=== PATIENT | male | born 1945 | race Caucasian/White ===

== ENCOUNTER 2017-07-09 18:58 | Inpatient (IN) ==
--- NOTE | 2017-07-09 19:22 | Emergency Department Note ---
Disposition Clinical Impression: Sepsis Qualifiers: Sepsis type: sepsis due to unspecified organism Qualified Code(s): A41.9 - Sepsis, unspecified organism UTI (urinary tract infection) Qualifiers: Urinary tract infection type: catheter-associated UTI Indwelling urinary catheter type: indwelling urethral catheter Encounter type: initial encounter Qualified Code(s): T83.511A - Infection and inflammatory reaction due to indwelling urethral catheter, initial encounter Disposition: Admitted As Inpatient Condition: Critical Time of Disposition: 07:43 General Adult HPI - General Chief complaint: ED Weakness Stated complaint: weakness Time Seen by Provider: 07/09/17 19:18 Source: patient Limitations: no limitations Nursing Notes Reviewed: Yes Vital Signs Reviewed: Yes - History of Present Illness HPI Narrative: Elevation brought in by EMS for generalized weakness. He stated that he will is unable to ambulate and had to hold himself up on a bathroom sink. This all started today. Patient has no complaints at this time other than generalized weakness. Pain Scale: 0 - Related Data Home Medications Medication Instructions Recorded Confirmed Labetalol HCl 300 mg PO TID 10/25/16 07/09/17 Lisinopril [Zestril] 40 mg PO DAILY 10/25/16 07/09/17 Pantoprazole Sodium [Protonix] 40 mg PO DAILY 10/25/16 07/09/17 Potassium Chloride [K-Tab ER] 20 meq PO DAILY 10/25/16 07/09/17 Rivaroxaban [Xarelto] 20 mg PO DAILY 10/25/16 07/09/17 SitaGLIPtin [Januvia] 100 mg PO DAILY 10/25/16 07/09/17 Tramadol HCl [Ultram] 50 mg PO TID PRN 10/25/16 07/09/17 Furosemide [Lasix] 40 mg PO DAILY 01/12/17 07/09/17 Carbidopa/Levodopa 1 tab PO HS 07/09/17 07/09/17 [Carbidopa-Levodopa 25-100 Tab] Cholecalciferol (Vitamin D3) 5,000 unit PO DAILY 07/09/17 07/09/17 [Vitamin D3] Metformin HCl [Metformin HCl ER] 1,000 mg PO BID 07/09/17 07/09/17 Allergies Allergy/AdvReac Type Severity Reaction Status Date / Time No Known Allergies Allergy Verified 09/05/15 12:17 Limitations: ROS unobtainable due to patients medical condition (He is alert and oriented to person place and time however his confused ) Past Medical History - Past Medical History Medical history: Reports: COPD, diabetes, GERD, hypertension, venous stasis Surgical history: Reports: appendectomy, herniorrhaphy, knee replacement, orthopedic, other Psychiatric history: Reports: no psych history - Social History Smoking Status: Never smoker Smokeless Tobacco Status: No Alcohol use: Reports: none Drug use: Reports: none Physical Exam - General Limitations: no limitations General appearance: alert, in no apparent distress, lethargic - Head Head exam: atraumatic, normocephalic, normal inspection - Eye Eye exam: Present: normal appearance, PERRL, EOMI. Absent: scleral icterus - ENT ENT exam: normal exam, normal oropharynx, mucous membranes moist - Neck Neck exam: Present: normal inspection, full ROM, trachea midline. Absent: tenderness, meningismus, lymphadenopathy - Chest Chest inspection: Present: normal inspection, symmetric chest wall rise. Absent : tenderness - Respiratory Respiratory exam: Present: normal lung sounds bilaterally. Absent: respiratory distress, accessory muscle use - Cardiovascular Cardiovascular exam: Present: regular rate, normal rhythm, normal heart sounds - Abdominal Exam Abdominal exam: Present: soft, Non-Tender, normal bowel sounds. Absent: tenderness, distention, guarding, rebound, rigidity, organomegaly - Extremities Exam Extremities exam: Present: normal inspection, full ROM, normal capillary refill. Absent: tenderness, pedal edema - Back Exam Back exam: Present: normal inspection, full ROM. Absent: tenderness, CVA tenderness (R), CVA tenderness (L) - Neurological Exam Neurological exam: Present: alert, oriented X3, other (Somewhat confused.) - Psychiatric Psychiatric exam: Present: normal affect, normal mood - Skin Skin exam: Present: warm, dry, intact, normal color. Absent: rash, cyanosis, diaphoresis, erythema Course Course Narrative: Patient brought in by EMS for possible fall. They state that he did not actually fall however he lost his balance and had to lean over the bathroom sink until someone could assist him in moving again. He does have a Adame catheter that he thinks he tripped over. He denies any loss of consciousness. The Adame is placed due to a malpositioned urethra. The patient appears lethargic at this time. He is alert and oriented to person place and time however quickly goes to sleep and talks about random things. He will not answer most of my questions. He appears to be somewhat confused. Patient's lung sounds are clear heart sounds are normal. He has a foul smell of urine about him. His abdomen is soft and nontender. His pressure is normal heart rate is tachycardic. I am concerned for sepsis with this patient. We have done a sepsis workup. Antibiotics and give him a fluid challenge. However he does have a history of CHF so we will not do a full 30 mg/kg bolus as he is a large individual. - Reevaluation(s) Reevaluation #1: Male patient has a UTI. I looked at the last culture. He has had several different strands of different bacterial strands in his urine. The last culture was resistant to several antibiotics. I have chosen Rocephin and levofloxacin as he was sensitive to this. Patient has received 2 L of fluids. He did appear to be dehydrated on arrival here. He does have a history of CHF so he stopped at 2 L. He was not hypotensive while here. However he was somewhat confused. I am not sure how far this is from his baseline. His family also appears to be somewhat confused. We will admit patient to the hospital. Time: 21:25 - Consultations Consultation #1: Dr Jackson accepted Pt in stable condition. Time: 21:45 Vital Signs Temperature 97.7 F 07/09/17 19:00 Pulse Rate 122 07/09/17 19:00 Respiratory Rate 20 07/09/17 19:00 Blood Pressure 120/67 07/09/17 19:00 O2 Sat by Pulse Oximetry 87 07/09/17 19:00 Temperature 99.0 F 07/10/17 07:24 Pulse Rate 86 07/10/17 07:24 Respiratory Rate 19 07/10/17 07:24 Blood Pressure 105/69 07/10/17 07:24 O2 Sat by Pulse Oximetry 97 07/10/17 07:24 Oxygen Delivery Oxygen Delivery Room Air Medical Decision Making - Medical Records Medical records reviewed: Yes I reviewed the patient's medical records. - Lab Data Lab results reviewed: Yes I reviewed the patient's lab results. Result diagrams: 07/10/17 05:35 07/10/17 05:35 Lab Results 07/09/17 07/09/17 07/09/17 Range/Units 19:14 19:14 19:14 WBC 20.4 H (4.3-11.1) K/mcL RBC 4.73 (4.19-5.50) M/mcL Hgb 12.5 L (12.9-16.9) g/dL Hct 40.7 (37.5-50.1) % MCV 86.0 (83.0-100.0) fL MCH 26.4 L (28.0-33.3) pg MCHC 30.7 L (31.6-35.5) g/dL RDW 14.5 (11.5-14.5) % Plt Count 270 (140-400) K/mcL MPV 10.8 (9.4-12.4) fL Immature Gran % 0.4 (0-4) % Seg Neutrophils % 91.6 % Lymphocytes % 2.2 % Monocytes % 5.4 % Eosinophils % 0.1 % Basophils % 0.3 % Neutrophils # 18.7 H (1.6-8.9) K/mcL Lymphocytes # 0.5 L (0.6-4.6) K/mcL Monocytes # 1.1 (0.0-1.3) K/mcL Eosinophils # 0.0 (0.0-0.6) K/mcL Basophils # 0.1 (0.0-0.2) K/mcL PT 14.2 H (9.4-12.1) Seconds INR 1.3 APTT 30.0 (26.0-36.0) Seconds Sodium 133 L (136-145) mEq/L Potassium 4.1 (3.5-4.5) mEq/L Chloride 96 L (98-109) mEq/L Carbon Dioxide 28 (19-29) mEq/L BUN 30 H (8-26) mg/dL Creatinine 1.38 H (0.72-1.25) mg/dL Est GFR ( Amer) > 60 (> 60) Est GFR (Non-Af Amer) 51 L (> 60) BUN/Creatinine Ratio 22 (6-26) Glucose 265 H (70-99) mg/dL Calculated Osmolality 291 (280-300) Lactic Acid (0.5-2.2) mmol/L Calcium 9.4 (8.6-10.8) mg/dL Phosphorus 1.8 L (2.3-4.7) mg/dL Magnesium 1.4 L (1.6-2.6) mg/dL Total Bilirubin 0.8 (0.2-1.2) mg/dL Direct Bilirubin 0.4 (0.0-0.5) mg/dL Indirect Bilirubin 0.4 (0.0-1.2) mg/dL AST 15 (5-34) Units/L ALT 11 (0-55) Units/L Alkaline Phosphatase 96 (38-126) Units/L Troponin I (0-0.03) ng/mL Serum Total Protein 7.0 (6.0-8.3) g/dL Albumin 3.4 L (3.5-5.0) g/dL Globulin 3.6 H (2.4-3.5) g/dL Albumin/Globulin Ratio 0.9 L (1.1-2.2) Urine Color (Yellow) Urine Clarity (Clear) Urine pH (5.0-8.0) pH Units Ur Specific Ruffin (1.010-1.025) Urine Protein (Neg-Trace) mg/dL Urine Glucose (UA) (Normal) mg/dL Urine Ketones (Negative) mg/dL Urine Blood (Negative) Urine Nitrite (Negative) Urine Bilirubin (Negative) Urine Urobilinogen (Normal) mg/dL Ur Leukocyte Esterase (Negative) Urine Microscopic RBC (0-3) per hpf Urine Microscopic WBC (0-3) per hpf Ur Squamous Epith Cells (None-Few) per lpf Urine Bacteria (None-Few) per hpf Hyaline Casts (None-Few) per lpf Ur Culture Indicated? (NO) 07/09/17 07/09/17 07/09/17 Range/Units 19:14 19:53 20:53 WBC (4.3-11.1) K/mcL RBC (4.19-5.50) M/mcL Hgb (12.9-16.9) g/dL Hct (37.5-50.1) % MCV (83.0-100.0) fL MCH (28.0-33.3) pg MCHC (31.6-35.5) g/dL RDW (11.5-14.5) % Plt Count (140-400) K/mcL MPV (9.4-12.4) fL Immature Gran % (0-4) % Seg Neutrophils % % Lymphocytes % % Monocytes % % Eosinophils % % Basophils % % Neutrophils # (1.6-8.9) K/mcL Lymphocytes # (0.6-4.6) K/mcL Monocytes # (0.0-1.3) K/mcL Eosinophils # (0.0-0.6) K/mcL Basophils # (0.0-0.2) K/mcL PT (9.4-12.1) Seconds INR APTT (26.0-36.0) Seconds Sodium (136-145) mEq/L Potassium (3.5-4.5) mEq/L Chloride (98-109) mEq/L Carbon Dioxide (19-29) mEq/L BUN (8-26) mg/dL Creatinine (0.72-1.25) mg/dL Est GFR ( Amer) (> 60) Est GFR (Non-Af Amer) (> 60) BUN/Creatinine Ratio (6-26) Glucose (70-99) mg/dL Calculated Osmolality (280-300) Lactic Acid 1.5 (0.5-2.2) mmol/L Calcium (8.6-10.8) mg/dL Phosphorus (2.3-4.7) mg/dL Magnesium (1.6-2.6) mg/dL Total Bilirubin (0.2-1.2) mg/dL Direct Bilirubin (0.0-0.5) mg/dL Indirect Bilirubin (0.0-1.2) mg/dL AST (5-34) Units/L ALT (0-55) Units/L Alkaline Phosphatase (38-126) Units/L Troponin I 0.01 (0-0.03) ng/mL Serum Total Protein (6.0-8.3) g/dL Albumin (3.5-5.0) g/dL Globulin (2.4-3.5) g/dL Albumin/Globulin Ratio (1.1-2.2) Urine Color Dark Yellow (Yellow) Urine Clarity Cloudy A (Clear) Urine pH 6.0 (5.0-8.0) pH Units Ur Specific Ruffin 1.023 (1.010-1.025) Urine Protein 30 H (Neg-Trace) mg/dL Urine Glucose (UA) Normal (Normal) mg/dL Urine Ketones Trace H (Negative) mg/dL Urine Blood Large H (Negative) Urine Nitrite Positive A (Negative) Urine Bilirubin Negative (Negative) Urine Urobilinogen Normal (Normal) mg/dL Ur Leukocyte Esterase Moderate H (Negative) Urine Microscopic RBC 15-30 H (0-3) per hpf Urine Microscopic WBC 15-30 H (0-3) per hpf Ur Squamous Epith Cells Many H (None-Few) per lpf Urine Bacteria None Seen (None-Few) per hpf Hyaline Casts Few (None-Few) per lpf Ur Culture Indicated? YES A (NO) 07/09/17 Range/Units 21:20 WBC (4.3-11.1) K/mcL RBC (4.19-5.50) M/mcL Hgb (12.9-16.9) g/dL Hct (37.5-50.1) % MCV (83.0-100.0) fL MCH (28.0-33.3) pg MCHC (31.6-35.5) g/dL RDW (11.5-14.5) % Plt Count (140-400) K/mcL MPV (9.4-12.4) fL Immature Gran % (0-4) % Seg Neutrophils % % Lymphocytes % % Monocytes % % Eosinophils % % Basophils % % Neutrophils # (1.6-8.9) K/mcL Lymphocytes # (0.6-4.6) K/mcL Monocytes # (0.0-1.3) K/mcL Eosinophils # (0.0-0.6) K/mcL Basophils # (0.0-0.2) K/mcL PT (9.4-12.1) Seconds INR APTT (26.0-36.0) Seconds Sodium (136-145) mEq/L Potassium (3.5-4.5) mEq/L Chloride (98-109) mEq/L Carbon Dioxide (19-29) mEq/L BUN (8-26) mg/dL Creatinine (0.72-1.25) mg/dL Est GFR ( Amer) (> 60) Est GFR (Non-Af Amer) (> 60) BUN/Creatinine Ratio (6-26) Glucose (70-99) mg/dL Calculated Osmolality (280-300) Lactic Acid 1.3 (0.5-2.2) mmol/L Calcium (8.6-10.8) mg/dL Phosphorus (2.3-4.7) mg/dL Magnesium (1.6-2.6) mg/dL Total Bilirubin (0.2-1.2) mg/dL Direct Bilirubin (0.0-0.5) mg/dL Indirect Bilirubin (0.0-1.2) mg/dL AST (5-34) Units/L ALT (0-55) Units/L Alkaline Phosphatase (38-126) Units/L Troponin I (0-0.03) ng/mL Serum Total Protein (6.0-8.3) g/dL Albumin (3.5-5.0) g/dL Globulin (2.4-3.5) g/dL Albumin/Globulin Ratio (1.1-2.2) Urine Color (Yellow) Urine Clarity (Clear) Urine pH (5.0-8.0) pH Units Ur Specific Ruffin (1.010-1.025) Urine Protein (Neg-Trace) mg/dL Urine Glucose (UA) (Normal) mg/dL Urine Ketones (Negative) mg/dL Urine Blood (Negative) Urine Nitrite (Negative) Urine Bilirubin (Negative) Urine Urobilinogen (Normal) mg/dL Ur Leukocyte Esterase (Negative) Urine Microscopic RBC (0-3) per hpf Urine Microscopic WBC (0-3) per hpf Ur Squamous Epith Cells (None-Few) per lpf Urine Bacteria (None-Few) per hpf Hyaline Casts (None-Few) per lpf Ur Culture Indicated? (NO) - Radiology Data Radiology results reviewed: Yes I reviewed the patient's radiology results. Chest X-Ray 07/09/17 19:20 IMPRESSION: Mild asymmetric prominence of the left perihilar markings, likely accentuated by decreased inspiratory effort. No overt failure. D/ / Jeovanny Lewis MD / Jeovanny Lewis MD Interpreting Provider: Jeovanny Lewis MD - EKG Data EKG #1 EKG attestation: Yes I reviewed and interpreted this EKG. EKG results narrative: Sinus tachycardia at a rate of 1:15. Pulse 171. QS duration is 102. QT is 3:15. QTC is 383. No signs of acute ischemia. No significant change from previous EKG dated 10/24/2016. Attestation Statement - Attestation Attestation: I, Anthony Arreguin MD, personally evaluated this patient and discussed their management with the resident physician. I reviewed the resident's note and agree with the documented findings, medical decision making, and plan of care. 71-year-old male presents to the emergency department with complaint of increased generalized weakness and confusion. Patient states that he just had a spell of weakness and was unable to ambulate. He was standing and leaning on a cabinet. He normally ambulates using a walker. Family reports that he has been weaker than usual the past few days and also more confused than usual. They have not noticed any fever. Patient has home oxygen that he uses as needed. Family reports he has been using it more the last few days. No significant cough or obvious shortness of breath. No chest pain. No vomiting or diarrhea. Patient has a chronic indwelling Adame catheter and states that last night he dropped the bag on the floor and it pulled on the catheter causing some blood in the urine. On examination the patient is a morbidly obese elderly male in no acute distress. He is alert and answers questions but seems pleasantly confused. She appears slightly pale. No cyanosis or diaphoresis. Chest is nontender to palpation. Breath sounds are equal bilaterally. Heart regular with a mild tachycardia. Abdomen soft and nontender with normal bowel sounds. Labs reviewed. WBC 20. 91% segs. UTI. No acute infiltrate on chest x-ray. The hospitalist, Dr. Jackson, was consulted and accepted admission of the patient.
[2017-07-09 19:40] LABS: Basophils # 0.1 K/mcL (0.0-0.2); Basophils % 0.3 %; Eosinophils % 0.1 %; Hematocrit 40.7 % (37.5-50.1); Hemoglobin 12.5 g/dL (12.9-16.9); INR 1.3; Immature Granulocytes % 0.4 % (0-4); Lymphocytes # 0.5 K/mcL (0.6-4.6); Lymphocytes % 2.2 %; Mean Corpuscular HGB Conc 30.7 g/dL (31.6-35.5); Mean Corpuscular Hemoglobin 26.4 pg (28.0-33.3); Mean Platelet Volume 10.8 fL (9.4-12.4); Monocytes # 1.1 K/mcL (0.0-1.3); Monocytes % 5.4 %; Neutrophils # 18.7 K/mcL (1.6-8.9); Platelet Count 270 K/mcL (140-400); Prothrombin Time 14.2 Seconds (9.4-12.1); Red Blood Count 4.73 M/mcL (4.19-5.50); Red Cell Distribution Width 14.5 % (11.5-14.5); Segmented Neutrophils % 91.6 %
[2017-07-09 19:43] LABS: Alanine Aminotransferase 11 Units/L (0-55); Albumin 3.4 g/dL (3.5-5.0); Albumin/Globulin Ratio 0.9 (1.1-2.2); Alkaline Phosphatase 96 Units/L (38-126); Aspartate Amino Transferase 15 Units/L (5-34); BUN/Creatinine Ratio 22 (6-26); Bilirubin,Direct 0.4 mg/dL (0.0-0.5); Bilirubin,Indirect 0.4 mg/dL (0.0-1.2); Bilirubin,Total 0.8 mg/dL (0.2-1.2); Blood Urea Nitrogen 30 mg/dL (8-26); Calcium 9.4 mg/dL (8.6-10.8); Carbon Dioxide 28 mEq/L (19-29); Chloride 96 mEq/L (98-109); Globulin 3.6 g/dL (2.4-3.5); Glucose 265 mg/dL (70-99); Magnesium 1.4 mg/dL (1.6-2.6); Osmolality,Calculated 291 (280-300); Phosphorous 1.8 mg/dL (2.3-4.7); Potassium 4.1 mEq/L (3.5-4.5); Sodium 133 mEq/L (136-145); eGFR For African Americans > 60 (> 60); eGFR For Non-African Americans 51 (> 60)
[2017-07-09] MEDS: 0.9 % Sodium Chloride 1,000 ML IVC SCH ×2 (19:55→20:56)
[2017-07-09 20:57] LABS: Bilirubin,Urine Negative (Negative); Blood,Urine Large (Negative); Clarity,Urine Cloudy (Clear); Color,Urine Dark Yellow (Yellow); Glucose,Urine (UA) Normal (Normal); Ketones,Urine Trace mg/dL (Negative); Leukocyte Esterase,Urine Moderate (Negative); Nitrite,Urine Positive (Negative); Protein,Urine 30 mg/dL (Neg-Trace); Specific Gravity,Urine 1.023 (1.010-1.025); Urobilinogen,Urine Normal (Normal)
[2017-07-09 21:02] LABS: Bacteria,Urine None Seen per hpf (None-Few); Squamous Epithelial Cell,Urine Many per lpf (None-Few); WBC,Urine 15-30 per hpf (0-3)
[2017-07-09 21:18] LABS: Hyaline Casts,Urine Few per lpf (None-Few); RBC,Urine 15-30 per hpf (0-3)
[2017-07-09] MEDS ORDERED: Levofloxacin 750 MG/150 ML 750 MG/150 ML BAG IVPB ONE (21:22)
[2017-07-09] MEDS ORDERED: Ondansetron 4 MG/2 ML VIAL IVP PRN (23:24)
[2017-07-09] MEDS ORDERED: traMADol 50 MG TABLET PO PRN (23:27)
[2017-07-09] MEDS ORDERED: *HR* Dextrose 50 % in Water (Syg) 50 ML SYRINGE IVP PRN (23:30)
[2017-07-09] MEDS ORDERED: Dextrose Gel 15 GM PO PRN ×2 (23:30)
[2017-07-09] MEDS ORDERED: D5% in Water 1,000 ML IVC PRN (23:30)
--- NOTE | 2017-07-09 23:36 | Internal Med History&Physical ---
<Ori Degroot - Last Filed: 07/10/17 01:05> Date of Encounter: 07/09/17 Time of Encounter: 22:50 Assessment and Plan (1) Sepsis Current visit: Yes Status: Acute - 2 SIRS criteria (WBC 20.4 and HR 122 in ED). Lactic acid 1.5. - Likely secondary to UTI given positive UA. - CXR found no acute abnormality. - Blood cultures and urine culture pending. - Patient had received 2L of IV NS in ED. - Start IV cefepime. - Admit to hospital for close monitoring and IV antibiotic. Time spent on admission: 40 minutes. Qualifiers: Sepsis type: sepsis due to unspecified organism Qualified Code(s): A41.9 - Sepsis, unspecified organism (2) UTI (urinary tract infection) Current visit: Yes Status: Acute - On chronic indwelling urinary catheter. - UA has positive nitrite and leukocyte esterase suggestive of UTI. Urine culture pending. - Prior urine culture from 02/21/17 grew fluoroquinolone-resistent Proteus mirabilis and ceftriaxone-resistent Enterobacter cloacae. Both are sensitive to amikacin, cefepime and Bactrim. - Start IV cefepime. Further de-escalation based on clinical picture and culture result. Qualifiers: Urinary tract infection type: catheter-associated UTI Indwelling urinary catheter type: indwelling urethral catheter Encounter type: initial encounter Qualified Code(s): T83.511A - Infection and inflammatory reaction due to indwelling urethral catheter, initial encounter; N39.0 - Urinary tract infection , site not specified (3) SUNI (acute kidney injury) Current visit: Yes Status: Acute - SCr 1.38 on admission, which is worse compared to 0.98 on 06/30/17. - Likely pre-renal secondary diuretic use and/or current sepsis. - Hold diuretic for now. - Cautious about hydration with IV fluid given patient's dCHF history. - Avoid nephrotoxin. - Continue to monitor renal function and electrolytes. (4) Hypomagnesemia Current visit: Yes Status: Acute - Mg 1.4 on admission. - Will give 1 gram of MgSO4 IV. - Continue to monitor. (5) Diastolic CHF Current visit: Yes Status: Chronic - LVEF 65% with moderate diastolic dysfunction per echo from 10/25/16. - Hold diuretic for now given current SUNI. - Cautious about IV fluid administration. - Strict I/O and daily weight. Qualifiers: Congestive heart failure chronicity: chronic Qualified Code(s): I50.32 - Chronic diastolic (congestive) heart failure (6) Diabetes mellitus Current visit: Yes Status: Chronic - Controlled DM with Hgb A1C 7.0 on 06/30/17 - Insulin sliding scale with routine AccuCheck. - Diabetic diet. Qualifiers: Diabetes mellitus type: type 2 Diabetes mellitus complication status: with unspecified complications Diabetes mellitus chcf insulin use: without emt intermediate use Qualified Code(s): E11.8 - Type 2 diabetes mellitus with unspecified complications (7) A-fib Current visit: Yes Status: Chronic - Continue beta anastacio for rate control and Xarelto for anticoagulation. Qualifiers: Atrial fibrillation type: chronic Qualified Code(s): I48.2 - Chronic atrial fibrillation (8) DVT prophylaxis Current visit: No Status: Acute - On Xarelto. Internal Medicine - H&P: HPI Chief complaint: Generalized weakness Admitted From: Emergency Dept Plans for Post Hospital Care: Home History of present illness: Mr. Jimenez is a 71 year old male with DM, HTN, GERD, chronic A-fib on Xarelto, dCHF (LVEF 65% with moderate diastolic dysfunction per echo from 10/25/16) and on chronic indwelling urinary catheter due to morbid obesity & incontinence ( last change by Dr. Goldberg on 07/03/17). Patient presented with a complaint of generalized weakness. Per ED note, patient's family reports that patient has been weaker than usual the past few days and also more confused than usual. On my encounter, there is no family member at bedside but patient is able to tell me his name, place, year and month. Patient reports having a fall in bathroom due to the generalized weakness today and unable to get up. Patient denies hitting his head or loss of consciousness. Patient also reports he dropped the urine bag on the floor last night and resulted in the catheter being partially pulled out and some blood in the urine noted afterward. Patient reports having chronic right hip pain and he may get right hip replacement in near future. Patient denies fever, chills, nausea, vomiting, diarrhea, abdominal pain, chest pain, shortness of breath, cough, vision change, hearing change, numbness/ tingling. Patient is full code. Patient was noted to have WBC 20.4 and HR 122 in ED. UA has positive nitrite and moderate leukocyte esterase suggestive of UTI and IV Levaquin and Rocephin were given along with 2L of IV NS bolus. Past Med Surg Social Fam HX - Past Medical History Medical history: arthritis, COPD, diabetes, GERD, hypertension, venous stasis Psychiatric history: no psych history - Past Surgical History Surgical History: appendectomy, herniorrhaphy, knee replacement (Left (2011) and right (2012)), orthopedic, other - Social History Smoking Status: Never smoker Smokeless Tobacco Status: No Alcohol use: none Drug use: none - Family History Mother Hx Family Cardiac Disorders: Yes (HTN) Father Hx Family Cardiac Disorders: Yes (HTN, CHF) Internal Medicine - H&P: Meds Labetalol HCl 300 mg PO TID 10/25/16 [History] Lisinopril [Zestril] 40 mg PO DAILY 10/25/16 [History] Pantoprazole Sodium [Protonix] 40 mg PO DAILY 10/25/16 [History] Potassium Chloride [K-Tab ER] 20 meq PO DAILY 10/25/16 [History] Rivaroxaban [Xarelto] 20 mg PO DAILY 10/25/16 [History] SitaGLIPtin [Januvia] 100 mg PO DAILY 10/25/16 [History] Tramadol HCl [Ultram] 50 mg PO TID PRN 10/25/16 [History] Furosemide [Lasix] 40 mg PO DAILY 01/12/17 [History] Carbidopa/Levodopa [Carbidopa-Levodopa 25-100 Tab] 1 tab PO HS 07/09/17 [History ] Cholecalciferol (Vitamin D3) [Vitamin D3] 5,000 unit PO DAILY 07/09/17 [History] Metformin HCl [Metformin HCl ER] 1,000 mg PO BID 07/09/17 [History] 3 Allergy/AdvReac Type Severity Reaction Status Date / Time No Known Allergies Allergy Verified 09/05/15 12:17 All Systems PM: A 10-system review of systems was performed and is negative for pertinent findings except as documented above in the HPI. - Constitutional Constitutional: weakness, no anorexia, no chills, no fever(s) - EENT Eyes: no change in vision Ears: no decreased hearing Nose, mouth and throat: no dysphagia, no odynophagia - Cardiovascular Cardiovascular ROS IM: no chest pain, no lightheadedness, no syncope - Respiratory Respiratory: no cough, no dyspnea, no hemoptysis - Gastrointestinal Gastrointestinal: no abdominal pain, no diarrhea, no nausea, no vomiting - Genitourinary Genitourinary ROS male: hematuria - Musculoskeletal Musculoskeletal ROS IM: arthralgias (Chronic right hip pain), no myalgias - Integumentary Integumentary IM: no pruritus, no rash - Neurological Neurological ROS: no numbness, no tingling - Hematologic/Lymphatic Hematologic/Lymphatic: no easy bleeding, no easy bruising - Constitutional Vitals: Temp Pulse Resp BP Pulse Ox 0 F L 102 20 144/87 96 07/09/17 22:39 07/09/17 21:05 07/09/17 22:39 07/09/17 22:39 07/09/17 21:05 General appearance: Present: cooperative, A&O X 3, no acute distress - Head Head exam: Present: atraumatic, normocephalic - Eye Eye exam: Present: EOMI, PERRL, conjuntiva pink, sclera anicteric - ENT ENT exam: Present: mucous membranes dry - Neck Neck exam general surgery: Present: supple, trachea midline. Absent: lymphadenopathy - Respiratory Respiratory exam: Present: CTAB. Absent: accessory muscle use, rales, rhonchi, wheezes - Cardiovascular Cardiovascular exam: Present: +S1, +S2, tachycardia. Absent: diastolic murmur, gallop, rubs, systolic murmur - GI/Abdominal GI/Abdominal exam: Present: normal bowel sounds, soft, no peritoneal signs. Absent: distended, tenderness - Additional comments: Some dry blood noted on penis and adjacent urinary catheter, likely secondary to reported prior pulling out accident. - Extremities Exam Extremities exam: Present: pedal edema (Moderate to severe BLE pitting edema.), warm, radial pulses palpable and symmetrical. Absent: calf tenderness, cyanotic - Neurological Exam Neurological exam: Present: CN II-XII intact, oriented X3, no focal deficits. Absent: pronater drift, facial droop, speech deficit - Skin Skin exam: Present: dry, warm Internal Med - H&P Results - Labs CBC & Chem 7: 07/09/17 19:14 07/09/17 19:14 <Christofer Jackson A - Last Filed: 07/10/17 04:26> Date of Encounter: 07/09/17 Assessment and Plan (1) Hypertension Current visit: Yes Status: Chronic will continue antihypertensive labetalol with BP monitoring Qualifiers: Hypertension type: essential hypertension Qualified Code(s): I10 - Essential (primary) hypertension (2) GERD (gastroesophageal reflux disease) Current visit: Yes Status: Chronic will continue home PPI Qualifiers: Esophagitis presence: without esophagitis Qualified Code(s): K21.9 - Gastro -esophageal reflux disease without esophagitis (3) COPD (chronic obstructive pulmonary disease) Current visit: Yes Status: Chronic will do PRN nebs Qualifiers: COPD type: chronic bronchitis Chronic bronchitis type: simple Qualified Code(s): J41.0 - Simple chronic bronchitis Internal Medicine - H&P: HPI History of present illness: Mr. Jimenez is a 71 year old male All Systems PM: A 10-system review of systems was performed and is negative for pertinent findings except as documented above in the HPI. - Constitutional Vitals: Temp Pulse Resp BP Pulse Ox 97.9 F 100 18 125/75 95 07/09/17 23:35 07/09/17 23:35 07/09/17 23:35 07/09/17 23:35 07/09/17 23:35 Adult male, obese looking,lying in bed, crusting around the corners of the eyes Abd: obese, scrotal swelling with erythema, tomlinson draining clear urine Extremities: significant bilateral lower extremity edema with stasis dermatitis and desquamating skin, Internal Med - H&P Results - Labs CBC & Chem 7: 07/09/17 19:14 07/09/17 19:14 - Diagnostic Studies Chest x-ray Status: image reviewed by me - Attending Attestation I personally interviewed and examined this patient and my medical decision- making was reviewed with the Resident Physician. I agree with the documented findings, disposition and treatment plan as described. Christofer Jackson MD, MPH Hospitalist
[2017-07-10] MEDS ORDERED: Magnesium Sulfate 1 GM in D5% in Water 100 ML IVPB ONE (01:43)
[2017-07-10] MEDS: Cefepime HCl 2,000 MG in D5% in Water (Mini-Bag+) 100 ML IVPB SCH ×2 (05:04→17:25)
[2017-07-10] MEDS: Acetaminophen 325 MG TABLET PO PRN (05:04)
[2017-07-10 06:13] LABS: Basophils # 0.1 K/mcL (0.0-0.2); Basophils % 0.3 %; Eosinophils % 0.1 %; Hematocrit 35.6 % (37.5-50.1); Immature Granulocytes % 0.6 % (0-4); Immature Platelets 2.8 % (1.1-6.1); Lymphocytes # 0.5 K/mcL (0.6-4.6); Lymphocytes % 3.1 %; Mean Corpuscular HGB Conc 30.9 g/dL (31.6-35.5); Mean Corpuscular Hemoglobin 26.7 pg (28.0-33.3); Mean Corpuscular Volume 86.4 fL (83.0-100.0); Mean Platelet Volume 11.1 fL (9.4-12.4); Monocytes % 6.5 %; Neutrophils # 14.2 K/mcL (1.6-8.9); Platelet Count 214 K/mcL (140-400); Red Blood Count 4.12 M/mcL (4.19-5.50); Red Cell Distribution Width 14.8 % (11.5-14.5); Segmented Neutrophils % 89.4 %
[2017-07-10 06:28] LABS: BUN/Creatinine Ratio 26 (6-26); Blood Urea Nitrogen 22 mg/dL (8-26); Calcium 8.5 mg/dL (8.6-10.8); Carbon Dioxide 30 mEq/L (19-29); Chloride 99 mEq/L (98-109); Glucose 181 mg/dL (70-99); Osmolality,Calculated 286 (280-300); Potassium 3.4 mEq/L (3.5-4.5); Sodium 134 mEq/L (136-145); eGFR For African Americans > 60 (> 60); eGFR For Non-African Americans > 60 (> 60)
[2017-07-10 06:53] LABS: Thyroid Stimulating Hormone 0.627 mcIU/mL (0.350-4.840)
[2017-07-10 07:02] LABS: Magnesium 1.7 mg/dL (1.6-2.6)
[2017-07-10] MEDS: *HR* Rivaroxaban 10 MG TABLET PO SCH (07:54)
[2017-07-10] MEDS: Insulin LISPRO 300 UNITS/3 ML VIAL SQ SCH ×4 (07:55→21:39)
--- NOTE | 2017-07-10 11:02 | Internal Med Progress Note ---
<Nuno Marie - Last Filed: 07/10/17 16:16> Date of Encounter: 07/10/17 Time of Encounter: 10:59 - Assessment and plan (1) Sepsis Current Visit: Yes Status: Acute Assessment and plan: upon admission, WBC 20.4, HR 122 lactic acid 1.5 source of infection likely secondary to UTI, chronic tomlinson catheter patient does have positive urine cultures in the past that grew proteus mirabilis, enterobacter cloacae, providecia stuarti, enterococcus faecalis. Plan: blood and urine cultures pending continue cefepime appreciate urology recs. Qualifiers: Sepsis type: sepsis due to unspecified organism Qualified Code(s): A41.9 - Sepsis, unspecified organism (2) UTI (urinary tract infection) Current Visit: Yes Status: Acute Assessment and plan: plan as above. Qualifiers: Urinary tract infection type: catheter-associated UTI Indwelling urinary catheter type: indwelling urethral catheter Encounter type: initial encounter Qualified Code(s): T83.511A - Infection and inflammatory reaction due to indwelling urethral catheter, initial encounter; N39.0 - Urinary tract infection , site not specified (3) SUNI (acute kidney injury) Current Visit: Yes Status: Resolved Assessment and plan: currently resolved. continue to monitor. likely pre-renal etiology due to sepsis. (4) Hypomagnesemia Current Visit: Yes Status: Resolved Assessment and plan: resolved (5) Diastolic CHF Current Visit: Yes Status: Chronic Assessment and plan: last echo 10/25/16 showed LVEF 65% moderate diastolic dysfunction of left ventricle, normal RV size and function, no significant valvular dysfunction, no pulmonary hypertension. Plan: resumed home dose of lasix, as SUNI has resolved. strict I/O, daily weight Qualifiers: Congestive heart failure chronicity: chronic Qualified Code(s): I50.32 - Chronic diastolic (congestive) heart failure (6) A-fib Current Visit: Yes Status: Chronic Assessment and plan: continue beta anastacio and xarelto. Qualifiers: Atrial fibrillation type: chronic Qualified Code(s): I48.2 - Chronic atrial fibrillation (7) Right hip pain Current Visit: Yes Status: Chronic Assessment and plan: chronic problem. Xray of right hip pending. (8) DVT prophylaxis Current Visit: No Status: Acute Assessment and plan: xarelto - Constitutional Vitals: Temp Pulse Resp BP Pulse Ox 99.0 F 86 19 105/69 97 07/10/17 07:24 07/10/17 07:24 07/10/17 07:24 07/10/17 07:24 07/10/17 07:24 General appearance: Present: cooperative, A&O X 3, no acute distress Internal Medicine: Result - Labs CBC & Chem 7: 07/10/17 05:35 07/10/17 05:35 Labs: Short CBC 07/10/17 Range/Units 05:35 WBC 15.9 H (4.3-11.1) K/mcL Hgb 11.0 L D (12.9-16.9) g/dL Hct 35.6 L (37.5-50.1) % Plt Count 214 (140-400) K/mcL Neutrophils # 14.2 H (1.6-8.9) K/mcL BMP 07/10/17 05:35 Sodium 134 L Potassium 3.4 L Chloride 99 Carbon Dioxide 30 H BUN 22 Creatinine 0.86 Glucose 181 H Calcium 8.5 L - ABG Interpretation ABG results: PT/INR, D-dimer PT 14.2 Seconds (9.4-12.1) H 07/09/17 19:14 Consult Discharge Plan - Plan Referrals: Bulmaro Negro MD [Primary Care Provider] - Augustine Ya MD [Partnered Physician] - 07/17/17 10:00 am <Luis Quintero P - Last Filed: 07/10/17 20:09> Date of Encounter: 07/10/17 - Constitutional Vitals: Temp Pulse Resp BP Pulse Ox 98.7 F 83 17 120/73 91 07/10/17 18:51 07/10/17 18:51 07/10/17 18:51 07/10/17 18:51 07/10/17 18:51 Internal Medicine: Result - Labs CBC & Chem 7: 07/10/17 05:35 07/10/17 05:35 Labs: Short CBC 07/10/17 Range/Units 05:35 WBC 15.9 H (4.3-11.1) K/mcL Hgb 11.0 L D (12.9-16.9) g/dL Hct 35.6 L (37.5-50.1) % Plt Count 214 (140-400) K/mcL Neutrophils # 14.2 H (1.6-8.9) K/mcL BMP 07/10/17 05:35 Sodium 134 L Potassium 3.4 L Chloride 99 Carbon Dioxide 30 H BUN 22 Creatinine 0.86 Glucose 181 H Calcium 8.5 L - ABG Interpretation ABG results: PT/INR, D-dimer PT 14.2 Seconds (9.4-12.1) H 07/09/17 19:14 - Impressions Impressions Hip X-Ray 07/10/17 10:14 IMPRESSION: Severe right and moderate to severe left 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 Mild sclerosis within the right femoral head, with subchondral cystic change in the acetabulum and femoral head. No femoral head deformity or acute osseous fracture is identified. No dislocation. D/ / Jeovanny Arellano MD / Jeovanny Arellano MD Interpreting Provider: Jeovanny Arellano MD - Attending Attestation I examined this patient and my medical decision-making was reviewed with the Resident Physician. I agree with the documented findings, disposition and treatment plan as described except to the extent set forth below. Patient's blood cultures/urine culture shows gram-negative bacteremia. Patient is on IV cefepime. Plan: Will continue present medications. Await for cultures and sensitivity. Urology input appreciated.
[2017-07-10] MEDS: Furosemide 40 MG TABLET PO SCH (12:26)
--- NOTE | 2017-07-10 17:13 | Electrocardiograph Report ---
[address] [address] Test Date: 2017-07-09 Pat Name: Anders Jimenez Department: 102 Room: 2A16 Gender: M Obstetrics Gyn: : 1945 Requested By: Kyra Hartman Order Number: [id number] Reading MD: Jumana Christian Measurements Intervals [place] Rate: 115 P: 36 W[place]: 171 QRS: -24 QRSD: 102 T: 18 QT: 315 QTc: 383 Interpretive Statements SINUS TACHYCARDIA BORDERLINE LEFT AXIS DEVIATION POOR R WAVE PROGRESSION ABNORMAL RHYTHM ECG Electronically Signed On 07-10-2017 17:10:57 EDT by Jumana Christian
--- NOTE | 2017-07-10 17:47 | Urology - Consult Note ---
Date of Encounter: 07/10/17 Time of Encounter: 17:44 - Assessment and Plan (1) UTI (urinary tract infection) Current Visit: Yes Status: Acute Assessment and plan: 71-year-old gentleman with a history of urinary tract infection and an indwelling catheter. Continue on the IV cefepime. We will wait to see the results of the blood cultures. Continue the indwelling catheter for now. This catheter doesn't need to be changed at this time. It was just changed approximately 7 days ago. Urology will continue to follow along. Thank you very much for allowing me to participate in the care of Mr. Jimenez. Qualifiers: Urinary tract infection type: catheter-associated UTI Indwelling urinary catheter type: indwelling urethral catheter Encounter type: initial encounter Qualified Code(s): T83.511A - Infection and inflammatory reaction due to indwelling urethral catheter, initial encounter; N39.0 - Urinary tract infection , site not specified Urology CN:HPI Consult date: 07/10/17 Reason for consult Urology: Other (indwelling catheter) Requesting physician: Luis Quintero History of present illness: 71-year-old man with an indwelling catheter was admitted for a urinary tract infection. He says that he fell asleep on his catheter and it impinged upon the outflow. He woke up and had difficulty going to the restroom and fell. His catheter was pulled upon and he had some blood in the urine. He was then brought by the squad to the hospital for further evaluation. Blood cultures have been positive for gram-negative rods. He has an indwelling catheter in the urine has been clear. He denies any fevers or chills at this time. His catheter was last changed on July 03, 2017. Past Med Surg Social Fam HX - Past Medical History Medical history: COPD, diabetes, GERD, hypertension, venous stasis Psychiatric history: no psych history - Past Surgical History Surgical History: appendectomy, herniorrhaphy, knee replacement, orthopedic, other - Social History Smoking Status: Never smoker Smokeless Tobacco Status: No Alcohol use: none Drug use: none - Family History Mother Hx Family Cardiac Disorders: Yes (HTN) Father Hx Family Cardiac Disorders: Yes (HTN, CHF) Medications and Allergies Labetalol HCl 300 mg PO TID 10/25/16 [History] Lisinopril [Zestril] 40 mg PO DAILY 10/25/16 [History] Pantoprazole Sodium [Protonix] 40 mg PO DAILY 10/25/16 [History] Potassium Chloride [K-Tab ER] 20 meq PO DAILY 10/25/16 [History] Rivaroxaban [Xarelto] 20 mg PO DAILY 10/25/16 [History] SitaGLIPtin [Januvia] 100 mg PO DAILY 10/25/16 [History] Tramadol HCl [Ultram] 50 mg PO TID PRN 10/25/16 [History] Furosemide [Lasix] 40 mg PO DAILY 01/12/17 [History] Carbidopa/Levodopa [Carbidopa-Levodopa 25-100 Tab] 1 tab PO HS 07/09/17 [History ] Cholecalciferol (Vitamin D3) [Vitamin D3] 5,000 unit PO DAILY 07/09/17 [History] Metformin HCl [Metformin HCl ER] 1,000 mg PO BID 07/09/17 [History] 3 Allergy/AdvReac Type Severity Reaction Status Date / Time No Known Allergies Allergy Verified 09/05/15 12:17 Review of Systems - Constitutional no chills, no fever(s) - EENT Nose, mouth and throat: no dizziness - Cardiovascular no chest pain - Respiratory no dyspnea - Gastrointestinal no nausea, no vomiting - Genitourinary no flank pain, no hematuria - Musculoskeletal no back pain - Integumentary no erythema, no rash - Neurological no weakness - Psychiatric no suicidal ideation - Hematologic/Lymphatic no easy bleeding - Allergic/Immunologic no wheezing Exam Initial Vital Signs Temp Pulse Resp BP Pulse Ox 97.7 F 122 20 120/67 87 07/09/17 19:00 07/09/17 19:00 07/09/17 19:00 07/09/17 19:00 07/09/17 19:00 - General physical appearance Present: well developed, well nourished, no distress - Eyes Absent: icteric - ENT Present: normal nares - Neck Present: trachea midline - Respiratory Present: normal respiratory effort - Cardiovascular Cardiovascular exam IM: RRR - Abdomen Abdomen: Present: soft - Genitourinary other (Catheter in place. Urine is clear. Penis is retracted into suprapubic fat pad.) Urology Results - Labs 07/10/17 05:35 07/10/17 05:35 Abnormal lab results WBC 15.9 K/mcL (4.3-11.1) H 07/10/17 05:35 RBC 4.12 M/mcL (4.19-5.50) L 07/10/17 05:35 Hgb 11.0 g/dL (12.9-16.9) L D 07/10/17 05:35 Hct 35.6 % (37.5-50.1) L 07/10/17 05:35 MCH 26.7 pg (28.0-33.3) L 07/10/17 05:35 MCHC 30.9 g/dL (31.6-35.5) L 07/10/17 05:35 RDW 14.8 % (11.5-14.5) H 07/10/17 05:35 Neutrophils # 14.2 K/mcL (1.6-8.9) H 07/10/17 05:35 Lymphocytes # 0.5 K/mcL (0.6-4.6) L 07/10/17 05:35 PT 14.2 Seconds (9.4-12.1) H 07/09/17 19:14 Sodium 134 mEq/L (136-145) L 07/10/17 05:35 Potassium 3.4 mEq/L (3.5-4.5) L 07/10/17 05:35 Carbon Dioxide 30 mEq/L (19-29) H 07/10/17 05:35 Glucose 181 mg/dL (70-99) H 07/10/17 05:35 POC Glucose 156 (58-89) H 07/10/17 07:35 Calcium 8.5 mg/dL (8.6-10.8) L 07/10/17 05:35 Phosphorus 1.8 mg/dL (2.3-4.7) L 07/09/17 19:14 Albumin 3.4 g/dL (3.5-5.0) L 07/09/17 19:14 Globulin 3.6 g/dL (2.4-3.5) H 07/09/17 19:14 Albumin/Globulin Ratio 0.9 (1.1-2.2) L 07/09/17 19:14 Urine Clarity Cloudy (Clear) A 07/09/17 20:53 Urine Protein 30 mg/dL (Neg-Trace) H 07/09/17 20:53 Urine Ketones Trace mg/dL (Negative) H 07/09/17 20:53 Urine Blood Large (Negative) H 07/09/17 20:53 Urine Nitrite Positive (Negative) A 07/09/17 20:53 Ur Leukocyte Esterase Moderate (Negative) H 07/09/17 20:53 Urine Microscopic RBC 15-30 per hpf (0-3) H 07/09/17 20:53 Urine Microscopic WBC 15-30 per hpf (0-3) H 07/09/17 20:53 Ur Squamous Epith Cells Many per lpf (None-Few) H 07/09/17 20:53 Ur Culture Indicated? YES (NO) A 07/09/17 20:53 Diabetes panel 07/10/17 Range/Units 05:35 Sodium 134 L (136-145) mEq/L Potassium 3.4 L (3.5-4.5) mEq/L Chloride 99 (98-109) mEq/L Carbon Dioxide 30 H (19-29) mEq/L BUN 22 (8-26) mg/dL Creatinine 0.86 (0.72-1.25) mg/dL Glucose 181 H (70-99) mg/dL Calcium 8.5 L (8.6-10.8) mg/dL Thyroid panel 07/10/17 Range/Units 05:35 TSH 0.627 (0.350-4.840) mcIU/mL Calcium panel 07/10/17 Range/Units 05:35 Calcium 8.5 L (8.6-10.8) mg/dL Pituitary panel 07/10/17 Range/Units 05:35 Sodium 134 L (136-145) mEq/L Potassium 3.4 L (3.5-4.5) mEq/L Chloride 99 (98-109) mEq/L Carbon Dioxide 30 H (19-29) mEq/L BUN 22 (8-26) mg/dL Creatinine 0.86 (0.72-1.25) mg/dL Glucose 181 H (70-99) mg/dL Calcium 8.5 L (8.6-10.8) mg/dL TSH 0.627 (0.350-4.840) mcIU/mL Adrenal panel 07/10/17 Range/Units 05:35 Sodium 134 L (136-145) mEq/L Potassium 3.4 L (3.5-4.5) mEq/L Chloride 99 (98-109) mEq/L Carbon Dioxide 30 H (19-29) mEq/L BUN 22 (8-26) mg/dL Creatinine 0.86 (0.72-1.25) mg/dL Glucose 181 H (70-99) mg/dL Calcium 8.5 L (8.6-10.8) mg/dL All other labs normal. Consult Discharge Plan - Plan Referrals: Bulmaro Negro MD [Primary Care Provider] - Augustine Ya MD [Partnered Physician] - 07/17/17 10:00 am
--- NOTE | 2017-07-10 21:22 | Venous Imaging Report ---
LE Venous Duplex Patient Name:Anders Jimenez Order Number:[id number] Procedure Date:07/10/2017 Date:7Age:71 yrs Gender:Male Location:[facility] Room #: 2A16 Nurse Charge Rn:Franc Richardson RN, RDCS Referring MD:Nuno Marie DO internet e commerce specialist:Bulmaro Negro MD Reading MD:John Almodovar MD Primary Indications:Swelling of limb Secondary Indications: Risk Factors Yes/No Hypertension Yes Diabetes Yes Smoker Previous No Anticoagulants Yes Previous Vascular Surgery Yes Hx of DVT No Recent Surgery No Impressions: Normal right lower extremity deep and superficial venous exam. Normal left lower extremity deep venous exam. The left greater saphenous vein has been previously ablated. Recommendations: Test completed on 07/10/2017 at 11:50:00 am. Findings Venous Duplex Results: Right: Venous imaging of the lower extremity reveals full patency and normal vessel compressibility of the right distal iliac, right common femoral, right superficial femoral, right popliteal, right posterior tibial, right peroneal, right great saphenous and right lesser saphenous. Doppler signals in the evaluated veins were normal. Left: Venous imaging of the lower extremity reveals full patency and normal vessel compressibility of the left distal iliac, left common femoral, left superficial femoral, left popliteal, left posterior tibial, left peroneal and left lesser saphenous. Doppler signals in the evaluated veins were normal. The left great saphenous demonstrates an incompressible vein. Flow was absent and it did not augment. It has been ablated. Prior Study: No change compared to prior study dated: 01/14/2017. Lower Extremity Venous Duplex Side Vein Compress Spontaneous Flow Augment Diameter (cm) Depth (cm) Right Distal Iliac Normal Yes Phasic Yes Right Common Femoral Normal Yes Phasic Yes Right Superficial Femoral Normal Yes Phasic Yes Right Popliteal Normal Yes Phasic Yes Right Posterior Tibial Normal Yes Phasic Yes Right Peroneal Normal Yes Phasic Yes Right Great Saphenous Normal Yes Phasic Yes Right Lesser Saphenous Normal Yes Phasic Yes Left Distal Iliac Normal Yes Phasic Yes Left Common Femoral Normal Yes Phasic Yes Left Superficial Femoral Normal Yes Phasic Yes Left Popliteal Normal Yes Phasic Yes Left Posterior Tibial Normal Yes Phasic Yes Left Peroneal Normal Yes Phasic Yes Left Great Saphenous None no Absent no Left Lesser Saphenous Normal Yes Phasic Yes Updated by John Almodovar MD on 07/10/2017 9:15:27 PM electronically signed on 07/10/2017 9:15:42 PM with status of Final
[2017-07-10] MEDS: Carbidopa/Levodopa 25/100 TABLET PO SCH (21:43)
[2017-07-10 23:58] LABS: Acinetobacter baumannii by PCR Not Detected (Not Detect); Enterococcus by PCR Not Detected (Not Detect); Escherichia coli by PCR Not Detected (Not Detect); Klebsiella oxytoca by PCR Not Detected (Not Detect); Klebsiella pneumoniae by PCR Not Detected (Not Detect); Staphylococcus aureus by PCR Not Detected (Not Detect); Streptococcus agalactiae(B)PCR Not Detected (Not Detect); Streptococcus by PCR Not Detected (Not Detect); Streptococcus pneumoniae PCR Not Detected (Not Detect); Streptococcus pyogenes (A) PCR Not Detected (Not Detect); blaKPC Carbapenem-Resist Gene Not Detected (Not Detect); mecA Methicillin-Resist Gene Not Detected (Not Detect); vanA/B Vancomycin-Resist Genes Not Detected (Not Detect)
[2017-07-10 23:59] LABS: Candida albicans by PCR Not Detected (Not Detect); Candida glabrata by PCR Not Detected (Not Detect); Candida krusei by PCR Not Detected (Not Detect); Candida parapsilosis by PCR Not Detected (Not Detect); Candida tropicalis by PCR Not Detected (Not Detect); Pseudomonas aeruginosa by PCR Not Detected (Not Detect); Serratia marcescens by PCR Not Detected (Not Detect)
[2017-07-11] MEDS: traMADol 50 MG TABLET PO PRN ×4 (03:49→21:03)
[2017-07-11 04:14] LABS: Basophils % 0.4 %; Eosinophils # 0.1 K/mcL (0.0-0.6); Eosinophils % 1.5 %; Hematocrit 36.2 % (37.5-50.1); Hemoglobin 10.9 g/dL (12.9-16.9); Immature Granulocytes % 0.4 % (0-4); Lymphocytes # 0.9 K/mcL (0.6-4.6); Lymphocytes % 11.9 %; Mean Corpuscular HGB Conc 30.1 g/dL (31.6-35.5); Mean Corpuscular Hemoglobin 26.7 pg (28.0-33.3); Mean Corpuscular Volume 88.5 fL (83.0-100.0); Mean Platelet Volume 10.7 fL (9.4-12.4); Monocytes # 0.7 K/mcL (0.0-1.3); Platelet Count 173 K/mcL (140-400); Red Blood Count 4.09 M/mcL (4.19-5.50); Red Cell Distribution Width 14.9 % (11.5-14.5); Segmented Neutrophils % 75.8 %
[2017-07-11 04:21] LABS: Neutrophils # 5.5 K/mcL (1.6-8.9)
[2017-07-11 04:26] LABS: BUN/Creatinine Ratio 21 (6-26); Blood Urea Nitrogen 17 mg/dL (8-26); Calcium 8.7 mg/dL (8.6-10.8); Carbon Dioxide 31 mEq/L (19-29); Chloride 102 mEq/L (98-109); Glucose 142 mg/dL (70-99); Osmolality,Calculated 288 (280-300); Potassium 3.9 mEq/L (3.5-4.5); Sodium 137 mEq/L (136-145); eGFR For African Americans > 60 (> 60); eGFR For Non-African Americans > 60 (> 60)
[2017-07-11 04:54] LABS: Platelet Estimate Normal (Normal)
[2017-07-11] MEDS: Cefepime HCl 2,000 MG in D5% in Water (Mini-Bag+) 100 ML IVPB SCH ×2 (06:18→17:12)
[2017-07-11] MEDS: Insulin LISPRO 300 UNITS/3 ML VIAL SQ SCH ×4 (08:54→21:44)
[2017-07-11] MEDS: Lisinopril 20 MG TABLET PO SCH (08:54)
[2017-07-11] MEDS: *HR* Rivaroxaban 10 MG TABLET PO SCH (08:55)
[2017-07-11] MEDS: Furosemide 40 MG TABLET PO SCH (08:55)
--- NOTE | 2017-07-11 09:02 | Urology Progress Note ---
Date of Encounter: 07/11/17 Time of Encounter: 09:01 - Assessment and Plan (1) UTI (urinary tract infection) Current Visit: Yes Status: Acute Assessment and plan: Proteus urinary tract infection. 1. Continue current indwelling catheter. 2. I will check a KUB today. 3. Appreciate internal medicine support. Qualifiers: Urinary tract infection type: catheter-associated UTI Indwelling urinary catheter type: indwelling urethral catheter Encounter type: initial encounter Qualified Code(s): T83.511A - Infection and inflammatory reaction due to indwelling urethral catheter, initial encounter; N39.0 - Urinary tract infection , site not specified Progress Note Narrative: 71-year-old gentleman with an indwelling catheter and a urinary tract infection. He is growing out Proteus. He says he is feeling well. Objective Initial Vital Signs Temp Pulse Resp BP Pulse Ox 97.7 F 122 20 120/67 87 07/09/17 19:00 07/09/17 19:00 07/09/17 19:00 07/09/17 19:00 07/09/17 19:00 - General physical appearance Present: well developed, well nourished, no distress - Respiratory Present: normal respiratory effort - Abdomen Present: soft - Genitourinary Urine Appearance: Present: Clear - Labs 07/11/17 03:23 07/11/17 03:23 Diabetes panel 07/11/17 Range/Units 03:23 Sodium 137 (136-145) mEq/L Potassium 3.9 (3.5-4.5) mEq/L Chloride 102 (98-109) mEq/L Carbon Dioxide 31 H (19-29) mEq/L BUN 17 (8-26) mg/dL Creatinine 0.80 (0.72-1.25) mg/dL Glucose 142 H (70-99) mg/dL Calcium 8.7 (8.6-10.8) mg/dL Calcium panel 07/11/17 Range/Units 03:23 Calcium 8.7 (8.6-10.8) mg/dL Pituitary panel 07/11/17 Range/Units 03:23 Sodium 137 (136-145) mEq/L Potassium 3.9 (3.5-4.5) mEq/L Chloride 102 (98-109) mEq/L Carbon Dioxide 31 H (19-29) mEq/L BUN 17 (8-26) mg/dL Creatinine 0.80 (0.72-1.25) mg/dL Glucose 142 H (70-99) mg/dL Calcium 8.7 (8.6-10.8) mg/dL Adrenal panel 07/11/17 Range/Units 03:23 Sodium 137 (136-145) mEq/L Potassium 3.9 (3.5-4.5) mEq/L Chloride 102 (98-109) mEq/L Carbon Dioxide 31 H (19-29) mEq/L BUN 17 (8-26) mg/dL Creatinine 0.80 (0.72-1.25) mg/dL Glucose 142 H (70-99) mg/dL Calcium 8.7 (8.6-10.8) mg/dL Consult Discharge Plan - Plan Referrals: Bulmaro Negro MD [Primary Care Provider] - Augustine Ya MD [Partnered Physician] - 07/17/17 10:00 am
[2017-07-11 09:12] LABS: Acinetobacter baumannii by PCR Not Detected (Not Detect); Enterococcus by PCR Not Detected (Not Detect); Escherichia coli by PCR Not Detected (Not Detect); Klebsiella oxytoca by PCR Not Detected (Not Detect); Klebsiella pneumoniae by PCR Not Detected (Not Detect); Staphylococcus aureus by PCR Not Detected (Not Detect); Streptococcus agalactiae(B)PCR Not Detected (Not Detect); Streptococcus by PCR Not Detected (Not Detect); Streptococcus pneumoniae PCR Not Detected (Not Detect); Streptococcus pyogenes (A) PCR Not Detected (Not Detect); blaKPC Carbapenem-Resist Gene Not Detected (Not Detect)
[2017-07-11 09:13] LABS: Candida albicans by PCR Not Detected (Not Detect); Candida glabrata by PCR Not Detected (Not Detect); Candida krusei by PCR Not Detected (Not Detect); Candida parapsilosis by PCR Not Detected (Not Detect); Candida tropicalis by PCR Not Detected (Not Detect); Pseudomonas aeruginosa by PCR Not Detected (Not Detect); Serratia marcescens by PCR Not Detected (Not Detect)
--- NOTE | 2017-07-11 10:46 | Internal Med Progress Note ---
<Nuno Marie - Last Filed: 07/11/17 10:37> Date of Encounter: 07/11/17 Time of Encounter: 10:37 - Assessment and plan (1) Sepsis Current Visit: Yes Status: Acute Assessment and plan: upon admission, WBC 20.4, HR 122 lactic acid 1.5 source of infection likely secondary to UTI, chronic tomlinson catheter patient does have positive urine cultures in the past that grew proteus mirabilis, enterobacter cloacae, providecia stuarti, enterococcus faecalis. current blood culture and urine culture growing proteus species, sensitive to cefepime in the past. KUB showed no acute findings. Plan: repeat blood and urine cultures. continue cefepime appreciate urology recs. Qualifiers: Sepsis type: sepsis due to unspecified organism Qualified Code(s): A41.9 - Sepsis, unspecified organism (2) UTI (urinary tract infection) Current Visit: Yes Status: Acute Assessment and plan: plan as above. Qualifiers: Urinary tract infection type: catheter-associated UTI Indwelling urinary catheter type: indwelling urethral catheter Encounter type: initial encounter Qualified Code(s): T83.511A - Infection and inflammatory reaction due to indwelling urethral catheter, initial encounter; N39.0 - Urinary tract infection , site not specified (3) SUNI (acute kidney injury) Current Visit: Yes Status: Resolved Assessment and plan: currently resolved. continue to monitor. likely pre-renal etiology due to sepsis. (4) Hypomagnesemia Current Visit: Yes Status: Resolved Assessment and plan: resolved (5) Diastolic CHF Current Visit: Yes Status: Chronic Assessment and plan: last echo 10/25/16 showed LVEF 65% moderate diastolic dysfunction of left ventricle, normal RV size and function, no significant valvular dysfunction, no pulmonary hypertension. Plan: resumed home dose of lasix, as SUNI has resolved. strict I/O, daily weight Qualifiers: Congestive heart failure chronicity: chronic Qualified Code(s): I50.32 - Chronic diastolic (congestive) heart failure (6) A-fib Current Visit: Yes Status: Chronic Assessment and plan: continue beta anastacio and xarelto. Qualifiers: Atrial fibrillation type: chronic Qualified Code(s): I48.2 - Chronic atrial fibrillation (7) Right hip pain Current Visit: Yes Status: Chronic Assessment and plan: chronic problem. Xray of right hip shows chronic degenerative changes. Plan: will consult ortho on Thursday. (8) DVT prophylaxis Current Visit: No Status: Acute Assessment and plan: xarelto - Subjective Interval history: 71 year old male evaluated at bedside. patient was evaluated by PT/OT earlier today. He was sitting up in the chair upon my examination. patient denies nausea , vomiting, diarrhea, fever, chills, chest pain, and shortness of breath. he denies any further complaints today. - Constitutional Vitals: Temp Pulse Resp BP Pulse Ox 98.1 F 78 18 131/87 98 07/11/17 10:14 07/11/17 10:14 07/11/17 10:14 07/11/17 10:14 07/11/17 10:14 General appearance: Present: cooperative, A&O X 3, no acute distress, answers questions appropriately - Head Head exam: Present: atraumatic, normocephalic Additional comments: morbidly obese - Neck Neck exam general surgery: Present: supple, trachea midline - Respiratory Respiratory exam: Present: CTAB - Cardiovascular Cardiovascular exam: Present: RRR, +S1, +S2 - GI/Abdominal GI/Abdominal exam: Present: distended, firm, normal bowel sounds. Absent: tenderness - Additional comments: chronic indwelling fole catheter with some blood dripping. patient also has enlarged testicles, and he says the swelling in his testicles go up and down. - Extremities Exam Additional comments: bilateral lower extremity non pitting edema. bilteral lower extremity venous stasis and stasis dermatitis up to right below the knee area. toes appear swollen as well. - Neurological Exam Neurological exam: Present: alert, oriented X3, no focal deficits - Psychiatric Psychiatric exam: Present: normal affect, normal mood Internal Medicine: Result - Labs CBC & Chem 7: 07/11/17 03:23 07/11/17 03:23 Labs: Short CBC 07/11/17 Range/Units 03:23 WBC 7.2 D (4.3-11.1) K/mcL Hgb 10.9 L (12.9-16.9) g/dL Hct 36.2 L (37.5-50.1) % Plt Count 173 (140-400) K/mcL Neutrophils # 5.5 (1.6-8.9) K/mcL BMP 07/11/17 03:23 Sodium 137 Potassium 3.9 Chloride 102 Carbon Dioxide 31 H BUN 17 Creatinine 0.80 Glucose 142 H Calcium 8.7 - ABG Interpretation ABG results: PT/INR, D-dimer PT 14.2 Seconds (9.4-12.1) H 07/09/17 19:14 Consult Discharge Plan - Plan Referrals: Bulmaro Negro MD [Primary Care Provider] - Augustine Ya MD [Partnered Physician] - 07/17/17 10:00 am <Luis Quintero - Last Filed: 07/11/17 15:24> Date of Encounter: 07/11/17 - Constitutional Vitals: Temp Pulse Resp BP Pulse Ox 98.1 F 78 18 131/87 98 07/11/17 10:14 07/11/17 10:14 07/11/17 10:14 07/11/17 10:14 07/11/17 10:14 Internal Medicine: Result - Labs CBC & Chem 7: 07/11/17 03:23 07/11/17 03:23 Labs: Short CBC 07/11/17 Range/Units 03:23 WBC 7.2 D (4.3-11.1) K/mcL Hgb 10.9 L (12.9-16.9) g/dL Hct 36.2 L (37.5-50.1) % Plt Count 173 (140-400) K/mcL Neutrophils # 5.5 (1.6-8.9) K/mcL BMP 07/11/17 03:23 Sodium 137 Potassium 3.9 Chloride 102 Carbon Dioxide 31 H BUN 17 Creatinine 0.80 Glucose 142 H Calcium 8.7 - ABG Interpretation ABG results: PT/INR, D-dimer PT 14.2 Seconds (9.4-12.1) H 07/09/17 19:14 - Impressions Impressions KUB X-Ray 07/11/17 09:02 IMPRESSION: No acute findings. D/ / Arabella Spear MD / Arabella Spear MD Interpreting Provider: Arabella Spear MD - Attending Attestation I examined this patient and my medical decision-making was reviewed with the Resident Physician. I agree with the documented findings, disposition and treatment plan as described except to the extent set forth below.
[2017-07-11] MEDS: Carbidopa/Levodopa 25/100 TABLET PO SCH (21:03)
[2017-07-12] MEDS: traMADol 50 MG TABLET PO PRN ×2 (03:37→18:36)
[2017-07-12 04:22] LABS: Basophils % 0.5 %; Eosinophils # 0.2 K/mcL (0.0-0.6); Eosinophils % 4.3 %; Hematocrit 34.8 % (37.5-50.1); Hemoglobin 10.4 g/dL (12.9-16.9); Immature Granulocytes % 0.4 % (0-4); Lymphocytes % 15.1 %; Mean Corpuscular HGB Conc 29.9 g/dL (31.6-35.5); Mean Corpuscular Hemoglobin 26.3 pg (28.0-33.3); Mean Corpuscular Volume 88.1 fL (83.0-100.0); Mean Platelet Volume 10.6 fL (9.4-12.4); Monocytes # 0.8 K/mcL (0.0-1.3); Monocytes % 14.2 %; Neutrophils # 3.7 K/mcL (1.6-8.9); Platelet Count 171 K/mcL (140-400); Red Blood Count 3.95 M/mcL (4.19-5.50); Red Cell Distribution Width 14.8 % (11.5-14.5); Segmented Neutrophils % 65.5 %
[2017-07-12 04:26] LABS: Lymphocytes # 0.9 K/mcL (0.6-4.6)
[2017-07-12 04:32] LABS: BUN/Creatinine Ratio 21 (6-26); Blood Urea Nitrogen 17 mg/dL (8-26); Calcium 8.4 mg/dL (8.6-10.8); Carbon Dioxide 30 mEq/L (19-29); Chloride 101 mEq/L (98-109); Glucose 125 mg/dL (70-99); Osmolality,Calculated 287 (280-300); Sodium 137 mEq/L (136-145); eGFR For African Americans > 60 (> 60); eGFR For Non-African Americans > 60 (> 60)
[2017-07-12 04:57] LABS: Large Platelets Present (Not Present); Platelet Estimate Normal (Normal)
[2017-07-12] MEDS: Cefepime HCl 2,000 MG in D5% in Water (Mini-Bag+) 100 ML IVPB SCH ×2 (06:16→16:26)
[2017-07-12] MEDS: *HR* Rivaroxaban 10 MG TABLET PO SCH (08:48)
[2017-07-12] MEDS: Furosemide 40 MG TABLET PO SCH (08:48)
[2017-07-12] MEDS: Insulin LISPRO 300 UNITS/3 ML VIAL SQ SCH ×4 (08:48→21:21)
[2017-07-12] MEDS: Lisinopril 20 MG TABLET PO SCH (08:48)
--- NOTE | 2017-07-12 14:53 | Internal Med Progress Note ---
Date of Encounter: 07/12/17 Time of Encounter: 14:49 - Assessment and plan (1) Sepsis Current Visit: Yes Status: Acute Assessment and plan: upon admission, WBC 20.4, HR 122 lactic acid 1.5 source of infection likely secondary to UTI, chronic tomlinson catheter patient does have positive urine cultures in the past that grew proteus mirabilis, enterobacter cloacae, providecia stuarti, enterococcus faecalis. current blood culture and urine culture growing proteus species, sensitive to cefepime in the past. KUB showed no acute findings. Plan: repeat blood and urine cultures. continue cefepime appreciate urology recs. 07/12/2017. Proteus mirabilis bacteremia likely source urinary tract. Blood culture positive for Proteus mirabilis 2 Urine culture positive for Proteus mirabilis. Resistant to quinolones and tigecycline. Patient is presently on IV cefepime (daiy 4) Plan: Repeat blood cultures sent and are waiting for results. Meantime we will continue with IV cefepime. Recommendations from urology appreciated Likely placement that ECF/SNF. Awaiting orthopedic review regarding her right hip pain Qualifiers: Sepsis type: sepsis due to unspecified organism Qualified Code(s): A41.9 - Sepsis, unspecified organism (2) SUNI (acute kidney injury) Current Visit: Yes Status: Resolved Assessment and plan: currently resolved. continue to monitor. likely pre-renal etiology due to sepsis. (3) UTI (urinary tract infection) Current Visit: Yes Status: Acute Assessment and plan: See above Qualifiers: Urinary tract infection type: catheter-associated UTI Indwelling urinary catheter type: indwelling urethral catheter Encounter type: subsequent encounter Qualified Code(s): T83.511D - Infection and inflammatory reaction due to indwelling urethral catheter, subsequent encounter; N39.0 - Urinary tract infection, site not specified (4) Right hip pain Current Visit: Yes Status: Chronic Assessment and plan: chronic problem. Xray of right hip shows chronic degenerative changes. Plan: will consult ortho on Thursday. - Subjective Interval history: Seen and examined. Chart reviewed. Patient is comfortably lying in bed and playing games on iPad. Patient denies chest pain, shortness of breath, abdominal pain, nausea, vomiting , diarrhea and dizziness. - Constitutional Vitals: Temp Pulse Resp BP Pulse Ox 98.3 F 92 16 99/58 94 07/12/17 10:56 07/12/17 10:56 07/12/17 10:56 07/12/17 10:56 07/12/17 10:56 General appearance: Present: cooperative, A&O X 3, no acute distress, answers questions appropriately Internal Medicine: Result - Labs CBC & Chem 7: 07/12/17 04:02 07/12/17 04:02 Labs: Short CBC 07/12/17 Range/Units 04:02 WBC 5.6 (4.3-11.1) K/mcL Hgb 10.4 L (12.9-16.9) g/dL Hct 34.8 L (37.5-50.1) % Plt Count 171 (140-400) K/mcL Neutrophils # 3.7 (1.6-8.9) K/mcL BMP 07/12/17 04:02 Sodium 137 Potassium 4.0 Chloride 101 Carbon Dioxide 30 H BUN 17 Creatinine 0.80 Glucose 125 H Calcium 8.4 L - ABG Interpretation ABG results: PT/INR, D-dimer PT 14.2 Seconds (9.4-12.1) H 07/09/17 19:14 Consult Discharge Plan - Plan Referrals: Bulmaro Negro MD [Primary Care Provider] - Augustine Ya MD [Partnered Physician] - 07/17/17 10:00 am
[2017-07-12] MEDS: Carbidopa/Levodopa 25/100 TABLET PO SCH (20:32)
[2017-07-13] MEDS: traMADol 50 MG TABLET PO PRN ×3 (03:19→22:31)
[2017-07-13 04:16] LABS: Alanine Aminotransferase 9 Units/L (0-55); Albumin 2.7 g/dL (3.5-5.0); Albumin/Globulin Ratio 0.7 (1.1-2.2); Alkaline Phosphatase 104 Units/L (38-126); Aspartate Amino Transferase 24 Units/L (5-34); BUN/Creatinine Ratio 19 (6-26); Bilirubin,Total 0.3 mg/dL (0.2-1.2); Blood Urea Nitrogen 15 mg/dL (8-26); Calcium 9.1 mg/dL (8.6-10.8); Carbon Dioxide 36 mEq/L (19-29); Chloride 97 mEq/L (98-109); Globulin 3.8 g/dL (2.4-3.5); Glucose 139 mg/dL (70-99); Osmolality,Calculated 293 (280-300); Potassium 4.1 mEq/L (3.5-4.5); Sodium 140 mEq/L (136-145); Total Protein 6.5 g/dL (6.0-8.3); eGFR For African Americans > 60 (> 60); eGFR For Non-African Americans > 60 (> 60)
[2017-07-13 04:32] LABS: Basophils # 0.1 K/mcL (0.0-0.2); Basophils % 0.9 %; Eosinophils # 0.2 K/mcL (0.0-0.6); Eosinophils % 4.2 %; Immature Granulocytes % 0.2 % (0-4); Lymphocytes # 1.2 K/mcL (0.6-4.6); Lymphocytes % 21.1 %; Mean Corpuscular HGB Conc 30.6 g/dL (31.6-35.5); Mean Corpuscular Hemoglobin 26.8 pg (28.0-33.3); Mean Corpuscular Volume 87.6 fL (83.0-100.0); Mean Platelet Volume 11.2 fL (9.4-12.4); Monocytes % 18.4 %; Platelet Count 213 K/mcL (140-400); Red Blood Count 4.11 M/mcL (4.19-5.50); Red Cell Distribution Width 14.6 % (11.5-14.5); Segmented Neutrophils % 55.2 %
[2017-07-13 04:39] LABS: Monocytes # 1.1 K/mcL (0.0-1.3); Neutrophils # 3.2 K/mcL (1.6-8.9)
[2017-07-13 05:26] LABS: Platelet Estimate Normal (Normal)
[2017-07-13] MEDS: Cefepime HCl 2,000 MG in D5% in Water (Mini-Bag+) 100 ML IVPB SCH ×2 (05:39→17:35)
[2017-07-13] MEDS: Furosemide 40 MG TABLET PO SCH (08:28)
[2017-07-13] MEDS: Lisinopril 20 MG TABLET PO SCH (08:28)
[2017-07-13] MEDS: *HR* Rivaroxaban 10 MG TABLET PO SCH (08:29)
[2017-07-13] MEDS: Insulin LISPRO 300 UNITS/3 ML VIAL SQ SCH ×4 (08:30→21:48)
--- NOTE | 2017-07-13 09:52 | Discharge Summary ---
<Nuno Marie - Last Filed: 07/13/17 14:39> Date of Encounter: 07/13/17 Time of Encounter: 09:44 - Discharge Diagnosis (1) Sepsis Priority: Primary Status: Acute Qualifiers: Sepsis type: sepsis due to unspecified organism Qualified Code(s): A41.9 - Sepsis, unspecified organism (2) UTI (urinary tract infection) Priority: Secondary Status: Acute Qualifiers: Urinary tract infection type: catheter-associated UTI Indwelling urinary catheter type: indwelling urethral catheter Encounter type: initial encounter Qualified Code(s): T83.511A - Infection and inflammatory reaction due to indwelling urethral catheter, initial encounter; N39.0 - Urinary tract infection , site not specified (3) SUNI (acute kidney injury) Priority: Secondary Status: Resolved (4) Hypomagnesemia Priority: Secondary Status: Resolved (5) Diastolic CHF Priority: Secondary Status: Chronic Qualifiers: Congestive heart failure chronicity: chronic Qualified Code(s): I50.32 - Chronic diastolic (congestive) heart failure (6) A-fib Priority: Secondary Status: Chronic Qualifiers: Atrial fibrillation type: chronic Qualified Code(s): I48.2 - Chronic atrial fibrillation (7) Right hip pain Priority: Secondary Status: Chronic (8) DVT prophylaxis Priority: Secondary Status: Acute - Discharge Medications Prescriptions: Cefepime HCl [Maxipime] 2,000 mg IVPB Q12HR #28 vial Home Medications: Labetalol HCl 300 mg PO TID 10/25/16 [History] Lisinopril [Zestril] 40 mg PO DAILY 10/25/16 [History] Pantoprazole Sodium [Protonix] 40 mg PO DAILY 10/25/16 [History] Potassium Chloride [K-Tab ER] 20 meq PO DAILY 10/25/16 [History] Rivaroxaban [Xarelto] 20 mg PO DAILY 10/25/16 [History] SitaGLIPtin [Januvia] 100 mg PO DAILY 10/25/16 [History] Tramadol HCl [Ultram] 50 mg PO TID PRN 10/25/16 [History] Furosemide [Lasix] 40 mg PO DAILY 01/12/17 [History] Carbidopa/Levodopa [Carbidopa-Levodopa 25-100 Tab] 1 tab PO HS 07/09/17 [History ] Cholecalciferol (Vitamin D3) [Vitamin D3] 5,000 unit PO DAILY 07/09/17 [History] Metformin HCl [Metformin HCl ER] 1,000 mg PO BID 07/09/17 [History] Cefepime HCl [Maxipime] 2,000 mg IVPB Q12HR #28 vial 07/13/17 [Rx] Polyethylene Glycol 3350 [MiraLAX] 17 gm PO DAILY 07/13/17 [Rx] Allergies/Adverse Reactions: 3 Allergy/AdvReac Type Severity Reaction Status Date / Time No Known Allergies Allergy Verified 09/05/15 12:17 Date of admission: 07/10/17 20:10 Primary care physician: Bulmaro Negro MD Consults: 07/11/17 13:22 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 - Patient Status Disposition: Transfer SNF Condition: Fair Functional capacity at discharge: bed bound Overall status at discharge: patient is not back to baseline - Discharge Instructions Instructions: Urinary Tract Infection in Men (DC), Chronic Obstructive Pulmonary Disease (DC) Follow Up With: Bulmaro Negro MD [Primary Care Provider] - Augustine Ya MD [Partnered Physician] - 07/17/17 10:00 am Heidi Sanchez CNP [Advanced Practice Nurse] - 08/03/17 8:30 am () Ian Ash MD [Partnered Physician] - (Web request 07/13/17) Additional Instructions: continue antibiotics as prescribed at extended care facility. activities as per PT/OT follow up with primary care doctor within one week of discharge follow up with orthopedic surgery, infectious disease, and urology. please return to emergency department if you develop fever, chills, chest pain, shortness of breath. - Diet and Activity Activity: as per physical therapy Diet: diabetic diet, low fat, low cholesterol Interval History: Plan: continue antibiotics as prescribed at extended care facility. activities as per PT/OT follow up with primary care doctor within one week of discharge follow up with orthopedic surgery, infectious disease, and urology. please return to emergency department if you develop fever, chills, chest pain, shortness of breath. Hospital course: Mr. Jimenez is a 71 year old male with PMHx of DM, HTN, GERD< chronic Afib (on xarelto), dCHF, chronic indwelling urinary catheter (last changed by Dr. Goldberg on 07/03/17). Patient arrived to [facility] on 07/09/17 and was admitted for sepsis secondary to UTI and bacteremia. urine and blood cultures were obtained, and patient was started on Cefepime based on past urine cultures. Both urine and blood cultures grew proteus mirabillis, and his second set of blood cultures were negative. urology was consulted, and they recommended continuation of tomlinson catheter and antibiotic treatment. Patient initially had an SUNI likely secondary to Sepsis, which eventually resolved. He was evaluated by PT/OT and was recommended for SNF upon discharge. Patient complained of right hip pain during his stay and xray of right hip showed degenerative changes. He was set up for appointment with orthopedic surgery. Patient was continued on cefepime and monitored during his hospitalization. His second set of blood cultures were negative, and patient was discharged to [facility]. He was stable during the course of his hospital stay and remained stable upon discharge. Plan: continue antibiotics as prescribed at extended care facility. activities as per PT/OT follow up with primary care doctor within one week of discharge follow up with orthopedic surgery, infectious disease, and urology. please return to emergency department if you develop fever, chills, chest pain, shortness of breath. - Time Spent with Patient Total time spent providing and/or coordinating discharge services: - Constitutional Vitals: Temp Pulse Resp BP Pulse Ox 97.6 F 79 20 138/78 93 07/13/17 08:22 07/13/17 08:22 07/13/17 08:22 07/13/17 08:22 07/13/17 08:22 General appearance: Present: cooperative, A&O X 3, no acute distress, answers questions appropriately - Head Head exam: Present: atraumatic, normocephalic - Neck Neck exam general surgery: Present: supple, trachea midline - Respiratory Respiratory exam: Present: CTAB - Cardiovascular Cardiovascular exam: Present: irregular rhythm - GI/Abdominal GI/Abdominal exam: Present: normal bowel sounds, soft. Absent: distended, tenderness - Extremities Exam Additional comments: bilateral lower extremity non pitting edema, severe venous stasis and dry skin, skin darkening present. - Neurological Exam Neurological exam: Present: alert, oriented X3, no focal deficits - Psychiatric Psychiatric exam: Present: normal affect, normal mood <Ingrid,Lusi P - Last Filed: 07/13/17 16:35> Date of Encounter: 07/13/17 - Discharge Diagnosis (1) Sepsis Status: Acute Qualifiers: Sepsis type: sepsis due to unspecified organism Qualified Code(s): A41.9 - Sepsis, unspecified organism (2) SUNI (acute kidney injury) Status: Resolved (3) UTI (urinary tract infection) Status: Acute Qualifiers: Urinary tract infection type: catheter-associated UTI Indwelling urinary catheter type: indwelling urethral catheter Encounter type: subsequent encounter Qualified Code(s): T83.511D - Infection and inflammatory reaction due to indwelling urethral catheter, subsequent encounter; N39.0 - Urinary tract infection, site not specified (4) Right hip pain Status: Chronic Date of admission: 07/10/17 20:10 Primary care physician: Bulmaro Negro MD Consults: 07/11/17 13:22 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 Hospital course: Mr. Jimenez is a 71 year old male - Time Spent with Patient Total time spent providing and/or coordinating discharge services: - Constitutional Vitals: Temp Pulse Resp BP Pulse Ox 97.6 F 79 20 138/78 93 07/13/17 08:22 07/13/17 08:22 07/13/17 08:22 07/13/17 08:22 07/13/17 08:22 - Attending Attestation I examined this patient and my medical decision-making was reviewed with the Resident Physician. I agree with the documented findings, disposition and treatment plan as described except to the extent set forth below. Follow-up with infectious diseases. Follow-up with urology. Follow-up with PCP in 1-2 weeks.
--- NOTE | 2017-07-13 10:07 | Physician Discharge Referral ---
<Nuno Marie - Last Filed: 07/13/17 10:05> [facility] Referral Info Transfer To: ECF Provider in Charge after Transfer: PCP Institutional Level of Care: Skilled - Diagnosis (1) Sepsis Priority: Primary Status: Acute (2) UTI (urinary tract infection) Priority: Secondary Status: Acute (3) SUNI (acute kidney injury) Priority: Secondary Status: Resolved (4) Hypomagnesemia Priority: Secondary Status: Resolved (5) Diastolic CHF Priority: Secondary Status: Chronic (6) A-fib Priority: Secondary Status: Chronic (7) Right hip pain Priority: Secondary Status: Chronic (8) DVT prophylaxis Priority: Secondary Status: Acute - Transfer Medications Prescriptions: Cefepime HCl [Maxipime] 2,000 mg IVPB Q12HR #28 vial Home Medications: Labetalol HCl 300 mg PO TID 10/25/16 [History] Lisinopril [Zestril] 40 mg PO DAILY 10/25/16 [History] Pantoprazole Sodium [Protonix] 40 mg PO DAILY 10/25/16 [History] Potassium Chloride [K-Tab ER] 20 meq PO DAILY 10/25/16 [History] Rivaroxaban [Xarelto] 20 mg PO DAILY 10/25/16 [History] SitaGLIPtin [Januvia] 100 mg PO DAILY 10/25/16 [History] Tramadol HCl [Ultram] 50 mg PO TID PRN 10/25/16 [History] Furosemide [Lasix] 40 mg PO DAILY 01/12/17 [History] Carbidopa/Levodopa [Carbidopa-Levodopa 25-100 Tab] 1 tab PO HS 07/09/17 [History ] Cholecalciferol (Vitamin D3) [Vitamin D3] 5,000 unit PO DAILY 07/09/17 [History] Metformin HCl [Metformin HCl ER] 1,000 mg PO BID 07/09/17 [History] Cefepime HCl [Maxipime] 2,000 mg IVPB Q12HR #28 vial 07/13/17 [Rx] Polyethylene Glycol 3350 [MiraLAX] 17 gm PO DAILY 07/13/17 [Rx] Allergies/Adverse Reactions: 3 Allergy/AdvReac Type Severity Reaction Status Date / Time No Known Allergies Allergy Verified 09/05/15 12:17 - Respiratory Orders Oxygen / L per min (as needed.) Smoking Cessation: Smoking cessation has been advised. For more information, call the [place] Tobacco Quit Line at 6-860-CZBBNOW. - Ancillary Orders May use pressure relief devices daily prn - Advance Directives Code Status: Full Code - Mobility Orders Chair - Rehabiliation Orders Rehab Potential: Fair Rehab Orders: ROM Exercises, Evaluation for Physical Therapy, Evaluation for Occupational Therapy - Treatments Skin tear care topically daily PRN per policy - Diet Orders Cardiac (diabetic, low fat diet.) CERTIFICATION: I certify that the transfer of the above named patient to an Extended Care Facility is necessary for the continuing treatment of the diagnosis listed. The above information is true and accurate reflection of patient's current condition. Confidential - Redisclosure prohibited without a patient's written consent. <Luis Quintero P - Last Filed: 07/13/17 16:36> - Diagnosis (1) Sepsis Status: Acute (2) SUNI (acute kidney injury) Status: Resolved (3) UTI (urinary tract infection) Status: Acute (4) Right hip pain Status: Chronic - Respiratory Orders Smoking Cessation: Smoking cessation has been advised. For more information, call the [place] Tobacco Quit Line at 3-561-YHALNOW. CERTIFICATION: I certify that the transfer of the above named patient to an Extended Care Facility is necessary for the continuing treatment of the diagnosis listed. The above information is true and accurate reflection of patient's current condition. Confidential - Redisclosure prohibited without a patient's written consent.
[2017-07-13] MEDS: Acetaminophen 325 MG TABLET PO PRN (21:05)
[2017-07-13] MEDS: Carbidopa/Levodopa 25/100 TABLET PO SCH (21:05)
[2017-07-14 05:12] LABS: Basophils # 0.1 K/mcL (0.0-0.2); Basophils % 0.8 %; Eosinophils # 0.3 K/mcL (0.0-0.6); Eosinophils % 4.8 %; Hemoglobin 11.4 g/dL (12.9-16.9); Immature Granulocytes % 0.6 % (0-4); Lymphocytes # 1.5 K/mcL (0.6-4.6); Lymphocytes % 21.2 %; Mean Corpuscular HGB Conc 30.8 g/dL (31.6-35.5); Mean Corpuscular Hemoglobin 26.7 pg (28.0-33.3); Mean Corpuscular Volume 86.7 fL (83.0-100.0); Mean Platelet Volume 10.6 fL (9.4-12.4); Monocytes # 1.2 K/mcL (0.0-1.3); Monocytes % 16.6 %; Platelet Count 232 K/mcL (140-400); Red Blood Count 4.27 M/mcL (4.19-5.50); Red Cell Distribution Width 14.5 % (11.5-14.5)
[2017-07-14] MEDS: Cefepime HCl 2,000 MG in D5% in Water (Mini-Bag+) 100 ML IVPB SCH (05:26)
[2017-07-14 05:31] LABS: Alanine Aminotransferase 19 Units/L (0-55); Albumin 2.7 g/dL (3.5-5.0); Albumin/Globulin Ratio 0.7 (1.1-2.2); Alkaline Phosphatase 118 Units/L (38-126); Aspartate Amino Transferase 27 Units/L (5-34); BUN/Creatinine Ratio 19 (6-26); Bilirubin,Total 0.3 mg/dL (0.2-1.2); Blood Urea Nitrogen 15 mg/dL (8-26); Calcium 9.4 mg/dL (8.6-10.8); Carbon Dioxide 36 mEq/L (19-29); Chloride 96 mEq/L (98-109); Globulin 3.8 g/dL (2.4-3.5); Glucose 149 mg/dL (70-99); Osmolality,Calculated 292 (280-300); Potassium 4.1 mEq/L (3.5-4.5); Sodium 139 mEq/L (136-145); Total Protein 6.5 g/dL (6.0-8.3); eGFR For African Americans > 60 (> 60); eGFR For Non-African Americans > 60 (> 60)
[2017-07-14 07:20] VITALS: BP 152/82
[2017-07-14] MEDS: Furosemide 40 MG TABLET PO SCH (09:10)
[2017-07-14] MEDS: *HR* Rivaroxaban 10 MG TABLET PO SCH (09:10)
[2017-07-14] MEDS: Lisinopril 20 MG TABLET PO SCH (09:10)
[2017-07-14] MEDS: traMADol 50 MG TABLET PO PRN (09:11)
[2017-07-14] MEDS: Insulin LISPRO 300 UNITS/3 ML VIAL SQ SCH ×2 (09:11→11:28)
== END 2017-07-14 12:44 | DRG 698 ==
LOC: 2ANU 18:58 → EMEROO 18:58 → 2ANU 22:18
PROVIDERS: ADMIT Internal Medicine; ATTEND Internal Medicine

== ENCOUNTER 2017-07-29 11:07 | Inpatient (IN) ==
[2017-07-29 11:49] LABS: Bilirubin,Urine Negative (Negative); Blood,Urine Moderate (Negative); Clarity,Urine Turbid (Clear); Color,Urine Yellow (Yellow); Glucose,Urine (UA) Normal (Normal); Ketones,Urine Negative (Negative); Leukocyte Esterase,Urine Moderate (Negative); Nitrite,Urine Negative (Negative); PH,Urine 6.5 pH Units (5.0-8.0); Protein,Urine 30 mg/dL (Neg-Trace); Specific Gravity,Urine 1.013 (1.010-1.025); Urobilinogen,Urine Normal (Normal)
[2017-07-29 11:53] LABS: Squamous Epithelial Cell,Urine Many per lpf (None-Few); WBC,Urine 50-100 per hpf (0-3)
[2017-07-29 12:02] LABS: Granular Casts,Urine Few per lpf (None Seen); Hyaline Casts,Urine Few per lpf (None-Few)
[2017-07-29 12:03] LABS: Amorphous Sediment,Urine Moderate (Few); Bacteria,Urine Moderate per hpf (None-Few); RBC,Urine 0-3 per hpf (0-3)
[2017-07-29 12:04] LABS: Mucus,Urine Moderate (Few)
[2017-07-29 12:25] LABS: Calcium 9.1 mg/dL (8.6-10.8); Potassium 4.6 mEq/L (3.5-4.5)
[2017-07-29] MEDS ORDERED: 0.9 % Sodium Chloride 1,000 ML IVC ONE (12:54)
[2017-07-29] MEDS ORDERED: *HR* HYDROcodone/Acet 5/325 mg TABLET PO ONE (14:43)
--- NOTE | 2017-07-29 15:14 | Emergency Department Note ---
Disposition Clinical Impression: Acute kidney injury UTI (urinary tract infection) Qualifiers: Urinary tract infection type: catheter-associated UTI Indwelling urinary catheter type: indwelling urethral catheter Encounter type: subsequent encounter Qualified Code(s): T83.511D - Infection and inflammatory reaction due to indwelling urethral catheter, subsequent encounter Disposition: Admitted As Inpatient Condition: Fair Time of Disposition: 15:00 Recheck wound or abnormal lab - General Chief Complaint: ED Recheck/Abnormal Lab/Rx Stated Complaint: Sent from longterm Source: patient, EMS Limitations: no limitations Nursing Notes Reviewed: Yes Vital Signs Reviewed: Yes - History of Present Illness HPI Narrative: Patient 71-year-old male coming from longterm secondary to rehabilitation treatment for sepsis and further antibiotic care. Patient was on his last day of antibiotic regimen when his labs were checked and was found to have elevations of his BUN and creatinine. Patient sent to ED for reevaluation. - Related Data Home Medications Medication Instructions Recorded Confirmed Labetalol HCl 300 mg PO 0700,1200,209910/25/16 07/29/17 Pantoprazole Sodium [Protonix] 40 mg PO QAM 10/25/16 07/29/17 Potassium Chloride [K-Tab ER] 20 meq PO QAM 10/25/16 07/29/17 Rivaroxaban [Xarelto] 20 mg PO QAM 10/25/16 07/29/17 SitaGLIPtin [Januvia] 100 mg PO QAM 10/25/16 07/29/17 Tramadol HCl [Ultram] 50 mg PO 0800,1200,199910/25/16 07/29/17 Furosemide [Lasix] 40 mg PO QAM 01/12/17 07/29/17 Carbidopa/Levodopa 1 tab PO HS 07/09/17 07/29/17 [Carbidopa-Levodopa 25-100 Tab] Cholecalciferol (Vitamin D3) 5,000 unit PO QAM 07/09/17 07/29/17 [Vitamin D3] Metformin HCl [Metformin HCl ER] 1,000 mg PO 0700,209907/09/17 07/29/17 Ammonium Lactate [Taina-Hydrolac] 1 appl TP 0900,199907/29/17 07/29/17 HYDROcodone/Acet 5/325 mg [[employer] 1 tab PO Q6H PRN 07/29/17 07/29/17 5-325 mg] Lactulose 20 gm PO 0900,1700 07/29/17 07/29/17 Nystatin POWDER [Nystop] 1 appl TP 0900,2000 07/29/17 07/29/17 Polyethylene Glycol 3350 [MiraLAX] 17 gm PO QAM 07/29/17 07/29/17 Previous Rx's Medication Instructions Recorded Cefepime HCl [Maxipime] 2,000 mg IVPB Q12HR #28 vial 07/13/17 Allergies Allergy/AdvReac Type Severity Reaction Status Date / Time No Known Allergies Allergy Verified 09/05/15 12:17 Review of Systems: Patient denies any fever, chills, nausea, vomiting, diarrhea, chest pain, shortness breath, abdominal pain, back pain. All systems ED: reviewed and negative except as stated. Review of Systems: As Per HPI Past Medical History - Past Medical History Attestation: Yes The following information was validated with the patient. Source: patient Medical history: Reports: CHF, diabetes, GERD, hypertension, venous stasis Surgical history: Reports: appendectomy, herniorrhaphy, knee replacement, orthopedic, other Psychiatric history: Reports: no psych history - Social History Smoking Status: Never smoker Smokeless Tobacco Status: No Alcohol use: Reports: none Drug use: Reports: none Physical Exam Patient is a 71-year-old male who is alert and oriented 3 in no acute distress. Patient has a Adame catheter in place. Patient speaks he has very thick oral secretions in his mouth and nurse's mouth appears very dry. - General Limitations: no limitations General appearance: alert, in no apparent distress - Head Head exam: atraumatic, normocephalic, normal inspection - Eye Eye exam: Present: normal appearance, PERRL, EOMI - ENT ENT exam: normal exam, normal oropharynx, mucous membranes dry - Neck Neck exam: Present: normal inspection, full ROM, trachea midline - Chest Chest inspection: Present: normal inspection, symmetric chest wall rise - Respiratory Respiratory exam: Present: normal lung sounds bilaterally - Cardiovascular Cardiovascular exam: Present: regular rate, normal rhythm, normal heart sounds - Abdominal Exam Abdominal exam: Present: soft, Non-Tender. Absent: tenderness, distention, guarding, rebound, rigidity - Male exam: Present: other (Adame in place) - Extremities Exam Extremities exam: Present: normal inspection, full ROM. Absent: tenderness, pedal edema Course - Reevaluation(s) Reevaluation #1: Recheck in patient's BMP and urine Time: 11:55 - Consultations Consultation #1: Patient was accepted for admission by Dr. Zhou the hospitalist Time: 15:00 Vital Signs Temperature 97.5 F L 07/29/17 11:13 Pulse Rate 99 07/29/17 11:13 Respiratory Rate 18 07/29/17 11:13 Blood Pressure 111/79 07/29/17 11:13 O2 Sat by Pulse Oximetry 90 07/29/17 11:13 Temperature 97.6 F 07/29/17 18:16 Pulse Rate 113 07/29/17 18:16 Respiratory Rate 16 07/29/17 18:16 Blood Pressure 131/86 07/29/17 18:16 O2 Sat by Pulse Oximetry 92 07/29/17 18:16 Oxygen Delivery Oxygen Delivery Room Air Recheck wound or abnormal lab - MDM Narrative Medical decision making narrative: Patient sent to the ED for concerns or increasing BUN and creatinine worrisome for acute kidney injury. Patient's lab that showed increasing his BUN and creatinine. Previous labs on discharge from previous admission showed normalized BUN and creatinine. Patient does have acute kidney injury. Patient also has UTI. Patient started on 1 g ceftriaxone, 1 L IV normal saline, and patient will be admitted to the hospital. Patient understands and accepts decision for admission. Patient is accepted for admission - Medical Records Medical records reviewed: Yes I reviewed the patient's medical records. Review patient's records from last admission which shows patient was started on cefepime for urosepsis and continued on cefepime at longterm Sensitivities for previous urine culture show sensitivity for ceftriaxone - Lab Data Lab results reviewed: Yes I reviewed the patient's lab results. Lab results narrative: Short CBC 07/29/17 Range/Units 12:02 WBC 6.5 (4.3-11.1) K/mcL Hgb 11.9 L (12.9-16.9) g/dL Hct 38.0 (37.5-50.1) % Plt Count 301 (140-400) K/mcL Neutrophils # 3.8 (1.6-8.9) K/mcL BMP 07/29/17 Range/Units 12:02 Sodium 136 (136-145) mEq/L Potassium 4.6 H (3.5-4.5) mEq/L Chloride 101 (98-109) mEq/L Carbon Dioxide 27 (19-29) mEq/L BUN 68 H (8-26) mg/dL Creatinine 2.55 H (0.72-1.25) mg/dL Glucose 173 H (70-99) mg/dL Calcium 9.1 (8.6-10.8) mg/dL Urine 07/29/17 Range/Units 11:33 Urine Color Yellow (Yellow) Urine Clarity Turbid A (Clear) Urine pH 6.5 (5.0-8.0) pH Units Ur Specific Bryan 1.013 (1.010-1.025) Urine Protein 30 H (Neg-Trace) mg/dL Urine Glucose (UA) Normal (Normal) mg/dL Result diagrams: 07/29/17 12:02 07/29/17 12:02 Lab Results 07/29/17 07/29/17 07/29/17 Range/Units 11:33 12:02 12:02 WBC 6.5 (4.3-11.1) K/mcL RBC 4.34 (4.19-5.50) M/mcL Hgb 11.9 L (12.9-16.9) g/dL Hct 38.0 (37.5-50.1) % MCV 87.6 (83.0-100.0) fL MCH 27.4 L (28.0-33.3) pg MCHC 31.3 L (31.6-35.5) g/dL RDW 14.8 H (11.5-14.5) % Plt Count 301 (140-400) K/mcL MPV 11.4 (9.4-12.4) fL Immature Gran % 0.2 (0-4) % Seg Neutrophils % 57.8 % Lymphocytes % 20.4 % Monocytes % 14.1 % Eosinophils % 6.0 % Basophils % 1.5 % Neutrophils # 3.8 (1.6-8.9) K/mcL Lymphocytes # 1.3 (0.6-4.6) K/mcL Monocytes # 0.9 (0.0-1.3) K/mcL Eosinophils # 0.4 (0.0-0.6) K/mcL Basophils # 0.1 (0.0-0.2) K/mcL Sodium 136 (136-145) mEq/L Potassium 4.6 H (3.5-4.5) mEq/L Chloride 101 (98-109) mEq/L Carbon Dioxide 27 (19-29) mEq/L BUN 68 H (8-26) mg/dL Creatinine 2.55 H (0.72-1.25) mg/dL Est GFR ( Amer) 30 L (> 60) Est GFR (Non-Af Amer) 25 L (> 60) BUN/Creatinine Ratio 27 H (6-26) Glucose 173 H (70-99) mg/dL Calculated Osmolality 306 H (280-300) Calcium 9.1 (8.6-10.8) mg/dL Ur Specimen Adequacy Urine Color Yellow (Yellow) Urine Clarity Turbid A (Clear) Urine pH 6.5 (5.0-8.0) pH Units Ur Specific Bryan 1.013 (1.010-1.025) Urine Protein 30 H (Neg-Trace) mg/dL Urine Glucose (UA) Normal (Normal) mg/dL Urine Ketones Negative (Negative) mg/dL Urine Blood Moderate H (Negative) Urine Nitrite Negative (Negative) Urine Bilirubin Negative (Negative) Urine Urobilinogen Normal (Normal) mg/dL Ur Leukocyte Esterase Moderate H (Negative) Urine Microscopic RBC 0-3 (0-3) per hpf Urine Microscopic WBC 50-100 H (0-3) per hpf Ur Squamous Epith Cells Many H (None-Few) per lpf Amorphous Sediment Moderate H (Few) Urine Bacteria Moderate H (None-Few) per hpf Hyaline Casts Few (None-Few) per lpf Granular Casts Few H (None Seen) per lpf Urine Mucus Moderate H (Few) Urine Yeast Test Not Performed Ur Culture Indicated? YES A (NO) - Radiology Data Radiology results reviewed: Yes I reviewed the patient's radiology results. Attestation Statement - Attestation Attestation: I examined this patient and my medical decision-making was reviewed with the Resident Physician. I agree with the documented findings, disposition and treatment plan as described.
[2017-07-29 15:17] LABS: Basophils # 0.1 K/mcL (0.0-0.2); Basophils % 1.5 %; Eosinophils # 0.4 K/mcL (0.0-0.6); Hemoglobin 11.9 g/dL (12.9-16.9); Immature Granulocytes % 0.2 % (0-4); Lymphocytes # 1.3 K/mcL (0.6-4.6); Lymphocytes % 20.4 %; Mean Corpuscular HGB Conc 31.3 g/dL (31.6-35.5); Mean Corpuscular Hemoglobin 27.4 pg (28.0-33.3); Mean Corpuscular Volume 87.6 fL (83.0-100.0); Mean Platelet Volume 11.4 fL (9.4-12.4); Monocytes # 0.9 K/mcL (0.0-1.3); Monocytes % 14.1 %; Neutrophils # 3.8 K/mcL (1.6-8.9); Platelet Count 301 K/mcL (140-400); Red Blood Count 4.34 M/mcL (4.19-5.50); Red Cell Distribution Width 14.8 % (11.5-14.5); Segmented Neutrophils % 57.8 %
[2017-07-29] MEDS ORDERED: Naloxone 0.4 MG/ML INJ IVP PRN (18:10)
[2017-07-29] MEDS ORDERED: Acetaminophen 325 MG TABLET PO PRN (18:10)
[2017-07-29] MEDS ORDERED: Ondansetron 4 MG/2 ML VIAL IVP PRN (18:10)
--- NOTE | 2017-07-29 19:11 | Internal Med History&Physical ---
Date of Encounter: 07/29/17 Time of Encounter: 18:00 Assessment and Plan (1) UTI (urinary tract infection) Current visit: Yes Status: Acute Patient currently denies urinary complaints. Urinalysis is suggestive of UTI although urine sample may have been from chronic Adame bag. We will try to send a new more sterile sample. Follow up urine culture and continue IV Rocephin. Recent urine culture grew Proteus mirabilis, sensitive to cephalosporins. Patient will need Adame catheter changed by urology before discharge. Qualifiers: Urinary tract infection type: site unspecified Hematuria presence: without hematuria Qualified Code(s): N39.0 - Urinary tract infection, site not specified (2) SUNI (acute kidney injury) Current visit: Yes Status: Acute Uncertain etiology. Continue IV hydration for prerenal etiology. No fever or rash. Hold diuretics and khanh inhibitors for now. Continue to monitor serum creatinine closely. (3) Osteoarthritis Current visit: Yes Status: Chronic Patient has had issues with right hip pain since previous admission at which time he picks her showed significant degenerative changes. He has been given outpatient orthopedics follow-up and has been recommended weight loss prior to total hip replacement. Qualifiers: Osteoarthritis location: hip Osteoarthritis type: primary Laterality: right Qualified Code(s): M16.11 - Unilateral primary osteoarthritis, right hip (4) Hypertension Current visit: Yes Status: Chronic Blood pressure noted to be well controlled. Hold KHANH inhibitor. Qualifiers: Hypertension type: essential hypertension Qualified Code(s): I10 - Essential (primary) hypertension (5) Diabetes mellitus Current visit: Yes Status: Chronic Continue Accu-Chek blood glucose monitoring with sliding scale insulin as needed. Diabetic diet. Qualifiers: Diabetes mellitus type: type 2 Diabetes mellitus complication status: with unspecified complications Diabetes mellitus prison insulin use: without long term care phlebotomist use Qualified Code(s): E11.8 - Type 2 diabetes mellitus with unspecified complications (6) A-fib Current visit: Yes Status: Chronic Currently rate controlled. Continue beta anastacio and long-term anticoagulation with Xarelto. Telemetry monitoring. Qualifiers: Atrial fibrillation type: chronic Qualified Code(s): I48.2 - Chronic atrial fibrillation (7) GERD (gastroesophageal reflux disease) Current visit: Yes Status: Chronic Qualifiers: Esophagitis presence: esophagitis presence not specified Qualified Code(s) : K21.9 - Gastro-esophageal reflux disease without esophagitis (8) COPD (chronic obstructive pulmonary disease) Current visit: Yes Status: Chronic Patient denies history of COPD although it has been documented in previous notes. Continue when necessary bronchodilators. Not requiring supplemental oxygen at this time. Qualifiers: COPD type: unspecified COPD Qualified Code(s): J44.9 - Chronic obstructive pulmonary disease, unspecified Internal Medicine - H&P: HPI Chief complaint: Abnormal labs Admitted From: Emergency Dept Plans for Post Hospital Care: Transfer [facility] History of present illness: Mr. Jimenez is a 71 year old male who was sent from the [facility] for evaluation of abnormal labs. Patient was recently discharged from our hospital about 2 weeks ago, after being treated for sepsis and UTI and was discharged on IV cefepime. Patient has been getting regular BMP checks and his renal function is noted to be abnormal on today's labs for which he was referred to the emergency room. He denies nausea, vomiting, abdominal pain. No chest pain or shortness of breath or any other complaints. 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 He follows with urology as outpatient where he has his Adame catheter changed monthly. Past Med Surg Social Fam HX - Past Medical History Medical history: atrial fibrillation, CHF, diabetes, GERD, hypertension, venous stasis Psychiatric history: no psych history - Past Surgical History Surgical History: appendectomy, herniorrhaphy, knee replacement (Bilateral), orthopedic, other - Social History Smoking Status: Never smoker Smokeless Tobacco Status: No Alcohol use: none Drug use: none Occupational status: retired Current living situation: [facility] Activity Level: Uses cane/walker Recent Out of Country Travel Within the Last 8 Weeks: No Exposure or Possible Exposure to Illness During Travel: No - Family History Mother Living Status: Age at : 96 Hx Family Cardiac Disorders: Yes (HTN) Father Living Status: Age at : 88 Hx Family Cardiac Disorders: Yes (CHF) Hx Family Respiratory Disorders: No Hx Family Cancer: No Hx Family Endocrine Disorder: No Internal Medicine - H&P: Meds Labetalol HCl 300 mg PO 0700,1200,2100 10/25/16 [History] Pantoprazole Sodium [Protonix] 40 mg PO QAM 10/25/16 [History] Potassium Chloride [K-Tab ER] 20 meq PO QAM 10/25/16 [History] Rivaroxaban [Xarelto] 20 mg PO QAM 10/25/16 [History] SitaGLIPtin [Januvia] 100 mg PO QAM 10/25/16 [History] Tramadol HCl [Ultram] 50 mg PO 0800,1200,199910/25/16 [History] Furosemide [Lasix] 40 mg PO QAM 01/12/17 [History] Carbidopa/Levodopa [Carbidopa-Levodopa 25-100 Tab] 1 tab PO HS 07/09/17 [History ] Cholecalciferol (Vitamin D3) [Vitamin D3] 5,000 unit PO QAM 07/09/17 [History] Metformin HCl [Metformin HCl ER] 1,000 mg PO 0700,2100 07/09/17 [History] Cefepime HCl [Maxipime] 2,000 mg IVPB Q12HR #28 vial 07/13/17 [Rx] Ammonium Lactate [Taina-Hydrolac] 1 appl TP 09,199907/29/17 [History] HYDROcodone/Acet 5/325 mg [Errol 5-325 mg] 1 tab PO Q6H PRN 07/29/17 [History] Lactulose 20 gm PO 0900,1700 07/29/17 [History] Nystatin POWDER [Nystop] 1 appl TP 0900,199907/29/17 [History] Polyethylene Glycol 3350 [MiraLAX] 17 gm PO QAM 07/29/17 [History] 3 Allergy/AdvReac Type Severity Reaction Status Date / Time No Known Allergies Allergy Verified 09/05/15 12:17 All Systems PM: A 10-system review of systems was performed and is negative for pertinent findings except as documented above in the HPI. - Constitutional Constitutional: no chills, no fever(s), no night sweats - EENT Eyes: no change in vision, no discharge, no pain, no photophobia Ears: no ear discharge, no ear pain, no tinnitus Nose, mouth and throat: no dysphagia, no nasal discharge, no neck pain, no sore throat - Cardiovascular Cardiovascular ROS IM: no chest pain, no diaphoresis, no dyspnea, no lightheadedness, no palpitations, no syncope - Respiratory Respiratory: no cough, no dyspnea, no wheezing, no excessive phlegm production - Gastrointestinal Gastrointestinal: no abdominal pain, no diarrhea, no hematemesis, no hematochezia, no melena, no nausea, no vomiting - Musculoskeletal Musculoskeletal ROS IM: limited range of motion (Right hip pain), no numbness, no tingling - Integumentary Integumentary IM: no rash, no unusual bruising - Neurological Neurological ROS: no confusion, no convulsions, no focal weakness, no numbness, no tingling, no tremor(s) - Hematologic/Lymphatic Hematologic/Lymphatic: no easy bruising - Constitutional Vitals: Temp Pulse Resp BP Pulse Ox 97.6 F 113 16 131/86 92 07/29/17 18:16 07/29/17 18:16 07/29/17 18:16 07/29/17 18:16 07/29/17 18:16 General appearance: Present: A&O X 3, obese, answers questions appropriately - Respiratory Respiratory exam: Present: CTAB. Absent: accessory muscle use, rales, rhonchi, wheezes - Cardiovascular Cardiovascular exam: Present: irregular rhythm, +S1, +S2. Absent: diastolic murmur, gallop, rubs, systolic murmur - GI/Abdominal GI/Abdominal exam: Present: normal bowel sounds, soft (Obese and nontender), no peritoneal signs. Absent: distended, tenderness - Extremities Exam Extremities exam: Present: full ROM, pedal edema (Trace bilateral pedal edema along with stasis dermatitis on the anterior legs-improving), warm, radial pulses palpable and symmetrical. Absent: calf tenderness, cyanotic - Neurological Exam Neurological exam: Present: CN II-XII intact, oriented X3, no focal deficits. Absent: pronater drift, facial droop, speech deficit Internal Med - H&P Results - Labs CBC & Chem 7: 07/30/17 05:57 07/30/17 05:57
[2017-07-29] MEDS: 0.9 % Sodium Chloride 1,000 ML IVC SCH (19:21)
[2017-07-29] MEDS: *HR* OxyCODONE Immed Rel 5 MG TABLET PO PRN (21:09)
[2017-07-29] MEDS: Carbidopa/Levodopa 25/100 TABLET PO SCH (21:10)
[2017-07-30 06:16] LABS: Basophils # 0.1 K/mcL (0.0-0.2); Basophils % 1.6 %; Eosinophils # 0.3 K/mcL (0.0-0.6); Hematocrit 38.8 % (37.5-50.1); Hemoglobin 12.4 g/dL (12.9-16.9); Immature Granulocytes % 0.3 % (0-4); Lymphocytes # 1.5 K/mcL (0.6-4.6); Lymphocytes % 23.5 %; Mean Corpuscular Hemoglobin 27.5 pg (28.0-33.3); Mean Platelet Volume 10.8 fL (9.4-12.4); Monocytes # 0.9 K/mcL (0.0-1.3); Monocytes % 13.8 %; Neutrophils # 3.5 K/mcL (1.6-8.9); Platelet Count 304 K/mcL (140-400); Red Blood Count 4.51 M/mcL (4.19-5.50); Red Cell Distribution Width 14.8 % (11.5-14.5); Segmented Neutrophils % 55.8 %
[2017-07-30 06:28] LABS: Calcium 9.3 mg/dL (8.6-10.8); Magnesium 1.8 mg/dL (1.6-2.6); Potassium 4.6 mEq/L (3.5-4.5)
[2017-07-30] MEDS: Cholecalciferol (D-3) 1,000 UNIT TABLET PO SCH (09:58)
[2017-07-30] MEDS: Lactulose Oral Soln 20 GM/30 ML UDC PO SCH ×2 (09:58→16:35)
[2017-07-30] MEDS: *HR* OxyCODONE Immed Rel 5 MG TABLET PO PRN ×3 (09:58→21:54)
[2017-07-30] MEDS: *HR* Rivaroxaban 15 MG TABLET PO SCH (16:31)
[2017-07-30] MEDS: 0.9 % Sodium Chloride 1,000 ML IVC SCH (16:34)
--- NOTE | 2017-07-30 16:55 | Event Note ---
Date of Encounter: 07/30/17 Time of Encounter: 16:54 71-year-old man with an indwelling catheter. His due for catheter change. His catheter was removed. Under sterile conditions I placed an 18 [place] coude catheter. He tolerated the procedure well. Clear urine returned.
--- NOTE | 2017-07-30 18:01 | Internal Med Progress Note ---
Date of Encounter: 07/30/17 Time of Encounter: 08:15 - Assessment and plan (1) SUNI (acute kidney injury) Current Visit: Yes Status: Acute Assessment and plan: Renal function slightly improved today with creatinine of 2.4. We will continue to monitor renal function closely. Continue to hold diuretics and leobardo inhibitors. Will get renal ultrasound. Moderate risk for complications (2) A-fib Current Visit: Yes Status: Chronic Assessment and plan: Rate controlled and regular rhythm. Anticoagulation with Xarelto. Qualifiers: Atrial fibrillation type: chronic Qualified Code(s): I48.2 - Chronic atrial fibrillation (3) COPD (chronic obstructive pulmonary disease) Current Visit: Yes Status: Chronic Assessment and plan: Not in acute exacerbation Qualifiers: COPD type: unspecified COPD Qualified Code(s): J44.9 - Chronic obstructive pulmonary disease, unspecified (4) Diabetes mellitus Current Visit: Yes Status: Chronic Assessment and plan: Fairly controlled. Continue current insulin regimen Qualifiers: Diabetes mellitus type: type 2 Diabetes mellitus complication status: with unspecified complications Diabetes mellitus intermediate project manager insulin use: without retirement use Qualified Code(s): E11.8 - Type 2 diabetes mellitus with unspecified complications (5) GERD (gastroesophageal reflux disease) Current Visit: Yes Status: Chronic Assessment and plan: Continue Prilosec Qualifiers: Esophagitis presence: esophagitis presence not specified Qualified Code(s) : K21.9 - Gastro-esophageal reflux disease without esophagitis (6) Hypertension Current Visit: Yes Status: Chronic Assessment and plan: Blood pressure is well controlled Qualifiers: Hypertension type: essential hypertension Qualified Code(s): I10 - Essential (primary) hypertension (7) UTI (urinary tract infection) Current Visit: Yes Status: Ruled-out Assessment and plan: We will stop antibiotics as urine culture shows no growth. Patient has completed treatment for prior UTIs with cefepime. Qualifiers: Urinary tract infection type: acute cystitis Hematuria presence: without hematuria Qualified Code(s): N30.00 - Acute cystitis without hematuria - Subjective Interval history: Patient feels better today. No new complaints at this time. No dysuria. No shortness of breath or chest pain. No abdominal pain - Constitutional Vitals: Temp Pulse Resp BP Pulse Ox 98.0 F 85 17 135/82 94 07/30/17 15:24 07/30/17 15:24 07/30/17 15:24 07/30/17 15:24 07/30/17 15:24 General appearance: Present: A&O X 3, obese, answers questions appropriately - Neck Neck exam general surgery: Present: supple, trachea midline. Absent: lymphadenopathy - Respiratory Respiratory exam: Present: CTAB. Absent: accessory muscle use, rales, rhonchi, wheezes - GI/Abdominal GI/Abdominal exam: Present: normal bowel sounds, soft, no peritoneal signs. Absent: distended, tenderness - Additional comments: Indwelling Adame catheter - Neurological Exam Neurological exam: Present: alert, oriented X3, no focal deficits. Absent: facial droop, speech deficit Internal Medicine: Result - Labs CBC & Chem 7: 07/30/17 05:57 07/30/17 05:57 Labs: Short CBC 07/30/17 Range/Units 05:57 WBC 6.2 (4.3-11.1) K/mcL Hgb 12.4 L (12.9-16.9) g/dL Hct 38.8 (37.5-50.1) % Plt Count 304 (140-400) K/mcL Neutrophils # 3.5 (1.6-8.9) K/mcL BMP 07/30/17 05:57 Sodium 138 Potassium 4.6 H Chloride 103 Carbon Dioxide 24 BUN 62 H Creatinine 2.40 H Glucose 128 H Calcium 9.3 Consult Discharge Plan - Plan Referrals: Bulmaro Negro MD [Primary Care Provider] - 08/07/17 2:00 pm
[2017-07-30] MEDS: Carbidopa/Levodopa 25/100 TABLET PO SCH (21:04)
[2017-07-31 05:37] LABS: Calcium 9.1 mg/dL (8.6-10.8); Potassium 4.4 mEq/L (3.5-4.5)
[2017-07-31] MEDS: Lactulose Oral Soln 20 GM/30 ML UDC PO SCH ×2 (08:54→16:24)
[2017-07-31] MEDS: Cholecalciferol (D-3) 1,000 UNIT TABLET PO SCH (08:54)
[2017-07-31] MEDS: 0.9 % Sodium Chloride 1,000 ML IVC SCH ×2 (12:06→12:13)
--- NOTE | 2017-07-31 15:27 | Internal Med Progress Note ---
Date of Encounter: 07/31/17 Time of Encounter: 08:20 - Assessment and plan (1) SUNI (acute kidney injury) Current Visit: Yes Status: Acute Assessment and plan: From possible ATN versus interstitial nephritis. Improving renal function. BUN 59 and creatinine 2.3 today. Patient having good urine output. Continue gentle IV hydration. All antibiotics have been stopped. Continue to hold Lasix. (2) A-fib Current Visit: Yes Status: Chronic Assessment and plan: Rate controlled. On anticoagulation with Xarelto Qualifiers: Atrial fibrillation type: chronic Qualified Code(s): I48.2 - Chronic atrial fibrillation (3) COPD (chronic obstructive pulmonary disease) Current Visit: Yes Status: Chronic Assessment and plan: Continue to treat symptomatically with bronchodilators as needed. Patient not in acute exacerbation Qualifiers: COPD type: unspecified COPD Qualified Code(s): J44.9 - Chronic obstructive pulmonary disease, unspecified (4) Diabetes mellitus Current Visit: Yes Status: Chronic Assessment and plan: We will add sliding scale insulin coverage Qualifiers: Diabetes mellitus type: type 2 Diabetes mellitus complication status: with unspecified complications Diabetes mellitus supervisor intermediates insulin use: without supervisor intermediates use Qualified Code(s): E11.8 - Type 2 diabetes mellitus with unspecified complications (5) GERD (gastroesophageal reflux disease) Current Visit: Yes Status: Chronic Assessment and plan: Continue omeprazole Qualifiers: Esophagitis presence: esophagitis presence not specified Qualified Code(s) : K21.9 - Gastro-esophageal reflux disease without esophagitis (6) Hypertension Current Visit: Yes Status: Chronic Assessment and plan: Blood pressure elevated this morning but has been otherwise well controlled. Continue labetalol. Qualifiers: Hypertension type: essential hypertension Qualified Code(s): I10 - Essential (primary) hypertension - Subjective Interval history: Patient continues to improve. Continues to have good urine output. No other complaints at this time. No chest pain or shortness of breath. No Leg swelling. Adame catheter was changed yesterday by urologist. - Constitutional Vitals: Temp Pulse Resp BP Pulse Ox 98.6 F 76 16 120/84 92 07/31/17 11:51 07/31/17 11:51 07/31/17 11:51 07/31/17 11:51 07/31/17 11:51 General appearance: Present: A&O X 3, obese, answers questions appropriately - Eye Eye exam: Present: EOMI, PERRL, conjuntiva pink, sclera anicteric - Respiratory Respiratory exam: Present: CTAB. Absent: accessory muscle use, rales, rhonchi, wheezes - Cardiovascular Cardiovascular exam: Present: RRR, +S1, +S2. Absent: diastolic murmur, gallop, rubs, systolic murmur - GI/Abdominal GI/Abdominal exam: Present: normal bowel sounds, soft, no peritoneal signs. Absent: distended, tenderness - Extremities Exam Extremities exam: Present: warm, radial pulses palpable and symmetrical. Absent : calf tenderness, cyanotic, pedal edema - Neurological Exam Neurological exam: Present: alert, oriented X3, no focal deficits. Absent: facial droop, speech deficit - Skin Skin exam: Present: dry, intact Internal Medicine: Result - Labs CBC & Chem 7: 07/30/17 05:57 07/31/17 05:17 Labs: BMP 07/31/17 05:17 Sodium 138 Potassium 4.4 Chloride 104 Carbon Dioxide 26 BUN 59 H Creatinine 2.31 H Glucose 129 H Calcium 9.1 - Impressions Impressions Retroperitoneum Ultrasound 07/30/17 18:04 IMPRESSION: Unremarkable ultrasound of the kidneys and urinary bladder. D/ / Cristiana Whitley Cha, MD / Cristiana Whitley Cha, MD Interpreting Provider: Cristiana Whitley Cha, MD Consult Discharge Plan - Plan Referrals: Bulmaro Negro MD [Primary Care Provider] - 08/07/17 2:00 pm
[2017-07-31] MEDS ORDERED: Dextrose Gel 15 GM PO PRN ×2 (15:34)
[2017-07-31] MEDS ORDERED: *HR* Dextrose 50 % in Water (Syg) 50 ML SYRINGE IVP PRN (15:34)
[2017-07-31] MEDS ORDERED: D5% in Water 1,000 ML IVC PRN (15:34)
[2017-07-31] MEDS: *HR* Rivaroxaban 15 MG TABLET PO SCH (16:25)
[2017-07-31] MEDS: Insulin LISPRO 300 UNITS/3 ML VIAL SQ SCH ×2 (16:25→20:40)
[2017-07-31] MEDS: *HR* OxyCODONE Immed Rel 5 MG TABLET PO PRN ×2 (16:25→22:30)
[2017-07-31] MEDS: Carbidopa/Levodopa 25/100 TABLET PO SCH (20:40)
[2017-08-01] MEDS: 0.9 % Sodium Chloride 1,000 ML IVC SCH ×2 (02:00→11:55)
[2017-08-01] MEDS: *HR* OxyCODONE Immed Rel 5 MG TABLET PO PRN (04:22)
[2017-08-01] MEDS: Cholecalciferol (D-3) 1,000 UNIT TABLET PO SCH (08:36)
[2017-08-01] MEDS: Lactulose Oral Soln 20 GM/30 ML UDC PO SCH ×2 (08:36→17:35)
[2017-08-01] MEDS: Insulin LISPRO 300 UNITS/3 ML VIAL SQ SCH ×4 (08:37→20:43)
[2017-08-01 08:41] LABS: Potassium 4.2 mEq/L (3.5-4.5)
--- NOTE | 2017-08-01 15:33 | Internal Med Progress Note ---
Date of Encounter: 08/01/17 Time of Encounter: 08:15 - Assessment and plan (1) SUNI (acute kidney injury) Current Visit: Yes Status: Acute Assessment and plan: Resolving. Creatinine is 1.96. Continue to hold diuretics. Will stop IV fluids. Encourage oral fluid intake. Continue to monitor renal function. Plan to discharge patient to skilled rehabilitation when bed available and authorization obtained. Moderate risk for complications. (2) A-fib Current Visit: Yes Status: Chronic Assessment and plan: Rate controlled. On anticoagulation with Xarelto Qualifiers: Atrial fibrillation type: chronic Qualified Code(s): I48.2 - Chronic atrial fibrillation (3) COPD (chronic obstructive pulmonary disease) Current Visit: Yes Status: Chronic Assessment and plan: Not in acute exacerbation at this time. Qualifiers: COPD type: unspecified COPD Qualified Code(s): J44.9 - Chronic obstructive pulmonary disease, unspecified (4) Diabetes mellitus Current Visit: Yes Status: Chronic Assessment and plan: Blood sugars remain elevated. We will add low-dose of long-acting insulin. Qualifiers: Diabetes mellitus type: type 2 Diabetes mellitus complication status: with unspecified complications Diabetes mellitus extermination supervisor insulin use: without jail use Qualified Code(s): E11.8 - Type 2 diabetes mellitus with unspecified complications (5) GERD (gastroesophageal reflux disease) Current Visit: Yes Status: Chronic Assessment and plan: Continue PPI Qualifiers: Esophagitis presence: esophagitis presence not specified Qualified Code(s) : K21.9 - Gastro-esophageal reflux disease without esophagitis (6) Hypertension Current Visit: Yes Status: Chronic Assessment and plan: Blood pressure is fairly controlled with intermittent elevation especially in the morning. Will add amlodipine to control blood pressure better Qualifiers: Hypertension type: essential hypertension Qualified Code(s): I10 - Essential (primary) hypertension - Subjective Interval history: Patient is doing well. No new complaints at this time. Tolerating diet well. Continues to have good urine output - Constitutional Vitals: Temp Pulse Resp BP Pulse Ox 97.7 F 57 14 129/83 96 08/01/17 15:01 08/01/17 15:01 08/01/17 15:01 08/01/17 15:01 08/01/17 15:01 General appearance: Present: A&O X 3, obese, answers questions appropriately - Neck Neck exam general surgery: Present: supple, trachea midline. Absent: lymphadenopathy - Respiratory Respiratory exam: Present: CTAB. Absent: accessory muscle use, rales, rhonchi, wheezes - Cardiovascular Cardiovascular exam: Present: RRR, +S1, +S2. Absent: diastolic murmur, gallop, rubs, systolic murmur - GI/Abdominal GI/Abdominal exam: Present: normal bowel sounds, soft, no peritoneal signs. Absent: distended, tenderness - Extremities Exam Extremities exam: Present: warm, radial pulses palpable and symmetrical. Absent : calf tenderness, cyanotic, pedal edema Internal Medicine: Result - Labs CBC & Chem 7: 07/30/17 05:57 08/01/17 07:45 Labs: BMP 08/01/17 07:45 Sodium 138 Potassium 4.2 Chloride 103 Carbon Dioxide 28 BUN 49 H D Creatinine 1.96 H Glucose 115 H Calcium 9.0 Consult Discharge Plan - Plan Referrals: Bulmaro Negro MD [Primary Care Provider] - 08/07/17 2:00 pm
[2017-08-01] MEDS: *HR* Rivaroxaban 15 MG TABLET PO SCH (17:36)
[2017-08-01] MEDS: Carbidopa/Levodopa 25/100 TABLET PO SCH (20:46)
[2017-08-01] MEDS: Insulin DETEMIR 100 UNIT/ML X5UNITS SQ SCH (20:46)
[2017-08-01] MEDS: amLODIPine 5 MG TABLET PO SCH (20:46)
[2017-08-02] MEDS: *HR* Morphine 2 MG/ML SYRINGE IVP PRN (01:27)
[2017-08-02 07:54] LABS: Calcium 8.9 mg/dL (8.6-10.8); Potassium 4.1 mEq/L (3.5-4.5)
[2017-08-02] MEDS: Insulin LISPRO 300 UNITS/3 ML VIAL SQ SCH ×4 (09:10→20:43)
[2017-08-02] MEDS: Lactulose Oral Soln 20 GM/30 ML UDC PO SCH ×2 (10:30→17:38)
[2017-08-02] MEDS: Cholecalciferol (D-3) 1,000 UNIT TABLET PO SCH (10:30)
[2017-08-02] MEDS: *HR* OxyCODONE Immed Rel 5 MG TABLET PO PRN (10:37)
--- NOTE | 2017-08-02 14:57 | Internal Med Progress Note ---
Date of Encounter: 08/02/17 Time of Encounter: 08:15 - Assessment and plan (1) SUNI (acute kidney injury) Current Visit: Yes Status: Acute Assessment and plan: Continues to improve. Ready for discharge from medical standpoint. Awaiting placement to skilled rehabilitation. (2) A-fib Current Visit: Yes Status: Chronic Assessment and plan: Rate controlled. On anticoagulation with Eliquis Qualifiers: Atrial fibrillation type: chronic Qualified Code(s): I48.2 - Chronic atrial fibrillation (3) COPD (chronic obstructive pulmonary disease) Current Visit: Yes Status: Chronic Assessment and plan: Not an acute exacerbation Qualifiers: COPD type: unspecified COPD Qualified Code(s): J44.9 - Chronic obstructive pulmonary disease, unspecified (4) Diabetes mellitus Current Visit: Yes Status: Chronic Assessment and plan: Continue to monitor blood sugars. On sliding scale insulin and 5 units of Levemir. Will continue current management as blood sugars have improved. Qualifiers: Diabetes mellitus type: type 2 Diabetes mellitus complication status: with unspecified complications Diabetes mellitus shelter insulin use: without rat exterminator use Qualified Code(s): E11.8 - Type 2 diabetes mellitus with unspecified complications (5) GERD (gastroesophageal reflux disease) Current Visit: Yes Status: Chronic Assessment and plan: On PPI Qualifiers: Esophagitis presence: esophagitis presence not specified Qualified Code(s) : K21.9 - Gastro-esophageal reflux disease without esophagitis (6) Hypertension Current Visit: Yes Status: Chronic Assessment and plan: Better controlled today. Qualifiers: Hypertension type: essential hypertension Qualified Code(s): I10 - Essential (primary) hypertension - Subjective Interval history: Patient continues to do well. No new complaints at this time. Awaiting placement to skilled rehabilitation - Constitutional Vitals: Temp Pulse Resp BP Pulse Ox 98.6 F 62 20 133/82 93 08/02/17 11:45 08/02/17 11:45 08/02/17 11:45 08/02/17 11:45 08/02/17 11:45 General appearance: Present: cooperative, A&O X 3, obese, answers questions appropriately - Respiratory Respiratory exam: Present: CTAB. Absent: accessory muscle use, rales, rhonchi, wheezes - Cardiovascular Cardiovascular exam: Present: RRR, +S1, +S2. Absent: diastolic murmur, gallop, rubs, systolic murmur - GI/Abdominal GI/Abdominal exam: Present: normal bowel sounds, soft, no peritoneal signs. Absent: distended, tenderness - Extremities Exam Extremities exam: Present: warm, radial pulses palpable and symmetrical. Absent : calf tenderness, cyanotic, pedal edema - Neurological Exam Neurological exam: Present: alert, oriented X3, no focal deficits. Absent: facial droop, speech deficit Internal Medicine: Result - Labs CBC & Chem 7: 07/30/17 05:57 08/02/17 06:23 Labs: BMP 08/02/17 06:23 Sodium 138 Potassium 4.1 Chloride 104 Carbon Dioxide 29 BUN 42 H Creatinine 1.77 H Glucose 112 H Calcium 8.9 Consult Discharge Plan - Plan Referrals: Bulmaro Negro MD [Primary Care Provider] - 08/07/17 2:00 pm
[2017-08-02] MEDS: *HR* Rivaroxaban 15 MG TABLET PO SCH (17:38)
[2017-08-02] MEDS: Insulin DETEMIR 100 UNIT/ML X5UNITS SQ SCH (20:41)
[2017-08-02] MEDS: amLODIPine 5 MG TABLET PO SCH (20:41)
[2017-08-02] MEDS: Carbidopa/Levodopa 25/100 TABLET PO SCH (20:41)
[2017-08-03] MEDS: *HR* Morphine 2 MG/ML SYRINGE IVP PRN (02:23)
[2017-08-03] MEDS: Insulin LISPRO 300 UNITS/3 ML VIAL SQ SCH ×4 (08:04→21:27)
[2017-08-03] MEDS: Lactulose Oral Soln 20 GM/30 ML UDC PO SCH ×2 (08:15→17:47)
[2017-08-03] MEDS: Cholecalciferol (D-3) 1,000 UNIT TABLET PO SCH (08:15)
[2017-08-03] MEDS: *HR* OxyCODONE Immed Rel 5 MG TABLET PO PRN ×2 (08:22→23:35)
--- NOTE | 2017-08-03 09:25 | Discharge Summary ---
Date of Encounter: 08/03/17 Time of Encounter: 08:15 - Discharge Diagnosis (1) SUNI (acute kidney injury) Priority: Primary Status: Acute (2) A-fib Priority: Secondary Status: Chronic Qualifiers: Atrial fibrillation type: chronic Qualified Code(s): I48.2 - Chronic atrial fibrillation (3) COPD (chronic obstructive pulmonary disease) Priority: Secondary Status: Chronic Qualifiers: COPD type: unspecified COPD Qualified Code(s): J44.9 - Chronic obstructive pulmonary disease, unspecified (4) Diabetes mellitus Priority: Secondary Status: Chronic Qualifiers: Diabetes mellitus type: type 2 Diabetes mellitus complication status: with unspecified complications Diabetes mellitus prison insulin use: without prison use Qualified Code(s): E11.8 - Type 2 diabetes mellitus with unspecified complications (5) GERD (gastroesophageal reflux disease) Priority: Secondary Status: Chronic Qualifiers: Esophagitis presence: esophagitis presence not specified Qualified Code(s) : K21.9 - Gastro-esophageal reflux disease without esophagitis (6) Hypertension Priority: Secondary Status: Chronic Qualifiers: Hypertension type: essential hypertension Qualified Code(s): I10 - Essential (primary) hypertension - Discharge Medications Prescriptions: Furosemide [Lasix] 40 mg PO DAILY #30 tablet HYDROcodone/Acet 5/325 mg [[place] 5-325 mg] 1 tab PO Q6H PRN #14 tab PRN Reason: Pain Potassium Chloride 20 meq PO DAILY #30 tab.er.prt Home Medications: Labetalol HCl 300 mg PO 0700,1200,2100 10/25/16 [History] Pantoprazole Sodium [Protonix] 40 mg PO QA 10/25/16 [History] Rivaroxaban [Xarelto] 20 mg PO QA 10/25/16 [History] SitaGLIPtin [Januvia] 100 mg PO QA 10/25/16 [History] Carbidopa/Levodopa [Carbidopa-Levodopa 25-100 Tab] 1 tab PO HS 07/09/17 [History ] Cholecalciferol (Vitamin D3) [Vitamin D3] 5,000 unit PO QAM 07/09/17 [History] Metformin HCl [Metformin HCl ER] 1,000 mg PO 0700,2100 07/09/17 [History] Ammonium Lactate [[place]a-Hydrolac] 1 appl TP 0900,199907/29/17 [History] Lactulose 20 gm PO 0900,1700 09/06/17 [History] Nystatin POWDER [Nystop] 1 appl TP 899,199907/29/17 [History] Polyethylene Glycol 3350 [MiraLAX] 17 gm PO QAM 07/29/17 [History] Furosemide [Lasix] 40 mg PO DAILY #30 tablet 08/03/17 [Rx] HYDROcodone/Acet 5/325 mg [[place] 5-325 mg] 1 tab PO Q6H PRN #14 tab 08/03/17 [Rx ] Potassium Chloride 20 meq PO DAILY #30 tab.er.prt 08/03/17 [Rx] amLODIPine [Norvasc] 5 mg PO HS tab 08/03/17 [Rx] Allergies/Adverse Reactions: 3 Allergy/AdvReac Type Severity Reaction Status Date / Time No Known Allergies Allergy Verified 09/05/15 12:17 Date of admission: 07/29/17 18:10 Primary care physician: Bulmaro Negro MD Consults: 07/30/17 09:32 Consult to Occupational Therapy [CONS] Routine Comment: Evaluate, develop and implement POC Reason for Consult: eval to return to [facility]CF Consult to Physical Therapy [CONS] Routine Comment: Evaluate, develop and implement POC Reason for Consult: eval to return to ECF Consult to Regulatory Internship [CONS] Routine Reason for SW Consult: returning to [facility] 07/30/17 12:55 Consult to Urology [CONS] Routine Consulting Provider: Bhargav Brian Reason for Consult: Chronic indwelling tomlinson catheter Time Notified: 12:55 Call Completed: Yes Discharging clinician: Brittany Oden Anticipated date of discharge: 08/04/17 - Patient Status Disposition: Transfer SNF Condition: Fair Functional capacity at discharge: uses cane/walker Overall status at discharge: patient is progressing back to baseline - Discharge Instructions Instructions: Furosemide (By mouth), Hydrocodone/Acetaminophen (By mouth), Potassium Chloride (By mouth), Urinary Tract Infection in Men (DC) Follow Up With: Bulmaro Negro MD [Primary Care Provider] - 08/07/17 2:00 pm Heidi Sanchez CNP [Advanced Practice Nurse] - 08/17/17 8:30 am Additional Instructions: Please hold Lasix and potassium tablets till you have your basic panel rechecked and you may resume taking these medications once your kidney function has returned to normal - Diet and Activity Activity: increase activity as tolerated Diet: diabetic diet, low fat, low cholesterol, low salt diet Hospital course: Mr. Jimenez is a 71 year old male patient with a history of atrial fibrillation, congestive heart failure, diabetes, hypertension and chronic venous stasis who had recently been discharged from the hospital with intravenous antibiotics for urinary tract infection with Proteus mirabilis. [facility] showed that she had elevated BUN and creatinine. So he was admitted here with acute kidney injury. His renal function was monitored closely and he was treated with IV fluids. His repeat urine culture here was negative. He had completed antibiotic course prior to presentation. Possible causes for his acute kidney injury include ATN and possible interstitial nephritis with cephalosporin use. His renal function improved slowly and his creatinine continues to trend towards his normal baseline. He is clinically stable for discharge and is awaiting prior authorization [facility]. He will continue to hold his Lasix still he gets his blood work checked in 2 days. If his renal function is back to baseline, he may resume taking his Lasix along with potassium. - Time Spent with Patient Total time spent providing and/or coordinating discharge services: Greater than 30 minutes (40 min) - Constitutional Vitals: Temp Pulse Resp BP Pulse Ox 98.2 F 66 16 153/89 91 08/03/17 06:55 08/03/17 06:55 08/03/17 06:55 08/03/17 06:55 08/03/17 06:55 General appearance: Present: cooperative, A&O X 3, obese, answers questions appropriately - Respiratory Respiratory exam: Present: CTAB. Absent: accessory muscle use, rales, rhonchi, wheezes - Cardiovascular Cardiovascular exam: Present: RRR, +S1, +S2. Absent: diastolic murmur, gallop, rubs, systolic murmur - GI/Abdominal GI/Abdominal exam: Present: normal bowel sounds, soft, no peritoneal signs. Absent: distended, tenderness - Extremities Exam Extremities exam: Present: pedal edema (Chronic), warm, radial pulses palpable and symmetrical. Absent: calf tenderness, cyanotic Additional comments: Bilateral lower extremity stasis dermatitis
--- NOTE | 2017-08-03 09:37 | Physician Discharge Referral ---
ExtendedCare Referral Info Provider in Charge after Transfer: PCP Institutional Level of Care: Skilled - Diagnosis (1) SUNI (acute kidney injury) Priority: Primary Status: Acute (2) A-fib Priority: Secondary Status: Chronic (3) COPD (chronic obstructive pulmonary disease) Priority: Secondary Status: Chronic (4) Diabetes mellitus Priority: Secondary Status: Chronic (5) GERD (gastroesophageal reflux disease) Priority: Secondary Status: Chronic (6) Hypertension Priority: Secondary Status: Chronic Prognosis: Fair Aware of Diagnosis: Patient, Family Aware of Prognosis: Patient, Family - Transfer Medications Prescriptions: Furosemide [Lasix] 40 mg PO DAILY #30 tablet HYDROcodone/Acet 5/325 mg [[place] 5-325 mg] 1 tab PO Q6H PRN #14 tab PRN Reason: Pain Potassium Chloride 20 meq PO DAILY #30 tab.er.prt Home Medications: Labetalol HCl 300 mg PO 0700,1200,2100 10/25/16 [History] Pantoprazole Sodium [Protonix] 40 mg PO QAM 10/25/16 [History] Rivaroxaban [Xarelto] 20 mg PO QAM 10/25/16 [History] SitaGLIPtin [Januvia] 100 mg PO QAM 10/25/16 [History] Carbidopa/Levodopa [Carbidopa-Levodopa 25-100 Tab] 1 tab PO HS 07/09/17 [History ] Cholecalciferol (Vitamin D3) [Vitamin D3] 5,000 unit PO QAM 07/09/17 [History] Metformin HCl [Metformin HCl ER] 1,000 mg PO 0700,2100 07/09/17 [History] Ammonium Lactate [Taina-Hydrolac] 1 appl TP 09,199907/29/17 [History] Lactulose 20 gm PO 0900,1700 07/29/17 [History] Nystatin POWDER [Nystop] 1 appl TP 09,199907/29/17 [History] Polyethylene Glycol 3350 [MiraLAX] 17 gm PO QAM 07/29/17 [History] Furosemide [Lasix] 40 mg PO DAILY #30 tablet 08/03/17 [Rx] HYDROcodone/Acet 5/325 mg [[place] 5-325 mg] 1 tab PO Q6H PRN #14 tab 08/03/17 [Rx ] Potassium Chloride 20 meq PO DAILY #30 tab.er.prt 08/03/17 [Rx] amLODIPine [Norvasc] 5 mg PO HS tab 08/03/17 [Rx] Allergies/Adverse Reactions: 3 Allergy/AdvReac Type Severity Reaction Status Date / Time No Known Allergies Allergy Verified 09/05/15 12:17 - Respiratory Orders Smoking Cessation: Smoking cessation has been advised. For more information, call the [place] [employer] Line at 7-808-JKMM-NOW. - Lab Orders Lab Orders: Other (include drug levels w/frequency) (Basic Panel on 08/05/17) - Ancillary Orders May consult with Dentist, Dispensing Lead, Electronics Computer Mechanic PRN - Advance Directives Code Status: Full Code - Mobility Orders Ambulate (with walker per PT evaluation) - Rehabiliation Orders Rehab Potential: Fair Rehab Orders: Evaluation for Physical Therapy - Treatments List/Other: Please hold Lasix and potassium tablets till basic panel checked on 08/05/17. He may resume taking these medications if his renal function is normal at that point. - Diet Orders Cardiac CERTIFICATION: I certify that the transfer of the above named patient to an Extended Care Facility is necessary for the continuing treatment of the diagnosis listed. The above information is true and accurate reflection of patient's current condition. Confidential - Redisclosure prohibited without a patient's written consent.
[2017-08-03] MEDS: *HR* Rivaroxaban 15 MG TABLET PO SCH (17:47)
[2017-08-03] MEDS: Insulin DETEMIR 100 UNIT/ML X5UNITS SQ SCH (21:33)
[2017-08-03] MEDS: amLODIPine 5 MG TABLET PO SCH (21:33)
[2017-08-03] MEDS: Carbidopa/Levodopa 25/100 TABLET PO SCH (21:33)
[2017-08-04] MEDS: Cholecalciferol (D-3) 1,000 UNIT TABLET PO SCH (08:40)
[2017-08-04] MEDS: Lactulose Oral Soln 20 GM/30 ML UDC PO SCH ×2 (08:40→16:54)
[2017-08-04] MEDS: Insulin LISPRO 300 UNITS/3 ML VIAL SQ SCH ×4 (08:40→22:26)
[2017-08-04] MEDS: *HR* OxyCODONE Immed Rel 5 MG TABLET PO PRN ×2 (08:40→20:34)
[2017-08-04] MEDS: *HR* Rivaroxaban 15 MG TABLET PO SCH (16:54)
--- NOTE | 2017-08-04 19:00 | Internal Med Progress Note ---
Date of Encounter: 08/04/17 Time of Encounter: 18:59 - Assessment and plan (1) SUNI (acute kidney injury) Current Visit: Yes Status: Acute (2) UTI (urinary tract infection) Current Visit: Yes Status: Acute Qualifiers: Urinary tract infection type: site unspecified Hematuria presence: without hematuria Qualified Code(s): N39.0 - Urinary tract infection, site not specified (3) Diabetes mellitus Current Visit: Yes Status: Chronic Qualifiers: Diabetes mellitus type: type 2 Diabetes mellitus complication status: with unspecified complications Diabetes mellitus intermediate insulin use: without intermediate use Qualified Code(s): E11.8 - Type 2 diabetes mellitus with unspecified complications (4) A-fib Current Visit: Yes Status: Chronic Qualifiers: Atrial fibrillation type: chronic Qualified Code(s): I48.2 - Chronic atrial fibrillation (5) COPD (chronic obstructive pulmonary disease) Current Visit: Yes Status: Chronic Qualifiers: COPD type: unspecified COPD Qualified Code(s): J44.9 - Chronic obstructive pulmonary disease, unspecified - Subjective Interval history: Mr. Jimenez is a 71 year old male patient with a history of atrial fibrillation, congestive heart failure, diabetes, hypertension and chronic venous stasis who had recently been discharged from the hospital with intravenous antibiotics for urinary tract infection with Proteus mirabilis. Blood work done at the [facility] showed that she had elevated BUN and creatinine. So he was admitted here with acute kidney injury. His renal function was monitored closely and he was treated with IV fluids. His repeat urine culture here was negative. He had completed antibiotic course prior to presentation. Possible causes for his acute kidney injury include ATN and possible interstitial nephritis with cephalosporin use. His renal function improved slowly and his creatinine continues to trend towards his normal baseline. He is clinically stable for discharge and is awaiting prior authorization for placement back to [facility]. He will continue to hold his Lasix still he gets his blood work checked in 2 days. If his renal function is back to baseline, he may resume taking his Lasix along with potassium. Morning CBC CMP ordered - Constitutional Vitals: Temp Pulse Resp BP Pulse Ox 98.1 F 69 17 131/74 94 08/04/17 15:30 08/04/17 15:30 08/04/17 15:30 08/04/17 15:30 08/04/17 15:30 General appearance: Present: cooperative, A&O X 3, obese, answers questions appropriately - Head Head exam: Present: atraumatic, normocephalic - Eye Eye exam: Present: PERRL, conjuntiva pink, sclera anicteric Pupils: Present: PERRL - Neck Neck exam general surgery: Present: supple, trachea midline. Absent: lymphadenopathy - Respiratory Respiratory exam: Present: CTAB. Absent: accessory muscle use, rales, rhonchi, wheezes - Cardiovascular Cardiovascular exam: Present: RRR, +S1, +S2. Absent: diastolic murmur, gallop, rubs, systolic murmur - GI/Abdominal GI/Abdominal exam: Present: normal bowel sounds, soft, no peritoneal signs. Absent: distended, tenderness - Extremities Exam Extremities exam: Present: warm, radial pulses palpable and symmetrical. Absent : calf tenderness, cyanotic, pedal edema - Neurological Exam Neurological exam: Present: CN II-XII intact, oriented X3, no focal deficits. Absent: pronater drift, facial droop, speech deficit - Skin Skin exam: Present: dry, intact Internal Medicine: Result - Labs CBC & Chem 7: 07/30/17 05:57 08/02/17 06:23 Consult Discharge Plan - Plan Instructions: Furosemide (By mouth), Hydrocodone/Acetaminophen (By mouth), Potassium Chloride (By mouth), Urinary Tract Infection in Men (DC) Additional Instructions: Please hold Lasix and potassium tablets till you have your basic panel rechecked and you may resume taking these medications once your kidney function has returned to normal Referrals: Bulmaro Negro MD [Primary Care Provider] - 08/07/17 2:00 pm Heidi Sanchez CNP [Advanced Practice Nurse] - 08/17/17 8:30 am Prescriptions: Furosemide [Lasix] 40 mg PO DAILY #30 tablet HYDROcodone/Acet 5/325 mg [[place] 5-325 mg] 1 tab PO Q6H PRN #14 tab PRN Reason: Pain Potassium Chloride 20 meq PO DAILY #30 tab.er.prt
[2017-08-04] MEDS: Insulin DETEMIR 100 UNIT/ML X5UNITS SQ SCH (20:33)
[2017-08-04] MEDS: Carbidopa/Levodopa 25/100 TABLET PO SCH (20:34)
[2017-08-04] MEDS: amLODIPine 5 MG TABLET PO SCH (20:34)
[2017-08-05] MEDS: *HR* Morphine 2 MG/ML SYRINGE IVP PRN (00:05)
[2017-08-05 04:17] LABS: Basophils # 0.1 K/mcL (0.0-0.2); Basophils % 1.4 %; Eosinophils # 0.5 K/mcL (0.0-0.6); Hematocrit 38.9 % (37.5-50.1); Hemoglobin 12.1 g/dL (12.9-16.9); Immature Granulocytes % 0.2 % (0-4); Lymphocytes # 1.7 K/mcL (0.6-4.6); Lymphocytes % 30.4 %; Mean Corpuscular HGB Conc 31.1 g/dL (31.6-35.5); Mean Corpuscular Hemoglobin 27.5 pg (28.0-33.3); Mean Corpuscular Volume 88.4 fL (83.0-100.0); Mean Platelet Volume 10.7 fL (9.4-12.4); Monocytes # 0.8 K/mcL (0.0-1.3); Monocytes % 14.7 %; Neutrophils # 2.6 K/mcL (1.6-8.9); Platelet Count 242 K/mcL (140-400); Segmented Neutrophils % 45.3 %
[2017-08-05 04:29] LABS: Albumin 2.9 g/dL (3.5-5.0); Albumin/Globulin Ratio 0.7 (1.1-2.2); Alkaline Phosphatase 97 Units/L (38-126); Aspartate Amino Transferase 11 Units/L (5-34); BUN/Creatinine Ratio 23 (6-26); Bilirubin,Total 0.3 mg/dL (0.2-1.2); Blood Urea Nitrogen 32 mg/dL (8-26); Carbon Dioxide 32 mEq/L (19-29); Chloride 102 mEq/L (98-109); Globulin 4.1 g/dL (2.4-3.5); Glucose 140 mg/dL (70-99); Osmolality,Calculated 297 (280-300); Potassium 4.2 mEq/L (3.5-4.5); Sodium 139 mEq/L (136-145); eGFR For African Americans > 60 (> 60); eGFR For Non-African Americans 50 (> 60)
[2017-08-05 04:31] LABS: Alanine Aminotransferase < 6 Units/L (0-55)
[2017-08-05] MEDS: *HR* OxyCODONE Immed Rel 5 MG TABLET PO PRN ×2 (04:45→11:47)
[2017-08-05] MEDS: Lactulose Oral Soln 20 GM/30 ML UDC PO SCH ×2 (08:11→17:20)
[2017-08-05] MEDS: Cholecalciferol (D-3) 1,000 UNIT TABLET PO SCH (08:11)
[2017-08-05] MEDS: Insulin LISPRO 300 UNITS/3 ML VIAL SQ SCH ×4 (08:12→22:50)
--- NOTE | 2017-08-05 10:29 | Internal Med Progress Note ---
Date of Encounter: 08/05/17 Time of Encounter: 10:28 - Assessment and plan (1) SUNI (acute kidney injury) Current Visit: Yes Status: Acute (2) UTI (urinary tract infection) Current Visit: Yes Status: Acute Qualifiers: Urinary tract infection type: site unspecified Hematuria presence: without hematuria Qualified Code(s): N39.0 - Urinary tract infection, site not specified (3) Diabetes mellitus Current Visit: Yes Status: Chronic Qualifiers: Diabetes mellitus type: type 2 Diabetes mellitus complication status: with unspecified complications Diabetes mellitus half-way insulin use: without half-way use Qualified Code(s): E11.8 - Type 2 diabetes mellitus with unspecified complications (4) A-fib Current Visit: Yes Status: Chronic Qualifiers: Atrial fibrillation type: chronic Qualified Code(s): I48.2 - Chronic atrial fibrillation (5) COPD (chronic obstructive pulmonary disease) Current Visit: Yes Status: Chronic Qualifiers: COPD type: unspecified COPD Qualified Code(s): J44.9 - Chronic obstructive pulmonary disease, unspecified - Subjective Interval history: Mr. Jimenez is a 71 year old male patient with a history of atrial fibrillation, congestive heart failure, diabetes, hypertension and chronic venous stasis who had recently been discharged from the hospital with intravenous antibiotics for urinary tract infection with Proteus mirabilis. Blood work done at the [facility] showed that she had elevated BUN and creatinine. So he was admitted here with acute kidney injury. His renal function was monitored closely and he was treated with IV fluids. His repeat urine culture here was negative. He had completed antibiotic course prior to presentation. Possible causes for his acute kidney injury include ATN and possible interstitial nephritis with cephalosporin use. His renal function improved slowly and his creatinine continues to trend towards his normal baseline. He is clinically stable for discharge and is awaiting prior authorization for placement back to [facility]. He will continue to hold his Lasix still he gets his blood work checked in 2 days. If his renal function is back to baseline, he may resume taking his Lasix along with potassium. Morning CBC CMP ordered. Creatinine continues to improve and with IV hydration and continue the current treatment. - Constitutional Vitals: Temp Pulse Resp BP Pulse Ox 98.2 F 90 16 145/85 95 08/05/17 08:07 08/05/17 08:07 08/05/17 08:07 08/05/17 08:07 08/05/17 08:07 General appearance: Present: cooperative, A&O X 3, obese, answers questions appropriately - Head Head exam: Present: atraumatic, normocephalic - Eye Eye exam: Present: PERRL, conjuntiva pink, sclera anicteric Pupils: Present: PERRL - Neck Neck exam general surgery: Present: supple, trachea midline. Absent: lymphadenopathy - Respiratory Respiratory exam: Present: CTAB. Absent: accessory muscle use, rales, rhonchi, wheezes - Cardiovascular Cardiovascular exam: Present: RRR, +S1, +S2. Absent: diastolic murmur, gallop, rubs, systolic murmur - GI/Abdominal GI/Abdominal exam: Present: normal bowel sounds, soft, no peritoneal signs. Absent: distended, tenderness - Extremities Exam Extremities exam: Present: warm, radial pulses palpable and symmetrical. Absent : calf tenderness, cyanotic, pedal edema - Neurological Exam Neurological exam: Present: CN II-XII intact, oriented X3, no focal deficits. Absent: pronater drift, facial droop, speech deficit - Skin Skin exam: Present: dry, intact Internal Medicine: Result - Labs CBC & Chem 7: 08/05/17 03:55 08/05/17 03:55 Labs: Short CBC 08/05/17 Range/Units 03:55 WBC 5.7 (4.3-11.1) K/mcL Hgb 12.1 L (12.9-16.9) g/dL Hct 38.9 (37.5-50.1) % Plt Count 242 (140-400) K/mcL Neutrophils # 2.6 (1.6-8.9) K/mcL BMP 08/05/17 03:55 Sodium 139 Potassium 4.2 Chloride 102 Carbon Dioxide 32 H BUN 32 H D Creatinine 1.41 H Glucose 140 H Calcium 9.0 Liver Function 08/05/17 Range/Units 03:55 Total Bilirubin 0.3 (0.2-1.2) mg/dL AST 11 (5-34) Units/L ALT < 6 (0-55) Units/L Alkaline Phosphatase 97 (38-126) Units/L Albumin 2.9 L (3.5-5.0) g/dL Consult Discharge Plan - Plan Instructions: Furosemide (By mouth), Hydrocodone/Acetaminophen (By mouth), Potassium Chloride (By mouth), Urinary Tract Infection in Men (DC) Additional Instructions: Please hold Lasix and potassium tablets till you have your basic panel rechecked and you may resume taking these medications once your kidney function has returned to normal Referrals: Heidi Sanchez, WEATHER ANALYST [Advanced Practice Nurse] - 08/17/17 8:30 am Prescriptions: Furosemide [Lasix] 40 mg PO DAILY #30 tablet HYDROcodone/Acet 5/325 mg [[place] 5-325 mg] 1 tab PO Q6H PRN #14 tab PRN Reason: Pain Potassium Chloride 20 meq PO DAILY #30 tab.er.prt
[2017-08-05] MEDS: *HR* Rivaroxaban 15 MG TABLET PO SCH (17:20)
[2017-08-05] MEDS: Insulin DETEMIR 100 UNIT/ML X5UNITS SQ SCH (22:49)
[2017-08-05] MEDS: amLODIPine 5 MG TABLET PO SCH (22:49)
[2017-08-05] MEDS: Carbidopa/Levodopa 25/100 TABLET PO SCH (22:50)
[2017-08-06] MEDS: *HR* Morphine 2 MG/ML SYRINGE IVP PRN (02:35)
[2017-08-06 05:24] LABS: Basophils # 0.1 K/mcL (0.0-0.2); Basophils % 1.2 %; Eosinophils # 0.5 K/mcL (0.0-0.6); Eosinophils % 8.1 %; Hematocrit 38.1 % (37.5-50.1); Hemoglobin 11.6 g/dL (12.9-16.9); Immature Granulocytes % 0.5 % (0-4); Immature Platelets 2.9 % (1.1-6.1); Lymphocytes # 1.5 K/mcL (0.6-4.6); Lymphocytes % 26.6 %; Mean Corpuscular HGB Conc 30.4 g/dL (31.6-35.5); Mean Corpuscular Hemoglobin 26.7 pg (28.0-33.3); Mean Corpuscular Volume 87.6 fL (83.0-100.0); Mean Platelet Volume 10.7 fL (9.4-12.4); Monocytes # 0.7 K/mcL (0.0-1.3); Neutrophils # 2.9 K/mcL (1.6-8.9); Platelet Count 246 K/mcL (140-400); Red Blood Count 4.35 M/mcL (4.19-5.50); Red Cell Distribution Width 14.8 % (11.5-14.5); Segmented Neutrophils % 51.6 %
[2017-08-06 06:23] LABS: Alanine Aminotransferase < 6 Units/L (0-55); Albumin 2.8 g/dL (3.5-5.0); Albumin/Globulin Ratio 0.7 (1.1-2.2); Alkaline Phosphatase 94 Units/L (38-126); Aspartate Amino Transferase 9 Units/L (5-34); BUN/Creatinine Ratio 21 (6-26); Bilirubin,Total 0.3 mg/dL (0.2-1.2); Blood Urea Nitrogen 29 mg/dL (8-26); Calcium 8.9 mg/dL (8.6-10.8); Carbon Dioxide 31 mEq/L (19-29); Chloride 101 mEq/L (98-109); Globulin 3.9 g/dL (2.4-3.5); Glucose 133 mg/dL (70-99); Osmolality,Calculated 300 (280-300); Potassium 4.3 mEq/L (3.5-4.5); Sodium 141 mEq/L (136-145); Total Protein 6.7 g/dL (6.0-8.3); eGFR For African Americans > 60 (> 60); eGFR For Non-African Americans 52 (> 60)
[2017-08-06] MEDS: Insulin LISPRO 300 UNITS/3 ML VIAL SQ SCH ×4 (07:53→20:35)
[2017-08-06] MEDS: Lactulose Oral Soln 20 GM/30 ML UDC PO SCH ×2 (09:13→18:13)
[2017-08-06] MEDS: *HR* OxyCODONE Immed Rel 5 MG TABLET PO PRN ×2 (09:13→19:53)
[2017-08-06] MEDS: Cholecalciferol (D-3) 1,000 UNIT TABLET PO SCH (09:14)
--- NOTE | 2017-08-06 10:47 | Internal Med Progress Note ---
Date of Encounter: 08/07/17 Time of Encounter: 10:45 - Assessment and plan (1) SUNI (acute kidney injury) Current Visit: Yes Status: Acute (2) UTI (urinary tract infection) Current Visit: Yes Status: Acute Qualifiers: Urinary tract infection type: site unspecified Hematuria presence: without hematuria Qualified Code(s): N39.0 - Urinary tract infection, site not specified (3) Hypertension Current Visit: Yes Status: Chronic Qualifiers: Hypertension type: essential hypertension Qualified Code(s): I10 - Essential (primary) hypertension (4) A-fib Current Visit: Yes Status: Chronic Qualifiers: Atrial fibrillation type: chronic Qualified Code(s): I48.2 - Chronic atrial fibrillation (5) Diabetes mellitus Current Visit: Yes Status: Chronic Qualifiers: Diabetes mellitus type: type 2 Diabetes mellitus complication status: with unspecified complications Diabetes mellitus starter mechanic insulin use: without [facility] use Qualified Code(s): E11.8 - Type 2 diabetes mellitus with unspecified complications (6) COPD (chronic obstructive pulmonary disease) Current Visit: Yes Status: Chronic Qualifiers: COPD type: unspecified COPD Qualified Code(s): J44.9 - Chronic obstructive pulmonary disease, unspecified - Subjective Interval history: Mr. Jimenez is a 71 year old male patient with a history of atrial fibrillation, congestive heart failure, diabetes, hypertension and chronic venous stasis who had recently been discharged from the hospital with intravenous antibiotics for urinary tract infection with Proteus mirabilis. [facility] work done at the [facility] home showed that she had elevated BUN and creatinine. So he was admitted here with acute kidney injury. His renal function was monitored closely and he was treated with IV fluids. His repeat urine culture here was negative. He had completed antibiotic course prior to presentation. Possible causes for his acute kidney injury include ATN and possible interstitial nephritis with cephalosporin use. His renal function improved slowly and his creatinine continues to trend towards his normal baseline. His creatinine is improving slowly previously it was normal therefore I will increase IV fluid. If his renal function is back to baseline, he may resume taking his Lasix along with potassium. His blood pressure is 180+ therefore I will double his Norvasc. Morning CBC CMP ordered. Creatinine continues to improve and with IV hydration and continue the current treatment. - Constitutional Vitals: Temp Pulse Resp BP Pulse Ox 98.3 F 67 14 182/98 95 08/06/17 06:45 08/06/17 06:45 08/06/17 06:45 08/06/17 06:45 08/06/17 06:45 General appearance: Present: cooperative, A&O X 3, obese, answers questions appropriately - Head Head exam: Present: atraumatic, normocephalic - Eye Eye exam: Present: PERRL, conjuntiva pink, sclera anicteric Pupils: Present: PERRL - Neck Neck exam general surgery: Present: supple, trachea midline. Absent: lymphadenopathy - Respiratory Respiratory exam: Present: CTAB. Absent: accessory muscle use, rales, rhonchi, wheezes - Cardiovascular Cardiovascular exam: Present: RRR, +S1, +S2. Absent: diastolic murmur, gallop, rubs, systolic murmur - GI/Abdominal GI/Abdominal exam: Present: normal bowel sounds, soft, no peritoneal signs. Absent: distended, tenderness - Extremities Exam Extremities exam: Present: warm, radial pulses palpable and symmetrical. Absent : calf tenderness, cyanotic, pedal edema - Neurological Exam Neurological exam: Present: CN II-XII intact, oriented X3, no focal deficits. Absent: pronater drift, facial droop, speech deficit - Skin Skin exam: Present: dry, intact Internal Medicine: Result - Labs CBC & Chem 7: 08/07/17 04:21 08/07/17 04:21 Labs: Short CBC 08/06/17 Range/Units 04:42 WBC 5.7 (4.3-11.1) K/mcL Hgb 11.6 L (12.9-16.9) g/dL Hct 38.1 (37.5-50.1) % Plt Count 246 (140-400) K/mcL Neutrophils # 2.9 (1.6-8.9) K/mcL BMP 08/06/17 04:42 Sodium 141 Potassium 4.3 Chloride 101 Carbon Dioxide 31 H BUN 29 H Creatinine 1.36 H Glucose 133 H Calcium 8.9 Liver Function 08/06/17 Range/Units 04:42 Total Bilirubin 0.3 (0.2-1.2) mg/dL AST 9 (5-34) Units/L ALT < 6 (0-55) Units/L Alkaline Phosphatase 94 (38-126) Units/L Albumin 2.8 L (3.5-5.0) g/dL Consult Discharge Plan - Plan Instructions: Furosemide (By mouth), Urinary Tract Infection in Men (DC), Diabetes Mellitus Type 2 in Adults (DC), Chronic Hypertension (DC) Additional Instructions: Please hold Lasix and potassium tablets till you have your basic panel rechecked and you may resume taking these medications once your kidney function has returned to normal Referrals: Heidi Sanchez CNP [Advanced Practice Nurse] - 08/17/17 8:30 am Prescriptions: Furosemide [Lasix] 10 mg PO DAILY #30 tablet Lisinopril [Zestril] 5 mg PO DAILY #30 tablet
[2017-08-06] MEDS: 0.9 % Sodium Chloride 1,000 ML IVC SCH (11:58)
[2017-08-06] MEDS: *HR* Rivaroxaban 15 MG TABLET PO SCH (18:13)
[2017-08-06] MEDS: Carbidopa/Levodopa 25/100 TABLET PO SCH (19:53)
[2017-08-06] MEDS: Insulin DETEMIR 100 UNIT/ML X5UNITS SQ SCH (20:34)
[2017-08-07] MEDS: 0.9 % Sodium Chloride 1,000 ML IVC SCH ×2 (00:11→08:29)
[2017-08-07] MEDS: *HR* OxyCODONE Immed Rel 5 MG TABLET PO PRN ×2 (04:51→13:00)
[2017-08-07 05:17] LABS: Basophils # 0.1 K/mcL (0.0-0.2); Basophils % 1.3 %; Eosinophils # 0.4 K/mcL (0.0-0.6); Eosinophils % 7.1 %; Hematocrit 37.5 % (37.5-50.1); Hemoglobin 11.2 g/dL (12.9-16.9); Immature Granulocytes % 0.4 % (0-4); Lymphocytes # 1.7 K/mcL (0.6-4.6); Lymphocytes % 30.2 %; Mean Corpuscular HGB Conc 29.9 g/dL (31.6-35.5); Mean Corpuscular Hemoglobin 26.8 pg (28.0-33.3); Mean Corpuscular Volume 89.7 fL (83.0-100.0); Mean Platelet Volume 10.8 fL (9.4-12.4); Monocytes # 0.7 K/mcL (0.0-1.3); Monocytes % 12.5 %; Neutrophils # 2.7 K/mcL (1.6-8.9); Platelet Count 242 K/mcL (140-400); Red Blood Count 4.18 M/mcL (4.19-5.50); Red Cell Distribution Width 14.9 % (11.5-14.5); Segmented Neutrophils % 48.5 %
[2017-08-07 05:31] LABS: Albumin 2.7 g/dL (3.5-5.0); Albumin/Globulin Ratio 0.7 (1.1-2.2); Alkaline Phosphatase 98 Units/L (38-126); Aspartate Amino Transferase 9 Units/L (5-34); BUN/Creatinine Ratio 26 (6-26); Bilirubin,Total 0.3 mg/dL (0.2-1.2); Blood Urea Nitrogen 29 mg/dL (8-26); Calcium 8.8 mg/dL (8.6-10.8); Carbon Dioxide 33 mEq/L (19-29); Chloride 103 mEq/L (98-109); Globulin 3.9 g/dL (2.4-3.5); Glucose 147 mg/dL (70-99); Osmolality,Calculated 301 (280-300); Potassium 4.2 mEq/L (3.5-4.5); Sodium 141 mEq/L (136-145); Total Protein 6.6 g/dL (6.0-8.3); eGFR For African Americans > 60 (> 60); eGFR For Non-African Americans > 60 (> 60)
[2017-08-07 05:33] LABS: Alanine Aminotransferase < 6 Units/L (0-55)
[2017-08-07] MEDS: Insulin LISPRO 300 UNITS/3 ML VIAL SQ SCH ×2 (08:20→13:00)
[2017-08-07] MEDS: Cholecalciferol (D-3) 1,000 UNIT TABLET PO SCH (08:30)
[2017-08-07] MEDS: Lactulose Oral Soln 20 GM/30 ML UDC PO SCH (08:30)
[2017-08-07] MEDS ORDERED: amLODIPine 5 MG TABLET PO SCH (09:00)
[2017-08-07 11:22] VITALS: BP 144/87
--- NOTE | 2017-08-07 13:55 | Discharge Summary ---
Date of Encounter: 08/07/17 Time of Encounter: 13:50 - Discharge Diagnosis (1) SUNI (acute kidney injury) Priority: Primary Status: Acute (2) UTI (urinary tract infection) Priority: Secondary Status: Acute Qualifiers: Urinary tract infection type: site unspecified Hematuria presence: without hematuria Qualified Code(s): N39.0 - Urinary tract infection, site not specified (3) Hypertension Priority: Secondary Status: Chronic Qualifiers: Hypertension type: essential hypertension Qualified Code(s): I10 - Essential (primary) hypertension (4) A-fib Priority: Secondary Status: Chronic Qualifiers: Atrial fibrillation type: chronic Qualified Code(s): I48.2 - Chronic atrial fibrillation (5) Diabetes mellitus Priority: Secondary Status: Chronic Qualifiers: Diabetes mellitus type: type 2 Diabetes mellitus complication status: with unspecified complications Diabetes mellitus alf insulin use: without long term care administrator use Qualified Code(s): E11.8 - Type 2 diabetes mellitus with unspecified complications (6) COPD (chronic obstructive pulmonary disease) Priority: Secondary Status: Chronic Qualifiers: COPD type: unspecified COPD Qualified Code(s): J44.9 - Chronic obstructive pulmonary disease, unspecified - Discharge Medications Prescriptions: Furosemide [Lasix] 10 mg PO DAILY #30 tablet Lisinopril [Zestril] 5 mg PO DAILY #30 tablet Home Medications: Labetalol HCl 300 mg PO 0700,1200,2100 10/25/16 [History] Pantoprazole Sodium [Protonix] 40 mg PO QA 10/25/16 [History] Rivaroxaban [Xarelto] 20 mg PO QA 10/25/16 [History] SitaGLIPtin [Januvia] 100 mg PO QA 10/25/16 [History] Carbidopa/Levodopa [Carbidopa-Levodopa 25-100 Tab] 1 tab PO HS 07/09/17 [History ] Cholecalciferol (Vitamin D3) [Vitamin D3] 5,000 unit PO QAM 07/09/17 [History] Metformin HCl [Metformin HCl ER] 1,000 mg PO 0700,2100 07/09/17 [History] Ammonium Lactate [[place]-Hydrolac] 1 appl TP 0900,199907/29/17 [History] Lactulose 20 gm PO 0900,1700 07/29/17 [History] Nystatin POWDER [Nystop] 1 appl TP 0900,199907/29/17 [History] Polyethylene Glycol 3350 [MiraLAX] 17 gm PO QAM 07/29/17 [History] Acetaminophen [Tylenol] 650 mg PO Q6HR PRN tab 08/07/17 [Rx] Furosemide [Lasix] 10 mg PO DAILY #30 tablet 08/07/17 [Rx] Lisinopril [Zestril] 5 mg PO DAILY #30 tablet 08/07/17 [Rx] amLODIPine [Norvasc] 10 mg PO DAILY tab 08/07/17 [Rx] Allergies/Adverse Reactions: 3 Allergy/AdvReac Type Severity Reaction Status Date / Time No Known Allergies Allergy Verified 09/05/15 12:17 Date of admission: 07/29/17 18:10 Primary care physician: Bulmaro Negro MD Consults: 07/30/17 09:32 Consult to Occupational Therapy [CONS] Routine Comment: Evaluate, develop and implement POC Reason for Consult: eval to return to [facility] Consult to Physical Therapy [CONS] Routine Comment: Evaluate, develop and implement POC Reason for Consult: eval to return to [facility] Consult to Decision Unit Rn [CONS] Routine Reason for SW Consult: returning to [facility] 07/30/17 12:55 Consult to Urology [CONS] Routine Consulting Provider: Urology Snehal Reason for Consult: Chronic indwelling tomlinson catheter Time Notified: 12:55 Call Completed: Yes Discharging clinician: Cindy Tao Anticipated date of discharge: 08/07/17 - Patient Status Disposition: Transfer SNF Condition: Fair - Discharge Instructions Instructions: Furosemide (By mouth), Urinary Tract Infection in Men (DC), Diabetes Mellitus Type 2 in Adults (DC), Chronic Hypertension (DC) Follow Up With: Heidi Sanchez CNP [Advanced Practice Nurse] - 08/17/17 8:30 am Additional Instructions: Please hold Lasix and potassium tablets till you have your basic panel rechecked and you may resume taking these medications once your kidney function has returned to normal - Diet and Activity Activity: as per physical therapy Diet: advance to your usual diet, diabetic diet, low fat, low cholesterol, low salt diet Hospital course: Mr. Jimenez is a 71 year old male patient with a history of atrial fibrillation, congestive heart failure, diabetes, hypertension and chronic venous stasis who had recently been discharged from the hospital with intravenous antibiotics for urinary tract infection with Proteus mirabilis. [facility] showed that he had elevated BUN and creatinine. So he was admitted here with acute kidney injury. His renal function was monitored closely and he was treated with IV fluids. His repeat urine culture here was negative. He had completed antibiotic course prior to presentation. Possible causes for his acute kidney injury include ATN and possible interstitial nephritis with cephalosporin use. His renal function improved slowly and now his creatinine is normal. he may resume taking his Lasix along with potassium as well as his diabetic medication.. We have increased his Norvasc to 10 mg daily. I have also added lisinopril 5 mg daily. shelter doctors should continue to monitor his renal function and blood pressure. - Time Spent with Patient Total time spent providing and/or coordinating discharge services: Greater than 30 minutes - Constitutional Vitals: Temp Pulse Resp BP Pulse Ox 97.7 F 55 16 144/87 93 08/07/17 07:45 08/07/17 07:45 08/07/17 07:45 08/07/17 11:21 08/07/17 08:20 General appearance: Present: cooperative, A&O X 3, obese, answers questions appropriately - Head Head exam: Present: atraumatic, normocephalic - Eye Eye exam: Present: PERRL, conjuntiva pink, sclera anicteric Pupils: Present: PERRL - Neck Neck exam general surgery: Present: supple, trachea midline. Absent: lymphadenopathy - Respiratory Respiratory exam: Present: CTAB. Absent: accessory muscle use, rales, rhonchi, wheezes - Cardiovascular Cardiovascular exam: Present: RRR, +S1, +S2. Absent: diastolic murmur, gallop, rubs, systolic murmur - GI/Abdominal GI/Abdominal exam: Present: normal bowel sounds, soft, no peritoneal signs. Absent: distended, tenderness - Extremities Exam Extremities exam: Present: warm, radial pulses palpable and symmetrical. Absent : calf tenderness, cyanotic, pedal edema - Neurological Exam Neurological exam: Present: CN II-XII intact, oriented X3, no focal deficits. Absent: pronater drift, facial droop, speech deficit - Skin Skin exam: Present: dry, intact
--- NOTE | 2017-08-07 14:05 | Physician Discharge Referral ---
ExtendedCare Referral Info Transfer To: snf Provider in Charge: [facility] Provider in Charge after Transfer: PCP - Diagnosis (1) SUNI (acute kidney injury) Status: Acute (2) UTI (urinary tract infection) Status: Acute (3) Hypertension Status: Chronic (4) A-fib Status: Chronic (5) Diabetes mellitus Status: Chronic (6) COPD (chronic obstructive pulmonary disease) Status: Chronic - Transfer Medications Prescriptions: Furosemide [Lasix] 10 mg PO DAILY #30 tablet Lisinopril [Zestril] 5 mg PO DAILY #30 tablet Home Medications: Labetalol HCl 300 mg PO 0700,1200,2100 10/25/16 [History] Pantoprazole Sodium [Protonix] 40 mg PO QAM 10/25/16 [History] Rivaroxaban [Xarelto] 20 mg PO QAM 10/25/16 [History] SitaGLIPtin [Januvia] 100 mg PO QAM 10/25/16 [History] Carbidopa/Levodopa [Carbidopa-Levodopa 25-100 Tab] 1 tab PO HS 07/09/17 [History ] Cholecalciferol (Vitamin D3) [Vitamin D3] 5,000 unit PO QAM 07/09/17 [History] Metformin HCl [Metformin HCl ER] 1,000 mg PO 0700,2100 07/09/17 [History] Ammonium Lactate [[place]ain[place]-Hydrolac] 1 appl TP 0900,199907/29/17 [History] Lactulose 20 gm PO 0900,1700 07/29/17 [History] Nystatin POWDER [Nystop] 1 appl TP 0900,199907/29/17 [History] Polyethylene Glycol 3350 [MiraLAX] 17 gm PO QAM 07/29/17 [History] Acetaminophen [Tylenol] 650 mg PO Q6HR PRN tab 08/07/17 [Rx] Furosemide [Lasix] 10 mg PO DAILY #30 tablet 08/07/17 [Rx] Lisinopril [Zestril] 5 mg PO DAILY #30 tablet 08/07/17 [Rx] amLODIPine [Norvasc] 10 mg PO DAILY tab 08/07/17 [Rx] Allergies/Adverse Reactions: 3 Allergy/AdvReac Type Severity Reaction Status Date / Time No Known Allergies Allergy Verified 09/05/15 12:17 - Respiratory Orders Smoking Cessation: Smoking cessation has been advised. For more information, call the [place] Tobacco Quit Line at 7-121-HDZQ-NOW. - Lab Orders Lab Orders: Other (include drug levels w/frequency) (Please check BMP twice weekly and forward and follow the results to the admitting physician at [facility] as well as the family doctor and associate application developer to [facility]) - Mobility Orders Ambulate - Rehabiliation Orders Rehab Potential: Fair Rehab Orders: ROM Exercises, Evaluation for Physical Therapy, Evaluation for Occupational Therapy - Treatments Skin tear care topically daily PRN per policy, May check for fecal impaction rectally daily PRN, Fleet enema rectally every other day PRN cleansing purposes - Diet Orders No Concentrated Sweets, Cardiac CERTIFICATION: I certify that the transfer of the above named patient to an Extended Care Facility is necessary for the continuing treatment of the diagnosis listed. The above information is true and accurate reflection of patient's current condition. Confidential - Redisclosure prohibited without a patient's written consent.
== END 2017-08-07 17:50 | DRG 683 ==
LOC: EMEROO 11:07 → 3BNU 11:07 → SUATTDRO 18:10
PROVIDERS: ADMIT Internal Medicine; ATTEND Internal Medicine

== ENCOUNTER 2018-01-15 08:53 | Inpatient (IN) ==
[2018-01-15] MEDS ORDERED: 0.9 % Sodium Chloride 1,000 ML IVC ONE ×3 (08:56→11:33)
--- NOTE | 2018-01-15 08:59 | Emergency Department Note ---
Disposition Clinical Impression: Sepsis, UTI (urinary tract infection), Esophagitis Disposition: Admitted As Inpatient Condition: Serious General Adult HPI - General Chief complaint: ED Fever Stated complaint: feverUTI/tx w/ATB-2 doses/last night/pain all over Time Seen by Provider: 01/15/18 08:57 Source: patient Mode of arrival: ambulatory Limitations: no limitations Nursing Notes Reviewed: Yes Vital Signs Reviewed: Yes - Related Data Home Medications Medication Instructions Recorded Confirmed Labetalol HCl 300 mg PO 0700,1200,2100 10/25/16 01/15/18 Pantoprazole Sodium [Protonix] 40 mg PO QAM 10/25/16 01/15/18 Rivaroxaban [Xarelto] 20 mg PO QAM 10/25/16 01/15/18 Carbidopa/Levodopa 1 tab PO HS 07/09/17 01/15/18 [Carbidopa-Levodopa 25-100 Tab] Cholecalciferol (Vitamin D3) 5,000 unit PO QAM 07/09/17 01/15/18 [Vitamin D3] Furosemide [Lasix] 40 mg PO DAILY 01/15/18 01/15/18 Lisinopril [Zestril] 20 mg PO DAILY 01/15/18 01/15/18 Oxybutynin Chloride [Ditropan Xl] 15 mg PO DAILY 01/15/18 01/15/18 Potassium Chloride 20 mg PO DAILY 01/15/18 01/15/18 Allergies Allergy/AdvReac Type Severity Reaction Status Date / Time No Known Allergies Allergy Verified 01/15/18 08:57 Past Medical History - Past Medical History Medical history: Reports: atrial fibrillation, CHF, diabetes, GERD, hypertension , venous stasis Surgical history: Reports: appendectomy, herniorrhaphy, knee replacement ( Bilateral), orthopedic, other Psychiatric history: Reports: no psych history - Social History Smoking Status: Never smoker Smokeless Tobacco Status: No Alcohol use: Reports: none Drug use: Reports: none Course Vital Signs Temperature 99.2 F 01/15/18 08:55 Pulse Rate 100 01/15/18 08:55 Respiratory Rate 20 01/15/18 08:55 Blood Pressure 118/77 01/15/18 08:55 O2 Sat by Pulse Oximetry 96 01/15/18 08:55 Temperature 100.0 F H 01/15/18 17:08 Pulse Rate 99 01/15/18 17:08 Respiratory Rate 26 01/15/18 17:08 Blood Pressure 170/101 01/15/18 17:08 O2 Sat by Pulse Oximetry 95 01/15/18 17:08 Oxygen Delivery Oxygen Delivery Room Air Medical Decision Making - Medical Records Medical records reviewed: Yes I reviewed the patient's medical records. - Lab Data Lab results reviewed: Yes I reviewed the patient's lab results. Result diagrams: 01/15/18 09:11 01/15/18 09:11 Lab Results 01/15/18 01/15/18 01/15/18 Range/Units 09:11 09:11 09:11 WBC 11.3 H (4.3-11.1) K/mcL RBC 3.79 L (4.19-5.50) M/mcL Hgb 10.8 L (12.9-16.9) g/dL Hct 34.4 L (37.5-50.1) % MCV 90.8 (83.0-100.0) fL MCH 28.5 (28.0-33.3) pg MCHC 31.4 L (31.6-35.5) g/dL RDW 13.9 (11.5-14.5) % Plt Count 269 (140-400) K/mcL MPV 10.2 (9.4-12.4) fL Immature Gran % 0.3 (0-4) % Seg Neutrophils % 84.6 % Lymphocytes % 5.2 % Monocytes % 7.8 % Eosinophils % 1.7 % Basophils % 0.4 % Neutrophils # 9.6 H (1.6-8.9) K/mcL Lymphocytes # 0.6 (0.6-4.6) K/mcL Monocytes # 0.9 (0.0-1.3) K/mcL Eosinophils # 0.2 (0.0-0.6) K/mcL Basophils # 0.0 (0.0-0.2) K/mcL PT 17.8 H (9.4-12.1) Seconds INR 1.6 APTT 35.7 (26.0-36.0) Seconds Sodium 134 L (136-145) mEq/L Potassium 3.8 (3.5-5.1) mEq/L Chloride 96 L (98-107) mEq/L Carbon Dioxide 32 H (23-29) mEq/L BUN 16 (8-23) mg/dL Creatinine 0.98 (0.70-1.30) mg/dL Est GFR ( Amer) > 60 (> 60) Est GFR (Non-Af Amer) > 60 (> 60) BUN/Creatinine Ratio 16 (6-26) Glucose 190 H (70-105) mg/dL Calculated Osmolality 284 (280-300) Lactic Acid (0.5-2.2) mmol/L Calcium 8.7 (8.6-10.3) mg/dL Phosphorus 2.4 L (2.7-4.5) mg/dL Magnesium 1.8 (1.6-2.6) mg/dL Total Bilirubin 0.5 (0.3-1.0) mg/dL Direct Bilirubin 0.2 (0.0-0.2) mg/dL Indirect Bilirubin 0.3 (0.0-1.2) mg/dL AST 10 L (13-39) Units/L ALT 9 (7-52) Units/L Alkaline Phosphatase 88 (34-104) Units/L Troponin I (< 0.04) ng/mL Serum Total Protein 6.7 (6.4-8.9) g/dL Albumin 3.3 L (3.5-5.7) g/dL Globulin 3.4 (2.4-3.5) g/dL Albumin/Globulin Ratio 1.0 L (1.1-2.2) Urine Color (Yellow) Urine Clarity (Clear) Urine pH (5.0-8.0) pH Units Ur Specific [place] (1.010-1.025) Urine Protein (Neg-Trace) mg/dL Urine Glucose (UA) (Normal) mg/dL Urine Ketones (Negative) mg/dL Urine Blood (Negative) Urine Nitrite (Negative) Urine Bilirubin (Negative) Urine Urobilinogen (Normal) mg/dL Ur Leukocyte Esterase (Negative) Urine Microscopic RBC (0-3) per hpf Urine Microscopic WBC (0-3) per hpf Ur Squamous Epith Cells (None-Few) per lpf Urine Bacteria (None-Few) per hpf Hyaline Casts (None-Few) per lpf Urine Yeast (None Seen) per hpf Ur Culture Indicated? (NO) 01/15/18 01/15/18 01/15/18 Range/Units 09:11 09:11 10:30 WBC (4.3-11.1) K/mcL RBC (4.19-5.50) M/mcL Hgb (12.9-16.9) g/dL Hct (37.5-50.1) % MCV (83.0-100.0) fL MCH (28.0-33.3) pg MCHC (31.6-35.5) g/dL RDW (11.5-14.5) % Plt Count (140-400) K/mcL MPV (9.4-12.4) fL Immature Gran % (0-4) % Seg Neutrophils % % Lymphocytes % % Monocytes % % Eosinophils % % Basophils % % Neutrophils # (1.6-8.9) K/mcL Lymphocytes # (0.6-4.6) K/mcL Monocytes # (0.0-1.3) K/mcL Eosinophils # (0.0-0.6) K/mcL Basophils # (0.0-0.2) K/mcL PT (9.4-12.1) Seconds INR APTT (26.0-36.0) Seconds Sodium (136-145) mEq/L Potassium (3.5-5.1) mEq/L Chloride (98-107) mEq/L Carbon Dioxide (23-29) mEq/L BUN (8-23) mg/dL Creatinine (0.70-1.30) mg/dL Est GFR ( Amer) (> 60) Est GFR (Non-Af Amer) (> 60) BUN/Creatinine Ratio (6-26) Glucose (70-105) mg/dL Calculated Osmolality (280-300) Lactic Acid 0.7 (0.5-2.2) mmol/L Calcium (8.6-10.3) mg/dL Phosphorus (2.7-4.5) mg/dL Magnesium (1.6-2.6) mg/dL Total Bilirubin (0.3-1.0) mg/dL Direct Bilirubin (0.0-0.2) mg/dL Indirect Bilirubin (0.0-1.2) mg/dL AST (13-39) Units/L ALT (7-52) Units/L Alkaline Phosphatase (34-104) Units/L Troponin I < 0.03 (< 0.04) ng/mL Serum Total Protein (6.4-8.9) g/dL Albumin (3.5-5.7) g/dL Globulin (2.4-3.5) g/dL Albumin/Globulin Ratio (1.1-2.2) Urine Color Yellow (Yellow) Urine Clarity Cloudy A (Clear) Urine pH 7.0 (5.0-8.0) pH Units Ur Specific [place] 1.012 (1.010-1.025) Urine Protein 100 H (Neg-Trace) mg/dL Urine Glucose (UA) Normal (Normal) mg/dL Urine Ketones Negative (Negative) mg/dL Urine Blood Large H (Negative) Urine Nitrite Negative (Negative) Urine Bilirubin Negative (Negative) Urine Urobilinogen 2.0 H (Normal) mg/dL Ur Leukocyte Esterase Large H (Negative) Urine Microscopic RBC 50-100 H (0-3) per hpf Urine Microscopic WBC TNTC H (0-3) per hpf Ur Squamous Epith Cells Moderate H (None-Few) per lpf Urine Bacteria Moderate H (None-Few) per hpf Hyaline Casts None Seen (None-Few) per lpf Urine Yeast Moderate H (None Seen) per hpf Ur Culture Indicated? YES A (NO) - Radiology Data Radiology results reviewed: Yes I reviewed the patient's radiology results. - EKG Data EKG #1 EKG attestation: Yes I reviewed and interpreted this EKG. EKG shows normal: sinus rhythm Rate: tachycardia (125 bpm QRS [address] segment elevations or depressions.) Critical Care Time Critical Care Time: Yes Total Critical Care Time: 30 Attestation: The high probability of a clinically significant, sudden or life threatening deterioration of the [] system(s) required my full and direct attention, intervention and personal management. The aggregate critical care time was [] minutes. This time is in addition to time spent performing reported procedures but includes the following: [] Data Review and interpretation [] Patient assessment and monitoring of vital signs [] Documentation [] Medication orders and management Attestation Statement - Attestation Attestation: I examined this patient and my medical decision-making was reviewed with the Resident Physician. I agree with the documented findings, disposition and treatment plan as described except to the extent set forth below. [id number] time provided Patient arrives by EMS complaining of diffuse pain. He states he was recently diagnosed with the UTI. He was febrile prehospital. He is alert and oriented and in no acute distress at the time of my exam. He does have symmetric swelling of his bilateral lower extremities with increased hyperemia which appears chronic 11:33: Patient meets SIRS criteria due to tachycardia and prehospital fever. He has a UTI meeting sepsis criteria. He does not meet criteria for septic shock.
[2018-01-15 09:33] LABS: Basophils % 0.4 %; Eosinophils # 0.2 K/mcL (0.0-0.6); Eosinophils % 1.7 %; Hematocrit 34.4 % (37.5-50.1); Hemoglobin 10.8 g/dL (12.9-16.9); Immature Granulocytes % 0.3 % (0-4); Lymphocytes # 0.6 K/mcL (0.6-4.6); Lymphocytes % 5.2 %; Mean Corpuscular HGB Conc 31.4 g/dL (31.6-35.5); Mean Corpuscular Hemoglobin 28.5 pg (28.0-33.3); Mean Corpuscular Volume 90.8 fL (83.0-100.0); Mean Platelet Volume 10.2 fL (9.4-12.4); Monocytes # 0.9 K/mcL (0.0-1.3); Monocytes % 7.8 %; Neutrophils # 9.6 K/mcL (1.6-8.9); Platelet Count 269 K/mcL (140-400); Red Blood Count 3.79 M/mcL (4.19-5.50); Red Cell Distribution Width 13.9 % (11.5-14.5); Segmented Neutrophils % 84.6 %
[2018-01-15 09:38] LABS: INR 1.6; Prothrombin Time 17.8 Seconds (9.4-12.1)
[2018-01-15 09:41] LABS: Activated Partial Thrombo Time 35.7 Seconds (26.0-36.0)
[2018-01-15 09:49] LABS: Alanine Aminotransferase 9 Units/L (7-52); Albumin 3.3 g/dL (3.5-5.7); Alkaline Phosphatase 88 Units/L (34-104); Aspartate Amino Transferase 10 Units/L (13-39); BUN/Creatinine Ratio 16 (6-26); Bilirubin,Direct 0.2 mg/dL (0.0-0.2); Bilirubin,Indirect 0.3 mg/dL (0.0-1.2); Bilirubin,Total 0.5 mg/dL (0.3-1.0); Blood Urea Nitrogen 16 mg/dL (8-23); Calcium 8.7 mg/dL (8.6-10.3); Carbon Dioxide 32 mEq/L (23-29); Chloride 96 mEq/L (98-107); Globulin 3.4 g/dL (2.4-3.5); Glucose 190 mg/dL (70-105); Magnesium 1.8 mg/dL (1.6-2.6); Osmolality,Calculated 284 (280-300); Phosphorous 2.4 mg/dL (2.7-4.5); Potassium 3.8 mEq/L (3.5-5.1); Sodium 134 mEq/L (136-145); Total Protein 6.7 g/dL (6.4-8.9); eGFR For African Americans > 60 (> 60); eGFR For Non-African Americans > 60 (> 60)
[2018-01-15] MEDS ORDERED: *HR* OxyCODONE/APAP 7.5/325 TABLET PO STA (10:17)
[2018-01-15] MEDS ORDERED: *HR* FentaNYL (PF) 100 MCG/2 ML VIAL IVP ONE (10:17)
[2018-01-15] MEDS ORDERED: Ondansetron 4 MG/2 ML VIAL IVP ONE (10:17)
--- NOTE | 2018-01-15 10:40 | Emergency Department Note ---
Disposition Clinical Impression: Esophagitis Sepsis Qualifiers: Sepsis type: sepsis due to unspecified organism Qualified Code(s): A41.9 - Sepsis, unspecified organism UTI (urinary tract infection) Qualifiers: Urinary tract infection type: site unspecified Hematuria presence: without hematuria Qualified Code(s): N39.0 - Urinary tract infection, site not specified Disposition: Admitted As Inpatient Condition: Serious Time of Disposition: 12:26 General Adult HPI - General Chief complaint: ED Fever Stated complaint: feverUTI/tx w/ATB-2 doses/last night/pain all over Time Seen by Provider: 01/15/18 08:57 Source: patient Mode of arrival: ambulatory Limitations: no limitations Nursing Notes Reviewed: Yes Vital Signs Reviewed: Yes - History of Present Illness HPI Narrative: 72-year-old male history of CHF, A. fib, peripheral edema, CAD, presents complaining of lower abdominal pain, dysuria, he is recently diagnosed and started on antibiotics yesterday. Patient is a history of multiple urinary tract infections and chronic Tomlinson catheter. The patient reports he is most be evaluated for surgery for right hip replacement this was happening the next couple of days. Patient's had worsening dysuria. Trouble urinating. Temperature of 102 at home but recently took Tylenol. Onset (ago): minute(s) Radiation: back, abdomen Pain Scale: 9 Quality: aching Consistency: constant Improves with: nothing Worsens with: nothing - Related Data Home Medications Medication Instructions Recorded Confirmed Labetalol HCl 300 mg PO 0700,1200,2100 10/25/16 01/15/18 Pantoprazole Sodium [Protonix] 40 mg PO QAM 10/25/16 01/15/18 Rivaroxaban [Xarelto] 20 mg PO QAM 10/25/16 01/15/18 Carbidopa/Levodopa 1 tab PO HS 07/09/17 01/15/18 [Carbidopa-Levodopa 25-100 Tab] Cholecalciferol (Vitamin D3) 5,000 unit PO QAM 07/09/17 01/15/18 [Vitamin D3] Furosemide [Lasix] 40 mg PO DAILY 01/15/18 01/15/18 Lisinopril [Zestril] 20 mg PO DAILY 01/15/18 01/15/18 Oxybutynin Chloride [Ditropan Xl] 15 mg PO DAILY 01/15/18 01/15/18 Potassium Chloride 20 mg PO DAILY 01/15/18 01/15/18 Allergies Allergy/AdvReac Type Severity Reaction Status Date / Time No Known Allergies Allergy Verified 01/15/18 08:57 All systems ED: reviewed and negative except as stated. Review of Systems: As Per HPI Constitutional: Reports: fever (102 at home), chills ENT ED: Denies: ear pain Cardiovascular: Denies: chest pain Respiratory: Denies: cough, dyspnea Gastrointestinal: Reports: as per HPI, abdominal pain, nausea Genitourinary: Denies: as per HPI Musculoskeletal: Reports: as per HPI, back pain, arthralgia Neurological: Denies: headache Past Medical History - Past Medical History Attestation: Yes The following information was validated with the patient. Source: patient Medical history: Reports: atrial fibrillation, CHF, diabetes, GERD, hypertension , venous stasis Surgical history: Reports: appendectomy, herniorrhaphy, knee replacement ( Bilateral), orthopedic, other Psychiatric history: Reports: no psych history - Social History Smoking Status: Never smoker Smokeless Tobacco Status: No Alcohol use: Reports: none Drug use: Reports: none Physical Exam Constitutional: Tachycardic, obese elderly male in mild distress. HEENT: NCAT, sclera anicteric Neck: normal inspection, neck is supple, trachea midline Resp: normal chest inspection, limited secondary to habitus, diminished at the bases, no resp distress CV: RRR, no m/g/r +3 pitting edema bilateral lower extremities GI: normal inspection, Soft, NTND, no hepatosplenomegaly, BS x 4 quadrants, negative Lind's Sign, no tenderness at McBurney' point, Negative Rovsing's ; tomlinson with cloudy urine Back: normal inspection, negative CVA bilaterally, no tenderness to palpation Neuro: A&O3, no gross motor or sensory deficits bilaterally MSK: normal inspection, bilateral UE and LE with normal ROM Skin: Venous stasis dermatitis bilaterally skin blanching purple skin - General Limitations: no limitations General appearance: alert Course Course Narrative: 72-year-old male with concern for UTI, full septic workup ordered, patient also has evidence of volume overload but he is currently in uric is fully cloudy fluid, plan is for Tomlinson replacement urinalysis CBC BMP, lactate blood cultures. Chest x-ray CT of the pelvis and abdomen given mild abdominal pain but no distention or guarding on exam. - Reevaluation(s) Reevaluation #1: Patient is not evidence of UTI meets SIRS criteria with tachycardia and tachypnea, given this we will start on cefepime the hospitalist for condition, admitted to Dr. Aly the patient was fluid resuscitated in the emergency department, his CT scan showed evidence of esophagitis, lymphadenopathy, possible cystitis, we will treat for sepsis, no evidence of severe sepsis or septic shock, normal lactate. Patient in the hospital service. Time: 11:39 Vital Signs Temperature 99.2 F 01/15/18 08:55 Pulse Rate 100 01/15/18 08:55 Respiratory Rate 20 01/15/18 08:55 Blood Pressure 118/77 01/15/18 08:55 O2 Sat by Pulse Oximetry 96 01/15/18 08:55 Temperature 99.2 F 01/15/18 08:55 Pulse Rate 102 01/15/18 11:37 Respiratory Rate 24 01/15/18 11:37 Blood Pressure 148/86 01/15/18 11:37 O2 Sat by Pulse Oximetry 92 01/15/18 11:40 Oxygen Delivery Oxygen Delivery Room Air Medical Decision Making - Medical Records Medical records reviewed: Yes I reviewed the patient's medical records. - Lab Data Lab results reviewed: Yes I reviewed the patient's lab results. Result diagrams: 01/15/18 09:11 01/15/18 09:11 Lab Results 01/15/18 01/15/18 01/15/18 Range/Units 09:11 09:11 09:11 WBC 11.3 H (4.3-11.1) K/mcL RBC 3.79 L (4.19-5.50) M/mcL Hgb 10.8 L (12.9-16.9) g/dL Hct 34.4 L (37.5-50.1) % MCV 90.8 (83.0-100.0) fL MCH 28.5 (28.0-33.3) pg MCHC 31.4 L (31.6-35.5) g/dL RDW 13.9 (11.5-14.5) % Plt Count 269 (140-400) K/mcL MPV 10.2 (9.4-12.4) fL Immature Gran % 0.3 (0-4) % Seg Neutrophils % 84.6 % Lymphocytes % 5.2 % Monocytes % 7.8 % Eosinophils % 1.7 % Basophils % 0.4 % Neutrophils # 9.6 H (1.6-8.9) K/mcL Lymphocytes # 0.6 (0.6-4.6) K/mcL Monocytes # 0.9 (0.0-1.3) K/mcL Eosinophils # 0.2 (0.0-0.6) K/mcL Basophils # 0.0 (0.0-0.2) K/mcL PT 17.8 H (9.4-12.1) Seconds INR 1.6 APTT 35.7 (26.0-36.0) Seconds Sodium 134 L (136-145) mEq/L Potassium 3.8 (3.5-5.1) mEq/L Chloride 96 L (98-107) mEq/L Carbon Dioxide 32 H (23-29) mEq/L BUN 16 (8-23) mg/dL Creatinine 0.98 (0.70-1.30) mg/dL Est GFR ( Amer) > 60 (> 60) Est GFR (Non-Af Amer) > 60 (> 60) BUN/Creatinine Ratio 16 (6-26) Glucose 190 H (70-105) mg/dL Calculated Osmolality 284 (280-300) Lactic Acid (0.5-2.2) mmol/L Calcium 8.7 (8.6-10.3) mg/dL Phosphorus 2.4 L (2.7-4.5) mg/dL Magnesium 1.8 (1.6-2.6) mg/dL Total Bilirubin 0.5 (0.3-1.0) mg/dL Direct Bilirubin 0.2 (0.0-0.2) mg/dL Indirect Bilirubin 0.3 (0.0-1.2) mg/dL AST 10 L (13-39) Units/L ALT 9 (7-52) Units/L Alkaline Phosphatase 88 (34-104) Units/L Troponin I (< 0.04) ng/mL Serum Total Protein 6.7 (6.4-8.9) g/dL Albumin 3.3 L (3.5-5.7) g/dL Globulin 3.4 (2.4-3.5) g/dL Albumin/Globulin Ratio 1.0 L (1.1-2.2) Urine Color (Yellow) Urine Clarity (Clear) Urine pH (5.0-8.0) pH Units Ur Specific [place] (1.010-1.025) Urine Protein (Neg-Trace) mg/dL Urine Glucose (UA) (Normal) mg/dL Urine Ketones (Negative) mg/dL Urine Blood (Negative) Urine Nitrite (Negative) Urine Bilirubin (Negative) Urine Urobilinogen (Normal) mg/dL Ur Leukocyte Esterase (Negative) Urine Microscopic RBC (0-3) per hpf Urine Microscopic WBC (0-3) per hpf Ur Squamous Epith Cells (None-Few) per lpf Urine Bacteria (None-Few) per hpf Hyaline Casts (None-Few) per lpf Urine Yeast (None Seen) per hpf Ur Culture Indicated? (NO) 01/15/18 01/15/18 01/15/18 Range/Units 09:11 09:11 10:30 WBC (4.3-11.1) K/mcL RBC (4.19-5.50) M/mcL Hgb (12.9-16.9) g/dL Hct (37.5-50.1) % MCV (83.0-100.0) fL MCH (28.0-33.3) pg MCHC (31.6-35.5) g/dL RDW (11.5-14.5) % Plt Count (140-400) K/mcL MPV (9.4-12.4) fL Immature Gran % (0-4) % Seg Neutrophils % % Lymphocytes % % Monocytes % % Eosinophils % % Basophils % % Neutrophils # (1.6-8.9) K/mcL Lymphocytes # (0.6-4.6) K/mcL Monocytes # (0.0-1.3) K/mcL Eosinophils # (0.0-0.6) K/mcL Basophils # (0.0-0.2) K/mcL PT (9.4-12.1) Seconds INR APTT (26.0-36.0) Seconds Sodium (136-145) mEq/L Potassium (3.5-5.1) mEq/L Chloride (98-107) mEq/L Carbon Dioxide (23-29) mEq/L BUN (8-23) mg/dL Creatinine (0.70-1.30) mg/dL Est GFR ( Amer) (> 60) Est GFR (Non-Af Amer) (> 60) BUN/Creatinine Ratio (6-26) Glucose (70-105) mg/dL Calculated Osmolality (280-300) Lactic Acid 0.7 (0.5-2.2) mmol/L Calcium (8.6-10.3) mg/dL Phosphorus (2.7-4.5) mg/dL Magnesium (1.6-2.6) mg/dL Total Bilirubin (0.3-1.0) mg/dL Direct Bilirubin (0.0-0.2) mg/dL Indirect Bilirubin (0.0-1.2) mg/dL AST (13-39) Units/L ALT (7-52) Units/L Alkaline Phosphatase (34-104) Units/L Troponin I < 0.03 (< 0.04) ng/mL Serum Total Protein (6.4-8.9) g/dL Albumin (3.5-5.7) g/dL Globulin (2.4-3.5) g/dL Albumin/Globulin Ratio (1.1-2.2) Urine Color Yellow (Yellow) Urine Clarity Cloudy A (Clear) Urine pH 7.0 (5.0-8.0) pH Units Ur Specific [place] 1.012 (1.010-1.025) Urine Protein 100 H (Neg-Trace) mg/dL Urine Glucose (UA) Normal (Normal) mg/dL Urine Ketones Negative (Negative) mg/dL Urine Blood Large H (Negative) Urine Nitrite Negative (Negative) Urine Bilirubin Negative (Negative) Urine Urobilinogen 2.0 H (Normal) mg/dL Ur Leukocyte Esterase Large H (Negative) Urine Microscopic RBC 50-100 H (0-3) per hpf Urine Microscopic WBC TNTC H (0-3) per hpf Ur Squamous Epith Cells Moderate H (None-Few) per lpf Urine Bacteria Moderate H (None-Few) per hpf Hyaline Casts None Seen (None-Few) per lpf Urine Yeast Moderate H (None Seen) per hpf Ur Culture Indicated? YES A (NO) - Radiology Data Radiology results reviewed: Yes I reviewed the patient's radiology results. Abdomen/Pelvis CT 01/15/18 10:33 IMPRESSION: 1. Findings suggestive of cystitis, most likely centered in a diverticulum arising from the left urinary bladder wall. Underlying malignancy is not entirely excluded. Consider urology evaluation. 2. Suspected wall thickening near the gastroesophageal junction. While this appearance could be seen with esophagitis (especially given the presence of a small sliding hiatal hernia), there are new abnormal bilateral paraesophageal and retrocrural lymph nodes suspicious for metastatic disease. Recommend gastroenterology evaluation with consideration for endoscopy. 3. New subacute to chronic appearing moderate to severe anterior compression deformity of T12. Given bony demineralization, this is consistent with osteoporosis. Of note, there are 6 lumbar type vertebrae. 4. Incidental findings above. D/ / Yon Parsons MD / Yon Parsons MD Interpreting Provider: Yon Parsons MD - EKG Data EKG #1 EKG attestation: Yes I reviewed and interpreted this EKG. EKG shows normal: sinus rhythm Rate: tachycardia Rhythm: NSR Interpretation: no acute changes - Core Measures AMI Core Measures Followed: No
[2018-01-15 10:46] LABS: Bilirubin,Urine Negative (Negative); Blood,Urine Large (Negative); Clarity,Urine Cloudy (Clear); Color,Urine Yellow (Yellow); Glucose,Urine (UA) Normal (Normal); Ketones,Urine Negative (Negative); Leukocyte Esterase,Urine Large (Negative); Nitrite,Urine Negative (Negative); Protein,Urine 100 mg/dL (Neg-Trace); Specific Gravity,Urine 1.012 (1.010-1.025)
[2018-01-15 10:48] LABS: Bacteria,Urine Moderate per hpf (None-Few); Hyaline Casts,Urine None Seen per lpf (None-Few); Squamous Epithelial Cell,Urine Moderate per lpf (None-Few); WBC,Urine TNTC per hpf (0-3)
[2018-01-15 10:56] LABS: RBC,Urine 50-100 per hpf (0-3); Yeast,Urine Moderate per hpf (None Seen)
[2018-01-15] MEDS ORDERED: Naloxone 0.4 MG/ML INJ IVP PRN (11:31)
[2018-01-15] MEDS ORDERED: Acetaminophen 325 MG TABLET PO PRN (11:37)
[2018-01-15] MEDS ORDERED: *HR* Promethazine 25 MG/ML VIAL IVP PRN (11:37)
[2018-01-15] MEDS ORDERED: Mag Hydrox/Al Hydrox/Simeth 30 ML UDC PO PRN (11:37)
[2018-01-15] MEDS ORDERED: Ondansetron 4 MG/2 ML VIAL IVP PRN (11:37)
[2018-01-15] MEDS ORDERED: 0.9 % Sodium Chloride 1,000 ML IVC SCH (11:45)
[2018-01-15] MEDS ORDERED: cefTRIAXone 2,000 MG in Water for inj. (sterile) 20 ML 20 ML IVPB ONE (12:00)
--- NOTE | 2018-01-15 12:58 | Electrocardiograph Report ---
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
[2018-01-15] MEDS ORDERED: Furosemide 40 MG/4 ML VIAL IVP ONE (14:03)
[2018-01-15] MEDS ORDERED: Ipratropium/Albuterol Neb 3 ML IH ONE (14:05)
[2018-01-15] MEDS: MethylPREDNISolone 40 MG/ML VIAL IVP SCH ×2 (14:28→18:58)
--- NOTE | 2018-01-15 15:29 | Internal Med History&Physical ---
Date of Encounter: 01/15/18 Time of Encounter: 11:50 Assessment and Plan (1) Acute respiratory failure with hypoxia Current visit: Yes Status: Acute Admit the pt into Tele He does have acute hypoxic resp failure Will get stat CXR now Reviewed CT of Abd / Pelvis does have cystitis, bladder wall thickening and ground glass opacities in lower lobes Started him on empirical ax Cefepime + vancomycin Will check Sputum cx, Strep PNA, Legionella PNA, Resp viral panel f/u on blood cx (2) Sepsis Current visit: Yes Status: Acute Does meet Sepsis criteria with Fever, Tachycardia, source of inf as UTI Qualifiers: Sepsis type: sepsis due to unspecified organism Qualified Code(s): A41.9 - Sepsis, unspecified organism (3) COPD with acute exacerbation Current visit: Yes Status: Acute Started him on IV steroids + Duonebs + O2 (4) UTI (urinary tract infection) Current visit: Yes Status: Acute she did have proteus in the past cont Cefepime for now will f/u on urine cx Qualifiers: Urinary tract infection type: site unspecified Hematuria presence: without hematuria Qualified Code(s): N39.0 - Urinary tract infection, site not specified (5) Acute diastolic (congestive) heart failure Current visit: No Status: Acute He does have acute CHF exacerbation too with significantly edematous both legs and crackles in lungs due to sepsis will give Lasix PRN check 2 D Echo in AM reviewed Echo from 2016 showed preserved LVEF, Moderate diastolic dysfunction resumed other home meds (6) Bilateral lower extremity edema Current visit: No Status: Acute (7) Cellulitis of both lower extremities Current visit: No Status: Acute does have cellulites in both legs more significant in Left leg cont empirical abx (8) Diabetes type 2, uncontrolled Current visit: No Status: Chronic on ISS Qualifiers: Diabetes mellitus complication status: with circulatory complication Diabetes mellitus complication detail: with other circulatory complications 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 Jimenez is a 72 year old male with known PMH of Paroxysmal atrial fibrillation , Diastolic CHF, diabetes, GERD, hypertension, chronic venous stasis and chronic indwelling tomlinson cathter for urinary retention , also had recurrent UTI who presented to ER with fever, T max 102 at home and lower abdominal discomfort. He also c/o worsening swelling and erythema in both legs. He denied any CP . He is alert, awake and O x 3. Past Med Surg Social Fam HX - Past Medical History Medical history: atrial fibrillation, COPD, diabetes, GERD, hyperlipidemia, hypertension, venous stasis Psychiatric history: no psych history - Past Surgical History Surgical History: appendectomy, herniorrhaphy, knee replacement - Social History Smoking Status: Never smoker Smokeless Tobacco Status: No Alcohol use: none Drug use: none - Family History Mother Living Status: Hx Family Cardiac Disorders: Yes (HTN) Father Living Status: Hx Family Cardiac Disorders: Yes (CHF) Hx Family Respiratory Disorders: No Hx Family Cancer: No Hx Family Endocrine Disorder: No Internal Medicine - H&P: Meds Labetalol HCl 300 mg PO 0700,1200,2100 10/25/16 [History] Pantoprazole Sodium [Protonix] 40 mg PO QAM 10/25/16 [History] Rivaroxaban [Xarelto] 20 mg PO QAM 10/25/16 [History] Carbidopa/Levodopa [Carbidopa-Levodopa 25-100 Tab] 1 tab PO HS 07/09/17 [History ] Cholecalciferol (Vitamin D3) [Vitamin D3] 5,000 unit PO QAM 07/09/17 [History] Furosemide [Lasix] 40 mg PO DAILY 01/15/18 [History] Lisinopril [Zestril] 20 mg PO DAILY 01/15/18 [History] Oxybutynin Chloride [Ditropan Xl] 15 mg PO DAILY 01/15/18 [History] Potassium Chloride 20 mg PO DAILY 01/15/18 [History] 3 Allergy/AdvReac Type Severity Reaction Status Date / Time No Known Allergies Allergy Verified 01/15/18 08:57 All Systems PM: A 10-system review of systems was performed and is negative for pertinent findings except as documented above in the HPI. Review of systems: All the systems are reviewed everything is benign except the systems and symptoms I mentioned in the history of present illness - Constitutional Vitals: Temp Pulse Resp BP Pulse Ox 100.6 F H 99 18 132/85 92 01/15/18 12:33 01/15/18 12:33 01/15/18 12:33 01/15/18 12:33 01/15/18 12:33 General appearance: Present: mild distress, A&O X 3, answers questions appropriately - Head Head exam: Present: atraumatic, normal inspection - Neck Neck exam general surgery: Present: supple - Respiratory Respiratory exam: Present: decreased breath sounds, rales (mild), wheezes ( moderate wheezing). Absent: respiratory distress, rhonchi - Cardiovascular Cardiovascular exam: Present: +S1, +S2, tachycardia - GI/Abdominal GI/Abdominal exam: Present: normal bowel sounds, soft. Absent: rebound, rigid, tenderness - Extremities Exam Extremities exam: Present: pedal edema (2++). Absent: calf tenderness, tenderness - Back Exam Back exam: Absent: CVA tenderness (L), CVA tenderness (R) - Neurological Exam Neurological exam: Present: alert, oriented X3 - Psychiatric Psychiatric exam: Present: anxious Internal Med - H&P Results - Labs CBC & Chem 7: 01/15/18 09:11 01/15/18 09:11
[2018-01-15] MEDS ORDERED: Dextrose Gel 15 GM/37.5 ML TUBE PO PRN ×2 (15:49)
[2018-01-15] MEDS ORDERED: *HR* Dextrose 50 % in Water (Syg) 50 ML SYRINGE IVP PRN (15:49)
[2018-01-15] MEDS ORDERED: D5% in Water 1,000 ML IVC PRN (15:49)
[2018-01-15] MEDS ORDERED: Cefepime HCl 1,000 MG in D5% in Water (Mini-Bag+) 100 ML IVPB SCH (16:00)
[2018-01-15 16:03] LABS: ABG Base Excess 4 mEq/L (-2 to 3); ABG HCO3 30 mEq/L (21-27); ABG Oxygen Saturation 96 % (95-98); ABG PCO2 46 mmHg (35-45); ABG PH 7.41 pH Units (7.32-7.45); ABG PO2 79 mmHg (85-104); ABG TCO2 31 mEq/L (20-26); Blood Gas FiO2 3.5 (1-15=lpm or21-100=%)
[2018-01-15] MEDS ORDERED: Haloperidol Lactate 5 MG/ML VIAL IVP PRN (16:05)
[2018-01-15] MEDS: Ipratropium/Albuterol Neb 3 ML IH SCH ×3 (17:02→23:54)
[2018-01-15] MEDS: Cefepime HCl 1,000 MG in Water for inj. (sterile) 20 ML 10 ML IVP SCH (18:11)
[2018-01-15] MEDS: Insulin LISPRO 300 UNITS/3 ML VIAL SQ SCH ×2 (18:11→20:47)
[2018-01-15] MEDS: Carbidopa/Levodopa 25/100 TABLET PO SCH (20:47)
[2018-01-15] MEDS: *HR* HYDROcodone/Acet 5/325 mg TABLET PO PRN (20:47)
[2018-01-16] MEDS: Cefepime HCl 1,000 MG in Water for inj. (sterile) 20 ML 10 ML IVP SCH ×3 (01:18→18:04)
[2018-01-16] MEDS: MethylPREDNISolone 40 MG/ML VIAL IVP SCH ×3 (01:19→18:05)
[2018-01-16 02:21] LABS: Basophils % 0.2 %; Hematocrit 33.6 % (37.5-50.1); Hemoglobin 10.3 g/dL (12.9-16.9); Immature Granulocytes % 0.4 % (0-4); Lymphocytes # 0.9 K/mcL (0.6-4.6); Lymphocytes % 9.8 %; Mean Corpuscular HGB Conc 30.7 g/dL (31.6-35.5); Mean Corpuscular Hemoglobin 28.5 pg (28.0-33.3); Mean Corpuscular Volume 93.1 fL (83.0-100.0); Mean Platelet Volume 10.5 fL (9.4-12.4); Monocytes # 0.2 K/mcL (0.0-1.3); Monocytes % 1.9 %; Neutrophils # 8.4 K/mcL (1.6-8.9); Platelet Count 267 K/mcL (140-400); Red Blood Count 3.61 M/mcL (4.19-5.50); Red Cell Distribution Width 13.8 % (11.5-14.5); Segmented Neutrophils % 87.7 %
[2018-01-16 02:36] LABS: BUN/Creatinine Ratio 15 (6-26); Blood Urea Nitrogen 17 mg/dL (8-23); Calcium 8.1 mg/dL (8.6-10.3); Carbon Dioxide 30 mEq/L (23-29); Chloride 99 mEq/L (98-107); Glucose 216 mg/dL (70-105); Osmolality,Calculated 288 (280-300); Potassium 3.8 mEq/L (3.5-5.1); Sodium 135 mEq/L (136-145); eGFR For African Americans > 60 (> 60); eGFR For Non-African Americans > 60 (> 60)
[2018-01-16] MEDS: Ipratropium/Albuterol Neb 3 ML IH SCH ×5 (03:36→20:05)
[2018-01-16 06:18] LABS: Acinetobacter baumannii by PCR Not Detected (Not Detect); Candida albicans by PCR Not Detected (Not Detect); Candida glabrata by PCR Not Detected (Not Detect); Candida krusei by PCR Not Detected (Not Detect); Candida parapsilosis by PCR Not Detected (Not Detect); Candida tropicalis by PCR Not Detected (Not Detect); Enterococcus by PCR Not Detected (Not Detect); Escherichia coli by PCR Not Detected (Not Detect); Klebsiella oxytoca by PCR Not Detected (Not Detect); Klebsiella pneumoniae by PCR Not Detected (Not Detect); Pseudomonas aeruginosa by PCR Not Detected (Not Detect); Serratia marcescens by PCR Not Detected (Not Detect); Staphylococcus aureus by PCR ***DETECTED*** (Not Detect); Streptococcus agalactiae(B)PCR Not Detected (Not Detect); Streptococcus by PCR Not Detected (Not Detect); Streptococcus pneumoniae PCR Not Detected (Not Detect); Streptococcus pyogenes (A) PCR Not Detected (Not Detect); mecA Methicillin-Resist Gene ***DETECTED*** (Not Detect)
[2018-01-16] MEDS: Insulin LISPRO 300 UNITS/3 ML VIAL SQ SCH ×4 (08:22→23:56)
[2018-01-16] MEDS: Lisinopril 20 MG TABLET PO SCH (09:21)
[2018-01-16] MEDS: *HR* Rivaroxaban 10 MG TABLET PO SCH (09:21)
[2018-01-16] MEDS: Cholecalciferol (D-3) 1,000 UNIT TABLET PO SCH (09:22)
--- NOTE | 2018-01-16 09:47 | Internal Med Progress Note ---
Date of Encounter: 01/16/18 Time of Encounter: 09:45 - Assessment and plan (1) Acute respiratory failure with hypoxia Current Visit: Yes Status: Acute Assessment and plan: Pt with oxygen saturation of 87% on room air last evening. Currently on oxygen supplementation. Will wean as able. (2) Sepsis Current Visit: Yes Status: Resolved Assessment and plan: No further fever. WBC has improved. Blood cx positive for MRSA. Currently on IV abx. Repeat blood cx. Echo cardiogram. Qualifiers: Sepsis type: methicillin resistant Staphylococcus aureus Qualified Code(s) : A41.02 - Sepsis due to Methicillin resistant Staphylococcus aureus (3) MRSA bacteremia Current Visit: Yes Status: Acute Assessment and plan: Blood cx from ED with MRSA. Repeat blood cx done this AM. Continue IV abx Echocardiogram this AM. (4) UTI (urinary tract infection) Current Visit: Yes Status: Acute Assessment and plan: Pt with chronic tomlinson. Urine culture pending. UTI present on admission. On IV abx at this time. Qualifiers: Urinary tract infection type: catheter-associated UTI Indwelling urinary catheter type: indwelling urethral catheter Encounter type: initial encounter Qualified Code(s): T83.511A - Infection and inflammatory reaction due to indwelling urethral catheter, initial encounter; N39.0 - Urinary tract infection , site not specified; N39.0 - Urinary tract infection, site not specified (5) Cellulitis of both lower extremities Current Visit: No Status: Acute Assessment and plan: Appear to be improved from yesterday Has significant venous stasis bilaterally Continue IV abx. (6) COPD with acute exacerbation Current Visit: Yes Status: Acute Assessment and plan: Seems to be improving. Continue IV abx. Decrease steroids today. (7) Acute diastolic (congestive) heart failure Current Visit: No Status: Acute Assessment and plan: Appears to be slowly improving. Restart PO Lasix. Echocardiogram to be done today. (8) Diabetes mellitus Current Visit: No Status: Chronic Assessment and plan: Currently on accuchecks and coverage. 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 Remains on Xarelto Qualifiers: Atrial fibrillation type: chronic Qualified Code(s): I48.2 - Chronic atrial fibrillation (10) Hypertension Current Visit: No Status: Chronic Assessment and plan: Controlled at this time. Continue current medications. Qualifiers: Hypertension type: essential hypertension Qualified Code(s): I10 - Essential (primary) hypertension (11) Right hip pain Current Visit: No Status: Chronic Assessment and plan: Due to osteoarthritis. Monitoring closely in light of bacteremia. (12) Stasis dermatitis of both legs Current Visit: Yes Status: Chronic Assessment and plan: Supportive care. (13) Morbid obesity with BMI of 45.0-49.9, adult Current Visit: Yes Status: Chronic Assessment and plan: Chronic issue - Subjective Interval history: Mr Jimenez is currently admitted for CAUTI - present on admission and MRSA bacteremia. He remains moderate to high risk due to potential for worsening clinical status. Mr Jimenez is feeling OK at this time. He received pain meds last night and slept better. No fever now. Blood cx positive for MRSA. Urine cx pending. Appetite OK. Tolerating IV abx. No GI issues. Wants to try to pursue hip surgery - I explained he has MRSA in his blood and that would not be possible at this time. - Constitutional Vitals: Temp Pulse Resp BP Pulse Ox 98.1 F 51 16 122/71 99 01/16/18 07:03 01/16/18 07:03 01/16/18 07:08 01/16/18 07:03 01/16/18 07:08 General appearance: Present: A&O X 3, answers questions appropriately - Head Head exam: Present: atraumatic, normocephalic - Eye Eye exam: Present: conjuntiva pink - ENT ENT exam: Present: mucous membranes dry - Respiratory Respiratory exam: Present: decreased breath sounds, CTAB. Absent: rales, rhonchi, wheezes - Cardiovascular Cardiovascular exam: Present: distant heart sounds, RRR. Absent: tachycardia - GI/Abdominal GI/Abdominal exam: Present: normal bowel sounds, soft. Absent: tenderness - Extremities Exam Extremities exam: Present: warm Additional comments: Significant edema bilateral and stasis dermatitis changes. Cool to touch. - Neurological Exam Neurological exam: Present: alert, oriented X3 - Skin Skin exam: Present: warm Internal Medicine: Result - Labs CBC & Chem 7: 01/16/18 01:36 01/16/18 01:36 Labs: Short CBC 01/16/18 Range/Units 01:36 WBC 9.6 (4.3-11.1) K/mcL Hgb 10.3 L (12.9-16.9) g/dL Hct 33.6 L (37.5-50.1) % Plt Count 267 (140-400) K/mcL Neutrophils # 8.4 (1.6-8.9) K/mcL BMP 01/16/18 01:36 Sodium 135 L Potassium 3.8 Chloride 99 Carbon Dioxide 30 H BUN 17 Creatinine 1.11 Glucose 216 H Calcium 8.1 L - ABG Interpretation ABG results: ABG ABG pH 7.41 pH Units (7.32-7.45) 01/15/18 15:59 ABG pCO2 46 mmHg (35-45) H 01/15/18 15:59 ABG pO2 79 mmHg (85-104) L 01/15/18 15:59 ABG O2 Saturation 96 % (95-98) 01/15/18 15:59 PT/INR, D-dimer PT 17.8 Seconds (9.4-12.1) H 01/15/18 09:11 - Impressions Impressions Chest X-Ray 01/15/18 15:30 IMPRESSION: No acute process. Stable cardiomegaly Probable hiatal hernia again noted D/ / Yon Galeana MD / Yon Galeana MD Interpreting Provider: Yon Galeana MD Consult Discharge Plan - Plan Referrals: Bulmaro Negro MD [Primary Care Provider] -
[2018-01-16] MEDS: Carbidopa/Levodopa 25/100 TABLET PO SCH (23:55)
[2018-01-17] MEDS: Ipratropium/Albuterol Neb 3 ML IH SCH ×7 (00:03→23:33)
[2018-01-17] MEDS: Cefepime HCl 1,000 MG in Water for inj. (sterile) 20 ML 10 ML IVP SCH ×2 (03:03→10:48)
[2018-01-17] MEDS: MethylPREDNISolone 40 MG/ML VIAL IVP SCH ×2 (06:53→17:42)
[2018-01-17 07:48] LABS: BUN/Creatinine Ratio 22 (6-26); Blood Urea Nitrogen 22 mg/dL (8-23); Calcium 8.6 mg/dL (8.6-10.3); Carbon Dioxide 30 mEq/L (23-29); Chloride 101 mEq/L (98-107); Glucose 228 mg/dL (70-105); Osmolality,Calculated 293 (280-300); Potassium 4.2 mEq/L (3.5-5.1); Sodium 136 mEq/L (136-145); eGFR For African Americans > 60 (> 60); eGFR For Non-African Americans > 60 (> 60)
[2018-01-17 07:58] LABS: Hematocrit 32.9 % (37.5-50.1); Hemoglobin 10.3 g/dL (12.9-16.9); Mean Corpuscular HGB Conc 31.3 g/dL (31.6-35.5); Mean Corpuscular Hemoglobin 28.6 pg (28.0-33.3); Mean Corpuscular Volume 91.4 fL (83.0-100.0); Mean Platelet Volume 10.6 fL (9.4-12.4); Platelet Count 311 K/mcL (140-400); Red Cell Distribution Width 13.7 % (11.5-14.5)
[2018-01-17] MEDS: Insulin LISPRO 300 UNITS/3 ML VIAL SQ SCH ×4 (08:13→21:32)
[2018-01-17] MEDS: Lisinopril 20 MG TABLET PO SCH (08:14)
[2018-01-17] MEDS: *HR* Rivaroxaban 10 MG TABLET PO SCH (08:14)
[2018-01-17] MEDS: Cholecalciferol (D-3) 1,000 UNIT TABLET PO SCH (08:14)
[2018-01-17] MEDS ORDERED: Furosemide 20 MG TABLET PO SCH (09:00)
--- NOTE | 2018-01-17 10:30 | Internal Med Progress Note ---
Date of Encounter: 01/17/18 Time of Encounter: 10:20 - Assessment and plan (1) Acute respiratory failure with hypoxia Current Visit: Yes Status: Acute Assessment and plan: Pt with oxygen saturation of 87% on room air on admit. Currently on 6L high flow. Not more dyspneic. Continue to wean oxygen as able. (2) Sepsis Current Visit: Yes Status: Resolved Assessment and plan: No further fever. WBC elevated again but on steroids. Blood cx positive for MRSA. Urine cx positive as well. Repeat blood cx neg thus far. Currently on IV abx. Echocardiogram no overt vegetation. Will ask ID to see tomorrow for abx plan and length. Qualifiers: Sepsis type: methicillin resistant Staphylococcus aureus Qualified Code(s) : A41.02 - Sepsis due to Methicillin resistant Staphylococcus aureus (3) MRSA bacteremia Current Visit: Yes Status: Acute Assessment and plan: Blood cx from ED with MRSA. Repeat blood cx neg thus far Continue IV abx Echocardiogram with no vegetation seen. (4) UTI (urinary tract infection) Current Visit: Yes Status: Acute Assessment and plan: Pt with chronic tomlinson. Urine culture with MRSA UTI present on admission. On IV abx at this time. Will need tomlinson catheter changed. Qualifiers: Urinary tract infection type: catheter-associated UTI Indwelling urinary catheter type: indwelling urethral catheter Encounter type: subsequent encounter Qualified Code(s): T83.511D - Infection and inflammatory reaction due to indwelling urethral catheter, subsequent encounter; N39.0 - Urinary tract infection, site not specified; N39.0 - Urinary tract infection, site not specified (5) Cellulitis of both lower extremities Current Visit: No Status: Acute Assessment and plan: Appear to be slowly improving. Has significant venous stasis bilaterally Continue IV abx. (6) COPD with acute exacerbation Current Visit: Yes Status: Acute Assessment and plan: Seems to be improving. Continue IV abx. Decrease steroids today. (7) Acute diastolic (congestive) heart failure Current Visit: No Status: Acute Assessment and plan: Appears to be slowly improving. Restart PO Lasix. Echocardiogram EG 60-65% (8) Diabetes mellitus Current Visit: No Status: Chronic Assessment and plan: Currently on accuchecks and coverage. 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 Remains on Xarelto Qualifiers: Atrial fibrillation type: chronic Qualified Code(s): I48.2 - Chronic atrial fibrillation (10) Hypertension Current Visit: No Status: Chronic Assessment and plan: Controlled at this time. Continue current medications. Qualifiers: Hypertension type: essential hypertension Qualified Code(s): I10 - Essential (primary) hypertension (11) Right hip pain Current Visit: No Status: Chronic Assessment and plan: Due to osteoarthritis. Monitoring closely in light of bacteremia. (12) Stasis dermatitis of both legs Current Visit: Yes Status: Chronic Assessment and plan: Supportive care. (13) Morbid obesity with BMI of 45.0-49.9, adult Current Visit: Yes Status: Chronic Assessment and plan: Chronic issue - Subjective Interval history: Mr Jimenez is currently admitted for CAUTI - present on admission and MRSA bacteremia. He remains moderate to high risk due to potential for worsening clinical status. Mr Jimenez seems to be feeling a little better this AM. He wants to get up to go to the bathroom and not use bedpan. No fever or chills. Urine with MRSA. Repeat blood cx neg thus far. No CP or SOB. - Constitutional Vitals: Temp Pulse Resp BP Pulse Ox 98.3 F 64 20 136/81 98 01/17/18 07:28 01/17/18 07:28 01/17/18 07:36 01/17/18 07:28 01/17/18 07:36 General appearance: Present: A&O X 3, answers questions appropriately - Head Head exam: Present: normocephalic - Eye Eye exam: Present: conjuntiva pink - ENT ENT exam: Present: mucous membranes dry - Respiratory Respiratory exam: Present: CTAB. Absent: rales, rhonchi, wheezes - Cardiovascular Cardiovascular exam: Present: distant heart sounds, RRR. Absent: tachycardia - Extremities Exam Extremities exam: Present: warm Additional comments: Stasis dermatitis present. - Neurological Exam Neurological exam: Present: alert, oriented X3 - Skin Skin exam: Present: dry, warm Internal Medicine: Result - Labs CBC & Chem 7: 01/17/18 07:11 01/17/18 07:11 Labs: Short CBC 01/17/18 Range/Units 07:11 WBC 16.2 H D (4.3-11.1) K/mcL Hgb 10.3 L (12.9-16.9) g/dL Hct 32.9 L (37.5-50.1) % Plt Count 311 (140-400) K/mcL [facility] 01/17/18 07:11 Sodium 136 Potassium 4.2 Chloride 101 Carbon Dioxide 30 H BUN 22 Creatinine 1.01 Glucose 228 H Calcium 8.6 - ABG Interpretation ABG results: ABG ABG pH 7.41 pH Units (7.32-7.45) 01/15/18 15:59 ABG pCO2 46 mmHg (35-45) H 01/15/18 15:59 ABG pO2 79 mmHg (85-104) L 01/15/18 15:59 ABG O2 Saturation 96 % (95-98) 01/15/18 15:59 PT/INR, D-dimer PT 17.8 Seconds (9.4-12.1) H 01/15/18 09:11 - Impressions Impressions Echocardiogram 01/16/18 16:42 Impressions: LVEF 60-65%. Mild left ventricular diastolic dysfunction. Normal right ventricular structure and function. No significant valvular dysfunction. No pulmonary hypertension. Left Ventricular Wall Motion: Rest Echo Findings All wall segments showed normal motion. Findings: Study Quality * Technically adequate exam. ECG Findings * Normal sinus rhythm. Left Ventricle * LVEF 60-65%. * Normal LV chamber size, wall thickness and function. * Mild left ventricular diastolic dysfunction. Right Ventricle * Normal right ventricular structure and function. Left Atrium * Normal left atrial size. Right Atrium * Normal right atrial size. Aortic Valve * No aortic regurgitation. * Aortic valve not well visualized. * No aortic stenosis. Mitral Valve * No mitral regurgitation. * Normal mitral valve structure. * No mitral stenosis. Tricuspid Valve * Tricuspid valve not well visualized. * No tricuspid regurgitation. * Estimated RA pressure is 8 mmHg. * Estimated RVSP is 19 mmHg. * No pulmonary hypertension. Pulmonic Valve * Pulmonic valve is not well visualized. * No pulmonic stenosis. * No pulmonic regurgitation. Pulmonary Artery * Pulmonary artery not well visualized. Aorta * Normally sized aortic root. * The ascending aorta is suboptimally visualized. Pericardium * There is no pericardial effusion present. Interatrial Septum * No evidence of PFO by color Doppler. IVC * The IVC is not dilated. * < 50% respiratory change. Consult Discharge Plan - Plan Referrals: Bulmaro Negro MD [Primary Care Provider] -
[2018-01-17] MEDS: *HR* HYDROcodone/Acet 5/325 mg TABLET PO PRN (15:36)
[2018-01-17] MEDS: Carbidopa/Levodopa 25/100 TABLET PO SCH (21:29)
[2018-01-17] MEDS: Furosemide 20 MG TABLET PO SCH (21:31)
[2018-01-18] MEDS: Ipratropium/Albuterol Neb 3 ML IH SCH ×6 (04:10→23:48)
--- NOTE | 2018-01-18 06:31 | Urology Procedure Note ---
Date of Encounter: 01/18/18 Time of Encounter: 06:29 Procedures:Urology - Catheter Insertion (Urinary) Prophylactic antibiotics given: No Bladder Scan/Ultrasound used before catheterization: No Estimated amount of urin (mLs): 100 Preparation: Povidone-Iodine Type of catheter inserted: 2 way Catheter Portuguese Size: 18 Topical anesthesia used: No Results: successfully catheterized-immediate flow Urine Appearance: Clear Patient tolerated procedure: well Complications: none Additional comments: Patient well-known to the urology service. Morbid obesity and indwelling catheter secondary to incontinence. Recommendations in the past to remove the catheter to prevent persistent UTI. Patient has been resistant to this plan and desires management with indwelling catheter. Admitted with UTI. Traumatically displaced catheter yesterday. He has been incontinent overnight. He desires placement of catheter again. This is a difficult catheter placement secondary to severe hidden penis and morbid obesity. Nico.Eldon able to place at bedside. Follow up with urology as scheduled. No change in current plan
[2018-01-18] MEDS: *HR* Rivaroxaban 10 MG TABLET PO SCH (08:10)
[2018-01-18] MEDS: Cholecalciferol (D-3) 1,000 UNIT TABLET PO SCH (08:10)
[2018-01-18] MEDS: predniSONE 10 MG TABLET PO SCH (08:10)
[2018-01-18] MEDS: Furosemide 20 MG TABLET PO SCH (08:11)
[2018-01-18] MEDS: Lisinopril 20 MG TABLET PO SCH (08:11)
[2018-01-18] MEDS: Insulin LISPRO 300 UNITS/3 ML VIAL SQ SCH ×3 (08:12→16:45)
--- NOTE | 2018-01-18 10:38 | Infectious Disease Consult ---
Date of Encounter: 01/18/18 Time of Encounter: 10:00 Assessment and Plan (1) Sepsis Status: Resolved Assessment and plan: Present upon admission Now resolved with 1 SIRS criteria present MRSA bacteremia and MRSA UTI Enterococcus UTI Qualifiers: Sepsis type: sepsis due to unspecified organism Qualified Code(s): A41.9 - Sepsis, unspecified organism (2) Bacteremia Status: Acute Assessment and plan: MRSA Bacteremia Complicated due to presence of bilateral prosthetic joints Source currently unclear Suspect skin source that passed through the urine, though can't rule out UTI as source No stigmata of IE appreciated Blood cultures on 01/15: 2/2 positive for MRSA Blood cultures on 01/16: 2/ negative preliminarily TTE performed on 01/16: EF 60-65% with mild diastolic dysfunction, no vegetation seen One major and one minor criteria present Recommend obtaining MERLINE for further visualization We will have PICC line placed tomorrow Continue vancomycin (3) UTI (urinary tract infection) Status: Ruled-out Assessment and plan: Catheter associated UTI Urine culture positive for MRSA and enterococcus Patient has received 3 days of cefepime Patient has received one day ceftriaxone Currently on day one of vancomycin Qualifiers: Urinary tract infection type: catheter-associated UTI Indwelling urinary catheter type: indwelling urethral catheter Encounter type: initial encounter Qualified Code(s): T83.511A - Infection and inflammatory reaction due to indwelling urethral catheter, initial encounter; N39.0 - Urinary tract infection , site not specified; N39.0 - Urinary tract infection, site not specified (4) Knee joint replacement status Status: Acute Assessment and plan: Presence of bilateral knee replacements complicates MRSA bacteremia No erythema, warmth, or tenderness present in bilateral knees Qualifiers: Laterality: bilateral Qualified Code(s): Z96.653 - Presence of artificial knee joint, bilateral (5) Venous stasis Status: Acute Assessment and plan: Patient has venous stasis with chronic skin changes present on bilateral lower extremities Some evidence of scabs on lower extremities could be a nidus of MRSA entrance (6) Chronic indwelling Adame catheter Status: Acute Assessment and plan: Patient has history of UTIs Presented with MRSA and enterococcus UTI Plan as above (7) Metastatic disease Status: Acute Assessment and plan: Findings on CT examination suspicious for metastatic disease stemming from the esophagus Consider GI consult for further evaluation Infectious Disease HPI - Data of Consult Patient: new to practice Consult date: 01/18/18 Requesting Physician: Ananda Caba DO Primary Care Provider: Bulmaro Negro MD - Consult Narrative Reason for consult: MRSA bacteremia/UTI History of present illness: Mr. Jimenez is a 72yo Male w/ PMHx of type II DM, A-Fib, Diastolic CHF, bilateral knee replacement and GERD presented to the [facility] [place] w/ lower abdominal pain and hematuria on 01/15. ID was consulted on 01/18 for MRSA UTI/bacteremia. According to the ED note, he stated that he had trouble urinating, blood in his Adame catheter and worsening dyspnea. He reports having a Adame catheter for the past 6 or 7 months due to an inverted penis, although after discussion with his primary team it is likely due to issues with incontinence. He states that he has had UTIs in the past with the last one being 5 months ago, however the UTIs usually resolve faster than this one has. In the ED, the patient met the SIRS criteria, sepsis but not septic shock criteria. CT scan performed in the ED was suggestive of cystitis and ground glass opacities were seen in the lower lobes of his lungs. Additionally, the CT scan showed thickening near the gastroesophageal junction along w/ new abnormal b/l paraesophageal and retrocrural lymph nodes suspicious for metastatic disease. CXR done on 01/15 did not reveal any effusion or pneumothorax but did show stable cardiomegaly. Blood cultures via peripheral venipuncture x2 on 01/15 revealed MRSA bacteremia and urine culture x2 revealed MRSA and Enterococcus faecalis. Repeat blood culture via peripheral venipuncture on 01/16 did not grow any bacteria. Patient was started on IV Vancomycin and Maxipime on 01/15. An echocardiogram was performed on 01/16 that did not show any vegetation. During my encounter w/ the patient on 01/18 he was eating breakfast and said he is feeling good. He does not use oxygen or BiPAP at home, but was on BiPAP during this admission. He was not on BiPAP when I was in the room w/ him. He denies any fevers, night sweats, or chills. Denies headaches, blurry vision or tinnitus or hearing loss. He denies chest pain, palpitations or syncope. Denies SOB, cough or hemoptysis. He denies n/v, diarrhea, constipation, hematochezia or melena. His last bowel movement was yesterday afternoon, normal in color. He denies burning sensation when he pees, dysuria, hematuria. The catheter in the patients room revealed yellow urine, w/ no abnormal discoloration. Patient lives w/ his at home, denies sick contacts, pets and has not had any travels recently. CC: Ananda Caba, DO Past Med Surg Social Fam HX - Past Medical History Medical history: atrial fibrillation, CHF, diabetes, GERD, hypertension, venous stasis Psychiatric history: no psych history - Past Surgical History Surgical History: appendectomy, herniorrhaphy, knee replacement (Bilateral), orthopedic, other - Social History Smoking Status: Never smoker Smokeless Tobacco Status: No Alcohol use: none Drug use: none - Family History Mother Living Status: Hx Family Cardiac Disorders: Yes (HTN) Father Living Status: Hx Family Cardiac Disorders: Yes (CHF) Hx Family Respiratory Disorders: No Hx Family Cancer: No Hx Family Endocrine Disorder: No Infectious Disease-CN:Meds Labetalol HCl 300 mg PO 0700,1200,2100 10/25/16 [History] Pantoprazole Sodium [Protonix] 40 mg PO QAM 10/25/16 [History] Rivaroxaban [Xarelto] 20 mg PO QAM 10/25/16 [History] Carbidopa/Levodopa [Carbidopa-Levodopa 25-100 Tab] 1 tab PO HS 07/09/17 [History ] Cholecalciferol (Vitamin D3) [Vitamin D3] 5,000 unit PO QAM 07/09/17 [History] Furosemide [Lasix] 40 mg PO DAILY 01/15/18 [History] Lisinopril [Zestril] 20 mg PO DAILY 01/15/18 [History] Oxybutynin Chloride [Ditropan Xl] 15 mg PO DAILY 01/15/18 [History] Potassium Chloride 20 mg PO DAILY 01/15/18 [History] 3 Allergy/AdvReac Type Severity Reaction Status Date / Time No Known Allergies Allergy Verified 01/15/18 08:57 Review of systems: Gen: Denies fever, denies chills, denies weakness, denies fatigue CV: Denies chest pain, denies palpitations Resp: Denies dyspnea, denies coughing, denies wheeze GI: Denies nausea, denies vomiting, denies abdominal pain, denies constipation, denies diarrhea, denies hematochezia, denies melena MSK: Reports tenderness in right hip from prior softball injury, unchanged from previous, denies muscle weakness Neuro: Denies headache, denies focal weakness, denies numbness, denies tingling Skin: Denies bruising, denies rash : Denies flank pain, reports hematuria Exam - Constitutional Vitals: Temp Pulse Resp BP Pulse Ox 98.0 F 75 19 138/83 99 01/18/18 06:13 01/18/18 06:13 01/18/18 07:36 01/18/18 06:13 01/18/18 07:36 - Additional findings Additional findings: General: Cooperative, pleasant, no acute distress, alert and oriented 3, answers questions appropriately HEENT: Normocephalic, atraumatic, neck supple, trachea midline, Conjunctiva pink , sclera anicteric, oral mucosa moist, no orophargeal erythema or exudates, no conjunctival hemorrhages noted, anterior cervical LAD appreciated Respiratory: No accessory muscle usage, clear to auscultation bilaterally, no wheezes/rhonchi/rales appreciated Cardiovascular: Regular rate and rhythm, S1 and S2 present, no murmurs/rubs/ gallops/clicks appreciated GI/abdominal: Nondistended, nontender, soft, normal bowel sounds, no peritoneal signs Extremities: No calf tenderness, chronic darkening of skin from venous stasis in bilateral lower extremities, 2+ pedal edema appreciated bilaterally, increased diameter of left lower extremity (chronic), warm, lower extremity pulses palpable and symmetrical, no stigmata of endocarditis, no tenderness elicited in any joints aside from right hip (previous soft ball accident, unchanged tenderness), no swelling, erythema, or warmth noted in any joints or in spine Neurological: Alert and oriented 3, no facial droop, no focal deficits Infectious Disease CN: Results - Labs CBC & Chem 7: 01/19/18 04:26 01/19/18 04:26 Cultures: Cultures 01/16/18 06:53 Blood Culture - Preliminary Peripheral Venipuncture No growth. 01/16/18 06:53 Blood Culture - Preliminary Peripheral Venipuncture No growth. Consult Discharge Plan - Plan Referrals: Bulmaro Negro MD [Primary Care Provider] - - Attending Attestation I examined this patient and my medical decision-making was reviewed with the Resident Physician. I agree with the documented findings, disposition and treatment plan as described except to the extent set forth below. ~ This is an addendum to original report dictated by Dr. Maxime Lafleur.~ Please refer to his note for full detail. ~ Patient is a 72-year-old gentleman who was admitted to [place] on January 15 with fever and abdominal discomfort.~ We are consulted for MRSA bacteremia 2 out of 2 sets on January 15 and a urine culture that is positive for MRSA and Enterococcus faecalis on January 15.~ Repeat cultures on September 15 have been no growth to date sets.~ Since admission patient was febrile with a MAXIMUM TEMPERATURE of 101.4 Fahrenheit, patient was initially tachycardic, and had a presenting WBC of 11.3 thousand with 85% neutrophils no bands.~ Patient had an abdominal and pelvic CT with IV contrast which suggests cystitis and suspected wall thickening near the gastroesophageal junction with lymph nodes that are suspicious for metastatic disease and continue subacute moderate to severe anterior compression deformity of T12 likely secondary to osteoporosis.~ ~A chest x-ray was done and it was nonrevealing for any acute process.~ Patient was initially started on vancomycin and Rocephin and then switched to vancomycin and cefepime.~ Currently patient is on vancomycin.~ Patient also had a transthoracic echocardiogram done which revealed no vegetation.~ We are asked to evaluate the patient for further recommendations. ~ Currently, patient is laying in bed.~ Appears comfortable.~ No acute distress. ROS is remarkable for hip pain that is chronic for 4 months.~ PE remarkable for negative endocarditis stigmata, or heart murmur.~ Bilateral lower extremity venous stasis but left lower extremity with superiposed cellulitis . Pt also had a bruise on his right knee that he doesnt know how he got.~ He thinks he might have fell on it before At this point patient has a complicated mrsa bacteremia Repeat cltures negative Recommend MERLINE prior to d/c Will need a picc line (may place tomorrow) Duration of tx 4-6 weeks
--- NOTE | 2018-01-18 12:24 | Internal Med Progress Note ---
<Aubrey Elam - Last Filed: 01/18/18 12:50> Date of Encounter: 01/18/18 Time of Encounter: 10:00 - Assessment and plan (1) Sepsis Current Visit: Yes Status: Acute Assessment and plan: Patient meets sepsis on admission with tachycardia, fever, and UTI. Sepsis most likely secondary to MRSA bacteremia. Patient afebrile and in no acute distress. Blood cultures positive for MRSA x 2 on 01/15/18. Urine culture positive for MRSA and Enterococcus. WBC elevated again but curretnyl on steroids.. Repeat blood cx neg thus far. Echocardiogram no overt vegetation. 1. Continue IV Vancomycin Day 4. 2. Continue to monitor the patient closely. Qualifiers: Sepsis type: sepsis due to unspecified organism Qualified Code(s): A41.9 - Sepsis, unspecified organism (2) MRSA bacteremia Current Visit: Yes Status: Acute Assessment and plan: Patient afebrile and in no acute distress. Blood cultures positive for MRSA x 2 on 01/15/18. Urine culture positive for MRSA and Enterococcus. WBC elevated again but currently on steroids. Repeat blood cx neg thus far. Echocardiogram no overt vegetation. 1. Continue IV Vancomycin Day 4. 2. Continue to monitor the patient closely. 3. Awaiting ID recommendations. Possible MERLINE will be needed. (3) COPD with acute exacerbation Current Visit: Yes Status: Acute Assessment and plan: Seems to be improving. Continue IV abx and steroids. (4) Acute respiratory failure with hypoxia Current Visit: Yes Status: Acute Assessment and plan: Acute respiratory failure with hypoxia most likely secondary to acute exacerbation of COPD. Pt with oxygen saturation of 87% on room air on admit. Current oxygen saturation of 94% on room air during exam. Continue to monitor. (5) Cellulitis of both lower extremities Current Visit: Yes Status: Acute Assessment and plan: Appear to be slowly improving. Has significant venous stasis bilaterally. Continue IV abx. (6) Hypertension Current Visit: No Status: Chronic Assessment and plan: Controlled at this time. Continue current medications. Qualifiers: Hypertension type: essential hypertension Qualified Code(s): I10 - Essential (primary) hypertension (7) Diabetes mellitus Current Visit: No Status: Chronic Assessment and plan: Currently on accuchecks and coverage. Qualifiers: Diabetes mellitus type: type 2 Diabetes mellitus complication status: with hyperglycemia Diabetes mellitus senior living insulin use: without extermination inspector use Qualified Code(s): E11.65 - Type 2 diabetes mellitus with hyperglycemia (8) A-fib Current Visit: No Status: Chronic Assessment and plan: Rate controlled.Remains on Xarelto Qualifiers: Atrial fibrillation type: chronic Qualified Code(s): I48.2 - Chronic atrial fibrillation (9) UTI (urinary tract infection) Current Visit: Yes Status: Acute Assessment and plan: Pt with chronic tomlinson and UTI on admission. Tomlinson catheter changed this morning. Urine culture with MRSA. On IV abx at this time. Qualifiers: Urinary tract infection type: catheter-associated UTI Indwelling urinary catheter type: indwelling urethral catheter Encounter type: subsequent encounter Qualified Code(s): T83.511D - Infection and inflammatory reaction due to indwelling urethral catheter, subsequent encounter; N39.0 - Urinary tract infection, site not specified; N39.0 - Urinary tract infection, site not specified (10) Right hip pain Current Visit: Yes Status: Chronic Assessment and plan: Due to osteoarthritis. Monitoring closely in light of bacteremia. (11) Acute diastolic (congestive) heart failure Current Visit: No Status: Acute Assessment and plan: Appears to be slowly improving. Restart PO Lasix. Echocardiogram EF of 60-65% - Time Spent With Patient 25 - 35 minutes - Subjective Interval history: The patient was seen and evaluated at bedside this morning. Patient was afebrile and appears in no acute distress. Patient states that he feels better today since they have placed a new tomlinson catheter this morning. He stated that he had the catheter removed last night due to blood in his urine and 8/10 pain. The patient admits he still has right hip pain and would like surgery on it. Patient denies any fever, headaches, vision changes, chest pain, shortness of breath, difficulty breathing, abdominal pain, diarrhea, nausea and vomiting, dysuria, numbness and tingling, and any weaknesses. Patient has no other concerns at this time. - Constitutional Vitals: Temp Pulse Resp BP Pulse Ox 98.1 F 81 18 107/65 86 01/18/18 10:37 01/18/18 10:37 01/18/18 11:03 01/18/18 10:37 01/18/18 11:03 General appearance: Present: A&O X 3, obese, answers questions appropriately - Head Head exam: Present: atraumatic, normocephalic - Eye Eye exam: Present: PERRL, conjuntiva pink, sclera anicteric - ENT ENT exam: Present: mucous membranes dry - Neck Neck exam general surgery: Present: supple, trachea midline. Absent: lymphadenopathy - Respiratory Respiratory exam: Present: CTAB. Absent: accessory muscle use, rales, rhonchi, wheezes - Cardiovascular Cardiovascular exam: Present: RRR, +S1, +S2. Absent: diastolic murmur, gallop, rubs, systolic murmur - GI/Abdominal GI/Abdominal exam: Present: normal bowel sounds, soft, no peritoneal signs. Absent: distended, tenderness Additional comments: Protruding abdomen. nontender to palpation. No suprapubic tenderness. - exam: Absent: scrotal swelling, urethral discharge Additional comments: Tomlinson catheter in placed. - Extremities Exam Extremities exam: Present: warm, radial pulses palpable and symmetrical. Absent : calf tenderness, cyanotic, pedal edema Additional comments: Cellulitis present on bilateral lower extremities with chronic venous stasis. Distal pulses +2/4 bilaterally. Trace pitting present on bilateral LE. - Neurological Exam Neurological exam: Present: CN II-XII intact, oriented X3, no focal deficits. Absent: pronater drift, facial droop, speech deficit - Skin Skin exam: Present: dry, intact, rash (cellulitis present on bilateral lower extremities). Absent: pallor Internal Medicine: Result - Labs CBC & Chem 7: 01/17/18 07:11 01/17/18 07:11 - ABG Interpretation ABG results: ABG ABG pH 7.41 pH Units (7.32-7.45) 01/15/18 15:59 ABG pCO2 46 mmHg (35-45) H 01/15/18 15:59 ABG pO2 79 mmHg (85-104) L 01/15/18 15:59 ABG O2 Saturation 96 % (95-98) 01/15/18 15:59 PT/INR, D-dimer PT 17.8 Seconds (9.4-12.1) H 01/15/18 09:11 Consult Discharge Plan - Plan Referrals: Bulmaro Negro MD [Primary Care Provider] - <Ananda Caba - Last Filed: 01/18/18 18:46> Date of Encounter: 01/18/18 - Assessment and plan (1) Acute respiratory failure with hypoxia Current Visit: Yes Status: Resolved (2) Sepsis Current Visit: Yes Status: Resolved Qualifiers: Sepsis type: methicillin resistant Staphylococcus aureus Qualified Code(s) : A41.02 - Sepsis due to Methicillin resistant Staphylococcus aureus (3) MRSA bacteremia Current Visit: Yes Status: Resolved (4) UTI (urinary tract infection) Current Visit: Yes Status: Acute Qualifiers: Urinary tract infection type: catheter-associated UTI Indwelling urinary catheter type: indwelling urethral catheter Encounter type: subsequent encounter Qualified Code(s): T83.511D - Infection and inflammatory reaction due to indwelling urethral catheter, subsequent encounter; N39.0 - Urinary tract infection, site not specified; N39.0 - Urinary tract infection, site not specified (5) Cellulitis of both lower extremities Current Visit: Yes Status: Acute (6) COPD with acute exacerbation Current Visit: Yes Status: Resolved (7) Acute diastolic (congestive) heart failure Current Visit: No Status: Resolved (8) Diabetes mellitus Current Visit: No Status: Chronic Qualifiers: Diabetes mellitus type: type 2 Diabetes mellitus complication status: with hyperglycemia Diabetes mellitus senior living insulin use: without extermination inspector use Qualified Code(s): E11.65 - Type 2 diabetes mellitus with hyperglycemia (9) A-fib Current Visit: No Status: Chronic Qualifiers: Atrial fibrillation type: chronic Qualified Code(s): I48.2 - Chronic atrial fibrillation (10) Hypertension Current Visit: No Status: Chronic Qualifiers: Hypertension type: essential hypertension Qualified Code(s): I10 - Essential (primary) hypertension (11) Right hip pain Current Visit: Yes Status: Chronic (12) Stasis dermatitis of both legs Current Visit: Yes Status: Chronic (13) Morbid obesity with BMI of 45.0-49.9, adult Current Visit: Yes Status: Chronic (14) Decubitus ulcer Current Visit: Yes Status: Chronic Assessment and plan: Stage 2 gluteal fold ulcer. Qualifiers: Pressure ulcer location: other site Pressure ulcer stage: stage 2 Qualified Code(s): L89.892 - Pressure ulcer of other site, stage 2 - Constitutional Vitals: Temp Pulse Resp BP Pulse Ox 98.8 F 81 18 121/76 92 01/18/18 14:15 01/18/18 14:15 01/18/18 16:03 01/18/18 14:15 01/18/18 16:03 Internal Medicine: Result - Labs CBC & Chem 7: 01/17/18 07:11 01/17/18 07:11 - ABG Interpretation ABG results: ABG ABG pH 7.41 pH Units (7.32-7.45) 01/15/18 15:59 ABG pCO2 46 mmHg (35-45) H 01/15/18 15:59 ABG pO2 79 mmHg (85-104) L 01/15/18 15:59 ABG O2 Saturation 96 % (95-98) 01/15/18 15:59 PT/INR, D-dimer PT 17.8 Seconds (9.4-12.1) H 01/15/18 09:11 - Attending Attestation I examined this patient and my medical decision-making was reviewed with the Resident Physician on 01/18/18. I agree with the documented findings, disposition and treatment plan as described except to the extent set forth below. Mr Jimenez is currently admitted for MRSA UTI and bacteremia. He remains moderate to high risk due to potential for worsening clinical status. Mr Jimenez feels OK. No new issues overnight. Tolerating abx. No fever or chills. Exam alert Comfortable Mucus membranes dry Heart reg No wheeze abd soft Edema present I/P 1. MRSA UTI/bacteremia 2. Abnl CT of GE junction Further diagnoses and plan as above.
[2018-01-18] MEDS: Furosemide 40 MG TABLET PO SCH (18:56)
[2018-01-19] MEDS: Insulin LISPRO 300 UNITS/3 ML VIAL SQ SCH ×5 (00:58→22:51)
[2018-01-19] MEDS: Carbidopa/Levodopa 25/100 TABLET PO SCH ×2 (00:58→22:51)
[2018-01-19] MEDS: Ipratropium/Albuterol Neb 3 ML IH SCH ×6 (04:30→23:42)
[2018-01-19 05:23] LABS: Basophils % 0.1 %; Eosinophils # 0.1 K/mcL (0.0-0.6); Eosinophils % 1.3 %; Hematocrit 34.2 % (37.5-50.1); Hemoglobin 10.4 g/dL (12.9-16.9); Immature Granulocytes % 0.8 % (0-4); Lymphocytes # 1.4 K/mcL (0.6-4.6); Lymphocytes % 15.1 %; Mean Corpuscular HGB Conc 30.4 g/dL (31.6-35.5); Mean Corpuscular Hemoglobin 28.3 pg (28.0-33.3); Mean Corpuscular Volume 93.2 fL (83.0-100.0); Mean Platelet Volume 10.5 fL (9.4-12.4); Monocytes # 1.2 K/mcL (0.0-1.3); Neutrophils # 6.6 K/mcL (1.6-8.9); Platelet Count 321 K/mcL (140-400); Red Blood Count 3.67 M/mcL (4.19-5.50); Red Cell Distribution Width 13.8 % (11.5-14.5); Segmented Neutrophils % 69.7 %
[2018-01-19 05:55] LABS: BUN/Creatinine Ratio 24 (6-26); Blood Urea Nitrogen 23 mg/dL (8-23); Calcium 8.6 mg/dL (8.6-10.3); Carbon Dioxide 35 mEq/L (23-29); Chloride 100 mEq/L (98-107); Glucose 147 mg/dL (70-105); Osmolality,Calculated 296 (280-300); Sodium 140 mEq/L (136-145); eGFR For African Americans > 60 (> 60); eGFR For Non-African Americans > 60 (> 60)
[2018-01-19] MEDS: Furosemide 40 MG TABLET PO SCH ×2 (08:14→16:02)
[2018-01-19] MEDS: Cholecalciferol (D-3) 1,000 UNIT TABLET PO SCH (08:14)
[2018-01-19] MEDS: predniSONE 10 MG TABLET PO SCH (08:14)
[2018-01-19] MEDS: Lisinopril 20 MG TABLET PO SCH (08:14)
[2018-01-19] MEDS: *HR* Rivaroxaban 10 MG TABLET PO SCH (08:20)
--- NOTE | 2018-01-19 08:37 | Infectious Disease Progress No ---
Date of Encounter: 01/19/18 Time of Encounter: 08:00 - Assessment and Plan (1) Sepsis Current Visit: Yes Status: Resolved Present upon admission Now resolved with 0 SIRS criteria present MRSA bacteremia and MRSA UTI Enterococcus UTI Patient has been receiving steroids, possibly contributory to WBC Qualifiers: Sepsis type: sepsis due to unspecified organism Qualified Code(s): A41.9 - Sepsis, unspecified organism (2) Bacteremia Current Visit: Yes Status: Acute MRSA Bacteremia Complicated due to presence of bilateral prosthetic joints Source currently unclear Suspect skin source that passed through the urine caused MRSA in urine, though can't rule out UTI as source Left lower extremity warmth suggestive of cellulitis or recent cellulitis No stigmata of IE appreciated Blood cultures on 01/15: 2/ positive for MRSA Blood cultures on 01/16: 2/ negative preliminarily TTE performed on 01/16: EF 60-65% with mild diastolic dysfunction, no vegetation seen One major and one minor criteria present Recommend obtaining MERLINE for further visualization We will need PICC prior to discharge Continue vancomycin (3) UTI (urinary tract infection) Current Visit: No Status: Ruled-out Catheter associated UTI Urine culture positive for MRSA and enterococcus Patient has received 3 days of cefepime Patient has received one day ceftriaxone Currently on vancomycin day 2 Qualifiers: Urinary tract infection type: catheter-associated UTI Indwelling urinary catheter type: indwelling urethral catheter Encounter type: initial encounter Qualified Code(s): T83.511A - Infection and inflammatory reaction due to indwelling urethral catheter, initial encounter; N39.0 - Urinary tract infection , site not specified; N39.0 - Urinary tract infection, site not specified (4) Knee joint replacement status Current Visit: Yes Status: Acute Presence of bilateral knee replacements complicates MRSA bacteremia No erythema, warmth, or tenderness present in bilateral knees Qualifiers: Laterality: bilateral Qualified Code(s): Z96.653 - Presence of artificial knee joint, bilateral (5) Venous stasis Current Visit: Yes Status: Acute Patient has venous stasis with chronic skin changes present on bilateral lower extremities Some evidence of scabs on lower extremities could be a nidus of MRSA entrance (6) Chronic indwelling Adame catheter Current Visit: Yes Status: Acute Patient has history of UTIs Presented with MRSA and enterococcus UTI Plan as above (7) Metastatic disease Current Visit: Yes Status: Acute Findings on CT examination suspicious for metastatic disease stemming from the esophagus Consider GI consult for further evaluation - Subjective Interval history: He reports that he is doing fine without problems this morning. He denies having fever, chills, nausea, abdominal pain, chest pain, or lightheadedness. He reports having some mild weakness. He reports that his left lower extremity is slightly more swelled than usual right now, but thinks it is because he is down to taking just one lasix a day prior to admission. He has been afebrile, stable vitals, and improvement in his WBC Infect Dis PN-Objective Data - Labs CBC & Chem 7: 01/19/18 04:26 01/19/18 04:26 Labs: Laboratory Results - last 24 hr 01/18/18 01/18/18 01/18/18 11:57 16:14 20:39 WBC RBC Hgb Hct MCV MCH MCHC RDW Plt Count MPV Immature Gran % Seg Neutrophils % Lymphocytes % Monocytes % Eosinophils % Basophils % Neutrophils # Lymphocytes # Monocytes # Eosinophils # Basophils # Sodium Potassium Chloride Carbon Dioxide BUN Creatinine Est GFR ( Amer) Est GFR (Non-Af Amer) BUN/Creatinine Ratio Glucose POC Glucose 290 H 288 H Calculated Osmolality Calcium Vancomycin Trough 23.4 H* 01/18/18 01/19/18 01/19/18 21:11 04:26 04:26 WBC 9.5 RBC 3.67 L Hgb 10.4 L Hct 34.2 L MCV 93.2 MCH 28.3 MCHC 30.4 L RDW 13.8 Plt Count 321 MPV 10.5 Immature Gran % 0.8 Seg Neutrophils % 69.7 Lymphocytes % 15.1 Monocytes % 13.0 Eosinophils % 1.3 Basophils % 0.1 Neutrophils # 6.6 Lymphocytes # 1.4 Monocytes # 1.2 Eosinophils # 0.1 Basophils # 0.0 Sodium 140 Potassium 4.0 Chloride 100 Carbon Dioxide 35 H BUN 23 Creatinine 0.97 Est GFR ( Amer) > 60 Est GFR (Non-Af Amer) > 60 BUN/Creatinine Ratio 24 Glucose 147 H POC Glucose 225 H Calculated Osmolality 296 Calcium 8.6 Vancomycin Trough Cultures: Cultures 01/16/18 06:53 Blood Culture - Preliminary Peripheral Venipuncture No growth. 01/16/18 06:53 Blood Culture - Preliminary Peripheral Venipuncture No growth. Exam - Constitutional Vitals: Temp Pulse Resp BP Pulse Ox 98.5 F 85 20 131/85 96 01/19/18 08:21 01/19/18 08:21 01/19/18 08:21 01/19/18 08:21 01/19/18 08:21 - Additional findings Additional findings: General: Cooperative, pleasant, no acute distress, alert and oriented 3, answers questions appropriately HEENT: Normocephalic, atraumatic, neck supple, trachea midline, Conjunctiva pink , sclera anicteric, oral mucosa moist, no orophargeal erythema or exudates, no conjunctival hemorrhages noted, anterior cervical LAD appreciated Respiratory: No accessory muscle usage, clear to auscultation bilaterally, no wheezes/rhonchi/rales appreciated Cardiovascular: Regular rate and rhythm, S1 and S2 present, no murmurs/rubs/ gallops/clicks appreciated GI/abdominal: Nondistended, nontender, soft, normal bowel sounds, no peritoneal signs Extremities: No calf tenderness, chronic darkening of skin from venous stasis in bilateral lower extremities, 2+ pedal edema appreciated bilaterally, increased diameter of left lower extremity (chronic), left lower extremity warmth present, lower extremity pulses palpable and symmetrical, no stigmata of endocarditis, no tenderness elicited in any joints aside from right hip ( previous soft ball accident, unchanged tenderness), no swelling, erythema, or warmth noted in any joints or in spine Neurological: Alert and oriented 3, no facial droop, no focal deficits Consult Discharge Plan - Plan Referrals: Bulmaro Negro MD [Primary Care Provider] - - Attending Attestation I examined this patient and my medical decision-making was reviewed with the Resident Physician. I agree with the documented findings, disposition and treatment plan as described except to the extent set forth below.
--- NOTE | 2018-01-19 11:43 | Internal Med Progress Note ---
<Aubrey Elam - Last Filed: 01/19/18 11:38> Date of Encounter: 01/19/18 Time of Encounter: 11:00 - Assessment and plan (1) Sepsis Current Visit: Yes Status: Resolved Assessment and plan: Patient meets sepsis on admission with tachycardia, fever, and UTI. Sepsis most likely secondary to MRSA bacteremia. Patient afebrile and in no acute distress. Blood cultures positive for MRSA x 2 on 01/15/18. Urine culture positive for MRSA and Enterococcus. WBC 9.5 today. Repeat blood cx neg thus far. Echocardiogram no overt vegetation. 1. Continue IV Vancomycin Day 5. 2. Continue to monitor the patient closely. Qualifiers: Sepsis type: sepsis due to unspecified organism Qualified Code(s): A41.9 - Sepsis, unspecified organism (2) MRSA bacteremia Current Visit: Yes Status: Resolved Assessment and plan: Patient afebrile and in no acute distress. Blood cultures positive for MRSA x 2 on 01/15/18. Urine culture positive for MRSA and Enterococcus. WBC decreased to 9.5 today. currently on steroids. Repeat blood cx neg thus far. Echocardiogram no overt vegetation. 1. Continue IV Vancomycin Day 5. 2. Continue to monitor the patient closely. 3. Awaiting ID recommendations. Possible MERLINE will be needed. (3) COPD with acute exacerbation Current Visit: Yes Status: Resolved Assessment and plan: Seems to be improving. Continue IV abx and steroids. Supplement with oxygen as needed. (4) Acute respiratory failure with hypoxia Current Visit: Yes Status: Resolved Assessment and plan: Acute respiratory failure with hypoxia most likely secondary to acute exacerbation of COPD. Pt with oxygen saturation of 87% on room air on admit. Current oxygen saturation of 94% on room air during exam. Continue to monitor. (5) Cellulitis of both lower extremities Current Visit: Yes Status: Acute Assessment and plan: Appear to be slowly improving. Has significant venous stasis bilaterally. Continue IV abx. (6) Hypertension Current Visit: No Status: Chronic Assessment and plan: Controlled at this time. Continue current medications. Qualifiers: Hypertension type: essential hypertension Qualified Code(s): I10 - Essential (primary) hypertension (7) Diabetes mellitus Current Visit: No Status: Chronic Assessment and plan: Currently on accuchecks and coverage. Qualifiers: Diabetes mellitus type: type 2 Diabetes mellitus complication status: with hyperglycemia Diabetes mellitus jail insulin use: without termite control representative use Qualified Code(s): E11.65 - Type 2 diabetes mellitus with hyperglycemia (8) A-fib Current Visit: No Status: Chronic Assessment and plan: Rate controlled.Remains on Xarelto. Qualifiers: Atrial fibrillation type: chronic Qualified Code(s): I48.2 - Chronic atrial fibrillation (9) UTI (urinary tract infection) Current Visit: Yes Status: Acute Assessment and plan: Pt with chronic tomlinson and UTI on admission. Tomlinson catheter changed yesterday morning by Dr. Goldberg. Urine culture with MRSA. On IV abx at this time. Qualifiers: Urinary tract infection type: catheter-associated UTI Indwelling urinary catheter type: indwelling urethral catheter Encounter type: subsequent encounter Qualified Code(s): T83.511D - Infection and inflammatory reaction due to indwelling urethral catheter, subsequent encounter; N39.0 - Urinary tract infection, site not specified; N39.0 - Urinary tract infection, site not specified (10) Right hip pain Current Visit: Yes Status: Chronic Assessment and plan: Due to osteoarthritis. Monitoring closely in light of bacteremia. (11) Acute diastolic (congestive) heart failure Current Visit: No Status: Resolved Assessment and plan: Appears to be slowly improving. Continue PO Lasix. Echocardiogram EF of 60-65%. - Time Spent With Patient 25 - 35 minutes - Subjective Interval history: The patient was seen and evaluated at bedside this morning. Patient was afebrile and appears in no acute distress. Patient states that he feels better today and the new tomlinson catheter is not giving him an trouble. The patient stated that he notice when he takes Lasix twice a day, the swelling in his lower extremities improve more than when he takes Lasix once a day. He stated that he would like to be continued on Lasix twice a day. Patient denies any fever, headaches, vision changes, chest pain, shortness of breath, difficulty breathing, abdominal pain, diarrhea, nausea and vomiting, dysuria, numbness and tingling, and any weaknesses. Patient has no other concerns at this time. - Constitutional Vitals: Temp Pulse Resp BP Pulse Ox 98.7 F 70 16 125/80 94 01/19/18 11:04 01/19/18 11:04 01/19/18 11:34 01/19/18 11:04 01/19/18 11:34 General appearance: Present: A&O X 3, obese, answers questions appropriately - Head Head exam: Present: atraumatic, normocephalic - Eye Eye exam: Present: PERRL, conjuntiva pink, sclera anicteric Pupils: Present: PERRL - ENT ENT exam: Present: mucous membranes dry - Neck Neck exam general surgery: Present: supple, trachea midline. Absent: lymphadenopathy - Respiratory Respiratory exam: Present: CTAB. Absent: accessory muscle use, rales, rhonchi, wheezes - Cardiovascular Cardiovascular exam: Present: RRR, +S1, +S2. Absent: diastolic murmur, gallop, rubs, systolic murmur - GI/Abdominal GI/Abdominal exam: Present: normal bowel sounds, soft, no peritoneal signs. Absent: distended, tenderness Additional comments: Patient is morbidly obese. - exam: Absent: scrotal swelling, urethral discharge Additional comments: Tomlinson catheter is in place. Urine in bag has no blood. - Extremities Exam Extremities exam: Present: pedal edema, warm, radial pulses palpable and symmetrical. Absent: calf tenderness, joint swelling, tenderness Additional comments: Cellulitis present on bilateral lower extremities with chronic venous stasis. Distal pulses +2/4 bilaterally. Trace pitting present on bilateral LE. Bilateral lower extremities are mildly swollen. - Neurological Exam Neurological exam: Present: CN II-XII intact, oriented X3, no focal deficits. Absent: pronater drift, facial droop, speech deficit - Skin Skin exam: Present: dry, intact Internal Medicine: Result - Labs CBC & Chem 7: 01/19/18 04:26 01/19/18 04:26 Labs: Short CBC 01/19/18 Range/Units 04:26 WBC 9.5 (4.3-11.1) K/mcL Hgb 10.4 L (12.9-16.9) g/dL Hct 34.2 L (37.5-50.1) % Plt Count 321 (140-400) K/mcL Neutrophils # 6.6 (1.6-8.9) K/mcL BMP 01/19/18 04:26 Sodium 140 Potassium 4.0 Chloride 100 Carbon Dioxide 35 H BUN 23 Creatinine 0.97 Glucose 147 H Calcium 8.6 - ABG Interpretation ABG results: ABG ABG pH 7.41 pH Units (7.32-7.45) 01/15/18 15:59 ABG pCO2 46 mmHg (35-45) H 01/15/18 15:59 ABG pO2 79 mmHg (85-104) L 01/15/18 15:59 ABG O2 Saturation 96 % (95-98) 01/15/18 15:59 PT/INR, D-dimer PT 17.8 Seconds (9.4-12.1) H 01/15/18 09:11 Consult Discharge Plan - Plan Referrals: Bulmaro Negro MD [Primary Care Provider] - <Everette Adams H - Last Filed: 01/19/18 16:17> Date of Encounter: 01/19/18 - Constitutional Vitals: Temp Pulse Resp BP Pulse Ox 98.7 F 70 16 125/80 94 01/19/18 11:04 01/19/18 11:04 01/19/18 16:14 01/19/18 11:04 01/19/18 16:14 Internal Medicine: Result - Labs CBC & Chem 7: 01/19/18 04:26 01/19/18 04:26 Labs: Short CBC 01/19/18 Range/Units 04:26 WBC 9.5 (4.3-11.1) K/mcL Hgb 10.4 L (12.9-16.9) g/dL Hct 34.2 L (37.5-50.1) % Plt Count 321 (140-400) K/mcL Neutrophils # 6.6 (1.6-8.9) K/mcL BMP 01/19/18 04:26 Sodium 140 Potassium 4.0 Chloride 100 Carbon Dioxide 35 H BUN 23 Creatinine 0.97 Glucose 147 H Calcium 8.6 - ABG Interpretation ABG results: ABG ABG pH 7.41 pH Units (7.32-7.45) 01/15/18 15:59 ABG pCO2 46 mmHg (35-45) H 01/15/18 15:59 ABG pO2 79 mmHg (85-104) L 01/15/18 15:59 ABG O2 Saturation 96 % (95-98) 01/15/18 15:59 PT/INR, D-dimer PT 17.8 Seconds (9.4-12.1) H 01/15/18 09:11 - Attending Attestation Sepsis secondary to MRSA bacteremia Continue vancomycin I examined this patient and my medical decision-making was reviewed with the Resident Physician. I agree with the documented findings, disposition and treatment plan as described except to the extent set forth below.
--- NOTE | 2018-01-19 12:29 | Gastroenterology Consult Note ---
<Shirley Huang M - Last Filed: 01/19/18 12:26> Date of Encounter: 01/19/18 Time of Encounter: 10:00 - Assessment and plan (1) Abnormal CT of the abdomen Status: Acute Assessment and plan: 72 year old male who presents with UTI and sepsis. CT abdomen shows thickening at the GE junction with adenopathy which is concerning for metastatic disease. Was discussed with pt that will need to hold xarelto for at least 24 hours based on creatinine clearance of 134. He states he is not having any symptoms and does not want any scopes especially if it means he has to stay in the hospital longer. Will discuss with Dr Rodriguez. - Time Spent With Patient Total time spent is greater than 50% in coordination of care (as documented) at patient's floor/unit and/or counseling patient: GI History of Present Illness - Data of Consult Patient: new to practice Consult date: 01/19/18 Requesting Physician: Ananda Caba DO - Consult Narrative Reason for consult: abnormal CT History of present illness: Mr. Jimenez is a 72 year old male with known PMH of Paroxysmal atrial fibrillation , Diastolic CHF, diabetes, GERD, hypertension, chronic venous stasis and chronic indwelling tomlinson cathter for urinary retention. He presented to the ER with fever 102 at home and was admitted with UTI and sepsis. Blood cultures were positive for MRSA. He complained of some lower abdominal discomfort and CT abdomen was done which showed suspected wall thickening near the gastroesophageal junction. While this appearance could be seen with esophagitis (especially given the presence of a small sliding hiatal hernia), there are new abnormal bilateral paraesophageal and retrocrural lymph nodes suspicious for metastatic disease. He also c/o worsening swelling and erythema in both legs. He denied any CP. He is alert, awake and O x 3. He denies GERD, nausea vomiting, abdominal pain, diarrhea or constipation. He denies bloody or tarry stools. He is on xarelto for a-fib which he had this am. He also had a cardiac diet this morning. Colonoscopy: denies EGD: EGD that showed bleeding ulcers? NSAIDS/ASA: denies Anticoagulants: xarelto Past Med Surg Social Fam HX - Past Medical History Medical history: atrial fibrillation, CHF, diabetes, GERD, hypertension, venous stasis Psychiatric history: no psych history - Past Surgical History Surgical History: appendectomy, herniorrhaphy, knee replacement (Bilateral), orthopedic, other - Social History Smoking Status: Never smoker Smokeless Tobacco Status: No Alcohol use: none Drug use: none - Family History Mother Living Status: Hx Family Cardiac Disorders: Yes (HTN) Father Living Status: Hx Family Cardiac Disorders: Yes (CHF) Hx Family Respiratory Disorders: No Hx Family Cancer: No Hx Family Endocrine Disorder: No Review of Systems: GI: as per [facility] GENERAL: fever 102 at home, has some chills EYES: denies yellow discoloration ENT: denies pain with swallowing or difficulty swallowing CARDIO: denies chest pain, palpitations RESP: Shortness of breath with exertion : denies change in color of urine NEURO: chronic weakness HEME: Denies any bruising MS: chronic back and joint pain. DERM: chronic cellulitis BLE PSYCH: Denies history of anxiety or depression - Constitutional Vitals: Temp Pulse Resp BP Pulse Ox 98.7 F 70 16 125/80 94 01/19/18 11:04 01/19/18 11:04 01/19/18 11:34 01/19/18 11:04 01/19/18 11:34 Exam: CONSTITUTIONAL:~alert, no acute distress.~HEAD:~normocephalic.~EYES:~no jaundice.~NECK:~no obvious swelling.~HEART:~irregular rate and rhythm, no murmurs.~LUNGS:~bilateral fair air entry.~ABDOMEN:~non distended, soft, non tender, no masses palpable, no organomegaly.~RECTAL EXAM:~Deferred.~EXTREMITIES: ~no clubbing, or cyanosis or trace BLE edema.~SKIN:~pallor noted, no stigmata of chronic liver disease.~NEUROLOGIC:~no obvious focal defect.~~~~ Results - Labs CBC & Chem 7: 01/19/18 04:26 01/19/18 04:26 Labs: Last Result Calcium 8.6 mg/dL (8.6-10.3) 01/19/18 04:26 Troponin I < 0.03 ng/mL (< 0.04) 01/15/18 09:11 Entire Visit Hgb 10.4 g/dL (12.9-16.9) L 01/19/18 04:26 Hct 34.2 % (37.5-50.1) L 01/19/18 04:26 PT 17.8 Seconds (9.4-12.1) H 01/15/18 09:11 Total Bilirubin 0.5 mg/dL (0.3-1.0) 01/15/18 09:11 AST 10 Units/L (13-39) L 01/15/18 09:11 ALT 9 Units/L (7-52) 01/15/18 09:11 E. coli (PCR) Not Detected (Not Detect) 01/15/18 09:11 - ABG ABG results: ABG ABG pH 7.41 pH Units (7.32-7.45) 01/15/18 15:59 ABG pCO2 46 mmHg (35-45) H 01/15/18 15:59 ABG pO2 79 mmHg (85-104) L 01/15/18 15:59 ABG O2 Saturation 96 % (95-98) 01/15/18 15:59 PT/INR, D-dimer PT 17.8 Seconds (9.4-12.1) H 01/15/18 09:11 Consult Discharge Plan - Plan Instructions: Cellulitis (DC), Tomlinson Catheter Placement and Care (DC) Referrals: [facility] [Provider Group] Bulmaro Negro MD [Primary Care Provider] - 01/25/18 1:30 pm Jovani Goldberg MD [Partnered Physician] - Prescriptions: HYDROcodone/Acet 5/325 mg [Hinkley 5-325 mg] 1 tab PO Q6HR PRN 7 Days #28 tablet PRN Reason: Moderate Pain Omeprazole [PriLOSEC] 40 mg PO BID #60 cap predniSONE [PredniSONE] 10 mg PO DAILY #18 tablet Vancomycin [Vancocin] 750 mg IV Q12H #32 vial <Hugo Rodriguez - Last Filed: 01/31/18 14:25> Date of Encounter: 01/19/18 - Time Spent With Patient Total time spent is greater than 50% in coordination of care (as documented) at patient's floor/unit and/or counseling patient: GI History of Present Illness - Data of Consult Requesting Physician: Jude Yi MD - Consult Narrative History of present illness: Mr. Jimenez is a 72 year old male - Constitutional Vitals: Temp Pulse Resp BP Pulse Ox 98.6 F 81 16 144/82 96 01/28/18 19:18 01/28/18 19:18 01/28/18 19:35 01/28/18 19:18 01/28/18 19:35 Results - Labs CBC & Chem 7: 01/28/18 04:31 01/28/18 04:00 Labs: Last Result Calcium 8.5 mg/dL (8.6-10.3) L 01/28/18 04:00 Troponin I < 0.03 ng/mL (< 0.04) 01/15/18 09:11 Entire Visit Hgb 10.7 g/dL (12.9-16.9) L 01/28/18 04:31 Hct 34.4 % (37.5-50.1) L 01/28/18 04:31 PT 17.8 Seconds (9.4-12.1) H 01/15/18 09:11 Total Bilirubin 0.5 mg/dL (0.3-1.0) 01/15/18 09:11 AST 10 Units/L (13-39) L 01/15/18 09:11 ALT 9 Units/L (7-52) 01/15/18 09:11 E. coli (PCR) Not Detected (Not Detect) 01/15/18 09:11 - ABG ABG results: ABG ABG pH 7.41 pH Units (7.32-7.45) 01/15/18 15:59 ABG pCO2 46 mmHg (35-45) H 01/15/18 15:59 ABG pO2 79 mmHg (85-104) L 01/15/18 15:59 ABG O2 Saturation 96 % (95-98) 01/15/18 15:59 PT/INR, D-dimer PT 17.8 Seconds (9.4-12.1) H 01/15/18 09:11 - Attending Attestation Mr. Jimenez is a 72-year-old 72-year-old male who is cuts dysphagia who complains of dysphagia has some thickening on a on CT scan of the GE junction and some lymph nodes so would recommend upper endoscopy consider ultrasonographic take biopsies as well as dilate his esophagus if indicated at the time of endoscopy. Further recommendations after endoscopy thank you very much for this consultation I have personally performed a face to face evaluation on this patient. I have reviewed and agree with the care plan. History and Exam by me shows:
[2018-01-20] MEDS: *HR* HYDROcodone/Acet 5/325 mg TABLET PO PRN (00:56)
[2018-01-20] MEDS: Ipratropium/Albuterol Neb 3 ML IH SCH ×5 (03:54→20:36)
[2018-01-20 06:01] LABS: Basophils % 0.2 %; Eosinophils # 0.2 K/mcL (0.0-0.6); Hematocrit 34.1 % (37.5-50.1); Hemoglobin 10.2 g/dL (12.9-16.9); Lymphocytes # 1.7 K/mcL (0.6-4.6); Lymphocytes % 14.4 %; Mean Corpuscular HGB Conc 29.9 g/dL (31.6-35.5); Mean Corpuscular Hemoglobin 28.2 pg (28.0-33.3); Mean Corpuscular Volume 94.2 fL (83.0-100.0); Mean Platelet Volume 10.6 fL (9.4-12.4); Monocytes # 1.3 K/mcL (0.0-1.3); Monocytes % 10.6 %; Neutrophils # 8.6 K/mcL (1.6-8.9); Platelet Count 332 K/mcL (140-400); Red Blood Count 3.62 M/mcL (4.19-5.50); Red Cell Distribution Width 13.5 % (11.5-14.5); Segmented Neutrophils % 71.8 %
[2018-01-20 06:14] LABS: BUN/Creatinine Ratio 22 (6-26); Blood Urea Nitrogen 22 mg/dL (8-23); Calcium 8.5 mg/dL (8.6-10.3); Carbon Dioxide 39 mEq/L (23-29); Chloride 95 mEq/L (98-107); Glucose 176 mg/dL (70-105); Osmolality,Calculated 290 (280-300); Potassium 3.9 mEq/L (3.5-5.1); Sodium 136 mEq/L (136-145); eGFR For African Americans > 60 (> 60); eGFR For Non-African Americans > 60 (> 60)
[2018-01-20] MEDS: Furosemide 40 MG TABLET PO SCH ×2 (08:14→17:56)
[2018-01-20] MEDS: predniSONE 10 MG TABLET PO SCH (08:14)
[2018-01-20] MEDS: Cholecalciferol (D-3) 1,000 UNIT TABLET PO SCH (08:15)
[2018-01-20] MEDS: Lisinopril 20 MG TABLET PO SCH (08:15)
[2018-01-20] MEDS: Insulin LISPRO 300 UNITS/3 ML VIAL SQ SCH ×4 (08:15→21:50)
[2018-01-20] MEDS: *HR* Rivaroxaban 10 MG TABLET PO SCH (08:15)
--- NOTE | 2018-01-20 09:13 | Infectious Disease Progress No ---
Date of Encounter: 01/20/18 Time of Encounter: 08:45 - Assessment and Plan (1) Sepsis Current Visit: Yes Status: Resolved Present upon admission Now resolved with 1 SIRS criteria present - Leukocytosis MRSA bacteremia and MRSA UTI Enterococcus UTI Patient has been receiving steroids, possibly contributory to WBC Qualifiers: Sepsis type: sepsis due to unspecified organism Qualified Code(s): A41.9 - Sepsis, unspecified organism (2) Bacteremia Current Visit: Yes Status: Acute MRSA Bacteremia Complicated due to presence of bilateral prosthetic joints Source currently unclear Suspect skin source that passed through the urine caused MRSA in urine, though can't rule out UTI as source Left lower extremity warmth suggestive of cellulitis or recent cellulitis No stigmata of IE appreciated Blood cultures on 01/15: 2/ positive for MRSA Blood cultures on 01/16: 2 negative preliminarily TTE performed on 01/16: EF 60-65% with mild diastolic dysfunction, no vegetation seen One major and one minor criteria present Recommend obtaining MERLINE for further visualization PICC line will be placed today Continue vancomycin for at least 4 weeks for complicated bacteremia Will hold on rifampin given patient is also on Xarelto, the current risk of thrombus is greater than the need for fiampin He will require weekly labs: BCB, BMP, Vanc trough, ESR/CRP Follow up with ID 2 weeks post discharge (3) UTI (urinary tract infection) Current Visit: No Status: Ruled-out Catheter associated UTI Urine culture positive for MRSA and enterococcus Patient has received 3 days of cefepime Patient has received one day ceftriaxone Currently on vancomycin day 3 Qualifiers: Urinary tract infection type: catheter-associated UTI Indwelling urinary catheter type: indwelling urethral catheter Encounter type: initial encounter Qualified Code(s): T83.511A - Infection and inflammatory reaction due to indwelling urethral catheter, initial encounter; N39.0 - Urinary tract infection , site not specified; N39.0 - Urinary tract infection, site not specified (4) Knee joint replacement status Current Visit: Yes Status: Acute Presence of bilateral knee replacements complicates MRSA bacteremia No erythema, warmth, or tenderness present in bilateral knees Will not give rifampin as patient is also on Xarelto Qualifiers: Laterality: bilateral Qualified Code(s): Z96.653 - Presence of artificial knee joint, bilateral (5) Venous stasis Current Visit: Yes Status: Acute Patient has venous stasis with chronic skin changes present on bilateral lower extremities Some evidence of scabs on lower extremities could be a nidus of MRSA entrance (6) Chronic indwelling Adame catheter Current Visit: Yes Status: Acute Patient has history of UTIs Presented with MRSA and enterococcus UTI Plan as above (7) Metastatic disease Current Visit: Yes Status: Acute Findings on CT examination suspicious for metastatic disease stemming from the esophagus Consider GI consult for further evaluation - Subjective Interval history: Patient denies concerns/complaints this morning. He states the pain in his right hip is the same as it has been for months and reports no other joint soreness or tenderness. He feels as if some successful diuresis has been taking place. He denies have fever, chills, lightheadedness, nausea, abdominal pain, chest pain, or shortness of breath. Patient has been afebrile, has had stable vitals, but patient WBC is slightly elevated today (11.9). Infect Dis PN-Objective Data - Labs CBC & Chem 7: 01/20/18 04:18 01/20/18 04:18 Labs: Laboratory Results - last 24 hr 01/19/18 01/19/18 01/19/18 09:01 11:08 15:33 WBC RBC Hgb Hct MCV MCH MCHC RDW Plt Count MPV Immature Gran % Seg Neutrophils % Lymphocytes % Monocytes % Eosinophils % Basophils % Neutrophils # Lymphocytes # Monocytes # Eosinophils # Basophils # Sodium Potassium Chloride Carbon Dioxide BUN Creatinine Est GFR ( Amer) Est GFR (Non-Af Amer) BUN/Creatinine Ratio Glucose POC Glucose 224 H 355 H Calculated Osmolality Calcium Random Vancomycin 16.2 01/20/18 01/20/18 04:18 04:18 WBC 11.9 H RBC 3.62 L Hgb 10.2 L Hct 34.1 L MCV 94.2 MCH 28.2 MCHC 29.9 L RDW 13.5 Plt Count 332 MPV 10.6 Immature Gran % 1.0 Seg Neutrophils % 71.8 Lymphocytes % 14.4 Monocytes % 10.6 Eosinophils % 2.0 Basophils % 0.2 Neutrophils # 8.6 Lymphocytes # 1.7 Monocytes # 1.3 Eosinophils # 0.2 Basophils # 0.0 Sodium 136 Potassium 3.9 Chloride 95 L Carbon Dioxide 39 H BUN 22 Creatinine 0.99 Est GFR ( Amer) > 60 Est GFR (Non-Af Amer) > 60 BUN/Creatinine Ratio 22 Glucose 176 H POC Glucose Calculated Osmolality 290 Calcium 8.5 L Random Vancomycin Cultures: Cultures 01/16/18 06:53 Blood Culture - Preliminary Peripheral Venipuncture No growth. 01/16/18 06:53 Blood Culture - Preliminary Peripheral Venipuncture No growth. Exam - Constitutional Vitals: Temp Pulse Resp BP Pulse Ox 99 F 89 18 131/71 96 01/20/18 08:27 01/20/18 08:27 01/20/18 08:27 01/20/18 08:27 01/20/18 08:27 - Additional findings Additional findings: General: Cooperative, pleasant, no acute distress, alert and oriented 3, answers questions appropriately HEENT: Normocephalic, atraumatic, neck supple, trachea midline, Conjunctiva pink , sclera anicteric, oral mucosa moist, no orophargeal erythema or exudates, no conjunctival hemorrhages noted, anterior cervical LAD appreciated Respiratory: No accessory muscle usage, clear to auscultation bilaterally, no wheezes/rhonchi/rales appreciated Cardiovascular: Regular rate and rhythm, S1 and S2 present, no murmurs/rubs/ gallops/clicks appreciated GI/abdominal: Nondistended, nontender, soft, normal bowel sounds, no peritoneal signs Extremities: No calf tenderness, chronic darkening of skin from venous stasis in bilateral lower extremities, 1+ pedal edema appreciated on patient right, 2-3 + pedal edema on patient left, increased diameter of left lower extremity ( chronic), left lower extremity warmth present, lower extremity pulses palpable and symmetrical, no stigmata of endocarditis, no tenderness elicited in any joints aside from right hip (previous soft ball accident, unchanged tenderness) , no swelling, erythema, or warmth noted in any joints or in spine, asumetric LE warmth notes with R LE warmth and possibly more erythema Neurological: Alert and oriented 3, no facial droop, no focal deficits Consult Discharge Plan - Plan Referrals: Bulmaro Negro MD [Primary Care Provider] - 01/25/18 1:30 pm - Attending Attestation I examined this patient and my medical decision-making was reviewed with the Resident Physician. I agree with the documented findings, disposition and treatment plan as described except to the extent set forth below.
--- NOTE | 2018-01-20 09:54 | Internal Med Progress Note ---
<Aubrey Elam - Last Filed: 01/20/18 09:52> Date of Encounter: 01/20/18 Time of Encounter: 09:30 - Assessment and plan (1) Sepsis Current Visit: Yes Status: Resolved Assessment and plan: Patient meets sepsis on admission with tachycardia, fever, and UTI. Sepsis most likely secondary to MRSA bacteremia. Patient afebrile and in no acute distress. Blood cultures positive for MRSA x 2 on 01/15/18. Urine culture positive for MRSA and Enterococcus. WBC 9.5 today. Repeat blood cx neg thus far. Echocardiogram no overt vegetation. 1. Continue IV Vancomycin Day 6. 2. Continue to monitor the patient closely. Qualifiers: Sepsis type: sepsis due to unspecified organism Qualified Code(s): A41.9 - Sepsis, unspecified organism (2) MRSA bacteremia Current Visit: Yes Status: Resolved Assessment and plan: Patient afebrile and in no acute distress. Blood cultures positive for MRSA x 2 on 01/15/18. Urine culture positive for MRSA and Enterococcus. WBC increase to 11.9 today from 9.5 yesterday. Currently on steroids. Repeat blood cx neg thus far. Echocardiogram no overt vegetation. 1. Continue IV Vancomycin Day 6. 2. Per ID: Bacteremia complicated due to presence of bilateral prosthetic joints with source currently unclear. Lower extremity cellulitis vs. UTI. Recommend obtaining MERLINE for further visualization. PICC line will be placed today. Continue vancomycin for at least 4 weeks for complicated bacteremia. Will hold on rifampin given patient is also on Xarelto, the current risk of thrombus is greater than the need for rifampin. He will require weekly labs: BCB , BMP, Vanc trough, ESR/CRP Follow up with ID 2 weeks post discharge (3) COPD with acute exacerbation Current Visit: Yes Status: Resolved Assessment and plan: Seems to be improving. Continue IV abx and steroids. Supplement with oxygen as needed. (4) Acute respiratory failure with hypoxia Current Visit: Yes Status: Resolved Assessment and plan: Acute respiratory failure with hypoxia most likely secondary to acute exacerbation of COPD. Pt with oxygen saturation of 87% on room air on admit. Current oxygen saturation of 96% on 4L NC. Continue to monitor. (5) Cellulitis of both lower extremities Current Visit: Yes Status: Acute Assessment and plan: Appear to be slowly improving. Has significant venous stasis bilaterally. Continue IV abx. (6) Hypertension Current Visit: No Status: Chronic Assessment and plan: Controlled at this time. Continue current medications. Qualifiers: Hypertension type: essential hypertension Qualified Code(s): I10 - Essential (primary) hypertension (7) Diabetes mellitus Current Visit: No Status: Chronic Assessment and plan: Currently on accuchecks and coverage. Qualifiers: Diabetes mellitus type: type 2 Diabetes mellitus complication status: with hyperglycemia Diabetes mellitus intermediate teacher insulin use: without intermediate teacher use Qualified Code(s): E11.65 - Type 2 diabetes mellitus with hyperglycemia (8) A-fib Current Visit: No Status: Chronic Assessment and plan: Rate controlled.Remains on Xarelto. Qualifiers: Atrial fibrillation type: chronic Qualified Code(s): I48.2 - Chronic atrial fibrillation (9) UTI (urinary tract infection) Current Visit: Yes Status: Acute Assessment and plan: Pt with chronic tomlinson and UTI on admission. Urine culture with MRSA. New tomlinson catheter changed on 01/18/[address] Goldberg. On IV abx at this time. Qualifiers: Urinary tract infection type: catheter-associated UTI Indwelling urinary catheter type: indwelling urethral catheter Encounter type: subsequent encounter Qualified Code(s): T83.511D - Infection and inflammatory reaction due to indwelling urethral catheter, subsequent encounter; N39.0 - Urinary tract infection, site not specified; N39.0 - Urinary tract infection, site not specified (10) Right hip pain Current Visit: Yes Status: Chronic Assessment and plan: Due to osteoarthritis. Monitoring closely in light of bacteremia. (11) Acute diastolic (congestive) heart failure Current Visit: No Status: Resolved Assessment and plan: Appears to be slowly improving.Continue PO Lasix. Echocardiogram EF of 60-65%. - Time Spent With Patient less than 15 minutes - Subjective Interval history: The patient was seen and evaluated at bedside this morning. Patient was afebrile and appears in no acute distress. Patient states that he feels good today and the new tomlinson catheter is not giving him any trouble. Per note, Lius A stated that the patient did not want any scopes completed because he was asymptomatic and did not want to stay in the hospital longer. Today he states that he is willing to "do whatever you think is best. If I need to get scoped then do it". Patient denies any fever, headaches, vision changes, chest pain , shortness of breath, difficulty breathing, abdominal pain, diarrhea, nausea and vomiting, dysuria, numbness and tingling, and any weaknesses. Patient has no other concerns at this time. - Constitutional Vitals: Temp Pulse Resp BP Pulse Ox 99 F 89 18 131/71 96 01/20/18 08:27 01/20/18 08:27 01/20/18 08:27 01/20/18 08:27 01/20/18 08:27 General appearance: Present: A&O X 3, obese, answers questions appropriately - Head Head exam: Present: atraumatic, normocephalic - Eye Eye exam: Present: PERRL, conjuntiva pink, sclera anicteric - ENT ENT exam: Present: mucous membranes dry - Neck Neck exam general surgery: Present: supple, trachea midline. Absent: lymphadenopathy - Respiratory Respiratory exam: Present: CTAB. Absent: accessory muscle use, rales, rhonchi, wheezes - Cardiovascular Cardiovascular exam: Present: RRR, +S1, +S2. Absent: diastolic murmur, gallop, rubs, systolic murmur - GI/Abdominal GI/Abdominal exam: Present: normal bowel sounds, soft, no peritoneal signs. Absent: distended, tenderness Additional comments: Obese abdomen. - exam: Absent: scrotal swelling, urethral discharge Additional comments: Tomlinson catheter is in place. Urine in the bag has no blood. - Extremities Exam Extremities exam: Present: pedal edema, warm, radial pulses palpable and symmetrical. Absent: calf tenderness, cyanotic, tenderness Additional comments: Cellulitis present on bilateral lower extremities with chronic venous stasis. Appears to be improving. Distal pulses +2/4 bilaterally. Trace pitting present on bilateral LE. Bilateral lower extremities are mildly swollen. - Neurological Exam Neurological exam: Present: CN II-XII intact, oriented X3, no focal deficits. Absent: pronater drift, facial droop, speech deficit - Skin Skin exam: Present: dry, intact Internal Medicine: Result - Labs CBC & Chem 7: 01/20/18 04:18 01/20/18 04:18 Labs: Short CBC 01/20/18 Range/Units 04:18 WBC 11.9 H (4.3-11.1) K/mcL Hgb 10.2 L (12.9-16.9) g/dL Hct 34.1 L (37.5-50.1) % Plt Count 332 (140-400) K/mcL Neutrophils # 8.6 (1.6-8.9) K/mcL [facility] 01/20/18 04:18 Sodium 136 Potassium 3.9 Chloride 95 L Carbon Dioxide 39 H BUN 22 Creatinine 0.99 Glucose 176 H Calcium 8.5 L - ABG Interpretation ABG results: ABG ABG pH 7.41 pH Units (7.32-7.45) 01/15/18 15:59 ABG pCO2 46 mmHg (35-45) H 01/15/18 15:59 ABG pO2 79 mmHg (85-104) L 01/15/18 15:59 ABG O2 Saturation 96 % (95-98) 01/15/18 15:59 PT/INR, D-dimer PT 17.8 Seconds (9.4-12.1) H 01/15/18 09:11 Consult Discharge Plan - Plan Referrals: Bulmaro Negro MD [Primary Care Provider] - 01/25/18 1:30 pm <Everette Adams H - Last Filed: 01/20/18 14:10> Date of Encounter: 01/20/18 - Constitutional Vitals: Temp Pulse Resp BP Pulse Ox 98.2 F 83 18 106/67 94 01/20/18 10:22 01/20/18 10:22 01/20/18 13:00 01/20/18 13:00 01/20/18 13:00 Internal Medicine: Result - Labs CBC & Chem 7: 01/20/18 04:18 01/20/18 04:18 Labs: Short CBC 01/20/18 Range/Units 04:18 WBC 11.9 H (4.3-11.1) K/mcL Hgb 10.2 L (12.9-16.9) g/dL Hct 34.1 L (37.5-50.1) % Plt Count 332 (140-400) K/mcL Neutrophils # 8.6 (1.6-8.9) K/mcL [facility] 01/20/18 04:18 Sodium 136 Potassium 3.9 Chloride 95 L Carbon Dioxide 39 H BUN 22 Creatinine 0.99 Glucose 176 H Calcium 8.5 L - ABG Interpretation ABG results: ABG ABG pH 7.41 pH Units (7.32-7.45) 01/15/18 15:59 ABG pCO2 46 mmHg (35-45) H 01/15/18 15:59 ABG pO2 79 mmHg (85-104) L 01/15/18 15:59 ABG O2 Saturation 96 % (95-98) 01/15/18 15:59 PT/INR, D-dimer PT 17.8 Seconds (9.4-12.1) H 01/15/18 09:11 - Attending Attestation Sepsis secondary to MRSA bacteremia Continue vancomycin Now would like to be scoped by GI which he refused initially I examined this patient and my medical decision-making was reviewed with the Resident Physician. I agree with the documented findings, disposition and treatment plan as described except to the extent set forth below.
[2018-01-20] MEDS ORDERED: Lidocaine -MPF 1% 5 ML AMPUL INFILT ONE (14:10)
[2018-01-20] MEDS: Carbidopa/Levodopa 25/100 TABLET PO SCH (21:50)
[2018-01-21] MEDS: Ipratropium/Albuterol Neb 3 ML IH SCH ×6 (00:30→20:37)
[2018-01-21 05:51] LABS: Basophils % 0.3 %; Eosinophils # 0.4 K/mcL (0.0-0.6); Eosinophils % 2.4 %; Hematocrit 34.5 % (37.5-50.1); Hemoglobin 10.4 g/dL (12.9-16.9); Immature Granulocytes % 1.1 % (0-4); Lymphocytes % 12.9 %; Mean Corpuscular HGB Conc 30.1 g/dL (31.6-35.5); Mean Corpuscular Hemoglobin 28.2 pg (28.0-33.3); Mean Corpuscular Volume 93.5 fL (83.0-100.0); Mean Platelet Volume 9.9 fL (9.4-12.4); Monocytes # 1.2 K/mcL (0.0-1.3); Monocytes % 7.8 %; Neutrophils # 11.5 K/mcL (1.6-8.9); Platelet Count 328 K/mcL (140-400); Red Blood Count 3.69 M/mcL (4.19-5.50); Red Cell Distribution Width 13.7 % (11.5-14.5); Segmented Neutrophils % 75.5 %
[2018-01-21 06:14] LABS: BUN/Creatinine Ratio 24 (6-26); Blood Urea Nitrogen 22 mg/dL (8-23); Calcium 8.7 mg/dL (8.6-10.3); Carbon Dioxide 39 mEq/L (23-29); Chloride 94 mEq/L (98-107); Glucose 186 mg/dL (70-105); Osmolality,Calculated 296 (280-300); Potassium 3.6 mEq/L (3.5-5.1); Sodium 139 mEq/L (136-145); eGFR For African Americans > 60 (> 60); eGFR For Non-African Americans > 60 (> 60)
--- NOTE | 2018-01-21 08:21 | Infectious Disease Progress No ---
Date of Encounter: 01/21/18 Time of Encounter: 08:05 - Assessment and Plan (1) Sepsis Current Visit: Yes Status: Resolved Present upon admission Now resolved with 1 SIRS criteria present - Leukocytosis MRSA bacteremia and MRSA UTI/Enterococcus UTI Patient has been receiving steroids, possibly contributory to WBC ID will be unavailable tomorrow, please call Dr. Swanson if there are any questions Qualifiers: Sepsis type: sepsis due to unspecified organism Qualified Code(s): A41.9 - Sepsis, unspecified organism (2) Bacteremia Current Visit: Yes Status: Acute MRSA Bacteremia Complicated due to presence of bilateral prosthetic joints Source currently unclear Suspect skin source that passed through the urine caused MRSA in urine, though can't rule out UTI as source Left lower extremity warmth and erythema suggestive of cellulitis or recent cellulitis No stigmata of IE appreciated Blood cultures on 01/15: 2/ positive for MRSA Blood cultures on 01/16: 2/ negative preliminarily TTE performed on 01/16: EF 60-65% with mild diastolic dysfunction, no vegetation seen One major and one minor criteria present PICC line in place in right arm Recommend MERLINE for further visualization, per guidelines Continue vancomycin for at least 4 weeks for complicated bacteremia Will hold on rifampin given patient is also on Xarelto, the current risk of thrombus is greater than the need for rifampin He will require weekly labs: BCB, BMP, Vanc trough, ESR/CRP Follow up with ID 2 weeks post discharge (3) UTI (urinary tract infection) Current Visit: No Status: Ruled-out Catheter associated UTI Urine culture positive for MRSA and enterococcus Both organisms show susceptibility to vancomycin Patient has received 3 days of cefepime Patient has received one day ceftriaxone Currently on vancomycin day 4 Qualifiers: Urinary tract infection type: catheter-associated UTI Indwelling urinary catheter type: indwelling urethral catheter Encounter type: initial encounter Qualified Code(s): T83.511A - Infection and inflammatory reaction due to indwelling urethral catheter, initial encounter; N39.0 - Urinary tract infection , site not specified; N39.0 - Urinary tract infection, site not specified (4) Knee joint replacement status Current Visit: Yes Status: Acute Presence of bilateral knee replacements complicates MRSA bacteremia No erythema, warmth, or tenderness present in bilateral knees Will not give rifampin as patient is also on Xarelto Qualifiers: Laterality: bilateral Qualified Code(s): Z96.653 - Presence of artificial knee joint, bilateral (5) Venous stasis Current Visit: Yes Status: Acute Patient has venous stasis with chronic skin changes present on bilateral lower extremities Some evidence of scabs on lower extremities could be a nidus of MRSA entrance (6) Chronic indwelling Adame catheter Current Visit: Yes Status: Acute Patient has history of UTIs Presented with MRSA and enterococcus UTI Plan as above (7) Metastatic disease Current Visit: Yes Status: Acute Findings on CT examination suspicious for metastatic disease stemming from the esophagus Consider GI consult for further evaluation - Subjective Interval history: Patient states he is doing well this morning. He denies having fevers, chills, nausea, abdominal pain, diarrhea, constipation, dyspnea or chest pain. She reports having continued soreness in his right hip that is chronic for him. He also reports feeling like his swelling has improved in his lower extremities. Patient has been afebrile, has had stable vitals, but patient WBC has continued to elevated today (15.2). Infect Dis PN-Objective Data - Labs CBC & Chem 7: 01/21/18 05:00 01/21/18 05:00 Labs: Laboratory Results - last 24 hr 01/20/18 01/20/18 01/21/18 11:26 19:57 05:00 WBC 15.2 H RBC 3.69 L Hgb 10.4 L Hct 34.5 L MCV 93.5 MCH 28.2 MCHC 30.1 L RDW 13.7 Plt Count 328 MPV 9.9 Immature Gran % 1.1 Seg Neutrophils % 75.5 Lymphocytes % 12.9 Monocytes % 7.8 Eosinophils % 2.4 Basophils % 0.3 Neutrophils # 11.5 H Lymphocytes # 2.0 Monocytes # 1.2 Eosinophils # 0.4 Basophils # 0.0 Sodium Potassium Chloride Carbon Dioxide BUN Creatinine Est GFR ( Amer) Est GFR (Non-Af Amer) BUN/Creatinine Ratio Glucose POC Glucose 270 H 226 H Calculated Osmolality Calcium 01/21/18 01/21/18 05:00 08:02 WBC RBC Hgb Hct MCV MCH MCHC RDW Plt Count MPV Immature Gran % Seg Neutrophils % Lymphocytes % Monocytes % Eosinophils % Basophils % Neutrophils # Lymphocytes # Monocytes # Eosinophils # Basophils # Sodium 139 Potassium 3.6 Chloride 94 L Carbon Dioxide 39 H BUN 22 Creatinine 0.92 Est GFR ( Amer) > 60 Est GFR (Non-Af Amer) > 60 BUN/Creatinine Ratio 24 Glucose 186 H POC Glucose 158 H Calculated Osmolality 296 Calcium 8.7 Cultures: Cultures 01/16/18 06:53 Blood Culture - Preliminary Peripheral Venipuncture No growth. 01/16/18 06:53 Blood Culture - Preliminary Peripheral Venipuncture No growth. Exam - Constitutional Vitals: Temp Pulse Resp BP Pulse Ox 98.2 F 81 16 133/68 98 01/21/18 07:50 01/21/18 07:50 01/21/18 08:01 01/21/18 07:50 01/21/18 08:01 - Additional findings Additional findings: General: Cooperative, pleasant, no acute distress, alert and oriented 3, answers questions appropriately HEENT: Normocephalic, atraumatic, neck supple, trachea midline, Conjunctiva pink , sclera anicteric, oral mucosa moist, no orophargeal erythema or exudates, no conjunctival hemorrhages noted, anterior cervical LAD appreciated Respiratory: No accessory muscle usage, clear to auscultation bilaterally, no wheezes/rhonchi/rales appreciated Cardiovascular: Regular rate and rhythm, S1 and S2 present, no murmurs/rubs/ gallops/clicks appreciated GI/abdominal: Nondistended, nontender, soft, normal bowel sounds, no peritoneal signs Extremities: No calf tenderness, chronic darkening of skin from venous stasis in bilateral lower extremities, mild pedal edema appreciated on patient right, 1 + pedal edema on patient left, increased diameter of left lower extremity ( chronic), left lower extremity warmth is improved today, lower extremity pulses palpable and symmetrical, no stigmata of endocarditis, no tenderness elicited in any joints aside from right hip (chronic), no swelling, erythema, or warmth noted in any joints or in spine, asumetric LE warmth notes with R LE warmth and possibly more erythema Neurological: Alert and oriented 3, no facial droop, no focal deficits Consult Discharge Plan - Plan Referrals: Bulmaro Negro MD [Primary Care Provider] - 01/25/18 1:30 pm - Attending Attestation I examined this patient and my medical decision-making was reviewed with the Resident Physician. I agree with the documented findings, disposition and treatment plan as described except to the extent set forth below.
--- NOTE | 2018-01-21 08:31 | Internal Med Progress Note ---
<Aubrey Elam - Last Filed: 01/21/18 08:29> Date of Encounter: 01/21/18 Time of Encounter: 08:29 - Assessment and plan (1) Sepsis Current Visit: Yes Status: Resolved Assessment and plan: Patient meets sepsis on admission with tachycardia, fever, and UTI. Sepsis most likely secondary to MRSA bacteremia. Patient afebrile and in no acute distress. Blood cultures positive for MRSA x 2 on 01/15/18. Urine culture positive for MRSA and Enterococcus. WBC 15.2 today. Repeat blood cx neg thus far. Echocardiogram no overt vegetation. 1. Continue IV Vancomycin Day 7. 2. Continue to monitor the patient closely. Qualifiers: Sepsis type: sepsis due to unspecified organism Qualified Code(s): A41.9 - Sepsis, unspecified organism (2) MRSA bacteremia Current Visit: Yes Status: Resolved Assessment and plan: Patient afebrile and in no acute distress. Blood cultures positive for MRSA x 2 on 01/15/18. Urine culture positive for MRSA and Enterococcus. WBC increase to 15.2 today. Currently on steroids. Repeat blood cx neg thus far. Echocardiogram no overt vegetation. PICC line placed in the right arm on . 1. Continue IV Vancomycin Day 7. 2. Per ID: Bacteremia complicated due to presence of bilateral prosthetic joints with source currently unclear. Lower extremity cellulitis vs. UTI. Recommend obtaining MERLINE for further visualization. Continue vancomycin for at least 4 weeks for complicated bacteremia. Will hold on rifampin given patient is also on Xarelto, the current risk of thrombus is greater than the need for rifampin. He will require weekly labs: BCB, BMP, Vanc trough, ESR/CRP Follow up with ID 2 weeks post discharge (3) COPD with acute exacerbation Current Visit: Yes Status: Resolved Assessment and plan: Seems to be improving. Continue IV abx and steroids. Supplement with oxygen as needed. (4) Acute respiratory failure with hypoxia Current Visit: Yes Status: Resolved Assessment and plan: Acute respiratory failure with hypoxia most likely secondary to acute exacerbation of COPD. Pt with oxygen saturation of 87% on room air on admit. Current oxygen saturation of 98% on 4L NC. Continue to monitor. (5) Cellulitis of both lower extremities Current Visit: Yes Status: Acute Assessment and plan: Appear to be slowly improving. Has significant venous stasis bilaterally. Continue IV abx. (6) Hypertension Current Visit: No Status: Chronic Assessment and plan: Controlled at this time. Continue current medications. Qualifiers: Hypertension type: essential hypertension Qualified Code(s): I10 - Essential (primary) hypertension (7) Diabetes mellitus Current Visit: No Status: Chronic Assessment and plan: Currently on accuchecks and coverage. 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 Qualifiers: Atrial fibrillation type: chronic Qualified Code(s): I48.2 - Chronic atrial fibrillation (9) UTI (urinary tract infection) Current Visit: Yes Status: Acute Assessment and plan: Pt with chronic tomlinson and UTI on admission. Urine culture with MRSA. New tomlinson catheter changed on 01/18/[address] Goldberg. On IV abx at this time. Qualifiers: Urinary tract infection type: catheter-associated UTI Indwelling urinary catheter type: indwelling urethral catheter Encounter type: subsequent encounter Qualified Code(s): T83.511D - Infection and inflammatory reaction due to indwelling urethral catheter, subsequent encounter; N39.0 - Urinary tract infection, site not specified; N39.0 - Urinary tract infection, site not specified (10) Abnormal CT of the abdomen Current Visit: Yes Status: Acute Assessment and plan: CT abdomen on 01/15/2018 report reads suspected wall thickening near the gastroesophageal junction. While this appearance could be seen with esophagitis (especially given the presence of a small sliding hiatal hernia), there are new abnormal bilateral paraesophageal and retrocrural lymph nodes suspicious for metastatic disease. Recommend gastroenterology evaluation with consideration for endoscopy. GI is consulted. Will perform EGD to further evaluate. (11) Right hip pain Current Visit: Yes Status: Chronic Assessment and plan: Due to osteoarthritis. Monitoring closely in light of bacteremia. (12) Acute diastolic (congestive) heart failure Current Visit: No Status: Resolved Assessment and plan: Appears to be slowly improving.Continue PO Lasix. Echocardiogram EF of 60-65%. - Time Spent With Patient less than 15 minutes - Subjective Interval history: The patient was seen and evaluated at bedside this morning. Patient was afebrile and appears in no acute distress. Patient states that he feels good today and has no complaints at this time. Patient understands that he is expecting to get scoped today by GI. Patient denies any fever, headaches, vision changes, chest pain, shortness of breath, difficulty breathing, abdominal pain, diarrhea, nausea and vomiting, dysuria, numbness and tingling, and any weaknesses. Patient has no other concerns at this time. - Constitutional Vitals: Temp Pulse Resp BP Pulse Ox 98.2 F 81 16 133/68 98 01/21/18 07:50 01/21/18 07:50 01/21/18 08:01 01/21/18 07:50 01/21/18 08:01 General appearance: Present: A&O X 3, obese, answers questions appropriately - Head Head exam: Present: atraumatic, normocephalic - Eye Eye exam: Present: PERRL, conjuntiva pink, sclera anicteric Pupils: Present: PERRL - ENT ENT exam: Present: mucous membranes dry - Neck Neck exam general surgery: Present: supple, trachea midline. Absent: lymphadenopathy - Respiratory Respiratory exam: Present: CTAB. Absent: accessory muscle use, rales, rhonchi, wheezes - Cardiovascular Cardiovascular exam: Present: RRR, +S1, +S2. Absent: diastolic murmur, gallop, rubs, systolic murmur - GI/Abdominal GI/Abdominal exam: Present: normal bowel sounds, soft, no peritoneal signs. Absent: distended, firm, guarding, tenderness Additional comments: Obese abdomen - exam: Absent: scrotal swelling, testicular tenderness, urethral discharge Additional comments: Tomlinson catheters in place. Urine in the bag is yellow and has no blood. - Extremities Exam Extremities exam: Present: pedal edema, warm, radial pulses palpable and symmetrical. Absent: calf tenderness, cyanotic, tenderness Additional comments: Cellulitis present on bilateral lower extremities with chronic venous stasis. Appears to be improving. Distal pulses +2/4 bilaterally. Trace pitting present on bilateral LE. Bilateral lower extremities are mildly swollen. - Neurological Exam Neurological exam: Present: CN II-XII intact, oriented X3, no focal deficits. Absent: pronater drift, facial droop, speech deficit - Skin Skin exam: Present: dry, intact Internal Medicine: Result - Labs CBC & Chem 7: 01/21/18 05:00 01/21/18 05:00 Labs: Short CBC 01/21/18 Range/Units 05:00 WBC 15.2 H (4.3-11.1) K/mcL Hgb 10.4 L (12.9-16.9) g/dL Hct 34.5 L (37.5-50.1) % Plt Count 328 (140-400) K/mcL Neutrophils # 11.5 H (1.6-8.9) K/mcL BMP 01/21/18 05:00 Sodium 139 Potassium 3.6 Chloride 94 L Carbon Dioxide 39 H BUN 22 Creatinine 0.92 Glucose 186 H Calcium 8.7 - ABG Interpretation ABG results: ABG ABG pH 7.41 pH Units (7.32-7.45) 01/15/18 15:59 ABG pCO2 46 mmHg (35-45) H 01/15/18 15:59 ABG pO2 79 mmHg (85-104) L 01/15/18 15:59 ABG O2 Saturation 96 % (95-98) 01/15/18 15:59 PT/INR, D-dimer PT 17.8 Seconds (9.4-12.1) H 01/15/18 09:11 Consult Discharge Plan - Plan Referrals: Bulmaro Negro MD [Primary Care Provider] - 01/25/18 1:30 pm <Everette Adams H - Last Filed: 01/21/18 15:24> Date of Encounter: 01/21/18 - Constitutional Vitals: Temp Pulse Resp BP Pulse Ox 98.7 F 64 16 143/93 95 01/21/18 14:55 01/21/18 14:55 01/21/18 14:55 01/21/18 14:55 01/21/18 14:55 Internal Medicine: Result - Labs CBC & Chem 7: 01/21/18 05:00 01/21/18 05:00 Labs: Short CBC 01/21/18 Range/Units 05:00 WBC 15.2 H (4.3-11.1) K/mcL Hgb 10.4 L (12.9-16.9) g/dL Hct 34.5 L (37.5-50.1) % Plt Count 328 (140-400) K/mcL Neutrophils # 11.5 H (1.6-8.9) K/mcL BMP 01/21/18 05:00 Sodium 139 Potassium 3.6 Chloride 94 L Carbon Dioxide 39 H BUN 22 Creatinine 0.92 Glucose 186 H Calcium 8.7 - ABG Interpretation ABG results: ABG ABG pH 7.41 pH Units (7.32-7.45) 01/15/18 15:59 ABG pCO2 46 mmHg (35-45) H 01/15/18 15:59 ABG pO2 79 mmHg (85-104) L 01/15/18 15:59 ABG O2 Saturation 96 % (95-98) 01/15/18 15:59 PT/INR, D-dimer PT 17.8 Seconds (9.4-12.1) H 01/15/18 09:11 - Attending Attestation Sepsis secondary to MRSA bacteremia with MRSA and enterococcus UTI Continue vancomycin EGD today I examined this patient and my medical decision-making was reviewed with the Resident Physician. I agree with the documented findings, disposition and treatment plan as described except to the extent set forth below.
[2018-01-21] MEDS: Insulin LISPRO 300 UNITS/3 ML VIAL SQ SCH ×4 (09:00→21:46)
[2018-01-21] MEDS: Lisinopril 20 MG TABLET PO SCH (09:01)
[2018-01-21] MEDS: Furosemide 40 MG TABLET PO SCH ×2 (09:02→17:02)
[2018-01-21] MEDS: *HR* Rivaroxaban 10 MG TABLET PO SCH (09:02)
[2018-01-21] MEDS: Cholecalciferol (D-3) 1,000 UNIT TABLET PO SCH (09:03)
[2018-01-21] MEDS: predniSONE 10 MG TABLET PO SCH (09:16)
--- NOTE | 2018-01-21 14:32 | Anesthesia Evaluation PreOp ---
Date of Encounter: 01/21/18 Time of Encounter: 14:29 - Past History Planned Operation: EGD Cardiac History: CHF, HTN, Hyperlipidemia, Arrhythmia (Afib) Pulmonary History: COPD RUG SET[employer]ELVET History: Denies Any Significant HX Other Medical History: Diabetes Type II, GERD, Other (Sepsis - MRSA bacteremia, Chronic Venous stasis, Morbid Obesity BMI-45.5) Anesthesia History: No Prior Anesthetic Complications, Past Anesthesia (Appy, hernia, Knee replacement) Alcohol Use: none Drug use: none Medications and Allergies Labetalol HCl 300 mg PO 0700,1200,2100 10/25/16 [History] Pantoprazole Sodium [Protonix] 40 mg PO QAM 10/25/16 [History] Rivaroxaban [Xarelto] 20 mg PO QAM 10/25/16 [History] Carbidopa/Levodopa [Carbidopa-Levodopa 25-100 Tab] 1 tab PO HS 07/09/17 [History ] Cholecalciferol (Vitamin D3) [Vitamin D3] 5,000 unit PO QAM 07/09/17 [History] Furosemide [Lasix] 40 mg PO DAILY 01/15/18 [History] Lisinopril [Zestril] 20 mg PO DAILY 01/15/18 [History] Oxybutynin Chloride [Ditropan Xl] 15 mg PO DAILY 01/15/18 [History] Potassium Chloride 20 mg PO DAILY 01/15/18 [History] 3 Allergy/AdvReac Type Severity Reaction Status Date / Time No Known Allergies Allergy Verified 01/15/18 08:57 - Meds/Allergy Pre-op Review Medications Reviewed: Yes Allergies Reviewed: Yes Beta Blockers on Current Med List: Yes If Beta Blockers taken, Date/Time (Last Dose taken): 12:23 01/21/2018 Anesthesia Results - Labs 01/21/18 05:00 01/21/18 05:00 Echocardiogram Name: Anders Jimenez Date of Study: 01/16/2018 LVEF 60-65%. Mild left ventricular diastolic dysfunction. Normal right ventricular structure and function. No significant valvular dysfunction. No pulmonary hypertension. - Imaging EKG: report reviewed (ST) Anesthesia Exam Vital Signs/O2 Sat, Most Current Temp Pulse Resp BP Pulse Ox 98.7 F 83 14 130/88 97 01/21/18 11:55 01/21/18 11:55 01/21/18 11:55 01/21/18 11:55 01/21/18 11:55 NPO (# of Hours): > 8 hrs Pain Scale: 0 Pain Scale Used: Numeric (1 - 10) - HEENT Pupil (Motor): Pupils equal, EOMI Mallampati: III Teeth: Normal Oral Opening: Greater than 3 - RUG SET[employer] [place] LOC: Oriented RUG [employer] [place] Motor: Normal RUE, Normal LUE, Normal RLE, Normal LLE, Normal Face RUG SET[employer] [place] Sensory: Normal: RUE, LUE, RLE, LLE, Face - Cardiac Rhythm: Irregular Murmur: None JVD: No Carotid Bruit: No - Pulmonary Breath Sounds: bilateral Clear Respiratory Effort: Symmetrical Anesthesia Assess/Plan ASA Score: 4 Modified [place] Scale for Level of Consciousness: Cooperative, oriented, and tranquil Anesthetic Plan: MAC Autologous Blood: Yes Monitoring Plan: Standard Monitors Recovery Plan: Other
[2018-01-21] MEDS ORDERED: *HR* Propofol 200 MG/20 ML VIAL IVP ONE (15:56)
--- NOTE | 2018-01-21 16:32 | Anesthesia Evaluation Post Op ---
Date of Encounter: 01/21/18 Time of Encounter: 16:30 - Vital Signs Vital Signs: 3 Vital Signs Time 1630 BP 149/88 Pulse 80 Resp 20 O2 Sat 92 - Lungs Lungs: Clear Ascult./Percussion - Airway Airway: Non-obstructed - Cardiovascular Regular Rate - Mental Status Mental Status: Alert & Oriented, Answers Appropriately - Nausea Vomiting Nausea Vomiting: Not Present - Hydration Hydration: NPO - Discharge PostOp Status: Transfer Patient to floor
[2018-01-21] MEDS: Carbidopa/Levodopa 25/100 TABLET PO SCH (22:09)
[2018-01-22] MEDS: Ipratropium/Albuterol Neb 3 ML IH SCH ×7 (00:02→23:05)
[2018-01-22 05:24] LABS: Basophils # 0.1 K/mcL (0.0-0.2); Basophils % 0.3 %; Eosinophils # 0.3 K/mcL (0.0-0.6); Eosinophils % 1.7 %; Hematocrit 38.9 % (37.5-50.1); Hemoglobin 11.9 g/dL (12.9-16.9); Immature Granulocytes % 0.9 % (0-4); Lymphocytes # 1.9 K/mcL (0.6-4.6); Lymphocytes % 11.6 %; Mean Corpuscular HGB Conc 30.6 g/dL (31.6-35.5); Mean Corpuscular Hemoglobin 28.6 pg (28.0-33.3); Mean Corpuscular Volume 93.5 fL (83.0-100.0); Monocytes # 1.1 K/mcL (0.0-1.3); Monocytes % 6.6 %; Neutrophils # 13.2 K/mcL (1.6-8.9); Platelet Count 382 K/mcL (140-400); Red Blood Count 4.16 M/mcL (4.19-5.50); Red Cell Distribution Width 13.6 % (11.5-14.5); Segmented Neutrophils % 78.9 %
[2018-01-22 05:43] LABS: BUN/Creatinine Ratio 20 (6-26); Blood Urea Nitrogen 20 mg/dL (8-23); Calcium 8.8 mg/dL (8.6-10.3); Carbon Dioxide 38 mEq/L (23-29); Chloride 93 mEq/L (98-107); Glucose 193 mg/dL (70-105); Osmolality,Calculated 296 (280-300); Sodium 139 mEq/L (136-145); eGFR For African Americans > 60 (> 60); eGFR For Non-African Americans > 60 (> 60)
[2018-01-22] MEDS: Furosemide 40 MG TABLET PO SCH ×2 (07:57→15:58)
[2018-01-22] MEDS: Lisinopril 20 MG TABLET PO SCH (07:57)
[2018-01-22] MEDS: *HR* Rivaroxaban 10 MG TABLET PO SCH (07:57)
[2018-01-22] MEDS: Cholecalciferol (D-3) 1,000 UNIT TABLET PO SCH (07:58)
[2018-01-22] MEDS: predniSONE 10 MG TABLET PO SCH (07:58)
[2018-01-22] MEDS: Insulin LISPRO 300 UNITS/3 ML VIAL SQ SCH ×4 (07:59→22:23)
--- NOTE | 2018-01-22 09:17 | Discharge Summary ---
<Aubrey Elam - Last Filed: 01/22/18 09:52> Orders not resulted at time of discharge: Pending orders 01/21/18 16:27 Surgical Pathology [PTH] Routine Date of Encounter: 01/22/18 Time of Encounter: 08:30 - Discharge Diagnosis (1) Sepsis Priority: Primary Status: Resolved Comments: Patient is afebrile and appears in no acute distress. Vitals are within normal limits. Patient appears to be clinically improving. Qualifiers: Sepsis type: sepsis due to unspecified organism Qualified Code(s): A41.9 - Sepsis, unspecified organism (2) MRSA bacteremia Priority: Primary Status: Resolved Comments: Blood cultures positive for MRSA x 2 on 01/15/18. Urine culture positive for MRSA and Enterococcus. WBC increase to 16.7 today. Clinically improving and patient is currently on steroids. Repeat blood cx neg thus far. Echocardiogram no overt vegetation. PICC line placed in the right arm on 01/20/18. 1. Continue IV Vancomycin Day 8. 2. Per ID: Bacteremia complicated due to presence of bilateral prosthetic joints with source currently unclear. Lower extremity cellulitis vs. UTI. Recommend obtaining MERLINE for further visualization. Continue vancomycin for at least 4 weeks for complicated bacteremia. Will hold on rifampin given patient is also on Xarelto, the current risk of thrombus is greater than the need for rifampin. He will require weekly labs: BCB, BMP, Vanc trough, ESR/CRP Follow up with ID 2 weeks post discharge (3) COPD with acute exacerbation Priority: Secondary Status: Resolved (4) Acute respiratory failure with hypoxia Priority: Secondary Status: Resolved Comments: Acute respiratory failure with hypoxia most likely secondary to acute exacerbation of COPD. Pt with oxygen saturation of 87% on room air on admit. Current oxygen saturation of 98% on 4L NC. Was informed by Katja Kearney with case management that PT/OT reported that the patient required oxygen during walk test. Patient oxygen dropped down to 87% on room air and was recovered to 94% with 5L. I request that the walk test be repeated and attempt to have patient recover on 3-4L. Patient will require supplemental oxygen because of his shortness of breath due to his COPD. (5) Cellulitis of both lower extremities Priority: Secondary Status: Acute (6) Hypertension Priority: Secondary Status: Chronic Qualifiers: Hypertension type: essential hypertension Qualified Code(s): I10 - Essential (primary) hypertension (7) Diabetes mellitus Priority: Secondary Status: Chronic Qualifiers: Diabetes mellitus type: type 2 Diabetes mellitus complication status: with hyperglycemia Diabetes mellitus nitroglycerin neutralizer insulin use: without prison use Qualified Code(s): E11.65 - Type 2 diabetes mellitus with hyperglycemia (8) A-fib Priority: Secondary Status: Chronic Qualifiers: Atrial fibrillation type: chronic Qualified Code(s): I48.2 - Chronic atrial fibrillation (9) UTI (urinary tract infection) Priority: Secondary Status: Acute Qualifiers: Urinary tract infection type: catheter-associated UTI Indwelling urinary catheter type: indwelling urethral catheter Encounter type: subsequent encounter Qualified Code(s): T83.511D - Infection and inflammatory reaction due to indwelling urethral catheter, subsequent encounter; N39.0 - Urinary tract infection, site not specified; N39.0 - Urinary tract infection, site not specified (10) Abnormal CT of the abdomen Priority: Secondary Status: Acute (11) Right hip pain Priority: Secondary Status: Chronic (12) Acute diastolic (congestive) heart failure Priority: Secondary Status: Resolved Hospital course: Mr. Jimenez is a 72 year old male admitted on 01/15/2018 for sepsis secondary to MRSA bacteremia. Patient has a past medical history of paroxysmal atrial fibrillation, Diastolic CHF, diabetes, GERD, hypertension, chronic venous stasis and chronic indwelling tomlinson cathter for urinary retention , and recurrent UTI. The patient was seen and evaluated at bedside this morning. Patient is awake, alert, afebrile, and appears in no acute distress. He has no concerns or complaints. He denies any fever, chest pain, shortness of breath, difficulty breathing, abdominal pain, dysuria, hematuria, penile discharge, numbness or tingling, or any weaknesses. He presented to the ED complaining of fever, T max 102 at home, and lower abdominal discomfort. He also complained of worsening swelling and erythema in both legs. UA was positive for a urinary tract infection. Urine culture was positive for MRSA and enterococcus faecalis. Initial blood cultures were positive for MRSA times two. Repeat blood cultures preliminary read are negative. Chest x-ray showed no acute cardiopulmonary processes. Echocardiogram showed LVEF 60-65% no overt vegetations. CT of abdomen and pelvis reports reads findings suggestive of cystitis, most likely centered in a diverticulum arising from the left urinary bladder wall. Underlying malignancy is not entirely excluded. Consider urology evaluation. Suspected wall thickening near the gastroesophageal junction. While this appearance could be seen with esophagitis (especially given the presence of a small sliding hiatal hernia), there are new abnormal bilateral paraesophageal and retrocrural lymph nodes suspicious for metastatic disease. Recommend gastroenterology evaluation with consideration for endoscopy. Infectious disease, urology, and G.I. were consulted. Dr. Goldberg placed a new Tomlinson catheter patient tolerated well. GI performed an EGD and report suggests findings of Brad's esophagus. Patient has been on IV vancomycin for a total of 7 days. Infectious disease recommend that the patient continue IV vancomycin for minimum of 4 weeks to treat complicated bacteremia due to his bilateral prosthetic knees. Infectious disease recommend a MERLINE as an outpatient follow-up with ID within 2 weeks after discharge. Patient refused to be discharge to [facility]. The patient prefer to receive his IV antibiotics from an infusion company with assistance from home healthcare. Also, patient required oxygen during the walk test per PT/OT. Patient stated that he use to require oxygen at home but currently does not have oxygen. Patient will require supplemental oxygen for his shortness of breath due to his COPD. Patient will be discharge home and will continue IV vancomycin for another 3 weeks for a total of 4 weeks of treatment. A script was written for IV vancomycin and placed in his chart. Case management is aware. The patient was recommended to follow up with his primary care physician within one week and to follow up with his urologist and infectious disease within 2 weeks. The patient verbalizes understandings and agrees with the treatment plan. Patient has no other concerns at this time. - Time Spent with Patient Total time spent providing and/or coordinating discharge services: Greater than 30 minutes - Discharge Medications Prescriptions: predniSONE [PredniSONE] 10 mg PO DAILY #18 tablet Home Medications: Labetalol HCl 300 mg PO 0700,1200,2100 10/25/16 [History] Pantoprazole Sodium [Protonix] 40 mg PO QAM 10/25/16 [History] Rivaroxaban [Xarelto] 20 mg PO QAM 10/25/16 [History] Carbidopa/Levodopa [Carbidopa-Levodopa 25-100 Tab] 1 tab PO HS 07/09/17 [History ] Cholecalciferol (Vitamin D3) [Vitamin D3] 5,000 unit PO QAM 07/09/17 [History] Furosemide [Lasix] 40 mg PO DAILY 01/15/18 [History] Lisinopril [Zestril] 20 mg PO DAILY 01/15/18 [History] Oxybutynin Chloride [Ditropan Xl] 15 mg PO DAILY 01/15/18 [History] Potassium Chloride 20 mg PO DAILY 01/15/18 [History] predniSONE [PredniSONE] 10 mg PO DAILY #18 tablet 01/22/18 [Rx] Allergies/Adverse Reactions: 3 Allergy/AdvReac Type Severity Reaction Status Date / Time No Known Allergies Allergy Verified 01/15/18 08:57 Date of admission: 01/15/18 11:45 Primary care physician: Bulmaro Negro MD Consults: 01/15/18 13:06 Consult to Pool Technician [CONS] Routine Reason for SW Consult: weakness 01/16/18 10:03 PT [Consult to Physical Therapy] [CONS] Routine Comment: Evaluate, develop and implement POC Reason for Consult: Pt requests evaluation for mobility issues associated with R hip pain. 01/17/18 15:46 Consult to Urology [CONS] Routine Consulting Provider: [facility] [place] Reason for Consult: Tomlinson catheter Time Notified: 15:45 Call Completed: Yes 01/18/18 07:55 Consult to Infectious Diseases [CONS] Routine Consulting Provider: Infectious [facility] [place] Reason for Consult: MRSA UTI/bacteremia Time Notified: 08:45 Call Completed: Yes 01/18/18 15:03 Consult to Gastroenterology [CONS] Routine Consulting Provider: [facility] [place] Reason for Consult: abnormal CT at EG junction, likely need EGD. Dr. Wright notified. Time Notified: 15:05 Call Completed: Yes 01/19/18 14:45 Consult to PICC team [Consult to Invasive Line Access Team] [CONS] Routine Reason for Consult: Will need PICC for nitroglycerin neutralizer access Line Type: PICC Call Completed: Yes 01/20/18 14:10 Consult to Invasive Line Access Team [CONS] Routine Reason for Consult: Picc Line Insertion Line Type: PICC Discharging clinician: Aubrey Elam Anticipated date of discharge: 01/22/18 - Constitutional Vitals: Temp Pulse Resp BP Pulse Ox 97.8 F 74 15 156/93 95 01/22/18 07:23 01/22/18 07:23 01/22/18 07:23 01/22/18 07:23 01/22/18 07:23 General appearance: Present: A&O X 3, obese, answers questions appropriately - Head Head exam: Present: atraumatic, normocephalic - Eye Eye exam: Present: PERRL, conjuntiva pink, sclera anicteric Pupils: Present: PERRL - ENT ENT exam: Present: mucous membranes dry - Neck Neck exam general surgery: Present: supple, trachea midline. Absent: lymphadenopathy - Respiratory Respiratory exam: Present: CTAB. Absent: accessory muscle use, rales, rhonchi, wheezes - Cardiovascular Cardiovascular exam: Present: RRR, +S1, +S2. Absent: diastolic murmur, gallop, rubs, systolic murmur - GI/Abdominal GI/Abdominal exam: Present: normal bowel sounds, soft, no peritoneal signs. Absent: distended, tenderness - exam: Absent: scrotal swelling, urethral discharge Additional comments: Tomlinson catheter present. Urine bag has yellow urine with no blood. - Extremities Exam Extremities exam: Present: pedal edema, warm, radial pulses palpable and symmetrical. Absent: calf tenderness, cyanotic, tenderness Additional comments: Cellulitis present on bilateral lower extremities with chronic venous stasis. Appears to be improving. Distal pulses +2/4 bilaterally. Trace pitting present on bilateral LE. Bilateral lower extremities are mildly swollen. - Neurological Exam Neurological exam: Present: CN II-XII intact, oriented X3, no focal deficits. Absent: pronater drift, facial droop, speech deficit - Skin Skin exam: Present: dry, intact - Patient Status Disposition: Home Health Service Condition: Good Functional capacity at discharge: uses cane/walker Overall status at discharge: patient is progressing back to baseline - Ambulatory Orders Ambulatory Orders: PET CT skull to thigh DX/initi [PE] Time Frame: 01/27/18, Facility: [facility], Location: Radiology - Discharge Instructions Instructions: Cellulitis (DC), Tomlinson Catheter Placement and Care (DC) Follow Up With: Bulmaro Negro MD [Primary Care Provider] - 01/25/18 1:30 pm [facility] [place] [Provider Group] Jovani Goldberg MD [Partnered Physician] - Additional Instructions: 1. Please follow up with your primary care physician within one week. 2. Please continue all of your home medications as prescribed. 3. Please take your steroids and antibiotics as prescribed. Continue your IV vancomycin every 12 hours for a total of 3 more weeks. Taper your steroids as follows: Take 30mg for three days follow by 20mg for three days follow by 10mg for three days. 4. Please follow up with infectious disease 2 weeks after discharge. Please follow up with your urologist as well within 2 to 3 weeks. 5. Please wear your home oxygen at all times. 6. Please return to the hospital for new or worsening symptoms. - Diet and Activity Activity: as per physical therapy, increase activity as tolerated, wear oxygen at all times Diet: advance to your usual diet <Everette Adams - Last Filed: 01/25/18 08:27> Orders not resulted at time of discharge: Pending orders 01/21/18 16:27 Surgical Pathology [PTH] Routine 01/25/18 17:00 Vancomycin,Trough Timed Date of Encounter: 01/25/18 - Discharge Diagnosis (1) Sepsis Status: Resolved Qualifiers: Sepsis type: methicillin resistant Staphylococcus aureus Qualified Code(s) : A41.02 - Sepsis due to Methicillin resistant Staphylococcus aureus (2) Esophageal mass Status: Acute Hospital course: Mr. Jimenez is a 72 year old male - Time Spent with Patient Total time spent providing and/or coordinating discharge services: Date of admission: 01/15/18 11:45 Primary care physician: Bulmaro Negro MD Consults: 01/15/18 13:06 Consult to Pool Technician [CONS] Routine Reason for SW Consult: weakness 01/16/18 10:03 PT [Consult to Physical Therapy] [CONS] Routine Comment: Evaluate, develop and implement POC Reason for Consult: Pt requests evaluation for mobility issues associated with R hip pain. 01/17/18 15:46 Consult to Urology [CONS] Routine Consulting Provider: [facility] Reason for Consult: Tomlinson catheter Time Notified: 15:45 Call Completed: Yes 01/18/18 07:55 Consult to Infectious Diseases [CONS] Routine Consulting Provider: Infectious [facility] Reason for Consult: MRSA UTI/bacteremia Time Notified: 08:45 Call Completed: Yes 01/18/18 15:03 Consult to Gastroenterology [CONS] Routine Consulting Provider: [facility]astroenter[facility] Reason for Consult: abnormal CT at EG junction, likely need EGD. Dr. Wright notified. 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 Oncology was consulted, needs to follow-up as outpatient Vancomycin day 11 Need to continue IV vancomycin for 4 weeks startin on 01/16/18 send on : Omeprazole 40 mg BID time spent : 40 min I examined this patient and my medical decision-making was reviewed with the Resident Physician. I agree with the documented findings, disposition and treatment plan as described except to the extent set forth below.
--- NOTE | 2018-01-22 11:01 | Internal Med Progress Note ---
<Aubrey Elam - Last Filed: 01/22/18 11:12> Date of Encounter: 01/22/18 Time of Encounter: 08:30 - Assessment and plan (1) Sepsis Current Visit: Yes Status: Resolved Assessment and plan: Patient meets sepsis on admission with tachycardia, fever, and UTI. Sepsis most likely secondary to MRSA bacteremia. Patient afebrile and in no acute distress. Blood cultures positive for MRSA x 2 on 01/15/18. Urine culture positive for MRSA and Enterococcus. WBC 15.2 today. Repeat blood cx neg thus far. Echocardiogram no overt vegetation. 1. Continue IV Vancomycin Day 8. 2. Continue to monitor the patient closely. Qualifiers: Sepsis type: sepsis due to unspecified organism Qualified Code(s): A41.9 - Sepsis, unspecified organism (2) MRSA bacteremia Current Visit: Yes Status: Resolved Assessment and plan: Patient afebrile and in no acute distress. Blood cultures positive for MRSA x 2 on 01/15/18. Urine culture positive for MRSA and Enterococcus. WBC increase to 16.7 today. Currently on steroids. Repeat blood cx neg thus far. Echocardiogram no overt vegetation. PICC line placed in the right arm on . 1. Continue IV Vancomycin Day 8. 2. Per ID: Bacteremia complicated due to presence of bilateral prosthetic joints with source currently unclear. Lower extremity cellulitis vs. UTI. Recommend obtaining MERLINE for further visualization. Continue vancomycin for at least 4 weeks for complicated bacteremia. Will hold on rifampin given patient is also on Xarelto, the current risk of thrombus is greater than the need for rifampin. He will require weekly labs: BCB, BMP, Vanc trough, ESR/CRP Follow up with ID 2 weeks post discharge (3) COPD with acute exacerbation Current Visit: Yes Status: Resolved Assessment and plan: Seems to be improving. Continue IV abx and steroids. Supplement with oxygen as needed. Was informed by Katja Kearney with case management that PT/OT reported that the patient required oxygen during walk test. Patient oxygen dropped down to 87% on room air and was recovered to 94% with 5L. I request that the walk test be repeated and attempt to have patient recover on 3-4L. (4) Acute respiratory failure with hypoxia Current Visit: Yes Status: Resolved Assessment and plan: Acute respiratory failure with hypoxia most likely secondary to acute exacerbation of COPD. Pt with oxygen saturation of 87% on room air on admit. Current oxygen saturation of 98% on 4L NC. Continue to monitor. (5) Cellulitis of both lower extremities Current Visit: Yes Status: Acute Assessment and plan: Appear to be slowly improving. Has significant venous stasis bilaterally. Continue IV abx. (6) Hypertension Current Visit: No Status: Chronic Assessment and plan: Controlled at this time. Continue current medications. Qualifiers: Hypertension type: essential hypertension Qualified Code(s): I10 - Essential (primary) hypertension (7) Diabetes mellitus Current Visit: No Status: Chronic Assessment and plan: Currently on accuchecks and coverage. Qualifiers: Diabetes mellitus type: type 2 Diabetes mellitus complication status: with hyperglycemia Diabetes mellitus longterm insulin use: without longterm use Qualified Code(s): E11.65 - Type 2 diabetes mellitus with hyperglycemia (8) A-fib Current Visit: No Status: Chronic Assessment and plan: Rate controlled.Remains on Xarelto. Qualifiers: Atrial fibrillation type: chronic Qualified Code(s): I48.2 - Chronic atrial fibrillation (9) UTI (urinary tract infection) Current Visit: Yes Status: Acute Assessment and plan: Pt with chronic tomlinson and UTI on admission. Urine culture with MRSA. New tomlinson catheter changed on 01/18/[address] Goldberg. On IV abx at this time. Qualifiers: Urinary tract infection type: catheter-associated UTI Indwelling urinary catheter type: indwelling urethral catheter Encounter type: subsequent encounter Qualified Code(s): T83.511D - Infection and inflammatory reaction due to indwelling urethral catheter, subsequent encounter; N39.0 - Urinary tract infection, site not specified; N39.0 - Urinary tract infection, site not specified (10) Abnormal CT of the abdomen Current Visit: Yes Status: Acute Assessment and plan: CT abdomen on 01/15/2018 report reads suspected wall thickening near the gastroesophageal junction. While this appearance could be seen with esophagitis (especially given the presence of a small sliding hiatal hernia), there are new abnormal bilateral paraesophageal and retrocrural lymph nodes suspicious for metastatic disease. Recommend gastroenterology evaluation with consideration for endoscopy. GI is consulted. EGD performed. Per report, EGD findings included Fong's esophagus. On report, a large, ulcerative mass was found in the lower 3rd of the esophagus. Oncology was consult to. Spoke with the HOT DIMPLING MACHINE OPERATOR who agrees to see the patient later today. Awaiting recommendations from G.Mook and oncology (11) Right hip pain Current Visit: Yes Status: Chronic Assessment and plan: Due to osteoarthritis. Monitoring closely in light of bacteremia. (12) Acute diastolic (congestive) heart failure Current Visit: No Status: Resolved Assessment and plan: Appears to be slowly improving.Continue PO Lasix. Echocardiogram EF of 60-65%. - Subjective Interval history: The patient was seen and evaluated at bedside this morning. Patient was afebrile and appears in no acute distress. Patient states that he feels good today and has no complaints at this time. Patient denies any fever, headaches, vision changes, chest pain, shortness of breath, difficulty breathing, abdominal pain, diarrhea, nausea and vomiting, dysuria, numbness and tingling, and any weaknesses. Patient has no other concerns at this time. 11:00am: and case management worker at [facility]. Ciaio Counter Molder discussed home health, PT/OT, and nursing and treatment plan. stated that a physician contacted her yesterday night informing her that the patient will be seen by an oncologist today due to a mass that they found on a scope. I spoke with Shayna Alva the HOT DIMPLING MACHINE OPERATOR from oncology and she confirms that she was going to see the patient later today. I informed the and the patient that an oncologist will come by later today. Patient and has no other concerns at this time. - Constitutional Vitals: Temp Pulse Resp BP Pulse Ox 97.7 F 88 16 149/96 95 01/22/18 10:36 01/22/18 10:36 01/22/18 10:36 01/22/18 10:36 01/22/18 10:36 General appearance: Present: A&O X 3, obese, answers questions appropriately - Head Head exam: Present: atraumatic, normocephalic - Eye Eye exam: Present: PERRL, conjuntiva pink, sclera anicteric Pupils: Present: PERRL - ENT ENT exam: Present: mucous membranes dry - Neck Neck exam general surgery: Present: supple, trachea midline. Absent: lymphadenopathy - Respiratory Respiratory exam: Present: CTAB. Absent: accessory muscle use, rales, rhonchi, wheezes - Cardiovascular Cardiovascular exam: Present: RRR, +S1, +S2. Absent: diastolic murmur, gallop, rubs, systolic murmur - GI/Abdominal GI/Abdominal exam: Present: normal bowel sounds, soft, no peritoneal signs. Absent: distended, tenderness - exam: Absent: scrotal swelling, testicular tenderness, urethral discharge Additional comments: Tomlinson catheter is in place. Urine is yellow with no blood - Extremities Exam Extremities exam: Present: pedal edema, warm, radial pulses palpable and symmetrical. Absent: calf tenderness, cyanotic Additional comments: Cellulitis present on bilateral lower extremities with chronic venous stasis. Appears to be improving. Distal pulses +2/4 bilaterally. Trace pitting present on bilateral LE. Bilateral lower extremities are mildly swollen. - Neurological Exam Neurological exam: Present: CN II-XII intact, oriented X3, no focal deficits. Absent: pronater drift, facial droop, speech deficit - Skin Skin exam: Present: dry, intact Internal Medicine: Result - Labs CBC & Chem 7: 01/22/18 05:00 01/22/18 05:00 Labs: Short CBC 01/22/18 Range/Units 05:00 WBC 16.7 H (4.3-11.1) K/mcL Hgb 11.9 L D (12.9-16.9) g/dL Hct 38.9 (37.5-50.1) % Plt Count 382 (140-400) K/mcL Neutrophils # 13.2 H (1.6-8.9) K/mcL BMP 01/22/18 05:00 Sodium 139 Potassium 4.0 Chloride 93 L Carbon Dioxide 38 H BUN 20 Creatinine 0.98 Glucose 193 H Calcium 8.8 - ABG Interpretation ABG results: ABG ABG pH 7.41 pH Units (7.32-7.45) 01/15/18 15:59 ABG pCO2 46 mmHg (35-45) H 01/15/18 15:59 ABG pO2 79 mmHg (85-104) L 01/15/18 15:59 ABG O2 Saturation 96 % (95-98) 01/15/18 15:59 PT/INR, D-dimer PT 17.8 Seconds (9.4-12.1) H 01/15/18 09:11 Consult Discharge Plan - Plan Instructions: Cellulitis (DC), Tomlinson Catheter Placement and Care (DC) Additional Instructions: 1. Please follow up with your primary care physician within one week. 2. Please continue all of your home medications as prescribed. 3. Please take your steroids and antibiotics as prescribed. Continue your IV vancomycin every 12 hours for a total of 3 more weeks. Taper your steroids as follows: Take 30mg for three days follow by 20mg for three days follow by 10mg for three days. 4. Please follow up with infectious disease 2 weeks after discharge. Please follow up with your urologist as well within 2 to 3 weeks. 5. Please wear your home oxygen at all times. 6. Please return to the hospital for new or worsening symptoms. Referrals: [facility] [Provider Group] Bulmaro Negro MD [Primary Care Provider] - 01/25/18 1:30 pm Jovani Goldberg MD [Partnered Physician] - Prescriptions: predniSONE [PredniSONE] 10 mg PO DAILY #18 tablet <Everette Adams H - Last Filed: 01/22/18 14:58> Date of Encounter: 01/22/18 - Constitutional Vitals: Temp Pulse Resp BP Pulse Ox 97.7 F 88 16 149/96 95 01/22/18 10:36 01/22/18 10:36 01/22/18 10:36 01/22/18 10:36 01/22/18 10:36 Internal Medicine: Result - Labs CBC & Chem 7: 01/22/18 05:00 01/22/18 05:00 Labs: Short CBC 01/22/18 Range/Units 05:00 WBC 16.7 H (4.3-11.1) K/mcL Hgb 11.9 L D (12.9-16.9) g/dL Hct 38.9 (37.5-50.1) % Plt Count 382 (140-400) K/mcL Neutrophils # 13.2 H (1.6-8.9) K/mcL BMP 01/22/18 05:00 Sodium 139 Potassium 4.0 Chloride 93 L Carbon Dioxide 38 H BUN 20 Creatinine 0.98 Glucose 193 H Calcium 8.8 - ABG Interpretation ABG results: ABG ABG pH 7.41 pH Units (7.32-7.45) 01/15/18 15:59 ABG pCO2 46 mmHg (35-45) H 01/15/18 15:59 ABG pO2 79 mmHg (85-104) L 01/15/18 15:59 ABG O2 Saturation 96 % (95-98) 01/15/18 15:59 PT/INR, D-dimer PT 17.8 Seconds (9.4-12.1) H 01/15/18 09:11 - Attending Attestation Sepsis secondary to MRSA bacteremia and MRSA AND ENTEROCOCCUS UTI CONTINUE VANCOMYCIN IV ESOPHAGEAL MASS, ONCOLOGY CONSULTED Biopsy pending The patient wants to go to an ECF, this requires precertification, most likely will be here over the weekend I examined this patient and my medical decision-making was reviewed with the Resident Physician. I agree with the documented findings, disposition and treatment plan as described except to the extent set forth below.
--- NOTE | 2018-01-22 13:32 | Oncology Inp Consult Note ---
<Shayna Alva L - Last Filed: 01/23/18 12:22> Date of Encounter: 01/22/18 Time of Encounter: 13:31 Assessment and Plan (1) Esophageal mass Status: Acute Assessment and plan: Dr. 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 Pathology report currently pending. Further definitive treatment options to be explored following final pathology report and completion of staging scans, which may include combination of chemo/chemoradiation and surgical intervention , pending further workup. Treatment options were introduced at today's visit. Patient has multiple comorbidities and is planned for SNF placement for IV ATB therapy and short term rehab. Highly encouraged participation with therapy team to regain strength, he has not been out of bed since his admission. He is scheduled for PET scan this coming Thursday and a follow up with Dr. Hernandez on Thursday to discuss pathology results, staging scan and assess headway on his functional status to begin discussion on treatment options. Please refer to Dr. Hernandez's attestation below for further details. - Data of Consult Patient: new to practice Consult date: 01/22/18 Requesting Physician: Everette Adams Primary Care Provider: Bulmaro Negro MD - Consult Narrative Reason for consult: Esophageal mass History of present illness: Mr. Jimenez is a 72 year old male with a history of multiple comorbidities including paroxysmal atrial fibrillation on Xarelto, diastolic CHF, diabetes, GERD, hypertension, chronic venous stasis and chronic indwelling tomlinson cathter for urinary retention . Mr. Jimenez has a history of recurrent UTI and presented to ER on 01/15/18 with fever, T max 102 at home and lower abdominal discomfort. During his course of hospitalization he was found to have MRSA bacteremia and MRSA/enterococcus UTI. CT abdomen/pelvis revealed Findings suggestive of cystitis, most likely centered in a diverticulum arising from the left urinary bladder wall. Underlying malignancy is not entirely excluded, along with suspected wall thickening near the gastroesophageal junction and new abnormal bilateral paraesophageal and retrocrural lymph nodes suspicious for metastatic disease. GI consultation led to EGD which found a large, ulcerating, partially circumferential mass in the lower third of the esophagus aloong with evidence of Fong's esophagus. Awaiting pathology report. Patient is planned to discharge to SNF for short term rehab. Mr. Jimenez has multiple comorbidities as listed above. Ambulation is difficult due to severely arthritic right hip for which he has not obtained medical clearance for surgical intervention and repair. 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 Prior to his hospitalization he lives at home with his . He denies use of alcohol and is a nonsmoker. No recent weight loss or appetite changes. He denies dysphagia, odynophagia or sensation of globus. He has no personal or family history of cancer.He relates issues with severe GERD symptoms in his 20' s and 30's for which he treated with OTC medication and has since stopped taking medication as symptoms had resolved. He states that about 2 years ago he was started on prilosec for symptoms of presumed gastric ulcer. Past Med Surg Social Fam HX - Past Medical History Medical history: atrial fibrillation, CHF, diabetes, GERD, hypertension, venous stasis Psychiatric history: no psych history - Past Surgical History Surgical History: appendectomy, herniorrhaphy, knee replacement (Bilateral), orthopedic, other - Social History Smoking Status: Never smoker Smokeless Tobacco Status: No Alcohol use: none Drug use: none - Family History Mother Living Status: Hx Family Cardiac Disorders: Yes (HTN) Father Living Status: Hx Family Cardiac Disorders: Yes (CHF) Hx Family Respiratory Disorders: No Hx Family Cancer: No Hx Family Endocrine Disorder: No Medications and Allergies Labetalol HCl 300 mg PO 0700,1200,2100 10/25/16 [History] Pantoprazole Sodium [Protonix] 40 mg PO QAM 10/25/16 [History] Rivaroxaban [Xarelto] 20 mg PO QAM 10/25/16 [History] Carbidopa/Levodopa [Carbidopa-Levodopa 25-100 Tab] 1 tab PO HS 07/09/17 [History ] Cholecalciferol (Vitamin D3) [Vitamin D3] 5,000 unit PO QAM 07/09/17 [History] Furosemide [Lasix] 40 mg PO DAILY 01/15/18 [History] Lisinopril [Zestril] 20 mg PO DAILY 01/15/18 [History] Oxybutynin Chloride [Ditropan Xl] 15 mg PO DAILY 01/15/18 [History] Potassium Chloride 20 mg PO DAILY 01/15/18 [History] predniSONE [PredniSONE] 10 mg PO DAILY #18 tablet 01/22/18 [Rx] 3 Allergy/AdvReac Type Severity Reaction Status Date / Time No Known Allergies Allergy Verified 01/15/18 08:57 Constitutional: Present: as per HPI, weakness. Absent: anorexia, frequent falls , weight loss Eyes: Absent: change in vision Nose, mouth and throat: Absent: dysphagia, mouth lesions, neck mass, neck pain Cardiovascular: Absent: chest pain, irregular heart rhythm, palpitations Respiratory: Present: dyspnea on exertion. Absent: cough, hemoptysis Gastrointestinal: Absent: abdominal pain, change in bowel habits, dyspepsia, dysphagia, heartburn, hematemesis, hematochezia, nausea, odynophagia, vomiting Genitourinary: urinary incontinence Additional comments: Chronic tomlinson catheter Musculoskeletal: Present: as per HPI, abnormal gait, arthralgias, limited range of motion Integumentary: Present: as per HPI Additional comments: chronic venous stasis BLE Neurological: Absent: focal weakness, frequent falls Hematologic/Lymphatic: Present: as per HPI Oncology - Exam - Constitutional Vitals: Temp Pulse Resp BP Pulse Ox 97.7 F 88 16 149/96 95 01/22/18 10:36 01/22/18 10:36 01/22/18 10:36 01/22/18 10:36 01/22/18 10:36 General appearance: cooperative, morbidly obese, no acute distress, no febrile Exam: chronically ill appearing - Head Head exam: Present: atraumatic - ENT ENT exam: Present: mucous membranes moist - Respiratory Respiratory exam: Present: decreased breath sounds, CTAB. Absent: respiratory distress - Cardiovascular Cardiovascular exam: Present: irregular rhythm - GI/Abdominal GI/Abdominal exam: Present: normal bowel sounds, soft. Absent: tenderness - Additional comments: tomlinson catheter - Extremities Exam Additional comments: chronic skin changes to BLE related to venous stasis/stasis dermatitis, 2+ HEAD CONTROL CLERK edema BLE - Neurological Exam Neurological exam: Present: alert, oriented X3, no focal deficits, strengths equal and symetr throughout - Psychiatric Psychiatric exam: Present: normal affect, normal mood - Skin Skin exam: Present: normal color, warm Oncology - Results Labs: Short CBC 01/22/18 Range/Units 05:00 WBC 16.7 H (4.3-11.1) K/mcL Hgb 11.9 L D (12.9-16.9) g/dL Hct 38.9 (37.5-50.1) % Plt Count 382 (140-400) K/mcL Neutrophils # 13.2 H (1.6-8.9) K/mcL BMP 01/22/18 05:00 Sodium 139 Potassium 4.0 Chloride 93 L Carbon Dioxide 38 H BUN 20 Creatinine 0.98 Glucose 193 H Calcium 8.8 Consult Discharge Plan - Plan Instructions: Cellulitis (DC), Tomlinson Catheter Placement and Care (DC) Additional Instructions: 1. Please follow up with your primary care physician within one week. 2. Please continue all of your home medications as prescribed. 3. Please take your steroids and antibiotics as prescribed. Continue your IV vancomycin every 12 hours for a total of 3 more weeks. Taper your steroids as follows: Take 30mg for three days follow by 20mg for three days follow by 10mg for three days. 4. Please follow up with infectious disease 2 weeks after discharge. Please follow up with your urologist as well within 2 to 3 weeks. 5. Please wear your home oxygen at all times. 6. Please return to the hospital for new or worsening symptoms. Referrals: [facility] [Provider Group] Bulmaro Negro MD [Primary Care Provider] - 01/25/18 1:30 pm Jovani Goldberg MD [Partnered Physician] - Prescriptions: predniSONE [PredniSONE] 10 mg PO DAILY #18 tablet <Andrea Hernandez - Last Filed: 01/23/18 20:38> Date of Encounter: 01/23/18 - Data of Consult Requesting Physician: Everette Adams Primary Care Provider: Bulmaro Negro MD - Consult Narrative History of present illness: Mr. Jimenez is a 72 year old male Oncology - Exam - Constitutional Vitals: Temp Pulse Resp BP Pulse Ox 98.1 F 74 16 110/68 92 01/23/18 15:07 01/23/18 15:07 01/23/18 15:22 01/23/18 15:07 01/23/18 15:22 Oncology - Results Labs: Short CBC 01/23/18 Range/Units 04:00 WBC 13.4 H (4.3-11.1) K/mcL Hgb 10.5 L (12.9-16.9) g/dL Hct 35.5 L (37.5-50.1) % Plt Count 352 (140-400) K/mcL Neutrophils # 9.9 H (1.6-8.9) K/mcL BMP 01/23/18 04:00 Sodium 136 Potassium 3.4 L Chloride 94 L Carbon Dioxide 38 H BUN 21 Creatinine 0.96 Glucose 179 H Calcium 8.4 L - Attending Attestation I have seen and examined Mr. Jimenez and agree with Ms. Alva's assessment. Mr. Jimenez is a very pleasant 72-year-old man with multiple medical comorbities including chronic indwelling tomlinson and morbid obesity who presents with new locally advanced if not metastatic distal esophageal cancer, likely adenocarcinoma. Pathology is pending. He has retrocrural adenopathy which is concerning. Working under the assumption this is at least locally advanceed esophageal adenocarcinoma, we discussed the role of trimodality therapy with concurrent chemoradiation and possibly surgery. His comorbidities may preclude surgery and will make treatment difficult. Also discussed palliative chemotherapy/radiation options as well. We will obtain outpatient PET/CT to complete staging and will await pathology prior to finalizing treatment plans. He will likely be d/c to SNF for rehab, and encouraged active participation in his PT/OT plan to aid in the above.
[2018-01-22] MEDS: Carbidopa/Levodopa 25/100 TABLET PO SCH (22:23)
[2018-01-23] MEDS: Ipratropium/Albuterol Neb 3 ML IH SCH ×6 (04:00→23:41)
[2018-01-23 05:05] LABS: Basophils % 0.3 %; Eosinophils # 0.3 K/mcL (0.0-0.6); Eosinophils % 1.9 %; Hematocrit 35.5 % (37.5-50.1); Hemoglobin 10.5 g/dL (12.9-16.9); Immature Granulocytes % 1.1 % (0-4); Lymphocytes # 1.8 K/mcL (0.6-4.6); Lymphocytes % 13.8 %; Mean Corpuscular HGB Conc 29.6 g/dL (31.6-35.5); Mean Corpuscular Hemoglobin 27.3 pg (28.0-33.3); Mean Corpuscular Volume 92.4 fL (83.0-100.0); Mean Platelet Volume 10.1 fL (9.4-12.4); Monocytes # 1.2 K/mcL (0.0-1.3); Monocytes % 8.7 %; Neutrophils # 9.9 K/mcL (1.6-8.9); Platelet Count 352 K/mcL (140-400); Red Blood Count 3.84 M/mcL (4.19-5.50); Red Cell Distribution Width 13.6 % (11.5-14.5); Segmented Neutrophils % 74.2 %
[2018-01-23 05:12] LABS: BUN/Creatinine Ratio 22 (6-26); Blood Urea Nitrogen 21 mg/dL (8-23); Calcium 8.4 mg/dL (8.6-10.3); Carbon Dioxide 38 mEq/L (23-29); Chloride 94 mEq/L (98-107); Glucose 179 mg/dL (70-105); Osmolality,Calculated 289 (280-300); Potassium 3.4 mEq/L (3.5-5.1); Sodium 136 mEq/L (136-145); eGFR For African Americans > 60 (> 60); eGFR For Non-African Americans > 60 (> 60)
[2018-01-23] MEDS: *HR* Rivaroxaban 10 MG TABLET PO SCH (08:02)
[2018-01-23] MEDS: predniSONE 10 MG TABLET PO SCH (08:03)
[2018-01-23] MEDS: Insulin LISPRO 300 UNITS/3 ML VIAL SQ SCH ×4 (08:04→20:38)
[2018-01-23] MEDS: Cholecalciferol (D-3) 1,000 UNIT TABLET PO SCH (08:04)
[2018-01-23] MEDS: Lisinopril 20 MG TABLET PO SCH (08:04)
[2018-01-23] MEDS: Furosemide 40 MG TABLET PO SCH ×2 (08:04→15:52)
--- NOTE | 2018-01-23 13:32 | Internal Med Progress Note ---
Date of Encounter: 01/23/18 Time of Encounter: 13:28 - Assessment and plan (1) Sepsis Current Visit: Yes Status: Resolved Assessment and plan: Sepsis secondary to MRSA bacteremia and MRSA AND ENTEROCOCCUS UTI The patient wants to go to an ECF, this requires precertification, most likely will be here over the weekend Continue IV Vancomycin Day 9. 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 Lower extremity cellulitis vs. UTI. Recommend obtaining MERLINE for further visualization. Continue vancomycin for at least 4 weeks for complicated bacteremia. Will hold on rifampin given patient is also on Xarelto, the current risk of thrombus is greater than the need for rifampin. He will require weekly labs: BCB, BMP, Vanc trough, ESR/CRP Follow up with ID 2 weeks post discharge . 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 Continue IV abx and steroids. Supplement with oxygen as needed. Was informed by Katja Kearney with case management that PT/OT reported that the patient required oxygen during walk test. Patient oxygen dropped down to 87% on room air and was recovered to 94% with 5L. I request that the walk test be repeated and attempt to have patient recover on 3-4L. (4) Acute respiratory failure with hypoxia Current Visit: Yes Status: Resolved Assessment and plan: Acute respiratory failure with hypoxia most likely secondary to acute exacerbation of COPD. Pt with oxygen saturation of 87% on room air on admit. Current oxygen saturation of 98% on 4L NC. Continue to monitor. (5) Cellulitis of both lower extremities Current Visit: Yes Status: Acute Assessment and plan: Appear to be slowly improving. Has significant venous stasis bilaterally. Continue IV abx. (6) Hypertension Current Visit: No Status: Chronic Assessment and plan: Controlled at this time. Continue current medications. Qualifiers: Hypertension type: essential hypertension Qualified Code(s): I10 - Essential (primary) hypertension (7) Diabetes mellitus Current Visit: No Status: Chronic Assessment and plan: Currently on accuchecks and coverage. Qualifiers: Diabetes mellitus type: type 2 Diabetes mellitus complication status: with hyperglycemia Diabetes mellitus terminal operations supervisor insulin use: without penitentiary use Qualified Code(s): E11.65 - Type 2 diabetes mellitus with hyperglycemia (8) A-fib Current Visit: No Status: Chronic Assessment and plan: Rate controlled.Remains on Xarelto. Qualifiers: Atrial fibrillation type: chronic Qualified Code(s): I48.2 - Chronic atrial fibrillation (9) UTI (urinary tract infection) Current Visit: Yes Status: Acute Assessment and plan: Pt with chronic tomlinson and UTI on admission. Urine culture with MRSA. New tomlinson catheter changed on 01/18/[address] Goldberg. On IV abx at this time. Qualifiers: Urinary tract infection type: catheter-associated UTI Indwelling urinary catheter type: indwelling urethral catheter Encounter type: subsequent encounter Qualified Code(s): T83.511D - Infection and inflammatory reaction due to indwelling urethral catheter, subsequent encounter; N39.0 - Urinary tract infection, site not specified; N39.0 - Urinary tract infection, site not specified (10) Abnormal CT of the abdomen Current Visit: Yes Status: Acute Assessment and plan: CT abdomen on 01/15/2018 report reads suspected wall thickening near the gastroesophageal junction. While this appearance could be seen with esophagitis (especially given the presence of a small sliding hiatal hernia), there are new abnormal bilateral paraesophageal and retrocrural lymph nodes suspicious for metastatic disease. Recommend gastroenterology evaluation with consideration for endoscopy. GI is consulted. EGD performed. Per report, EGD findings included Fong's esophagus. On report, a large, ulcerative mass was found in the lower 3rd of the esophagus. Oncology was consult to. Spoke with the SEASONAL TAX PREPARER who agrees to see the patient later today. Awaiting recommendations from G.I. and oncology (11) Right hip pain Current Visit: Yes Status: Chronic Assessment and plan: Due to osteoarthritis. Monitoring closely in light of bacteremia. - Subjective Interval history: Denies any chest pain, no abdominal pain, no dysuria, no diarrhea, no fevers, no chills or shortness of breath - Constitutional Vitals: Temp Pulse Resp BP Pulse Ox 98.4 F 78 18 105/65 96 01/23/18 10:40 01/23/18 10:40 01/23/18 11:07 01/23/18 10:40 01/23/18 11:07 General appearance: Present: A&O X 3, obese, answers questions appropriately Exam: - Head Head exam: Present: atraumatic, normocephalic - Eye Eye exam: Present: PERRL, conjuntiva pink, sclera anicteric Pupils: Present: PERRL - ENT ENT exam: Present: mucous membranes dry - Neck Neck exam general surgery: Present: supple, trachea midline. Absent: lymphadenopathy - Respiratory Respiratory exam: Present: CTAB. Absent: accessory muscle use, rales, rhonchi, wheezes - Cardiovascular Cardiovascular exam: Present: RRR, +S1, +S2. Absent: diastolic murmur, gallop, rubs, systolic murmur - GI/Abdominal GI/Abdominal exam: Present: normal bowel sounds, soft, no peritoneal signs. Absent: distended, tenderness - exam: Absent: scrotal swelling, testicular tenderness, urethral discharge Additional comments: Tomlinson catheter is in place. Urine is yellow with no blood - Extremities Exam Extremities exam: Present: pedal edema, warm, radial pulses palpable and symmetrical. Absent: calf tenderness, cyanotic Additional comments: Cellulitis present on bilateral lower extremities with chronic venous stasis. Appears to be improving. Distal pulses +2/4 bilaterally. Trace pitting present on bilateral LE. Bilateral lower extremities are mildly swollen. - Neurological Exam Neurological exam: Present: CN II-XII intact, oriented X3, no focal deficits. Absent: pronater drift, facial droop, speech deficit - Skin Skin exam: Present: dry, intact Internal Medicine: Result - Labs CBC & Chem 7: 01/23/18 04:00 01/23/18 04:00 Labs: Short CBC 01/23/18 Range/Units 04:00 WBC 13.4 H (4.3-11.1) K/mcL Hgb 10.5 L (12.9-16.9) g/dL Hct 35.5 L (37.5-50.1) % Plt Count 352 (140-400) K/mcL Neutrophils # 9.9 H (1.6-8.9) K/mcL BMP 01/23/18 04:00 Sodium 136 Potassium 3.4 L Chloride 94 L Carbon Dioxide 38 H BUN 21 Creatinine 0.96 Glucose 179 H Calcium 8.4 L - ABG Interpretation ABG results: ABG ABG pH 7.41 pH Units (7.32-7.45) 01/15/18 15:59 ABG pCO2 46 mmHg (35-45) H 01/15/18 15:59 ABG pO2 79 mmHg (85-104) L 01/15/18 15:59 ABG O2 Saturation 96 % (95-98) 01/15/18 15:59 PT/INR, D-dimer PT 17.8 Seconds (9.4-12.1) H 01/15/18 09:11 Consult Discharge Plan - Plan Instructions: Cellulitis (DC), Tomlinson Catheter Placement and Care (DC) Additional Instructions: 1. Please follow up with your primary care physician within one week. 2. Please continue all of your home medications as prescribed. 3. Please take your steroids and antibiotics as prescribed. Continue your IV vancomycin every 12 hours for a total of 3 more weeks. Taper your steroids as follows: Take 30mg for three days follow by 20mg for three days follow by 10mg for three days. 4. Please follow up with infectious disease 2 weeks after discharge. Please follow up with your urologist as well within 2 to 3 weeks. 5. Please wear your home oxygen at all times. 6. Please return to the hospital for new or worsening symptoms. Referrals: [facility] [Provider Group] Bulmaro Negro MD [Primary Care Provider] - 01/25/18 1:30 pm Jovani Goldberg MD [Partnered Physician] - Prescriptions: predniSONE [PredniSONE] 10 mg PO DAILY #18 tablet
[2018-01-23] MEDS: Carbidopa/Levodopa 25/100 TABLET PO SCH (20:37)
[2018-01-23] MEDS: *HR* HYDROcodone/Acet 5/325 mg TABLET PO PRN (21:59)
[2018-01-24] MEDS: Ipratropium/Albuterol Neb 3 ML IH SCH ×5 (04:40→20:12)
[2018-01-24] MEDS: *HR* Rivaroxaban 10 MG TABLET PO SCH (08:33)
[2018-01-24] MEDS: Furosemide 40 MG TABLET PO SCH ×2 (08:33→17:32)
[2018-01-24] MEDS: Lisinopril 20 MG TABLET PO SCH (08:33)
[2018-01-24] MEDS: predniSONE 10 MG TABLET PO SCH (08:33)
[2018-01-24] MEDS: Cholecalciferol (D-3) 1,000 UNIT TABLET PO SCH (08:33)
[2018-01-24] MEDS: Insulin LISPRO 300 UNITS/3 ML VIAL SQ SCH ×4 (08:34→21:07)
--- NOTE | 2018-01-24 08:42 | Internal Med Progress Note ---
Date of Encounter: 01/24/18 Time of Encounter: 08:41 - Assessment and plan (1) Sepsis Current Visit: Yes Status: Resolved Assessment and plan: Sepsis secondary to MRSA bacteremia and MRSA AND ENTEROCOCCUS UTI The patient wants to go to an ECF, this requires precertification, most likely will be here over the weekend Continue IV Vancomycin Day 10. 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 Lower extremity cellulitis vs. UTI. Recommend obtaining MERLINE for further visualization. Continue vancomycin for at least 4 weeks for complicated bacteremia. Will hold on rifampin given patient is also on Xarelto, the current risk of thrombus is greater than the need for rifampin. He will require weekly labs: BCB, BMP, Vanc trough, ESR/CRP Follow up with ID 2 weeks post discharge . 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 Continue IV abx and steroids. Supplement with oxygen as needed. Was informed by Katja Kearney with case management that PT/OT reported that the patient required oxygen during walk test. Patient oxygen dropped down to 87% on room air and was recovered to 94% with 5L. I request that the walk test be repeated and attempt to have patient recover on 3-4L. (4) Acute respiratory failure with hypoxia Current Visit: Yes Status: Resolved Assessment and plan: Acute respiratory failure with hypoxia most likely secondary to acute exacerbation of COPD. Pt with oxygen saturation of 87% on room air on admit. Current oxygen saturation of 98% on 4L NC. Continue to monitor. (5) Cellulitis of both lower extremities Current Visit: Yes Status: Acute Assessment and plan: Appear to be slowly improving. Has significant venous stasis bilaterally. Continue IV abx. (6) Hypertension Current Visit: No Status: Chronic Assessment and plan: Controlled at this time. Continue current medications. Qualifiers: Hypertension type: essential hypertension Qualified Code(s): I10 - Essential (primary) hypertension (7) Diabetes mellitus Current Visit: No Status: Chronic Assessment and plan: Currently on accuchecks and coverage. Qualifiers: Diabetes mellitus type: type 2 Diabetes mellitus complication status: with hyperglycemia Diabetes mellitus snf insulin use: without snf use Qualified Code(s): E11.65 - Type 2 diabetes mellitus with hyperglycemia (8) A-fib Current Visit: No Status: Chronic Assessment and plan: Rate controlled.Remains on Xarelto. Qualifiers: Atrial fibrillation type: chronic Qualified Code(s): I48.2 - Chronic atrial fibrillation (9) UTI (urinary tract infection) Current Visit: Yes Status: Acute Assessment and plan: Pt with chronic tomlinson and UTI on admission. Urine culture with MRSA. New tomlinson catheter changed on 01/18/[address] Goldberg. On IV abx at this time. Qualifiers: Urinary tract infection type: catheter-associated UTI Indwelling urinary catheter type: indwelling urethral catheter Encounter type: subsequent encounter Qualified Code(s): T83.511D - Infection and inflammatory reaction due to indwelling urethral catheter, subsequent encounter; N39.0 - Urinary tract infection, site not specified; N39.0 - Urinary tract infection, site not specified (10) Abnormal CT of the abdomen Current Visit: Yes Status: Acute Assessment and plan: CT abdomen on 01/15/2018 report reads suspected wall thickening near the gastroesophageal junction. While this appearance could be seen with esophagitis (especially given the presence of a small sliding hiatal hernia), there are new abnormal bilateral paraesophageal and retrocrural lymph nodes suspicious for metastatic disease. Recommend gastroenterology evaluation with consideration for endoscopy. GI is consulted. EGD performed. Per report, EGD findings included Fong's esophagus. On report, a large, ulcerative mass was found in the lower 3rd of the esophagus. Oncology was consult to. Spoke with the PEACE OFFICER who agrees to see the patient later today. Awaiting recommendations from G.I. and oncology (11) Right hip pain Current Visit: Yes Status: Chronic Assessment and plan: Due to osteoarthritis. Monitoring closely in light of bacteremia. - Subjective Interval history: No new complaints Denies any chest pain, no abdominal pain, no dysuria, no diarrhea, no fevers, no chills or shortness of breath - Constitutional Vitals: Temp Pulse Resp BP Pulse Ox 98.2 F 82 16 149/91 97 01/24/18 06:26 01/24/18 06:26 01/24/18 07:28 01/24/18 06:26 01/24/18 07:28 General appearance: Present: A&O X 3, obese, answers questions appropriately Exam: - Head Head exam: Present: atraumatic, normocephalic - Eye Eye exam: Present: PERRL, conjuntiva pink, sclera anicteric Pupils: Present: PERRL - ENT ENT exam: Present: mucous membranes dry - Neck Neck exam general surgery: Present: supple, trachea midline. Absent: lymphadenopathy - Respiratory Respiratory exam: Present: CTAB. Absent: accessory muscle use, rales, rhonchi, wheezes - Cardiovascular Cardiovascular exam: Present: RRR, +S1, +S2. Absent: diastolic murmur, gallop, rubs, systolic murmur - GI/Abdominal GI/Abdominal exam: Present: normal bowel sounds, soft, no peritoneal signs. Absent: distended, tenderness - exam: Absent: scrotal swelling, testicular tenderness, urethral discharge Additional comments: Tomlinson catheter is in place. Urine is yellow with no blood - Extremities Exam Extremities exam: Present: pedal edema, warm, radial pulses palpable and symmetrical. Absent: calf tenderness, cyanotic Additional comments: Cellulitis present on bilateral lower extremities with chronic venous stasis. Appears to be improving. Distal pulses +2/4 bilaterally. Trace pitting present on bilateral LE. Bilateral lower extremities are mildly swollen. - Neurological Exam Neurological exam: Present: CN II-XII intact, oriented X3, no focal deficits. Absent: pronater drift, facial droop, speech deficit - Skin Skin exam: Present: dry, intact Internal Medicine: Result - Labs CBC & Chem 7: 01/23/18 04:00 01/23/18 04:00 - ABG Interpretation ABG results: ABG ABG pH 7.41 pH Units (7.32-7.45) 01/15/18 15:59 ABG pCO2 46 mmHg (35-45) H 01/15/18 15:59 ABG pO2 79 mmHg (85-104) L 01/15/18 15:59 ABG O2 Saturation 96 % (95-98) 01/15/18 15:59 PT/INR, D-dimer PT 17.8 Seconds (9.4-12.1) H 01/15/18 09:11 Consult Discharge Plan - Plan Instructions: Cellulitis (DC), Tomlinson Catheter Placement and Care (DC) Additional Instructions: 1. Please follow up with your primary care physician within one week. 2. Please continue all of your home medications as prescribed. 3. Please take your steroids and antibiotics as prescribed. Continue your IV vancomycin every 12 hours for a total of 3 more weeks. Taper your steroids as follows: Take 30mg for three days follow by 20mg for three days follow by 10mg for three days. 4. Please follow up with infectious disease 2 weeks after discharge. Please follow up with your urologist as well within 2 to 3 weeks. 5. Please wear your home oxygen at all times. 6. Please return to the hospital for new or worsening symptoms. Referrals: [facility] [Provider Group] Bulmaro Negro MD [Primary Care Provider] - 01/25/18 1:30 pm Jovani Goldberg MD [Partnered Physician] - Prescriptions: predniSONE [PredniSONE] 10 mg PO DAILY #18 tablet
[2018-01-24] MEDS: Carbidopa/Levodopa 25/100 TABLET PO SCH (21:07)
[2018-01-25] MEDS: Ipratropium/Albuterol Neb 3 ML IH SCH ×7 (00:07→23:23)
--- NOTE | 2018-01-25 08:12 | Infectious Disease Progress No ---
Date of Encounter: 01/25/18 Time of Encounter: 07:55 - Assessment and Plan (1) Bacteremia Current Visit: Yes Status: Acute MRSA Bacteremia Complicated due to presence of bilateral prosthetic joints Source currently unclear Suspect skin source that passed through the urine caused MRSA in urine, though can't rule out UTI as source Left lower extremity warmth and erythema suggestive of cellulitis or recent cellulitis No stigmata of IE appreciated Blood cultures on 01/15: 2/ positive for MRSA Blood cultures on 01/16: 2 negative TTE performed on 01/16: EF 60-65% with mild diastolic dysfunction, no vegetation seen One major and one minor criteria present PICC line in place in right arm Recommend MERLINE for further visualization, per guidelines Continue vancomycin for at least 4 weeks from time of negative blood culture for complicated bacteremia Will hold on rifampin given patient is also on Xarelto, the current risk of thrombus is greater than the need for rifampin Recommend labs tomorrow if patient still here for evaluation of current treatment regimen and possible side effects He will require weekly labs: CBC, BMP, Vanc trough, ESR/CRP Follow up with ID 2 weeks post discharge (2) Sepsis Current Visit: Yes Status: Resolved Present upon admission Now resolved with 1 SIRS criteria present - Leukocytosis (seen in labs on 01/23) MRSA bacteremia and MRSA UTI/Enterococcus UTI Patient has been receiving steroids, possibly contributory to WBC Qualifiers: Sepsis type: sepsis due to unspecified organism Qualified Code(s): A41.9 - Sepsis, unspecified organism (3) Esophageal mass Current Visit: Yes Status: Acute Patient underwent 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 Biopsies were obtained Oncology was consulted Continued plan per oncology and primary team (4) Knee joint replacement status Current Visit: Yes Status: Acute Presence of bilateral knee replacements complicates MRSA bacteremia No erythema, warmth, or tenderness present in bilateral knees Will not give rifampin as patient is also on Xarelto Qualifiers: Laterality: bilateral Qualified Code(s): Z96.653 - Presence of artificial knee joint, bilateral (5) Venous stasis Current Visit: Yes Status: Acute Patient has venous stasis with chronic skin changes present on bilateral lower extremities Some evidence of scabs on lower extremities could be a nidus of MRSA entrance (6) Chronic indwelling Adame catheter Current Visit: Yes Status: Acute Patient has history of UTIs Presented with MRSA and enterococcus UTI Plan as above - Subjective Interval history: Patient resting comfortably in bed this morning with no concerns/complaints. He denies having any fevers/chills, dyspnea, nausea/vomiting, or chest pain. He had an endoscopy performed that did show an esophageal mass. He was seen by oncology and it appears that final pathology and staging will be performed prior to undergoing therapy. Vitals have been stable, patient has been afebrile, and last CBC showed improving WBC. Infect Dis PN-Objective Data - Labs CBC & Chem 7: 01/26/18 02:52 01/26/18 02:52 Labs: Laboratory Results - last 24 hr 01/24/18 01/24/18 01/25/18 07:55 19:48 07:00 POC Glucose 160 H 289 H 182 H Cultures: Cultures 01/16/18 06:53 Blood Culture - Final Peripheral Venipuncture No growth. 01/16/18 06:53 Blood Culture - Final Peripheral Venipuncture No growth. Exam - Constitutional Vitals: Temp Pulse Resp BP Pulse Ox 98.8 F 74 16 151/81 97 01/25/18 07:04 01/25/18 07:04 01/25/18 07:04 01/25/18 07:04 01/25/18 07:04 - Additional findings Additional findings: General: Cooperative, pleasant, no acute distress, alert and oriented 3, answers questions appropriately HEENT: Normocephalic, atraumatic, neck supple, trachea midline, Conjunctiva pink , sclera anicteric, oral mucosa moist, no conjunctival hemorrhages noted Respiratory: No accessory muscle usage, clear to auscultation bilaterally, no wheezes/rhonchi/rales appreciated Cardiovascular: Regular rate and rhythm, S1 and S2 present, no murmurs/rubs/ gallops/clicks appreciated GI/abdominal: Nondistended, nontender, soft, normal bowel sounds, no peritoneal signs Extremities: No calf tenderness, chronic darkening of skin from venous stasis in bilateral lower extremities, no pedal edema appreciated on patient right, 1 + pedal edema on patient left, increased diameter of left lower extremity ( chronic), no asymmetric warmth in LE today, no stigmata of endocarditis, no tenderness elicited in any joints aside from right hip (chronic), no swelling, erythema, or warmth noted in any joints or in spine Neurological: Alert and oriented 3, no facial droop, no focal deficits Consult Discharge Plan - Plan Instructions: Cellulitis (DC), Adame Catheter Placement and Care (DC) Additional Instructions: 1. Please follow up with your primary care physician within one week. 2. Please continue all of your home medications as prescribed. 3. Please take your steroids and antibiotics as prescribed. Continue your IV vancomycin every 12 hours for a total of 3 more weeks. Taper your steroids as follows: Take 30mg for three days follow by 20mg for three days follow by 10mg for three days. 4. Please follow up with infectious disease 2 weeks after discharge. Please follow up with your urologist as well within 2 to 3 weeks. 5. Please wear your home oxygen at all times. 6. Please return to the hospital for new or worsening symptoms. Referrals: [facility] [Provider Group] Bulmaro Negro MD [Primary Care Provider] - 01/25/18 1:30 pm Jovani Goldberg MD [Partnered Physician] - Prescriptions: HYDROcodone/Acet 5/325 mg [[place] 5-325 mg] 1 tab PO Q6HR PRN 7 Days #28 tablet PRN Reason: Moderate Pain Omeprazole [PriLOSEC] 40 mg PO BID #60 cap predniSONE [PredniSONE] 10 mg PO DAILY #18 tablet - Attending Attestation I examined this patient and my medical decision-making was reviewed with the Resident Physician. I agree with the documented findings, disposition and treatment plan as described except to the extent set forth below.
--- NOTE | 2018-01-25 08:31 | Physician Discharge Referral ---
ExtendedCare Referral Info Provider in Charge after Transfer: PCP Institutional Level of Care: Skilled - Diagnosis (1) Sepsis Status: Resolved (2) Esophageal mass Status: Acute - Transfer Medications Prescriptions: HYDROcodone/Acet 5/325 mg [[place] 5-325 mg] 1 tab PO Q6HR PRN 7 Days #28 tablet PRN Reason: Moderate Pain Omeprazole [PriLOSEC] 40 mg PO BID #60 cap predniSONE [PredniSONE] 10 mg PO DAILY #18 tablet Home Medications: Labetalol HCl 300 mg PO 0700,1200,2100 10/25/16 [History] Rivaroxaban [Xarelto] 20 mg PO QAM 10/25/16 [History] Carbidopa/Levodopa [Carbidopa-Levodopa 25-100 Tab] 1 tab PO HS 07/09/17 [History ] Cholecalciferol (Vitamin D3) [Vitamin D3] 5,000 unit PO QAM 07/09/17 [History] Furosemide [Lasix] 40 mg PO DAILY 01/15/18 [History] Lisinopril [Zestril] 20 mg PO DAILY 01/15/18 [History] Oxybutynin Chloride [Ditropan Xl] 15 mg PO DAILY 01/15/18 [History] Potassium Chloride 20 mg PO DAILY 01/15/18 [History] predniSONE [PredniSONE] 10 mg PO DAILY #18 tablet 01/22/18 [Rx] HYDROcodone/Acet 5/325 mg [[place] 5-325 mg] 1 tab PO Q6HR PRN 7 Days #28 tablet 01/25/18 [Rx] Omeprazole [PriLOSEC] 40 mg PO BID #60 cap 01/25/18 [Rx] Allergies/Adverse Reactions: 3 Allergy/AdvReac Type Severity Reaction Status Date / Time No Known Allergies Allergy Verified 01/15/18 08:57 - Respiratory Orders Smoking Cessation: Smoking cessation has been advised. For more information, call the [employer] Tobacco Quit Line at 8-092-IAWG-NOW. 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 Oncology was consulted, needs to follow-up as outpatient Vancomycin day 11 Needs to continue IV vancomycin for 4 weeks starting on 01/16/18 send on : Omeprazole 40 mg BID time spent : 40 min I examined this patient and my medical decision-making was reviewed with the Resident Physician. I agree with the documented findings, disposition and treatment plan as described except to the extent set forth below. CERTIFICATION: I certify that the transfer of the above named patient to an Extended Care Facility is necessary for the continuing treatment of the diagnosis listed. The above information is true and accurate reflection of patient's current condition. Confidential - Redisclosure prohibited without a patient's written consent.
[2018-01-25] MEDS: Cholecalciferol (D-3) 1,000 UNIT TABLET PO SCH (08:41)
[2018-01-25] MEDS: *HR* Rivaroxaban 10 MG TABLET PO SCH (08:41)
[2018-01-25] MEDS: Furosemide 40 MG TABLET PO SCH ×2 (08:41→16:35)
[2018-01-25] MEDS: predniSONE 10 MG TABLET PO SCH (08:42)
[2018-01-25] MEDS: Insulin LISPRO 300 UNITS/3 ML VIAL SQ SCH ×4 (08:42→20:32)
[2018-01-25] MEDS: Lisinopril 20 MG TABLET PO SCH (08:42)
--- NOTE | 2018-01-25 09:22 | Internal Med Progress Note ---
Date of Encounter: 01/25/18 Time of Encounter: 09:20 - Assessment and plan (1) Sepsis Current Visit: Yes Status: Resolved Assessment and plan: Sepsis secondary to MRSA bacteremia and MRSA AND ENTEROCOCCUS UTI The patient wants to go to an ECF, this requires precertification, of to discharge if placement is arranged Continue IV Vancomycin Day 11. 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 Lower extremity cellulitis vs. UTI. Recommend obtaining MERLINE for further visualization. Continue vancomycin for at least 4 weeks for complicated bacteremia. Will hold on rifampin given patient is also on Xarelto, the current risk of thrombus is greater than the need for rifampin. He will require weekly labs: BCB, BMP, Vanc trough, ESR/CRP Follow up with ID 2 weeks post discharge . 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 Continue IV abx and steroids. Supplement with oxygen as needed. Was informed by Katja Kearney with case management that PT/OT reported that the patient required oxygen during walk test. Patient oxygen dropped down to 87% on room air and was recovered to 94% with 5L. I request that the walk test be repeated and attempt to have patient recover on 3-4L. (4) Acute respiratory failure with hypoxia Current Visit: Yes Status: Resolved Assessment and plan: Acute respiratory failure with hypoxia most likely secondary to acute exacerbation of COPD. Pt with oxygen saturation of 87% on room air on admit. Current oxygen saturation of 98% on 4L NC. Continue to monitor. (5) Cellulitis of both lower extremities Current Visit: Yes Status: Acute Assessment and plan: Appear to be slowly improving. Has significant venous stasis bilaterally. Continue IV abx. (6) Hypertension Current Visit: No Status: Chronic Assessment and plan: Controlled at this time. Continue current medications. Qualifiers: Hypertension type: essential hypertension Qualified Code(s): I10 - Essential (primary) hypertension (7) Diabetes mellitus Current Visit: No Status: Chronic Assessment and plan: Currently on accuchecks and coverage. 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 Qualifiers: Atrial fibrillation type: chronic Qualified Code(s): I48.2 - Chronic atrial fibrillation (9) UTI (urinary tract infection) Current Visit: Yes Status: Acute Assessment and plan: Pt with chronic tomlinson and UTI on admission. Urine culture with MRSA. New tomlinson catheter changed on 01/18/[address] Goldberg. On IV abx at this time. Qualifiers: Urinary tract infection type: catheter-associated UTI Indwelling urinary catheter type: indwelling urethral catheter Encounter type: subsequent encounter Qualified Code(s): T83.511D - Infection and inflammatory reaction due to indwelling urethral catheter, subsequent encounter; N39.0 - Urinary tract infection, site not specified; N39.0 - Urinary tract infection, site not specified (10) Abnormal CT of the abdomen Current Visit: Yes Status: Acute Assessment and plan: CT abdomen on 01/15/2018 report reads suspected wall thickening near the gastroesophageal junction. While this appearance could be seen with esophagitis (especially given the presence of a small sliding hiatal hernia), there are new abnormal bilateral paraesophageal and retrocrural lymph nodes suspicious for metastatic disease. Recommend gastroenterology evaluation with consideration for endoscopy. GI is consulted. EGD performed. Per report, EGD findings included Fong's esophagus. On report, a large, ulcerative mass was found in the lower 3rd of the esophagus. Oncology was consult to. Spoke with the MAGNETO REPAIRER who agrees to see the patient later today. Awaiting recommendations from G.I. and oncology (11) Right hip pain Current Visit: Yes Status: Chronic Assessment and plan: Due to osteoarthritis. Monitoring closely in light of bacteremia. - Subjective Interval history: No new complaints Ready to be discharged Denies any chest pain, no abdominal pain, no dysuria, no diarrhea, no fevers, no chills or shortness of breath - Constitutional Vitals: Temp Pulse Resp BP Pulse Ox 98.8 F 74 16 151/81 97 01/25/18 07:04 03/05/18 07:04 01/25/18 07:04 01/25/18 07:04 01/25/18 07:04 General appearance: Present: A&O X 3, obese, answers questions appropriately Exam: - Head Head exam: Present: atraumatic, normocephalic - Eye Eye exam: Present: PERRL, conjuntiva pink, sclera anicteric Pupils: Present: PERRL - ENT ENT exam: Present: mucous membranes dry - Neck Neck exam general surgery: Present: supple, trachea midline. Absent: lymphadenopathy - Respiratory Respiratory exam: Present: CTAB. Absent: accessory muscle use, rales, rhonchi, wheezes - Cardiovascular Cardiovascular exam: Present: RRR, +S1, +S2. Absent: diastolic murmur, gallop, rubs, systolic murmur - GI/Abdominal GI/Abdominal exam: Present: normal bowel sounds, soft, no peritoneal signs. Absent: distended, tenderness - exam: Absent: scrotal swelling, testicular tenderness, urethral discharge Additional comments: Tomlinson catheter is in place. Urine is yellow with no blood - Extremities Exam Extremities exam: Present: pedal edema, warm, radial pulses palpable and symmetrical. Absent: calf tenderness, cyanotic Additional comments: Cellulitis present on bilateral lower extremities with chronic venous stasis. Appears to be improving. Distal pulses +2/4 bilaterally. Trace pitting present on bilateral LE. Bilateral lower extremities are mildly swollen. - Neurological Exam Neurological exam: Present: CN II-XII intact, oriented X3, no focal deficits. Absent: pronater drift, facial droop, speech deficit - Skin Skin exam: Present: dry, intact Internal Medicine: Result - Labs CBC & Chem 7: 01/23/18 04:00 01/23/18 04:00 - ABG Interpretation ABG results: ABG ABG pH 7.41 pH Units (7.32-7.45) 01/15/18 15:59 ABG pCO2 46 mmHg (35-45) H 01/15/18 15:59 ABG pO2 79 mmHg (85-104) L 01/15/18 15:59 ABG O2 Saturation 96 % (95-98) 01/15/18 15:59 PT/INR, D-dimer PT 17.8 Seconds (9.4-12.1) H 01/15/18 09:11 Consult Discharge Plan - Plan Instructions: Cellulitis (DC), Tomlinson Catheter Placement and Care (DC) Additional Instructions: 1. Please follow up with your primary care physician within one week. 2. Please continue all of your home medications as prescribed. 3. Please take your steroids and antibiotics as prescribed. Continue your IV vancomycin every 12 hours for a total of 3 more weeks. Taper your steroids as follows: Take 30mg for three days follow by 20mg for three days follow by 10mg for three days. 4. Please follow up with infectious disease 2 weeks after discharge. Please follow up with your urologist as well within 2 to 3 weeks. 5. Please wear your home oxygen at all times. 6. Please return to the hospital for new or worsening symptoms. Referrals: [facility] [place] [Provider Group] Bulmaro Negro MD [Primary Care Provider] - 01/25/18 1:30 pm Jovani Goldberg MD [Partnered Physician] - Prescriptions: HYDROcodone/Acet 5/325 mg [[place] 5-325 mg] 1 tab PO Q6HR PRN 7 Days #28 tablet PRN Reason: Moderate Pain Omeprazole [PriLOSEC] 40 mg PO BID #60 cap predniSONE [PredniSONE] 10 mg PO DAILY #18 tablet
[2018-01-25] MEDS: Carbidopa/Levodopa 25/100 TABLET PO SCH (20:31)
[2018-01-26 03:58] LABS: Basophils % 0.2 %; Eosinophils # 0.2 K/mcL (0.0-0.6); Eosinophils % 1.2 %; Hemoglobin 10.5 g/dL (12.9-16.9); Immature Granulocytes % 0.6 % (0-4); Lymphocytes # 1.8 K/mcL (0.6-4.6); Lymphocytes % 11.3 %; Mean Corpuscular HGB Conc 30.9 g/dL (31.6-35.5); Mean Corpuscular Hemoglobin 28.4 pg (28.0-33.3); Mean Corpuscular Volume 91.9 fL (83.0-100.0); Mean Platelet Volume 10.8 fL (9.4-12.4); Monocytes # 1.1 K/mcL (0.0-1.3); Monocytes % 7.2 %; Neutrophils # 12.4 K/mcL (1.6-8.9); Platelet Count 305 K/mcL (140-400); Red Cell Distribution Width 13.7 % (11.5-14.5); Segmented Neutrophils % 79.5 %
[2018-01-26] MEDS: Ipratropium/Albuterol Neb 3 ML IH SCH ×6 (04:17→23:38)
[2018-01-26 04:54] LABS: BUN/Creatinine Ratio 20 (6-26); Blood Urea Nitrogen 19 mg/dL (8-23); Calcium 8.4 mg/dL (8.6-10.3); Carbon Dioxide 35 mEq/L (23-29); Chloride 96 mEq/L (98-107); Glucose 180 mg/dL (70-105); Osmolality,Calculated 293 (280-300); Potassium 3.4 mEq/L (3.5-5.1); Sodium 138 mEq/L (136-145); eGFR For African Americans > 60 (> 60); eGFR For Non-African Americans > 60 (> 60)
--- NOTE | 2018-01-26 07:33 | Infectious Disease Progress No ---
Date of Encounter: 01/26/18 Time of Encounter: 07:15 - Assessment and Plan (1) Bacteremia Current Visit: Yes Status: Acute MRSA Bacteremia Complicated due to presence of bilateral prosthetic joints Source currently unclear Suspect skin source of bacteremia that then passed through the urine causing MRSA in urine, though can't rule out UTI as source Left lower extremity warmth and erythema suggestive of cellulitis or recent cellulitis No stigmata of IE appreciated no tenderness in any joints besides his chronic hip pain Blood cultures on 01/15: 2 positive for MRSA Blood cultures on 01/16: 12/25 negative TTE performed on 01/16: EF 60-65% with mild diastolic dysfunction, no vegetation seen One major and one minor criteria present PICC line in place in right arm Recommend MERLINE for further visualization, per guidelines, but given lower esophageal mass MERLINE can be performed later Continue vancomycin for at least 4 weeks from time of negative blood culture for complicated bacteremia (01/16) Will hold on rifampin given patient is also on Xarelto, the current risk of thrombus is greater than the need for rifampin Recommend labs tomorrow if patient still here for evaluation of current treatment regimen and possible side effects He will require weekly labs: CBC, BMP, Vanc trough, ESR/CRP Follow up with ID 2 weeks post discharge (2) Sepsis Current Visit: Yes Status: Resolved Present upon admission Now resolved with 1 SIRS criteria present - Leukocytosis MRSA bacteremia and MRSA UTI/Enterococcus UTI Patient has been receiving steroids, possibly contributory to WBC Qualifiers: Sepsis type: sepsis due to unspecified organism Qualified Code(s): A41.9 - Sepsis, unspecified organism (3) Esophageal mass Current Visit: Yes Status: Acute Patient underwent 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 Biopsies were obtained Oncology was consulted Continued plan per oncology and primary team (4) Knee joint replacement status Current Visit: Yes Status: Acute Presence of bilateral knee replacements complicates MRSA bacteremia No erythema, warmth, or tenderness present in bilateral knees Will not give rifampin as patient is also on Xarelto Qualifiers: Laterality: bilateral Qualified Code(s): Z96.653 - Presence of artificial knee joint, bilateral (5) Venous stasis Current Visit: Yes Status: Acute Patient has venous stasis with chronic skin changes present on bilateral lower extremities Some evidence of scabs on lower extremities could be a nidus of MRSA entrance (6) Chronic indwelling Adame catheter Current Visit: Yes Status: Acute Patient has history of UTIs Presented with MRSA and enterococcus UTI Plan as above - Subjective Interval history: Patient reports doing well today. He has no concerns/complaints. He denies having any fever or chills, he denies nausea, he denies lightheadedness, weakness, dyspnea, or chest pain. He had an endoscopy performed that did show an esophageal mass. He was seen by oncology and it appears that final pathology and staging will be performed prior to undergoing therapy. Vitals have been stable, patient has been afebrile, and WBC is slightly elevated today, but renal function is unchanged. Infect Dis PN-Objective Data - Labs CBC & Chem 7: 01/26/18 02:52 01/26/18 02:52 Labs: Laboratory Results - last 24 hr 01/25/18 01/25/18 01/25/18 11:03 16:32 17:58 WBC RBC Hgb Hct MCV MCH MCHC RDW Plt Count MPV Immature Gran % Seg Neutrophils % Lymphocytes % Monocytes % Eosinophils % Basophils % Neutrophils # Lymphocytes # Monocytes # Eosinophils # Basophils # Sodium Potassium Chloride Carbon Dioxide BUN Creatinine Est GFR ( Amer) Est GFR (Non-Af Amer) BUN/Creatinine Ratio Glucose POC Glucose 221 H 221 H Calculated Osmolality Calcium Vancomycin Trough 14.9 01/25/18 01/26/18 01/26/18 20:27 02:52 02:52 WBC 15.6 H RBC 3.70 L Hgb 10.5 L Hct 34.0 L MCV 91.9 MCH 28.4 MCHC 30.9 L RDW 13.7 Plt Count 305 MPV 10.8 Immature Gran % 0.6 Seg Neutrophils % 79.5 Lymphocytes % 11.3 Monocytes % 7.2 Eosinophils % 1.2 Basophils % 0.2 Neutrophils # 12.4 H Lymphocytes # 1.8 Monocytes # 1.1 Eosinophils # 0.2 Basophils # 0.0 Sodium 138 Potassium 3.4 L Chloride 96 L Carbon Dioxide 35 H BUN 19 Creatinine 0.95 Est GFR ( Amer) > 60 Est GFR (Non-Af Amer) > 60 BUN/Creatinine Ratio 20 Glucose 180 H POC Glucose 270 H Calculated Osmolality 293 Calcium 8.4 L Vancomycin Trough Cultures: Cultures 01/16/18 06:53 Blood Culture - Final Peripheral Venipuncture No growth. 01/16/18 06:53 Blood Culture - Final Peripheral Venipuncture No growth. Exam - Constitutional Vitals: Temp Pulse Resp BP Pulse Ox 97.9 F 80 16 129/74 93 01/26/18 05:16 01/26/18 05:16 01/26/18 05:16 01/26/18 05:16 01/26/18 05:16 - Additional findings Additional findings: General: Cooperative, pleasant, no acute distress, alert and oriented 3, answers questions appropriately HEENT: Normocephalic, atraumatic, neck supple, trachea midline, Conjunctiva pink , sclera anicteric, oral mucosa moist, no conjunctival hemorrhages noted Respiratory: No accessory muscle usage, bibasilar rales on auscultation Cardiovascular: Regular rate and rhythm, S1 and S2 present, no murmurs/rubs/ gallops/clicks appreciated GI/abdominal: Nondistended, nontender, soft, normal bowel sounds, no peritoneal signs Extremities: No calf tenderness, chronic darkening of skin from venous stasis in bilateral lower extremities, no pedal edema appreciated on patient right, 1 + pedal edema on patient left, increased diameter of left lower extremity ( chronic), no asymmetric warmth in LE today, no stigmata of endocarditis, no tenderness elicited in any joints aside from right hip (chronic), no swelling, erythema, or warmth noted in any joints or in spine Neurological: Alert and oriented 3, no facial droop, no focal deficits Consult Discharge Plan - Plan Instructions: Cellulitis (DC), Adame Catheter Placement and Care (DC) Additional Instructions: 1. Please follow up with your primary care physician within one week. 2. Please continue all of your home medications as prescribed. 3. Please take your steroids and antibiotics as prescribed. Continue your IV vancomycin every 12 hours for a total of 3 more weeks. Taper your steroids as follows: Take 30mg for three days follow by 20mg for three days follow by 10mg for three days. 4. Please follow up with infectious disease 2 weeks after discharge. Please follow up with your urologist as well within 2 to 3 weeks. 5. Please wear your home oxygen at all times. 6. Please return to the hospital for new or worsening symptoms. Referrals: [facility] [place] [Provider Group] Bulmaro Negro MD [Primary Care Provider] - 01/25/18 1:30 pm Jovani Goldberg MD [Partnered Physician] - Prescriptions: HYDROcodone/Acet 5/325 mg [[place] 5-325 mg] 1 tab PO Q6HR PRN 7 Days #28 tablet PRN Reason: Moderate Pain Omeprazole [PriLOSEC] 40 mg PO BID #60 cap predniSONE [PredniSONE] 10 mg PO DAILY #18 tablet - Attending Attestation I examined this patient and my medical decision-making was reviewed with the Resident Physician. I agree with the documented findings, disposition and treatment plan as described except to the extent set forth below.
[2018-01-26] MEDS: predniSONE 10 MG TABLET PO SCH (07:55)
[2018-01-26] MEDS: Lisinopril 20 MG TABLET PO SCH (07:55)
[2018-01-26] MEDS: Insulin LISPRO 300 UNITS/3 ML VIAL SQ SCH ×4 (07:56→20:17)
[2018-01-26] MEDS: Furosemide 40 MG TABLET PO SCH ×2 (07:56→17:17)
[2018-01-26] MEDS: Cholecalciferol (D-3) 1,000 UNIT TABLET PO SCH (07:56)
[2018-01-26] MEDS: *HR* Rivaroxaban 10 MG TABLET PO SCH (07:56)
--- NOTE | 2018-01-26 13:08 | Internal Med Progress Note ---
Date of Encounter: 01/26/18 Time of Encounter: 14:52 - Assessment and plan (1) A-fib Current Visit: Yes Status: Chronic Assessment and plan: Rate controlled.Remains on Xarelto. Qualifiers: Atrial fibrillation type: chronic Qualified Code(s): I48.2 - Chronic atrial fibrillation (2) Abnormal CT of the abdomen Current Visit: Yes Status: Acute Assessment and plan: CT abdomen on 01/15/2018 report reads suspected wall thickening near the gastroesophageal junction. While this appearance could be seen with esophagitis (especially given the presence of a small sliding hiatal hernia), there are new abnormal bilateral paraesophageal and retrocrural lymph nodes suspicious for metastatic disease. Recommend gastroenterology evaluation with consideration for endoscopy. GI is consulted. EGD performed. Per report, EGD findings included Fong's esophagus. On report, a large, ulcerative mass was found in the lower 3rd of the esophagus. Oncology was consulted. Await pathology report (3) Cellulitis of both lower extremities Current Visit: Yes Status: Acute Assessment and plan: Appear to be slowly improving. Has significant venous stasis bilaterally. Continue IV abx. (4) Chronic indwelling Adame catheter Current Visit: Yes Status: Acute Assessment and plan: chronic, stable (5) COPD (chronic obstructive pulmonary disease) Current Visit: Yes Status: Chronic Assessment and plan: acute exacerbation on admission with requirement for O2 Now resolved Start tapering steroids, continue duonebs prn Qualifiers: COPD type: unspecified COPD Qualified Code(s): J44.9 - Chronic obstructive pulmonary disease, unspecified (6) Diabetes mellitus Current Visit: Yes Status: Chronic Assessment and plan: Currently on accuchecks and coverage. Qualifiers: Diabetes mellitus type: type 2 Diabetes mellitus complication status: with hyperglycemia Diabetes mellitus retirement insulin use: without retirement use Qualified Code(s): E11.65 - Type 2 diabetes mellitus with hyperglycemia (7) Esophageal mass Current Visit: Yes Status: Acute Assessment and plan: as in abnormal abdomen CT (8) GERD (gastroesophageal reflux disease) Current Visit: Yes Status: Chronic Assessment and plan: continue PPI Qualifiers: Esophagitis presence: with esophagitis Qualified Code(s): K21.0 - Gastro- esophageal reflux disease with esophagitis (9) Hypertension Current Visit: Yes Status: Chronic Assessment and plan: Controlled at this time. Continue current medications. Qualifiers: Hypertension type: essential hypertension Qualified Code(s): I10 - Essential (primary) hypertension (10) MRSA bacteremia Current Visit: Yes Status: Resolved Assessment and plan: Patient afebrile and in no acute distress. Blood cultures positive for MRSA x 2 on 01/15/18. Urine culture positive for MRSA and Enterococcus. WBC increase to 16.7 today. Currently on steroids. Repeat blood cx neg thus far. Echocardiogram no overt vegetation. PICC line placed in the right arm on . Continue IV Vancomycin Day 12 (11) Sepsis Current Visit: Yes Status: Resolved Assessment and plan: Sepsis secondary to MRSA bacteremia and MRSA AND ENTEROCOCCUS UTI The patient wants to go to an ECF, this requires precertification, of to discharge if placement is arranged Continue IV Vancomycin Day 12. 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 Lower extremity cellulitis vs. UTI. Recommend obtaining MERLINE for further visualization. Continue vancomycin for at least 4 weeks for complicated bacteremia. Will hold on rifampin given patient is also on Xarelto, the current risk of thrombus is greater than the need for rifampin. He will require weekly labs: BCB, BMP, Vanc trough, ESR/CRP Follow up with ID 2 weeks post discharge Qualifiers: Sepsis type: sepsis due to unspecified organism Qualified Code(s): A41.9 - Sepsis, unspecified organism (12) UTI (urinary tract infection) Current Visit: Yes Status: Resolved Assessment and plan: as above Qualifiers: Urinary tract infection type: catheter-associated UTI Indwelling urinary catheter type: indwelling urethral catheter Encounter type: initial encounter Qualified Code(s): T83.511A - Infection and inflammatory reaction due to indwelling urethral catheter, initial encounter; N39.0 - Urinary tract infection , site not specified; N39.0 - Urinary tract infection, site not specified - Subjective Interval history: Seen and evaluated at bedside Being managed for MRSA bacteremia and sepsis-source unclear-cellulitis/UTI ECHO TTE shows no vegetations He also had a new esophageal mass He has been on prednisone for the past 9 days-30mg He has no shortness of breath, chest pain, he denies new complains Patient will require vancomycin through 02/13 - Constitutional Vitals: Temp Pulse Resp BP Pulse Ox 97.9 F 70 16 123/73 99 01/26/18 11:06 01/26/18 11:06 01/26/18 11:06 01/26/18 11:06 01/26/18 11:06 General appearance: Present: A&O X 3, obese, answers questions appropriately - Head Head exam: Present: atraumatic, normocephalic - Eye Eye exam: Present: PERRL, conjuntiva pink, sclera anicteric Pupils: Present: PERRL - Neck Neck exam general surgery: Present: supple, trachea midline. Absent: lymphadenopathy - Respiratory Respiratory exam: Present: CTAB. Absent: accessory muscle use, rales, rhonchi, wheezes - Cardiovascular Cardiovascular exam: Present: RRR, +S1, +S2. Absent: diastolic murmur, gallop, rubs, systolic murmur - GI/Abdominal GI/Abdominal exam: Present: normal bowel sounds, soft, no peritoneal signs. Absent: distended, tenderness - Extremities Exam Extremities exam: Present: warm, radial pulses palpable and symmetrical. Absent : calf tenderness, cyanotic, pedal edema - Neurological Exam Neurological exam: Present: alert, CN II-XII intact, oriented X3, no focal deficits. Absent: pronater drift, facial droop, speech deficit - Skin Skin exam: Present: dry, intact Internal Medicine: Result - Labs CBC & Chem 7: 01/26/18 02:52 01/26/18 02:52 Labs: Short CBC 01/26/18 Range/Units 02:52 WBC 15.6 H (4.3-11.1) K/mcL Hgb 10.5 L (12.9-16.9) g/dL Hct 34.0 L (37.5-50.1) % Plt Count 305 (140-400) K/mcL Neutrophils # 12.4 H (1.6-8.9) K/mcL BMP 01/26/18 02:52 Sodium 138 Potassium 3.4 L Chloride 96 L Carbon Dioxide 35 H BUN 19 Creatinine 0.95 Glucose 180 H Calcium 8.4 L - ABG Interpretation ABG results: ABG ABG pH 7.41 pH Units (7.32-7.45) 01/15/18 15:59 ABG pCO2 46 mmHg (35-45) H 01/15/18 15:59 ABG pO2 79 mmHg (85-104) L 01/15/18 15:59 ABG O2 Saturation 96 % (95-98) 01/15/18 15:59 PT/INR, D-dimer PT 17.8 Seconds (9.4-12.1) H 01/15/18 09:11 Consult Discharge Plan - Plan Instructions: Cellulitis (DC), Adame Catheter Placement and Care (DC) Additional Instructions: 1. Please follow up with your primary care physician within one week. 2. Please continue all of your home medications as prescribed. 3. Please take your steroids and antibiotics as prescribed. Continue your IV vancomycin every 12 hours for a total of 3 more weeks. Taper your steroids as follows: Take 30mg for three days follow by 20mg for three days follow by 10mg for three days. 4. Please follow up with infectious disease 2 weeks after discharge. Please follow up with your urologist as well within 2 to 3 weeks. 5. Please wear your home oxygen at all times. 6. Please return to the hospital for new or worsening symptoms. Referrals: [facility] [place] [Provider Group] Bulmaro Negro MD [Primary Care Provider] - 01/25/18 1:30 pm Jovani Goldberg MD [Partnered Physician] - Prescriptions: HYDROcodone/Acet 5/325 mg [[place] 5-325 mg] 1 tab PO Q6HR PRN 7 Days #28 tablet PRN Reason: Moderate Pain Omeprazole [PriLOSEC] 40 mg PO BID #60 cap predniSONE [PredniSONE] 10 mg PO DAILY #18 tablet
[2018-01-26] MEDS: Carbidopa/Levodopa 25/100 TABLET PO SCH (20:13)
[2018-01-27] MEDS: Ipratropium/Albuterol Neb 3 ML IH SCH ×6 (03:47→23:24)
[2018-01-27 05:18] LABS: Basophils # 0.1 K/mcL (0.0-0.2); Basophils % 0.4 %; Eosinophils # 0.3 K/mcL (0.0-0.6); Eosinophils % 1.6 %; Hematocrit 35.9 % (37.5-50.1); Immature Granulocytes % 0.5 % (0-4); Lymphocytes % 12.8 %; Mean Corpuscular HGB Conc 30.6 g/dL (31.6-35.5); Mean Corpuscular Hemoglobin 28.5 pg (28.0-33.3); Mean Platelet Volume 10.5 fL (9.4-12.4); Monocytes # 1.1 K/mcL (0.0-1.3); Monocytes % 6.8 %; Neutrophils # 12.3 K/mcL (1.6-8.9); Platelet Count 282 K/mcL (140-400); Red Blood Count 3.86 M/mcL (4.19-5.50); Segmented Neutrophils % 77.9 %
[2018-01-27 05:23] LABS: BUN/Creatinine Ratio 19 (6-26); Blood Urea Nitrogen 18 mg/dL (8-23); Calcium 8.4 mg/dL (8.6-10.3); Carbon Dioxide 35 mEq/L (23-29); Chloride 97 mEq/L (98-107); Glucose 147 mg/dL (70-105); Osmolality,Calculated 289 (280-300); Potassium 3.4 mEq/L (3.5-5.1); Sodium 137 mEq/L (136-145); eGFR For African Americans > 60 (> 60); eGFR For Non-African Americans > 60 (> 60)
[2018-01-27] MEDS: predniSONE 20 MG TABLET PO SCH (08:20)
[2018-01-27] MEDS: Insulin LISPRO 300 UNITS/3 ML VIAL SQ SCH ×4 (08:20→21:26)
[2018-01-27] MEDS: *HR* Rivaroxaban 10 MG TABLET PO SCH (08:21)
[2018-01-27] MEDS: Cholecalciferol (D-3) 1,000 UNIT TABLET PO SCH (08:21)
[2018-01-27] MEDS: Lisinopril 20 MG TABLET PO SCH (08:21)
[2018-01-27] MEDS: Furosemide 40 MG TABLET PO SCH ×2 (08:21→16:36)
--- NOTE | 2018-01-27 10:21 | Infectious Disease Progress No ---
Date of Encounter: 01/27/18 Time of Encounter: 08:25 - Assessment and Plan (1) Bacteremia Current Visit: Yes Status: Acute MRSA Bacteremia Complicated due to presence of bilateral prosthetic joints Source currently unclear Suspect skin source of bacteremia that then passed through the urine causing MRSA in urine, though can't rule out UTI as source Left lower extremity warmth prior to antibiotics is suggestive of cellulitis or recent cellulitis No stigmata of IE appreciated no tenderness in any joints besides his chronic hip pain Blood cultures on 01/15: 2 positive for MRSA Blood cultures on 01/16: 12/25 negative TTE performed on 01/16: EF 60-65% with mild diastolic dysfunction, no vegetation seen One major and one minor criteria present PICC line in place in right arm Recommend MERLINE for further visualization, per guidelines, but given lower esophageal mass MERLINE can be performed later Continue vancomycin for at least 4 weeks from time of negative blood culture for complicated bacteremia (01/16) Will hold on rifampin given patient is also on Xarelto, the current risk of thrombus is greater than the need for rifampin Recommend labs tomorrow if patient still here for evaluation of current treatment regimen and possible side effects He will require weekly labs: CBC, BMP, Vanc trough, ESR/CRP Follow up with ID 2 weeks post discharge (2) Sepsis Current Visit: Yes Status: Resolved Present upon admission Now resolved with 1 SIRS criteria present - Leukocytosis MRSA bacteremia and MRSA UTI/Enterococcus UTI Patient has been receiving steroids, possibly contributory to WBC Qualifiers: Sepsis type: sepsis due to unspecified organism Qualified Code(s): A41.9 - Sepsis, unspecified organism (3) Esophageal mass Current Visit: Yes Status: Acute Patient underwent 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 Biopsies were obtained Oncology was consulted Continued plan per oncology and primary team (4) Knee joint replacement status Current Visit: Yes Status: Acute Presence of bilateral knee replacements complicates MRSA bacteremia No erythema, warmth, or tenderness present in bilateral knees Will not give rifampin as patient is also on Xarelto Qualifiers: Laterality: bilateral Qualified Code(s): Z96.653 - Presence of artificial knee joint, bilateral (5) Venous stasis Current Visit: Yes Status: Acute Patient has venous stasis with chronic skin changes present on bilateral lower extremities Some evidence of scabs on lower extremities could be a nidus of MRSA entrance (6) Chronic indwelling Adame catheter Current Visit: Yes Status: Acute Patient has history of UTIs Presented with MRSA and enterococcus UTI Plan as above (7) UTI (urinary tract infection) Current Visit: Yes Status: Resolved Catheter associated UTI Urine culture positive for MRSA and enterococcus Both organisms show susceptibility to vancomycin Patient has received 3 days of cefepime Patient has received one day ceftriaxone Qualifiers: Urinary tract infection type: catheter-associated UTI Indwelling urinary catheter type: indwelling urethral catheter Encounter type: initial encounter Qualified Code(s): T83.511A - Infection and inflammatory reaction due to indwelling urethral catheter, initial encounter; N39.0 - Urinary tract infection , site not specified; N39.0 - Urinary tract infection, site not specified - Subjective Interval history: Patient doing well today, without new concerns/complaints. He reports having continued chronic pain in his hip, but otherwise doing well. He denies having fevers, chills, nausea, abdominal pain, diarrhea, constipation, lightheadedness , or pain in any other joints. He had an endoscopy performed on 01/21 that did show an esophageal mass. He was seen by oncology and it appears that final pathology and staging will be performed prior to undergoing therapy. Vitals have been stable, patient has been afebrile, and WBC is slightly elevated today, but renal function is unchanged. Infect Dis PN-Objective Data - Labs CBC & Chem 7: 01/27/18 04:00 01/27/18 04:00 Labs: Laboratory Results - last 24 hr 01/24/18 01/24/18 01/26/18 11:18 16:28 11:10 WBC RBC Hgb Hct MCV MCH MCHC RDW Plt Count MPV Immature Gran % Seg Neutrophils % Lymphocytes % Monocytes % Eosinophils % Basophils % Neutrophils # Lymphocytes # Monocytes # Eosinophils # Basophils # Sodium Potassium Chloride Carbon Dioxide BUN Creatinine Est GFR ( Amer) Est GFR (Non-Af Amer) BUN/Creatinine Ratio Glucose POC Glucose 238 H 268 H 209 H Calculated Osmolality Calcium 01/26/18 01/27/18 01/27/18 16:24 04:00 04:00 WBC 15.9 H RBC 3.86 L Hgb 11.0 L Hct 35.9 L MCV 93.0 MCH 28.5 MCHC 30.6 L RDW 14.0 Plt Count 282 MPV 10.5 Immature Gran % 0.5 Seg Neutrophils % 77.9 Lymphocytes % 12.8 Monocytes % 6.8 Eosinophils % 1.6 Basophils % 0.4 Neutrophils # 12.3 H Lymphocytes # 2.0 Monocytes # 1.1 Eosinophils # 0.3 Basophils # 0.1 Sodium 137 Potassium 3.4 L Chloride 97 L Carbon Dioxide 35 H BUN 18 Creatinine 0.93 Est GFR ( Amer) > 60 Est GFR (Non-Af Amer) > 60 BUN/Creatinine Ratio 19 Glucose 147 H POC Glucose 332 H Calculated Osmolality 289 Calcium 8.4 L 01/27/18 07:44 WBC RBC Hgb Hct MCV MCH MCHC RDW Plt Count MPV Immature Gran % Seg Neutrophils % Lymphocytes % Monocytes % Eosinophils % Basophils % Neutrophils # Lymphocytes # Monocytes # Eosinophils # Basophils # Sodium Potassium Chloride Carbon Dioxide BUN Creatinine Est GFR ( Amer) Est GFR (Non-Af Amer) BUN/Creatinine Ratio Glucose POC Glucose 143 H Calculated Osmolality Calcium Cultures: Cultures 01/16/18 06:53 Blood Culture - Final Peripheral Venipuncture No growth. 01/16/18 06:53 Blood Culture - Final Peripheral Venipuncture No growth. Exam - Constitutional Vitals: Temp Pulse Resp BP Pulse Ox 99.0 F 84 19 147/89 93 01/27/18 07:49 01/27/18 07:49 01/27/18 07:49 01/27/18 07:49 01/27/18 08:20 - Additional findings Additional findings: General: Cooperative, pleasant, no acute distress, alert and oriented 3, answers questions appropriately HEENT: Normocephalic, atraumatic, neck supple, trachea midline, Conjunctiva pink , sclera anicteric, oral mucosa moist Respiratory: No accessory muscle usage, CTA b/l Cardiovascular: Regular rate and rhythm, S1 and S2 present, no murmurs/rubs/ gallops/clicks appreciated GI/abdominal: Nondistended, nontender, soft, normal bowel sounds, no peritoneal signs Extremities: No calf tenderness, chronic darkening of skin from venous stasis in bilateral lower extremities, no pedal edema appreciated on patient right, 1 + pedal edema on patient left, increased diameter of left lower extremity ( chronic), no asymmetric warmth in LE today Neurological: Alert and oriented 3, no facial droop, no focal deficits Consult Discharge Plan - Plan Instructions: Cellulitis (DC), Adame Catheter Placement and Care (DC) Additional Instructions: 1. Please follow up with your primary care physician within one week. 2. Please continue all of your home medications as prescribed. 3. Please take your steroids and antibiotics as prescribed. Continue your IV vancomycin every 12 hours for a total of 3 more weeks. Taper your steroids as follows: Take 30mg for three days follow by 20mg for three days follow by 10mg for three days. 4. Please follow up with infectious disease 2 weeks after discharge. Please follow up with your urologist as well within 2 to 3 weeks. 5. Please wear your home oxygen at all times. 6. Please return to the hospital for new or worsening symptoms. Referrals: [facility] [place] [Provider Group] Bulmaro Negro MD [Primary Care Provider] - 01/25/18 1:30 pm Jovani Goldberg MD [Partnered Physician] - Prescriptions: HYDROcodone/Acet 5/325 mg [[place] 5-325 mg] 1 tab PO Q6HR PRN 7 Days #28 tablet PRN Reason: Moderate Pain Omeprazole [PriLOSEC] 40 mg PO BID #60 cap predniSONE [PredniSONE] 10 mg PO DAILY #18 tablet - Attending Attestation I examined this patient and my medical decision-making was reviewed with the Resident Physician. I agree with the documented findings, disposition and treatment plan as described except to the extent set forth below.
--- NOTE | 2018-01-27 10:45 | Internal Med Progress Note ---
Date of Encounter: 01/27/18 Time of Encounter: 10:44 - Assessment and plan (1) A-fib Current Visit: Yes Status: Chronic Assessment and plan: Rate controlled.Remains on Xarelto. Continue the same Qualifiers: Atrial fibrillation type: chronic Qualified Code(s): I48.2 - Chronic atrial fibrillation (2) Abnormal CT of the abdomen Current Visit: Yes Status: Acute Assessment and plan: CT abdomen on 01/15/2018 report reads suspected wall thickening near the gastroesophageal junction. While this appearance could be seen with esophagitis (especially given the presence of a small sliding hiatal hernia), there are new abnormal bilateral paraesophageal and retrocrural lymph nodes suspicious for metastatic disease. Recommend gastroenterology evaluation with consideration for endoscopy. GI is consulted. EGD performed. Per report, EGD findings included Fong's esophagus. On report, a large, ulcerative mass was found in the lower 3rd of the esophagus. Oncology was consulted. Await pathology report, and plans for chemotherapy or management until biopsy results finalized. (3) Cellulitis of both lower extremities Current Visit: Yes Status: Acute Assessment and plan: Has significant venous stasis bilaterally. Continue IV abx. (4) Chronic indwelling Adame catheter Current Visit: Yes Status: Chronic Assessment and plan: chronic, stable (5) COPD (chronic obstructive pulmonary disease) Current Visit: Yes Status: Chronic Assessment and plan: acute exacerbation on admission with requirement for O2 Now resolved Continue tapering steroids, continue duonebs prn Qualifiers: COPD type: unspecified COPD Qualified Code(s): J44.9 - Chronic obstructive pulmonary disease, unspecified (6) Diabetes mellitus Current Visit: Yes Status: Chronic Assessment and plan: Currently on accuchecks and coverage. Qualifiers: Diabetes mellitus type: type 2 Diabetes mellitus complication status: with hyperglycemia Diabetes mellitus watermaster insulin use: without watermaster use Qualified Code(s): E11.65 - Type 2 diabetes mellitus with hyperglycemia (7) Esophageal mass Current Visit: Yes Status: Acute Assessment and plan: as in abnormal abdomen CT (8) GERD (gastroesophageal reflux disease) Current Visit: Yes Status: Chronic Assessment and plan: Fong's esophagitis present per EGD continue PPI Qualifiers: Esophagitis presence: with esophagitis Qualified Code(s): K21.0 - Gastro- esophageal reflux disease with esophagitis (9) Hypertension Current Visit: Yes Status: Chronic Assessment and plan: Controlled at this time. Continue current medications. Qualifiers: Hypertension type: essential hypertension Qualified Code(s): I10 - Essential (primary) hypertension (10) MRSA bacteremia Current Visit: Yes Status: Resolved Assessment and plan: Patient afebrile and in no acute distress. Blood cultures positive for MRSA x 2 on 01/15/18. Urine culture positive for MRSA and Enterococcus. Repeat blood cx neg thus far. Echocardiogram no overt vegetation. PICC line placed in the right arm on 01/20/18. Continue IV Vancomycin Day 13 Leukocytosis is persistent due to steroids (11) Sepsis Current Visit: Yes Status: Resolved Assessment and plan: Sepsis secondary to MRSA bacteremia and MRSA AND ENTEROCOCCUS UTI The patient wants to go to an ECF, this requires precertification, of to discharge if placement is arranged Continue IV Vancomycin Day 13. 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 Lower extremity cellulitis vs. UTI. Recommend obtaining MERLINE for further visualization. Continue vancomycin for at least 4 weeks for complicated bacteremia. Will hold on rifampin given patient is also on Xarelto, the current risk of thrombus is greater than the need for rifampin. He will require weekly labs: BCB, BMP, Vanc trough, ESR/CRP MERLINE cannot be done in this visit due to the presence of an esophageal mass Follow up with ID 2 weeks post discharge Qualifiers: Sepsis type: sepsis due to unspecified organism Qualified Code(s): A41.9 - Sepsis, unspecified organism (12) UTI (urinary tract infection) Current Visit: Yes Status: Resolved Assessment and plan: as above Qualifiers: Urinary tract infection type: catheter-associated UTI Indwelling urinary catheter type: indwelling urethral catheter Encounter type: initial encounter Qualified Code(s): T83.511A - Infection and inflammatory reaction due to indwelling urethral catheter, initial encounter; N39.0 - Urinary tract infection , site not specified; N39.0 - Urinary tract infection, site not specified - Subjective Interval history: Seen and evaluated at bedside Being managed for MRSA bacteremia and sepsis-source unclear-cellulitis/UTI ECHO TTE shows no vegetations He also had a new esophageal mass He has been on prednisone for the past 9 days-30mg, changed to 20mg 01/26, this probably explains his leukocytosis He is awaiting placement He has no shortness of breath, chest pain, he denies new complains Patient will require vancomycin through 02/13 I/O -19L - Constitutional Vitals: Temp Pulse Resp BP Pulse Ox 99.0 F 84 19 147/89 93 01/27/18 07:49 01/27/18 07:49 01/27/18 07:49 01/27/18 07:49 01/27/18 08:20 General appearance: Present: A&O X 3, pleasant, obese, answers questions appropriately - Head Head exam: Present: atraumatic, normocephalic - Eye Eye exam: Present: PERRL, conjuntiva pink, sclera anicteric Pupils: Present: PERRL - Neck Neck exam general surgery: Present: supple, trachea midline. Absent: lymphadenopathy - Respiratory Respiratory exam: Present: CTAB. Absent: accessory muscle use, rales, rhonchi, wheezes - Cardiovascular Cardiovascular exam: Present: RRR, +S1, +S2. Absent: diastolic murmur, gallop, rubs, systolic murmur - GI/Abdominal GI/Abdominal exam: Present: normal bowel sounds, soft, no peritoneal signs. Absent: distended, tenderness - Extremities Exam Additional comments: chronic venous stasis changes - Neurological Exam Neurological exam: Present: alert, CN II-XII intact, oriented X3, no focal deficits. Absent: pronater drift, facial droop, speech deficit - Skin Skin exam: Present: dry, intact Internal Medicine: Result - Labs CBC & Chem 7: 01/27/18 04:00 01/27/18 04:00 Labs: Short CBC 01/27/18 Range/Units 04:00 WBC 15.9 H (4.3-11.1) K/mcL Hgb 11.0 L (12.9-16.9) g/dL Hct 35.9 L (37.5-50.1) % Plt Count 282 (140-400) K/mcL Neutrophils # 12.3 H (1.6-8.9) K/mcL BMP 01/27/18 04:00 Sodium 137 Potassium 3.4 L Chloride 97 L Carbon Dioxide 35 H BUN 18 Creatinine 0.93 Glucose 147 H Calcium 8.4 L - ABG Interpretation ABG results: ABG ABG pH 7.41 pH Units (7.32-7.45) 01/15/18 15:59 ABG pCO2 46 mmHg (35-45) H 01/15/18 15:59 ABG pO2 79 mmHg (85-104) L 01/15/18 15:59 ABG O2 Saturation 96 % (95-98) 01/15/18 15:59 PT/INR, D-dimer PT 17.8 Seconds (9.4-12.1) H 01/15/18 09:11 Consult Discharge Plan - Plan Instructions: Cellulitis (DC), Adame Catheter Placement and Care (DC) Additional Instructions: 1. Please follow up with your primary care physician within one week. 2. Please continue all of your home medications as prescribed. 3. Please take your steroids and antibiotics as prescribed. Continue your IV vancomycin every 12 hours for a total of 3 more weeks. Taper your steroids as follows: Take 30mg for three days follow by 20mg for three days follow by 10mg for three days. 4. Please follow up with infectious disease 2 weeks after discharge. Please follow up with your urologist as well within 2 to 3 weeks. 5. Please wear your home oxygen at all times. 6. Please return to the hospital for new or worsening symptoms. Referrals: [facility] [place] [Provider Group] Bulmaro Negro MD [Primary Care Provider] - 01/25/18 1:30 pm Jovani Goldberg MD [Partnered Physician] - Prescriptions: HYDROcodone/Acet 5/325 mg [[place] 5-325 mg] 1 tab PO Q6HR PRN 7 Days #28 tablet PRN Reason: Moderate Pain Omeprazole [PriLOSEC] 40 mg PO BID #60 cap predniSONE [PredniSONE] 10 mg PO DAILY #18 tablet
[2018-01-27] MEDS: *HR* HYDROcodone/Acet 5/325 mg TABLET PO PRN (18:58)
[2018-01-27] MEDS: Carbidopa/Levodopa 25/100 TABLET PO SCH (21:26)
[2018-01-28] MEDS: Ipratropium/Albuterol Neb 3 ML IH SCH ×5 (03:24→19:33)
[2018-01-28 04:52] LABS: Basophils % 0.3 %; Eosinophils # 0.2 K/mcL (0.0-0.6); Eosinophils % 1.3 %; Hematocrit 34.4 % (37.5-50.1); Hemoglobin 10.7 g/dL (12.9-16.9); Immature Granulocytes % 0.6 % (0-4); Lymphocytes # 1.8 K/mcL (0.6-4.6); Lymphocytes % 12.1 %; Mean Corpuscular HGB Conc 31.1 g/dL (31.6-35.5); Mean Corpuscular Hemoglobin 28.5 pg (28.0-33.3); Mean Corpuscular Volume 91.7 fL (83.0-100.0); Mean Platelet Volume 10.5 fL (9.4-12.4); Monocytes # 1.1 K/mcL (0.0-1.3); Monocytes % 7.2 %; Neutrophils # 11.6 K/mcL (1.6-8.9); Platelet Count 271 K/mcL (140-400); Red Blood Count 3.75 M/mcL (4.19-5.50); Segmented Neutrophils % 78.5 %
[2018-01-28 05:15] LABS: BUN/Creatinine Ratio 18 (6-26); Blood Urea Nitrogen 18 mg/dL (8-23); Calcium 8.5 mg/dL (8.6-10.3); Carbon Dioxide 34 mEq/L (23-29); Chloride 99 mEq/L (98-107); Glucose 167 mg/dL (70-105); Osmolality,Calculated 294 (280-300); Potassium 3.5 mEq/L (3.5-5.1); Sodium 139 mEq/L (136-145); eGFR For African Americans > 60 (> 60); eGFR For Non-African Americans > 60 (> 60)
--- NOTE | 2018-01-28 07:38 | Infectious Disease Progress No ---
Date of Encounter: 01/28/18 Time of Encounter: 07:15 - Assessment and Plan (1) Bacteremia Current Visit: Yes Status: Acute MRSA Bacteremia Complicated due to presence of bilateral prosthetic joints Source currently unclear Suspect skin source of bacteremia that then passed through the urine causing MRSA in urine, though can't rule out UTI as source Left lower extremity warmth prior to antibiotics is suggestive of cellulitis No stigmata of IE appreciated no tenderness in any joints besides his chronic hip pain Blood cultures on 01/15: 2/ positive for MRSA Blood cultures on 01/16: 2 negative TTE performed on 01/16: EF 60-65% with mild diastolic dysfunction, no vegetation seen One major and one minor criteria present PICC line in place in right arm Recommend MERLINE for further visualization, per guidelines, but given lower esophageal mass MERLINE can be performed later Continue vancomycin for at least 4 weeks from time of negative blood culture for complicated bacteremia (01/16) IV Vancomycin through 02/13/18 Will hold on rifampin given patient is also on Xarelto, the current risk of thrombus is greater than the need for rifampin Recommend labs tomorrow if patient still here for evaluation of current treatment regimen and possible side effects He will require weekly labs: CBC, BMP, Vanc trough, ESR/CRP Follow up with ID 2 weeks post discharge Infectious Disease will sign off (2) Sepsis Current Visit: Yes Status: Resolved Present upon admission Now resolved with 1 SIRS criteria present - Leukocytosis MRSA bacteremia and MRSA UTI/Enterococcus UTI Patient has been receiving steroids, possibly contributory to WBC Qualifiers: Sepsis type: sepsis due to unspecified organism Qualified Code(s): A41.9 - Sepsis, unspecified organism (3) Esophageal mass Current Visit: Yes Status: Acute Patient underwent 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 Biopsies were obtained Oncology was consulted Continued plan per oncology and primary team (4) Knee joint replacement status Current Visit: Yes Status: Acute Presence of bilateral knee replacements complicates MRSA bacteremia No erythema, warmth, or tenderness present in bilateral knees Will not give rifampin as patient is also on Xarelto Qualifiers: Laterality: bilateral Qualified Code(s): Z96.653 - Presence of artificial knee joint, bilateral (5) Venous stasis Current Visit: Yes Status: Acute Patient has venous stasis with chronic skin changes present on bilateral lower extremities Some evidence of scabs on lower extremities could be a nidus of MRSA entrance (6) Chronic indwelling Adame catheter Current Visit: Yes Status: Chronic Patient has history of UTIs Presented with MRSA and enterococcus UTI Plan as above (7) UTI (urinary tract infection) Current Visit: Yes Status: Resolved Catheter associated UTI Urine culture positive for MRSA and enterococcus Both organisms show susceptibility to vancomycin Patient has received 3 days of cefepime Patient has received one day ceftriaxone Qualifiers: Urinary tract infection type: catheter-associated UTI Indwelling urinary catheter type: indwelling urethral catheter Encounter type: initial encounter Qualified Code(s): T83.511A - Infection and inflammatory reaction due to indwelling urethral catheter, initial encounter; N39.0 - Urinary tract infection , site not specified; N39.0 - Urinary tract infection, site not specified - Subjective Interval history: Patient reports feeling about the same as it was yesterday. He still endorses pain in his right hip. She does report having some mild dry and scratchy throat. Denies fever, chills, nausea, abdominal pain, diarrhea, constipation, lightheadedness, or weakness. He had an endoscopy performed on 01/21 that did show an esophageal mass. He was seen by oncology and it appears that final pathology and staging will be performed prior to undergoing therapy. Vitals have been stable, patient has been afebrile, and WBC is slightly elevated today (but continues on prednisone), but renal function is unchanged. Infect Dis PN-Objective Data - Labs CBC & Chem 7: 01/28/18 04:31 01/28/18 04:00 Labs: Laboratory Results - last 24 hr 01/26/18 01/27/18 01/27/18 20:16 07:44 11:29 WBC RBC Hgb Hct MCV MCH MCHC RDW Plt Count MPV Immature Gran % Seg Neutrophils % Lymphocytes % Monocytes % Eosinophils % Basophils % Neutrophils # Lymphocytes # Monocytes # Eosinophils # Basophils # Sodium Potassium Chloride Carbon Dioxide BUN Creatinine Est GFR ( Amer) Est GFR (Non-Af Amer) BUN/Creatinine Ratio Glucose POC Glucose 242 H 143 H 247 H Calculated Osmolality Calcium 01/27/18 01/28/18 01/28/18 16:17 04:00 04:31 WBC 14.8 H RBC 3.75 L Hgb 10.7 L Hct 34.4 L MCV 91.7 MCH 28.5 MCHC 31.1 L RDW 14.0 Plt Count 271 MPV 10.5 Immature Gran % 0.6 Seg Neutrophils % 78.5 Lymphocytes % 12.1 Monocytes % 7.2 Eosinophils % 1.3 Basophils % 0.3 Neutrophils # 11.6 H Lymphocytes # 1.8 Monocytes # 1.1 Eosinophils # 0.2 Basophils # 0.0 Sodium 139 Potassium 3.5 Chloride 99 Carbon Dioxide 34 H BUN 18 Creatinine 0.99 Est GFR ( Amer) > 60 Est GFR (Non-Af Amer) > 60 BUN/Creatinine Ratio 18 Glucose 167 H POC Glucose 237 H Calculated Osmolality 294 Calcium 8.5 L Cultures: Cultures 01/16/18 06:53 Blood Culture - Final Peripheral Venipuncture No growth. 01/16/18 06:53 Blood Culture - Final Peripheral Venipuncture No growth. Exam - Constitutional Vitals: Temp Pulse Resp BP Pulse Ox 98.4 F 63 16 139/76 96 01/28/18 03:25 01/28/18 03:25 01/28/18 03:25 01/28/18 03:25 01/28/18 03:25 - Additional findings Additional findings: General: Cooperative, pleasant, no acute distress, alert and oriented 3, answers questions appropriately HEENT: Normocephalic, atraumatic, neck supple, trachea midline, Conjunctiva pink , sclera anicteric, oral mucosa dry Respiratory: No accessory muscle usage, good air movement, clear to auscultation bilaterally, no wheezes/rhonchi/rales Cardiovascular: Regular rate and rhythm, S1 and S2 present, no murmurs/rubs/ gallops/clicks appreciated GI/abdominal: Nondistended, nontender, soft, normal bowel sounds, no peritoneal signs Extremities: No calf tenderness, chronic darkening of skin from venous stasis in bilateral lower extremities, no pedal edema appreciated on patient right, 1 + pedal edema on patient left, increased diameter of left lower extremity ( chronic), no asymmetric warmth in LE today Neurological: Alert and oriented 3, no facial droop, no focal deficits Consult Discharge Plan - Plan Instructions: Cellulitis (DC), Adame Catheter Placement and Care (DC) Additional Instructions: 1. Please follow up with your primary care physician within one week. 2. Please continue all of your home medications as prescribed. 3. Please take your steroids and antibiotics as prescribed. Continue your IV vancomycin every 12 hours for a total of 3 more weeks. Taper your steroids as follows: Take 30mg for three days follow by 20mg for three days follow by 10mg for three days. 4. Please follow up with infectious disease 2 weeks after discharge. Please follow up with your urologist as well within 2 to 3 weeks. 5. Please wear your home oxygen at all times. 6. Please return to the hospital for new or worsening symptoms. Referrals: [facility] [Provider Group] Bulmaro Negro MD [Primary Care Provider] - 01/25/18 1:30 pm Jovani Goldberg MD [Partnered Physician] - Prescriptions: HYDROcodone/Acet 5/325 mg [[place] 5-325 mg] 1 tab PO Q6HR PRN 7 Days #28 tablet PRN Reason: Moderate Pain Omeprazole [PriLOSEC] 40 mg PO BID #60 cap predniSONE [PredniSONE] 10 mg PO DAILY #18 tablet - Attending Attestation I examined this patient and my medical decision-making was reviewed with the Resident Physician. I agree with the documented findings, disposition and treatment plan as described except to the extent set forth below.
[2018-01-28] MEDS: Furosemide 40 MG TABLET PO SCH (09:10)
[2018-01-28] MEDS: *HR* Rivaroxaban 10 MG TABLET PO SCH (09:10)
[2018-01-28] MEDS: Lisinopril 20 MG TABLET PO SCH (09:11)
[2018-01-28] MEDS: Cholecalciferol (D-3) 1,000 UNIT TABLET PO SCH (09:11)
[2018-01-28] MEDS: predniSONE 20 MG TABLET PO SCH (09:11)
[2018-01-28] MEDS: Insulin LISPRO 300 UNITS/3 ML VIAL SQ SCH ×3 (09:13→18:25)
--- NOTE | 2018-01-28 12:21 | Internal Med Progress Note ---
Date of Encounter: 01/28/18 - Assessment and plan (1) A-fib Current Visit: Yes Status: Chronic Qualifiers: Atrial fibrillation type: chronic Qualified Code(s): I48.2 - Chronic atrial fibrillation (2) Abnormal CT of the abdomen Current Visit: Yes Status: Acute (3) Cellulitis of both lower extremities Current Visit: Yes Status: Acute (4) Chronic indwelling Adame catheter Current Visit: Yes Status: Chronic (5) COPD (chronic obstructive pulmonary disease) Current Visit: Yes Status: Chronic Qualifiers: COPD type: unspecified COPD Qualified Code(s): J44.9 - Chronic obstructive pulmonary disease, unspecified (6) Diabetes mellitus Current Visit: Yes Status: Chronic Qualifiers: Diabetes mellitus type: type 2 Diabetes mellitus complication status: with hyperglycemia Diabetes mellitus prison insulin use: without prison use Qualified Code(s): E11.65 - Type 2 diabetes mellitus with hyperglycemia (7) Esophageal mass Current Visit: Yes Status: Acute (8) GERD (gastroesophageal reflux disease) Current Visit: Yes Status: Chronic Qualifiers: Esophagitis presence: with esophagitis Qualified Code(s): K21.0 - Gastro- esophageal reflux disease with esophagitis (9) Hypertension Current Visit: Yes Status: Chronic Qualifiers: Hypertension type: essential hypertension Qualified Code(s): I10 - Essential (primary) hypertension (10) MRSA bacteremia Current Visit: Yes Status: Resolved (11) Sepsis Current Visit: Yes Status: Resolved Qualifiers: Sepsis type: sepsis due to unspecified organism Qualified Code(s): A41.9 - Sepsis, unspecified organism (12) UTI (urinary tract infection) Current Visit: Yes Status: Resolved Qualifiers: Urinary tract infection type: catheter-associated UTI Indwelling urinary catheter type: indwelling urethral catheter Encounter type: initial encounter Qualified Code(s): T83.511A - Infection and inflammatory reaction due to indwelling urethral catheter, initial encounter; N39.0 - Urinary tract infection , site not specified; N39.0 - Urinary tract infection, site not specified - Subjective Interval history: Seen and evaluated at bedside Being managed for MRSA bacteremia and sepsis-source unclear-cellulitis/UTI ECHO TTE shows no vegetations He also had a new esophageal mass He has been on prednisone for the past 9 days-30mg, changed to 20mg 01/26, this probably explains his leukocytosis He is awaiting placement He has no shortness of breath, chest pain, he denies new complains Patient will require vancomycin through 02/13 I/O -19L - Constitutional Vitals: Temp Pulse Resp BP Pulse Ox 97.8 F 73 19 98/66 95 01/28/18 11:27 01/28/18 11:27 01/28/18 11:31 01/28/18 11:27 01/28/18 11:31 General appearance: Present: A&O X 3, pleasant, obese, answers questions appropriately Internal Medicine: Result - Labs CBC & Chem 7: 01/28/18 04:31 01/28/18 04:00 Labs: Short CBC 01/28/18 Range/Units 04:31 WBC 14.8 H (4.3-11.1) K/mcL Hgb 10.7 L (12.9-16.9) g/dL Hct 34.4 L (37.5-50.1) % Plt Count 271 (140-400) K/mcL Neutrophils # 11.6 H (1.6-8.9) K/mcL BMP 01/28/18 04:00 Sodium 139 Potassium 3.5 Chloride 99 Carbon Dioxide 34 H BUN 18 Creatinine 0.99 Glucose 167 H Calcium 8.5 L - ABG Interpretation ABG results: ABG ABG pH 7.41 pH Units (7.32-7.45) 01/15/18 15:59 ABG pCO2 46 mmHg (35-45) H 01/15/18 15:59 ABG pO2 79 mmHg (85-104) L 01/15/18 15:59 ABG O2 Saturation 96 % (95-98) 01/15/18 15:59 PT/INR, D-dimer PT 17.8 Seconds (9.4-12.1) H 01/15/18 09:11 Consult Discharge Plan - Plan Instructions: Cellulitis (DC), Adame Catheter Placement and Care (DC) Additional Instructions: 1. Please follow up with your primary care physician within one week. 2. Please continue all of your home medications as prescribed. 3. Please take your steroids and antibiotics as prescribed. Continue your IV vancomycin every 12 hours for a total of 3 more weeks. Taper your steroids as follows: Take 30mg for three days follow by 20mg for three days follow by 10mg for three days. 4. Please follow up with infectious disease 2 weeks after discharge. Please follow up with your urologist as well within 2 to 3 weeks. 5. Please wear your home oxygen at all times. 6. Please return to the hospital for new or worsening symptoms. Referrals: [facility] [Provider Group] Bulmaro Negro MD [Primary Care Provider] - 01/25/18 1:30 pm Jovani Goldberg MD [Partnered Physician] - Prescriptions: HYDROcodone/Acet 5/325 mg [[place] 5-325 mg] 1 tab PO Q6HR PRN 7 Days #28 tablet PRN Reason: Moderate Pain Omeprazole [PriLOSEC] 40 mg PO BID #60 cap predniSONE [PredniSONE] 10 mg PO DAILY #18 tablet
--- NOTE | 2018-01-28 14:00 | Oncology Inp Progress Note ---
<Shayna Alva L - Last Filed: 01/28/18 15:51> Date of Encounter: 01/28/18 Time of Encounter: 12:30 (1) Esophageal mass Status: Acute Assessment and plan: Dr. 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 Due to the staining results for CK7 weakly positive in rare tumor cells and CK20 negative, the primary site of tumor origin cannot be determined with certainty. The stain is Synaptophysin positive, Chromogranin negative. LDH has been ordered. Have also obtained CT chest which shows prominent esophageal wall thickening spans approximately 9.4 cm of the lower mediastinum with surrounding adenopathy measuring up to 19 mm in the azygo-esophageal space. CT of the abdomen/pelvis did not show sign of abdominal metastatic disease but did show suspicious wall thickening arising from the left urinary bladder wall, urothelial enhancement, and adjacent stranding. May continue to monitor, patient was admitted with bacteremia secondary to MRSA/enterrococcus UTI. Further definitive treatment options to be explored following completion of PET scan, which may include combination of chemo/chemoradiation and surgical intervention. Patient has multiple comorbidities and is planned for SNF placement for IV ATB therapy and short term rehab. Highly encouraged participation with therapy team to regain strength. He is making strides since my visit with him last week which is encouraging. He is scheduled for PET scan in 1-2 weeks with a follow up with Dr. Hernandez shortly after, to assess headway on his functional status/recovery and to begin discussion on treatment options. Please refer to Dr. Lopez's attestation below for further details. Oncology: Subj Interval history: Mr. Jimenez is sitting in his chair, his is at bedside. They are awaiting placement into SNF for rehab with the hopes to soon return home once patient can regain adequate strength to do so. He denies pain, SOB, chest pain, nausea, vomiting, diarrhea or dysphagia. - Constitutional Vitals: Vital Signs Temp Pulse Resp BP Pulse Ox 01/28/18 11:31 19 95 01/28/18 11:27 97.8 F 73 19 98/66 95 01/28/18 08:31 98.0 F 72 20 135/82 92 01/28/18 07:48 16 96 01/28/18 03:25 98.4 F 63 16 139/76 96 01/27/18 23:51 98.0 F 56 16 128/73 96 01/27/18 23:25 18 94 01/27/18 21:20 98.6 F 81 16 112/76 94 01/27/18 19:44 18 95 01/27/18 16:06 98.4 F 72 18 121/84 93 01/27/18 15:56 18 95 Intake and Output 01/27/18 01/28/18 01/28/18 23:59 07:59 15:59 Intake Total 490 / 490 0 / 0 0 / 0 Output Total 1525 / 1525 500 / 500 350 / 350 Balance -1035 / -1035 -500 / -500 -350 / -350 Intake: IV Fluids 250 / 250 Vancocin 750 MG In 0.9 % Sodium 250 / 250 Chloride 250 ML @ 250 mls/hr IVPB Q12H [facility] Rx#:[id number] Oral 240 / 240 0 / 0 0 / 0 Output: Catheter 1525 / 1525 500 / 500 350 / 350 Other: Meal Dinner Percent of Meal Consumed 100% Weight 126.824 kg Blood Glucose* 217 242 Patient Weight 01/28/18 23:59 Weight 126.824 kg General appearance: cooperative, no acute distress, no febrile - Head Head exam: Present: atraumatic - ENT ENT exam: Present: mucous membranes dry - Respiratory Respiratory exam: Present: CTAB. Absent: respiratory distress - Cardiovascular Cardiovascular exam: Present: RRR, +S1, +S2 - GI/Abdominal GI/Abdominal exam: Present: normal bowel sounds, soft. Absent: tenderness - Extremities Exam Extremities exam: Absent: calf tenderness Additional comments: BLE edema with chronic skin changes secondary to chronic venous stasis dermatitis - Neurological Exam Neurological exam: Present: alert, oriented X3, no focal deficits, strengths equal and symetr throughout - Psychiatric Psychiatric exam: Present: normal affect, normal mood - Skin Skin exam: Present: normal color, warm Oncology: Obj Data - Labs CBC & Chem 7: 01/28/18 04:31 01/28/18 04:00 - ABG Interpretation ABG results: ABG ABG pH 7.41 pH Units (7.32-7.45) 01/15/18 15:59 ABG pCO2 46 mmHg (35-45) H 01/15/18 15:59 ABG pO2 79 mmHg (85-104) L 01/15/18 15:59 ABG O2 Saturation 96 % (95-98) 01/15/18 15:59 PT/INR, D-dimer PT 17.8 Seconds (9.4-12.1) H 01/15/18 09:11 Consult Discharge Plan - Plan Instructions: Cellulitis (DC), Adame Catheter Placement and Care (DC) Referrals: [facility] [Provider Group] Bulmaro Negro MD [Primary Care Provider] - 01/25/18 1:30 pm Jovani Goldberg MD [Partnered Physician] - Prescriptions: HYDROcodone/Acet 5/325 mg [[place] 5-325 mg] 1 tab PO Q6HR PRN 7 Days #28 tablet PRN Reason: Moderate Pain Omeprazole [PriLOSEC] 40 mg PO BID #60 cap predniSONE [PredniSONE] 10 mg PO DAILY #18 tablet Vancomycin [Vancocin] 750 mg IV Q12H #32 vial <Larry Lopez - Last Filed: 01/29/18 10:00> Date of Encounter: 01/28/18 - Constitutional Vitals: Vital Signs Temp Pulse Resp BP Pulse Ox 01/28/18 19:35 16 96 01/28/18 19:18 98.6 F 81 16 144/82 94 01/28/18 16:31 98.7 F 74 18 137/76 93 01/28/18 15:46 19 95 01/28/18 11:31 19 95 01/28/18 11:27 97.8 F 73 19 98/66 95 Intake and Output 01/29/18 01/29/18 01/29/18 00:59 08:59 16:59 Intake Total 480 / 480 Balance 480 / 480 Intake: Oral 480 / 480 Other: Meal Dinner Percent of Meal Consumed 100% Oncology: Obj Data - Labs CBC & Chem 7: 01/28/18 04:31 01/28/18 04:00 Labs: Laboratory Results - last 24 hr 01/27/18 01/28/18 01/28/18 21:08 11:26 16:35 POC Glucose 217 H 242 H 194 H Vancomycin Trough 01/28/18 17:00 POC Glucose Vancomycin Trough 12.8 - Impressions Impressions Chest CT 01/28/18 14:02 IMPRESSION: Prominent esophageal wall thickening spans approximately 9.4 cm of the lower mediastinum with surrounding adenopathy measuring up to 19 mm in the azygo-esophageal space. No pleural or parenchymal abnormality. D/ / Oneil Keys / Oneil Keys Interpreting Provider: Oneil Keys - ABG Interpretation ABG results: ABG ABG pH 7.41 pH Units (7.32-7.45) 01/15/18 15:59 ABG pCO2 46 mmHg (35-45) H 01/15/18 15:59 ABG pO2 79 mmHg (85-104) L 01/15/18 15:59 ABG O2 Saturation 96 % (95-98) 01/15/18 15:59 PT/INR, D-dimer PT 17.8 Seconds (9.4-12.1) H 01/15/18 09:11
[2018-01-28] MEDS: *HR* HYDROcodone/Acet 5/325 mg TABLET PO PRN (15:28)
--- NOTE | 2018-01-28 15:41 | Discharge Summary ---
- NOTES TO OUTPATIENT PROVIDER Notes to Outpatient Provider: Complete IV vancomycin 750mg every 12 hours until 2017. Follow up with Infectious disease as outpatient. NEw diagnosis of esophageal mass, follow up with oncology as outpatient after discharge from [facility] Orders not resulted at time of discharge: Pending orders 01/28/18 14:02 Lactate Dehydrogenase Routine 01/28/18 17:00 Vancomycin,Trough Timed 01/29/18 04:00 CBC [Complete Blood Count] [HEME] AM 0400 Chem 7 [Basic Metabolic Panel] AM 0400 Date of Encounter: 01/28/18 Time of Encounter: 15:41 - Discharge Diagnosis (1) Sepsis Priority: Primary Status: Resolved Qualifiers: Sepsis type: sepsis due to unspecified organism Qualified Code(s): A41.9 - Sepsis, unspecified organism (2) MRSA bacteremia Priority: Primary Status: Resolved (3) A-fib Priority: Secondary Status: Chronic Qualifiers: Atrial fibrillation type: chronic Qualified Code(s): I48.2 - Chronic atrial fibrillation (4) Abnormal CT of the abdomen Priority: Primary Status: Acute (5) Cellulitis of both lower extremities Priority: Primary Status: Resolved (6) Chronic indwelling Tomlinson catheter Priority: Secondary Status: Chronic (7) COPD (chronic obstructive pulmonary disease) Priority: Secondary Status: Chronic Qualifiers: COPD type: unspecified COPD Qualified Code(s): J44.9 - Chronic obstructive pulmonary disease, unspecified (8) Diabetes mellitus Priority: Secondary Status: Chronic Qualifiers: Diabetes mellitus type: type 2 Diabetes mellitus complication status: with hyperglycemia Diabetes mellitus custodial insulin use: without custodial use Qualified Code(s): E11.65 - Type 2 diabetes mellitus with hyperglycemia (9) Esophageal mass Priority: Primary Status: Acute (10) GERD (gastroesophageal reflux disease) Priority: Secondary Status: Chronic Qualifiers: Esophagitis presence: with esophagitis Qualified Code(s): K21.0 - Gastro- esophageal reflux disease with esophagitis (11) Hypertension Priority: Secondary Status: Chronic Qualifiers: Hypertension type: essential hypertension Qualified Code(s): I10 - Essential (primary) hypertension (12) UTI (urinary tract infection) Priority: Primary Status: Resolved Qualifiers: Urinary tract infection type: catheter-associated UTI Indwelling urinary catheter type: indwelling urethral catheter Encounter type: initial encounter Qualified Code(s): T83.511A - Infection and inflammatory reaction due to indwelling urethral catheter, initial encounter; N39.0 - Urinary tract infection , site not specified; N39.0 - Urinary tract infection, site not specified (13) Acute diastolic (congestive) heart failure Priority: Primary Status: Resolved Hospital course: Mr. Jimenez is a 72 year old male who was admitted for sepsis which was present on admission, secondary to MRSA UTI/Enteroccocus UTI, MRSA bacteremia. He alos has chronic venous stasis dermatitis and was suspected to have cellulitis on arrival. Patient has a past medical history of paroxysmal atrial fibrillation, Diastolic CHF, diabetes, GERD, hypertension, chronic venous stasis and chronic indwelling tomlinson cathter for urinary retention , and recurrent UTI. He presented to the ED complaining of fever, T max 102 at home, and lower abdominal discomfort. He also complained of worsening swelling and erythema in both legs. UA was positive for a urinary tract infection. Urine culture was positive for MRSA and enterococcus faecalis. Initial blood cultures were positive for MRSA times two. Repeat blood cultures preliminary read are negative. Chest x-ray showed no acute cardiopulmonary processes. Echocardiogram showed LVEF 60-65% no overt vegetations. CT of abdomen and pelvis reports reads findings suggestive of cystitis, most likely centered in a diverticulum arising from the left urinary bladder wall. Underlying malignancy is not entirely excluded. Consider urology evaluation. Suspected wall thickening near the gastroesophageal junction. While this appearance could be seen with esophagitis (especially given the presence of a small sliding hiatal hernia), there are new abnormal bilateral paraesophageal and retrocrural lymph nodes suspicious for metastatic disease. Recommend gastroenterology evaluation with consideration for endoscopy. Infectious disease, urology, and G.I. were consulted. Dr. Goldberg placed a new Tomlinson catheter patient tolerated well. GI performed an EGD and report suggests findings of Brad's esophagus. Hospital stay was complicated by Acute respiratory failure with hypoxia most likely secondary to acute exacerbation of COPD. Pt with oxygen saturation of 87 % on room air on admit. Current oxygen saturation of 98% on 2L NC, stable to discharge on same Patient has received a total of 14 days of vancomycin His CBC and Chem have been stable, chronic leukocytosis due to steroid use Hospital stay also complicated by acute on chronic diastolic CHF for which patient has been receiving lasix , he has a negative output of 20L and will be discharged on his home dose of 40mg po daily only. Other chronic medical conditions remained stable He is medically stable to be discharged to SNF for PT and completion of IV vancomycin through 02/13/18 Discharge discussed with: patient, family, nurse, social work, case management - Time Spent with Patient Total time spent providing and/or coordinating discharge services: Greater than 30 minutes - Discharge Medications Prescriptions: HYDROcodone/Acet 5/325 mg [[place] 5-325 mg] 1 tab PO Q6HR PRN 7 Days #28 tablet PRN Reason: Moderate Pain Omeprazole [PriLOSEC] 40 mg PO BID #60 cap predniSONE [PredniSONE] 10 mg PO DAILY #18 tablet Home Medications: Labetalol HCl 300 mg PO 0700,1200,2100 10/25/16 [History] Rivaroxaban [Xarelto] 20 mg PO QAM 10/25/16 [History] Carbidopa/Levodopa [Carbidopa-Levodopa 25-100 Tab] 1 tab PO HS 07/09/17 [History ] Cholecalciferol (Vitamin D3) [Vitamin D3] 5,000 unit PO QAM 07/09/17 [History] Furosemide [Lasix] 40 mg PO DAILY 01/15/18 [History] Lisinopril [Zestril] 20 mg PO DAILY 01/15/18 [History] Oxybutynin Chloride [Ditropan Xl] 15 mg PO DAILY 01/15/18 [History] Potassium Chloride 20 mg PO DAILY 01/15/18 [History] predniSONE [PredniSONE] 10 mg PO DAILY #18 tablet 01/22/18 [Rx] HYDROcodone/Acet 5/325 mg [[place] 5-325 mg] 1 tab PO Q6HR PRN 7 Days #28 tablet 01/25/18 [Rx] Omeprazole [PriLOSEC] 40 mg PO BID #60 cap 01/25/18 [Rx] Allergies/Adverse Reactions: 3 Allergy/AdvReac Type Severity Reaction Status Date / Time No Known Allergies Allergy Verified 01/15/18 08:57 Date of admission: 01/15/18 11:45 Primary care physician: Bulmaro Negro MD Consults: 01/15/18 13:06 Consult to College Professor [CONS] Routine Reason for SW Consult: weakness 01/16/18 10:03 PT [Consult to Physical Therapy] [CONS] Routine Comment: Evaluate, develop and implement POC Reason for Consult: Pt requests evaluation for mobility issues associated with R hip pain. 01/17/18 15:46 Consult to Urology [CONS] Routine Consulting Provider: [facility] [place] Reason for Consult: Tomlinson catheter Time Notified: 15:45 Call Completed: Yes 01/18/18 07:55 Consult to Infectious Diseases [CONS] Routine Consulting Provider: [facility] Reason for Consult: MRSA UTI/bacteremia Time Notified: 08:45 Call Completed: Yes 01/18/18 15:03 Consult to Gastroenterology [CONS] Routine Consulting Provider: [facility] [place] Reason for Consult: abnormal CT at EG junction, likely need EGD. Dr. Wright notified. 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 Call Completed: Yes 01/22/18 14:35 Consult to College Professor [CONS] Routine Reason for SW Consult: Family requesting info on ECF placement instead of HH Discharging clinician: Jude Yi Anticipated date of discharge: 01/28/18 - Constitutional Vitals: Temp Pulse Resp BP Pulse Ox 97.8 F 73 19 98/66 95 01/28/18 11:27 01/28/18 11:27 01/28/18 11:31 01/28/18 11:27 01/28/18 11:31 General appearance: Present: A&O X 3, pleasant, obese, answers questions appropriately - Head Head exam: Present: atraumatic, normocephalic - Eye Eye exam: Present: PERRL, conjuntiva pink, sclera anicteric Pupils: Present: PERRL - Neck Neck exam general surgery: Present: supple, trachea midline. Absent: lymphadenopathy - Respiratory Respiratory exam: Present: CTAB. Absent: accessory muscle use, rales, rhonchi, wheezes - Cardiovascular Cardiovascular exam: Present: RRR, +S1, +S2. Absent: diastolic murmur, gallop, rubs, systolic murmur - GI/Abdominal GI/Abdominal exam: Present: normal bowel sounds, soft, no peritoneal signs. Absent: distended, tenderness - Extremities Exam Extremities exam: Present: warm, radial pulses palpable and symmetrical. Absent : calf tenderness, cyanotic, pedal edema Additional comments: chronic venous stasis changes - Neurological Exam Neurological exam: Present: alert, CN II-XII intact, oriented X3, no focal deficits. Absent: pronater drift, facial droop, speech deficit - Skin Skin exam: Present: dry, intact - Patient Status Disposition: Transfer SNF Condition: Good Functional capacity at discharge: independent ambulation Overall status at discharge: patient is progressing back to baseline - Ambulatory Orders Ambulatory Orders: PET CT skull to thigh DX/initi [PE] Time Frame: 01/27/18, Facility: [facility], Location: Radiology - Discharge Instructions Instructions: Cellulitis (DC), Tomlinson Catheter Placement and Care (DC) Follow Up With: [facility] [place] [Provider Group] Bulmaro Negro MD [Primary Care Provider] - 01/25/18 1:30 pm Jovani Goldberg MD [Partnered Physician] - - Diet and Activity Activity: as per physical therapy Diet: low fat, low cholesterol, low salt diet
--- NOTE | 2018-01-28 15:56 | Physician Discharge Referral ---
ExtendedCare Referral Info Transfer To: [facility] Provider in Charge: Kevon Yi Provider in Charge after Transfer: PCP Institutional Level of Care: Skilled - Diagnosis (1) Sepsis Priority: Primary Status: Resolved (2) MRSA bacteremia Priority: Primary Status: Resolved (3) A-fib Priority: Secondary Status: Chronic (4) Abnormal CT of the abdomen Priority: Primary Status: Acute (5) Cellulitis of both lower extremities Priority: Primary Status: Resolved (6) Chronic indwelling [place] catheter Priority: Secondary Status: Chronic (7) COPD (chronic obstructive pulmonary disease) Priority: Secondary Status: Chronic (8) Diabetes mellitus Priority: Secondary Status: Chronic (9) Esophageal mass Priority: Primary Status: Acute (10) GERD (gastroesophageal reflux disease) Priority: Secondary Status: Chronic (11) Hypertension Priority: Secondary Status: Chronic (12) UTI (urinary tract infection) Priority: Primary Status: Resolved (13) Acute diastolic (congestive) heart failure Priority: Secondary Status: Resolved Prognosis: Fair Aware of Diagnosis: Patient Aware of Prognosis: Patient - Transfer Medications Prescriptions: HYDROcodone/Acet 5/325 mg [[place] 5-325 mg] 1 tab PO Q6HR PRN 7 Days #28 tablet PRN Reason: Moderate Pain Omeprazole [PriLOSEC] 40 mg PO BID #60 cap predniSONE [PredniSONE] 10 mg PO DAILY #18 tablet Vancomycin [Vancocin] 750 mg IV Q12H #32 vial Home Medications: Labetalol HCl 300 mg PO 0700,1200,2100 10/25/16 [History] Rivaroxaban [Xarelto] 20 mg PO QAM 10/25/16 [History] Carbidopa/Levodopa [Carbidopa-Levodopa 25-100 Tab] 1 tab PO HS 07/09/17 [History ] Cholecalciferol (Vitamin D3) [Vitamin D3] 5,000 unit PO QAM 07/09/17 [History] Furosemide [Lasix] 40 mg PO DAILY 01/15/18 [History] Lisinopril [Zestril] 20 mg PO DAILY 01/15/18 [History] Oxybutynin Chloride [Ditropan Xl] 15 mg PO DAILY 01/15/18 [History] Potassium Chloride 20 mg PO DAILY 01/15/18 [History] predniSONE [PredniSONE] 10 mg PO DAILY #18 tablet 01/22/18 [Rx] HYDROcodone/Acet 5/325 mg [[place] 5-325 mg] 1 tab PO Q6HR PRN 7 Days #28 tablet 01/25/18 [Rx] Omeprazole [PriLOSEC] 40 mg PO BID #60 cap 01/25/18 [Rx] Vancomycin [Vancocin] 750 mg IV Q12H #32 vial 01/28/18 [Rx] Allergies/Adverse Reactions: 3 Allergy/AdvReac Type Severity Reaction Status Date / Time No Known Allergies Allergy Verified 01/15/18 08:57 - Respiratory Orders Oxygen / L per min (2 l /min) Smoking Cessation: Smoking cessation has been advised. For more information, call the [place] Tobacco Quit Line at 1-933-UQRA-NOW. - Advance Directives Code Status: Full Code - Mobility Orders Other (per PT) - Diet Orders No Concentrated Sweets, Cardiac CERTIFICATION: I certify that the transfer of the above named patient to an Extended Care Facility is necessary for the continuing treatment of the diagnosis listed. The above information is true and accurate reflection of patient's current condition. Confidential - Redisclosure prohibited without a patient's written consent.
[2018-01-28 19:19] VITALS: BP 144/82
[2018-01-28] MEDS ORDERED: Aminoglycoside Consult 1 EACH MC ONE (20:14)
[2018-01-29] MEDS ORDERED: predniSONE 10 MG TABLET PO SCH (09:00)
[2018-01-29] MEDS ORDERED: Furosemide 40 MG TABLET PO SCH (09:00)
== END 2018-01-28 20:15 | DRG 698 ==
LOC: 3ANU 08:53 → EMEROO 08:53 → SUATTDRO 11:45 → 3ANU 12:26
PROVIDERS: ADMIT Family Medicine; ATTEND Internal Medicine
PROC: ENDOEBX (2018-01-21 16:00)

== ENCOUNTER 2018-02-17 14:15 | Inpatient (IN) ==
--- NOTE | 2018-02-17 15:05 | Emergency Department Note ---
Disposition Clinical Impression: Acute cholecystitis Disposition: Still a Patient Condition: Fair Referrals: Bulmaro Negro MD [Primary Care Provider] - Forms: ED Satisfaction Letter Time of Disposition: 19:05 General Adult HPI - General Chief complaint: ED Cardiac Arrest/CPR Stated complaint: elevated HR, low O2 Time Seen by Provider: 02/17/18 14:20 Source: patient Mode of arrival: ambulatory Limitations: no limitations Nursing Notes Reviewed: Yes Vital Signs Reviewed: Yes - History of Present Illness HPI Narrative: Patient is a 72-year-old male who presents to [facility] ED with a chief complaint of elevated heart rate and low oxygenation. Patient was getting his Adame catheter changed out in the urology office when they noted him to be tachycardic in his oxygenation to be around 90% on room air. Patient him over to the emergency department for evaluation. Patient states the only symptom he had earlier in the day was abdominal pain. Denies any nausea, vomiting, fever or chills. No chest pain, difficulty breathing, current abdominal pain, problems with urination or bowel movements. Patient has a recent diagnosis of esophageal cancer and is currently being seen by the cancer center. This was just diagnosed approximately one week ago. He was also recently in the hospital for a urinary tract infection with MRSA had lead to MRSA bacteremia. Radiation: non-radiation Pain Scale: 3 Improves with: nothing Worsens with: nothing Associated symptoms: Denies: chest pain, cough, fever/chills, nausea/vomiting, shortness of breath Treatments Prior to Arrival: none - Related Data Home Medications Medication Instructions Recorded Confirmed Labetalol HCl 300 mg PO 0700,1200,2100 10/25/16 01/15/18 Rivaroxaban [Xarelto] 20 mg PO QAM 10/25/16 01/15/18 Carbidopa/Levodopa 1 tab PO HS 07/09/17 01/15/18 [Carbidopa-Levodopa 25-100 Tab] Cholecalciferol (Vitamin D3) 5,000 unit PO QAM 07/09/17 01/15/18 [Vitamin D3] Furosemide [Lasix] 40 mg PO DAILY 01/15/18 01/15/18 Lisinopril [Zestril] 20 mg PO DAILY 01/15/18 01/15/18 Oxybutynin Chloride [Ditropan Xl] 15 mg PO DAILY 01/15/18 01/15/18 Potassium Chloride 20 mg PO DAILY 01/15/18 01/15/18 Previous Rx's Medication Instructions Recorded predniSONE [PredniSONE] 10 mg PO DAILY #18 tablet 01/22/18 HYDROcodone/Acet 5/325 mg [[place] 1 tab PO Q6HR PRN 7 Days #28 tablet 01/25/18 5-325 mg] Omeprazole [PriLOSEC] 40 mg PO BID #60 cap 01/25/18 Vancomycin [Vancocin] 750 mg IV Q12H #32 vial 01/28/18 Allergies Allergy/AdvReac Type Severity Reaction Status Date / Time No Known Allergies Allergy Verified 01/15/18 08:57 All systems ED: reviewed and negative except as stated. Past Medical History - Past Medical History Attestation: Yes The following information was validated with the patient. Source: patient Medical history: Reports: atrial fibrillation, cancer, CHF, diabetes, GERD, hypertension, venous stasis Surgical history: Reports: appendectomy, herniorrhaphy, knee replacement ( Bilateral), orthopedic, other Psychiatric history: Reports: no psych history - Social History Smoking Status: Never smoker Smokeless Tobacco Status: No Alcohol use: Reports: none Drug use: Reports: none Physical Exam - General General appearance: alert, in no apparent distress - Head Head exam: atraumatic, normocephalic, normal inspection - Eye Eye exam: Present: normal appearance, EOMI - ENT ENT exam: normal exam, normal oropharynx, mucous membranes moist - Neck Neck exam: Present: normal inspection, full ROM, trachea midline - Chest Chest inspection: Present: normal inspection, symmetric chest wall rise - Respiratory Respiratory exam: Present: normal lung sounds bilaterally - Cardiovascular Cardiovascular exam: Present: normal rhythm, tachycardia, normal heart sounds - Abdominal Exam Abdominal exam: Present: soft, Non-Tender, normal bowel sounds. Absent: distention, guarding, rebound, rigidity - Extremities Exam Extremities exam: Present: full ROM, pedal edema (1+) - Neurological Exam Neurological exam: Present: alert, oriented X3 - Psychiatric Psychiatric exam: Present: normal affect, normal mood - Skin Skin exam: Present: warm, dry, intact, normal color Course Course Narrative: Patient seen and examined. Patient tachycardic and was hypoxemic. Here, he is in the low 90s on room air. Patient had been complaining of abdominal pain earlier on in the day. Abdominal pain workup ordered. We will do a CT with IV contrast if patient's renal function is okay. - Reevaluation(s) Reevaluation #1: Patient's renal function was unremarkable. Patient's CTA of the chest was ordered to rule out pulmonary embolus. Also had a CT abdomen and pelvis with IV contrast. Patient's white count was seemed to be 19,000. CT of the abdomen and pelvis showed signs of acute cholecystitis. I discussed with the surgeon Dr. Prasad who will see patient in consult. Would like umer castro. We will discuss with hospitalist for admission.. Time: 19:04 Vital Signs Temperature 97.7 F 02/17/18 14:19 Pulse Rate 119 02/17/18 14:19 Respiratory Rate 19 02/17/18 14:19 Blood Pressure 143/118 02/17/18 14:19 O2 Sat by Pulse Oximetry 97 02/17/18 14:19 Temperature 97.7 F 02/17/18 14:19 Pulse Rate 112 02/17/18 16:16 Respiratory Rate 14 02/17/18 16:16 Blood Pressure 142/87 02/17/18 16:16 O2 Sat by Pulse Oximetry 96 02/17/18 16:16 Oxygen Delivery Oxygen Delivery Non Rebreather Mask Medical Decision Making - Medical Records Medical records reviewed: Yes I reviewed the patient's medical records. - Lab Data Lab results reviewed: Yes I reviewed the patient's lab results. Result diagrams: 02/17/18 15:35 02/17/18 15:35 Lab Results 02/17/18 02/17/18 02/17/18 Range/Units 15:35 15:35 15:35 WBC 19.3 H (4.3-11.1) K/mcL RBC 4.69 (4.19-5.50) M/mcL Hgb 13.2 (12.9-16.9) g/dL Hct 41.7 (37.5-50.1) % MCV 88.9 (83.0-100.0) fL MCH 28.1 (28.0-33.3) pg MCHC 31.7 (31.6-35.5) g/dL RDW 13.9 (11.5-14.5) % Plt Count 355 (140-400) K/mcL MPV 9.9 (9.4-12.4) fL Immature Gran % 0.5 (0-4) % Seg Neutrophils % 84.8 % Lymphocytes % 6.0 % Monocytes % 7.9 % Eosinophils % 0.4 % Basophils % 0.4 % Neutrophils # 16.3 H (1.6-8.9) K/mcL Lymphocytes # 1.2 (0.6-4.6) K/mcL Monocytes # 1.5 H (0.0-1.3) K/mcL Eosinophils # 0.1 (0.0-0.6) K/mcL Basophils # 0.1 (0.0-0.2) K/mcL Sodium 134 L (136-145) mEq/L Potassium 4.0 (3.5-5.1) mEq/L Chloride 94 L (98-107) mEq/L Carbon Dioxide 31 H (23-29) mEq/L BUN 18 (8-23) mg/dL Creatinine 0.97 (0.70-1.30) mg/dL Est GFR ( Amer) > 60 (> 60) Est GFR (Non-Af Amer) > 60 (> 60) BUN/Creatinine Ratio 19 (6-26) Glucose 279 H (70-105) mg/dL Calculated Osmolality 290 (280-300) Lactic Acid 1.2 (0.5-2.2) mmol/L Calcium 9.6 (8.6-10.3) mg/dL Total Bilirubin 0.8 (0.3-1.0) mg/dL Direct Bilirubin 0.3 H (0.0-0.2) mg/dL Indirect Bilirubin 0.5 (0.0-1.2) mg/dL AST 16 (13-39) Units/L ALT 16 (7-52) Units/L Alkaline Phosphatase 106 H (34-104) Units/L Troponin I < 0.03 (< 0.04) ng/mL Serum Total Protein 7.0 (6.4-8.9) g/dL Albumin 3.7 (3.5-5.7) g/dL Globulin 3.3 (2.4-3.5) g/dL Albumin/Globulin Ratio 1.1 (1.1-2.2) Lipase 22 (11-82) Units/L Urine Color (Yellow) Urine Clarity (Clear) Urine pH (5.0-8.0) pH Units Ur Specific [place] (1.010-1.025) Urine Protein (Neg-Trace) mg/dL Urine Glucose (UA) (Normal) mg/dL Urine Ketones (Negative) mg/dL Urine Blood (Negative) Urine Nitrite (Negative) Urine Bilirubin (Negative) Urine Urobilinogen (Normal) mg/dL Ur Leukocyte Esterase (Negative) Urine Microscopic RBC (0-3) per hpf Urine Microscopic WBC (0-3) per hpf Ur Squamous Epith Cells (None-Few) per lpf Urine Bacteria (None-Few) per hpf Urine Yeast (None Seen) per hpf Ur Culture Indicated? (NO) 02/17/18 Range/Units 15:57 WBC (4.3-11.1) K/mcL RBC (4.19-5.50) M/mcL Hgb (12.9-16.9) g/dL Hct (37.5-50.1) % MCV (83.0-100.0) fL MCH (28.0-33.3) pg MCHC (31.6-35.5) g/dL RDW (11.5-14.5) % Plt Count (140-400) K/mcL MPV (9.4-12.4) fL Immature Gran % (0-4) % Seg Neutrophils % % Lymphocytes % % Monocytes % % Eosinophils % % Basophils % % Neutrophils # (1.6-8.9) K/mcL Lymphocytes # (0.6-4.6) K/mcL Monocytes # (0.0-1.3) K/mcL Eosinophils # (0.0-0.6) K/mcL Basophils # (0.0-0.2) K/mcL Sodium (136-145) mEq/L Potassium (3.5-5.1) mEq/L Chloride (98-107) mEq/L Carbon Dioxide (23-29) mEq/L BUN (8-23) mg/dL Creatinine (0.70-1.30) mg/dL Est GFR ( Amer) (> 60) Est GFR (Non-Af Amer) (> 60) BUN/Creatinine Ratio (6-26) Glucose (70-105) mg/dL Calculated Osmolality (280-300) Lactic Acid (0.5-2.2) mmol/L Calcium (8.6-10.3) mg/dL Total Bilirubin (0.3-1.0) mg/dL Direct Bilirubin (0.0-0.2) mg/dL Indirect Bilirubin (0.0-1.2) mg/dL AST (13-39) Units/L ALT (7-52) Units/L Alkaline Phosphatase (34-104) Units/L Troponin I (< 0.04) ng/mL Serum Total Protein (6.4-8.9) g/dL Albumin (3.5-5.7) g/dL Globulin (2.4-3.5) g/dL Albumin/Globulin Ratio (1.1-2.2) Lipase (11-82) Units/L Urine Color [place] A (Yellow) Urine Clarity Turbid A (Clear) Urine pH 5.5 (5.0-8.0) pH Units Ur Specific [place] > 1.030 H (1.010-1.025) Urine Protein 100 H (Neg-Trace) mg/dL Urine Glucose (UA) 100 H (Normal) mg/dL Urine Ketones Trace H (Negative) mg/dL Urine Blood Large H (Negative) Urine Nitrite Negative (Negative) Urine Bilirubin Small H (Negative) Urine Urobilinogen Normal (Normal) mg/dL Ur Leukocyte Esterase Large H (Negative) Urine Microscopic RBC 5-15 H (0-3) per hpf Urine Microscopic WBC TNTC H (0-3) per hpf Ur Squamous Epith Cells Moderate H (None-Few) per lpf Urine Bacteria Few (None-Few) per hpf Urine Yeast Many H (None Seen) per hpf Ur Culture Indicated? YES A (NO) - Radiology Data Radiology results reviewed: Yes I reviewed the patient's radiology results. Abdomen/Pelvis CT 02/17/18 17:11 IMPRESSION: 1. No evidence of pulmonary embolism when accounting for motion artifact 2. 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 No suspicious infiltrate or edema 3. Moderate hiatal hernia with fluid in the esophagus compatible with reflux 4. Acute cholecystitis which likely accounts for small amount of perihepatic and pelvic fluid 5. Colonic diverticulosis D/ / Jovani Anderson MD / Jovani Anderson MD Interpreting Provider: Jovani Anderson MD Chest CTA 02/17/18 17:11 IMPRESSION: 1. No evidence of pulmonary embolism when accounting for motion artifact 2. 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 No suspicious infiltrate or edema 3. Moderate hiatal hernia with fluid in the esophagus compatible with reflux 4. Acute cholecystitis which likely accounts for small amount of perihepatic and pelvic fluid 5. Colonic diverticulosis D/ / Jovani Anderson MD / Jovani Anderson MD Interpreting Provider: Jovani Anderson MD - EKG Data EKG #1 EKG attestation: Yes I reviewed and interpreted this EKG. EKG results narrative: EKG done at 1427 shows sinus tachycardia with a rate of [address] elevation or depression. Left axis deviation. Inverted T waves noted in lead 3. EKG unchanged from prior one done 01/15/2018. Attestation Statement - Attestation Attestation: I examined this patient and my medical decision-making was reviewed with the Resident Physician. I agree with the documented findings, disposition and treatment plan as described except to the extent set forth below. I Dr. Herring on examined this patient. Patient with multiple medical problems including MRSA bacteremia with recent hospitalization requiring IV vancomycin. Patient had a right PICC line for IV antibiotics recently. He presents again today with elevated heart rate and shortness of breath. CTs are pending at this time. He does still have evidence of urinary tract infection with nitrite positive urine. Patient will need to be readmitted and started on IV antibiotics again. He does have an elevated white blood cell count as well.
[2018-02-17 15:49] LABS: Basophils # 0.1 K/mcL (0.0-0.2); Basophils % 0.4 %; Eosinophils # 0.1 K/mcL (0.0-0.6); Eosinophils % 0.4 %; Hematocrit 41.7 % (37.5-50.1); Hemoglobin 13.2 g/dL (12.9-16.9); Immature Granulocytes % 0.5 % (0-4); Lymphocytes # 1.2 K/mcL (0.6-4.6); Mean Corpuscular HGB Conc 31.7 g/dL (31.6-35.5); Mean Corpuscular Hemoglobin 28.1 pg (28.0-33.3); Mean Corpuscular Volume 88.9 fL (83.0-100.0); Mean Platelet Volume 9.9 fL (9.4-12.4); Monocytes # 1.5 K/mcL (0.0-1.3); Monocytes % 7.9 %; Neutrophils # 16.3 K/mcL (1.6-8.9); Platelet Count 355 K/mcL (140-400); Red Blood Count 4.69 M/mcL (4.19-5.50); Red Cell Distribution Width 13.9 % (11.5-14.5); Segmented Neutrophils % 84.8 %
[2018-02-17 16:09] LABS: Alanine Aminotransferase 16 Units/L (7-52); Albumin 3.7 g/dL (3.5-5.7); Albumin/Globulin Ratio 1.1 (1.1-2.2); Alkaline Phosphatase 106 Units/L (34-104); Aspartate Amino Transferase 16 Units/L (13-39); BUN/Creatinine Ratio 19 (6-26); Bilirubin,Direct 0.3 mg/dL (0.0-0.2); Bilirubin,Indirect 0.5 mg/dL (0.0-1.2); Bilirubin,Total 0.8 mg/dL (0.3-1.0); Blood Urea Nitrogen 18 mg/dL (8-23); Calcium 9.6 mg/dL (8.6-10.3); Carbon Dioxide 31 mEq/L (23-29); Chloride 94 mEq/L (98-107); Globulin 3.3 g/dL (2.4-3.5); Glucose 279 mg/dL (70-105); Lipase 22 Units/L (11-82); Osmolality,Calculated 290 (280-300); Sodium 134 mEq/L (136-145); Troponin I < 0.03 ng/mL (< 0.04); eGFR For African Americans > 60 (> 60); eGFR For Non-African Americans > 60 (> 60)
[2018-02-17 16:12] LABS: Bilirubin,Urine Small (Negative); Blood,Urine Large (Negative); Clarity,Urine Turbid (Clear); Glucose,Urine (UA) 100 mg/dL (Normal); Ketones,Urine Trace mg/dL (Negative); Leukocyte Esterase,Urine Large (Negative); Nitrite,Urine Negative (Negative); PH,Urine 5.5 pH Units (5.0-8.0); Protein,Urine 100 mg/dL (Neg-Trace); Specific Gravity,Urine > 1.030 (1.010-1.025); Urobilinogen,Urine Normal (Normal)
[2018-02-17 16:14] LABS: Squamous Epithelial Cell,Urine Moderate per lpf (None-Few); WBC,Urine TNTC per hpf (0-3)
[2018-02-17 16:20] LABS: Color,Urine Amber (Yellow)
[2018-02-17 16:43] LABS: Yeast,Urine Many per hpf (None Seen)
[2018-02-17 16:44] LABS: Bacteria,Urine Few per hpf (None-Few)
[2018-02-17] MEDS ORDERED: 0.9 % Sodium Chloride 1,000 ML IVC ONE (17:12)
[2018-02-17] MEDS ORDERED: Piperacillin/Tazobactam 3.375 GM in 0.9 % Sodium Chloride Mini Bag 100 ML IVPB ONE (18:52)
[2018-02-17] MEDS ORDERED: *HR* FentaNYL (PF) 100 MCG/2 ML VIAL IVP ONE (18:54)
[2018-02-17 19:28] LABS: Hyaline Casts,Urine None Seen per lpf (None-Few)
[2018-02-18] MEDS ORDERED: Naloxone 0.4 MG/ML INJ IVP PRN ×2 (00:17→16:32)
[2018-02-18] MEDS ORDERED: Acetaminophen 325 MG TABLET PO PRN ×2 (00:17→16:32)
--- NOTE | 2018-02-18 00:27 | Internal Med History&Physical ---
Date of Encounter: 02/17/18 Time of Encounter: 23:00 Assessment and Plan (1) Acute cholecystitis Current visit: Yes Status: Acute Patient has tachycardia and leukocytosis. CT abdomen shows acute cholecystitis. - Keep patient nothing by mouth, IV fluid - Place on Zosyn - Surgical consult (2) Esophageal cancer Current visit: No Status: Acute Patient was found esophageal cancer recently in 2 weeks ago. Will follow up with oncology as outpatient Qualifiers: Malignant neoplasm of esophagus location: unspecified location Qualified Code(s): C15.9 - Malignant neoplasm of esophagus, unspecified (3) Cellulitis of both lower extremities Current visit: No Status: Resolved Patient has bilateral cellulitis, right > left. Patient was placed on vancomycin now. Follow-up blood culture (4) DVT prophylaxis Current visit: No Status: Acute Patient is on xarelto. Hold xarelto now for possible surgery. Place patient on foot pump (5) Sepsis Current visit: No Status: Resolved Patient meets sepsis criteria with tachycardia and leukocytosis. The source of infection is most likely acute cholecystitis. - Continue IV fluid per protocol - Continue Zosyn - Initial lactate acid level 1.2 Qualifiers: Sepsis type: sepsis due to unspecified organism Qualified Code(s): A41.9 - Sepsis, unspecified organism (6) Diabetes mellitus Current visit: No Status: Chronic Place the patient on sliding scale insulin Qualifiers: Diabetes mellitus type: type 2 Diabetes mellitus mcfp insulin use: without mcfp use Diabetes mellitus complication status: with hyperglycemia Qualified Code(s): E11.65 - Type 2 diabetes mellitus with hyperglycemia (7) A-fib Current visit: No Status: Chronic Patient has mild tachycardia. We will continue home by mouth medications. Hold xarelto at this point for possible surgery. Qualifiers: Atrial fibrillation type: chronic Qualified Code(s): I48.2 - Chronic atrial fibrillation (8) UTI (urinary tract infection) Current visit: No Status: Acute Patient is on Zosyn. Follow up urine culture Qualifiers: Urinary tract infection type: catheter-associated UTI Indwelling urinary catheter type: indwelling urethral catheter Encounter type: subsequent encounter Qualified Code(s): T83.511D - Infection and inflammatory reaction due to indwelling urethral catheter, subsequent encounter; N39.0 - Urinary tract infection, site not specified; N39.0 - Urinary tract infection, site not specified (9) Morbid obesity with BMI of 45.0-49.9, adult Current visit: No Status: Chronic Need lifestyle modification as outpatient Internal Medicine - H&P: HPI Chief complaint: Tachycardia Admitted From: Home Plans for Post Hospital Care: Home History of present illness: Mr. Jimenez is a 72 year old male with history of chronic Adaem catheter use, esophagus cancer, A. fib on xarelto, cellulitis, recent bacteremia with MRSA positive, presented to ER for tachycardia. Patient went to his urology office to change the Adame catheter. During the visit, he was a found tachycardia with a heart rate 140 and desaturation with SPO2 at 80s. Patient was placed on nasal cannula oxygen and sent to ER. Patient denies a fever, nausea, or abdominal pain. Patient denies cough. Patient has mild shortness of breath. In the emergency room, CT abdomen shows acute cholecystitis. Patient was started antibiotic and IV fluid. His symptoms has slightly improved after treatment. Surgical consult was called by ER. Patient was admitted for further management. Past Med Surg Social Fam HX - Past Medical History Medical history: atrial fibrillation, cancer, CHF, COPD, diabetes, GERD, hyperlipidemia, hypertension, malignancy, venous stasis Psychiatric history: anxiety - Past Surgical History Surgical History: appendectomy, herniorrhaphy, knee replacement - Social History Smoking Status: Never smoker Smokeless Tobacco Status: No Alcohol use: none Drug use: none - Family History Mother Living Status: Hx Family Cardiac Disorders: Yes (HTN) Father Living Status: Hx Family Cardiac Disorders: Yes (CHF, HTN) Hx Family Respiratory Disorders: No Hx Family Cancer: No Hx Family Endocrine Disorder: No Internal Medicine - H&P: Meds Labetalol HCl 300 mg PO 0700,1200,2100 10/25/16 [History] Rivaroxaban [Xarelto] 20 mg PO QAM 10/25/16 [History] Carbidopa/Levodopa [Carbidopa-Levodopa 25-100 Tab] 1 tab PO HS 07/09/17 [History ] Cholecalciferol (Vitamin D3) [Vitamin D3] 5,000 unit PO QAM 07/09/17 [History] Furosemide [Lasix] 40 mg PO DAILY 01/15/18 [History] Lisinopril [Zestril] 20 mg PO DAILY 01/15/18 [History] Oxybutynin Chloride [Ditropan Xl] 15 mg PO DAILY 01/15/18 [History] Potassium Chloride 20 meq PO DAILY 01/15/18 [History] HYDROcodone/Acet 5/325 mg [[place] 5-325 mg] 1 tab PO Q6HR PRN 7 Days #28 tablet 01/25/18 [Rx] Omeprazole [PriLOSEC] 40 mg PO BID #60 cap 01/25/18 [Rx] Doxycycline 02/17/18 [History] 3 Allergy/AdvReac Type Severity Reaction Status Date / Time No Known Allergies Allergy Verified 01/15/18 08:57 All Systems PM: A 10-system review of systems was performed and is negative for pertinent findings except as documented above in the HPI. - Constitutional Vitals: Temp Pulse Resp BP Pulse Ox 99.0 F 120 18 142/87 94 02/17/18 23:50 02/17/18 23:50 02/17/18 23:50 02/17/18 23:50 02/17/18 23:50 General appearance: Present: A&O X 3, no acute distress, answers questions appropriately - Head Head exam: Present: atraumatic, normocephalic - Eye Eye exam: Present: PERRL, conjuntiva pink, sclera anicteric Pupils: Present: PERRL - Neck Neck exam general surgery: Present: supple, trachea midline. Absent: lymphadenopathy - Respiratory Respiratory exam: Present: CTAB. Absent: accessory muscle use, rales, rhonchi, wheezes - Cardiovascular Cardiovascular exam: Present: RRR, +S1, +S2. Absent: diastolic murmur, gallop, rubs, systolic murmur - GI/Abdominal GI/Abdominal exam: Present: normal bowel sounds, soft, tenderness (Tenderness on RUQ), no peritoneal signs. Absent: distended - Extremities Exam Extremities exam: Present: warm, radial pulses palpable and symmetrical. Absent : calf tenderness, cyanotic, pedal edema Additional comments: Pt has rt lower leg skin redness/warmth. - Neurological Exam Neurological exam: Present: CN II-XII intact, oriented X3, no focal deficits. Absent: pronater drift, facial droop, speech deficit - Skin Skin exam: Present: dry, intact Internal Med - H&P Results - Labs CBC & Chem 7: 02/17/18 15:35 02/17/18 15:35
[2018-02-18] MEDS ORDERED: 0.9 % Sodium Chloride 1,000 ML IVC SCH (00:30)
[2018-02-18] MEDS ORDERED: *HR* Dextrose 50 % in Water (Syg) 50 ML SYRINGE IVP PRN ×2 (00:37→16:32)
[2018-02-18] MEDS ORDERED: D5% in Water 1,000 ML IVC PRN ×2 (00:37→16:32)
[2018-02-18] MEDS ORDERED: Dextrose Gel 15 GM/37.5 ML TUBE PO PRN ×4 (00:37→16:32)
[2018-02-18] MEDS: Ondansetron 4 MG/2 ML VIAL IVP PRN ×2 (04:56→06:01)
[2018-02-18] MEDS ORDERED: Acetaminophen IV 500 MG/50 ML INFUS..BTL IVPB ONE (05:56)
[2018-02-18] MEDS ORDERED: Ondansetron 4 MG/2 ML VIAL IVP ONE (05:57)
[2018-02-18] MEDS: Insulin LISPRO 300 UNITS/3 ML VIAL SQ SCH ×3 (05:59→18:12)
[2018-02-18 06:02] LABS: Basophils % 0.3 %; Monocytes % 7.3 %
[2018-02-18 06:03] LABS: Basophils # 0.1 K/mcL (0.0-0.2); Eosinophils % 0.1 %; Hematocrit 41.1 % (37.5-50.1); Immature Granulocytes % 1.2 % (0-4); Lymphocytes # 1.7 K/mcL (0.6-4.6); Lymphocytes % 6.3 %; Mean Corpuscular HGB Conc 31.6 g/dL (31.6-35.5); Mean Corpuscular Hemoglobin 28.1 pg (28.0-33.3); Mean Corpuscular Volume 88.8 fL (83.0-100.0); Mean Platelet Volume 10.2 fL (9.4-12.4); Neutrophils # 23.1 K/mcL (1.6-8.9); Platelet Count 396 K/mcL (140-400); Red Blood Count 4.63 M/mcL (4.19-5.50); Red Cell Distribution Width 13.8 % (11.5-14.5); Segmented Neutrophils % 84.8 %
[2018-02-18 06:09] LABS: INR 1.3; Prothrombin Time 14.4 Seconds (9.4-12.1)
[2018-02-18 06:12] LABS: BUN/Creatinine Ratio 18 (6-26); Blood Urea Nitrogen 18 mg/dL (8-23); Calcium 9.4 mg/dL (8.6-10.3); Carbon Dioxide 34 mEq/L (23-29); Chloride 96 mEq/L (98-107); Glucose 284 mg/dL (70-105); Osmolality,Calculated 300 (280-300); Potassium 3.7 mEq/L (3.5-5.1); Sodium 139 mEq/L (136-145); eGFR For African Americans > 60 (> 60); eGFR For Non-African Americans > 60 (> 60)
[2018-02-18 06:28] LABS: Platelet Estimate Normal (Normal)
[2018-02-18] MEDS ORDERED: Piperacillin/Tazobactam 3.375 GM in 0.9 % Sodium Chloride Mini Bag 100 ML IVPB SCH (08:00)
[2018-02-18] MEDS ORDERED: *HR* Metoprolol 5 MG/5 ML VIAL IVP PRN (08:10)
[2018-02-18] MEDS ORDERED: Pantoprazole 40 MG in 0.9 % Sodium Chloride Mini Bag 100 ML IVC STA (08:10)
--- NOTE | 2018-02-18 08:56 | General Surgery Consult Note ---
Date of Encounter: 02/18/18 Time of Encounter: 08:54 Assessment and Plan (1) Acute cholecystitis Current Visit: Yes Status: Acute We will plan for surgical intervention (laproscopic cholecystectomy) in the next 24 to 48 hours. Recommendations, risks, and benefits have been reviewed with the patient by Dr. Prasad. A signed consent is placed on the hard chart. NPO IV fluids per primary team continue supportive care and discomfort management serial labs continue IV antibiotics per primary team (2) A-fib Current Visit: No Status: Chronic Patient takes Xarelto. His last dose was noted to be Thursday02/16/2018. His INR is currently 1.3. Qualifiers: Atrial fibrillation type: chronic Qualified Code(s): I48.2 - Chronic atrial fibrillation (3) Esophageal cancer Current Visit: No Status: Acute Qualifiers: Malignant neoplasm of esophagus location: unspecified location Qualified Code(s): C15.9 - Malignant neoplasm of esophagus, unspecified History of Present Illness Consult date: 02/17/18 (Dr Prasad) Reason for consult: other (Acute cholecystitis) Requesting physician: Mey Harrison History of present illness: Anders is a 72 year old male with a past medical history atrial fibrillation on chronic anticoagulation, recent bacteremia with MRSA positive, chronic Adame catheter, esophageal cancer, G.I. bleed. He presented on 2017 with complaints of tachycardia and decreased oxygen saturation's. He was at his urologist to have his Adame catheter changed and the urologist recommended he presented to the emergency department for evaluation. His is present during the interview and provides the bulk of his subjective information as he is a poor history and currently, reporting "I don't really know what's been wrong with me I just don't feel well." His reports that he had abdominal discomfort yesterday and is also been vomiting dark material. Denies fever, chills, chest pain, headache, dizziness, or near syncope. She reports that he complained of having a slight cough and feeling his heart race which was not unusual for him. His clinical course thus far has included a surgery consult called by the emergency department for concern of acute cholecystitis noted on CT of the abdomen and pelvis with IV and no oral contrast. His white blood cell count was 19.3 on admission and has increased to 27.2. His hemoglobin is stable at 12.6. INR is 1.3. He reports he last took his anticoagulation on Thursday. Past Med Surg Social Fam HX - Past Medical History Source: obtained from family Medical history: atrial fibrillation, cancer, CHF, COPD, diabetes, GERD, hyperlipidemia, hypertension, malignancy, venous stasis Psychiatric history: anxiety - Past Surgical History Surgical History: appendectomy, herniorrhaphy, knee replacement - Social History Smoking Status: Never smoker Smokeless Tobacco Status: No Alcohol use: none Drug use: none - Family History Mother Living Status: Hx Family Cardiac Disorders: Yes (HTN) Father Living Status: Hx Family Cardiac Disorders: Yes (CHF, HTN) Hx Family Respiratory Disorders: No Hx Family Cancer: No Hx Family Endocrine Disorder: No Medications and Allergies Labetalol HCl 300 mg PO 0700,1200,2100 10/25/16 [History] Rivaroxaban [Xarelto] 20 mg PO QAM 10/25/16 [History] Carbidopa/Levodopa [Carbidopa-Levodopa 25-100 Tab] 1 tab PO HS 07/09/17 [History ] Cholecalciferol (Vitamin D3) [Vitamin D3] 5,000 unit PO QAM 07/09/17 [History] Furosemide [Lasix] 40 mg PO DAILY 01/15/18 [History] Lisinopril [Zestril] 40 mg PO DAILY 01/15/18 [History] Oxybutynin Chloride [Ditropan Xl] 15 mg PO DAILY 01/15/18 [History] Potassium Chloride 20 meq PO DAILY 01/15/18 [History] HYDROcodone/Acet 5/325 mg [Aurora 5-325 mg] 1 tab PO Q6HR PRN 7 Days #28 tablet 01/25/18 [Rx] Omeprazole [PriLOSEC] 40 mg PO BID #60 cap 01/25/18 [Rx] Doxycycline 100 mg PO BID 02/17/18 [History] Metformin HCl [Metformin HCl ER] 1,000 mg PO BID 02/18/18 [History] Pantoprazole Sodium [Protonix] 40 mg PO DAILY 02/18/18 [History] SitaGLIPtin [Januvia] 100 mg PO DAILY 02/18/18 [History] 3 Allergy/AdvReac Type Severity Reaction Status Date / Time No Known Allergies Allergy Verified 01/15/18 08:57 Review of Systems All systems PM: reviewed and no additional remarkable complaints except as stated All systems PM: The remainder of the systems were reviewed and are negative General Surgery Exam Initial Vital Signs Temp Pulse Resp BP Pulse Ox 97.7 F 119 19 143/118 97 02/17/18 14:19 02/17/18 14:19 02/17/18 14:19 02/17/18 14:19 02/17/18 14:19 VITAL SIGNS: Reviewed. Tachycardic, EKG with sinus tack noted. See [facility] GENERAL: In no apparent distress. HEENT: Normocephalic, atraumatic, pupils are equal and reactive, extraocular motions intact, oropharynx is pink and dry, there is no neck adenopathy or JVD noted. CHEST/RESPIRATORY: The thorax is free from signs of trauma. Lung sounds: decreased course breath sounds CARDIAC: tachy rate and regular rhythm. Normal S1 and S2, systolic murmurs noted , no gallops, or rubs. VASCULAR: decreased pedal pulses, brawny appearance, 2-3+ pitting edema noted ABDOMEN: soft, tender in the right upper quadrant (positive Lind sign), hypoactive bowel sounds, protuberant abdomen MUSCULOSKELETAL: decreased range of motion, range of motion noted. Extremities as detailed above. NEUROLOGIC EXAM: Alert and oriented x 3. Speech slightly garbled. Follows commands. PSYCHIATRIC: Mood normal. SKIN: brawny extremities. Exam Initial Vital Signs Temp Pulse Resp BP Pulse Ox 97.7 F 119 19 143/118 97 02/17/18 14:19 02/17/18 14:19 02/17/18 14:19 02/17/18 14:19 02/17/18 14:19 Results - Labs 02/18/18 10:26 02/18/18 05:40 Abnormal lab results WBC 27.2 K/mcL (4.3-11.1) H 02/18/18 05:40 Neutrophils # 23.1 K/mcL (1.6-8.9) H 02/18/18 05:40 Monocytes # 2.0 K/mcL (0.0-1.3) H 02/18/18 05:40 PT 14.4 Seconds (9.4-12.1) H 02/18/18 05:40 Chloride 96 mEq/L (98-107) L 02/18/18 05:40 Carbon Dioxide 34 mEq/L (23-29) H 02/18/18 05:40 Glucose 284 mg/dL (70-105) H 02/18/18 05:40 POC Glucose 251 (58-89) H 02/18/18 05:34 Direct Bilirubin 0.3 mg/dL (0.0-0.2) H 02/17/18 15:35 Alkaline Phosphatase 106 Units/L (34-104) H 02/17/18 15:35 Urine Color Valentina (Yellow) A 02/17/18 15:57 Urine Clarity Turbid (Clear) A 02/17/18 15:57 Ur Specific [place] > 1.030 (1.010-1.025) H 02/17/18 15:57 Urine Protein 100 mg/dL (Neg-Trace) H 02/17/18 15:57 Urine Glucose (UA) 100 mg/dL (Normal) H 02/17/18 15:57 Urine Ketones Trace mg/dL (Negative) H 02/17/18 15:57 Urine Blood Large (Negative) H 02/17/18 15:57 Urine Bilirubin Small (Negative) H 02/17/18 15:57 Ur Leukocyte Esterase Large (Negative) H 02/17/18 15:57 Urine Microscopic RBC 5-15 per hpf (0-3) H 02/17/18 15:57 Urine Microscopic WBC TNTC per hpf (0-3) H 02/17/18 15:57 Ur Squamous Epith Cells Moderate per lpf (None-Few) H 02/17/18 15:57 Urine Yeast Many per hpf (None Seen) H 02/17/18 15:57 Ur Culture Indicated? YES (NO) A 02/17/18 15:57 Diabetes panel 02/18/18 Range/Units 05:40 Sodium 139 (136-145) mEq/L Potassium 3.7 (3.5-5.1) mEq/L Chloride 96 L (98-107) mEq/L Carbon Dioxide 34 H (23-29) mEq/L BUN 18 (8-23) mg/dL Creatinine 0.98 (0.70-1.30) mg/dL Glucose 284 H (70-105) mg/dL Calcium 9.4 (8.6-10.3) mg/dL Calcium panel 02/18/18 Range/Units 05:40 Calcium 9.4 (8.6-10.3) mg/dL Pituitary panel 02/18/18 Range/Units 05:40 Sodium 139 (136-145) mEq/L Potassium 3.7 (3.5-5.1) mEq/L Chloride 96 L (98-107) mEq/L Carbon Dioxide 34 H (23-29) mEq/L BUN 18 (8-23) mg/dL Creatinine 0.98 (0.70-1.30) mg/dL Glucose 284 H (70-105) mg/dL Calcium 9.4 (8.6-10.3) mg/dL Adrenal panel 02/18/18 Range/Units 05:40 Sodium 139 (136-145) mEq/L Potassium 3.7 (3.5-5.1) mEq/L Chloride 96 L (98-107) mEq/L Carbon Dioxide 34 H (23-29) mEq/L BUN 18 (8-23) mg/dL Creatinine 0.98 (0.70-1.30) mg/dL Glucose 284 H (70-105) mg/dL Calcium 9.4 (8.6-10.3) mg/dL All other labs normal. - Imaging CT scan - abdomen: report reviewed CT scan - pelvis: report reviewed Consult Discharge Plan - Plan Referrals: Bulmaro Negro MD [Primary Care Provider] -
[2018-02-18] MEDS ORDERED: Lisinopril 20 MG TABLET PO SCH (09:00)
[2018-02-18 09:02] LABS: ABG Base Excess 15 mEq/L (-2 to 3); ABG HCO3 42 mEq/L (21-27); ABG Oxygen Saturation 86 % (95-98); ABG PCO2 59 mmHg (35-45); ABG PH 7.46 pH Units (7.32-7.45); ABG PO2 50 mmHg (85-104); ABG TCO2 43 mEq/L (20-26)
--- NOTE | 2018-02-18 09:35 | Internal Med Progress Note ---
Date of Encounter: 02/18/18 Time of Encounter: 09:25 - Assessment and plan (1) Acute cholecystitis Current Visit: Yes Status: Acute Assessment and plan: As seen on CT abdomen/Pelvis Presenting with sepsis - NPO - Hold IV fluids - patient having signs of symptoms of fluid overload and some respiratory distress. Reassess need for IV fluids with frequent exam and vitals. - Continue Zosyn - Surgery consulted, recommendations apprecaited - Likely plan is for surgery - Hold Xarelto - likely will get Surgery, also having hematemesis Patient acuity requires closer monitoring, we request he transfer to but beds are full. > 40 min critical care time provided for patient. (2) Sepsis Current Visit: No Status: Resolved Assessment and plan: -Most likely secondary to acute cholecystitis - Other possible sources of infection include decub wound ulcer, cellulitis, UTI from chronic Adame catheter - Was admitted on 01/28 with sepsis from UTI and had + MRSA, + E faecalis. He was discharged to SNF and was to complete IV vanc through 02/13. 3 SIRS criteria on admission: Leukocytosis, fever 100.4 F, tachycardia - Lactic acid wnl - Follow-up blood cultures, urine culture, consult wound care - Surgery consulted, recommendations appreciated - Continue Zosyn/Vancomycin - ID was consulted on previous admission and will re-consult today. Qualifiers: Sepsis type: sepsis due to unspecified organism Qualified Code(s): A41.9 - Sepsis, unspecified organism (3) Acute respiratory failure Current Visit: No Status: Acute Assessment and plan: - Hypoxic in Urology office yesterday - History of COPD and HFpEF. CTA negative for PE/PNA/ pleural effusion - Review of prior discharge seems that patient was discharged on O2, possibly weaned to room air in that time at SNF - This could be acute on chronic respiratory failure - Lung exam shows decreased breath sounds with faint wheezing and poor air exchange poor inspiratory effort - Stat ABG showed hypoxia at SpO2 85% patient was not on oxygen, with CO2 58 level and compensated pH of 7.46, HCO3 41 patient likely retains CO2 at baseline. - Start Solumedrol - Hold IV fluids to prevent fluid overload and monitor hemodynamics - Starting bipap at bedside. 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 Qualifiers: Nausea presence: with nausea Qualified Code(s): K92.0 - Hematemesis (5) Bilateral lower extremity edema Current Visit: No Status: Acute Assessment and plan: Hold IV fluid for now. Monitor I/Os (6) Esophageal cancer Current Visit: No Status: Acute Assessment and plan: Recently diagnosed Patient follows hematology oncology Qualifiers: Malignant neoplasm of esophagus location: unspecified location Qualified Code(s): C15.9 - Malignant neoplasm of esophagus, unspecified (7) Metastatic disease Current Visit: No Status: Acute (8) Venous ulcer of right leg Current Visit: No Status: Acute (9) A-fib Current Visit: No Status: Chronic Assessment and plan: Hold Xarelto since patient having hematemesis and also may need surgery for cholecystitis Currently on Labetolol for rate control. Will add prn lopressor IV q6h Qualifiers: Atrial fibrillation type: chronic Qualified Code(s): I48.2 - Chronic atrial fibrillation (10) COPD (chronic obstructive pulmonary disease) Current Visit: No Status: Chronic Assessment and plan: With acute exacerbation and hypoxia Start Solu Medrol, Bipap Qualifiers: COPD type: unspecified COPD Qualified Code(s): J44.9 - Chronic obstructive pulmonary disease, unspecified (11) Decubitus ulcer Current Visit: No Status: Chronic Assessment and plan: Consult wound care Qualifiers: Pressure ulcer location: other site Pressure ulcer stage: stage 2 Qualified Code(s): L89.892 - Pressure ulcer of other site, stage 2 (12) Diabetes mellitus Current Visit: No Status: Chronic Assessment and plan: NPO for now Insulin sliding scale accuchecks q6H while NPO Qualifiers: Diabetes mellitus type: type 2 Diabetes mellitus intermediate card tender insulin use: without longterm use Diabetes mellitus complication status: with hyperglycemia Qualified Code(s): E11.65 - Type 2 diabetes mellitus with hyperglycemia (13) Hypertension Current Visit: No Status: Chronic Assessment and plan: IV hydralazine prn. Qualifiers: Hypertension type: essential hypertension Qualified Code(s): I10 - Essential (primary) hypertension (14) Heart failure Current Visit: Yes Status: Acute Assessment and plan: Hold IV fluids Consider Lasix if fluid status worsens. Strict I/O Continue bipap Qualifiers: Heart failure type: diastolic Heart failure chronicity: acute on chronic Qualified Code(s): I50.33 - Acute on chronic diastolic (congestive) heart failure (15) DVT prophylaxis Current Visit: No Status: Acute Assessment and plan: heparin 5,000 units BD sq - Subjective Interval history: Patient was admitted overnight after being tachycardic and hypoxic in a follow- up Urology office visit. He is a 72 year old male with esophageal cancer recently diagnosed 2 weeks ago. He has history of chronic Adame catheteratrial fibrillation on Xarelto, recent bacteremia 01/28/18 from UTI, bilateral leg cellulitis, CHF, COPD, DM. Taken to [facility] ED where workup showed CT abdomen with acute cholecystitis. A CTA chest was negative for PE, PNA, pleural effusions. Surgery was consulted for acute cholecystitis. This morning patient was noted by nursing to vomiting coffee ground emesis and symptoms did not improve with Zofran. He was also noted tachycardic and febrile overnight with Tmax 100.4 and HR ranged from 108-130 bpm, still requiring O2. - Constitutional Vitals: Temp Pulse Resp BP Pulse Ox 98.7 F 107 20 152/78 94 02/18/18 08:20 02/18/18 08:20 02/18/18 08:20 02/18/18 08:20 02/18/18 08:54 General appearance: Present: mild distress, A&O X 3, morbidly obese, answers questions appropriately Exam: - Head Head exam: Present: atraumatic, normocephalic - Eye Eye exam: Present: PERRL, conjuntiva pink, sclera anicteric Pupils: Present: PERRL - Neck Neck exam general surgery: Present: supple, trachea midline. Absent: lymphadenopathy - Respiratory Respiratory exam: Present: CTAB. Absent: accessory muscle use, rales, rhonchi, wheezes - Cardiovascular Cardiovascular exam: Present: RRR, +S1, +S2. Absent: diastolic murmur, gallop, rubs, systolic murmur - GI/Abdominal GI/Abdominal exam: Present: normal bowel sounds, soft, tenderness (Tenderness on RUQ), no peritoneal signs. Absent: distended - Extremities Exam Extremities exam: Present: warm, radial pulses palpable and symmetrical. Absent : calf tenderness, cyanotic, pedal edema Additional comments: Pt has rt lower leg skin redness/warmth. - Neurological Exam Neurological exam: Present: CN II-XII intact, oriented X3, no focal deficits. Absent: pronater drift, facial droop, speech deficit - Skin Skin exam: Present: dry, intact - Head Head exam: Present: atraumatic, normocephalic - Eye Eye exam: Present: PERRL, conjuntiva pink, sclera anicteric Pupils: Present: PERRL - Neck Neck exam general surgery: Present: supple, trachea midline. Absent: lymphadenopathy - Respiratory Respiratory exam: Present: CTAB. Absent: accessory muscle use, rales, rhonchi, wheezes - Cardiovascular Cardiovascular exam: Present: RRR, +S1, +S2. Absent: diastolic murmur, gallop, rubs, systolic murmur - GI/Abdominal GI/Abdominal exam: Present: normal bowel sounds, soft, tenderness, no peritoneal signs. Absent: distended - Extremities Exam Extremities exam: Present: pedal edema (1-2+), warm, radial pulses palpable and symmetrical. Absent: calf tenderness, cyanotic Additional comments: Right lower leg skin redness/warmth. - Neurological Exam Neurological exam: Present: CN II-XII intact, oriented X3, no focal deficits. Absent: pronater drift, facial droop, speech deficit - Skin Skin exam: Present: dry, erythema (bilateral lower extremities with venous stasis changes.), intact Internal Medicine: Result - Labs CBC & Chem 7: 02/18/18 05:40 02/18/18 05:40 Labs: Short CBC 02/18/18 Range/Units 05:40 WBC 27.2 H (4.3-11.1) K/mcL Hgb 13.0 (12.9-16.9) g/dL Hct 41.1 (37.5-50.1) % Plt Count 396 (140-400) K/mcL Neutrophils # 23.1 H (1.6-8.9) K/mcL BMP 02/18/18 05:40 Sodium 139 Potassium 3.7 Chloride 96 L Carbon Dioxide 34 H BUN 18 Creatinine 0.98 Glucose 284 H Calcium 9.4 - ABG Interpretation ABG results: ABG ABG pH 7.46 pH Units (7.32-7.45) H 02/18/18 08:54 ABG pCO2 59 mmHg (35-45) H 02/18/18 08:54 ABG pO2 50 mmHg (85-104) L* 02/18/18 08:54 ABG O2 Saturation 86 % (95-98) L 02/18/18 08:54 PT/INR, D-dimer PT 14.4 Seconds (9.4-12.1) H 02/18/18 05:40 Consult Discharge Plan - Plan Referrals: Bulmaro Negro MD [Primary Care Provider] -
[2018-02-18 10:37] LABS: Hematocrit 39.5 % (37.5-50.1); Hemoglobin 12.6 g/dL (12.9-16.9)
--- NOTE | 2018-02-18 11:02 | Infectious Disease Consult ---
Date of Encounter: 02/18/18 Time of Encounter: 11:02 Assessment and Plan (1) Sepsis Status: Resolved Assessment and plan: Patient meets sepsis with elevated WBC at 27, elevated heart rate, acute respiratory failure - Suspected source urinary tract, possible bacteremia - Initial lactic acid 1.2 - Blood cultures (02/17)2 collected results pending - Urine culture pending Continue IV vancomycin and Zosyn Qualifiers: Sepsis type: sepsis due to unspecified organism Qualified Code(s): A41.9 - Sepsis, unspecified organism (2) History of bacteremia Status: Acute Assessment and plan: Recent treatments MRSA bacteremia - Recent completed IV vancomycin on Thursday with removal of PICC line - 2 days of oral doxycycline completed - Likely source was MRSA and enterococcus, daily UTI. - MERLINE completed negative for vegetation. (3) Recurrent UTI Status: Acute (4) Complicated UTI (urinary tract infection) Status: Acute Assessment and plan: Chronic indwelling catheter secondary to incontinence with recurrent UTI - Recently treated for MRSA and enterococcus complicated UTI - Urinalysis concerning for continued complication of UTI - Continue vancomycin and Zosyn - Urine culture pending results (5) Acute respiratory failure with hypoxia and hypercapnia Status: Acute Assessment and plan: Baseline COPD, complicated by hypoxia and hypercapnia. - Decompensation and patient currently on BiPAP - CT of the chest performed with concerning findings of diffuse groundglass opacification. 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 Patient also has known Fong's esophagus. - Diagnosis 2 weeks ago - Follow with oncology - Denies any chemotherapy or radiation therapy. Qualifiers: Malignant neoplasm of esophagus location: unspecified location Qualified Code(s): C15.9 - Malignant neoplasm of esophagus, unspecified (7) Venous stasis Status: Acute Assessment and plan: Patient has bilateral venous stasis of the lower extremities - Increasing erythema, consider cellulitis superimposed on venous stasis - Recent completed IV vancomycin and was on oral doxycycline (8) Morbid obesity with BMI of 45.0-49.9, adult Status: Chronic Assessment and plan: Chronic management. (9) Leukocytosis Status: Acute Qualifiers: Leukocytosis type: unspecified Qualified Code(s): D72.829 - Elevated white blood cell count, unspecified (10) Acute cholecystitis Status: Acute Assessment and plan: Patient presents with elevated WBC, currently has symptoms of Nausea and vomiting with CT findings of Acute cholecystitis - Possible source for current SEPSIS - General surgery involved - Plans for cholecystectomy per general surgery. Infectious Disease HPI - Data of Consult Consult date: 02/18/18 Requesting Physician: Martha Avendano Primary Care Provider: Bulmaro Negro MD - Consult Narrative Reason for consult: Sepsis management History of present illness: Mr. Jimenez presented to [facility] on 02/17/2018 after recommendations from his urologist for tachycardia and low oxygen saturation. Consult to infectious disease for sepsis management. Mr. Jimenez 72yr old male with significant past oral history of esophageal cancer diagnosed 2 weeks ago(ulcerating mass in the lower third esophagus), Barretts esophagitis, dysphagia, atrial fibrillation, morbid obesity, COPD, HLD,HTN, chronic indwelling urinary catheter with recurrent UTIs, previous Proteus mirabilis (07/09) and MRSA (01/15) bacteremias, bilateral Knee joint replacements presented to the emergency department at the request of Dr. Goldberg. He had a recent hospitalization from 01/15/2018 through 01/28/2018 where he is found to have MRSA bacteremia and urine culture demonstrating MRSA and Enterococcus faecalis. He was treated with IV vancomycin and discharged with a PICC line with continuation of IV vancomycin. He was seen by infectious disease in the outpatient setting and last Thursday completed IV antibiotics and switched to oral doxycycline 100mg Q12hrs. Upon presentation to the emergency department vitals were collected, that demonstrated normal temperature, tachycardia, appropriate blood pressure, respiratory rate and oxygen saturation on 2 L nasal cannula oxygen. Initial laboratory findings demonstrate leukocytosis with WBC 19.3, segmented neutrophils 84.8%, neutrophil #16.3, chemistry panel demonstrated elevated bicarbonate 31, hyperglycemia elevated alk phosphatase at 106, direct bili of 0.3, normal indirect bili, stable renal function. Urine was collected demonstrating turbid albert urine with elevated specific gravity, urine protein of 100, urine glucose 100, trace ketones, large amount of urine and blood, small amount of urine bilirubin, large amount of leukocyte esterase, microscopic RBC of 5-15, microscopic WBC TNTC, moderate amount of urine squamous cells and urine yeast. Culture pending. Blood cultures were collected 2,. CT of the abdomen and pelvis and chest were performed with concerning findings of acute cholecystitis, no evidence of PE, re-demonstrating esophageal cancer and findings colonic diverticulosis. General surgery was consulted and plan to take him for cholecystectomy during this inpatient stay, He was started on IV Zosyn (02/17) for complicated UTI and after admission was started on IV vancomycin (02/18). Upon evaluation today he was afebrile (temp high 100.4), on BiPAP maintaining oxygen saturation greater than 94%, respirations were nonlabored inappropriate, blood pressure was appropriate and heart rate was irregularly irregular and elevated. Laboratory work demonstrates elevation of WBC to 27.2, segmented neutrophil at 84.8%, elevation neutrophil number to 23.1, stable chemistry panel, ABG demonstrates restaurant acidosis with metabolic compensation, gastric occult positive. Patient states that prior to admission he felt like he was improving had completed IV antibiotics on Thursday had his PICC line removed and was started on oral doxycycline after seeing infectious disease. He had taken his prescriptions on Thursday and Thursday denies any subjective fevers chills, abnormal sweating, change in vision, shortness of breath, chest pain or chest pressure, abdominal pains, nausea vomiting diarrhea constipation or abnormal swelling in his extremities. On Thursday he presented to his urologist to have a catheter exchange and at that appointment he says he was feeling very weak and was found to have an elevated heart rate which she did not know and low oxygen saturations which were unknown to the patient. He follows his physicians recommendation and presented to the emergency department. He states that he was supposed to have a PET scan and evaluation by oncology for his newly diagnosed esophageal cancer but had to cancel these appointments due to his admission to the hospital. Since being admitted to the hospital he denies any new symptoms but states that they put him on a BiPAP this morning because his oxygen saturations were low. He denies any current shortness of breath or subjective fevers chills or change in sweating since admission. However he has had nausea and vomiting overnight and today which she describes as dark in color. His was at bedside does mention that the redness is lower extremities has got a little worse overnight and that she noticed that he has been clammy. He continues to deny any pains or discomforts and is able to bend at his knees without discomfort or pain. CC: Martha Avendano Past Med Surg Social Fam HX - Past Medical History Medical history: atrial fibrillation, cancer, CHF, COPD, diabetes, GERD, hyperlipidemia, hypertension, malignancy, venous stasis Psychiatric history: anxiety - Past Surgical History Surgical History: appendectomy, herniorrhaphy, knee replacement - Social History Smoking Status: Never smoker Smokeless Tobacco Status: No Alcohol use: none Drug use: none - Family History Mother Living Status: Hx Family Cardiac Disorders: Yes (HTN) Father Living Status: Hx Family Cardiac Disorders: Yes (CHF, HTN) Hx Family Respiratory Disorders: No Hx Family Cancer: No Hx Family Endocrine Disorder: No Infectious Disease-CN:Meds Labetalol HCl 300 mg PO 0700,1200,2100 10/25/16 [History] Rivaroxaban [Xarelto] 20 mg PO QAM 10/25/16 [History] Carbidopa/Levodopa [Carbidopa-Levodopa 25-100 Tab] 1 tab PO HS 07/09/17 [History ] Cholecalciferol (Vitamin D3) [Vitamin D3] 5,000 unit PO QAM 07/09/17 [History] Furosemide [Lasix] 40 mg PO DAILY 01/15/18 [History] Lisinopril [Zestril] 40 mg PO DAILY 01/15/18 [History] Oxybutynin Chloride [Ditropan Xl] 15 mg PO DAILY 01/15/18 [History] Potassium Chloride 20 meq PO DAILY 01/15/18 [History] HYDROcodone/Acet 5/325 mg [Bigfoot 5-325 mg] 1 tab PO Q6HR PRN 7 Days #28 tablet 01/25/18 [Rx] Omeprazole [PriLOSEC] 40 mg PO BID #60 cap 01/25/18 [Rx] Doxycycline 100 mg PO BID 02/17/18 [History] Metformin HCl [Metformin HCl ER] 1,000 mg PO BID 02/18/18 [History] Pantoprazole Sodium [Protonix] 40 mg PO DAILY 02/18/18 [History] SitaGLIPtin [Januvia] 100 mg PO DAILY 02/18/18 [History] 3 Allergy/AdvReac Type Severity Reaction Status Date / Time No Known Allergies Allergy Verified 01/15/18 08:57 - Constitutional Constitutional: Present: fatigue, weakness. Absent: anorexia, chills, excessive sweating, headache(s), lethargy - EENT Eyes: Absent: blurry vision, pain Nose, mouth and throat: Absent: dizziness, sore throat - Cardiovascular Cardiovascular: Present: leg edema (chronic). Absent: chest pain, radiating pain, rapid heart rate, slow heart rate, syncope - Respiratory Respiratory: Absent: cough, dyspnea, excessive phlegm production - Gastrointestinal Gastrointestinal: Present: coffee ground emesis, dysphagia, nausea, vomiting. Absent: abdominal pain, loose stools, melena - Genitourinary Genitourinary: as per HPI - Integumentary Integumentary: Present: rash. Absent: skin ulcer, sores, wounds Exam - Constitutional Vitals: Temp Pulse Resp BP Pulse Ox 98.7 F 107 20 152/78 94 02/18/18 08:20 02/18/18 08:20 02/18/18 08:20 02/18/18 08:20 02/18/18 08:54 General appearance: morbidly obese Exam: General: Patient alert, awake, oriented 3, interactive, patient on BiPAP HEENT: Normocephalic, atraumatic, oral mucosa dry,, neck supple trachea midline no palpable lymphadenopathy, no thyromegaly. Chest: Symmetric bilateral correlating with respiratory effort, effort nonlabored. Cardiac: Irregularly irregular heart rate and rhythm, radial pulses 2+ bilateral Respiratory: Rhonchi appreciated left lower lung base, diffuse diminished intrauterine x-ray breath sounds with expiratory wheezing. Abdomen: Soft, morbidly obese, nontender, positive bowel sounds, midline hernia , no palpable masses appreciated on examination Extremities: Symmetric bilateral, bilateral lower studies demonstrate venous stasis with mild superimposed erythema, edema. No noticed ulcers or wounds. Coccyx has superficial erythema of the skin but no noted decubitus ulcer. Neurologic: No focal deficits appreciated on examination. Face symmetric, muscle strength symmetric bilateral upper and lower extremities. Infectious Disease CN: Results - Labs CBC & Chem 7: 02/18/18 10:26 02/18/18 05:40 Serology: Serology 02/18/18 02/18/18 02/18/18 Range/Units 10:26 08:54 05:40 WBC (4.3-11.1) K/mcL RBC (4.19-5.50) M/mcL Hgb 12.6 L (12.9-16.9) g/dL Hct 39.5 (37.5-50.1) % MCV (83.0-100.0) fL MCH (28.0-33.3) pg MCHC (31.6-35.5) g/dL RDW (11.5-14.5) % Plt Count (140-400) K/mcL MPV (9.4-12.4) fL Immature Gran % (0-4) % Seg Neutrophils % % Lymphocytes % % Monocytes % % Eosinophils % % Basophils % % Neutrophils # (1.6-8.9) K/mcL Lymphocytes # (0.6-4.6) K/mcL Monocytes # (0.0-1.3) K/mcL Eosinophils # (0.0-0.6) K/mcL Basophils # (0.0-0.2) K/mcL Platelet Estimate (Normal) PT (9.4-12.1) Seconds INR ABG pH 7.46 H (7.32-7.45) pH Units ABG pCO2 59 H (35-45) mmHg ABG pO2 50 L* (85-104) mmHg ABG HCO3 42 H (21-27) mEq/L ABG Total CO2 43 H (20-26) mEq/L ABG O2 Saturation 86 L (95-98) % ABG Base Excess 15 H (-2 to 3) mEq/L Inspired O2 21.0 (1-15=lpm fo70-273=%) Sodium 139 (136-145) mEq/L Potassium 3.7 (3.5-5.1) mEq/L Chloride 96 L (98-107) mEq/L Carbon Dioxide 34 H (23-29) mEq/L BUN 18 (8-23) mg/dL Creatinine 0.98 (0.70-1.30) mg/dL Est GFR ( Amer) > 60 (> 60) Est GFR (Non-Af Amer) > 60 (> 60) BUN/Creatinine Ratio 18 (6-26) Glucose 284 H (70-105) mg/dL POC Glucose (58-89) Calculated Osmolality 300 (280-300) Calcium 9.4 (8.6-10.3) mg/dL Gastric Occult Blood (Negative) 02/18/18 02/18/18 02/18/18 Range/Units 05:40 05:40 05:34 WBC 27.2 H (4.3-11.1) K/mcL RBC 4.63 (4.19-5.50) M/mcL Hgb 13.0 (12.9-16.9) g/dL Hct 41.1 (37.5-50.1) % MCV 88.8 (83.0-100.0) fL MCH 28.1 (28.0-33.3) pg MCHC 31.6 (31.6-35.5) g/dL RDW 13.8 (11.5-14.5) % Plt Count 396 (140-400) K/mcL MPV 10.2 (9.4-12.4) fL Immature Gran % 1.2 (0-4) % Seg Neutrophils % 84.8 % Lymphocytes % 6.3 % Monocytes % 7.3 % Eosinophils % 0.1 % Basophils % 0.3 % Neutrophils # 23.1 H (1.6-8.9) K/mcL Lymphocytes # 1.7 (0.6-4.6) K/mcL Monocytes # 2.0 H (0.0-1.3) K/mcL Eosinophils # 0.0 (0.0-0.6) K/mcL Basophils # 0.1 (0.0-0.2) K/mcL Platelet Estimate Normal (Normal) PT 14.4 H (9.4-12.1) Seconds INR 1.3 ABG pH (7.32-7.45) pH Units ABG pCO2 (35-45) mmHg ABG pO2 (85-104) mmHg ABG HCO3 (21-27) mEq/L ABG Total CO2 (20-26) mEq/L ABG O2 Saturation (95-98) % ABG Base Excess (-2 to 3) mEq/L Inspired O2 (1-15=lpm rh54-559=%) Sodium (136-145) mEq/L Potassium (3.5-5.1) mEq/L Chloride (98-107) mEq/L Carbon Dioxide (23-29) mEq/L BUN (8-23) mg/dL Creatinine (0.70-1.30) mg/dL Est GFR ( Amer) (> 60) Est GFR (Non-Af Amer) (> 60) BUN/Creatinine Ratio (6-26) Glucose (70-105) mg/dL POC Glucose 251 H (58-89) Calculated Osmolality (280-300) Calcium (8.6-10.3) mg/dL Gastric Occult Blood (Negative) 02/18/18 Range/Units 04:50 WBC (4.3-11.1) K/mcL RBC (4.19-5.50) M/mcL Hgb (12.9-16.9) g/dL Hct (37.5-50.1) % MCV (83.0-100.0) fL MCH (28.0-33.3) pg MCHC (31.6-35.5) g/dL RDW (11.5-14.5) % Plt Count (140-400) K/mcL MPV (9.4-12.4) fL Immature Gran % (0-4) % Seg Neutrophils % % Lymphocytes % % Monocytes % % Eosinophils % % Basophils % % Neutrophils # (1.6-8.9) K/mcL Lymphocytes # (0.6-4.6) K/mcL Monocytes # (0.0-1.3) K/mcL Eosinophils # (0.0-0.6) K/mcL Basophils # (0.0-0.2) K/mcL Platelet Estimate (Normal) PT (9.4-12.1) Seconds INR ABG pH (7.32-7.45) pH Units ABG pCO2 (35-45) mmHg ABG pO2 (85-104) mmHg ABG HCO3 (21-27) mEq/L ABG Total CO2 (20-26) mEq/L ABG O2 Saturation (95-98) % ABG Base Excess (-2 to 3) mEq/L Inspired O2 (1-15=lpm gs63-555=%) Sodium (136-145) mEq/L Potassium (3.5-5.1) mEq/L Chloride (98-107) mEq/L Carbon Dioxide (23-29) mEq/L BUN (8-23) mg/dL Creatinine (0.70-1.30) mg/dL Est GFR ( Amer) (> 60) Est GFR (Non-Af Amer) (> 60) BUN/Creatinine Ratio (6-26) Glucose (70-105) mg/dL POC Glucose (58-89) Calculated Osmolality (280-300) Calcium (8.6-10.3) mg/dL Gastric Occult Blood Positive A (Negative) Consult Discharge Plan - Plan Referrals: Bulmaro Negro MD [Primary Care Provider] - - Attending Attestation I examined this patient and my medical decision-making was reviewed with the Resident Physician. I agree with the documented findings, disposition and treatment plan as described except to the extent set forth below. This is an addendum to original report dictated by resident physician. Please refer to residents note for detail. Patient is a 72-year-old gentleman that is well-known to my service that has been in by us previously for complicated MRSA bacteremia. Patient had bacteremia with MRSA and is known to have prostatic knees bilaterally. There were no signs of seeding to any of his joints. MERLINE was negative for endocarditis. The plan was to treat with 4 weeks worth of IV antibiotics. Patient was treated with IV vancomycin from 01/15/2018 through February 13. Patient was seen by me in the clinic and her recommended 2 more weeks of oral doxycycline to finish a 6 week course altogether. PICC line was removed and patient was switched to oral doxycycline. Patient was doing well clinically. Patient also has a past medical history of esophageal cancer that was recently diagnosed and has not been treated yet. Patient went to the urologist today to change his Tomlinson catheter but was found to be tachycardic tachypneic and hypoxic. Patient was sent to the MRSA department for evaluation. Since arrival to the ED, MAXIMUM TEMPERATURE was 100.4 Fahrenheit, heart rate was as high as 142 bpm, respiratory rate with a maximum of 20 breaths per minute and presenting WBC of 19.3 thousand that jumped to 27,000 with neutrophilic predominance at about 85% no bands. Rest of the labs revealed normal kidney function, pyuria on UA and elevated blood sugar and positive Hemoccult. Patient had CT abdomen and pelvis and chest. CT chest was unremarkable for any acute process. A CT abdomen and pelvis revealed acute cholecystitis. Patient is going to surgery today. Patient was started empirically on vancomycin and Zosyn. On questioning the patient he denies any nausea or vomiting right now he denies any diarrhea he does have abdominal pain. Patient continues to have the hip pain that is chronic. Rest of the physical examination reveals systems unremarkable. Assessment and plan: 1. Sepsis secondary to cholecystitis 2. Cholecystitis 3. History of MRSA bacteremia Tx from 01/15 -02/13 with vancomycin followed by doxycycline 4. Recurrent UTI with indwelling tomlinson (most recent cultures E faecalis and MSRSA) currently patient is asymptomatic 5. Esophageal cancer Dx on 01/25/18; no treatment started yet
[2018-02-18] MEDS ORDERED: *HR* Labetalol 20 MG/4 ML SYRINGE IVP ONE (12:13)
[2018-02-18] MEDS ORDERED: Miconazole 2% ointment 114 GM TUBE TP SCH (12:15)
[2018-02-18 12:28] LABS: ABG Base Excess 10 mEq/L (-2 to 3); ABG HCO3 37 mEq/L (21-27); ABG Oxygen Saturation 98 % (95-98); ABG PCO2 55 mmHg (35-45); ABG PH 7.43 pH Units (7.32-7.45); ABG PO2 112 mmHg (85-104); ABG TCO2 38 mEq/L (20-26); Blood Gas Modality bipap; Blood Gas PEEP 6 cm H2O; Blood Gas Pressure Support 12 cm H2O; Blood Gas Respiration Rate 8
--- NOTE | 2018-02-18 13:18 | Gastroenterology Consult Note ---
<Jeovanny Clark - Last Filed: 02/18/18 19:23> Date of Encounter: 02/18/18 Time of Encounter: 13:14 - Assessment and plan (1) Hematemesis Current Visit: Yes Status: Acute Assessment and plan: He reported nausea and vomiting which have now resolved. Gastric occult blood test was positive and GI was consulted due to hematemesis. Patient had EGD 01/21/18 which revealed a medium sized hiatal hernia, Fong's esophagus, and malignant esophageal tumor in the lower third of the esophagus. HGB stable NPO diet Continue antiemetics and PPI drip Plan EGD tomorrow if HGB continues to drop Qualifiers: Nausea presence: with nausea Qualified Code(s): K92.0 - Hematemesis (2) Esophageal cancer Current Visit: Yes Status: Acute Assessment and plan: Patient had EGD 01/21/18 which revealed a medium sized hiatal hernia, Fong's esophagus, and malignant esophageal tumor in the lower third of the esophagus. Pathology revealed high grade malignant neoplasm compatible with poorly differentiated carcinoma. Repeat EGD tomorrow if HGB drops Qualifiers: Malignant neoplasm of esophagus location: lower third Qualified Code(s): C15.5 - Malignant neoplasm of lower third of esophagus (3) Acute cholecystitis Current Visit: Yes Status: Acute Assessment and plan: CT abd/ plv revealed acute cholecystitis. The patient underwent laparoscopic cholecystectomy this afternoon. Surgery following - Time Spent With Patient Total time spent is greater than 50% in coordination of care (as documented) at patient's floor/unit and/or counseling patient: GI History of Present Illness - Data of Consult Patient: known to practice within the last 3 years Consult date: 02/18/18 Requesting Physician: Martha Avendano - Consult Narrative Reason for consult: hematemesis, esophageal cancer, Barretts History of present illness: Mr. Jimenez is a 72 year old male with known PMH of esophageal cancer, Xarelto use for atrial fibrillation, CHF, diabetes, GERD, and chronic indwelling tomlinson cathter for urinary retention who was admitted with UTI and sepsis. Patient went to the urologist today to change his Tomlinson catheter but was found to be tachycardic, tachypneic, and hypoxic. He reported nausea and vomiting which have now resolved. CT abd/ plv revealed acute cholecystitis. His gastric occult blood test was positive and GI was consulted due to hematemesis. The patient underwent laparoscopic cholecystectomy this afternoon. Patient had EGD 01/21/18 which revealed a medium sized hiatal hernia, Fong's esophagus, and malignant esophageal tumor in the lower third of the esophagus. Pathology revealed high grade malignant neoplasm compatible with poorly differentiated carcinoma. EGD: esophageal cancer, known Barretts Past Med Surg Social Fam HX - Past Medical History Medical history: atrial fibrillation, cancer, CHF, COPD, diabetes, GERD, hyperlipidemia, hypertension, malignancy, venous stasis Psychiatric history: anxiety - Past Surgical History Surgical History: appendectomy, cholecystectomy, herniorrhaphy, knee replacement - Social History Smoking Status: Never smoker Smokeless Tobacco Status: No Alcohol use: none Drug use: none - Family History Mother Living Status: Hx Family Cardiac Disorders: Yes (HTN) Father Living Status: Hx Family Cardiac Disorders: Yes (CHF, HTN) Hx Family Respiratory Disorders: No Hx Family Cancer: No Hx Family Endocrine Disorder: No - Gastrointestinal Gastrointestinal: Present: abdominal pain, coffee ground emesis, hematemesis, nausea, vomiting. Absent: diarrhea, dyspepsia, melena - Constitutional Constitutional: fatigue, fever(s), no weight gain, no weight loss - EENT Nose, mouth and throat: Present: dysphagia. Absent: sore throat - Cardiovascular Cardiovascular ROS: Absent: chest pain, irregular heart rhythm - Respiratory Respiratory IM: Absent: cough, dyspnea - Genitourinary Genitourinary: Present: change in color, Urinary frequency - Neurological ROS Neurological GI: Present: weakness. Absent: confusion, dizziness - Hematologic/Lymphatic Hematologic/Lymphatic pediatric: Present: as per HPI. Absent: easy bleeding - Musculoskeletal Musculoskeletal ROS GI: Absent: back pain, joint swelling - Integumentary Integumentary GI: Absent: jaundice, pruritis - Psychiatric ROS Psychiatric GI: Absent: anxiety, depression - Endocrine Endocrine IM: Present: fatigue. Absent: cold intolerance, heat intolerance - Constitutional Vitals: Temp Pulse Resp BP Pulse Ox 97.1 F L 95 20 145/100 98 02/18/18 11:09 02/18/18 11:09 02/18/18 11:09 02/18/18 11:09 02/18/18 11:09 General appearance: Present: mild distress, A&O X 3, morbidly obese - Head Head exam: Present: atraumatic, normocephalic - Eye Eye exam: Present: sclera anicteric - ENT ENT exam: Present: mucous membranes dry, normal oropharynx - Neck Neck exam general surgery: Present: normal inspection, trachea midline - Respiratory Respiratory exam: Present: CTAB (on BiPap) - Cardiovascular Cardiovascular exam: Present: irregular rhythm, +S1, +S2 - GI/Abdominal GI/Abdominal exam: Present: normal bowel sounds, soft, tenderness (RUQ), no peritoneal signs - Rectal Rectal exam: Present: deferred - Extremities Exam Extremities exam: Present: warm. Absent: pedal edema - Neurological Exam Neurological exam: Present: oriented X3, no focal deficits - Psychiatric Psychiatric exam: Present: normal affect, normal mood - Skin Skin exam: Present: dry, intact, normal color, warm Results - Labs CBC & Chem 7: 02/18/18 16:25 02/18/18 05:40 Labs: Last Result Calcium 9.4 mg/dL (8.6-10.3) 02/18/18 05:40 Troponin I < 0.03 ng/mL (< 0.04) 02/17/18 15:35 Gastric Occult Blood Positive (Negative) A 02/18/18 04:50 Entire Visit Hgb 12.6 g/dL (12.9-16.9) L 02/18/18 10:26 Hct 39.5 % (37.5-50.1) 02/18/18 10:26 PT 14.4 Seconds (9.4-12.1) H 02/18/18 05:40 Total Bilirubin 0.8 mg/dL (0.3-1.0) 02/17/18 15:35 AST 16 Units/L (13-39) 02/17/18 15:35 ALT 16 Units/L (7-52) 02/17/18 15:35 Lipase 22 Units/L (11-82) 02/17/18 15:35 - ABG ABG results: ABG ABG pH 7.43 pH Units (7.32-7.45) 02/18/18 12:21 ABG pCO2 55 mmHg (35-45) H 02/18/18 12:21 ABG pO2 112 mmHg (85-104) H D 02/18/18 12:21 ABG O2 Saturation 98 % (95-98) 02/18/18 12:21 PT/INR, D-dimer PT 14.4 Seconds (9.4-12.1) H 02/18/18 05:40 Consult Discharge Plan - Plan Referrals: Bulmaro Negro MD [Primary Care Provider] - <FabiantraceyLinda - Last Filed: 02/18/18 19:33> Date of Encounter: 02/18/18 Time of Encounter: 18:00 - Time Spent With Patient Total time spent is greater than 50% in coordination of care (as documented) at patient's floor/unit and/or counseling patient: GI History of Present Illness - Data of Consult Requesting Physician: Martha Avendano - Consult Narrative History of present illness: Mr. Jimenez is a 72 year old male - Constitutional Vitals: Temp Pulse Resp BP Pulse Ox 97.9 F 105 20 92/34 97 02/18/18 16:22 02/18/18 16:22 02/18/18 16:22 02/18/18 16:22 02/18/18 15:54 Results - Labs CBC & Chem 7: 02/18/18 16:25 02/18/18 05:40 Labs: Last Result Calcium 9.4 mg/dL (8.6-10.3) 02/18/18 05:40 Troponin I < 0.03 ng/mL (< 0.04) 02/17/18 15:35 Gastric Occult Blood Positive (Negative) A 02/18/18 04:50 Entire Visit Hgb 11.1 g/dL (12.9-16.9) L D 02/18/18 16:25 Hct 35.3 % (37.5-50.1) L 02/18/18 16:25 PT 14.4 Seconds (9.4-12.1) H 02/18/18 05:40 Total Bilirubin 0.8 mg/dL (0.3-1.0) 02/17/18 15:35 AST 16 Units/L (13-39) 02/17/18 15:35 ALT 16 Units/L (7-52) 02/17/18 15:35 Lipase 22 Units/L (11-82) 02/17/18 15:35 - ABG ABG results: ABG ABG pH 7.43 pH Units (7.32-7.45) 02/18/18 12:21 ABG pCO2 55 mmHg (35-45) H 02/18/18 12:21 ABG pO2 112 mmHg (85-104) H D 02/18/18 12:21 ABG O2 Saturation 98 % (95-98) 02/18/18 12:21 PT/INR, D-dimer PT 14.4 Seconds (9.4-12.1) H 02/18/18 05:40 - Attending Attestation I examined this patient and my medical decision-making was reviewed with the Resident Physician. I agree with the documented findings, disposition and treatment plan as described except to the extent set forth below. Patient with known history of esophageal cancer now with the hematemesis. Patient is status post the gallbladder surgery today. At this point there is no active bleeding. Hemoglobin is stable. Recommendation: If further drop in hemoglobin tomorrow or more hematemesis then will consider EGD otherwise watchful waiting and follow H&H
[2018-02-18] MEDS ORDERED: Isovue-300 50 ML VIAL IVP ONE (13:35)
[2018-02-18] MEDS ORDERED: *HR* Propofol 200 MG/20 ML VIAL IVP ONE (13:43)
[2018-02-18] MEDS ORDERED: Neostigmine Methylsulfate 3 MG/3 ML SYRINGE ONE (13:43)
[2018-02-18] MEDS ORDERED: Ondansetron 4 MG/2 ML VIAL ONE (13:43)
[2018-02-18] MEDS ORDERED: *HR* FentaNYL (PF) 100 MCG/2 ML VIAL ONE (13:43)
[2018-02-18] MEDS ORDERED: Lidocaine -MPF 4% 5 ML AMPUL ONE (13:43)
[2018-02-18] MEDS ORDERED: Dexamethasone 4 MG/ML VIAL ONE ×2 (13:43)
[2018-02-18] MEDS ORDERED: *HR* Rocuronium Bromide 50 MG/5 ML VIAL ONE (13:43)
[2018-02-18] MEDS ORDERED: *HR* Succinylcholine 200 MG/10 ML VIAL IVP ONE (13:43)
[2018-02-18] MEDS ORDERED: Lidocaine -MPF 2% 2 ML VIAL ONE (13:43)
[2018-02-18] MEDS ORDERED: *HR* Midazolam HCl 2 MG/2 ML VIAL ONE (13:44)
--- NOTE | 2018-02-18 13:46 | Anesthesia Evaluation PreOp ---
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 Any Significant HX Other Medical History: Diabetes Type II, Other (Morbid Obesity) Anesthesia History: No Prior Anesthetic Complications Alcohol Use: none Drug use: none Medications and Allergies Labetalol HCl 300 mg PO 0700,1200,2100 10/25/16 [History] Rivaroxaban [Xarelto] 20 mg PO QAM 10/25/16 [History] Carbidopa/Levodopa [Carbidopa-Levodopa 25-100 Tab] 1 tab PO HS 07/09/17 [History ] Cholecalciferol (Vitamin D3) [Vitamin D3] 5,000 unit PO QAM 07/09/17 [History] Furosemide [Lasix] 40 mg PO DAILY 01/15/18 [History] Lisinopril [Zestril] 40 mg PO DAILY 01/15/18 [History] Oxybutynin Chloride [Ditropan Xl] 15 mg PO DAILY 01/15/18 [History] Potassium Chloride 20 meq PO DAILY 01/15/18 [History] HYDROcodone/Acet 5/325 mg [[place] 5-325 mg] 1 tab PO Q6HR PRN 7 Days #28 tablet 01/25/18 [Rx] Omeprazole [PriLOSEC] 40 mg PO BID #60 cap 01/25/18 [Rx] Doxycycline 100 mg PO BID 02/17/18 [History] Metformin HCl [Metformin HCl ER] 1,000 mg PO BID 02/18/18 [History] Pantoprazole Sodium [Protonix] 40 mg PO DAILY 02/18/18 [History] SitaGLIPtin [Januvia] 100 mg PO DAILY 02/18/18 [History] 3 Allergy/AdvReac Type Severity Reaction Status Date / Time No Known Allergies Allergy Verified 01/15/18 08:57 - Meds/Allergy Pre-op Review Medications Reviewed: Yes Allergies Reviewed: Yes Beta Blockers on Current Med List: No Anesthesia Results - Labs 02/18/18 10:26 02/18/18 05:40 - Imaging EKG: report reviewed (SR) Additional studies: EF 60% Anesthesia Exam O2 Sat Height 1.7 m Height 1.7 m Weight 136.5 kg Weight 128.82 kg O2 Sat by Pulse Oximetry 98 O2 Sat by Pulse Oximetry 94 O2 Sat by Pulse Oximetry 94 O2 Sat by Pulse Oximetry 93 O2 Sat by Pulse Oximetry 93 O2 Sat by Pulse Oximetry 94 O2 Sat by Pulse Oximetry 94 O2 Sat by Pulse Oximetry 96 O2 Sat by Pulse Oximetry 94 O2 Sat by Pulse Oximetry 96 O2 Sat by Pulse Oximetry 96 O2 Sat by Pulse Oximetry 97 Vital Signs Temp Pulse Resp BP Pulse Ox 97.7 F 119 19 143/118 97 02/17/18 14:19 02/17/18 14:19 02/17/18 14:19 02/17/18 14:19 02/17/18 14:19 Height: 5'7 Weight: 300 lbs NPO (# of Hours): MN Pain Scale: 0 - HEENT Pupil (Motor): Pupils equal, EOMI Mallampati: III Teeth: Normal Oral Opening: Less than or equal to 3 - FENCE ERECTOR SUPERVISOR LOC: Oriented FENCE ERECTOR SUPERVISOR Motor: Normal RUE, Normal LUE, Normal RLE, Normal LLE, Normal Face FENCE ERECTOR SUPERVISOR Sensory: Normal: RUE, LUE, RLE, LLE, Face - Cardiac Rhythm: Regular Murmur: None JVD: No Carotid Bruit: No - Pulmonary Breath Sounds: bilateral Clear Respiratory Effort: Symmetrical (on BiPap) Anesthesia Assess/Plan ASA Score: 4 (Sepsis AFib JULIO CESAR DM Morbid Obesity) Modified Hector Scale for Level of Consciousness: Cooperative, oriented, and tranquil Anesthetic Plan: General Monitoring Plan: Standard Monitors Recovery Plan: PACU (Discussed GA, agrees to proceed)
[2018-02-18] MEDS ORDERED: Acetaminophen IV 1,000 MG/100 ML INFUS..BTL ONE (14:33)
[2018-02-18] MEDS ORDERED: *HR* Promethazine 25 MG/ML VIAL IVP PRN ×2 (14:58→16:32)
[2018-02-18] MEDS ORDERED: *HR* PHENYLEPHRINE 1,000 MCG/10 ML SYRINGE IVP ONE (14:58)
--- NOTE | 2018-02-18 15:07 | Operative Note ---
Date of procedure: 02/18/18 Pre-op diagnosis: Cholecystitis Post-op diagnosis: same Procedure: Laparoscopic cholecystectomy with cholangiogram Anesthesia: CAS Surgeon: Johnathan Prasad Was there an assistant hvac mechanic present: No Estimated blood loss (cc): 50 Specimen: Gallbladder Disposition: PACU Procedure in Detail: After informed consent the patient was taken to the operating room. After adequate sedation anesthesia the abdomen was prepped and draped. A proper timeout was performed. Two towel clamps to place the umbilicus. A varies needle was placed at the umbilicus and a pneumo-peritoneum was created. A 12 mm incision was made at the umbilicus and a port was placed under direct visualization. An 5 mm incision was created in the left upper quadrant, followed by one in the right upper quadrant. There were 2 individual 5 mm cannulas then placed in the RUQ. A alligator clamp was then placed on the gallbladder was retracted anteriorly and cephalad. The infundibulum of the gallbladder was identified and the cystic duct was skeletonized. Once the structures were identified the cystic duct was clipped twice proximally and once distally. A cholangiogram was performed and found to have flow into the hepatic radicals and duodenum. Cystic duct was then transected. The gallbladder was then resected off the liver surface. The ICG was again utilized to identify any aberrant ductwork in the liver bed, and there was none noted. Once the gallbladder was fully resected from the liver surface, the liver was gently irrigated and suctioned dry. We ensured hemostasis prior to removing the gallbladder through the umbilical port. Pneumoperitoneum was then evacuated. The 12 mm cannula site was closed with a 0-Vicryl suture in figure- of-eight fashion. The port sites were injected with half percent Marcaine 30 mL. The skin was closed with 4-0 Vicryl suture and Dermabond. All instrument counts and needle counts were correct at the end of the case. The pt was taken to recovery in stable condition.
[2018-02-18] MEDS ORDERED: *HR* Morphine 10 MG/ML VIAL ONE (15:12)
[2018-02-18] MEDS: *HR* HYDROmorphone (PF) 1 MG/ML SYRINGE IVP PRN ×2 (15:25→15:35)
--- NOTE | 2018-02-18 15:48 | Anesthesia Evaluation Post Op ---
Date of Encounter: 02/18/18 Time of Encounter: 16:00 - Vital Signs Vital Signs: Vital Signs/O2 Sat/Glucose, Most Current Temp Pulse Resp BP Pulse Ox 02/18/18 15:34 105 17 118/81 98 02/18/18 15:24 107 17 130/95 98 02/18/18 15:14 97.5 F L 102 26 128/72 97 - Lungs Lungs: Clear Ascult./Percussion - Airway Airway: Non-obstructed - Cardiovascular Regular Rate - Mental Status Mental Status: Alert & Oriented, Answers Appropriately - Pain Pain Scale: 0 - Nausea Vomiting Nausea Vomiting: Not Present - Hydration Hydration: NPO - Discharge PostOp Status: Transfer Patient to floor
[2018-02-18] MEDS ORDERED: Levalbuterol Neb 1.25 MG/3 ML IH SCH (16:00)
[2018-02-18] MEDS ORDERED: MethylPREDNISolone 40 MG/ML VIAL IVP SCH (16:00)
[2018-02-18 16:41] LABS: Hematocrit 35.3 % (37.5-50.1); Hemoglobin 11.1 g/dL (12.9-16.9)
--- NOTE | 2018-02-18 16:42 | Electrocardiograph Report ---
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
[2018-02-18] MEDS: Miconazole 2% ointment 114 GM TUBE TP SCH (20:09)
[2018-02-18 20:11] LABS: ABG Base Excess 7 mEq/L (-2 to 3); ABG HCO3 35 mEq/L (21-27); ABG Oxygen Saturation 99 % (95-98); ABG PCO2 62 mmHg (35-45); ABG PH 7.35 pH Units (7.32-7.45); ABG PO2 152 mmHg (85-104); ABG TCO2 36 mEq/L (20-26)
[2018-02-18] MEDS: Levalbuterol Neb 1.25 MG/3 ML IH SCH (22:43)
[2018-02-18 22:53] LABS: Hematocrit 34.7 % (37.5-50.1); Hemoglobin 10.8 g/dL (12.9-16.9)
[2018-02-19] MEDS: Insulin LISPRO 300 UNITS/3 ML VIAL SQ SCH ×4 (00:07→20:13)
[2018-02-19] MEDS: Piperacillin/Tazobactam 3.375 GM in 0.9 % Sodium Chloride Mini Bag 100 ML IVPB SCH ×3 (00:31→17:43)
[2018-02-19] MEDS: MethylPREDNISolone 40 MG/ML VIAL IVP SCH ×3 (00:31→17:43)
[2018-02-19] MEDS: Levalbuterol Neb 1.25 MG/3 ML IH SCH ×4 (04:06→22:08)
[2018-02-19 04:28] LABS: Basophils % 0.2 %; Eosinophils % 0.2 %; Hematocrit 33.5 % (37.5-50.1); Hemoglobin 10.3 g/dL (12.9-16.9); Immature Granulocytes % 0.7 % (0-4); Lymphocytes # 0.9 K/mcL (0.6-4.6); Lymphocytes % 4.5 %; Mean Corpuscular HGB Conc 30.7 g/dL (31.6-35.5); Mean Corpuscular Hemoglobin 28.2 pg (28.0-33.3); Mean Corpuscular Volume 91.8 fL (83.0-100.0); Mean Platelet Volume 10.5 fL (9.4-12.4); Monocytes # 0.9 K/mcL (0.0-1.3); Monocytes % 4.4 %; Neutrophils # 17.2 K/mcL (1.6-8.9); Platelet Count 342 K/mcL (140-400); Red Blood Count 3.65 M/mcL (4.19-5.50); Red Cell Distribution Width 14.1 % (11.5-14.5)
[2018-02-19 04:49] LABS: Calcium 8.5 mg/dL (8.6-10.3); Potassium 3.6 mEq/L (3.5-5.1)
[2018-02-19] MEDS: 0.9 % Sodium Chloride 500 ML IVC SCH ×2 (08:07→17:33)
[2018-02-19] MEDS ORDERED: *HR* Propofol 200 MG/20 ML VIAL IVP ONE (08:13)
[2018-02-19] MEDS ORDERED: Lidocaine -MPF 2% 2 ML VIAL ONE (08:30)
[2018-02-19] MEDS ORDERED: Lisinopril 20 MG TABLET PO SCH (09:00)
[2018-02-19] MEDS ORDERED: Aminoglycoside Consult 1 EACH MC ONE (09:25)
[2018-02-19] MEDS ORDERED: Tetracaine/Benzocaine/Butamben 200MG/SPRAY (100SPY/BOT) MM ONE (09:35)
--- NOTE | 2018-02-19 10:49 | Anesthesia Evaluation Post Op ---
Date of Encounter: 02/19/18 Time of Encounter: 09:55 - Vital Signs Vital Signs: Vital Signs/O2 Sat/Glucose, Most Recent Temp Pulse Resp BP Pulse Ox 97.7 F 101 20 107/73 97 02/19/18 08:04 02/19/18 08:04 02/19/18 08:04 02/19/18 08:04 02/19/18 08:04 Blood Glucose* 208 - Lungs Lungs: Rhonchi (per baseline) - Airway Airway: Non-obstructed - Cardiovascular Regular Rate, Baseline Rhythm - Mental Status Mental Status: Asleep with brisk response to light stimulation, Baseline Status - Pain Pain Scale: 0 Pain Scale used: Numeric (1 - 10) - Nausea Vomiting Nausea Vomiting: Not Present - Hydration Hydration: NPO Notes: 02/19/18 10:48 naac - Discharge PostOp Status: Transfer Patient to floor
[2018-02-19 10:54] LABS: Hematocrit 33.4 % (37.5-50.1); Hemoglobin 10.1 g/dL (12.9-16.9)
--- NOTE | 2018-02-19 11:00 | General Surgery Progress Note ---
Date of Encounter: 02/19/18 Time of Encounter: 10:45 - Assessment and Plan (1) Acute cholecystitis Current Visit: Yes Status: Acute POD #1 from a laparoscopic cholecystectomy with Dr. Prasad for a necrotic gallbladder Continue DENNY drain 1 Continue IV antibiotics- Zosyn for gallbladder Start clear liquid diet today May advance patient as tolerated to his home diet Supportive care and pain control Incentive spirometer every 1 hour while awake Increase activity as tolerated (2) Esophageal cancer Current Visit: Yes Status: Acute Patient is status post an EGD with Dr. Rodriguez this morning Qualifiers: Malignant neoplasm of esophagus location: lower third Qualified Code(s): C15.5 - Malignant neoplasm of lower third of esophagus Subjective Patient reports: no new complaints, afebrile, other (Patient is s/p EGD with Dr. Wright this morning and is lethargic but answering questions appropriately) Objective Vital Signs - Last 8 Hours Temp Pulse Resp BP Pulse Ox 02/19/18 08:04 97.7 F 101 20 107/73 97 02/19/18 06:40 97.7 F 89 20 120/82 95 02/19/18 04:06 16 97 02/19/18 03:29 97.6 F 78 17 120/66 98 Intake and Output 02/18/18 02/19/18 02/19/18 23:59 07:59 15:59 Intake Total 250 / 250 350 / 350 0 / 0 Output Total 215 / 215 390 / 390 400 / 400 Balance 35 / 35 -40 / -40 -400 / -400 Intake: IV Fluids 250 / 250 350 / 350 Zosyn 3.375 GM In 0.9 % Sodium 100 / 100 Chloride (Mini-Bag +) 100 ML @ 25 mls/hr IVPB Q8HR [facility] Rx#: [id number] Vancocin 1,000 MG In 0.9 % 250 / 250 250 / 250 Sodium Chloride 250 ML @ 167 mls/hr IVPB Q12H [facility] Rx#: [id number] Oral 0 / 0 0 / 0 Output: Urine 0 / 0 200 / 200 Catheter 200 / 200 125 / 125 350 / 350 Wound Drainage 65 / 65 50 / 50 Right Lower Abdomen 65 50 / 50 Other: Meal npo Percent of Meal Consumed 0% Weight 134.8 kg Blood Glucose* 235 208 Patient Weight 02/19/18 23:59 Weight 134.8 kg - General physical appearance well developed, well nourished, no distress, chronically ill, obese - Eyes normal ocular movement - ENT dry mucosa, atraumatic, normocephalic - Neck Neck exam: trachea midline - Respiratory normal respiratory effort, clear to auscultation, other (diminished bibasilar bases) - Cardiovascular Cardiovascular exam: Present: RRR - Abdomen Abdomen: Present: bowel sounds present, soft, tender (minimal, expected post- operative tenderness), wound (DENNY drain to bulb suction with serousang. drainage noted (115ml noted since midnight)) - Incision Incision: Present: clean and dry, intact - Genitourinary other (tomlinson catheter to SD) - Neurologic CN 2-12 grossly intact - Musculoskeletal other (severe deconditioning) - Psychiatric oriented to person, oriented to place, speech is normal - Labs 02/19/18 10:30 02/19/18 03:46 Diabetes panel 02/19/18 Range/Units 03:46 Sodium 141 (136-145) mEq/L Potassium 3.6 (3.5-5.1) mEq/L Chloride 101 (98-107) mEq/L Carbon Dioxide 32 H (23-29) mEq/L BUN 41 H (8-23) mg/dL Creatinine 1.54 H (0.70-1.30) mg/dL Glucose 207 H (70-105) mg/dL Calcium 8.5 L (8.6-10.3) mg/dL Calcium panel 02/19/18 Range/Units 03:46 Calcium 8.5 L (8.6-10.3) mg/dL Pituitary panel 02/19/18 Range/Units 03:46 Sodium 141 (136-145) mEq/L Potassium 3.6 (3.5-5.1) mEq/L Chloride 101 (98-107) mEq/L Carbon Dioxide 32 H (23-29) mEq/L BUN 41 H (8-23) mg/dL Creatinine 1.54 H (0.70-1.30) mg/dL Glucose 207 H (70-105) mg/dL Calcium 8.5 L (8.6-10.3) mg/dL Adrenal panel 02/19/18 Range/Units 03:46 Sodium 141 (136-145) mEq/L Potassium 3.6 (3.5-5.1) mEq/L Chloride 101 (98-107) mEq/L Carbon Dioxide 32 H (23-29) mEq/L BUN 41 H (8-23) mg/dL Creatinine 1.54 H (0.70-1.30) mg/dL Glucose 207 H (70-105) mg/dL Calcium 8.5 L (8.6-10.3) mg/dL - VTE Documentation of Mechanical Device: Venous foot pump, device Consult Discharge Plan - Plan Referrals: Bulmaro Negro MD [Primary Care Provider] - 02/25/18 3:00 pm Suzanne Posadas CNP [Advanced Practice Nurse] - 02/26/18 8:00 am - Attending Attestation For this encounter, I have reviewed the RESIDENTIAL TREATMENT COUNSELOR or PA documentation, treatment plan, and medical decision making; and I have had face to face time with this patient.
[2018-02-19] MEDS: Miconazole 2% ointment 114 GM TUBE TP SCH ×2 (11:03→20:33)
--- NOTE | 2018-02-19 11:03 | Infectious Disease Progress No ---
Date of Encounter: 02/19/18 Time of Encounter: 11:00 - Assessment and Plan (1) Sepsis Current Visit: No Status: Resolved The patient had two SIRS criteria. Likely secondary to acute cholecystitis. Improved. WBC trending down. Tachycardia improved. Blood cultures drawn 02/17/18 are NGTD x 2 sets. Qualifiers: Sepsis type: methicillin resistant Staphylococcus aureus Qualified Code(s) : A41.02 - Sepsis due to Methicillin resistant Staphylococcus aureus (2) Acute cholecystitis Current Visit: Yes Status: Acute Causative organism unclear, but likely gram negatives. CT scan of the abdomen showed findings consistent with acute cholecystitis. General surgery consulted and following. Status post lap cholecystectomy with cholangiogram 02/18/[address] Prasad. Discussed with [facility] [employer], who states the gallbladder was leaking bile. Likely the source of the patient's sepsis. Continue Zosyn 3.375 grams IV Q8H for now. Duration of treatment depends on the clinical picture. Monitor renal function and dose-adjust antibiotics. Wound care per the surgery team. (3) Candiduria Current Visit: Yes Status: Acute Urine culture positive for Yeast. No indication to treat. (4) History of bacteremia Current Visit: Yes Status: Acute Blood cultures drawn 01/15/18 were positive 2/2 sets for MRSA. Repeat blood cultures drawn 01/16/18 were negative x 2 sets. Treated with 4 weeks of IV Vancomycin and was transitioned to PO doxycycline on Thursday. Blood cultures drawn 02/17/18 are NGTD x 2 sets. Discontinue Vancomycin. Re-start doxycycline 100mg PO BID to complete the 14 day course previously outlined by the outpatient ID clinic. Monitor renal function and dose-adjust antibiotics. (5) Acute kidney injury Current Visit: No Status: Acute Etiology unclear, but consider HESHAM vs. nephrotoxic medications. Will discontinue Vancomycin as above. Continue to trend. Dose-adjust antibiotics. Avoid nephrotoxins as able. (6) Acute respiratory failure with hypoxia and hypercapnia Current Visit: No Status: Acute Required BIPAP post-op and transfer to . Improved. On Simple face mask at this time. Further management per the primary team. (7) Chronic indwelling Adame catheter Current Visit: No Status: Chronic (8) Complicated UTI (urinary tract infection) Current Visit: Yes Status: Acute Urine culture negative for bacteria, only yeast. No indication to treat at this time. 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 Scheduled to follow up with [facility]. Not currently on any treatment. Qualifiers: Malignant neoplasm of esophagus location: lower third Qualified Code(s): C15.5 - Malignant neoplasm of lower third of esophagus (10) Hematemesis Current Visit: Yes Status: Acute Likely multifactorial. GI consulted. Status post EGD this morning. Await findings. Qualifiers: Nausea presence: with nausea Qualified Code(s): K92.0 - Hematemesis (11) Morbid obesity with BMI of 45.0-49.9, adult Current Visit: No Status: Chronic (12) Stasis dermatitis of both legs Current Visit: No Status: Chronic (13) Diabetes mellitus Current Visit: No Status: Chronic Recommend aggressive glucose control and monitoring. Management per the primary team. 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 No acute events noted overnight. Status post lap annie 02/18/[address] Prasad. Status post EGD this morning. Patient awake and conversant, but somewhat disoriented from sedation. Reports minimal abdominal pain. Denies chest pain, shortness of breath, or cough. Denies nausea or vomiting. Reports last BM was 3-4 days ago. Adame catheter remains patent draining clear yellow urine. Denies oral thrush or new skin lesions. at bedside. Infect Dis PN-Objective Data - Labs CBC & Chem 7: 02/19/18 10:30 02/19/18 03:46 Labs: Laboratory Results - last 24 hr 02/18/18 02/18/18 02/18/18 11:04 12:21 16:25 WBC RBC Hgb 11.1 L D Hct 35.3 L MCV MCH MCHC RDW Plt Count MPV Immature Gran % Seg Neutrophils % Lymphocytes % Monocytes % Eosinophils % Basophils % Neutrophils # Lymphocytes # Monocytes # Eosinophils # Basophils # Sample Site ABG pH 7.43 ABG pCO2 55 H ABG pO2 112 H D ABG HCO3 37 H ABG Total CO2 38 H ABG O2 Saturation 98 ABG Base Excess 10 H Jonathan Test Respiration Rate 8 O2 Delivery Device Blood Gas Modality bipap Inspired O2 40.0 PEEP 6 Pressure Support 12 Sodium Potassium Chloride Carbon Dioxide BUN Creatinine Est GFR ( Amer) Est GFR (Non-Af Amer) BUN/Creatinine Ratio Glucose POC Glucose 260 H Calculated Osmolality Calcium 02/18/18 02/18/18 02/18/18 16:25 20:07 22:39 WBC RBC Hgb 10.8 L Hct 34.7 L MCV MCH MCHC RDW Plt Count MPV Immature Gran % Seg Neutrophils % Lymphocytes % Monocytes % Eosinophils % Basophils % Neutrophils # Lymphocytes # Monocytes # Eosinophils # Basophils # Sample Site L Radial ABG pH 7.35 ABG pCO2 62 H ABG pO2 152 H ABG HCO3 35 H ABG Total CO2 36 H ABG O2 Saturation 99 H ABG Base Excess 7 H Jonathan Test Positive Respiration Rate O2 Delivery Device BiPAP Blood Gas Modality Inspired O2 50.0 PEEP Pressure Support Sodium Potassium Chloride Carbon Dioxide BUN Creatinine Est GFR ( Amer) Est GFR (Non-Af Amer) BUN/Creatinine Ratio Glucose POC Glucose 263 H Calculated Osmolality Calcium 02/19/18 02/19/18 02/19/18 03:46 03:46 10:30 WBC 19.1 H RBC 3.65 L Hgb 10.3 L 10.1 L Hct 33.5 L 33.4 L MCV 91.8 MCH 28.2 MCHC 30.7 L RDW 14.1 Plt Count 342 MPV 10.5 Immature Gran % 0.7 Seg Neutrophils % 90.0 Lymphocytes % 4.5 Monocytes % 4.4 Eosinophils % 0.2 Basophils % 0.2 Neutrophils # 17.2 H Lymphocytes # 0.9 Monocytes # 0.9 Eosinophils # 0.0 Basophils # 0.0 Sample Site ABG pH ABG pCO2 ABG pO2 ABG HCO3 ABG Total CO2 ABG O2 Saturation ABG Base Excess Jonathan Test Respiration Rate O2 Delivery Device Blood Gas Modality Inspired O2 PEEP Pressure Support Sodium 141 Potassium 3.6 Chloride 101 Carbon Dioxide 32 H BUN 41 H Creatinine 1.54 H Est GFR ( Amer) 54 L Est GFR (Non-Af Amer) 45 L BUN/Creatinine Ratio 27 H Glucose 207 H POC Glucose Calculated Osmolality 308 H Calcium 8.5 L Cultures: Serology 02/18/18 Range/Units 04:50 Gastric Occult Blood Positive A (Negative) Exam - Constitutional Vitals: Temp Pulse Resp BP Pulse Ox 97.7 F 101 20 107/73 97 02/19/18 08:04 02/19/18 08:04 02/19/18 08:04 02/19/18 08:04 02/19/18 08:04 General appearance: cooperative, no acute distress, obese - Head Head exam: Present: atraumatic, normal inspection, normocephalic - Eye Eye exam: Present: EOMI, normal appearance, PERRL Pupils: Present: normal accommodation - ENT ENT exam: Present: mucous membranes dry - Neck Neck exam: Present: normal inspection - Respiratory Respiratory exam: Present: CTAB. Absent: rales, respiratory distress, rhonchi, wheezes - Cardiovascular Cardiovascular exam: Present: RRR, +S1, +S2 - GI/Abdominal GI/Abdominal exam: Present: distended (obese), normal bowel sounds, soft, tenderness (RUQ surgical site) Additional comments: DENNY drain noted to the RUQ. Surgical stab sites with dermabond intact and edges well-approximated without redness, warmth, or drainage. - Extremities Exam Extremities exam: Present: pedal edema (1+ BLE). Absent: joint swelling, tenderness Additional comments: BLE venous stasis dermatitis noted. - Neurological Exam Neurological exam: Present: alert, oriented X3, no focal deficits - Psychiatric Psychiatric exam: Present: normal affect, normal mood - Skin Skin exam: Present: dry, intact, normal color, warm - VTE Documentation of Mechanical Device: Venous foot pump, device Consult Discharge Plan - Plan Referrals: Bulamro Negro MD [Primary Care Provider] - 02/25/18 3:00 pm Andrea Hernandez MD [Partnered Physician] - 02/25/19 11:45 am (Please arrive 15 minutes early to appointment.) Suzanne Posadas CNP [Advanced Practice Nurse] - 02/26/18 8:00 am Jovani Goldberg MD [Partnered Physician] - 03/19/18 2:15 pm - Attending Attestation I examined this patient and my medical decision-making was reviewed with the Resident Physician. I agree with the documented findings, disposition and treatment plan as described except to the extent set forth below.
[2018-02-19] MEDS ORDERED: D5% in Water 1,000 ML IVC PRN (16:16)
[2018-02-19] MEDS ORDERED: *HR* Dextrose 50 % in Water (Syg) 50 ML SYRINGE IVP PRN (16:16)
[2018-02-19] MEDS ORDERED: Dextrose Gel 15 GM/37.5 ML TUBE PO PRN ×2 (16:16)
[2018-02-19 17:07] LABS: Hematocrit 33.8 % (37.5-50.1); Hemoglobin 10.3 g/dL (12.9-16.9)
--- NOTE | 2018-02-19 17:40 | Internal Med Progress Note ---
Date of Encounter: 02/19/18 Time of Encounter: 17:34 - Assessment and plan (1) Acute cholecystitis Current Visit: Yes Status: Acute Assessment and plan: As seen on CT abdomen/Pelvis Status post Lap annie 02/18 - doing well Surgery team following, recommendations appreciated Continue antibiotics Advance diet as tolerated (2) Sepsis Current Visit: No Status: Resolved Assessment and plan: -Most likely secondary to acute cholecystitis - Other possible sources of infection include decub wound ulcer, cellulitis, UTI from chronic Adame catheter - Was admitted on 01/28 with sepsis from UTI and had + MRSA, + E faecalis. He was discharged to SNF and was to complete IV vanc through 02/13. 3 SIRS criteria on admission: Leukocytosis, fever 100.4 F, tachycardia - Lactic acid wnl on admission - Follow-up blood cultures, urine culture, consult wound care - S/P lap appendectomy 02/18 - most ikely source of infection - Continue Zosyn, Vanc DC'd - ID following Qualifiers: Sepsis type: sepsis due to unspecified organism Qualified Code(s): A41.9 - Sepsis, unspecified organism (3) Acute respiratory failure Current Visit: No Status: Acute Assessment and plan: - Hypoxic in Urology office yesterday - History of COPD and HFpEF. CTA negative for PE/PNA/ pleural effusion - Review of prior discharge seems that patient was discharged on O2, possibly weaned to room air in that time at SNF - This could be acute on chronic respiratory failure - Lung exam shows decreased breath sounds with faint wheezing and poor air exchange poor inspiratory effort - InitialABG showed hypoxia at SpO2 85% patient was not on oxygen, with CO2 58 level and compensated pH of 7.46, HCO3 41 patient likely retains CO2 at baseline. 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 No such events since then. Hemodynamically stable, normotensive, H&H stable at 10.1-10.3 Qualifiers: Nausea presence: with nausea Qualified Code(s): K92.0 - Hematemesis (5) Candiduria Current Visit: Yes Status: Acute Assessment and plan: Hold IV fluid for now. Monitor I/Os (6) Esophageal cancer Current Visit: Yes Status: Acute Assessment and plan: Recently diagnosed Patient follows hematology oncology Patient unable to get to this upcoming appointment because of this hospital admission Will consult Oncology Qualifiers: Malignant neoplasm of esophagus location: lower third Qualified Code(s): C15.5 - Malignant neoplasm of lower third of esophagus (7) Metastatic disease Current Visit: No Status: Acute Assessment and plan: Consult Oncology Patient was going to have outpatient appointment but due to this hospital admission is not able to be seen. (8) A-fib Current Visit: No Status: Chronic Assessment and plan: Xarelto held; EGD 02/19 showed esophageal cancer had recent bleed (but not actively bleeding at this point) Resume labetolol (with hold paremeters) since patient BP improved and also tachycardic Continue prn lopressor IV q6h Qualifiers: Atrial fibrillation type: chronic Qualified Code(s): I48.2 - Chronic atrial fibrillation (9) COPD (chronic obstructive pulmonary disease) Current Visit: No Status: Chronic Assessment and plan: With acute exacerbation and hypoxia Continue Solu Medrol, Xopenex Q6H Qualifiers: COPD type: unspecified COPD Qualified Code(s): J44.9 - Chronic obstructive pulmonary disease, unspecified (10) Decubitus ulcer Current Visit: No Status: Chronic Assessment and plan: Consult wound care Qualifiers: Pressure ulcer location: other site Pressure ulcer stage: stage 2 Qualified Code(s): L89.892 - Pressure ulcer of other site, stage 2 (11) Diabetes mellitus Current Visit: No Status: Chronic Assessment and plan: Advance diet per surgery recommendations currently CLD, ISS, accuchecks AC and HS Qualifiers: Diabetes mellitus type: type 2 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 Holding Labetolol, lisinopril because of low BP. Lisinopril also needs renal improvement too Qualifiers: Hypertension type: essential hypertension Qualified Code(s): I10 - Essential (primary) hypertension (13) Heart failure Current Visit: Yes Status: Acute Assessment and plan: Patient does not have acute decompensation. He does require fluids today for SUNI, will give cautiously 1 L. Qualifiers: Heart failure type: diastolic Heart failure chronicity: chronic Qualified Code(s): I50.32 - Chronic diastolic (congestive) heart failure (14) Acute renal failure Current Visit: No Status: Acute Assessment and plan: Possible dye, medication, sepsis related. Give IV fluids 1 L cautiously as patient does get fluid overloaded easily, currently advancing diet encouraging PO intake. Recheck in AM If worsens, will need Nephrology consult. (15) DVT prophylaxis Current Visit: No Status: Acute Assessment and plan: SCDs - Subjective Interval history: 02/18: laparoscopic cholecystectomy 02/19: EGD done today redemonstrated a large ulcerating mass with no active bleeding but did show evidence of recent bleeding. - Constitutional Vitals: Temp Pulse Resp BP Pulse Ox 98.4 F 108 18 129/80 94 02/19/18 16:07 02/19/18 16:11 02/19/18 16:07 02/19/18 16:07 02/19/18 16:07 General appearance: Present: A&O X 3, morbidly obese, no acute distress, answers questions appropriately Exam: Patient appearas better than yesterday, no longer in distress, no longer lethargic. - Head Head exam: Present: atraumatic, normocephalic - Eye Eye exam: Present: PERRL, conjuntiva pink, sclera anicteric Pupils: Present: PERRL - Neck Neck exam general surgery: Present: supple, trachea midline. Absent: lymphadenopathy - Respiratory Respiratory exam: Present: decreased breath sounds. Absent: accessory muscle use, rales, rhonchi, wheezes - Cardiovascular Cardiovascular exam: Present: +S1, +S2, tachycardia. Absent: diastolic murmur, gallop, rubs, systolic murmur - GI/Abdominal GI/Abdominal exam: Present: normal bowel sounds, soft, no peritoneal signs. Absent: distended, tenderness - Extremities Exam Extremities exam: Present: warm, radial pulses palpable and symmetrical. Absent : calf tenderness, cyanotic, pedal edema - Neurological Exam Neurological exam: Present: CN II-XII intact, oriented X3, no focal deficits. Absent: pronater drift, facial droop, speech deficit - Skin Skin exam: Present: dry, intact Internal Medicine: Result - Labs CBC & Chem 7: 02/19/18 16:00 02/19/18 03:46 Labs: Short CBC 02/18/18 02/19/18 02/19/18 Range/Units 22:39 03:46 10:30 WBC 19.1 H (4.3-11.1) K/mcL Hgb 10.8 L 10.3 L 10.1 L (12.9-16.9) g/dL Hct 34.7 L 33.5 L 33.4 L (37.5-50.1) % Plt Count 342 (140-400) K/mcL Neutrophils # 17.2 H (1.6-8.9) K/mcL 02/19/18 Range/Units 16:00 WBC (4.3-11.1) K/mcL Hgb 10.3 L (12.9-16.9) g/dL Hct 33.8 L (37.5-50.1) % Plt Count (140-400) K/mcL Neutrophils # (1.6-8.9) K/mcL BMP 02/19/18 03:46 Sodium 141 Potassium 3.6 Chloride 101 Carbon Dioxide 32 H BUN 41 H Creatinine 1.54 H Glucose 207 H Calcium 8.5 L - ABG Interpretation ABG results: ABG ABG pH 7.35 pH Units (7.32-7.45) 02/18/18 20:07 ABG pCO2 62 mmHg (35-45) H 02/18/18 20:07 ABG pO2 152 mmHg (85-104) H 02/18/18 20:07 ABG O2 Saturation 99 % (95-98) H 02/18/18 20:07 PT/INR, D-dimer PT 14.4 Seconds (9.4-12.1) H 02/18/18 05:40 - VTE Documentation of Mechanical Device: Venous foot pump, device Consult Discharge Plan - Plan Referrals: Bulmaro Negro MD [Primary Care Provider] - 02/25/18 3:00 pm Andrea Hernandez MD [Partnered Physician] - 02/25/19 11:45 am (Please arrive 15 minutes early to appointment.) Suzanne Posadas, AUDI [Advanced Practice Nurse] - 02/26/18 8:00 am Jovani Goldberg MD [Partnered Physician] - 03/19/18 2:15 pm
[2018-02-19] MEDS ORDERED: 0.9 % Sodium Chloride 500 ML IVC ONE (17:55)
[2018-02-19] MEDS: Ondansetron 4 MG/2 ML VIAL IVP PRN (19:24)
[2018-02-19] MEDS: *HR* Metoprolol 5 MG/5 ML VIAL IVP PRN (20:13)
[2018-02-19] MEDS: Doxycycline 100 MG CAPSULE PO SCH (20:34)
[2018-02-20] MEDS: Piperacillin/Tazobactam 3.375 GM in 0.9 % Sodium Chloride Mini Bag 100 ML IVPB SCH ×3 (00:01→16:06)
[2018-02-20] MEDS: MethylPREDNISolone 40 MG/ML VIAL IVP SCH ×3 (00:01→21:00)
[2018-02-20] MEDS: *HR* Metoprolol 5 MG/5 ML VIAL IVP PRN (02:11)
[2018-02-20] MEDS: Levalbuterol Neb 1.25 MG/3 ML IH SCH ×4 (04:28→22:13)
[2018-02-20 04:52] LABS: Basophils % 0.1 %; Hematocrit 33.1 % (37.5-50.1); Immature Granulocytes % 0.7 % (0-4); Lymphocytes # 0.7 K/mcL (0.6-4.6); Mean Corpuscular HGB Conc 30.2 g/dL (31.6-35.5); Mean Corpuscular Hemoglobin 27.5 pg (28.0-33.3); Mean Corpuscular Volume 91.2 fL (83.0-100.0); Mean Platelet Volume 10.7 fL (9.4-12.4); Monocytes # 0.6 K/mcL (0.0-1.3); Monocytes % 3.3 %; Neutrophils # 15.8 K/mcL (1.6-8.9); Platelet Count 395 K/mcL (140-400); Red Blood Count 3.63 M/mcL (4.19-5.50); Red Cell Distribution Width 13.9 % (11.5-14.5); Segmented Neutrophils % 91.9 %
[2018-02-20 05:07] LABS: BUN/Creatinine Ratio 30 (6-26); Blood Urea Nitrogen 34 mg/dL (8-23); Calcium 8.5 mg/dL (8.6-10.3); Carbon Dioxide 38 mEq/L (23-29); Chloride 95 mEq/L (98-107); Glucose 315 mg/dL (70-105); Osmolality,Calculated 312 (280-300); Potassium 3.5 mEq/L (3.5-5.1); Sodium 141 mEq/L (136-145); eGFR For African Americans > 60 (> 60); eGFR For Non-African Americans > 60 (> 60)
--- NOTE | 2018-02-20 05:07 | Event Note ---
Date of Encounter: 02/20/18 Time of Encounter: 05:00 Pt developed A Fib RVR. Pt has Hx of A Fib. Pt was given metoprolol 5 mg iv once but HR is still not well controlled. Pt is asymptomatic. Will start cardizem drip.
--- NOTE | 2018-02-20 07:31 | Internal Med Progress Note ---
Date of Encounter: 02/20/18 Time of Encounter: 07:29 - Assessment and plan (1) Acute cholecystitis Current Visit: Yes Status: Acute Assessment and plan: As seen on CT abdomen/Pelvis Status post Lap annie 02/18 - doing well Surgery team following, recommendations appreciated Continue antibiotics Advance diet as tolerated (2) Acute respiratory failure Current Visit: No Status: Acute Assessment and plan: - Hypoxic in Urology office yesterday - History of COPD and HFpEF. CTA negative for PE/PNA/ pleural effusion - Review of prior discharge seems that patient was discharged on O2, possibly weaned to room air in that time at [facility] - This could be acute on chronic respiratory failure - Lung exam shows decreased breath sounds with faint wheezing and poor air exchange poor inspiratory effort - Initial ABG showed hypoxia at SpO2 85% patient was not on oxygen, with CO2 58 level and compensated pH of 7.46, HCO3 41 patient likely retains CO2 at baseline. 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 - 02/20 had episode of coffee ground emesis in AM with some nausea. H&H 10.0 and patient appears hemodynamically stable. Recheck H&H this afternoon Qualifiers: Nausea presence: with nausea Qualified Code(s): K92.0 - Hematemesis (4) Candiduria Current Visit: Yes Status: Acute Assessment and plan: Hold IV fluid for now. 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 (7) Atrial fibrillation with RVR Current Visit: Yes Status: Acute Assessment and plan: Labetolol was held on admission due to hypotension. Restarted on 02/19 but patient did get tachycardic overnight and so started on Cardizem drip. Continue drip and titrate, continue labetolol. Patient is poor anticoagulation candidate secondary to / esophageal mass that was recently bleeding and had another episode of hematemesis on admission and on 02/19 (8) A-fib Current Visit: No Status: Chronic Assessment and plan: Xarelto held; EGD 02/19 showed esophageal cancer had recent bleed (but not actively bleeding at this point) Resume labetolol (with hold paremeters) since patient BP improved and also tachycardic Continue prn lopressor IV q6h Afib with rvr on 02/19 on cardizem drip Qualifiers: Atrial fibrillation type: chronic Qualified Code(s): I48.2 - Chronic atrial fibrillation (9) COPD (chronic obstructive pulmonary disease) Current Visit: No Status: Chronic Assessment and plan: With acute exacerbation and hypoxia Continue Solu Medrol taper to 40 mg Q12h today. Xopenex Q6H bipap as needed wean O2 as tolerated Qualifiers: COPD type: unspecified COPD Qualified Code(s): J44.9 - Chronic obstructive pulmonary disease, unspecified (10) Decubitus ulcer Current Visit: No Status: Chronic Assessment and plan: Wound care Qualifiers: Pressure ulcer location: other site Pressure ulcer stage: stage 2 Qualified Code(s): L89.892 - Pressure ulcer of other site, stage 2 (11) Diabetes mellitus Current Visit: No Status: Chronic Assessment and plan: Advance diet per surgery recommendations currently CLD, ISS, accuchecks AC and HS Goal blood glucose range 140-180 Qualifiers: Diabetes mellitus type: type 2 Diabetes mellitus assisted insulin use: without intermediate accountant use Diabetes mellitus complication status: with hyperglycemia Qualified Code(s): E11.65 - Type 2 diabetes mellitus with hyperglycemia (12) Hypertension Current Visit: No Status: Chronic Assessment and plan: IV hydralazine prn. Restarted labetolol 02/19 since BP improved Currently on cardizem drip from afib with rvr, should improve BP as well. Restart lisinopril when renal function tolerates. Qualifiers: Hypertension type: essential hypertension Qualified Code(s): I10 - Essential (primary) hypertension (13) Heart failure Current Visit: Yes Status: Acute Assessment and plan: Patient does not have acute decompensation. Patient has required IV fluids because of dehydration he is getting slow infusion currently at 50 ml/hr, will hold for now Qualifiers: Heart failure type: diastolic Heart failure chronicity: chronic Qualified Code(s): I50.32 - Chronic diastolic (congestive) heart failure (14) Acute renal failure Current Visit: Yes Status: Deleted Assessment and plan: Possible dye, medication, sepsis related. improved with IV fluids Has been on a slow infusion of IV fluid (50 ml/hr) with a 500 cc bolus on 02/19. Will hold fluids for now to prevent fluid overload and then recheck renal function Qualifiers: Acute renal failure type: unspecified Qualified Code(s): N17.9 - Acute kidney failure, unspecified (15) DVT prophylaxis Current Visit: No Status: Acute Assessment and plan: SCDs - Subjective Interval history: 02/18: laparoscopic cholecystectomy 02/19: EGD done today redemonstrated a large ulcerating mass with no active bleeding but did show evidence of recent bleeding. 02/20: Labetolol was restarted yesterday but patient went into afib with RVR overnight and was then started on a cardizem drip. He had one small episode of coffee ground emesis this morning. Denies fevers/chills, SOB, chest pain. He is compliant with breathing treatment Xopenex but refuses bipap at night because of nausea - Constitutional Vitals: Temp Pulse Resp BP Pulse Ox 98.1 F 104 22 165/96 95 02/20/18 06:37 02/20/18 07:00 02/20/18 06:37 02/20/18 07:00 02/20/18 06:37 General appearance: Present: A&O X 3, morbidly obese, no acute distress, answers questions appropriately Exam: - Head Head exam: Present: atraumatic, normocephalic - Eye Eye exam: Present: PERRL, conjuntiva pink, sclera anicteric Pupils: Present: PERRL - Neck Neck exam general surgery: Present: supple, trachea midline. Absent: lymphadenopathy - Respiratory Respiratory exam: Present: decreased breath sounds (exam also limited by body habitus). Absent: accessory muscle use, rales, rhonchi, wheezes - Cardiovascular Cardiovascular exam: Present: +S1, +S2, tachycardia. Absent: diastolic murmur, gallop, rubs, systolic murmur - GI/Abdominal GI/Abdominal exam: Present: normal bowel sounds, tenderness - improved since yesterday, soft, no peritoneal signs. Absent: distended - Extremities Exam Extremities exam: Present: warm, radial pulses palpable and symmetrical. Absent : calf tenderness, cyanotic, pedal edema - Neurological Exam Neurological exam: Present: CN II-XII intact, oriented X3, no focal deficits. Absent: pronater drift, facial droop, speech deficit - Skin Skin exam: Present: dry, intact Internal Medicine: Result - Labs CBC & Chem 7: 02/20/18 04:00 02/20/18 04:00 Labs: Short CBC 02/19/18 02/19/18 02/20/18 Range/Units 10:30 16:00 04:00 WBC 17.2 H (4.3-11.1) K/mcL Hgb 10.1 L 10.3 L 10.0 L (12.9-16.9) g/dL Hct 33.4 L 33.8 L 33.1 L (37.5-50.1) % Plt Count 395 (140-400) K/mcL Neutrophils # 15.8 H (1.6-8.9) K/mcL BMP 02/20/18 04:00 Sodium 141 Potassium 3.5 Chloride 95 L Carbon Dioxide 38 H BUN 34 H Creatinine 1.13 Glucose 315 H Calcium 8.5 L - ABG Interpretation ABG results: ABG ABG pH 7.35 pH Units (7.32-7.45) 02/18/18 20:07 ABG pCO2 62 mmHg (35-45) H 02/18/18 20:07 ABG pO2 152 mmHg (85-104) H 02/18/18 20:07 ABG O2 Saturation 99 % (95-98) H 02/18/18 20:07 PT/INR, D-dimer PT 14.4 Seconds (9.4-12.1) H 02/18/18 05:40 - VTE Documentation of Mechanical Device: Venous foot pump, device Consult Discharge Plan - Plan Referrals: Bulmaro Negro MD [Primary Care Provider] - 02/25/18 3:00 pm Andrea Hernandez MD [Partnered Physician] - 02/25/19 11:45 am (Please arrive 15 minutes early to appointment.) Suzanne Posadas CNP [Advanced Practice Nurse] - 02/26/18 8:00 am Jovani Goldberg MD [Partnered Physician] - 03/19/18 2:15 pm
[2018-02-20] MEDS: Doxycycline 100 MG CAPSULE PO SCH ×2 (08:35→11:36)
[2018-02-20] MEDS: Miconazole 2% ointment 114 GM TUBE TP SCH ×2 (08:35→21:00)
[2018-02-20] MEDS: Insulin LISPRO 300 UNITS/3 ML VIAL SQ SCH ×4 (08:48→21:00)
--- NOTE | 2018-02-20 12:11 | General Surgery Progress Note ---
<Alyssa Elam-My - Last Filed: 02/20/18 12:09> Date of Encounter: 02/20/18 Time of Encounter: 10:30 - Assessment and Plan (1) Acute cholecystitis Current Visit: Yes Status: Acute POD #2 from a laparoscopic cholecystectomy with Dr. Prasad for a necrotic gallbladder Will order XR acute abdominal series to further evaluate Continue DENNY drain 1 Continue IV antibiotics- Zosyn for gallbladder continue clear liquid diet Supportive care and pain control Incentive spirometer every 1 hour while awake Increase activity as tolerated surgery will continue to follow the patient (2) Status post laparoscopic cholecystectomy Current Visit: Yes Status: Acute POD #2 from a laparoscopic cholecystectomy with Dr. Prasad for a necrotic gallbladder. See plan as above. (3) Esophageal cancer Current Visit: Yes Status: Acute Patient is status post an EGD with Dr. Rodriguez on 02/19/2018 Qualifiers: Malignant neoplasm of esophagus location: lower third Qualified Code(s): C15.5 - Malignant neoplasm of lower third of esophagus Subjective Patient reports: still having pain (The patient states that he believes his abdominal pain is improving. The patient states that his Adame catheter is causing him pain and discomfort in his penis. He denies any chest pain or shortness of breath.), no flatus, bowel movement (Patient stated that he believed he had a bowel movement last night and is unsure if it was bloody or not. ), nausea, vomiting (The patient admits nausea and vomiting. The patient state that he just received his Zofran prior to my exam. The patient states he had coffee ground emesis approximately 3 hours ago.), afebrile Objective Vital Signs - Last 8 Hours Temp Pulse Resp BP Pulse Ox 02/20/18 11:54 88 02/20/18 11:52 88 16 118/69 98 02/20/18 11:08 98.8 F 89 21 125/83 100 02/20/18 10:08 91 20 123/92 96 02/20/18 08:17 98.1 F 102 22 148/119 97 02/20/18 07:47 101 02/20/18 07:00 104 165/96 02/20/18 06:45 109 154/117 02/20/18 06:37 98.1 F 138 22 145/116 95 02/20/18 06:30 133 145/116 03/31/18 06:15 100 154/109 02/20/18 06:00 104 147/109 02/20/18 05:50 105 158/113 02/20/18 04:28 22 97 Intake and Output 02/19/18 02/20/18 02/20/18 23:59 07:59 15:59 Intake Total 460 / 460 108 / 108 Output Total 913 / 913 220 / 220 Balance -453 / -453 -112 / -112 Intake: IV Fluids 100 / 100 108 / 108 0.9 % Sodium Chloride 500 ML @ 0 / 0 1875 mls/hr IVC .Q16M [facility] Rx#: [id number] Cardizem 125 MG In 0.9 % Sodium 8 / 8 Chloride 100 ML @ 5 MG/HR 5 mls/hr IVC .Q24H [facility] Rx#: [id number] Zosyn 3.375 GM In 0.9 % Sodium 100 / 100 100 / 100 Chloride (Mini-Bag +) 100 ML @ 25 mls/hr IVPB Q8HR [facility] Rx#: [id number] Oral 360 / 360 Output: Catheter 855 / 855 200 / 200 Wound Drainage 58 / 58 20 / 20 Right Lower Abdomen 58 / 58 20 / 20 Other: # Urine Diapers 1 Weight 136.9 kg Blood Glucose* 240 339 317 Patient Weight 02/20/18 23:59 Weight 136.9 kg - General physical appearance well developed, well nourished, moderate pain - Eyes PERRL, normal ocular movement - ENT normal mucosa - Neck Neck exam: trachea midline - Respiratory normal expansion, normal respiratory effort, other (Decreased breath sounds in the lower bilateral bases. Course breath sounds bilaterally in the anterior lung dixon) - Cardiovascular Cardiovascular exam: Present: RRR, no murmurs/rubs/gallops - Abdomen Abdomen: Present: bowel sounds present, soft, tender (Minimal tenderness near his surgical incisions. Expected and appropriate post operative tenderness.), wound (P drain to bulb suction with serousangious drainage noted). Absent: guarding, rebound, rigid - Incision Incision: Present: clean and dry, intact. Absent: draining, erythema, purulent - Genitourinary other (Adame catheter is present.) - Integumentary no rash - Neurologic CN 2-12 grossly intact - Psychiatric oriented to time, oriented to person, oriented to place, speech is normal - Labs 02/20/18 04:00 03/31/18 04:00 Diabetes panel 02/20/18 Range/Units 04:00 Sodium 141 (136-145) mEq/L Potassium 3.5 (3.5-5.1) mEq/L Chloride 95 L (98-107) mEq/L Carbon Dioxide 38 H (23-29) mEq/L BUN 34 H (8-23) mg/dL Creatinine 1.13 (0.70-1.30) mg/dL Glucose 315 H (70-105) mg/dL Calcium 8.5 L (8.6-10.3) mg/dL Calcium panel 02/20/18 Range/Units 04:00 Calcium 8.5 L (8.6-10.3) mg/dL Pituitary panel 02/20/18 Range/Units 04:00 Sodium 141 (136-145) mEq/L Potassium 3.5 (3.5-5.1) mEq/L Chloride 95 L (98-107) mEq/L Carbon Dioxide 38 H (23-29) mEq/L BUN 34 H (8-23) mg/dL Creatinine 1.13 (0.70-1.30) mg/dL Glucose 315 H (70-105) mg/dL Calcium 8.5 L (8.6-10.3) mg/dL Adrenal panel 02/20/18 Range/Units 04:00 Sodium 141 (136-145) mEq/L Potassium 3.5 (3.5-5.1) mEq/L Chloride 95 L (98-107) mEq/L Carbon Dioxide 38 H (23-29) mEq/L BUN 34 H (8-23) mg/dL Creatinine 1.13 (0.70-1.30) mg/dL Glucose 315 H (70-105) mg/dL Calcium 8.5 L (8.6-10.3) mg/dL - VTE Documentation of Mechanical Device: Venous foot pump, device Consult Discharge Plan - Plan Referrals: Bulmaro Negro MD [Primary Care Provider] - 02/25/18 3:00 pm Andrea Hernandez MD [Partnered Physician] - 02/25/19 11:45 am (Please arrive 15 minutes early to appointment.) Suzanne Posadas CNP [Advanced Practice Nurse] - 02/26/18 8:00 am Jovani Goldberg MD [Partnered Physician] - 03/19/18 2:15 pm <ObnHi Nico - Last Filed: 02/20/18 12:41> Date of Encounter: 02/20/18 Objective Vital Signs - Last 8 Hours Temp Pulse Resp BP Pulse Ox 02/20/18 11:54 88 02/20/18 11:52 88 16 118/69 98 02/20/18 11:08 98.8 F 89 21 125/83 100 02/20/18 10:08 91 20 123/92 96 02/20/18 08:17 98.1 F 102 22 148/119 97 02/20/18 07:47 101 02/20/18 07:00 104 165/96 02/20/18 06:45 109 154/117 02/20/18 06:37 98.1 F 138 22 145/116 95 02/20/18 06:30 133 145/116 02/20/18 06:15 100 154/109 02/20/18 06:00 104 147/109 02/20/18 05:50 105 158/113 Intake and Output 02/19/18 02/20/18 02/20/18 23:59 07:59 15:59 Intake Total 460 / 460 108 / 108 Output Total 913 / 913 220 / 220 Balance -453 / -453 -112 / -112 Intake: IV Fluids 100 / 100 108 / 108 0.9 % Sodium Chloride 500 ML @ 0 / 0 1875 mls/hr IVC .Q16M [facility] Rx#: [id number] Cardizem 125 MG In 0.9 % Sodium 8 / 8 Chloride 100 ML @ 5 MG/HR 5 mls/hr IVC .Q24H [facility] Rx#: [id number] Zosyn 3.375 GM In 0.9 % Sodium 100 / 100 100 / 100 Chloride (Mini-Bag +) 100 ML @ 25 mls/hr IVPB Q8HR [facility] Rx#: [id number] Oral 360 / 360 Output: Catheter 855 / 855 200 / 200 Wound Drainage 58 / 58 20 / 20 Right Lower Abdomen 58 / 58 20 / 20 Other: # Urine Diapers 1 Weight 136.9 kg Blood Glucose* 240 339 317 Patient Weight 02/20/18 23:59 Weight 136.9 kg - Labs 02/20/18 04:00 02/20/18 04:00 Diabetes panel 02/20/18 Range/Units 04:00 Sodium 141 (136-145) mEq/L Potassium 3.5 (3.5-5.1) mEq/L Chloride 95 L (98-107) mEq/L Carbon Dioxide 38 H (23-29) mEq/L BUN 34 H (8-23) mg/dL Creatinine 1.13 (0.70-1.30) mg/dL Glucose 315 H (70-105) mg/dL Calcium 8.5 L (8.6-10.3) mg/dL Calcium panel 02/20/18 Range/Units 04:00 Calcium 8.5 L (8.6-10.3) mg/dL Pituitary panel 02/20/18 Range/Units 04:00 Sodium 141 (136-145) mEq/L Potassium 3.5 (3.5-5.1) mEq/L Chloride 95 L (98-107) mEq/L Carbon Dioxide 38 H (23-29) mEq/L BUN 34 H (8-23) mg/dL Creatinine 1.13 (0.70-1.30) mg/dL Glucose 315 H (70-105) mg/dL Calcium 8.5 L (8.6-10.3) mg/dL Adrenal panel 02/20/18 Range/Units 04:00 Sodium 141 (136-145) mEq/L Potassium 3.5 (3.5-5.1) mEq/L Chloride 95 L (98-107) mEq/L Carbon Dioxide 38 H (23-29) mEq/L BUN 34 H (8-23) mg/dL Creatinine 1.13 (0.70-1.30) mg/dL Glucose 315 H (70-105) mg/dL Calcium 8.5 L (8.6-10.3) mg/dL - Attending Attestation I examined this patient and my medical decision-making was reviewed with the Resident Physician. I agree with the documented findings, disposition and treatment plan as described except to the extent set forth below. I reviewed the above assessment and evaluation and agree with the above plan. Patient is status post laparoscopic cholecystectomy and still has had some nausea and vomiting. Current diet is clears. Agree with abdominal x-ray and continued observation at this time.
[2018-02-20 14:08] LABS: Hematocrit 28.1 % (37.5-50.1)
[2018-02-20 14:09] LABS: Hemoglobin 8.4 g/dL (12.9-16.9)
[2018-02-20] MEDS ORDERED: 0.9 % Sodium Chloride 1,000 ML ONE (15:03)
[2018-02-20 16:16] LABS: ABG Base Excess 15 mEq/L (-2 to 3); ABG HCO3 41 mEq/L (21-27); ABG Oxygen Saturation 98 % (95-98); ABG PCO2 61 mmHg (35-45); ABG PH 7.43 pH Units (7.32-7.45); ABG PO2 102 mmHg (85-104); ABG TCO2 43 mEq/L (20-26); Blood Gas Modality PC/PS; Blood Gas PEEP 6 cm H2O; Blood Gas Pressure Support 12 cm H2O
--- NOTE | 2018-02-20 16:41 | Electrocardiograph Report ---
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
[2018-02-20] MEDS ORDERED: 0.9 % Sodium Chloride 250 ML ONE ×2 (18:38→21:38)
[2018-02-21] MEDS: Doxycycline 100 MG in 0.9 % Sodium Chloride Mini Bag 100 ML IVPB SCH ×2 (01:30→12:10)
[2018-02-21] MEDS: Piperacillin/Tazobactam 3.375 GM in 0.9 % Sodium Chloride Mini Bag 100 ML IVPB SCH ×3 (01:32→16:44)
[2018-02-21] MEDS: Levalbuterol Neb 1.25 MG/3 ML IH SCH ×4 (03:36→23:00)
[2018-02-21 05:23] LABS: Basophils % 0.1 %; Hematocrit 32.6 % (37.5-50.1); Immature Granulocytes % 0.6 % (0-4); Lymphocytes # 0.6 K/mcL (0.6-4.6); Mean Corpuscular HGB Conc 30.7 g/dL (31.6-35.5); Mean Corpuscular Hemoglobin 27.7 pg (28.0-33.3); Mean Corpuscular Volume 90.3 fL (83.0-100.0); Mean Platelet Volume 10.6 fL (9.4-12.4); Monocytes # 0.5 K/mcL (0.0-1.3); Monocytes % 4.4 %; Neutrophils # 11.1 K/mcL (1.6-8.9); Platelet Count 358 K/mcL (140-400); Red Blood Count 3.61 M/mcL (4.19-5.50); Red Cell Distribution Width 14.4 % (11.5-14.5); Segmented Neutrophils % 89.9 %
[2018-02-21 05:58] LABS: BUN/Creatinine Ratio 40 (6-26); Blood Urea Nitrogen 39 mg/dL (8-23); Calcium 8.6 mg/dL (8.6-10.3); Carbon Dioxide > 45 mEq/L (23-29); Chloride 94 mEq/L (98-107); Glucose 291 mg/dL (70-105); Osmolality,Calculated 320 (280-300); Potassium 3.3 mEq/L (3.5-5.1); Sodium 145 mEq/L (136-145); eGFR For African Americans > 60 (> 60); eGFR For Non-African Americans > 60 (> 60)
--- NOTE | 2018-02-21 07:22 | Internal Med Progress Note ---
Date of Encounter: 02/21/18 Time of Encounter: 07:19 - Assessment and plan (1) Acute cholecystitis Current Visit: Yes Status: Acute Assessment and plan: As seen on CT abdomen/Pelvis Status post Lap annie 02/18 - doing well Surgery team following, recommendations appreciated Continue antibiotics Advance diet as tolerated Afebrile, WBC improving, no acute distress this morning (2) Upper GI bleed Current Visit: Yes Status: Acute Assessment and plan: On admission patient had hematemesis. He has recently diagnosed with esophageal cancer after seen on EGD on 01/21 during a recent admission. Xarelto held during this admission. Patient was on protonix drip and symptoms resolved. - EGD 02/19 on this admission showed partially obstructing ulcerating mass that was not actively bleeding but showed stigmata of recent bleeding. - 02/20 had episode of coffee ground emesis in AM with some nausea. H&H 10.0 then went to 8.4, we was given 2 units PRBC. NG Tube placed - 02/21: NG output 2,800 ml fluid coffee ground appearing. H&H stable after transfusion of PRBC. - s/p 2 units PRBC 02/20, stable, vitals improved, no longer hypotensive or tachycardic. - repeat H&H Q6H - GI following, recommendations appreciated - IV ppi (3) Acute respiratory failure Current Visit: No Status: Acute Assessment and plan: - Hypoxic in Urology office yesterday - History of COPD and HFpEF. CTA negative for PE/PNA/ pleural effusion - Review of prior discharge seems that patient was discharged on O2, possibly weaned to room air in that time at SNF - This could be acute on chronic respiratory failure - Lung exam shows decreased breath sounds with faint wheezing and poor air exchange poor inspiratory effort - Initial ABG showed hypoxia at SpO2 85% patient was not on oxygen, with CO2 58 level and compensated pH of 7.46, HCO3 41 patient likely retains CO2 at baseline. - Continue Solu Medrol - taper, Xopenex - Bipap as needed Qualifiers: Respiratory failure complication: hypoxia Qualified Code(s): J96.01 - Acute respiratory failure with hypoxia (4) Candiduria Current Visit: Yes Status: Acute Assessment and plan: Hold IV fluid for now. 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 Oncology consulted. (7) Atrial fibrillation with RVR Current Visit: Yes Status: Acute Assessment and plan: Labetolol was held on admission due to hypotension, restarted on 02/19. but patient did get tachycardic overnight and so started on Cardizem drip. Cardizem drip d/c'd 02/20 for hypotension and rate did improve. Has been tachycardic overnight but currently sinus rhythm with HR 90 bpm on telemetry . - Patient is poor anticoagulation candidate secondary to UGIB. (8) A-fib Current Visit: No Status: Chronic Assessment and plan: Xarelto held; EGD 02/19 showed esophageal cancer had recent bleed (but not actively bleeding at this point) Resume labetolol (with hold paremeters) since patient BP improved and also tachycardic Continue prn lopressor IV q6h Afib with rvr on 02/19 on cardizem drip Qualifiers: Atrial fibrillation type: chronic Qualified Code(s): I48.2 - Chronic atrial fibrillation (9) COPD (chronic obstructive pulmonary disease) Current Visit: No Status: Chronic Assessment and plan: With acute exacerbation and hypoxia Continue Solu Medrol at 40 mg Q12h. Taper dose tomorrow Xopenex Q6H bipap as needed wean O2 as tolerated Qualifiers: COPD type: unspecified COPD Qualified Code(s): J44.9 - Chronic obstructive pulmonary disease, unspecified (10) Decubitus ulcer Current Visit: No Status: Chronic Assessment and plan: Wound care Qualifiers: Pressure ulcer location: other site Pressure ulcer stage: stage 2 Qualified Code(s): L89.892 - Pressure ulcer of other site, stage 2 (11) Diabetes mellitus Current Visit: No Status: Chronic Assessment and plan: Advance diet per surgery recommendations currently CLD, ISS, accuchecks AC and HS Goal blood glucose range 140-180 Qualifiers: Diabetes mellitus type: type 2 Diabetes mellitus terminal superintendent insulin use: without terminal superintendent use Diabetes mellitus complication status: with hyperglycemia Qualified Code(s): E11.65 - Type 2 diabetes mellitus with hyperglycemia (12) Hypertension Current Visit: No Status: Chronic Assessment and plan: IV hydralazine prn. Restarted labetolol 02/19 since BP improved Currently on cardizem drip from afib with rvr, should improve BP as well. Restart lisinopril when renal function tolerates. Qualifiers: Hypertension type: essential hypertension Qualified Code(s): I10 - Essential (primary) hypertension (13) Heart failure Current Visit: Yes Status: Acute Assessment and plan: Patient does not have acute decompensation. Patient has required IV fluids because of dehydration he is getting slow infusion currently at 50 ml/hr, will hold for now Qualifiers: Heart failure type: diastolic Heart failure chronicity: chronic Qualified Code(s): I50.32 - Chronic diastolic (congestive) heart failure (14) Acute renal failure Current Visit: Yes Status: Deleted Assessment and plan: Possible dye, medication, sepsis related. improved with IV fluids Has been on a slow infusion of IV fluid (50 ml/hr) with a 500 cc bolus on 02/19. Fluids held as renal function back to baseline Qualifiers: Acute renal failure type: unspecified Qualified Code(s): N17.9 - Acute kidney failure, unspecified (15) DVT prophylaxis Current Visit: No Status: Acute Assessment and plan: SCDs - Subjective Interval history: 02/18: laparoscopic cholecystectomy 02/19: EGD done today redemonstrated a large ulcerating mass with no active bleeding but did show evidence of recent bleeding. 02/20: Labetolol was restarted yesterday but patient went into afib with RVR overnight and was then started on a cardizem drip. He had one small episode of coffee ground emesis this morning. Denies fevers/chills, SOB, chest pain. He is compliant with breathing treatment Xopenex but refuses bipap at night because of nausea 02/21: patient had NG tube placed yesterday because of distention and drop in hemoglobin. He was transfused 2 units overnight. Patient stating this morning he is feeling better this morning. NG tube reported by night time nurse that 2, 800 ml fluid removed total since yesterday. At bedside patient HR is 90s sinus rhythm. He denies fevers/chills, nausea has resolved. Denies SOB or chest pain. - Constitutional Vitals: Temp Pulse Resp BP Pulse Ox 98.0 F 120 22 152/90 93 02/21/18 06:53 02/21/18 06:53 02/21/18 06:53 02/21/18 06:53 02/21/18 06:53 General appearance: Present: A&O X 3, morbidly obese, no acute distress, answers questions appropriately Exam: NG tube in place, draining coffee ground appearing material seen in canister. - Head Head exam: Present: atraumatic, normocephalic - ENT ENT exam: Present: mucous membranes moist - Respiratory Respiratory exam: Present: decreased breath sounds. Absent: accessory muscle use, prolonged expiratory phase, wheezes - Cardiovascular Cardiovascular exam: Present: RRR, +S1, +S2. Absent: diastolic murmur, gallop, rubs, systolic murmur - GI/Abdominal GI/Abdominal exam: Present: normal bowel sounds, soft. Absent: distended ( Improved since yesterday), guarding, mass, rebound, tenderness, no peritoneal signs - Extremities Exam Extremities exam: Present: pedal edema Additional comments: bilateral venous stasis changes - Neurological Exam Neurological exam: Present: CN II-XII intact, oriented X3, no focal deficits. Absent: pronater drift, facial droop, speech deficit Internal Medicine: Result - Labs CBC & Chem 7: 02/21/18 04:00 02/21/18 04:00 Labs: Short CBC 02/20/18 02/21/18 Range/Units 13:47 04:00 WBC 12.4 H (4.3-11.1) K/mcL Hgb 8.4 L D 10.0 L D (12.9-16.9) g/dL Hct 28.1 L 32.6 L (37.5-50.1) % Plt Count 358 (140-400) K/mcL Neutrophils # 11.1 H (1.6-8.9) K/mcL BMP 02/21/18 04:00 Sodium 145 Potassium 3.3 L Chloride 94 L Carbon Dioxide > 45 H* BUN 39 H Creatinine 0.98 Glucose 291 H Calcium 8.6 - ABG Interpretation ABG results: ABG ABG pH 7.43 pH Units (7.32-7.45) 02/20/18 16:11 ABG pCO2 61 mmHg (35-45) H 02/20/18 16:11 ABG pO2 102 mmHg (85-104) 02/20/18 16:11 ABG O2 Saturation 98 % (95-98) 02/20/18 16:11 PT/INR, D-dimer PT 14.4 Seconds (9.4-12.1) H 02/18/18 05:40 - Impressions Impressions Chest/Abdomen X-ray 02/20/18 11:37 IMPRESSION: Significant gaseous distention of the stomach. Paramediastinal right upper lobe opacity, atelectasis versus pneumonia. Findings in left lung base compatible with atelectasis. D/ / Nadeem Steen MD / Nadeem Steen MD Interpreting Provider: Nadeem Steen MD - VTE Documentation of Mechanical Device: Venous foot pump, device Consult Discharge Plan - Plan Referrals: Bulmaro Negro MD [Primary Care Provider] - 02/25/18 3:00 pm Andrea Hernandez MD [Partnered Physician] - 02/25/19 11:45 am (Please arrive 15 minutes early to appointment.) Suzanne Posadas CNP [Advanced Practice Nurse] - 02/26/18 8:00 am Jovani Goldberg MD [Partnered Physician] - 03/19/18 2:15 pm
[2018-02-21] MEDS: MethylPREDNISolone 40 MG/ML VIAL IVP SCH (08:45)
[2018-02-21] MEDS: Ondansetron 4 MG/2 ML VIAL IVP PRN (08:47)
[2018-02-21] MEDS: *HR* Metoprolol 5 MG/5 ML VIAL IVP PRN ×2 (08:47→16:44)
[2018-02-21] MEDS: Insulin LISPRO 300 UNITS/3 ML VIAL SQ SCH ×4 (08:50→20:15)
[2018-02-21] MEDS: Miconazole 2% ointment 114 GM TUBE TP SCH ×2 (08:51→20:14)
[2018-02-21] MEDS: Pantoprazole 40 MG VIAL IVP SCH ×2 (08:54→16:44)
[2018-02-21 09:53] LABS: Hematocrit 34.2 % (37.5-50.1); Hemoglobin 10.7 g/dL (12.9-16.9)
--- NOTE | 2018-02-21 12:54 | General Surgery Progress Note ---
<Aubrey Elam - Last Filed: 02/21/18 16:51> Date of Encounter: 02/21/18 Time of Encounter: 10:30 - Assessment and Plan (1) Acute cholecystitis Current Visit: Yes Status: Acute POD #3 from a laparoscopic cholecystectomy with Dr. Prasad for a necrotic gallbladder. NG tube output of a total of 2800 overnight and 400mL this morning. Drainage is coffee ground appearing. H&H stable after transfusion of PRBC. Continue NG tube to LIWS Will order KUB to check position of NG tube Continue DENNY drain 1 Continue IV antibiotics- Zosyn for gallbladder NPO diet Supportive care and pain control Incentive spirometer every 1 hour while awake Increase activity as tolerated surgery will continue to follow the patient (2) Status post laparoscopic cholecystectomy Current Visit: Yes Status: Acute POD #3 from a laparoscopic cholecystectomy with Dr. Prasad for a necrotic gallbladder. See plan as above. (3) Esophageal cancer Current Visit: Yes Status: Acute Patient is status post an EGD with Dr. Rodriguez on 02/19/2018. EGD showed partially obstructing ulcerating mass that was not actively bleeding. Qualifiers: Malignant neoplasm of esophagus location: lower third Qualified Code(s): C15.5 - Malignant neoplasm of lower third of esophagus Subjective Patient reports: no new complaints, feels better, pain is less, flatus (Patient stated he believes he passed flatus last night but none today), no bowel movement, afebrile Narrative: The patient was seen and evaluated at bedside this morning. is at bedside. Patient is currently on oxygen mask at 4 L with oxygen saturation at 92. Patient is awake, alert, afebrile, and appears in no acute distress. The patient states he feels significantly better compared to yesterday. He denies any nausea, vomiting, or abdominal pain at this time. The patient denies any fever, shortness of breath, chest pain, and difficulty breathing. He admits a productive cough. The patient states that he would like a urinary catheter to be placed again. Per patient, the urinary catheter was removed yesterday because it was leaky and causing him pain. The patient has no other concerns at this time. Objective Vital Signs - Last 8 Hours Temp Pulse Resp BP Pulse Ox 02/21/18 12:07 133/84 02/21/18 11:25 97.9 F 93 20 153/101 92 02/21/18 10:13 18 152/90 90 02/21/18 06:53 98.0 F 120 22 152/90 93 02/21/18 06:34 111 22 134/90 94 Intake and Output 02/20/18 02/21/18 02/21/18 23:59 07:59 15:59 Intake Total 350 / 350 300 / 300 100 / 100 Output Total 2810 / 2810 2009 300 / 300 Balance -2460 / -2460 -1710 / -1710 -200 / -200 Intake: IV Fluids 300 / 300 100 / 100 Doxycycline 100 MG In 0.9 % 100 / 100 Sodium Chloride (Mini-Bag +) 100 ML @ 100 mls/hr IVPB Q12H [facility] Rx#:[id number] Zosyn 3.375 GM In 0.9 % Sodium 200 / 200 Chloride (Mini-Bag +) 100 ML @ 25 mls/hr IVPB Q8HR [facility] Rx#: [id number] Potassium Chloride 10 mEq/100mL 100 / 100 10 meq In 100 ml @ 100 mls/hr IVPB Q1H [facility] Rx#:[id number] Oral 0 / 0 0 / 0 Blood Product 350 / 350 Rbcs Leuko Poor As-1 Unit 0 / 0 [id number] Rbcs Leuko Poor As-1 Unit 350 / 350 [id number] Output: Gastric Drainage 2800 / 2800 1999 / 1999 300 / 300 Right Nare 1999 / 1999 Wound Drainage Right Lower Abdomen Other: # Voids 1 1 1 Blood Glucose* 269 285 247 - General physical appearance well developed, no distress, obese - Eyes PERRL, normal ocular movement - ENT normal mucosa, Other (NG tube to LIWS) - Neck Neck exam: trachea midline - Respiratory other (No respiratory distress at this time. Decreased breath sounds bilaterally. Currently on oxygen mask at 4 L with 92% oxygen saturation.) - Cardiovascular Cardiovascular exam: Present: RRR, no murmurs/rubs/gallops - Abdomen Abdomen: Present: bowel sounds present (Very minimal bowel sounds present.), soft, distended (Mildly distended but improved compared to yesterday exam), tender (Mild tenderness to palpation.Expected and appropriate post operative tenderness.), wound (DENNY drain to bulb suction with serousangious drainage noted) . Absent: guarding, rebound, rigid - Incision Incision: Present: clean and dry, intact. Absent: draining, purulent - Integumentary no rash - Neurologic CN 2-12 grossly intact - Psychiatric oriented to time, oriented to person, oriented to place - Labs 02/21/18 15:30 02/21/18 04:00 Diabetes panel 02/21/18 Range/Units 04:00 Sodium 145 (136-145) mEq/L Potassium 3.3 L (3.5-5.1) mEq/L Chloride 94 L (98-107) mEq/L Carbon Dioxide > 45 H* (23-29) mEq/L BUN 39 H (8-23) mg/dL Creatinine 0.98 (0.70-1.30) mg/dL Glucose 291 H (70-105) mg/dL Calcium 8.6 (8.6-10.3) mg/dL Calcium panel 02/21/18 Range/Units 04:00 Calcium 8.6 (8.6-10.3) mg/dL Pituitary panel 02/21/18 Range/Units 04:00 Sodium 145 (136-145) mEq/L Potassium 3.3 L (3.5-5.1) mEq/L Chloride 94 L (98-107) mEq/L Carbon Dioxide > 45 H* (23-29) mEq/L BUN 39 H (8-23) mg/dL Creatinine 0.98 (0.70-1.30) mg/dL Glucose 291 H (70-105) mg/dL Calcium 8.6 (8.6-10.3) mg/dL Adrenal panel 02/21/18 Range/Units 04:00 Sodium 145 (136-145) mEq/L Potassium 3.3 L (3.5-5.1) mEq/L Chloride 94 L (98-107) mEq/L Carbon Dioxide > 45 H* (23-29) mEq/L BUN 39 H (8-23) mg/dL Creatinine 0.98 (0.70-1.30) mg/dL Glucose 291 H (70-105) mg/dL Calcium 8.6 (8.6-10.3) mg/dL - VTE Documentation of Mechanical Device: Venous foot pump, device Consult Discharge Plan - Plan Referrals: Bulmaro Negro MD [Primary Care Provider] - 02/25/18 3:00 pm Andrea Hernandez MD [Partnered Physician] - 02/25/19 11:45 am (Please arrive 15 minutes early to appointment.) Suzanne Posadas CNP [Advanced Practice Nurse] - 02/26/18 8:00 am Jovani Goldberg MD [Partnered Physician] - 03/19/18 2:15 pm <Hi Crockett - Last Filed: 02/22/18 01:06> Date of Encounter: 02/21/18 Objective Vital Signs - Last 8 Hours Temp Pulse Resp BP Pulse Ox 02/21/18 23:12 98.2 F 92 17 153/90 94 02/21/18 23:00 20 97 02/21/18 19:03 97.6 F 137 18 136/97 96 02/21/18 18:38 130/90 Intake and Output 02/21/18 02/21/18 02/22/18 15:59 23:59 07:59 Intake Total 300 / 300 450 / 450 Output Total 315 / 315 350 / 350 Balance -15 15 100 / 100 Intake: IV Fluids 300 / 300 100 / 100 Doxycycline 100 MG In 0.9 % 100 / 100 Sodium Chloride (Mini-Bag +) 100 ML @ 100 mls/hr IVPB Q12H [facility] Rx#:[id number] Zosyn 3.375 GM In 0.9 % Sodium 100 / 100 100 / 100 Chloride (Mini-Bag +) 100 ML @ 25 mls/hr IVPB Q8HR [facility] Rx#: [id number] Potassium Chloride 10 mEq/100mL 100 / 100 10 meq In 100 ml @ 100 mls/hr IVPB Q1H [facility] Rx#:[id number] Blood Product 350 / 350 Rbcs Leuko Poor As-1 Unit 350 / 350 [id number] Output: Gastric Drainage 300 / 300 350 / 350 Wound Drainage 15 / 15 Right Lower Abdomen 15 Other: # Voids 1 # Urine Diapers 1 Blood Glucose* 247 256 - Labs 02/21/18 20:30 02/21/18 04:00 Diabetes panel 02/21/18 Range/Units 04:00 Sodium 145 (136-145) mEq/L Potassium 3.3 L (3.5-5.1) mEq/L Chloride 94 L (98-107) mEq/L Carbon Dioxide > 45 H* (23-29) mEq/L BUN 39 H (8-23) mg/dL Creatinine 0.98 (0.70-1.30) mg/dL Glucose 291 H (70-105) mg/dL Calcium 8.6 (8.6-10.3) mg/dL Calcium panel 02/21/18 Range/Units 04:00 Calcium 8.6 (8.6-10.3) mg/dL Pituitary panel 02/21/18 Range/Units 04:00 Sodium 145 (136-145) mEq/L Potassium 3.3 L (3.5-5.1) mEq/L Chloride 94 L (98-107) mEq/L Carbon Dioxide > 45 H* (23-29) mEq/L BUN 39 H (8-23) mg/dL Creatinine 0.98 (0.70-1.30) mg/dL Glucose 291 H (70-105) mg/dL Calcium 8.6 (8.6-10.3) mg/dL Adrenal panel 02/21/18 Range/Units 04:00 Sodium 145 (136-145) mEq/L Potassium 3.3 L (3.5-5.1) mEq/L Chloride 94 L (98-107) mEq/L Carbon Dioxide > 45 H* (23-29) mEq/L BUN 39 H (8-23) mg/dL Creatinine 0.98 (0.70-1.30) mg/dL Glucose 291 H (70-105) mg/dL Calcium 8.6 (8.6-10.3) mg/dL - Attending Attestation I examined this patient and my medical decision-making was reviewed with the Resident Physician. I agree with the documented findings, disposition and treatment plan as described except to the extent set forth below. I reviewed the above assessment and evaluation and agree with the above plan. Await return of bowel function. Continue with NG tube decompression.
[2018-02-21 16:12] LABS: Hematocrit 35.9 % (37.5-50.1)
[2018-02-21] MEDS: *HR* Metoprolol 5 MG/5 ML VIAL IVP SCH (20:14)
[2018-02-21 20:44] LABS: Hematocrit 35.5 % (37.5-50.1); Hemoglobin 10.8 g/dL (12.9-16.9)
[2018-02-22] MEDS: Doxycycline 100 MG in 0.9 % Sodium Chloride Mini Bag 100 ML IVPB SCH ×2 (00:35→11:43)
[2018-02-22] MEDS: MethylPREDNISolone 40 MG/ML VIAL IVP SCH ×3 (00:36→16:36)
[2018-02-22] MEDS: Piperacillin/Tazobactam 3.375 GM in 0.9 % Sodium Chloride Mini Bag 100 ML IVPB SCH ×3 (00:36→16:36)
[2018-02-22] MEDS: *HR* Metoprolol 5 MG/5 ML VIAL IVP SCH ×3 (00:38→11:43)
[2018-02-22] MEDS: Levalbuterol Neb 1.25 MG/3 ML IH SCH ×4 (05:00→22:05)
[2018-02-22 05:42] LABS: Basophils % 0.1 %; Hematocrit 35.7 % (37.5-50.1); Hemoglobin 10.6 g/dL (12.9-16.9); Lymphocytes # 0.7 K/mcL (0.6-4.6); Lymphocytes % 5.7 %; Mean Corpuscular HGB Conc 29.7 g/dL (31.6-35.5); Mean Corpuscular Volume 94.2 fL (83.0-100.0); Mean Platelet Volume 10.5 fL (9.4-12.4); Monocytes # 0.7 K/mcL (0.0-1.3); Monocytes % 6.3 %; Platelet Count 391 K/mcL (140-400); Red Blood Count 3.79 M/mcL (4.19-5.50); Red Cell Distribution Width 14.2 % (11.5-14.5); Segmented Neutrophils % 86.9 %
[2018-02-22] MEDS: Pantoprazole 40 MG VIAL IVP SCH ×2 (06:02→18:24)
[2018-02-22 06:10] LABS: BUN/Creatinine Ratio 27 (6-26); Blood Urea Nitrogen 32 mg/dL (8-23); Calcium 8.8 mg/dL (8.6-10.3); Carbon Dioxide > 45 mEq/L (23-29); Chloride 97 mEq/L (98-107); Glucose 214 mg/dL (70-105); Osmolality,Calculated 323 (280-300); Potassium 4.2 mEq/L (3.5-5.1); Sodium 150 mEq/L (136-145); eGFR For African Americans > 60 (> 60); eGFR For Non-African Americans > 60 (> 60)
--- NOTE | 2018-02-22 07:53 | Internal Med Progress Note ---
Date of Encounter: 02/22/18 Time of Encounter: 07:51 - Assessment and plan (1) Sepsis Current Visit: No Status: Resolved Assessment and plan: -Most likely secondary to acute cholecystitis - Other possible sources of infection include decub wound ulcer, cellulitis, UTI from chronic Adame catheter - Was admitted on 01/28 with sepsis from UTI and had + MRSA, + E faecalis. He was discharged to SNF and was to complete IV vanc through 02/13. - 3 SIRS criteria on admission: Leukocytosis, fever 100.4 F, tachycardia - Lactic acid wnl on admission - Follow-up blood cultures, urine culture, consult wound care - S/P lap appendectomy 02/18 - most ikely source of infection - Continue Zosyn, Vanc DC'd - ID following Qualifiers: Sepsis type: sepsis due to unspecified organism Qualified Code(s): A41.9 - Sepsis, unspecified organism (2) Acute cholecystitis Current Visit: Yes Status: Acute Assessment and plan: As seen on CT abdomen/Pelvis Status post Lap annie 02/18 - doing well Surgery team following, recommendations appreciated Continue antibiotics Advance diet as tolerated Afebrile, WBC improving, no acute distress (3) Upper GI bleed Current Visit: Yes Status: Acute Assessment and plan: On admission patient had hematemesis. He has recently diagnosed with esophageal cancer after seen on EGD on 01/21 during a recent admission. Xarelto held during this admission. Patient was on protonix drip and symptoms resolved. - EGD 02/19 on this admission showed partially obstructing ulcerating mass that was not actively bleeding but showed stigmata of recent bleeding. - 02/20 had episode of coffee ground emesis in AM with some nausea. H&H 10.0 then went to 8.4, we was given 2 units PRBC. NG Tube placed - 02/21: NG output 2,800 ml fluid coffee ground appearing. H&H stable after transfusion of PRBC. - s/p 2 units PRBC 02/20, stable, vitals improved, no longer hypotensive or tachycardic. - repeat H&H Q6H - GI following, recommendations appreciated - IV ppi stable (4) Hypernatremia Current Visit: Yes Status: Acute Assessment and plan: Patient has free water defecit after having about 3 L out of NG tube. Will start patient with 1/2 NS at 125 ml/hr and recheck BMP at 4 pm. (5) Acute renal failure Current Visit: Yes Status: Deleted Assessment and plan: Possible dye, medication, sepsis related. improved with IV fluids Has been on a slow infusion of IV fluid (50 ml/hr) with a 500 cc bolus on 02/19. Fluids held as renal function back to baseline Qualifiers: Acute renal failure type: unspecified Qualified Code(s): N17.9 - Acute kidney failure, unspecified (6) Acute respiratory failure Current Visit: No Status: Acute Assessment and plan: - Hypoxic in Urology office yesterday - History of COPD and HFpEF. CTA negative for PE/PNA/ pleural effusion - Review of prior discharge seems that patient was discharged on O2, possibly weaned to room air in that time at [facility] - This could be acute on chronic respiratory failure - Initial ABG showed hypoxia at SpO2 85% patient was not on oxygen, with CO2 58 level and compensated pH of 7.46, HCO3 41 patient likely retains CO2 at baseline. - Continue Solu Medrol - taper - Xopenex - Bipap as needed repeat ABG this afternoon Qualifiers: Respiratory failure complication: hypoxia Qualified Code(s): J96.01 - Acute respiratory failure with hypoxia (7) Candiduria Current Visit: Yes Status: Acute Assessment and plan: Hold IV fluid for now. 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 Oncology consulted. (10) Atrial fibrillation with RVR Current Visit: Yes Status: Acute Assessment and plan: - Patient is poor anticoagulation candidate secondary to UGIB. Patient on Labetolol at home but currentlly NPO - Continue IV lopressor scheduled. (11) A-fib Current Visit: No Status: Chronic Assessment and plan: Xarelto held; EGD 02/19 showed esophageal cancer had recent bleed (but not actively bleeding at this point) Takes Labetolol at home - held (NPO) Afib with rvr on 02/19 on cardizem drip - discontinued after one day Scheduled lopressor IV since patient is NPO Qualifiers: Atrial fibrillation type: chronic Qualified Code(s): I48.2 - Chronic atrial fibrillation (12) COPD (chronic obstructive pulmonary disease) Current Visit: No Status: Chronic Assessment and plan: With acute exacerbation and hypoxia Continue Solu Medrol at 40 mg Q12h. Taper dose tomorrow Xopenex Q6H bipap as needed wean O2 as tolerated Qualifiers: COPD type: unspecified COPD Qualified Code(s): J44.9 - Chronic obstructive pulmonary disease, unspecified (13) Decubitus ulcer Current Visit: No Status: Chronic Assessment and plan: Present on admission consult Wound care Qualifiers: Pressure ulcer location: other site Pressure ulcer stage: stage 2 Qualified Code(s): L89.892 - Pressure ulcer of other site, stage 2 (14) Diabetes mellitus Current Visit: No Status: Chronic Assessment and plan: Advance diet per surgery recommendations Goal blood glucose range 140-180 ISS with accuchecks q6h Qualifiers: Diabetes mellitus type: type 2 Diabetes mellitus nursing home insulin use: without nursing home use Diabetes mellitus complication status: with hyperglycemia Qualified Code(s): E11.65 - Type 2 diabetes mellitus with hyperglycemia (15) Hypertension Current Visit: No Status: Chronic Assessment and plan: Home medications: labetolol and lisinopril Patient NPO with NGT unable to take PO medications - Schedule lopressor for HTN and also rate control Qualifiers: Hypertension type: essential hypertension Qualified Code(s): I10 - Essential (primary) hypertension (16) Heart failure Current Visit: Yes Status: Acute Assessment and plan: Patient does not have acute decompensation. Patient has required IV fluids because of dehydration IV fluids replaced judiciously Qualifiers: Heart failure type: diastolic Heart failure chronicity: chronic Qualified Code(s): I50.32 - Chronic diastolic (congestive) heart failure (17) Chronic indwelling Adame catheter Current Visit: No Status: Chronic Assessment and plan: Difficulty placing Adame in. Consult Urology for catheter placement. (18) DVT prophylaxis Current Visit: No Status: Acute Assessment and plan: SCDs - Subjective Interval history: 02/18: laparoscopic cholecystectomy 02/19: EGD done today redemonstrated a large ulcerating mass with no active bleeding but did show evidence of recent bleeding. 02/20: Labetolol was restarted yesterday but patient went into afib with RVR overnight and was then started on a cardizem drip. He had one small episode of coffee ground emesis this morning. Denies fevers/chills, SOB, chest pain. He is compliant with breathing treatment Xopenex but refuses bipap at night because of nausea 02/21: patient had NG tube placed yesterday because of distention and drop in hemoglobin. He was transfused 2 units overnight. Patient stating this morning he is feeling better this morning. NG tube reported by night time nurse that 2, 800 ml fluid removed total since yesterday. At bedside patient HR is 90s sinus rhythm. He denies fevers/chills, nausea has resolved. Denies SOB or chest pain. 02/22: patient had 350 ml out of NG overnight, he states he has been feeling better in the past two days. - Constitutional Vitals: Temp Pulse Resp BP Pulse Ox 98.0 F 134 18 132/80 95 02/22/18 07:08 02/22/18 07:08 02/22/18 07:08 02/22/18 07:08 02/22/18 07:08 General appearance: Present: A&O X 3, morbidly obese, no acute distress, answers questions appropriately Exam: NG tube in place, draining coffee ground appearing material seen in canister. - Head Head exam: Present: atraumatic, normocephalic - ENT ENT exam: Present: mucous membranes moist - Respiratory Respiratory exam: Present: decreased breath sounds. Absent: accessory muscle use, prolonged expiratory phase, wheezes - Cardiovascular Cardiovascular exam: Present: RRR, +S1, +S2. Absent: diastolic murmur, gallop, rubs, systolic murmur - GI/Abdominal GI/Abdominal exam: Present: normal bowel sounds, soft. Absent: distended ( Improved since yesterday), guarding, mass, rebound, tenderness, no peritoneal signs - Extremities Exam Extremities exam: Present: pedal edema Additional comments: bilateral venous stasis changes - Neurological Exam Neurological exam: Present: CN II-XII intact, oriented X3, no focal deficits. Absent: pronater drift, facial droop, speech deficit Internal Medicine: Result - Labs CBC & Chem 7: 02/22/18 04:00 02/22/18 04:00 Labs: Short CBC 02/21/18 02/21/18 02/21/18 Range/Units 07:45 15:30 20:30 WBC (4.3-11.1) K/mcL Hgb 10.7 L 11.0 L 10.8 L (12.9-16.9) g/dL Hct 34.2 L 35.9 L 35.5 L (37.5-50.1) % Plt Count (140-400) K/mcL Neutrophils # (1.6-8.9) K/mcL 02/22/18 Range/Units 04:00 WBC 11.5 H (4.3-11.1) K/mcL Hgb 10.6 L (12.9-16.9) g/dL Hct 35.7 L (37.5-50.1) % Plt Count 391 (140-400) K/mcL Neutrophils # 10.0 H (1.6-8.9) K/mcL BMP 02/22/18 04:00 Sodium 150 H Potassium 4.2 D Chloride 97 L Carbon Dioxide > 45 H* BUN 32 H Creatinine 1.19 Glucose 214 H Calcium 8.8 - ABG Interpretation ABG results: ABG ABG pH 7.43 pH Units (7.32-7.45) 02/20/18 16:11 ABG pCO2 61 mmHg (35-45) H 02/20/18 16:11 ABG pO2 102 mmHg (85-104) 02/20/18 16:11 ABG O2 Saturation 98 % (95-98) 02/20/18 16:11 PT/INR, D-dimer PT 14.4 Seconds (9.4-12.1) H 02/18/18 05:40 - Impressions Impressions KUB X-Ray 02/21/18 12:36 IMPRESSION: NG tube in the stomach with tip above the level of diaphragm. Recommend advancement of the NG tube prior to use. Left pleural effusion with left basilar opacity that may represent atelectasis or consolidation from pneumonia. No evidence of bowel obstruction. D/ / Gunner Najera MD / Gunner Najera MD Interpreting Provider: Gunner Najera MD - VTE Documentation of Mechanical Device: Venous foot pump, device Consult Discharge Plan - Plan Referrals: Bulmaro Negro MD [Primary Care Provider] - 02/25/18 3:00 pm Andrea Hernandez MD [Partnered Physician] - 02/25/19 11:45 am (Please arrive 15 minutes early to appointment.) Suzanne Posadas CNP [Advanced Practice Nurse] - 02/26/18 8:00 am Jovani Goldberg MD [Partnered Physician] - 03/19/18 2:15 pm
[2018-02-22] MEDS ORDERED: Insulin LISPRO 300 UNITS/3 ML VIAL SQ SCH ×3 (07:58→12:00)
[2018-02-22] MEDS: Miconazole 2% ointment 114 GM TUBE TP SCH ×2 (08:42→21:10)
--- NOTE | 2018-02-22 10:02 | General Surgery Progress Note ---
Date of Encounter: 02/22/18 Time of Encounter: 09:45 - Assessment and Plan (1) Acute cholecystitis Current Visit: Yes Status: Acute POD #4 from a laparoscopic cholecystectomy with Dr. Prasad for a necrotic gallbladder Continue DENNY drain 1 Continue IV antibiotics- Zosyn for gallbladder NPO while awaiting return of bowel function X-ray complete this am shows no dilated bowel Place NG to gravity drain (tomlinson bag) Supportive care and pain control Incentive spirometer every 1 hour while awake Increase activity as tolerated (2) Esophageal cancer Current Visit: Yes Status: Acute Patient is status post an EGD with Dr. Rodriguez this morning Qualifiers: Malignant neoplasm of esophagus location: lower third Qualified Code(s): C15.5 - Malignant neoplasm of lower third of esophagus (3) Ileus, postoperative Current Visit: Yes Status: Acute NG tube in place Place to gravity drain today (tomlinson bag) NPO Subjective Patient reports: no new complaints, feels better, still having pain, pain is less, voiding w/o difficulty, no flatus, bowel movement (yesterday), afebrile Objective Vital Signs - Last 8 Hours Temp Pulse Resp BP Pulse Ox 02/22/18 07:08 98.0 F 134 18 132/80 95 02/22/18 05:00 16 98 02/22/18 03:13 98.5 F 89 141/86 97 Intake and Output 02/21/18 02/22/18 02/22/18 23:59 07:59 15:59 Intake Total 450 / 450 200 / 200 Output Total 350 / 350 400 / 400 Balance 100 / 100 -200 / -200 Intake: IV Fluids 100 / 100 200 / 200 Doxycycline 100 MG In 0.9 % 100 / 100 Sodium Chloride (Mini-Bag +) 100 ML @ 100 mls/hr IVPB Q12H [facility] Rx#:[id number] Zosyn 3.375 GM In 0.9 % Sodium 100 / 100 100 / 100 Chloride (Mini-Bag +) 100 ML @ 25 mls/hr IVPB Q8HR [facility] Rx#: [id number] Blood Product 350 / 350 Rbcs Leuko Poor As-1 Unit 350 / 350 [id number] Output: Gastric Drainage 350 / 350 400 / 400 Right Nare 400 / 400 Other: Meal Breakfast Percent of Meal Consumed 0% # Urine Diapers 1 Blood Glucose* 256 198 - General physical appearance well developed, no distress, chronically ill, obese - Eyes normal ocular movement - ENT normal mucosa, atraumatic, normocephalic - Neck Neck exam: trachea midline - Respiratory normal respiratory effort, clear to auscultation, other (diminished bibasilar bases) - Cardiovascular Cardiovascular exam: Present: RRR - Abdomen Abdomen: Present: bowel sounds present, soft, tender (minimal, expected tenderness), wound (DENNY drain to bulb suction with serousang. drainage noted ) - Incision Incision: Present: clean and dry, intact - Neurologic CN 2-12 grossly intact - Musculoskeletal other (physical deconditioning) - Psychiatric oriented to person, oriented to place, speech is normal, memory intact - Labs 02/22/18 04:00 02/22/18 04:00 Diabetes panel 02/22/18 Range/Units 04:00 Sodium 150 H (136-145) mEq/L Potassium 4.2 D (3.5-5.1) mEq/L Chloride 97 L (98-107) mEq/L Carbon Dioxide > 45 H* (23-29) mEq/L BUN 32 H (8-23) mg/dL Creatinine 1.19 (0.70-1.30) mg/dL Glucose 214 H (70-105) mg/dL Calcium 8.8 (8.6-10.3) mg/dL Calcium panel 02/22/18 Range/Units 04:00 Calcium 8.8 (8.6-10.3) mg/dL Pituitary panel 02/22/18 Range/Units 04:00 Sodium 150 H (136-145) mEq/L Potassium 4.2 D (3.5-5.1) mEq/L Chloride 97 L (98-107) mEq/L Carbon Dioxide > 45 H* (23-29) mEq/L BUN 32 H (8-23) mg/dL Creatinine 1.19 (0.70-1.30) mg/dL Glucose 214 H (70-105) mg/dL Calcium 8.8 (8.6-10.3) mg/dL Adrenal panel 02/22/18 Range/Units 04:00 Sodium 150 H (136-145) mEq/L Potassium 4.2 D (3.5-5.1) mEq/L Chloride 97 L (98-107) mEq/L Carbon Dioxide > 45 H* (23-29) mEq/L BUN 32 H (8-23) mg/dL Creatinine 1.19 (0.70-1.30) mg/dL Glucose 214 H (70-105) mg/dL Calcium 8.8 (8.6-10.3) mg/dL - VTE Documentation of Mechanical Device: Venous foot pump, device Consult Discharge Plan - Plan Referrals: Bulmaro Negro MD [Primary Care Provider] - 02/25/18 3:00 pm Andrea Hernandez MD [Partnered Physician] - 02/25/19 11:45 am (Please arrive 15 minutes early to appointment.) Suzanne Posadas CNP [Advanced Practice Nurse] - 02/26/18 8:00 am Jovani Goldberg MD [Partnered Physician] - 03/19/18 2:15 pm - Attending Attestation For this encounter, I have reviewed the IT GENERALIST or PA documentation, treatment plan, and medical decision making; and I have had face to face time with this patient.
[2018-02-22] MEDS ORDERED: Chloraseptic Spray 177 ML BOTTLE MM PRN (10:31)
--- NOTE | 2018-02-22 11:04 | Infectious Disease Progress No ---
Date of Encounter: 02/22/18 Time of Encounter: 09:35 - Assessment and Plan (1) Acute cholecystitis Current Visit: Yes Status: Acute Postoperative day 4 from microscopic cholecystectomy and necrotic gallbladder - IV Zosyn- day 6 - Completed IV vancomycin 02/19/2018 (2) History of bacteremia Current Visit: Yes Status: Acute Blood cultures drawn 01/15/18 were positive 2/2 sets for MRSA. Repeat blood cultures drawn 01/16/18 were negative x 2 sets. Treated with 4 weeks of IV Vancomycin and was transitioned to PO doxycycline on Thursday. Blood cultures drawn 02/17/18 are NGTD x 2 sets. ( Started 02/21/2018 )Doxycycline 100mg PO BID to complete the 14 day course previously outlined by the outpatient ID clinic. Monitor renal function and dose-adjust antibiotics. (3) Complicated UTI (urinary tract infection) Current Visit: Yes Status: Acute Urine culture negative for bacteria, only positive for mann urea growing Mann albicans. - No indication to treat at this time. (4) Acute respiratory failure with hypoxia and hypercapnia Current Visit: No Status: Acute Required BIPAP post-op and transfer to , improving, currently on 4 L nasal cannula oxygen. - Further management per the primary team. (5) Esophageal cancer Current Visit: Yes Status: Acute Recent diagnosis of ulcerating esophageal cancer in the distal one third of the esophagus diagnosed about 2 weeks ago. Scheduled to follow up with [facility]. Not currently on any treatment. Qualifiers: Malignant neoplasm of esophagus location: lower third Qualified Code(s): C15.5 - Malignant neoplasm of lower third of esophagus (6) Venous stasis Current Visit: No Status: Acute (7) Morbid obesity with BMI of 45.0-49.9, adult Current Visit: No Status: Chronic Management per primary team. (8) Leukocytosis Current Visit: Yes Status: Acute Improving. Hospital max at 27.2, currently 11.5 - Trending down appropriately. - Likely secondary to acute cholecystitis. Qualifiers: Leukocytosis type: unspecified Qualified Code(s): D72.829 - Elevated white blood cell count, unspecified - Subjective Interval history: Mr. Jimenez 9-year-old male seen about a patient bedside this morning. He is very tired answers with single word answers. He denies any current pain, fevers, chills, sweating, abdominal pain, nausea vomiting. He has an NG tube and tolerating this well at this time. He denies any other concerns. Infect Dis PN-Objective Data - Labs CBC & Chem 7: 02/22/18 04:00 02/22/18 16:00 Labs: Laboratory Results - last 24 hr 02/20/18 02/21/18 02/21/18 16:16 11:09 15:30 WBC RBC Hgb 11.0 L Hct 35.9 L MCV MCH MCHC RDW Plt Count MPV Immature Gran % Seg Neutrophils % Lymphocytes % Monocytes % Eosinophils % Basophils % Neutrophils # Lymphocytes # Monocytes # Eosinophils # Basophils # Sodium Potassium Chloride Carbon Dioxide BUN Creatinine Est GFR ( Amer) Est GFR (Non-Af Amer) BUN/Creatinine Ratio Glucose POC Glucose 247 H Calculated Osmolality Calcium Crossmatch See Detail 02/21/18 02/22/18 02/22/18 20:30 04:00 04:00 WBC 11.5 H RBC 3.79 L Hgb 10.8 L 10.6 L Hct 35.5 L 35.7 L MCV 94.2 MCH 28.0 MCHC 29.7 L RDW 14.2 Plt Count 391 MPV 10.5 Immature Gran % 1.0 Seg Neutrophils % 86.9 Lymphocytes % 5.7 Monocytes % 6.3 Eosinophils % 0.0 Basophils % 0.1 Neutrophils # 10.0 H Lymphocytes # 0.7 Monocytes # 0.7 Eosinophils # 0.0 Basophils # 0.0 Sodium 150 H Potassium 4.2 D Chloride 97 L Carbon Dioxide > 45 H* BUN 32 H Creatinine 1.19 Est GFR ( Amer) > 60 Est GFR (Non-Af Amer) > 60 BUN/Creatinine Ratio 27 H Glucose 214 H POC Glucose Calculated Osmolality 323 H Calcium 8.8 Crossmatch Cultures: Serology 02/18/18 Range/Units 04:50 Gastric Occult Blood Positive A (Negative) - Impressions Impressions KUB X-Ray 02/21/18 12:36 IMPRESSION: NG tube in the stomach with tip above the level of diaphragm. Recommend advancement of the NG tube prior to use. Left pleural effusion with left basilar opacity that may represent atelectasis or consolidation from pneumonia. No evidence of bowel obstruction. D/ / Gunner Najera MD / Gunner Najera MD Interpreting Provider: Gunner Najera MD Abdomen X-Ray 02/22/18 07:39 IMPRESSION: Nasogastric tube tip projects over the proximal gastric body. D/ / 02/22/2018 08:49:26 Carolin Spear MD / Sunshine Vargas Interpreting Provider: Carolin Spear MD Exam - Constitutional Vitals: Temp Pulse Resp BP Pulse Ox 98.0 F 134 18 132/80 94 02/22/18 07:08 02/22/18 07:08 02/22/18 10:14 02/22/18 07:08 02/22/18 10:14 Exam: General: Patient alert, interactive, NG tube in place on gravity. HEENT: Normocephalic, atraumatic, oral mucosa dry,, neck supple trachea midline no palpable lymphadenopathy, no thyromegaly. Chest: Symmetric bilateral correlating with respiratory effort, effort nonlabored. Cardiac: Irregularly irregular heart rate and rhythm, radial pulses 2+ bilateral Respiratory: Clear to auscultation Abdomen: Soft, morbidly obese, nontender, hypoactive bowel sounds, DENNY drain in right upper quadrant with serosanguineous drainage. midline hernia, no palpable masses appreciated on examination Extremities: Symmetric bilateral, bilateral lower studies demonstrate venous stasis with mild edema. No noticed ulcers or wounds. Neurologic: No focal deficits appreciated on examination. Face symmetric, muscle strength symmetric bilateral upper and lower extremities. - VTE Documentation of Mechanical Device: Venous foot pump, device Consult Discharge Plan - Plan Referrals: Bulmaro Negro MD [Primary Care Provider] - 02/25/18 3:00 pm Andrea Hernandez MD [Partnered Physician] - 02/25/19 11:45 am (Please arrive 15 minutes early to appointment.) Suzanne Posadas CNP [Advanced Practice Nurse] - 02/26/18 8:00 am Jovani Goldberg MD [Partnered Physician] - 03/19/18 2:15 pm - Attending Attestation I examined this patient and my medical decision-making was reviewed with the Resident Physician. I agree with the documented findings, disposition and treatment plan as described except to the extent set forth below.
--- NOTE | 2018-02-22 12:28 | Electrocardiograph Report ---
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
[2018-02-22 17:10] LABS: BUN/Creatinine Ratio 25 (6-26); Blood Urea Nitrogen 29 mg/dL (8-23); Calcium 8.6 mg/dL (8.6-10.3); Carbon Dioxide 43 mEq/L (23-29); Chloride 100 mEq/L (98-107); Glucose 228 mg/dL (70-105); Osmolality,Calculated 319 (280-300); Potassium 3.8 mEq/L (3.5-5.1); Sodium 148 mEq/L (136-145); eGFR For African Americans > 60 (> 60); eGFR For Non-African Americans > 60 (> 60)
[2018-02-22] MEDS ORDERED: *HR* Metoprolol 5 MG/5 ML VIAL IVP SCH (18:44)
[2018-02-22] MEDS: Insulin LISPRO 300 UNITS/3 ML VIAL SQ SCH (21:09)
[2018-02-23] MEDS: Doxycycline 100 MG in 0.9 % Sodium Chloride Mini Bag 100 ML IVPB SCH (00:14)
[2018-02-23] MEDS: MethylPREDNISolone 40 MG/ML VIAL IVP SCH ×2 (00:16→07:54)
[2018-02-23] MEDS: Piperacillin/Tazobactam 3.375 GM in 0.9 % Sodium Chloride Mini Bag 100 ML IVPB SCH ×2 (00:18→07:55)
[2018-02-23 04:16] LABS: Basophils % 0.1 %; Eosinophils % 0.2 %; Hematocrit 31.4 % (37.5-50.1); Hemoglobin 9.5 g/dL (12.9-16.9); Immature Granulocytes % 1.3 % (0-4); Lymphocytes # 0.8 K/mcL (0.6-4.6); Lymphocytes % 6.2 %; Mean Corpuscular HGB Conc 30.3 g/dL (31.6-35.5); Mean Corpuscular Hemoglobin 28.3 pg (28.0-33.3); Mean Corpuscular Volume 93.5 fL (83.0-100.0); Mean Platelet Volume 10.6 fL (9.4-12.4); Monocytes # 0.6 K/mcL (0.0-1.3); Monocytes % 5.3 %; Neutrophils # 10.4 K/mcL (1.6-8.9); Platelet Count 340 K/mcL (140-400); Red Blood Count 3.36 M/mcL (4.19-5.50); Segmented Neutrophils % 86.9 %
[2018-02-23] MEDS: Levalbuterol Neb 1.25 MG/3 ML IH SCH ×4 (04:35→23:14)
[2018-02-23 04:36] LABS: BUN/Creatinine Ratio 25 (6-26); Blood Urea Nitrogen 27 mg/dL (8-23); Calcium 8.1 mg/dL (8.6-10.3); Carbon Dioxide 39 mEq/L (23-29); Chloride 97 mEq/L (98-107); Glucose 278 mg/dL (70-105); Osmolality,Calculated 307 (280-300); Potassium 3.8 mEq/L (3.5-5.1); Sodium 141 mEq/L (136-145); eGFR For African Americans > 60 (> 60); eGFR For Non-African Americans > 60 (> 60)
[2018-02-23] MEDS: Pantoprazole 40 MG VIAL IVP SCH ×2 (06:02→17:45)
[2018-02-23] MEDS: Insulin LISPRO 300 UNITS/3 ML VIAL SQ SCH ×4 (07:56→21:51)
--- NOTE | 2018-02-23 08:53 | General Surgery Progress Note ---
Date of Encounter: 02/23/18 Time of Encounter: 08:45 - Assessment and Plan (1) Acute cholecystitis Current Visit: Yes Status: Acute POD #5 from a laparoscopic cholecystectomy with Dr. Prasad for a necrotic gallbladder. NG tube was discontinued yesterday after minimal drainage in Adame DENNY drain removed by [employer]UC[employer] ASSISTANT TE[employer]ER. Continue IV antibiotics- Zosyn for gallbladder Advance diet as tolerated. Diabetic diet for lunch. Supportive care and pain control Incentive spirometer every 1 hour while awake Increase activity as tolerated Awaiting return of bowel function surgery will sign off at this time. Thank you for allowing surgery to participate in this patient's care. (2) Status post laparoscopic cholecystectomy Current Visit: Yes Status: Acute POD #5 from a laparoscopic cholecystectomy with Dr. Prasad for a necrotic gallbladder. See plan as above. (3) Esophageal cancer Current Visit: Yes Status: Acute Patient had EGD 01/21/18 which revealed a medium sized hiatal hernia, Fong's esophagus, and malignant esophageal tumor in the lower third of the esophagus. Pathology revealed high grade malignant neoplasm compatible with poorly differentiated carcinoma. Patient is status post an EGD with Dr. Rodriguez on 02/19/2018. EGD showed partially obstructing ulcerating mass that was not actively bleeding. Qualifiers: Malignant neoplasm of esophagus location: lower third Qualified Code(s): C15.5 - Malignant neoplasm of lower third of esophagus (4) Ileus, postoperative Current Visit: Yes Status: Acute Patient admits minimal flatus but denies bowel movements. NG tube was discontinued yesterday. Plan: Advance diet as tolerated. Await for return of bowel functions Recommend PT/OT Encourage patient to get OOTB at least three times a day Encourage ambulating hallways with assistance Subjective Patient reports: no new complaints, feels better (The patient states he feels significantly better compared to yesterday. The patient admits soreness in his abdomen, but he denies any other pain.), pain is less, tolerating liquids well ( The patient is tolerating his liquid diet without any nausea, vomiting, or any difficulty. The patient states that he would like a regular diet as soon as possible.), flatus (He admits passing minimal flatus), no bowel movement (The patient states that his last bowel movement was the night before yesterday. He denies any bowel movements last night or today.), afebrile Objective Vital Signs - Last 8 Hours Temp Pulse Resp BP Pulse Ox 02/23/18 07:50 98.4 F 60 17 134/92 100 02/23/18 04:35 17 96 02/23/18 03:29 97.4 F L 63 18 130/86 98 Intake and Output 02/22/18 02/23/18 02/23/18 23:59 07:59 15:59 Intake Total 2560 / 2560 1540 / 1540 Output Total 20 / 20 Balance 2540 / 2540 1540 / 1540 Intake: IV Fluids 200 / 200 100 / 100 Doxycycline 100 MG In 0.9 % 100 / 100 Sodium Chloride (Mini-Bag +) 100 ML @ 100 mls/hr IVPB Q12H [facility] Rx#:[id number] Zosyn 3.375 GM In 0.9 % Sodium 100 / 100 100 / 100 Chloride (Mini-Bag +) 100 ML @ 25 mls/hr IVPB Q8HR [facility] Rx#: [id number] Oral 2360 / 2360 1440 / 1440 Output: Wound Drainage 20 / 20 Right Lower Abdomen 20 / 20 Other: Meal Dinner Percent of Meal Consumed 100% # Urine Diapers 1 Weight 129.3 kg Blood Glucose* 381 245 Patient Weight 02/23/18 23:59 Weight 129.3 kg - General physical appearance well developed, no distress, obese - Eyes PERRL, normal ocular movement - ENT normal mucosa - Neck Neck exam: trachea midline - Respiratory normal expansion, normal respiratory effort, other (Dry cough on exam. Course breath sounds bilaterally in the anterior dixon. Patient is currently on 4 L of nasal cannula 100% oxygen saturation.) - Cardiovascular Cardiovascular exam: Present: RRR, no murmurs/rubs/gallops - Abdomen Abdomen: Present: bowel sounds present (Hyperactive bowel sounds in all 4 quadrants.), soft, tender (Minimal tenderness to palpation. Expected postoperative tenderness.), wound (DENNY drain to bulb suction with serousangious drainage noted). Absent: guarding, rebound, rigid - Incision Incision: Present: clean and dry, intact. Absent: draining, purulent - Integumentary no rash - Neurologic CN 2-12 grossly intact - Psychiatric oriented to time, oriented to person, oriented to place, speech is normal - Labs 02/23/18 04:00 02/23/18 04:00 Diabetes panel 02/22/18 02/23/18 Range/Units 16:00 04:00 Sodium 148 H 141 (136-145) mEq/L Potassium 3.8 3.8 (3.5-5.1) mEq/L Chloride 100 97 L (98-107) mEq/L Carbon Dioxide 43 H* 39 H (23-29) mEq/L BUN 29 H 27 H (8-23) mg/dL Creatinine 1.15 1.06 (0.70-1.30) mg/dL Glucose 228 H 278 H (70-105) mg/dL Calcium 8.6 8.1 L (8.6-10.3) mg/dL Calcium panel 02/22/18 02/23/18 Range/Units 16:00 04:00 Calcium 8.6 8.1 L (8.6-10.3) mg/dL Pituitary panel 02/22/18 02/23/18 Range/Units 16:00 04:00 Sodium 148 H 141 (136-145) mEq/L Potassium 3.8 3.8 (3.5-5.1) mEq/L Chloride 100 97 L (98-107) mEq/L Carbon Dioxide 43 H* 39 H (23-29) mEq/L BUN 29 H 27 H (8-23) mg/dL Creatinine 1.15 1.06 (0.70-1.30) mg/dL Glucose 228 H 278 H (70-105) mg/dL Calcium 8.6 8.1 L (8.6-10.3) mg/dL Adrenal panel 02/22/18 02/23/18 Range/Units 16:00 04:00 Sodium 148 H 141 (136-145) mEq/L Potassium 3.8 3.8 (3.5-5.1) mEq/L Chloride 100 97 L (98-107) mEq/L Carbon Dioxide 43 H* 39 H (23-29) mEq/L BUN 29 H 27 H (8-23) mg/dL Creatinine 1.15 1.06 (0.70-1.30) mg/dL Glucose 228 H 278 H (70-105) mg/dL Calcium 8.6 8.1 L (8.6-10.3) mg/dL - VTE Documentation of Mechanical Device: Venous foot pump, device Consult Discharge Plan - Plan Referrals: Bulmaro Negro MD [Primary Care Provider] - 02/25/18 3:00 pm Andrea Hernandez MD [Partnered Physician] - 02/25/19 11:45 am (Please arrive 15 minutes early to appointment.) Jovani Goldberg MD [Partnered Physician] - 03/19/18 2:15 pm Jazmine Mi CNP [Advanced Practice Nurse] - 03/04/18 9:30 am (f/u yamil valencia 02/18)
--- NOTE | 2018-02-23 09:23 | Infectious Disease Progress No ---
Date of Encounter: 02/23/18 Time of Encounter: 09:22 - Assessment and Plan (1) Acute cholecystitis Current Visit: Yes Status: Acute Postoperative day 4 from microscopic cholecystectomy and necrotic gallbladder - Discontinue Zosyn and start Augmentin PO with completion date 02/27 - Completed IV Vancomycin 02/19/2018 (2) History of bacteremia Current Visit: Yes Status: Acute Blood cultures drawn 01/15/18 were positive 2/2 sets for MRSA. Repeat blood cultures drawn 01/16/18 were negative x 2 sets. Blood cultures drawn 02/17/18 are NGTD x 2 sets. Continue Doxycycline 100mg PO BID to complete on 02/27 Monitor renal function and dose-adjust antibiotics. (3) Complicated UTI (urinary tract infection) Current Visit: Yes Status: Acute Urine culture negative for bacteria, only positive for mann urea growing Mann albicans. - No indication to treat at this time. (4) Acute respiratory failure with hypoxia and hypercapnia Current Visit: No Status: Acute Required BIPAP post-op and transfer to , improving, currently on 4 L nasal cannula oxygen. - Further management per the primary team. (5) Esophageal cancer Current Visit: Yes Status: Acute Recent diagnosis of ulcerating esophageal cancer in the distal one third of the esophagus diagnosed about 2 weeks ago. Scheduled to follow up with [facility]. Not currently on any treatment. Qualifiers: Malignant neoplasm of esophagus location: lower third Qualified Code(s): C15.5 - Malignant neoplasm of lower third of esophagus (6) Venous stasis Current Visit: No Status: Acute (7) Morbid obesity with BMI of 45.0-49.9, adult Current Visit: No Status: Chronic Management per primary team. (8) Leukocytosis Current Visit: Yes Status: Acute Improving. Hospital max at 27.2, currently 12.0 - Trending down appropriately. - Likely secondary to acute cholecystitis. Qualifiers: Leukocytosis type: unspecified Qualified Code(s): D72.829 - Elevated white blood cell count, unspecified - Subjective Interval history: Mr. Jimenez 72-year-old male seen about a patient bedside this morning. He is alert awake interactive no acute distress answering questions appropriately. He denies any pain just some mild abdominal wall discomfort. Denies any subjective fevers, chills, diaphoresis, nausea vomiting diarrhea or constipation. He has no other complaints at this time feels like he is improving. Understands treatment duration of antibiotics. Infect Dis PN-Objective Data - Labs CBC & Chem 7: 02/23/18 04:00 02/23/18 04:00 Labs: Laboratory Results - last 24 hr 02/21/18 02/21/18 02/21/18 16:08 19:42 19:43 WBC RBC Hgb Hct MCV MCH MCHC RDW Plt Count MPV Immature Gran % Seg Neutrophils % Lymphocytes % Monocytes % Eosinophils % Basophils % Neutrophils # Lymphocytes # Monocytes # Eosinophils # Basophils # Sodium Potassium Chloride Carbon Dioxide BUN Creatinine Est GFR ( Amer) Est GFR (Non-Af Amer) BUN/Creatinine Ratio Glucose POC Glucose 262 H 249 H 256 H Calculated Osmolality Calcium 02/22/18 02/22/18 02/22/18 07:09 11:22 16:00 WBC RBC Hgb Hct MCV MCH MCHC RDW Plt Count MPV Immature Gran % Seg Neutrophils % Lymphocytes % Monocytes % Eosinophils % Basophils % Neutrophils # Lymphocytes # Monocytes # Eosinophils # Basophils # Sodium 148 H Potassium 3.8 Chloride 100 Carbon Dioxide 43 H* BUN 29 H Creatinine 1.15 Est GFR ( Amer) > 60 Est GFR (Non-Af Amer) > 60 BUN/Creatinine Ratio 25 Glucose 228 H POC Glucose 198 H 222 H Calculated Osmolality 319 H Calcium 8.6 02/22/18 02/22/18 02/23/18 16:57 20:24 04:00 WBC 12.0 H RBC 3.36 L Hgb 9.5 L Hct 31.4 L MCV 93.5 MCH 28.3 MCHC 30.3 L RDW 14.0 Plt Count 340 MPV 10.6 Immature Gran % 1.3 Seg Neutrophils % 86.9 Lymphocytes % 6.2 Monocytes % 5.3 Eosinophils % 0.2 Basophils % 0.1 Neutrophils # 10.4 H Lymphocytes # 0.8 Monocytes # 0.6 Eosinophils # 0.0 Basophils # 0.0 Sodium Potassium Chloride Carbon Dioxide BUN Creatinine Est GFR ( Amer) Est GFR (Non-Af Amer) BUN/Creatinine Ratio Glucose POC Glucose 201 H 381 H Calculated Osmolality Calcium 02/23/18 04:00 WBC RBC Hgb Hct MCV MCH MCHC RDW Plt Count MPV Immature Gran % Seg Neutrophils % Lymphocytes % Monocytes % Eosinophils % Basophils % Neutrophils # Lymphocytes # Monocytes # Eosinophils # Basophils # Sodium 141 Potassium 3.8 Chloride 97 L Carbon Dioxide 39 H BUN 27 H Creatinine 1.06 Est GFR ( Amer) > 60 Est GFR (Non-Af Amer) > 60 BUN/Creatinine Ratio 25 Glucose 278 H POC Glucose Calculated Osmolality 307 H Calcium 8.1 L Cultures: Serology 02/18/18 Range/Units 04:50 Gastric Occult Blood Positive A (Negative) Exam - Constitutional Vitals: Temp Pulse Resp BP Pulse Ox 98.4 F 60 17 134/92 100 02/23/18 07:50 02/23/18 07:50 02/23/18 07:50 02/23/18 07:50 02/23/18 07:50 Exam: General: Patient alert, interactive, no acute distress HEENT: Normocephalic, atraumatic, oral mucosa dry,, neck supple trachea midline no palpable lymphadenopathy Chest: Symmetric bilateral correlating with respiratory effort, effort nonlabored. Cardiac: Irregularly irregular heart rate and rhythm, radial pulses 2+ bilateral Respiratory: Clear to auscultation Abdomen: Soft, morbidly obese, nontender, + bowel sounds, DENNY drain in right upper quadrant with serosanguineous drainage. midline hernia, no palpable masses appreciated on examination Extremities: Symmetric bilateral, bilateral lower studies demonstrate venous stasis with mild edema. No noticed ulcers or wounds. Neurologic: No focal deficits appreciated on examination. Face symmetric, muscle strength symmetric bilateral upper and lower extremities. - VTE Documentation of Mechanical Device: Venous foot pump, device Consult Discharge Plan - Plan Referrals: Bulmaro Negro MD [Primary Care Provider] - 02/25/18 3:00 pm Andrea Hernandez MD [Partnered Physician] - 02/25/19 11:45 am (Please arrive 15 minutes early to appointment.) Jazmine Mi CNP [Advanced Practice Nurse] - 03/04/18 9:30 am (f/u lap annie 02/18) Jovani Goldberg MD [Partnered Physician] - 03/19/18 2:15 pm - Attending Attestation I examined this patient and my medical decision-making was reviewed with the Resident Physician. I agree with the documented findings, disposition and treatment plan as described except to the extent set forth below.
--- NOTE | 2018-02-23 10:16 | Internal Med Progress Note ---
Date of Encounter: 02/23/18 Time of Encounter: 08:30 - Assessment and plan (1) Esophageal cancer Current Visit: Yes Status: Acute Assessment and plan: Distal third of the esophagus noted on EGD. Oncology follow-up upon discharge from hospital. Qualifiers: Malignant neoplasm of esophagus location: lower third Qualified Code(s): C15.5 - Malignant neoplasm of lower third of esophagus (2) Acute cholecystitis Current Visit: Yes Status: Acute Assessment and plan: Status post laparoscopic cholecystectomy done on 02/18/2018. General surgery is following. Patient has been on Zosyn and is now changed to ampicillin by mouth as recommended by infectious disease. Patient to complete course of antibiotic on February 27, 2018 (3) Heart failure Current Visit: Yes Status: Acute Assessment and plan: Patient with acute on chronic diastolic CHF. Blood pressure is now controlled. May need additional Lasix. We will continue to monitor. Qualifiers: Heart failure type: diastolic Heart failure chronicity: chronic Qualified Code(s): I50.32 - Chronic diastolic (congestive) heart failure (4) Candiduria Current Visit: Yes Status: Acute Assessment and plan: No treatment indicated at this time. (5) Acute renal failure Current Visit: Yes Status: Deleted Assessment and plan: Resolved. Avoid nephrotoxins as best able. Qualifiers: Acute renal failure type: unspecified Qualified Code(s): N17.9 - Acute kidney failure, unspecified (6) Atrial fibrillation with RVR Current Visit: Yes Status: Acute Assessment and plan: Rate controlled. No anticoagulation given recent upper GI bleed (7) Upper GI bleed Current Visit: Yes Status: Acute Assessment and plan: EGD results as noted. Continues on Protonix. Hemoglobin remained stable. (8) Hypernatremia Current Visit: Yes Status: Acute Assessment and plan: Resolved. (9) Acute respiratory failure Current Visit: No Status: Acute Assessment and plan: Stable, monitor. CPAP at night. Qualifiers: Respiratory failure complication: hypoxia Qualified Code(s): J96.01 - Acute respiratory failure with hypoxia (10) Hypertension Current Visit: No Status: Chronic Assessment and plan: Reasonable control presently. Continue current medications. Qualifiers: Hypertension type: essential hypertension Qualified Code(s): I10 - Essential (primary) hypertension (11) DVT prophylaxis Current Visit: No Status: Acute Assessment and plan: SCDs. (12) Sepsis Current Visit: No Status: Resolved Assessment and plan: Resolved Qualifiers: Sepsis type: sepsis due to unspecified organism Qualified Code(s): A41.9 - Sepsis, unspecified organism (13) Diabetes mellitus Current Visit: No Status: Chronic Assessment and plan: Blood sugar control is slowly improving. We will likely add long-acting insulin. Kidney sliding scale. Qualifiers: Diabetes mellitus type: type 2 Diabetes mellitus senior living insulin use: without senior living use Diabetes mellitus complication status: with hyperglycemia Qualified Code(s): E11.65 - Type 2 diabetes mellitus with hyperglycemia (14) A-fib Current Visit: No Status: Chronic Qualifiers: Atrial fibrillation type: chronic Qualified Code(s): I48.2 - Chronic atrial fibrillation (15) COPD (chronic obstructive pulmonary disease) Current Visit: No Status: Chronic Qualifiers: COPD type: unspecified COPD Qualified Code(s): J44.9 - Chronic obstructive pulmonary disease, unspecified (16) Chronic indwelling Adame catheter Current Visit: No Status: Chronic (17) Metastatic disease Current Visit: No Status: Acute (18) Decubitus ulcer Current Visit: No Status: Chronic Qualifiers: Pressure ulcer location: other site Pressure ulcer stage: stage 2 Qualified Code(s): L89.892 - Pressure ulcer of other site, stage 2 - Time Spent With Patient Total time spent is greater than 50% in coordination of care (as documented) at patient's floor/unit and/or counseling patient: - Subjective Interval history: CC: Weakness I have assumed care of this patient. Hospital records reviewed. Patient is currently status post laparoscopic cholecystectomy performed on 02/18/2017. EGD done on February 19 showed a large ulcerative mass of the distal third of the esophagus. Patient did have a postoperative NG tube which has been removed last night as he had a bowel movement and he is now tolerating orals. He denies any nausea or vomiting presently. No fevers or chills. No chest pain or shortness of breath. He states he feels very weak. - Constitutional Vitals: Temp Pulse Resp BP Pulse Ox 98.4 F 60 17 134/92 100 02/23/18 07:50 02/23/18 07:50 02/23/18 07:50 02/23/18 07:50 02/23/18 07:50 General appearance: Present: A&O X 3, morbidly obese, no acute distress, answers questions appropriately - Head Head exam: Present: atraumatic, normocephalic - Eye Eye exam: Present: PERRL, conjuntiva pink, sclera anicteric Pupils: Present: PERRL - Neck Neck exam general surgery: Present: supple, trachea midline. Absent: lymphadenopathy - Respiratory Respiratory exam: Present: decreased breath sounds - Cardiovascular Cardiovascular exam: Present: RRR, +S1, +S2. Absent: diastolic murmur, gallop, rubs, systolic murmur - GI/Abdominal GI/Abdominal exam: Present: normal bowel sounds, soft, no peritoneal signs. Absent: distended, tenderness Additional comments: Wound covered - Extremities Exam Extremities exam: Present: pedal edema (2+ pitting edema bilaterally) - Neurological Exam Neurological exam: Present: CN II-XII intact, oriented X3, no focal deficits. Absent: pronater drift, facial droop, speech deficit Internal Medicine: Result - Labs CBC & Chem 7: 02/23/18 04:00 02/23/18 04:00 Labs: Short CBC 02/23/18 Range/Units 04:00 WBC 12.0 H (4.3-11.1) K/mcL Hgb 9.5 L (12.9-16.9) g/dL Hct 31.4 L (37.5-50.1) % Plt Count 340 (140-400) K/mcL Neutrophils # 10.4 H (1.6-8.9) K/mcL BMP 02/22/18 02/23/18 16:00 04:00 Sodium 148 H 141 Potassium 3.8 3.8 Chloride 100 97 L Carbon Dioxide 43 H* 39 H BUN 29 H 27 H Creatinine 1.15 1.06 Glucose 228 H 278 H Calcium 8.6 8.1 L - ABG Interpretation ABG results: ABG ABG pH 7.43 pH Units (7.32-7.45) 02/20/18 16:11 ABG pCO2 61 mmHg (35-45) H 02/20/18 16:11 ABG pO2 102 mmHg (85-104) 02/20/18 16:11 ABG O2 Saturation 98 % (95-98) 02/20/18 16:11 PT/INR, D-dimer PT 14.4 Seconds (9.4-12.1) H 02/18/18 05:40 - VTE Documentation of Mechanical Device: Venous foot pump, device Consult Discharge Plan - Plan Referrals: Bulmaro Negro MD [Primary Care Provider] - 02/25/18 3:00 pm Andrea Hernandez MD [Partnered Physician] - 02/25/19 11:45 am (Please arrive 15 minutes early to appointment.) Suzanne Posadas CNP [Advanced Practice Nurse] - 02/26/18 8:00 am Jovani Goldberg MD [Partnered Physician] - 03/19/18 2:15 pm
[2018-02-23] MEDS: Miconazole 2% ointment 114 GM TUBE TP SCH ×2 (10:33→21:51)
[2018-02-23] MEDS: Doxycycline 100 MG CAPSULE PO SCH ×2 (11:28→21:50)
[2018-02-23] MEDS ORDERED: Amoxicillin 500 MG CAPSULE PO SCH (16:00)
[2018-02-23] MEDS: Insulin DETEMIR 100 UNIT/ML X5UNITS SQ SCH (21:50)
[2018-02-24] MEDS: Levalbuterol Neb 1.25 MG/3 ML IH SCH ×4 (03:18→22:31)
[2018-02-24] MEDS: Pantoprazole 40 MG VIAL IVP SCH ×2 (04:57→17:49)
[2018-02-24 05:22] LABS: Basophils % 0.1 %; Eosinophils # 0.5 K/mcL (0.0-0.6); Eosinophils % 3.6 %; Hematocrit 32.1 % (37.5-50.1); Hemoglobin 9.8 g/dL (12.9-16.9); Immature Granulocytes % 1.7 % (0-4); Lymphocytes # 1.8 K/mcL (0.6-4.6); Mean Corpuscular HGB Conc 30.5 g/dL (31.6-35.5); Mean Corpuscular Hemoglobin 27.7 pg (28.0-33.3); Mean Corpuscular Volume 90.7 fL (83.0-100.0); Mean Platelet Volume 10.2 fL (9.4-12.4); Monocytes % 7.6 %; Neutrophils # 9.4 K/mcL (1.6-8.9); Platelet Count 340 K/mcL (140-400); Red Blood Count 3.54 M/mcL (4.19-5.50); Red Cell Distribution Width 13.7 % (11.5-14.5)
[2018-02-24 05:41] LABS: BUN/Creatinine Ratio 25 (6-26); Blood Urea Nitrogen 25 mg/dL (8-23); Carbon Dioxide 38 mEq/L (23-29); Chloride 97 mEq/L (98-107); Glucose 161 mg/dL (70-105); Osmolality,Calculated 296 (280-300); Potassium 3.5 mEq/L (3.5-5.1); Sodium 139 mEq/L (136-145); eGFR For African Americans > 60 (> 60); eGFR For Non-African Americans > 60 (> 60)
[2018-02-24 08:50] LABS: Estimated Average Glucose 177 mg/dl; Hemoglobin A1C 7.8 %
[2018-02-24] MEDS: Insulin LISPRO 300 UNITS/3 ML VIAL SQ SCH ×4 (08:50→20:25)
[2018-02-24] MEDS: Doxycycline 100 MG CAPSULE PO SCH ×2 (08:56→20:25)
[2018-02-24] MEDS: predniSONE 20 MG TABLET PO SCH (08:56)
[2018-02-24] MEDS: Miconazole 2% ointment 114 GM TUBE TP SCH ×2 (09:01→20:25)
--- NOTE | 2018-02-24 09:10 | Infectious Disease Progress No ---
Date of Encounter: 02/24/18 Time of Encounter: 09:10 - Assessment and Plan (1) Sepsis Current Visit: No Status: Resolved Improved. WBC trending down (11.5 today). Continues to have tachycardia - Blood cultures drawn 02/17/18 are NGTD x 2 sets. - urine culture positive for Mann albicans - POD #6 from a laparoscopic cholecystectomy with Dr. Prasad for a necrotic gallbladder - Continue Augmentin PO with completion date 02/27 - Completed IV vancomycin 02/19/2018 Qualifiers: Sepsis type: sepsis due to unspecified organism Qualified Code(s): A41.9 - Sepsis, unspecified organism (2) Acute cholecystitis Current Visit: Yes Status: Acute Postoperative day 6 from microscopic cholecystectomy and necrotic gallbladder - Continue Augmentin PO with completion date 02/27 - Completed IV Vancomycin 02/19/2018 (3) History of bacteremia Current Visit: Yes Status: Acute Blood cultures drawn 01/15/18 were positive 2/2 sets for MRSA. Repeat blood cultures drawn 01/16/18 were negative x 2 sets. Blood cultures drawn 02/17/18 are NGTD x 2 sets. Continue Doxycycline 100mg PO BID to complete on 02/27 Monitor renal function and dose-adjust antibiotics. (4) Complicated UTI (urinary tract infection) Current Visit: Yes Status: Acute Urine culture negative for bacteria, only positive for mann urea growing Mann albicans. - No indication to treat at this time. (5) Acute respiratory failure with hypoxia and hypercapnia Current Visit: No Status: Acute Required BIPAP post-op and transfer to , improving, currently on 4 L nasal cannula oxygen. - Further management per the primary team. 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 Scheduled to follow up with [facility]. Not currently on any treatment. Qualifiers: Malignant neoplasm of esophagus location: lower third Qualified Code(s): C15.5 - Malignant neoplasm of lower third of esophagus (7) Venous stasis Current Visit: No Status: Acute (8) Morbid obesity with BMI of 45.0-49.9, adult Current Visit: No Status: Chronic Management per primary team. (9) Leukocytosis Current Visit: Yes Status: Acute Improving. Hospital max at 27.2, currently 12.9 - Likely secondary to acute cholecystitis. Clinically improving. Qualifiers: Leukocytosis type: unspecified Qualified Code(s): D72.829 - Elevated white blood cell count, unspecified - Subjective Interval history: Mr. Jimenez 72-year-old male seen about a patient bedside this morning. He is alert awake interactive no acute distress answering questions appropriately. He denies any pain just some mild abdominal wall discomfort. tolerated removal of DENNY drain, no abdominal pain since removal. Denies any subjective fevers, chills, diaphoresis, nausea vomiting diarrhea or constipation. He has no other complaints at this time feels like he is improving. Understands treatment duration of antibiotics. Infect Dis PN-Objective Data - Labs CBC & Chem 7: 02/24/18 04:00 02/24/18 04:00 Labs: Laboratory Results - last 24 hr 02/23/18 02/23/18 02/23/18 07:45 10:55 15:39 WBC RBC Hgb Hct MCV MCH MCHC RDW Plt Count MPV Immature Gran % Seg Neutrophils % Lymphocytes % Monocytes % Eosinophils % Basophils % Neutrophils # Lymphocytes # Monocytes # Eosinophils # Basophils # Sodium Potassium Chloride Carbon Dioxide BUN Creatinine Est GFR ( Amer) Est GFR (Non-Af Amer) BUN/Creatinine Ratio Glucose POC Glucose 245 H 267 H 286 H Calculated Osmolality Calcium 02/23/18 02/24/18 02/24/18 16:56 04:00 04:00 WBC 12.9 H RBC 3.54 L Hgb 9.8 L Hct 32.1 L MCV 90.7 MCH 27.7 L MCHC 30.5 L RDW 13.7 Plt Count 340 MPV 10.2 Immature Gran % 1.7 Seg Neutrophils % 73.0 Lymphocytes % 14.0 Monocytes % 7.6 Eosinophils % 3.6 Basophils % 0.1 Neutrophils # 9.4 H Lymphocytes # 1.8 Monocytes # 1.0 Eosinophils # 0.5 Basophils # 0.0 Sodium 139 Potassium 3.5 Chloride 97 L Carbon Dioxide 38 H BUN 25 H Creatinine 1.00 Est GFR ( Amer) > 60 Est GFR (Non-Af Amer) > 60 BUN/Creatinine Ratio 25 Glucose 161 H POC Glucose 270 H Calculated Osmolality 296 Calcium 8.0 L Cultures: Serology 02/18/18 Range/Units 04:50 Gastric Occult Blood Positive A (Negative) Exam - Constitutional Vitals: Temp Pulse Resp BP Pulse Ox 97.4 F L 68 19 123/80 100 04/04/18 07:33 02/24/18 07:33 02/24/18 07:33 02/24/18 07:33 02/24/18 07:33 Exam: General: Patient alert, interactive, no acute distress HEENT: Normocephalic, atraumatic, oral mucosa dry,, neck supple trachea midline no palpable lymphadenopathy Chest: Symmetric bilateral correlating with respiratory effort, effort nonlabored. Cardiac: Irregularly irregular heart rate and rhythm, radial pulses 2+ bilateral Respiratory: Clear to auscultation Abdomen: Soft, morbidly obese, nontender, + bowel sounds, midline hernia, no palpable masses appreciated on examination Extremities: Symmetric bilateral, bilateral lower studies demonstrate venous stasis with mild edema. No noticed ulcers or wounds. Neurologic: No focal deficits appreciated on examination. Face symmetric, muscle strength symmetric bilateral upper and lower extremities. - VTE Documentation of Mechanical Device: Venous foot pump, device Consult Discharge Plan - Plan Referrals: Bulmaro Negro MD [Primary Care Provider] - Andrea Hernandez MD [Partnered Physician] - 03/02/18 8:30 am (Please arrive 15 minutes early to appointment.) Jazmine Mi CNP [Advanced Practice Nurse] - 03/04/18 9:30 am (f/u yamil valencia 02/18) Jovani Goldberg MD [Partnered Physician] - 03/19/18 2:15 pm - Attending Attestation I examined this patient and my medical decision-making was reviewed with the Resident Physician. I agree with the documented findings, disposition and treatment plan as described except to the extent set forth below.
--- NOTE | 2018-02-24 10:43 | Internal Med Progress Note ---
Date of Encounter: 02/24/18 Time of Encounter: 10:30 - Assessment and plan (1) Esophageal cancer Current Visit: Yes Status: Acute Assessment and plan: Distal third of the esophagus noted on EGD. Oncology follow-up upon discharge from hospital. Qualifiers: Malignant neoplasm of esophagus location: lower third Qualified Code(s): C15.5 - Malignant neoplasm of lower third of esophagus (2) MRSA bacteremia Current Visit: No Status: Resolved Assessment and plan: As per infectious disease. Remains on oral doxycycline through 02/27/2018. (3) Acute cholecystitis Current Visit: Yes Status: Acute Assessment and plan: Status post laparoscopic cholecystectomy done on 02/18/2018. General surgery is following. Patient has been on Zosyn and is now changed to Augmentin by mouth as recommended by infectious disease. Patient to complete course of antibiotic on February 27, 2018 (4) Heart failure Current Visit: Yes Status: Acute Assessment and plan: Patient with acute on chronic diastolic CHF. Blood pressure is now controlled. May need additional Lasix. We will continue to monitor. Qualifiers: Heart failure type: diastolic Heart failure chronicity: chronic Qualified Code(s): I50.32 - Chronic diastolic (congestive) heart failure (5) Candiduria Current Visit: Yes Status: Acute Assessment and plan: No treatment indicated at this time. (6) Acute renal failure Current Visit: Yes Status: Deleted Assessment and plan: Resolved. Avoid nephrotoxins as best able. Qualifiers: Acute renal failure type: unspecified Qualified Code(s): N17.9 - Acute kidney failure, unspecified (7) Atrial fibrillation with RVR Current Visit: Yes Status: Acute Assessment and plan: Rate controlled. No anticoagulation given recent upper GI bleed (8) Upper GI bleed Current Visit: Yes Status: Acute Assessment and plan: EGD results as noted. Continues on Protonix. Hemoglobin remained stable. (9) Hypernatremia Current Visit: Yes Status: Acute Assessment and plan: Resolved. (10) Acute respiratory failure Current Visit: No Status: Acute Assessment and plan: Stable, monitor. CPAP at night. Continues on oxygen at 2 L per nasal cannula. He did desat when oxygen was attempted to be removed Qualifiers: Respiratory failure complication: hypoxia Qualified Code(s): J96.01 - Acute respiratory failure with hypoxia (11) Hypertension Current Visit: No Status: Chronic Assessment and plan: Reasonable control presently. Continue current medications. Qualifiers: Hypertension type: essential hypertension Qualified Code(s): I10 - Essential (primary) hypertension (12) DVT prophylaxis Current Visit: No Status: Acute Assessment and plan: SCDs. (13) Sepsis Current Visit: No Status: Resolved Assessment and plan: Resolved Qualifiers: Sepsis type: sepsis due to unspecified organism Qualified Code(s): A41.9 - Sepsis, unspecified organism (14) Diabetes mellitus Current Visit: No Status: Chronic Assessment and plan: Blood sugar control is slowly improving. We will likely add long-acting insulin. Kidney sliding scale. 02/24/18: Increase Levemir dose as blood sugars are out of control Qualifiers: Diabetes mellitus type: type 2 Diabetes mellitus chcf insulin use: without predatory animal exterminator use Diabetes mellitus complication status: with hyperglycemia Qualified Code(s): E11.65 - Type 2 diabetes mellitus with hyperglycemia (15) COPD (chronic obstructive pulmonary disease) Current Visit: No Status: Chronic Qualifiers: COPD type: unspecified COPD Qualified Code(s): J44.9 - Chronic obstructive pulmonary disease, unspecified (16) Chronic indwelling Adame catheter Current Visit: No Status: Chronic (17) Metastatic disease Current Visit: No Status: Acute (18) Decubitus ulcer Current Visit: No Status: Chronic Qualifiers: Pressure ulcer location: other site Pressure ulcer stage: stage 2 Qualified Code(s): L89.892 - Pressure ulcer of other site, stage 2 - Time Spent With Patient Total time spent is greater than 50% in coordination of care (as documented) at patient's floor/unit and/or counseling patient: 25 - 35 minutes - Subjective Interval history: CC: Weakness I have assumed care of this patient. Hospital records reviewed. Patient is currently status post laparoscopic cholecystectomy performed on 02/18/2017. EGD done on February 19 showed a large ulcerative mass of the distal third of the esophagus. Patient did have a postoperative NG tube which has been removed last night as he had a bowel movement and he is now tolerating orals. He denies any nausea or vomiting presently. No fevers or chills. No chest pain or shortness of breath. He states he feels very weak. 02/24: Patient continues to improve daily. He remains on 2 L of oxygen. He is very weak and deconditioned but is starting to get up more and working with physical therapy. He is now on oral antibiotics. He denies any chest pain. He is winded with activity but no shortness of breath at rest. No fevers or chills. No nausea, vomiting, diarrhea. - Constitutional Vitals: Temp Pulse Resp BP Pulse Ox 97.4 F L 68 16 123/80 98 02/24/18 07:33 02/24/18 07:33 02/24/18 10:20 02/24/18 07:33 02/24/18 10:20 General appearance: Present: A&O X 3, morbidly obese, no acute distress, answers questions appropriately Exam: Chronically Ill-appearing - Head Head exam: Present: atraumatic, normocephalic - Eye Eye exam: Present: PERRL, conjuntiva pink, sclera anicteric Pupils: Present: PERRL - Respiratory Respiratory exam: Present: decreased breath sounds - Cardiovascular Cardiovascular exam: Present: RRR, +S1, +S2. Absent: diastolic murmur, gallop, rubs, systolic murmur - GI/Abdominal GI/Abdominal exam: Present: normal bowel sounds, soft, no peritoneal signs. Absent: distended, tenderness - Extremities Exam Extremities exam: Present: pedal edema, warm, radial pulses palpable and symmetrical. Absent: calf tenderness, cyanotic - Neurological Exam Neurological exam: Present: CN II-XII intact, oriented X3, no focal deficits. Absent: pronater drift, facial droop, speech deficit - Skin Skin exam: Present: dry, intact Additional comments: Scattered ecchymoses Internal Medicine: Result - Labs CBC & Chem 7: 02/24/18 04:00 02/24/18 04:00 Labs: Short CBC 02/24/18 Range/Units 04:00 WBC 12.9 H (4.3-11.1) K/mcL Hgb 9.8 L (12.9-16.9) g/dL Hct 32.1 L (37.5-50.1) % Plt Count 340 (140-400) K/mcL Neutrophils # 9.4 H (1.6-8.9) K/mcL BMP 02/24/18 04:00 Sodium 139 Potassium 3.5 Chloride 97 L Carbon Dioxide 38 H BUN 25 H Creatinine 1.00 Glucose 161 H Calcium 8.0 L - ABG Interpretation ABG results: ABG ABG pH 7.43 pH Units (7.32-7.45) 02/20/18 16:11 ABG pCO2 61 mmHg (35-45) H 02/20/18 16:11 ABG pO2 102 mmHg (85-104) 02/20/18 16:11 ABG O2 Saturation 98 % (95-98) 02/20/18 16:11 PT/INR, D-dimer PT 14.4 Seconds (9.4-12.1) H 02/18/18 05:40 - VTE Documentation of Mechanical Device: Venous foot pump, device Consult Discharge Plan - Plan Referrals: Bulmaro Negro MD [Primary Care Provider] - Andrea Hernandez MD [Partnered Physician] - 03/02/18 8:30 am (Please arrive 15 minutes early to appointment.) Jamzine Mi CNP [Advanced Practice Nurse] - 03/04/18 9:30 am (f/u lap annie 02/18) Jovani Goldberg MD [Partnered Physician] - 03/19/18 2:15 pm
[2018-02-24] MEDS: Insulin DETEMIR 100 UNIT/ML X5UNITS SQ SCH (20:25)
[2018-02-25] MEDS: Levalbuterol Neb 1.25 MG/3 ML IH SCH ×2 (03:59→10:08)
[2018-02-25 04:11] LABS: Basophils % 0.2 %; Eosinophils # 0.3 K/mcL (0.0-0.6); Eosinophils % 2.5 %; Hematocrit 31.1 % (37.5-50.1); Hemoglobin 9.8 g/dL (12.9-16.9); Lymphocytes # 1.8 K/mcL (0.6-4.6); Lymphocytes % 13.6 %; Mean Corpuscular HGB Conc 31.5 g/dL (31.6-35.5); Mean Corpuscular Hemoglobin 28.5 pg (28.0-33.3); Mean Corpuscular Volume 90.4 fL (83.0-100.0); Mean Platelet Volume 10.4 fL (9.4-12.4); Monocytes # 0.9 K/mcL (0.0-1.3); Monocytes % 6.9 %; Neutrophils # 9.7 K/mcL (1.6-8.9); Platelet Count 337 K/mcL (140-400); Red Blood Count 3.44 M/mcL (4.19-5.50); Red Cell Distribution Width 13.8 % (11.5-14.5); Segmented Neutrophils % 74.8 %
[2018-02-25 04:23] LABS: BUN/Creatinine Ratio 24 (6-26); Blood Urea Nitrogen 22 mg/dL (8-23); Calcium 7.9 mg/dL (8.6-10.3); Carbon Dioxide 35 mEq/L (23-29); Chloride 101 mEq/L (98-107); Glucose 124 mg/dL (70-105); Osmolality,Calculated 289 (280-300); Potassium 3.5 mEq/L (3.5-5.1); Sodium 137 mEq/L (136-145); eGFR For African Americans > 60 (> 60); eGFR For Non-African Americans > 60 (> 60)
[2018-02-25 05:15] LABS: ABG Base Excess 10 mEq/L (-2 to 3); ABG HCO3 35 mEq/L (21-27); ABG Oxygen Saturation 96 % (95-98); ABG PCO2 50 mmHg (35-45); ABG PH 7.46 pH Units (7.32-7.45); ABG PO2 83 mmHg (85-104); ABG TCO2 37 mEq/L (20-26)
[2018-02-25] MEDS: Pantoprazole 40 MG VIAL IVP SCH (05:44)
[2018-02-25] MEDS: Doxycycline 100 MG CAPSULE PO SCH (08:33)
[2018-02-25] MEDS: predniSONE 20 MG TABLET PO SCH (08:34)
[2018-02-25] MEDS: Insulin LISPRO 300 UNITS/3 ML VIAL SQ SCH ×2 (08:34→11:38)
[2018-02-25] MEDS: Miconazole 2% ointment 114 GM TUBE TP SCH (08:34)
--- NOTE | 2018-02-25 09:43 | Discharge Summary ---
- NOTES TO OUTPATIENT PROVIDER Notes to Outpatient Provider: Pt has newly diagnosed esoph CA and needs oncology follow up [facility] (this has been arranged). Home Bipap at night and with naps Orders not resulted at time of discharge: Pending orders 02/26/18 04:00 ABG [Arterial Blood Gas] AM 0400 BMP [Basic Metabolic Panel] AM 0400 Complete Blood Count [HEME] AM 0400 Date of Encounter: 02/25/18 Time of Encounter: 09:00 - Discharge Diagnosis (1) Esophageal cancer Priority: Primary Status: Acute Qualifiers: Malignant neoplasm of esophagus location: lower third Qualified Code(s): C15.5 - Malignant neoplasm of lower third of esophagus (2) MRSA bacteremia Priority: Primary Status: Resolved (3) Acute cholecystitis Priority: Primary Status: Acute (4) Heart failure Priority: Secondary Status: Acute Qualifiers: Heart failure type: diastolic Heart failure chronicity: chronic Qualified Code(s): I50.32 - Chronic diastolic (congestive) heart failure (5) Candiduria Priority: Secondary Status: Acute (6) Acute renal failure Priority: Secondary Status: Deleted Qualifiers: Acute renal failure type: unspecified Qualified Code(s): N17.9 - Acute kidney failure, unspecified (7) Atrial fibrillation with RVR Priority: Secondary Status: Acute (8) Upper GI bleed Priority: Secondary Status: Acute (9) Hypernatremia Priority: Secondary Status: Acute (10) Acute respiratory failure Priority: Secondary Status: Acute Qualifiers: Respiratory failure complication: hypoxia and hypercapnia Qualified Code(s) : J96.01 - Acute respiratory failure with hypoxia; J96.02 - Acute respiratory failure with hypercapnia; J96.02 - Acute respiratory failure with hypercapnia; J96.02 - Acute respiratory failure with hypercapnia (11) Hypertension Priority: Secondary Status: Chronic Qualifiers: Hypertension type: essential hypertension Qualified Code(s): I10 - Essential (primary) hypertension (12) DVT prophylaxis Priority: Secondary Status: Acute (13) Sepsis Priority: Primary Status: Resolved Qualifiers: Sepsis type: sepsis due to unspecified organism Qualified Code(s): A41.9 - Sepsis, unspecified organism (14) Diabetes mellitus Priority: Secondary Status: Chronic Qualifiers: Diabetes mellitus type: type 2 Diabetes mellitus rat exterminator insulin use: without rat exterminator use Diabetes mellitus complication status: with hyperglycemia Qualified Code(s): E11.65 - Type 2 diabetes mellitus with hyperglycemia (15) COPD (chronic obstructive pulmonary disease) Priority: Secondary Status: Chronic Qualifiers: COPD type: unspecified COPD Qualified Code(s): J44.9 - Chronic obstructive pulmonary disease, unspecified (16) Chronic indwelling Tomlinson catheter Priority: Secondary Status: Chronic (17) Metastatic disease Priority: Primary Status: Acute (18) Decubitus ulcer Priority: Secondary Status: Chronic Qualifiers: Pressure ulcer location: other site Pressure ulcer stage: stage 2 Qualified Code(s): L89.892 - Pressure ulcer of other site, stage 2 Hospital course: CC: Weakness I have assumed care of this patient. Hospital records reviewed. Patient is currently status post laparoscopic cholecystectomy performed on 02/18/2017. EGD done on February 19 showed a large ulcerative mass of the distal third of the esophagus. Patient did have a postoperative NG tube which has been removed last night as he had a bowel movement and he is now tolerating orals. He denies any nausea or vomiting presently. No fevers or chills. No chest pain or shortness of breath. He states he feels very weak. 02/24: Patient continues to improve daily. He remains on 2 L of oxygen. He is very weak and deconditioned but is starting to get up more and working with physical therapy. He is now on oral antibiotics. He denies any chest pain. He is winded with activity but no shortness of breath at rest. No fevers or chills. No nausea, vomiting, diarrhea. Hospital Course: 02/25: Patient did well overnight. He is placed on BiPAP and ABGs in the morning indicate he would likely qualify for home BiPAP whenever he is sleeping or at. This will be arranged. Social issues addressed during this admission. 1) Acute Cholecystitis. Patient is postoperative day 8 microscopic cholecystectomy of a necrotic gallbladder. She is currently on oral Augmentin with an anticipated completion date of February 27, 2018 2) previously diagnosed MRSA bacteremia. Followed by infectious disease. Last set of positive blood cultures were from every 2017. Patient is now on oral doxycycline 100 mg by mouth twice a day to complete course on February 27, 2018 3) Candiduria - related to recent Tomlinson catheter. No treatment indicated. 4) Newly diagnosed esophageal cancer in the distal third of his esophagus. He was diagnosed by EGD. Pt to follow-up with [facility] as outpatient as soon as possible. This is being arranged. 5) Chronic hypoxemic and hypercarbic respiratory failure due to COPD, and suspected obesity hypoventilation syndrome. Home BiPAP is being arranged 6) Acute on chronic diastolic CHF. Patient is now compensated. He is on labetalol 300 mg by mouth 3 times a day pressure control is reasonable. CHF discharge instructions provided. 7) Upper GI bleed - resolved. Continues on Protonix 8) COPD- not felt to be having an acute exacerbation. He was started on steroids and we are stopping them. Continue with aggressive bronchodilator therapy and incentive spirometry. 9) Atrial fibrillation. Rate is controlled. No anticoagulation due to upper GI bleed. May consider low dose aspirin in the future. Patient is deemed stable for discharge. Pt transferred to facility due to weakness and deconditioning. Total of 44 minutes were spent on discharge and coordination of care. Discharge discussed with: patient - Time Spent with Patient Total time spent providing and/or coordinating discharge services: Greater than 30 minutes (44) - Discharge Medications Prescriptions: Levalbuterol Neb [Xopenex Neb] 1.25 mg IH [id number] 30 Days #2 vial.neb Amoxicillin/Clavulanate [Augmentin] 875 mg PO BIDWM 3 Days #6 tablet Cholecalciferol (Vitamin D3) [Vitamin D3] 5,000 unit PO QAM 30 Days #30 tablet Doxycycline 100 mg PO BID 3 Days #6 capsule Labetalol HCl 300 mg PO 0700,1200,2100 30 Days #90 tablet Lisinopril [Zestril] 40 mg PO DAILY 30 Days #30 tablet Miconazole 2% ointment [Aloe [place] Antifungal Ointment] 1 appl TP BID 30 Days # 1 tube Omeprazole [PriLOSEC] 40 mg PO BID 30 Days #60 cap Oxybutynin Chloride [Ditropan Xl] 15 mg PO DAILY 30 Days #30 tab.er.24 Home Medications: Metformin HCl [Metformin HCl ER] 1,000 mg PO BID 02/18/18 [History] SitaGLIPtin [Januvia] 100 mg PO DAILY 02/18/18 [History] Acetaminophen [Tylenol] 650 mg PO Q6HR PRN tablet 02/25/18 [Rx] Amoxicillin/Clavulanate [Augmentin] 875 mg PO BIDWM 3 Days #6 tablet 02/25/18 [ Rx] Cholecalciferol (Vitamin D3) [Vitamin D3] 5,000 unit PO QAM 30 Days #30 tablet 02/25/18 [Rx] Doxycycline 100 mg PO BID 3 Days #6 capsule 02/25/18 [Rx] Insulin LISPRO [HumaLOG] 0 units SQ TIDAC #0 vial 02/25/18 [Rx] Labetalol HCl 300 mg PO 0700,1200,2100 30 Days #90 tablet 02/25/18 [Rx] Levalbuterol Neb [Xopenex Neb] 1.25 mg IH [id number] 30 Days #2 vial.neb 02/25/18 [ Rx] Lisinopril [Zestril] 40 mg PO DAILY 30 Days #30 tablet 02/25/18 [Rx] Miconazole 2% ointment [Aloe [place] Antifungal Ointment] 1 appl TP BID 30 Days # 1 tube 02/25/18 [Rx] Omeprazole [PriLOSEC] 40 mg PO BID 30 Days #60 cap 02/25/18 [Rx] Oxybutynin Chloride [Ditropan Xl] 15 mg PO DAILY 30 Days #30 tab.er.24 02/25/18 [Rx] Allergies/Adverse Reactions: 3 Allergy/AdvReac Type Severity Reaction Status Date / Time No Known Allergies Allergy Verified 01/15/18 08:57 Date of admission: 02/18/18 00:17 Primary care physician: Bulmaro Negro MD Consults: 02/18/18 10:11 Consult to Gastroenterology [CONS] Routine Consulting Provider: [facility] Reason for Consult: hematemesis, known esophageal cancer, known Barretts Call Completed: Yes Consult to Infectious Diseases [CONS] Routine Consulting Provider: Infectious [facility] Reason for Consult: Sepsis Call Completed: Yes Consult to Wound Care [CONS] Routine Reason for Consult: Decub and foot ulcer Call Completed: No 02/19/18 13:54 Consult to Invasive Line Access Team [CONS] Routine Reason for Consult: poor access Line Type: EPIV 02/19/18 18:00 Consult to Oncology [CONS] Routine Consulting Provider: [facility] Reason for Consult: Esophageal cancer, known to group. Call Completed: No 02/21/18 15:58 Consult to Urology [CONS] Routine Consulting Provider: Urology [facility] Reason for Consult: chronic tomlinson placement Call Completed: No 02/23/18 07:41 Consult to Physical Therapy [CONS] Routine Comment: Evaluate, develop and implement POC Reason for Consult: d/c planning Does patient have active BEDREST order?: No Is patient medically & hemodynamically stable?: Yes Patient assessed for mobility or mobilized this visit?: No OT [Consult to Occupational Therapy] [CONS] Routine Comment: Evaluate, develop and implement POC Reason for Consult: d/c planning Does patient have active BEDREST order?: No Is patient medically & hemodynamically stable?: Yes Patient assessed for mobility or mobilized this visit?: No 02/24/18 10:11 Consult to Hosiery Knitter [CONS] Routine Reason for SW Consult: weakness, IP therapy needs Discharging clinician: John Mullen Anticipated date of discharge: 02/25/18 - Constitutional Vitals: Temp Pulse Resp BP Pulse Ox 98.4 F 73 18 124/73 98 02/25/18 07:28 02/25/18 07:35 02/25/18 07:28 02/25/18 07:28 02/25/18 07:28 General appearance: Present: A&O X 3, morbidly obese, no acute distress, answers questions appropriately - Head Head exam: Present: atraumatic, normocephalic - Eye Eye exam: Present: PERRL, conjuntiva pink, sclera anicteric Pupils: Present: PERRL - Neck Neck exam general surgery: Present: supple, trachea midline. Absent: lymphadenopathy - Respiratory Respiratory exam: Present: decreased breath sounds - Cardiovascular Cardiovascular exam: Present: irregular rhythm - GI/Abdominal GI/Abdominal exam: Present: normal bowel sounds, soft, tenderness Additional comments: min ttp at surg site, almost resolved per pt - Extremities Exam Extremities exam: Present: warm, radial pulses palpable and symmetrical. Absent : calf tenderness, cyanotic, pedal edema - Skin Skin exam: Present: dry, intact Additional comments: scattered ecchymoses - Patient Status Disposition: Transfer SNF Condition: Fair Functional capacity at discharge: independent ambulation Overall status at discharge: patient is progressing back to baseline - Ambulatory Orders Ambulatory Orders: Basic Metabolic Panel [CHEM] Time Frame: 3 Days, Facility: [facility], Location: Lab Complete Blood Count w/o Diff [HEME] Time Frame: 3 Days, Facility: [facility], Location: Lab - Discharge Instructions Follow Up With: Bulmaro Negro MD [Primary Care Provider] - Andrea Hernandez MD [Partnered Physician] - 03/02/18 8:30 am (Please arrive 15 minutes early to appointment.) Jazmine Mi CNP [Advanced Practice Nurse] - 03/04/18 9:30 am (f/u yamil valencia 02/18) Jovani Goldberg MD [Partnered Physician] - 03/19/18 2:15 pm - VTE Documentation of Mechanical Device: Intermittent pneumatic compression device
--- NOTE | 2018-02-25 09:44 | Infectious Disease Progress No ---
Date of Encounter: 02/25/18 Time of Encounter: 09:00 - Assessment and Plan (1) Acute cholecystitis Current Visit: Yes Status: Acute Postoperative day 7 from microscopic cholecystectomy and necrotic gallbladder - Continue Augmentin PO with completion date 02/27 - Completed IV Vancomycin 02/19/2018 (2) History of bacteremia Current Visit: Yes Status: Acute Blood cultures drawn 01/15/18 were positive 2/2 sets for MRSA. Repeat blood cultures drawn 01/16/18 were negative x 2 sets. Blood cultures drawn 02/17/18 are NGTD x 2 sets. Continue Doxycycline 100mg PO BID to complete on 02/27 Monitor renal function and dose-adjust antibiotics. (3) Complicated UTI (urinary tract infection) Current Visit: Yes Status: Acute Urine culture negative for bacteria, only positive for mann urea growing Mann albicans. - No indication to treat at this time. (4) Acute respiratory failure with hypoxia and hypercapnia Current Visit: No Status: Acute Required BIPAP post-op and transfer to , improving, currently on 4 L nasal cannula oxygen. - Further management per the primary team. (5) Esophageal cancer Current Visit: Yes Status: Acute Recent diagnosis of ulcerating esophageal cancer in the distal one third of the esophagus diagnosed about 2 weeks ago. Scheduled to follow up with [facility]. Not currently on any treatment. Qualifiers: Malignant neoplasm of esophagus location: lower third Qualified Code(s): C15.5 - Malignant neoplasm of lower third of esophagus (6) Venous stasis Current Visit: No Status: Acute (7) Morbid obesity with BMI of 45.0-49.9, adult Current Visit: No Status: Chronic Management per primary team. (8) Leukocytosis Current Visit: Yes Status: Acute Improving. Hospital max at 27.2 - Likely secondary to acute cholecystitis. Clinically improving. Qualifiers: Leukocytosis type: unspecified Qualified Code(s): D72.829 - Elevated white blood cell count, unspecified - Subjective Interval history: Mr. Duffy 72-year-old male seen about a patient bedside this morning. He is alert awake interactive no acute distress answering questions appropriately. He denies any pain just some mild abdominal wall discomfort post operative. Denies any subjective fevers, chills, diaphoresis, nausea vomiting diarrhea or constipation. He has no other complaints at this time feels like he is improving. Understands treatment duration of antibiotics. Infect Dis PN-Objective Data - Labs CBC & Chem 7: 02/25/18 03:58 02/25/18 03:58 Labs: Laboratory Results - last 24 hr 02/23/18 02/24/18 02/24/18 20:33 07:24 11:22 WBC RBC Hgb Hct MCV MCH MCHC RDW Plt Count MPV Immature Gran % Seg Neutrophils % Lymphocytes % Monocytes % Eosinophils % Basophils % Neutrophils # Lymphocytes # Monocytes # Eosinophils # Basophils # Sample Site ABG pH ABG pCO2 ABG pO2 ABG HCO3 ABG Total CO2 ABG O2 Saturation ABG Base Excess Jonathan Test O2 Delivery Device Inspired O2 Sodium Potassium Chloride Carbon Dioxide BUN Creatinine Est GFR ( Amer) Est GFR (Non-Af Amer) BUN/Creatinine Ratio Glucose POC Glucose 252 H 128 H 212 H Calculated Osmolality Calcium 02/24/18 02/24/18 02/25/18 16:25 20:20 03:58 WBC 13.0 H RBC 3.44 L Hgb 9.8 L Hct 31.1 L MCV 90.4 MCH 28.5 MCHC 31.5 L RDW 13.8 Plt Count 337 MPV 10.4 Immature Gran % 2.0 Seg Neutrophils % 74.8 Lymphocytes % 13.6 Monocytes % 6.9 Eosinophils % 2.5 Basophils % 0.2 Neutrophils # 9.7 H Lymphocytes # 1.8 Monocytes # 0.9 Eosinophils # 0.3 Basophils # 0.0 Sample Site ABG pH ABG pCO2 ABG pO2 ABG HCO3 ABG Total CO2 ABG O2 Saturation ABG Base Excess Jonathan Test O2 Delivery Device Inspired O2 Sodium Potassium Chloride Carbon Dioxide BUN Creatinine Est GFR ( Amer) Est GFR (Non-Af Amer) BUN/Creatinine Ratio Glucose POC Glucose 290 H 310 H Calculated Osmolality Calcium 02/25/18 02/25/18 02/25/18 03:58 05:12 07:15 WBC RBC Hgb Hct MCV MCH MCHC RDW Plt Count MPV Immature Gran % Seg Neutrophils % Lymphocytes % Monocytes % Eosinophils % Basophils % Neutrophils # Lymphocytes # Monocytes # Eosinophils # Basophils # Sample Site R Radial ABG pH 7.46 H ABG pCO2 50 H ABG pO2 83 L ABG HCO3 35 H ABG Total CO2 37 H ABG O2 Saturation 96 ABG Base Excess 10 H Jonathan Test Positive O2 Delivery Device Cannula Inspired O2 2.0 Sodium 137 Potassium 3.5 Chloride 101 Carbon Dioxide 35 H BUN 22 Creatinine 0.92 Est GFR ( Amer) > 60 Est GFR (Non-Af Amer) > 60 BUN/Creatinine Ratio 24 Glucose 124 H POC Glucose 106 H Calculated Osmolality 289 Calcium 7.9 L Cultures: Serology 02/18/18 Range/Units 04:50 Gastric Occult Blood Positive A (Negative) - Impressions Impressions Abdomen X-Ray 02/22/18 07:39 IMPRESSION: Nasogastric tube tip projects over the proximal gastric body. D/ / 02/22/2018 08:49:26 Carolin Spear MD / Sunshine Vargas Interpreting Provider: Carolin Spear MD Exam - Constitutional Vitals: Temp Pulse Resp BP Pulse Ox 98.4 F 73 18 124/73 98 02/25/18 07:28 02/25/18 07:35 02/25/18 07:28 02/25/18 07:28 02/25/18 07:28 Exam: General: Patient alert, interactive, no acute distress HEENT: Normocephalic, atraumatic, oral mucosa dry,, neck supple trachea midline no palpable lymphadenopathy Chest: Symmetric bilateral correlating with respiratory effort, effort nonlabored. Cardiac: Irregularly irregular heart rate and rhythm, radial pulses 2+ bilateral Respiratory: Clear to auscultation Abdomen: Soft, morbidly obese, nontender, + bowel sounds, midline hernia, no palpable masses appreciated on examination Extremities: Symmetric bilateral, bilateral lower studies demonstrate venous stasis with mild edema. No noticed ulcers or wounds. Neurologic: No focal deficits appreciated on examination. Face symmetric, muscle strength symmetric bilateral upper and lower extremities. - VTE Documentation of Mechanical Device: Intermittent pneumatic compression device Consult Discharge Plan - Plan Referrals: Bulmaro Negro MD [Primary Care Provider] - Andrea Hernandez MD [Partnered Physician] - 03/02/18 8:30 am (Please arrive 15 minutes early to appointment.) Jazmine Mi CNP [Advanced Practice Nurse] - 03/04/18 9:30 am (f/u lap annie 02/18) Jovani Goldberg MD [Partnered Physician] - 03/19/18 2:15 pm Prescriptions: Levalbuterol Neb [Xopenex Neb] 1.25 mg IH [id number] 30 Days #2 vial.neb Amoxicillin/Clavulanate [Augmentin] 875 mg PO BIDWM 3 Days #6 tablet Cholecalciferol (Vitamin D3) [Vitamin D3] 5,000 unit PO QAM 30 Days #30 tablet Doxycycline 100 mg PO BID 3 Days #6 capsule Labetalol HCl 300 mg PO 0700,1200,2100 30 Days #90 tablet Lisinopril [Zestril] 40 mg PO DAILY 30 Days #30 tablet Miconazole 2% ointment [Aloe [place] Antifungal Ointment] 1 appl TP BID 30 Days # 1 tube Omeprazole [PriLOSEC] 40 mg PO BID 30 Days #60 cap Oxybutynin Chloride [Ditropan Xl] 15 mg PO DAILY 30 Days #30 tab.er.24 - Attending Attestation I examined this patient and my medical decision-making was reviewed with the Resident Physician. I agree with the documented findings, disposition and treatment plan as described except to the extent set forth below.
--- NOTE | 2018-02-25 10:45 | Physician Discharge Referral ---
ExtendedCare Referral Info Transfer To: [facility] Provider in Charge: мария phillips Provider in Charge after Transfer: PCP Institutional Level of Care: Skilled - Diagnosis (1) Esophageal cancer Priority: Primary Status: Acute (2) MRSA bacteremia Priority: Primary Status: Resolved (3) Acute cholecystitis Priority: Primary Status: Acute (4) Heart failure Priority: Secondary Status: Resolved (5) Candiduria Priority: Secondary Status: Resolved (6) Acute renal failure Status: Deleted (7) Atrial fibrillation with RVR Priority: Secondary Status: Chronic (8) Upper GI bleed Priority: Secondary Status: Resolved (9) Hypernatremia Priority: Secondary Status: Resolved (10) Acute respiratory failure Priority: Secondary Status: Resolved (11) Hypertension Priority: Secondary Status: Chronic (12) Sepsis Status: Resolved (13) Diabetes mellitus Status: Chronic (14) COPD (chronic obstructive pulmonary disease) Status: Chronic (15) Chronic indwelling Adame catheter Priority: Secondary Status: Chronic (16) Metastatic disease Priority: Primary Status: Acute (17) Decubitus ulcer Priority: Secondary Status: Chronic Expected Duration of Placement: 4 weeks Prognosis: Fair Aware of Diagnosis: Patient, Family Aware of Prognosis: Patient - Transfer Medications Prescriptions: Levalbuterol Neb [Xopenex Neb] 1.25 mg IH [id number] 30 Days #2 vial.neb Amoxicillin/Clavulanate [Augmentin] 875 mg PO BIDWM 3 Days #6 tablet Cholecalciferol (Vitamin D3) [Vitamin D3] 5,000 unit PO QAM 30 Days #30 tablet Doxycycline 100 mg PO BID 3 Days #6 capsule Labetalol HCl 300 mg PO 0700,1200,2100 30 Days #90 tablet Lisinopril [Zestril] 40 mg PO DAILY 30 Days #30 tablet Miconazole 2% ointment [Aloe [place] Antifungal Ointment] 1 appl TP BID 30 Days # 1 tube Omeprazole [PriLOSEC] 40 mg PO BID 30 Days #60 cap Oxybutynin Chloride [Ditropan Xl] 15 mg PO DAILY 30 Days #30 tab.er.24 Home Medications: Metformin HCl [Metformin HCl ER] 1,000 mg PO BID 02/18/18 [History] SitaGLIPtin [Januvia] 100 mg PO DAILY 02/18/18 [History] Acetaminophen [Tylenol] 650 mg PO Q6HR PRN tablet 02/25/18 [Rx] Amoxicillin/Clavulanate [Augmentin] 875 mg PO BIDWM 3 Days #6 tablet 02/25/18 [ Rx] Cholecalciferol (Vitamin D3) [Vitamin D3] 5,000 unit PO QAM 30 Days #30 tablet 02/25/18 [Rx] Doxycycline 100 mg PO BID 3 Days #6 capsule 02/25/18 [Rx] Insulin LISPRO [HumaLOG] 0 units SQ TIDAC #0 vial 02/25/18 [Rx] Labetalol HCl 300 mg PO 0700,1200,2100 30 Days #90 tablet 02/25/18 [Rx] Levalbuterol Neb [Xopenex Neb] 1.25 mg IH [id number] 30 Days #2 vial.neb 02/25/18 [ Rx] Lisinopril [Zestril] 40 mg PO DAILY 30 Days #30 tablet 02/25/18 [Rx] Miconazole 2% ointment [Aloe [place] Antifungal Ointment] 1 appl TP BID 30 Days # 1 tube 02/25/18 [Rx] Omeprazole [PriLOSEC] 40 mg PO BID 30 Days #60 cap 02/25/18 [Rx] Oxybutynin Chloride [Ditropan Xl] 15 mg PO DAILY 30 Days #30 tab.er.24 02/25/18 [Rx] Allergies/Adverse Reactions: 3 Allergy/AdvReac Type Severity Reaction Status Date / Time No Known Allergies Allergy Verified 01/15/18 08:57 - Respiratory Orders Other (Bipap at HS and with all naps) Smoking Cessation: Smoking cessation has been advised. For more information, call the [place] Tobacco Quit Line at 2-174-JWRQ-NOW. - Lab Orders Lab Orders: CBC, Other (include drug levels w/frequency) (CBC and BMP in 3 days) CERTIFICATION: I certify that the transfer of the above named patient to an Extended Care Facility is necessary for the continuing treatment of the diagnosis listed. The above information is true and accurate reflection of patient's current condition. Confidential - Redisclosure prohibited without a patient's written consent.
[2018-02-25 11:32] VITALS: BP 122/75
== END 2018-02-25 15:35 | DRG 853 ==
LOC: EMEROO 14:15 → 3ANU 14:15 → 2NNU 02-18 15:38
PROVIDERS: ADMIT Internal Medicine; ATTEND Internal Medicine Nephrology

== ENCOUNTER 2018-03-29 14:33 | Inpatient (IN) ==
[2018-03-29 16:13] LABS: Basophils # 0.1 K/mcL (0.0-0.2); Basophils % 0.5 %; Eosinophils # 0.1 K/mcL (0.0-0.6); Eosinophils % 0.6 %; Hematocrit 35.9 % (37.5-50.1); Hemoglobin 11.4 g/dL (12.9-16.9); Immature Granulocytes % 1.1 % (0-4); Lymphocytes # 3.3 K/mcL (0.6-4.6); Lymphocytes % 14.4 %; Mean Corpuscular HGB Conc 31.8 g/dL (31.6-35.5); Mean Corpuscular Hemoglobin 26.3 pg (28.0-33.3); Mean Corpuscular Volume 82.7 fL (83.0-100.0); Mean Platelet Volume 9.6 fL (9.4-12.4); Monocytes # 2.1 K/mcL (0.0-1.3); Monocytes % 9.3 %; Neutrophils # 16.8 K/mcL (1.6-8.9); Platelet Count 559 K/mcL (140-400); Red Blood Count 4.34 M/mcL (4.19-5.50); Segmented Neutrophils % 74.1 %
[2018-03-29 16:35] LABS: Calcium 6.7 mg/dL (8.6-10.3); Potassium 3.3 mEq/L (3.5-5.1); Troponin I 0.03 ng/mL (< 0.04)
[2018-03-29] MEDS ORDERED: Ipratropium/Albuterol Neb 3 ML IH ONE (16:42)
--- NOTE | 2018-03-29 16:48 | Emergency Department Note ---
Disposition Referrals: Bulmaro Negro MD [Primary Care Provider] - Pediatric SOB HPI - General Chief Complaint: ED Shortness of Breath/Dyspnea Stated Complaint: TAMMIE Time Seen by Provider: 03/29/18 16:16 Source: patient Mode of arrival: ambulatory Limitations: no limitations Nursing Notes Reviewed: Yes Vital Signs Reviewed: Yes - History of Present Illness HPI Narrative: 72-year-old history COPD comes in with increasing shortness of breath. He patient has a history of A. fib and is noted to bounce between about 100 and 130. I did review his previous echo shows an EF of 60-65%. Eyes history of CHF. Pt Subjective Complaint: wheezes Onset (ago): day(s) Consistency: constant Fever: No Severity: moderate Context: recent illness Associated symptoms: Reports: cough - Related Data Home Medications Medication Instructions Recorded Confirmed Furosemide [Lasix] 40 mg PO 03/12/18 Labetalol HCl 200 mg PO 03/12/18 Methocarbamol [Robaxin] 500 mg PO 03/12/18 Methocarbamol [Robaxin] 500 mg PO 03/12/18 Potassium Chloride 20 meq PO DAILY 03/12/18 03/12/18 Rivaroxaban [Xarelto] 20 mg PO 03/12/18 Tramadol HCl [Ultram] 50 mg PO TID PRN 03/12/18 03/12/18 Previous Rx's Medication Instructions Recorded Acetaminophen [Tylenol] 650 mg PO Q6HR PRN tablet 02/25/18 Cholecalciferol (Vitamin D3) 5,000 unit PO QAM 30 Days #30 02/25/18 [Vitamin D3] tablet Lisinopril [Zestril] 40 mg PO DAILY 30 Days #30 tablet 02/25/18 Omeprazole [PriLOSEC] 40 mg PO BID 30 Days #60 cap 02/25/18 Oxybutynin Chloride [Ditropan Xl] 15 mg PO DAILY 30 Days #30 02/25/18 tab.er.[id number] Supplies [SUPPLIES] 1 each .ROUTE DAILY PRN #1 each 03/11/18 Allergies Allergy/AdvReac Type Severity Reaction Status Date / Time No Known Allergies Allergy Verified 01/15/18 08:57 Pediatric Review of Systems All systems ED: reviewed and negative except as stated. Constitutional: Denies: fever, chills, change in activity level Eyes: Denies: eye pain, eye discharge ENT: Denies: ear pain, sore throat Cardiovascular: Denies: chest pain Respiratory: Reports: wheezing. Denies: cough, dyspnea Gastrointestinal: Denies: abdominal pain Genitourinary: Denies: dysuria, polyuria Musculoskeletal: Denies: back pain Integumentary: Denies: rash Neurological: Denies: headache, weakness, numbness Psychiatric: Denies: change in energy level Endocrine: Denies: fatigue Hematological/Lymphatic: Denies: easy bruising Allergic/Immunologic: Denies: facial swelling, urticaria Pediatric Exam - General Limitations: no limitations General appearance: well-appearing, well-hydrated, active, well-nourished - Head Head exam: normocephalic, atruamatic, normal inspection - Expanded Head Exam Head exam: Present: contusion - Eye Eye exam: Present: normal appearance, PERRL, EOMI - ENT ENT exam: normal exam, normal oropharynx, mucous membranes moist - Neck Neck exam: Present: normal inspection, full ROM - Expanded Neck Exam Neck exam: Present: midline tenderness - Chest Chest inspection: Present: normal inspection, symmetric chest wall rise - Respiratory Respiratory exam: Present: normal lung sounds bilaterally Course Vital Signs Temperature 98.2 F 03/29/18 14:46 Pulse Rate 100 03/29/18 14:46 Respiratory Rate 18 03/29/18 14:46 Blood Pressure 95/62 03/29/18 14:46 O2 Sat by Pulse Oximetry 94 03/29/18 14:46 Temperature 98.2 F 03/29/18 14:46 Pulse Rate 95 03/29/18 16:06 Respiratory Rate 20 03/29/18 16:06 Blood Pressure 93/52 03/29/18 16:06 O2 Sat by Pulse Oximetry 95 03/29/18 16:06 Oxygen Delivery Oxygen Delivery Room Air Medical Decision Making - Lab Data Result diagrams: 03/29/18 16:01 03/29/18 16:01 Lab Results 03/29/18 03/29/18 Range/Units 16:01 16:01 WBC 22.7 H (4.3-11.1) K/mcL RBC 4.34 (4.19-5.50) M/mcL Hgb 11.4 L (12.9-16.9) g/dL Hct 35.9 L (37.5-50.1) % MCV 82.7 L (83.0-100.0) fL MCH 26.3 L (28.0-33.3) pg MCHC 31.8 (31.6-35.5) g/dL RDW 15.0 H (11.5-14.5) % Plt Count 559 H (140-400) K/mcL MPV 9.6 (9.4-12.4) fL Immature Gran % 1.1 (0-4) % Seg Neutrophils % 74.1 % Lymphocytes % 14.4 % Monocytes % 9.3 % Eosinophils % 0.6 % Basophils % 0.5 % Neutrophils # 16.8 H (1.6-8.9) K/mcL Lymphocytes # 3.3 (0.6-4.6) K/mcL Monocytes # 2.1 H (0.0-1.3) K/mcL Eosinophils # 0.1 (0.0-0.6) K/mcL Basophils # 0.1 (0.0-0.2) K/mcL Sodium 137 (136-145) mEq/L Potassium 3.3 L (3.5-5.1) mEq/L Chloride 91 L (98-107) mEq/L Carbon Dioxide 26 (23-29) mEq/L BUN 22 (8-23) mg/dL Creatinine 1.83 H (0.70-1.30) mg/dL Est GFR ( Amer) 45 L (> 60) Est GFR (Non-Af Amer) 37 L (> 60) BUN/Creatinine Ratio 12 (6-26) Glucose 117 H (70-105) mg/dL Calculated Osmolality 288 (280-300) Calcium 6.7 L (8.6-10.3) mg/dL Troponin I 0.03 (< 0.04) ng/mL
--- NOTE | 2018-03-29 16:51 | Emergency Department Note ---
Disposition Clinical Impression: Atrial fibrillation with RVR, Acute exacerbation of chronic obstructive airways disease Disposition: Still a Patient Condition: Fair Referrals: Bulmaro Negro MD [Primary Care Provider] - Forms: ED Satisfaction Letter Time of Disposition: 16:52 SOB HPI - General Chief Complaint: ED Shortness of Breath/Dyspnea Stated Complaint: TAMMIE Time Seen by Provider: 03/29/18 16:16 Source: patient Mode of arrival: wheelchair Limitations: no limitations Nursing Notes Reviewed: Yes Vital Signs Reviewed: Yes - History of Present Illness 72-year-old with a history COPD who comes in with increasing shortness of breath and wheezing. Patient had a recent echo which showed an EF of 60-65%. Pt Subjective Complaint: shortness of breath Onset (ago): day(s) Context: recent illness Severity: moderate Consistency/Duration: constant Improves with: nothing Worsens with: exertion Known history of: COPD Associated symptoms: Reports: wheezing Treatment prior to arrival: none - Related Data Home Medications Medication Instructions Recorded Confirmed Furosemide [Lasix] 40 mg PO 03/12/18 Labetalol HCl 200 mg PO 03/12/18 Methocarbamol [Robaxin] 500 mg PO 03/12/18 Methocarbamol [Robaxin] 500 mg PO 03/12/18 Potassium Chloride 20 meq PO DAILY 03/12/18 03/12/18 Rivaroxaban [Xarelto] 20 mg PO 03/12/18 Tramadol HCl [Ultram] 50 mg PO TID PRN 03/12/18 03/12/18 Previous Rx's Medication Instructions Recorded Acetaminophen [Tylenol] 650 mg PO Q6HR PRN tablet 02/25/18 Cholecalciferol (Vitamin D3) 5,000 unit PO QAM 30 Days #30 02/25/18 [Vitamin D3] tablet Lisinopril [Zestril] 40 mg PO DAILY 30 Days #30 tablet 02/25/18 Omeprazole [PriLOSEC] 40 mg PO BID 30 Days #60 cap 02/25/18 Oxybutynin Chloride [Ditropan Xl] 15 mg PO DAILY 30 Days #30 02/25/18 tab.er.[id number] Supplies [SUPPLIES] 1 each .ROUTE DAILY PRN #1 each 03/11/18 Allergies Allergy/AdvReac Type Severity Reaction Status Date / Time No Known Allergies Allergy Verified 01/15/18 08:57 All systems ED: reviewed and negative except as stated. Constitutional: Denies: fever, chills, weakness, weight change Eyes: Denies: eye pain, eye discharge, vision change ENT ED: Denies: ear pain, throat pain, dental pain, hearing loss, epistaxis, congestion, dysphagia Cardiovascular: Denies: chest pain, palpitations, dyspnea on exertion, edema, syncope Respiratory: Reports: cough, dyspnea, wheezes. Denies: hemoptysis, stridor Gastrointestinal: Denies: abdominal pain, nausea, vomiting, diarrhea, constipation, hematemesis, melena, hematochezia Genitourinary: Denies: urgency, dysuria, frequency, hematuria Musculoskeletal: Denies: back pain, neck pain, arthralgia, myalgia Integumentary: Denies: rash, abrasion, lesions Neurological: Denies: headache, weakness, numbness, paresthesias, confusion, abnormal gait, vertigo Psychiatric: Denies: anxiety, depression, suicidal thoughts, homicidal thoughts , auditory hallucinations, visual hallucinations Endocrine: Denies: fatigue Hematological/Lymphatic: Denies: easy bleeding, easy bruising Allergic/Immunologic: Denies: facial swelling, urticaria Past Medical History - Past Medical History Medical history: Reports: atrial fibrillation, cancer, CHF, COPD, diabetes, GERD , hyperlipidemia, hypertension, malignancy, venous stasis Surgical history: Reports: appendectomy, cholecystectomy, herniorrhaphy, knee replacement Psychiatric history: Reports: anxiety - Social History Smoking Status: Never smoker Smokeless Tobacco Status: No Alcohol use: Reports: none Drug use: Reports: none Physical Exam - General Limitations: no limitations General appearance: alert, in no apparent distress - Head Head exam: atraumatic, normocephalic, normal inspection - Eye Eye exam: Present: normal appearance, PERRL, EOMI - ENT ENT exam: normal exam, normal oropharynx, mucous membranes moist - Neck Neck exam: Present: normal inspection, full ROM, trachea midline - Chest Chest inspection: Present: normal inspection, symmetric chest wall rise - Respiratory Respiratory exam: Present: wheezes - Cardiovascular Cardiovascular exam: Present: tachycardia, irregular rhythm - Abdominal Exam Abdominal exam: Present: soft, Non-Tender. Absent: tenderness, distention, guarding, rebound, rigidity - Extremities Exam Extremities exam: Present: normal inspection, full ROM. Absent: tenderness, pedal edema - Expanded Lower Extremity Exam Neurovascular/Tendon exam: Absent: motor deficit, sensory deficit, tendon deficit Gait: observed and normal - Back Exam Back exam: Present: normal inspection, full ROM. Absent: tenderness - Neurological Exam Neurological exam: Present: alert, oriented X3 - Psychiatric Psychiatric exam: Present: normal affect, normal mood - Skin Skin exam: Present: warm, dry, intact, normal color Course - Reevaluation(s) Reevaluation #1: 72-year-old male with history of COPD comes in with increasing shortness of breath. White count elevated at 22, lactic acid is 2.1. Consultation obtained with the hospitalist who saw the patient request we start some Cardizem. Time: 18:15 - Consultations Consultation #1: Discussed with , admit. Time: 16:52 Vital Signs Temperature 98.2 F 03/29/18 14:46 Pulse Rate 100 03/29/18 14:46 Respiratory Rate 18 03/29/18 14:46 Blood Pressure 95/62 03/29/18 14:46 O2 Sat by Pulse Oximetry 94 03/29/18 14:46 Temperature 98.2 F 03/29/18 14:46 Pulse Rate 95 03/29/18 16:06 Respiratory Rate 20 03/29/18 17:11 Blood Pressure 93/52 03/29/18 16:06 O2 Sat by Pulse Oximetry 98 03/29/18 17:11 Oxygen Delivery Oxygen Delivery Room Air Shortness of Breath/Dyspnea - Lab Data Result diagrams: 03/29/18 16:01 03/29/18 16:01 Lab Results 03/29/18 03/29/18 03/29/18 Range/Units 16:01 16:01 16:01 WBC 22.7 H (4.3-11.1) K/mcL RBC 4.34 (4.19-5.50) M/mcL Hgb 11.4 L (12.9-16.9) g/dL Hct 35.9 L (37.5-50.1) % MCV 82.7 L (83.0-100.0) fL MCH 26.3 L (28.0-33.3) pg MCHC 31.8 (31.6-35.5) g/dL RDW 15.0 H (11.5-14.5) % Plt Count 559 H (140-400) K/mcL MPV 9.6 (9.4-12.4) fL Immature Gran % 1.1 (0-4) % Seg Neutrophils % 74.1 % Lymphocytes % 14.4 % Monocytes % 9.3 % Eosinophils % 0.6 % Basophils % 0.5 % Neutrophils # 16.8 H (1.6-8.9) K/mcL Lymphocytes # 3.3 (0.6-4.6) K/mcL Monocytes # 2.1 H (0.0-1.3) K/mcL Eosinophils # 0.1 (0.0-0.6) K/mcL Basophils # 0.1 (0.0-0.2) K/mcL Sample Site ABG pH (7.32-7.45) pH Units ABG pCO2 (35-45) mmHg ABG pO2 (85-104) mmHg ABG HCO3 (21-27) mEq/L ABG Total CO2 (20-26) mEq/L ABG O2 Saturation (95-98) % ABG Base Excess (-2 to 3) mEq/L Jonathan Test O2 Delivery Device Inspired O2 (1-15=lpm [id number]=%) Sodium 137 (136-145) mEq/L Potassium 3.3 L (3.5-5.1) mEq/L Chloride 91 L (98-107) mEq/L Carbon Dioxide 26 (23-29) mEq/L BUN 22 (8-23) mg/dL Creatinine 1.83 H (0.70-1.30) mg/dL Est GFR ( Amer) 45 L (> 60) Est GFR (Non-Af Amer) 37 L (> 60) BUN/Creatinine Ratio 12 (6-26) Glucose 117 H (70-105) mg/dL Calculated Osmolality 288 (280-300) Lactic Acid 2.1 (0.5-2.2) mmol/L Calcium 6.7 L (8.6-10.3) mg/dL Troponin I 0.03 (< 0.04) ng/mL B-Natriuretic Peptide (Less than 100) pg/mL 03/29/18 03/29/18 03/29/18 Range/Units 16:01 17:03 17:14 WBC (4.3-11.1) K/mcL RBC (4.19-5.50) M/mcL Hgb (12.9-16.9) g/dL Hct (37.5-50.1) % MCV (83.0-100.0) fL MCH (28.0-33.3) pg MCHC (31.6-35.5) g/dL RDW (11.5-14.5) % Plt Count (140-400) K/mcL MPV (9.4-12.4) fL Immature Gran % (0-4) % Seg Neutrophils % % Lymphocytes % % Monocytes % % Eosinophils % % Basophils % % Neutrophils # (1.6-8.9) K/mcL Lymphocytes # (0.6-4.6) K/mcL Monocytes # (0.0-1.3) K/mcL Eosinophils # (0.0-0.6) K/mcL Basophils # (0.0-0.2) K/mcL Sample Site R Radial R Radial ABG pH 7.48 H 7.50 H (7.32-7.45) pH Units ABG pCO2 42 38 (35-45) mmHg ABG pO2 33 L* 92 D (85-104) mmHg ABG HCO3 31 H 29 H (21-27) mEq/L ABG Total CO2 32 H 31 H (20-26) mEq/L ABG O2 Saturation 67 L 98 (95-98) % ABG Base Excess 7 H 6 H (-2 to 3) mEq/L Jonathan Test Positive Positive O2 Delivery Device Cannula Cannula Inspired O2 28.0 28.0 (1-15=lpm [id number]=%) Sodium (136-145) mEq/L Potassium (3.5-5.1) mEq/L Chloride (98-107) mEq/L Carbon Dioxide (23-29) mEq/L BUN (8-23) mg/dL Creatinine (0.70-1.30) mg/dL Est GFR ( Amer) (> 60) Est GFR (Non-Af Amer) (> 60) BUN/Creatinine Ratio (6-26) Glucose (70-105) mg/dL Calculated Osmolality (280-300) Lactic Acid (0.5-2.2) mmol/L Calcium (8.6-10.3) mg/dL Troponin I (< 0.04) ng/mL B-Natriuretic Peptide 92 (Less than 100) pg/mL - EKG Data EKG attestation: Yes I reviewed and interpreted this EKG. Rate: Reports: tachycardia Rhythm: Reports: A.Fib Interpretation: Reports: no acute changes
[2018-03-29] MEDS ORDERED: methylPREDNISolone 125 MG/2 ML VIAL IVP ONE (16:52)
[2018-03-29 17:11] LABS: ABG Base Excess 7 mEq/L (-2 to 3); ABG HCO3 31 mEq/L (21-27); ABG Oxygen Saturation 67 % (95-98); ABG PCO2 42 mmHg (35-45); ABG PH 7.48 pH Units (7.32-7.45); ABG PO2 33 mmHg (85-104); ABG TCO2 32 mEq/L (20-26)
[2018-03-29 17:17] LABS: ABG Base Excess 6 mEq/L (-2 to 3); ABG HCO3 29 mEq/L (21-27); ABG Oxygen Saturation 98 % (95-98); ABG PCO2 38 mmHg (35-45); ABG PO2 92 mmHg (85-104); ABG TCO2 31 mEq/L (20-26)
[2018-03-29] MEDS ORDERED: Piperacillin/Tazobactam 3.375 GM in 0.9 % Sodium Chloride Mini Bag 100 ML IVPB ONE (18:14)
--- NOTE | 2018-03-29 19:58 | Internal Med History&Physical ---
Date of Encounter: 03/29/18 Time of Encounter: 19:49 Internal Medicine - H&P: HPI Admitted From: Home Plans for Post Hospital Care: Transfer Inp Rehab Fac History of present illness: Mr. Jimenez is a 72 year old male who is almost bedridden or wheelchair bound with history of A. fib due to history of GI bleed as per previous note by family and patient not sure, diabetes mellitus, hypertension, mild diastolic dysfunction with EF 60-65%, chronic venous stasis, urinary incontinence recently fully catheter removed, status post cholecystectomy in January and was on short-term rehabilitation, COPD he supposed to use home oxygen but does not use, recently diagnosed distal esophageal carcinoma and plan for chemoradiation therapy soon was sent to ER by his PCP for progressively worsening of white count even on antibiotic for possible cellulitis treatment. In ER patient was found to have A. fib with RVR therefore Cardizem was given and patient responded well. Initial lab with high white count, low potassium, raised creatinine level. Chest x-ray with no acute finding but on reviewing appear questionable infiltration bihilar area. Patient complained of cough, vomiting, nausea, generalized weakness, decreased oral intake but denies chest pain headache dizziness, abdominal pain, diarrhea, constipation. Patient and family is poor historian . Past Med Surg Social Fam HX - Past Medical History Medical history: atrial fibrillation, cancer, CHF, COPD, diabetes, GERD, hyperlipidemia, hypertension, malignancy, venous stasis Psychiatric history: anxiety - Past Surgical History Surgical History: appendectomy, cholecystectomy, herniorrhaphy, knee replacement - Social History Smoking Status: Never smoker Smokeless Tobacco Status: No Alcohol use: none Drug use: none - Family History Mother Living Status: Hx Family Cardiac Disorders: Yes (HTN) Father Living Status: Hx Family Cardiac Disorders: Yes (CHF, HTN) Hx Family Respiratory Disorders: No Hx Family Cancer: No Hx Family Endocrine Disorder: No Internal Medicine - H&P: Meds Furosemide [Lasix] 20 mg PO BID 03/29/18 [History] Lisinopril [Zestril] 40 mg PO DAILY 03/29/18 [History] Metformin HCl [Metformin HCl ER] 1,000 mg PO BID 03/29/18 [History] Metoprolol Succinate [Toprol Xl] 100 mg PO DAILY 03/29/18 [History] Omeprazole [PriLOSEC] 40 mg PO DAILY 03/29/18 [History] Oxybutynin Chloride [Ditropan Xl] 15 mg PO DAILY 03/29/18 [History] Pantoprazole Sodium [Protonix] 40 mg PO DAILY 03/29/18 [History] SitaGLIPtin [Januvia] 100 mg PO DAILY 03/29/18 [History] Tramadol HCl [Ultram] 50 mg PO TID PRN 03/29/18 [History] 3 Allergy/AdvReac Type Severity Reaction Status Date / Time No Known Allergies Allergy Verified 03/29/18 18:46 All Systems PM: as documented above in the HPI. - Constitutional Vitals: Temp Pulse Resp BP Pulse Ox 98.2 F 102 18 102/57 94 03/29/18 14:46 03/29/18 18:36 03/29/18 18:36 03/29/18 18:36 03/29/18 18:36 Exam: General appearance: Morbid obese, 2 L oxygen by nasal cannula, alert awake oriented to place person but not with time. Family at bedside, Head exam: Atraumatic Eye exam: EOMI, PERRLA ENT exam: Moist oral mucosa Neck nontender, supple Respiratory exam: Bilateral crepitation at the base Cardiovascular exam: Normal rate with A. fib, no systolic murmur Abdominal exam: Soft, nontender, nondistended, positive bowel sounds Extremities exam: No calf tenderness, +2 pedal edema Present: chronic venous stass stasis [facility] Neurological exam: CN II-XII intact, no focal deficits. No facial droop. Slow speech. Not able to walk. Motor 5 x 5 in upper extremity symmetrical and lower extremity for 4/5 symmetrical Internal Med - H&P Results - Labs CBC & Chem 7: 03/29/18 16:01 03/29/18 16:01 Labs: Short CBC 03/29/18 Range/Units 16:01 WBC 22.7 H (4.3-11.1) K/mcL Hgb 11.4 L (12.9-16.9) g/dL Hct 35.9 L (37.5-50.1) % Plt Count 559 H (140-400) K/mcL Neutrophils # 16.8 H (1.6-8.9) K/mcL BMP 03/29/18 16:01 Sodium 137 Potassium 3.3 L Chloride 91 L Carbon Dioxide 26 BUN 22 Creatinine 1.83 H Glucose 117 H Calcium 6.7 L Cardiac Enzymes 03/29/18 Range/Units 16:01 Troponin I 0.03 (< 0.04) ng/mL - ABG Interpretation ABG results: 03/29/18 03/29/18 17:03 17:14 ABG pH 7.48 H 7.50 H ABG pCO2 42 38 ABG pO2 33 L* 92 D ABG HCO3 31 H 29 H ABG Total CO2 32 H 31 H ABG O2 Saturation 67 L 98 ABG Base Excess 7 H 6 H - Impressions ITS Impressions Chest X-Ray 03/29/18 15:59 IMPRESSION: Stable cardiomegaly. No acute pneumonia or acute congestive heart failure. D/ / Jayden Locke MD / Jayden Locke MD Interpreting Provider: Jayden Locke MD - Assessment and plan (1) Pneumonia Current Visit: Yes Status: Acute Assessment and plan: Based on clinical assessment patient has cough, shortness of breath, leukocytosis, crepitation auscultation. Official reading of chest x-ray with no infiltrate but on reviewing the film it appeared infiltrated bihilar area. Patient also had exposure of health care system therefore high-risk to develop HCAP. Broader spectrum antibiotic is started along with a sputum culture. Persistent and progressive worsening of white count even on antibiotic possible cellulitis of lower extremities by PCP but no respond therefore sent to ER for further evaluation and rule out underlying sepsis. Blood culture, urine culture ordered and broader spectrum antibiotic vancomycin and Zosyn as started. Doppler venous ultrasound ordered to rule out DVT as well. Monitor CBC. Qualifiers: Pneumonia type: due to unspecified organism Laterality: unspecified laterality Lung location: unspecified part of lung Qualified Code(s): J18.9 - Pneumonia, unspecified organism (2) COPD exacerbation Current Visit: Yes Status: Acute Assessment and plan: Patient had short of breath, cough and concern of COPD exacerbation in the ER therefore Solu-Medrol loading dose was started. Patient already had history of COPD there could be contributing factor as well but at this time patient is not wheezing but has decreased breath sound bilateral. Solu-Medrol 40 mg IV every 6 along with oxygen supplementation and DuoNeb (3) Atrial fibrillation with RVR Current Visit: Yes Status: Acute Assessment and plan: Chronic A. fib. Had A. fib with RVR in the ER but better after giving diltiazem. Patient is not on anticoagulation as history of GI bleed and also recently diagnosed esophageal cancer. Continue rate control medication. Will consult heel room supervisor if needed. Recent echo with ejection fraction 60-65%. (4) Esophageal cancer Current Visit: Yes Status: Acute Assessment and plan: Distal. recently diagnosed. Chemoradiation is planned. Consider oncologists consultation tomorrow morning for further plan. Qualifiers: Malignant neoplasm of esophagus location: lower third Qualified Code(s): C15.5 - Malignant neoplasm of lower third of esophagus (5) SUNI (acute kidney injury) Current Visit: Yes Status: Acute Assessment and plan: Baseline creatinine 1.1. Gentle hydration with a strict I&O's. Avoid nephrotoxic drug. Therefore lisinopril, diuretic, metformin on hold (6) Electrolyte imbalance Current Visit: Yes Status: Acute Assessment and plan: Monitor and replacement of potassium (7) Hypertension Current Visit: Yes Status: Acute Assessment and plan: Monitor. That pressure in the ER therefore no blood pressure medicine at this time but will consider Hydralazine when blood pressure high Qualifiers: Hypertension type: essential hypertension Qualified Code(s): I10 - Essential (primary) hypertension (8) Venous stasis dermatitis of both lower extremities Current Visit: Yes Status: Acute Assessment and plan: Chronic. Superimposed cellulitis has been treated by PCP. Doppler venous ultrasound ordered. Continue broader spectrum antibiotic as mentioned above. 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
[2018-03-29] MEDS ORDERED: Naloxone 0.4 MG/ML INJ IVP PRN (20:00)
[2018-03-29] MEDS ORDERED: Vancomycin 1,750 MG in 0.9 % Sodium Chloride 250 ML IVPB SCH (21:00)
[2018-03-29] MEDS: 0.9 % Sodium Chloride 1,000 ML IVC SCH (22:29)
[2018-03-29] MEDS: *HR* Heparin 5,000 UNIT/ML VIAL SQ SCH (22:29)
[2018-03-29] MEDS ORDERED: 0.9 % Sodium Chloride 250 ML IVC ONE (23:25)
[2018-03-29] MEDS: MethylPREDNISolone 40 MG/ML VIAL IVP SCH (23:46)
[2018-03-30 05:23] LABS: Basophils % 0.2 %; Hematocrit 33.5 % (37.5-50.1); Hemoglobin 10.4 g/dL (12.9-16.9); Immature Granulocytes % 0.9 % (0-4); Lymphocytes # 0.8 K/mcL (0.6-4.6); Lymphocytes % 6.5 %; Mean Corpuscular Hemoglobin 26.2 pg (28.0-33.3); Mean Corpuscular Volume 84.4 fL (83.0-100.0); Mean Platelet Volume 10.1 fL (9.4-12.4); Monocytes # 0.1 K/mcL (0.0-1.3); Monocytes % 1.1 %; Neutrophils # 11.2 K/mcL (1.6-8.9); Platelet Count 422 K/mcL (140-400); Red Blood Count 3.97 M/mcL (4.19-5.50); Red Cell Distribution Width 15.2 % (11.5-14.5); Segmented Neutrophils % 91.3 %
[2018-03-30 05:35] LABS: Calcium 6.1 mg/dL (8.6-10.3)
[2018-03-30] MEDS: *HR* Heparin 5,000 UNIT/ML VIAL SQ SCH ×3 (06:23→21:36)
[2018-03-30] MEDS: MethylPREDNISolone 40 MG/ML VIAL IVP SCH (06:23)
[2018-03-30] MEDS: Metoprolol XL (24 HR) Succ 50 MG TAB.ER.24H PO SCH (08:08)
[2018-03-30] MEDS: Piperacillin/Tazobactam 3.375 GM in 0.9 % Sodium Chloride Mini Bag 100 ML IVPB SCH ×3 (08:14→23:36)
[2018-03-30] MEDS ORDERED: D5% in Water 1,000 ML IVC PRN (08:36)
[2018-03-30] MEDS ORDERED: Dextrose Gel 15 GM/37.5 ML TUBE PO PRN ×2 (08:36)
[2018-03-30] MEDS ORDERED: *HR* Dextrose 50 % in Water (Syg) 50 ML SYRINGE IVP PRN (08:36)
--- NOTE | 2018-03-30 11:26 | Internal Med Progress Note ---
<Shayne Chowdary - Last Filed: 03/30/18 11:22> Date of Encounter: 03/30/18 Time of Encounter: 11:22 - Assessment and plan (1) Atrial fibrillation with RVR Current Visit: Yes Status: Resolved Assessment and plan: Patient was started on Cardizem drip at 5 mg an hour. Currently his heart rate is controlled at 89. Will plan to wean down on Cardizem drip. Continue home dose of metoprolol succinate. Likely patient's A. fib RVR secondary to sepsis and he will not need additional medication to control his atrial fibrillation. (2) Esophageal cancer Current Visit: Yes Status: Acute Assessment and plan: Recently diagnosed with esophageal cancer with plan oon undergoing chemoradiation. Oncology notified that patient in hospital. Patient will have follow up appointment at discharge with oncology. Patient reports 40 pound weight loss in last 6 months. He reports no difficulty in swallowing. Qualifiers: Malignant neoplasm of esophagus location: lower third Qualified Code(s): C15.5 - Malignant neoplasm of lower third of esophagus (3) SUNI (acute kidney injury) Current Visit: Yes Status: Acute Assessment and plan: Secondary to sepsis. Baseline 1.1. Improving. Continue IV fluids. (4) Electrolyte imbalance Current Visit: Yes Status: Acute Assessment and plan: Patient's magnesium was 0.5. We are placing currently. Potassium is within normal limits today. Recheck magnesium tomorrow morning. (5) Diabetes mellitus Current Visit: Yes Status: Acute Assessment and plan: Patient has a history of diabetes mellitus type II. Last hemoglobin A1c was 7.8. He is currently on metformin and Januvia. Inpatient we will start a diabetic diet and sliding scale insulin. Qualifiers: Diabetes mellitus type: type 2 Diabetes mellitus [facility] insulin use: without [facility] use Diabetes mellitus complication status: with circulatory complication Qualified Code(s): E11.51 - Type 2 diabetes mellitus with diabetic peripheral angiopathy without gangrene (6) Hypertension Current Visit: Yes Status: Acute Assessment and plan: Patient has history of hypertension. Currently we are holding his hypertensive medications until his SUNI has resolved. Qualifiers: Hypertension type: essential hypertension Qualified Code(s): I10 - Essential (primary) hypertension (7) Venous stasis dermatitis of both lower extremities Current Visit: Yes Status: Acute Assessment and plan: Chronic. Doppler venous ultrasound negative for DVT. Follow-up with PCP. (8) DVT prophylaxis Current Visit: Yes Status: Acute Assessment and plan: Heparin subcutaneous. (9) COPD exacerbation Current Visit: Yes Status: Ruled-out Assessment and plan: Unlikely patient has COPD exacerbation. He denies shortness of breath, cough or sputum production. We will discontinue steroids. (10) Pneumonia Current Visit: Yes Status: Ruled-out Assessment and plan: Clinically patient does not fit diagnosis pneumonia. He reports that he has not had fevers, chills, sputum production, coughing, shortness of breath. Chest x-ray is negative for infiltrates. Qualifiers: Pneumonia type: due to unspecified organism Laterality: unspecified laterality Lung location: unspecified part of lung Qualified Code(s): J18.9 - Pneumonia, unspecified organism (11) Severe sepsis Current Visit: Yes Status: Acute Assessment and plan: Patient was tachycardic, with leukocytosis and found to have SUNI Patient's tachycardia has resolved. And his leukocytosis is improving. Initial lactic acid was 2.1 and now is 1.0. Etiology of sepsis includes UTI. Patient has a chronic Tomlinson catheter secondary to incontinence that was removed in the emergency department. In the past patient has had MRSA bacteremia, MRSA and enterococcus UTI. At this point we will continue patient on vancomycin and Zosyn and await blood culture and urine culture sensitivities. - Time Spent With Patient Total time spent is greater than 50% in coordination of care (as documented) at patient's floor/unit and/or counseling patient: - Subjective Interval history: 72-year-old male presented from oncologist's office (esophageal cancer) after being found to have elevated white blood cell count. Patient reports that he has not experienced headache, blurry vision, ear pain, ear discharge, sore throat, sputum production, neck pain, chest pain, shortness of breath, abdominal pain, nausea, vomiting, diarrhea, lower extremity pain, fever, chills. He does report being fatigued for the past couple days. Patient was scheduled to start chemotherapy and radiation today however due to this white blood cell count he was sent to the hospital. Initial admitting diagnosis was A. fib RVR and pneumonia. Patient was started on Cardizem drip and also on vancomycin and Zosyn. - Constitutional Vitals: Temp Pulse Resp BP Pulse Ox 97.7 F 89 16 94/68 92 03/30/18 10:56 03/30/18 10:56 03/30/18 10:56 03/30/18 10:56 03/30/18 10:56 - Other Additional findings: General: Pleasant without distress HEENT: Head atraumatic, normocephalic, EOMI, PERRL, neck nontender to palpation , absent lymphadenopathy, Moist Mucous Membranes, Heart: Irregularly irregular. Heart rate less than 100 Lungs: Clear to auscultation bilaterally Abdomen: Soft nontender, nondistended positive bowel sounds. Status post laparoscopic cholecystectomy. Incisions intact without erythema. Skin: Bilateral lower extremity discoloration on shins likely secondary to vascular insufficiency without erythema or discharge. Extremities: 1+ bilateral pedal edema Neuro: Alert oriented 3 Vascular: Pedal and radial pulses 2 out of 4 Internal Medicine: Result - Labs CBC & Chem 7: 03/30/18 04:38 03/30/18 04:38 Labs: Short CBC 03/30/18 Range/Units 04:38 WBC 12.3 H (4.3-11.1) K/mcL Hgb 10.4 L (12.9-16.9) g/dL Hct 33.5 L (37.5-50.1) % Plt Count 422 H (140-400) K/mcL Neutrophils # 11.2 H (1.6-8.9) K/mcL BMP 03/30/18 04:38 Sodium 140 Potassium 4.0 Chloride 94 L Carbon Dioxide 26 BUN 24 H Creatinine 1.61 H Glucose 207 H Calcium 6.1 L Cardiac Enzymes 03/29/18 03/30/18 03/30/18 Range/Units 22:27 04:38 10:06 Troponin I < 0.03 0.03 0.03 (< 0.04) ng/mL - ABG Interpretation ABG results: ABG ABG pH 7.50 pH Units (7.32-7.45) H 03/29/18 17:14 ABG pCO2 38 mmHg (35-45) 03/29/18 17:14 ABG pO2 92 mmHg (85-104) D 03/29/18 17:14 ABG O2 Saturation 98 % (95-98) 03/29/18 17:14 Consult Discharge Plan - Plan Referrals: Bulmaro Negro MD [Primary Care Provider] - <Jude Yi T - Last Filed: 03/30/18 13:08> Date of Encounter: 03/30/18 - Assessment and plan (1) Atrial fibrillation with RVR Current Visit: Yes Status: Resolved (2) Esophageal cancer Current Visit: Yes Status: Acute Qualifiers: Malignant neoplasm of esophagus location: lower third Qualified Code(s): C15.5 - Malignant neoplasm of lower third of esophagus (3) SUNI (acute kidney injury) Current Visit: Yes Status: Acute (4) Electrolyte imbalance Current Visit: Yes Status: Acute (5) Diabetes mellitus Current Visit: Yes Status: Acute Qualifiers: Diabetes mellitus type: type 2 Diabetes mellitus [facility] insulin use: without [facility] use Diabetes mellitus complication status: with circulatory complication Qualified Code(s): E11.51 - Type 2 diabetes mellitus with diabetic peripheral angiopathy without gangrene (6) Hypertension Current Visit: Yes Status: Acute Qualifiers: Hypertension type: essential hypertension Qualified Code(s): I10 - Essential (primary) hypertension (7) Venous stasis dermatitis of both lower extremities Current Visit: Yes Status: Acute (8) DVT prophylaxis Current Visit: Yes Status: Acute (9) COPD exacerbation Current Visit: Yes Status: Ruled-out (10) Pneumonia Current Visit: Yes Status: Ruled-out Qualifiers: Pneumonia type: due to unspecified organism Laterality: unspecified laterality Lung location: unspecified part of lung Qualified Code(s): J18.9 - Pneumonia, unspecified organism (11) Severe sepsis Current Visit: Yes Status: Acute - Time Spent With Patient Total time spent is greater than 50% in coordination of care (as documented) at patient's floor/unit and/or counseling patient: - Constitutional Vitals: Temp Pulse Resp BP Pulse Ox 97.7 F 89 16 94/68 92 03/30/18 10:56 03/30/18 10:56 03/30/18 10:56 03/30/18 10:56 03/30/18 10:56 Internal Medicine: Result - Labs CBC & Chem 7: 03/30/18 04:38 03/30/18 04:38 Labs: Short CBC 03/30/18 Range/Units 04:38 WBC 12.3 H (4.3-11.1) K/mcL Hgb 10.4 L (12.9-16.9) g/dL Hct 33.5 L (37.5-50.1) % Plt Count 422 H (140-400) K/mcL Neutrophils # 11.2 H (1.6-8.9) K/mcL BMP 03/30/18 04:38 Sodium 140 Potassium 4.0 Chloride 94 L Carbon Dioxide 26 BUN 24 H Creatinine 1.61 H Glucose 207 H Calcium 6.1 L Cardiac Enzymes 03/29/18 03/30/18 03/30/18 Range/Units 22:27 04:38 10:06 Troponin I < 0.03 0.03 0.03 (< 0.04) ng/mL - ABG Interpretation ABG results: ABG ABG pH 7.50 pH Units (7.32-7.45) H 03/29/18 17:14 ABG pCO2 38 mmHg (35-45) 03/29/18 17:14 ABG pO2 92 mmHg (85-104) D 03/29/18 17:14 ABG O2 Saturation 98 % (95-98) 03/29/18 17:14 - Attending Attestation examined this patient 03/30, and my medical decision-making was reviewed with the Resident Physician. I agree with the documented findings, disposition and treatment plan as described except to the extent set forth below. 72 M, seen and evaluated at the bedside with his spouse. 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 DVT has been ruled out by a Doppler of his LE He denies shortness of breath or wheezing, no new complains Physical exam: VSS, HR now controlled, BP WNL, AAOX3, no gross neurologic deficits, chest is CTAB, with no wheezing, or rhonchi, abdomen is soft and not tender LE with venostasis changes Labs and Imaging reviewed A/P Severe Sepsis, SUNI, Hx of CHFpEF, Hx of COPD (not in exacerbation at this time) , hypomagnessemia, Discontinue steroids , continue cardizem and taper off with aim to increase po dosing, continue antibiotics High risk due to diagnosis of sepsis , use of Vanco which needs close monitoring as well as SUNI. Avoid nephrotoxins Continue gentle hydration Follow all cultures Continue current antibiotics monitor vanco trough Rest of details as in the resident physician's documentation
[2018-03-30] MEDS: Insulin LISPRO 300 UNITS/3 ML VIAL SQ SCH ×3 (11:54→21:37)
[2018-03-30] MEDS: 0.9 % Sodium Chloride 1,000 ML IVC SCH (15:38)
--- NOTE | 2018-03-30 16:12 | Electrocardiograph Report ---
[place] [id number] Test Date: 2018-03-29 Pat Name: Anders Jimenez Department: 104 Room: 2NE29 Gender: M Ammonia Box Operator: : [id number] Requested By: Zaira See Order Number: [id number] Reading MD: Jumana Christian Measurements Intervals [place] Rate: 114 P: VA: 0 QRS: -9 QRSD: 98 T: -18 QT: 371 QTc: 439 Interpretive Statements ARTIFACT LIMITS INTERPRETATION RECOMMEND REPEAT ECG Electronically Signed On 03-30-2018 16:11:09 EDT by Jumana Christian
[2018-03-31] MEDS: *HR* Heparin 5,000 UNIT/ML VIAL SQ SCH ×3 (05:32→21:15)
[2018-03-31 06:46] LABS: Basophils % 0.1 %; Eosinophils % 0.1 %; Hematocrit 30.5 % (37.5-50.1); Hemoglobin 9.6 g/dL (12.9-16.9); Lymphocytes # 1.2 K/mcL (0.6-4.6); Mean Corpuscular HGB Conc 31.5 g/dL (31.6-35.5); Mean Corpuscular Hemoglobin 27.2 pg (28.0-33.3); Mean Corpuscular Volume 86.4 fL (83.0-100.0); Monocytes # 1.1 K/mcL (0.0-1.3); Monocytes % 5.9 %; Neutrophils # 16.9 K/mcL (1.6-8.9); Platelet Count 407 K/mcL (140-400); Red Blood Count 3.53 M/mcL (4.19-5.50); Red Cell Distribution Width 15.4 % (11.5-14.5); Segmented Neutrophils % 86.9 %
[2018-03-31 07:06] LABS: Calcium 5.9 mg/dL (8.6-10.3); Magnesium 1.4 mg/dL (1.6-2.6); Potassium 3.2 mEq/L (3.5-5.1)
[2018-03-31] MEDS ORDERED: Potassium Chloride Elixir 20 MEQ/15 ML UDC PO ONE (08:23)
--- NOTE | 2018-03-31 09:40 | Internal Med Progress Note ---
<Shayne Chowdary - Last Filed: 03/31/18 09:37> Date of Encounter: 03/31/18 Time of Encounter: 09:38 - Assessment and plan (1) Severe sepsis Current Visit: Yes Status: Acute Assessment and plan: Patient was tachycardic, with leukocytosis and found to have SUNI Patient's tachycardia has resolved. And his leukocytosis is improving. Initial lactic acid was 2.1 and now is 1.0. Etiology of sepsis includes UTI. Patient has a chronic Tomlinson catheter secondary to chronic urinary incontinence, urge incontinence that was removed in the emergency department. In the past patient has had MRSA bacteremia, MRSA and enterococcus UTI. Patient's leukocytosis worsened. He remains afebrile. At this point we will continue patient on vancomycin and Zosyn day 2 and await blood culture and urine culture sensitivities which are preliminarily negative. (2) Atrial fibrillation with RVR Current Visit: Yes Status: Acute Assessment and plan: On Cardizem drip at 5 mg an hour. Likely patient's A. fib RVR secondary to sepsis Currently his heart rate is controlled at 89. Will plan to wean down on Cardizem drip. Continue home dose of metoprolol succinate. Likely patient's A. fib RVR secondary to sepsis if unable to wean down will transition to PO cardizem (3) SUNI (acute kidney injury) Current Visit: Yes Status: Acute Assessment and plan: Secondary to sepsis. Baseline 1.1. Improving. Continue IV fluids. (4) Electrolyte imbalance Current Visit: Yes Status: Acute Assessment and plan: replacing K+, mag, and ordered stat ionized calcium as calcium level is low. (5) Diabetes mellitus Current Visit: Yes Status: Acute Assessment and plan: Patient has a history of diabetes mellitus type II. Last hemoglobin A1c was 7.8. controlled. at goal inpatient. He is currently on metformin and Januvia. Inpatient we will start a diabetic diet and sliding scale insulin. Qualifiers: Diabetes mellitus type: type 2 Diabetes mellitus [employer]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 insulin use: without [facility] use Diabetes mellitus complication status: with circulatory complication Qualified Code(s): E11.51 - Type 2 diabetes mellitus with diabetic peripheral angiopathy without gangrene (6) Hypertension Current Visit: Yes Status: Acute Assessment and plan: Patient has history of hypertension. Currently we are holding his hypertensive medications until his SUNI has resolved. Qualifiers: Hypertension type: essential hypertension Qualified Code(s): I10 - Essential (primary) hypertension (7) DVT prophylaxis Current Visit: Yes Status: Acute Assessment and plan: Heparin subcutaneous. (8) Esophageal cancer Current Visit: Yes Status: Acute Assessment and plan: Recently diagnosed with esophageal cancer with plan oon undergoing chemoradiation. Oncology notified that patient in hospital. Patient will have follow up appointment at discharge with oncology. Patient reports 40 pound weight loss in last 6 months. He reports no difficulty in swallowing. Qualifiers: Malignant neoplasm of esophagus location: lower third Qualified Code(s): C15.5 - Malignant neoplasm of lower third of esophagus (9) Protein-calorie malnutrition, moderate Current Visit: Yes Status: Chronic Assessment and plan: 40 pound weight loss nutrition on board ensure with lunch in setting of esophageal cancer. - Time Spent With Patient Total time spent is greater than 50% in coordination of care (as documented) at patient's floor/unit and/or counseling patient: - Subjective Interval history: Patient did not have any acute overnight events. He denies headache, cough, sputum production, shortness of breath, chest pain, abdominal pain. He continues to have urine incontinence. Patient follows urology for urinary incontinence and he is to have a chronic Tomlinson catheter which was removed due to getting multiple urinary tract infections. - Constitutional Vitals: Temp Pulse Resp BP Pulse Ox 97.8 F 87 16 111/65 95 03/31/18 06:59 03/31/18 06:59 03/31/18 05:00 03/31/18 06:59 03/31/18 06:59 - Other Additional findings: General: Pleasant without distress Heart: Irregularly irregular. Heart rate less than 100 Lungs: Clear to auscultation bilaterally Abdomen: Soft nontender, nondistended positive bowel sounds. Status post laparoscopic cholecystectomy. Incisions intact without erythema. Skin: Bilateral lower extremity discoloration on shins likely secondary to vascular insufficiency without erythema or discharge. Extremities: 1+ bilateral pedal edema Neuro: Alert oriented 3 Vascular: Pedal and radial pulses 2 out of 4 Internal Medicine: Result - Labs CBC & Chem 7: 03/31/18 06:05 03/31/18 06:05 Labs: Short CBC 03/31/18 Range/Units 06:05 WBC 19.4 H D (4.3-11.1) K/mcL Hgb 9.6 L (12.9-16.9) g/dL Hct 30.5 L (37.5-50.1) % Plt Count 407 H (140-400) K/mcL Neutrophils # 16.9 H (1.6-8.9) K/mcL BMP 03/31/18 06:05 Sodium 140 Potassium 3.2 L Chloride 100 Carbon Dioxide 30 H BUN 28 H Creatinine 1.48 H Glucose 152 H Calcium 5.9 L* Cardiac Enzymes 03/30/18 Range/Units 10:06 Troponin I 0.03 (< 0.04) ng/mL - ABG Interpretation ABG results: ABG ABG pH 7.50 pH Units (7.32-7.45) H 03/29/18 17:14 ABG pCO2 38 mmHg (35-45) 03/29/18 17:14 ABG pO2 92 mmHg (85-104) D 03/29/18 17:14 ABG O2 Saturation 98 % (95-98) 03/29/18 17:14 Consult Discharge Plan - Plan Referrals: Bulmaro Negro MD [Primary Care Provider] - <Jude Yi - Last Filed: 03/31/18 13:04> Date of Encounter: 03/31/18 - Assessment and plan (1) Atrial fibrillation with RVR Current Visit: Yes Status: Acute (2) Esophageal cancer Current Visit: Yes Status: Acute Qualifiers: Malignant neoplasm of esophagus location: lower third Qualified Code(s): C15.5 - Malignant neoplasm of lower third of esophagus (3) SUNI (acute kidney injury) Current Visit: Yes Status: Acute (4) Electrolyte imbalance Current Visit: Yes Status: Acute (5) Diabetes mellitus Current Visit: Yes Status: Acute Qualifiers: Diabetes mellitus type: type 2 Diabetes mellitus [facility]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 insulin use: without [facility] use Diabetes mellitus complication status: with circulatory complication Qualified Code(s): E11.51 - Type 2 diabetes mellitus with diabetic peripheral angiopathy without gangrene (6) Hypertension Current Visit: Yes Status: Acute Qualifiers: Hypertension type: essential hypertension Qualified Code(s): I10 - Essential (primary) hypertension (7) DVT prophylaxis Current Visit: Yes Status: Acute (8) Severe sepsis Current Visit: Yes Status: Acute (9) Protein-calorie malnutrition, moderate Current Visit: Yes Status: Chronic - Time Spent With Patient Total time spent is greater than 50% in coordination of care (as documented) at patient's floor/unit and/or counseling patient: - Constitutional Vitals: Temp Pulse Resp BP Pulse Ox 97.8 F 89 17 103/74 96 03/31/18 10:55 03/31/18 10:55 03/31/18 10:55 03/31/18 10:55 03/31/18 10:55 Internal Medicine: Result - Labs CBC & Chem 7: 03/31/18 06:05 03/31/18 06:05 Labs: Short CBC 03/31/18 Range/Units 06:05 WBC 19.4 H D (4.3-11.1) K/mcL Hgb 9.6 L (12.9-16.9) g/dL Hct 30.5 L (37.5-50.1) % Plt Count 407 H (140-400) K/mcL Neutrophils # 16.9 H (1.6-8.9) K/mcL BMP 03/31/18 06:05 Sodium 140 Potassium 3.2 L Chloride 100 Carbon Dioxide 30 H BUN 28 H Creatinine 1.48 H Glucose 152 H Calcium 5.9 L* Liver Function 03/31/18 Range/Units 06:05 Total Bilirubin 0.3 (0.3-1.0) mg/dL AST 14 (13-39) Units/L ALT 14 (7-52) Units/L Alkaline Phosphatase 64 (34-104) Units/L Albumin 2.7 L (3.5-5.7) g/dL - ABG Interpretation ABG results: ABG ABG pH 7.50 pH Units (7.32-7.45) H 03/29/18 17:14 ABG pCO2 38 mmHg (35-45) 03/29/18 17:14 ABG pO2 92 mmHg (85-104) D 03/29/18 17:14 ABG O2 Saturation 98 % (95-98) 03/29/18 17:14 - Attending Attestation examined this patient 03/31, and my medical decision-making was reviewed with the Resident Physician. I agree with the documented findings, disposition and treatment plan as described except to the extent set forth below. 72 M, seen and evaluated at the bedside with his spouse. 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 DVT has been ruled out by a Doppler of his LE He is seen and examined at the bedside, continues to deny shortness of breath or wheezing, no new complains He remains afebrile HIs calcium is low, potassium and mag low, leukocytosis is worsening cultures are negative preliminarily Physical exam: VSS, HR now controlled, BP WNL, AAOX3, no gross neurologic deficits, chest is CTAB, with no wheezing, or rhonchi, abdomen is soft and not tender LE with venostasis changes Labs and Imaging reviewed, as abov e A/P Presumed Severe Sepsis ? source, SUNI, Hx of CHFpEF, Hx of COPD (not in exacerbation at this time), hypomagnessemia, hypokalemia, Discontinue cardizem continue antibiotics High risk due to diagnosis of presumed sepsis , use of Vanco which needs close monitoring as well as SUNI. Avoid nephrotoxins Discontinue IVF Check ionized calcium and LFTs Follow all cultures Continue current antibiotics monitor vanco trough Rest of details as in the resident physician's documentation
[2018-03-31] MEDS: Piperacillin/Tazobactam 3.375 GM in 0.9 % Sodium Chloride Mini Bag 100 ML IVPB SCH ×3 (10:26→23:36)
[2018-03-31] MEDS: Metoprolol XL (24 HR) Succ 50 MG TAB.ER.24H PO SCH (10:31)
[2018-03-31] MEDS: Insulin LISPRO 300 UNITS/3 ML VIAL SQ SCH ×4 (10:35→21:29)
[2018-03-31 12:51] LABS: Albumin 2.7 g/dL (3.5-5.7); Bilirubin,Total 0.3 mg/dL (0.3-1.0); Globulin 2.8 g/dL (2.4-3.5); Total Protein 5.5 g/dL (6.4-8.9)
[2018-03-31 14:05] LABS: Bilirubin,Direct 0.1 mg/dL (0.0-0.2); Bilirubin,Indirect 0.2 mg/dL (0.0-1.2)
[2018-03-31 17:17] LABS: VBG Ionized Calcium 0.82 mmol/L (1.15-1.35)
[2018-04-01] MEDS: *HR* Heparin 5,000 UNIT/ML VIAL SQ SCH ×3 (05:45→22:01)
[2018-04-01 06:13] LABS: Basophils % 0.2 %; Eosinophils # 0.1 K/mcL (0.0-0.6); Eosinophils % 0.9 %; Hemoglobin 10.4 g/dL (12.9-16.9); Immature Granulocytes % 1.2 % (0-4); Immature Platelets 2.1 % (1.1-6.1); Lymphocytes # 1.2 K/mcL (0.6-4.6); Lymphocytes % 7.6 %; Mean Corpuscular HGB Conc 31.5 g/dL (31.6-35.5); Mean Corpuscular Hemoglobin 27.7 pg (28.0-33.3); Mean Platelet Volume 10.6 fL (9.4-12.4); Monocytes # 1.3 K/mcL (0.0-1.3); Monocytes % 8.8 %; Neutrophils # 12.3 K/mcL (1.6-8.9); Nucleated Red Blood Cells 0.2 /100 WBC (0); Platelet Count 385 K/mcL (140-400); Red Blood Count 3.75 M/mcL (4.19-5.50); Segmented Neutrophils % 81.3 %
[2018-04-01 06:15] LABS: Alanine Aminotransferase 13 Units/L (7-52); Albumin 2.6 g/dL (3.5-5.7); Alkaline Phosphatase 58 Units/L (34-104); Aspartate Amino Transferase 13 Units/L (13-39); BUN/Creatinine Ratio 18 (6-26); Bilirubin,Total 0.4 mg/dL (0.3-1.0); Blood Urea Nitrogen 22 mg/dL (8-23); Calcium 6.2 mg/dL (8.6-10.3); Carbon Dioxide 29 mEq/L (23-29); Chloride 102 mEq/L (98-107); Globulin 2.7 g/dL (2.4-3.5); Glucose 130 mg/dL (70-105); Osmolality,Calculated 297 (280-300); Potassium 3.4 mEq/L (3.5-5.1); Sodium 141 mEq/L (136-145); Total Protein 5.3 g/dL (6.4-8.9); eGFR For African Americans > 60 (> 60); eGFR For Non-African Americans 58 (> 60)
[2018-04-01] MEDS ORDERED: Potassium Chloride Elixir 20 MEQ/15 ML UDC PO ONE (08:06)
[2018-04-01] MEDS ORDERED: Aminoglycoside Consult 1 EACH MC ONE (08:12)
--- NOTE | 2018-04-01 08:21 | Internal Med Progress Note ---
<Vipin Claire - Last Filed: 04/01/18 14:54> Date of Encounter: 04/01/18 Time of Encounter: 08:19 - Assessment and plan (1) Atrial fibrillation with RVR Current Visit: Yes Status: Acute Assessment and plan: Patient found to be in afib with rvr on arrival. Cardizem drip discontinued. Heart rate overnight between 100-110 and irregular. Continue with metoprolol Succinate and will start low dose cardizem q8h Patient unable to have anticoagulation due to history of gi bleed, most recent about 2 months ago, previously on Xarelto. (2) Severe sepsis Current Visit: Yes Status: Ruled-out Assessment and plan: Patient admitted with elevated WBC, tachycardia, and SUNI and initial lactic acid 2.1 with resolution after fluids. Possible sepsis, but Urine culture negative and blood cultures at this time preliminary negative. Previous history of MRSA bacteremia. Patient is afebrile. WBC 15.2, down from 19.4 yesterday. At this time, patient does not appear to be septic. Will discontinue Vancomycin d3 and Zosyn d3 and continue following blood cultures. (3) Esophageal cancer Current Visit: Yes Status: Acute Assessment and plan: Recent diagnosis of esophageal cancer and plan to undergo Chemoradiation but has not started therapy. Plan to follow up with Oncology on discharge. Has had some weight loss of about 40 Lbs over last 6 months. 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 Cr 1.24, improved from 1.48 yesterday. Baseline 1.1 Continue encourage oral fluids (5) Electrolyte imbalance Current Visit: Yes Status: Acute Assessment and plan: Magnesium and Potassium low Replace as needed. Potassium at 3.4 this morning, Magnesium 1.6 this morning. (6) Diabetes mellitus Current Visit: Yes Status: Chronic Assessment and plan: History of type II diabetes with A1C 7.8 Continue with diabetic diet and sliding scale insulin. Blood sugars well controlled during hospital stay. Qualifiers: Diabetes mellitus type: type 2 Diabetes mellitus terminal makeup operator insulin use: without half-way use Diabetes mellitus complication status: with circulatory complication Qualified Code(s): E11.59 - Type 2 diabetes mellitus with other circulatory complications (7) Hypertension Current Visit: Yes Status: Chronic Assessment and plan: Known history of hypertension. Bp 114-120/80-90. Continue holding hypertensive medications till SUNI resolved. Will start low dose cardizem for afib-rvr. Qualifiers: Hypertension type: essential hypertension Qualified Code(s): I10 - Essential (primary) hypertension (8) Protein-calorie malnutrition, moderate Current Visit: Yes Status: Chronic Assessment and plan: 40 pound weight loss over past 6 months without known difficulties with feeding Nutrition consulted, Ensure supplement (9) DVT prophylaxis Current Visit: Yes Status: Acute Assessment and plan: Heparin subcutaneous. (10) Intermittent confusion Current Visit: Yes Status: Acute Assessment and plan: Patient's reports progressive confusion for past couple months and is still currently confused. Patient AxO x 4, but nurse notes some unusual behaviors particularly when getting frustrated. Patient previously on Xarelto, but was discontinued due to gi bleed. Has afib and unable to anticoagulate due to recent gi bleed. Patient also has known recent diagnosis of esophageal cancer. Consideration into possible multi infarct vs vascular dementia vs possible metastatic disease. Ordered MRI Head/Brain without contrast. - Time Spent With Patient Total time spent is greater than 50% in coordination of care (as documented) at patient's floor/unit and/or counseling patient: - Subjective Interval history: Patient reports doing well, sons x 2 at bedside. at bedside says patient has had progreessive confusion for the past couple months reported as "stepwise. " At this time continues to be confused per , but not worsened from yesterday. Patient's heart rate overnight 100-110, cardizem drip off. Patient satting at 98% on 2 L nasal cannula, not on oxygen at home. Patient denies feves, chills, sweats, nausea, vomiting, headaches, changes in vision, chest pain, shortness of breath, abdominal pain, changes in bowels or bladder, new weakness, or loss of sensation. - Constitutional Vitals: Temp Pulse Resp BP Pulse Ox 98.1 F 100 17 119/85 98 04/01/18 06:57 04/01/18 06:57 04/01/18 06:57 04/01/18 06:57 04/01/18 06:57 General appearance: Present: A&O X 3, no acute distress, obese, answers questions appropriately - Head Head exam: Present: atraumatic, normal inspection, normocephalic - Eye Eye exam: Present: EOMI, normal appearance (exotropia), PERRL - ENT ENT exam: Present: mucous membranes moist, normal exam, normal oropharynx - Neck Neck exam general surgery: Present: full ROM, normal inspection, supple, trachea midline - Respiratory Respiratory exam: Present: CTAB. Absent: rales, respiratory distress, rhonchi, wheezes Additional comments: on 2L oxygen - Cardiovascular Cardiovascular exam: Present: irregular rhythm, +S1, +S2 - GI/Abdominal GI/Abdominal exam: Present: normal bowel sounds, soft. Absent: tenderness - Extremities Exam Extremities exam: Present: pedal edema (1+ nonpitting, stasis dermatitis changes without ulcers bilateral lower extremities, hammer toes bilaterally), warm, radial pulses palpable and symmetrical. Absent: tenderness - Back Exam Back exam: Present: normal inspection - Skin Skin exam: Present: abrasion (right posterior calf with 1cm abrasion without surrounding erythema or drainage), dry, intact, warm Internal Medicine: Result - Labs CBC & Chem 7: 04/01/18 04:10 04/01/18 04:10 Labs: Short CBC 04/01/18 Range/Units 04:10 WBC 15.2 H (4.3-11.1) K/mcL Hgb 10.4 L (12.9-16.9) g/dL Hct 33.0 L (37.5-50.1) % Plt Count 385 (140-400) K/mcL Neutrophils # 12.3 H (1.6-8.9) K/mcL BMP 03/31/18 04/01/18 06:05 04:10 Sodium 140 141 Potassium 3.2 L 3.4 L Chloride 100 102 Carbon Dioxide 30 H 29 BUN 28 H 22 Creatinine 1.48 H 1.24 Glucose 152 H 130 H Calcium 5.9 L* 6.2 L Liver Function 03/31/18 04/01/18 Range/Units 06:05 04:10 Total Bilirubin 0.3 0.4 (0.3-1.0) mg/dL Direct Bilirubin 0.1 (0.0-0.2) mg/dL AST 14 13 (13-39) Units/L ALT 14 13 (7-52) Units/L Alkaline Phosphatase 64 58 (34-104) Units/L Albumin 2.7 L 2.6 L (3.5-5.7) g/dL - ABG Interpretation ABG results: ABG ABG pH 7.50 pH Units (7.32-7.45) H 03/29/18 17:14 ABG pCO2 38 mmHg (35-45) 03/29/18 17:14 ABG pO2 92 mmHg (85-104) D 03/29/18 17:14 ABG O2 Saturation 98 % (95-98) 03/29/18 17:14 - Impressions Impressions Abdomen/Pelvis CT 03/31/18 15:00 IMPRESSION: No evidence of acute inflammatory process in the chest, abdomen, or pelvis. Moderate hiatal hernia is unchanged. Known primary esophageal malignancy is not well assessed on the basis of this noncontrast examination. Azygoesophageal recess lymph node has mildly decreased in size since the prior examination. No evidence of metastatic disease in the abdomen or pelvis. D/ / 03/31/2018 17:47:14 Carolin Spear MD / roberto Interpreting Provider: Carolin Spear MD Chest CT 03/31/18 15:00 IMPRESSION: No evidence of acute inflammatory process in the chest, abdomen, or pelvis. Moderate hiatal hernia is unchanged. Known primary esophageal malignancy is not well assessed on the basis of this noncontrast examination. Azygoesophageal recess lymph node has mildly decreased in size since the prior examination. No evidence of metastatic disease in the abdomen or pelvis. 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 (3) SUNI (acute kidney injury) Current Visit: Yes Status: Acute (4) Electrolyte imbalance Current Visit: Yes Status: Acute (5) Diabetes mellitus Current Visit: Yes Status: Chronic Qualifiers: Diabetes mellitus type: type 2 Diabetes mellitus terminal makeup operator insulin use: without terminal makeup operator use Diabetes mellitus complication status: with circulatory complication Qualified Code(s): E11.59 - Type 2 diabetes mellitus with other circulatory complications (6) Hypertension Current Visit: Yes Status: Chronic Qualifiers: Hypertension type: essential hypertension Qualified Code(s): I10 - Essential (primary) hypertension (7) DVT prophylaxis Current Visit: Yes Status: Acute (8) Severe sepsis Current Visit: Yes Status: Ruled-out (9) Protein-calorie malnutrition, moderate Current Visit: Yes Status: Chronic (10) Intermittent confusion Current Visit: Yes Status: Acute - Time Spent With Patient Total time spent is greater than 50% in coordination of care (as documented) at patient's floor/unit and/or counseling patient: - Constitutional Vitals: Temp Pulse Resp BP Pulse Ox 98.2 F 95 17 137/97 98 04/01/18 16:00 04/01/18 16:00 04/01/18 16:00 04/01/18 16:00 04/01/18 16:00 Internal Medicine: Result - Labs CBC & Chem 7: 04/01/18 04:10 04/01/18 04:10 Labs: Short CBC 04/01/18 Range/Units 04:10 WBC 15.2 H (4.3-11.1) K/mcL Hgb 10.4 L (12.9-16.9) g/dL Hct 33.0 L (37.5-50.1) % Plt Count 385 (140-400) K/mcL Neutrophils # 12.3 H (1.6-8.9) K/mcL BMP 04/01/18 04:10 Sodium 141 Potassium 3.4 L Chloride 102 Carbon Dioxide 29 BUN 22 Creatinine 1.24 Glucose 130 H Calcium 6.2 L Liver Function 04/01/18 Range/Units 04:10 Total Bilirubin 0.4 (0.3-1.0) mg/dL AST 13 (13-39) Units/L ALT 13 (7-52) Units/L Alkaline Phosphatase 58 (34-104) Units/L Albumin 2.6 L (3.5-5.7) g/dL - ABG Interpretation ABG results: ABG ABG pH 7.50 pH Units (7.32-7.45) H 03/29/18 17:14 ABG pCO2 38 mmHg (35-45) 03/29/18 17:14 ABG pO2 92 mmHg (85-104) D 03/29/18 17:14 ABG O2 Saturation 98 % (95-98) 03/29/18 17:14 - Impressions Impressions Abdomen/Pelvis CT 03/31/18 15:00 IMPRESSION: No evidence of acute inflammatory process in the chest, abdomen, or pelvis. Moderate hiatal hernia is unchanged. Known primary esophageal malignancy is not well assessed on the basis of this noncontrast examination. Azygoesophageal recess lymph node has mildly decreased in size since the prior examination. No evidence of metastatic disease in the abdomen or pelvis. D/ / 03/31/2018 17:47:14 Carolin Spear MD / roberto Interpreting Provider: Carolin Spear MD Chest CT 03/31/18 15:00 IMPRESSION: No evidence of acute inflammatory process in the chest, abdomen, or pelvis. Moderate hiatal hernia is unchanged. Known primary esophageal malignancy is not well assessed on the basis of this noncontrast examination. Azygoesophageal recess lymph node has mildly decreased in size since the prior examination. No evidence of metastatic disease in the abdomen or pelvis. D/ / 03/31/2018 17:47:14 Carolin Spear MD / roberto Interpreting Provider: Carolin Spear MD - Attending Attestation I examined this patient and my medical decision-making was reviewed with the Resident Physician on 04/01/18. I agree with the documented findings, disposition and treatment plan as described except to the extent set forth below.
[2018-04-01] MEDS: Insulin LISPRO 300 UNITS/3 ML VIAL SQ SCH ×4 (10:15→21:56)
[2018-04-01] MEDS: Piperacillin/Tazobactam 3.375 GM in 0.9 % Sodium Chloride Mini Bag 100 ML IVPB SCH (10:16)
[2018-04-01] MEDS: Metoprolol XL (24 HR) Succ 50 MG TAB.ER.24H PO SCH (10:17)
[2018-04-01 10:30] LABS: POC eGFR > 60 (> 60)
[2018-04-01] MEDS ORDERED: Haloperidol Lactate 5 MG/ML VIAL IVP ONE (14:16)
[2018-04-02 05:52] LABS: Basophils % 0.3 %; Eosinophils # 0.2 K/mcL (0.0-0.6); Eosinophils % 1.1 %; Hematocrit 32.9 % (37.5-50.1); Immature Granulocytes % 0.7 % (0-4); Lymphocytes # 1.5 K/mcL (0.6-4.6); Lymphocytes % 10.8 %; Mean Corpuscular HGB Conc 30.4 g/dL (31.6-35.5); Mean Corpuscular Hemoglobin 26.5 pg (28.0-33.3); Mean Corpuscular Volume 87.3 fL (83.0-100.0); Monocytes # 1.2 K/mcL (0.0-1.3); Monocytes % 8.4 %; Platelet Count 325 K/mcL (140-400); Red Blood Count 3.77 M/mcL (4.19-5.50); Segmented Neutrophils % 78.7 %
[2018-04-02 06:11] LABS: BUN/Creatinine Ratio 14 (6-26); Blood Urea Nitrogen 16 mg/dL (8-23); Carbon Dioxide 34 mEq/L (23-29); Chloride 106 mEq/L (98-107); Glucose 149 mg/dL (70-105); Magnesium 1.3 mg/dL (1.6-2.6); Osmolality,Calculated 296 (280-300); Potassium 3.9 mEq/L (3.5-5.1); Sodium 141 mEq/L (136-145); eGFR For African Americans > 60 (> 60); eGFR For Non-African Americans > 60 (> 60)
[2018-04-02] MEDS: *HR* Heparin 5,000 UNIT/ML VIAL SQ SCH ×3 (06:25→22:12)
[2018-04-02] MEDS: Metoprolol XL (24 HR) Succ 50 MG TAB.ER.24H PO SCH (08:07)
[2018-04-02] MEDS: Insulin LISPRO 300 UNITS/3 ML VIAL SQ SCH ×4 (08:10→22:13)
--- NOTE | 2018-04-02 09:53 | Internal Med Progress Note ---
<Vipin Claire - Last Filed: 04/02/18 14:07> Date of Encounter: 04/02/18 Time of Encounter: 09:50 - Assessment and plan (1) Atrial fibrillation with RVR Current Visit: Yes Status: Acute Assessment and plan: Patient found to be in afib with rvr on arrival. Cardizem drip discontinued. HR controlled overnight on Metoprolol succinate and Cardizem oral. Consider switch to Cardizem extended release. Start cardizem CD 120mg. Patient unable to have anticoagulation due to history of gi bleed, most recent about 2 months ago, previously on Xarelto. (2) Electrolyte imbalance Current Visit: Yes Status: Acute Assessment and plan: Magnesium and Potassium low Replace as needed. Potassium at 3.9 this morning, Magnesium 1.3 this morning. (3) Severe sepsis Current Visit: Yes Status: Ruled-out Assessment and plan: Patient admitted with elevated WBC, tachycardia, and SUNI and initial lactic acid 2.1 with resolution after fluids. Possible sepsis, but Urine culture negative and blood cultures at this time preliminary negative. Previous history of MRSA bacteremia. Patient is afebrile. WBC 14.0, down from 15.2 yesterday. At this time, patient does not appear to be septic. Will discontinue Vancomycin d3 and Zosyn d3 and continue following blood cultures. (4) Esophageal cancer Current Visit: Yes Status: Acute Assessment and plan: Recent diagnosis of esophageal cancer and plan to undergo Chemoradiation but has not started therapy. Plan to follow up with Oncology on discharge. Has had some weight loss of about 40 Lbs over last 6 months. 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 Secondary to possible afib rvr vs sepsis. Cr 1.14, improved from 1.24. Baseline 1.1 Continue encourage oral fluids (6) Diabetes mellitus Current Visit: Yes Status: Chronic Assessment and plan: History of type II diabetes with A1C 7.8 Continue with diabetic diet and sliding scale insulin. Blood sugars well controlled during hospital stay. Qualifiers: Diabetes mellitus type: type 2 Diabetes mellitus detention insulin use: without ferry terminal agent use Diabetes mellitus complication status: with circulatory complication Qualified Code(s): E11.59 - Type 2 diabetes mellitus with other circulatory complications (7) Hypertension Current Visit: Yes Status: Chronic Assessment and plan: Known history of hypertension. Bp 108-133/87-96 Continue holding hypertensive medications as bp stable and controlled, also on cardizem for afib. Qualifiers: Hypertension type: essential hypertension Qualified Code(s): I10 - Essential (primary) hypertension (8) Protein-calorie malnutrition, moderate Current Visit: Yes Status: Chronic Assessment and plan: 40 pound weight loss over past 6 months without known difficulties with feeding Nutrition consulted, Ensure supplement PT/OT ordered, will need home needs at discharge. Recommends Swing Bed on discharge (9) DVT prophylaxis Current Visit: Yes Status: Acute Assessment and plan: Heparin subcutaneous. (10) Intermittent confusion Current Visit: Yes Status: Acute Assessment and plan: Patient's reports progressive confusion for past couple months and is still currently confused. Patient AxO x 2 Patient previously on Xarelto, but was discontinued due to gi bleed. Has afib and unable to anticoagulate due to recent gi bleed. Patient also has known recent diagnosis of esophageal cancer. Consideration into possible multi infarct vs vascular dementia vs possible metastatic disease; however, MRI completed revealed no acute intracranial abnormality, no metastatic disease, and diffuse parenchymal loss. Confusional state may be more related to hospitalization; however Lewy Body dementia is considered. May consider EEG, but seizure-like episode overnight does not sound by history like true seizure and may have just been baseline tremors with confusion. -Consult Neurology -EEG - Time Spent With Patient Total time spent is greater than 50% in coordination of care (as documented) at patient's floor/unit and/or counseling patient: - Subjective Interval history: Patient reports doing well without complaints. Alert to person, place, not to situation or time. and family at bedside continue to report increased confusion than normal, but now worse overnight. Patient heart controlled. MRI for confusion revealed diffuse parenchymal loss, no actue changes or intracranial process or mets. Patient satting well on room air. Patient denies fevers, chills, sweat, nausea, vomiting, shortness of breath, abdominal pain, changes in bowels or bladder, or new weakness. - Constitutional Vitals: Temp Pulse Resp BP Pulse Ox 98.2 F 84 19 108/87 98 04/02/18 06:42 04/02/18 06:42 04/02/18 06:42 04/02/18 06:42 04/02/18 06:42 General appearance: Present: A&O X 2 (to person and place, not to time or situation), no acute distress, obese, answers questions appropriately - Head Head exam: Present: atraumatic, normal inspection, normocephalic - Eye Eye exam: Present: EOMI, normal appearance, PERRL Additional comments: exotropia on right - ENT ENT exam: Present: mucous membranes moist, normal exam - Neck Neck exam general surgery: Present: full ROM, normal inspection, supple, trachea midline. Absent: lymphadenopathy - Respiratory Respiratory exam: Present: CTAB. Absent: rales, respiratory distress, rhonchi, wheezes - Cardiovascular Cardiovascular exam: Present: irregular rhythm, +S1, +S2 - GI/Abdominal GI/Abdominal exam: Present: normal bowel sounds, soft. Absent: tenderness - Extremities Exam Extremities exam: Present: full ROM, normal inspection, pedal edema (1+ nonpitting, stasis dermatitis changes without ulcers bilateral lower extremities , hammer toes bilaterally), warm, radial pulses palpable and symmetrical Additional comments: tremors of upper extremities and left lower extremity - Skin Skin exam: Present: abrasion (right posterior calf with 1cm abrasion without surrounding erythema or drainage), dry, intact, warm Internal Medicine: Result - Labs CBC & Chem 7: 04/02/18 05:29 04/02/18 05:29 Labs: Short CBC 04/02/18 Range/Units 05:29 WBC 14.0 H (4.3-11.1) K/mcL Hgb 10.0 L (12.9-16.9) g/dL Hct 32.9 L (37.5-50.1) % Plt Count 325 (140-400) K/mcL Neutrophils # 11.0 H (1.6-8.9) K/mcL BMP 04/02/18 05:29 Sodium 141 Potassium 3.9 Chloride 106 Carbon Dioxide 34 H BUN 16 Creatinine 1.14 Glucose 149 H Calcium 7.0 L - ABG Interpretation ABG results: ABG ABG pH 7.50 pH Units (7.32-7.45) H 03/29/18 17:14 ABG pCO2 38 mmHg (35-45) 03/29/18 17:14 ABG pO2 92 mmHg (85-104) D 03/29/18 17:14 ABG O2 Saturation 98 % (95-98) 03/29/18 17:14 - Impressions Impressions Brain MRI 04/01/18 09:26 IMPRESSION: 1. No acute intracranial abnormality. 2. No evidence of intracranial metastatic disease. 3. Diffuse parenchymal volume loss. 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 (3) SUNI (acute kidney injury) Current Visit: Yes Status: Resolved (4) Electrolyte imbalance Current Visit: Yes Status: Acute (5) Diabetes mellitus Current Visit: Yes Status: Chronic Qualifiers: Diabetes mellitus type: type 2 Diabetes mellitus detention insulin use: without ferry terminal agent use Diabetes mellitus complication status: with circulatory complication Qualified Code(s): E11.59 - Type 2 diabetes mellitus with other circulatory complications (6) Hypertension Current Visit: Yes Status: Chronic Qualifiers: Hypertension type: essential hypertension Qualified Code(s): I10 - Essential (primary) hypertension (7) DVT prophylaxis Current Visit: Yes Status: Acute (8) Severe sepsis Current Visit: Yes Status: Ruled-out (9) Protein-calorie malnutrition, moderate Current Visit: Yes Status: Chronic (10) Intermittent confusion Current Visit: Yes Status: Acute - Time Spent With Patient Total time spent is greater than 50% in coordination of care (as documented) at patient's floor/unit and/or counseling patient: - Constitutional Vitals: Temp Pulse Resp BP Pulse Ox 98.8 F 102 20 125/96 94 04/02/18 10:42 04/02/18 10:42 04/02/18 10:42 04/02/18 10:42 04/02/18 10:42 Internal Medicine: Result - Labs CBC & Chem 7: 04/02/18 05:29 04/02/18 05:29 Labs: Short CBC 04/02/18 Range/Units 05:29 WBC 14.0 H (4.3-11.1) K/mcL Hgb 10.0 L (12.9-16.9) g/dL Hct 32.9 L (37.5-50.1) % Plt Count 325 (140-400) K/mcL Neutrophils # 11.0 H (1.6-8.9) K/mcL BMP 04/02/18 05:29 Sodium 141 Potassium 3.9 Chloride 106 Carbon Dioxide 34 H BUN 16 Creatinine 1.14 Glucose 149 H Calcium 7.0 L - ABG Interpretation ABG results: ABG ABG pH 7.50 pH Units (7.32-7.45) H 03/29/18 17:14 ABG pCO2 38 mmHg (35-45) 03/29/18 17:14 ABG pO2 92 mmHg (85-104) D 03/29/18 17:14 ABG O2 Saturation 98 % (95-98) 03/29/18 17:14 - Impressions Impressions Abdomen/Pelvis CT 03/31/18 15:00 IMPRESSION: No evidence of acute inflammatory process in the chest, abdomen, or pelvis. Moderate hiatal hernia is unchanged. Known primary esophageal malignancy is not well assessed on the basis of this noncontrast examination. Azygoesophageal recess lymph node has mildly decreased in size since the prior examination. No evidence of metastatic disease in the abdomen or pelvis. D/ / 03/31/2018 17:47:14 Carolin Spear MD / [facility] Interpreting Provider: Carolin Spear MD Chest CT 03/31/18 15:00 IMPRESSION: No evidence of acute inflammatory process in the chest, abdomen, or pelvis. Moderate hiatal hernia is unchanged. Known primary esophageal malignancy is not well assessed on the basis of this noncontrast examination. Azygoesophageal recess lymph node has mildly decreased in size since the prior examination. No evidence of metastatic disease in the abdomen or pelvis. D/ / 03/31/2018 17:47:14 Carolin Spear MD / roberto Interpreting Provider: Carolin Spear MD Brain MRI 04/01/18 09:26 IMPRESSION: 1. No acute intracranial abnormality. 2. No evidence of intracranial metastatic disease. 3. Diffuse parenchymal volume loss. D/ / Armando Álvarez / Armando Álvarez Interpreting Provider: Armando Álvarez - Attending Attestation I examined this patient and my medical decision-making was reviewed with the Resident Physician on 04/02/18. I agree with the documented findings, disposition and treatment plan as described except to the extent set forth below. Seen and examined with spouse at the bedise. Admitted for Afib with RVR ( Not on anticoagulation due to prior GIB), Presumed sepsis (all cultures and imaging negative antibiotics discontinued 04/01), He has a PMH of Esophageal CA, Chronic venous stasis, HTN, DM< COPD, recurrent UTIS. He has been having intention tremors,as well as episodes of waxing and waning mental status possibly due to delirium. Brain MRI was unremarkable. This a.m, states patient is confused again and hallucinating. He is AAOX2 at time of eval, moves all extremities intermittently. CBC shows improved WBC, Hb stable, Chem with low Mag. Calcium is improving. Plan for today is to consult neurology for his neurological symptoms obtain EEG, continue current care, replace electroltes. Discharge dispo is to SNF/Swing bed when medically ready. HR is controlled on current meds, sepsis has been ruled out. Rest of details as in the resident physician's documentation
[2018-04-02] MEDS: Diltiazem CD (24hr) 120 MG CAPSULE PO SCH (12:40)
[2018-04-02 14:25] LABS: VBG Ionized Calcium 0.98 mmol/L (1.15-1.35)
[2018-04-02] MEDS ORDERED: Calcium Chloride 1,000 MG in 0.9 % Sodium Chloride 100 ML IVPB ONE (15:18)
--- NOTE | 2018-04-02 15:34 | EEG/EMG/Oth Biometrics Report ---
EEG Procedure Report Date of procedure: 04/02/18 EEG Procedure: Routine EEG Procedure Note: Report of a 21 channel bipolar and referential montage EEG. The posterior dominant rhythm consisted of moderate to low voltage theta frequency ranging 6- 7 Hz. This rhythm is not reactive to eye opening. Occasional intermixed myogenic artifact is identified however does not preclude accurate interpretation of the study. Hyperventilation is not performed in recording. Periods of drowsiness and stage II sleep identified as reference by dropout of posterior dominant rhythm and emergence of vertex activity K complexes and sleep spindles. Photic stimulation was not performed in recording. The EKG rhythm strip reveals normal sinus rhythm at 72 bpm. Impressions: This EEG recording is abnormal consistent with a mild generalized encephalopathy. There is no evidence of epileptiform activity identified during the study. Comment: Etiologies of this interpretation might include toxic, metabolic, postictal, and degenerative. Please correlate clinically.
--- NOTE | 2018-04-02 15:38 | Neurology - Consult Note ---
Date of Encounter: 04/02/18 Time of Encounter: 15:35 Assessment and Plan (1) Acute delirium Current Visit: Yes Status: Acute At this time I am more inclined to think that his acute mental status change is likely due to delirium perhaps sundowning. I do also believe that he has a baseline dementia. He has a significant element of cortical atrophy present on the MRI scan. Since he does seem to have cogwheeling certainly parkinsonism is a concern, however it is very difficult to confirm her diagnosis of Parkinson's during a hospitalization where the individual simply laying in bed and not moving much. I am not convinced of a pure central nervous system etiology for the mental status change. I am doubtful of a central nervous system infectious process as he denies headache and has no nuchal rigidity. Certainly medications are always the potential cause. Many of the medications that are used for various gastrointestinal diseases can result in confusion. Oxybutynin also with its anticholinergic effects can result in confusion. Again sundowning may also be contributing. At this point I am not suspicious of herpes encephalitis. The EEG was negative for evidence of seizure activity. Even though he does appear to be parkinsonian I would hesitate to make a diagnosis of Lewy body dementia in the face of acute confusion and hallucinations during an acute hospital admission. Lab testing to consider; serum ammonia levels, TSH, vitamin B12, methylmalonic acid, RPR, serum lactate was negative. Chest x-ray, urinalysis. I will reevaluate him tomorrow. History of Present Illness HPI: Mr. Jimenez is a 72 year old male who has a host of chronic illnesses including diabetes mellitus, venous stasis, esophageal cancer, morbid obesity. He is being seen for neurologic evaluation secondary to confusion with associated tremors. He is not able to provide his own history and his is at the bedside and provides pertinent details. He first began to notice problems with his cognition at least 3 years or so ago. He also tremors from time to time. However just prior to his admission he began having hallucinations and has continued to hallucinate during his hospital stay. His states that he does not drink nor does he take benzodiazepines at home. He has not had any recent changes in his medications. MRI scan of the brain has been completed and does not reveal any evidence of acute artifact. At the time he seems to wax and wane with regard to his level of consciousness and attention. This has the appearance of an acute delirium. I did read an EEG today which shows mild generalized encephalopathy. He denies headache. There is no nuchal rigidity. Past Med Surg Social Fam HX - Past Medical History Medical history: atrial fibrillation, cancer, CHF, COPD, diabetes, GERD, hyperlipidemia, hypertension, malignancy, venous stasis Psychiatric history: anxiety - Past Surgical History Surgical History: appendectomy, cholecystectomy, herniorrhaphy, knee replacement - Social History Smoking Status: Never smoker Smokeless Tobacco Status: No Alcohol use: none Drug use: none - Family History Mother Living Status: Hx Family Cardiac Disorders: Yes (HTN) Father Living Status: Hx Family Cardiac Disorders: Yes (CHF, HTN) Hx Family Respiratory Disorders: No Hx Family Cancer: No Hx Family Endocrine Disorder: No Medications and Allergies Furosemide [Lasix] 20 mg PO BID 03/29/18 [History] Lisinopril [Zestril] 40 mg PO DAILY 03/29/18 [History] Metformin HCl [Metformin HCl ER] 1,000 mg PO BID 03/29/18 [History] Metoprolol Succinate [Toprol Xl] 100 mg PO DAILY 03/29/18 [History] Omeprazole [PriLOSEC] 40 mg PO DAILY 03/29/18 [History] Oxybutynin Chloride [Ditropan Xl] 15 mg PO DAILY 03/29/18 [History] Pantoprazole Sodium [Protonix] 40 mg PO DAILY 03/29/18 [History] SitaGLIPtin [Januvia] 100 mg PO DAILY 03/29/18 [History] Tramadol HCl [Ultram] 50 mg PO TID PRN 03/29/18 [History] 3 Allergy/AdvReac Type Severity Reaction Status Date / Time No Known Allergies Allergy Verified 03/29/18 18:46 All Systems: The remainder of the systems were reviewed and are negative Review of Systems: The balance of the systems review is negative. Physical Examination - Vital Signs Vital Signs: Initial Vital Signs Temp Pulse Resp BP Pulse Ox 98.2 F 100 18 95/62 94 03/29/18 14:46 03/29/18 14:46 03/29/18 14:46 03/29/18 14:46 03/29/18 14:46 - Exam Exam: Mental status finds-patient is awake however he is inattentive as long as he is stimulated. Otherwise he tends to drift off. He makes eye contact however he does not state his 's name correctly. He does hallucinate from time to time. His speech seems pressured with loose association. At times it is unintelligible. He follows some simple commands however others he follows incorrectly. He does have motor impersistence. He is unable to provide his own medical history. Cranial nerves-pupils are equal and reactive. Extraocular motility is erratic and difficult to assess. Corneal reflexes are brisk bilaterally there is no facial asymmetry. Speech however is dysarthric. Hearing appears to be intact. Tongue is midline. Cerebellar exam-there appears to be some disconjugate gaze. There is no nystagmus. Motor exam finds cogwheeling of both upper extremities. He seems to have some rigidity of the lower extremities as well. He is able to raise both arms off the bed commands however he is reluctant to move his legs. I did not identify any resting tremors or intention tremors. He does have venous stasis of both lower extremities. He is very muscular however. There are no involuntary movements identified. Sensory exam-he does seem to have decreased sensation distally. However the sensory examination is often unreliable and confused patient. Deep tendon reflexes are diminished throughout. No Babinski or long tract signs are present. Results - Laboratory Findings CBC and BMP: 04/02/18 05:29 04/02/18 05:29 Abnormal lab findings: Abnormal lab results WBC 14.0 K/mcL (4.3-11.1) H 04/02/18 05:29 RBC 3.77 M/mcL (4.19-5.50) L 04/02/18 05:29 Hgb 10.0 g/dL (12.9-16.9) L 04/02/18 05:29 Hct 32.9 % (37.5-50.1) L 04/02/18 05:29 MCH 26.5 pg (28.0-33.3) L 04/02/18 05: MCHC 30.4 g/dL (31.6-35.5) L 04/02/18 05:29 RDW 15.0 % (11.5-14.5) H 04/02/18 05:29 Neutrophils # 11.0 K/mcL (1.6-8.9) H 04/02/18 05:29 Nucleated RBCs/100 WBC 0.2 /100 WBC (0) H 04/01/18 04:10 ABG pH 7.50 pH Units (7.32-7.45) H 03/29/18 17:14 ABG HCO3 29 mEq/L (21-27) H 03/29/18 17:14 ABG Total CO2 31 mEq/L (20-26) H 03/29/18 17:14 ABG Base Excess 6 mEq/L (-2 to 3) H 03/29/18 17:14 Carbon Dioxide 34 mEq/L (23-29) H 04/02/18 05:29 Glucose 149 mg/dL (70-105) H 04/02/18 05:29 POC Glucose 186 mg/dL (70-99) H 04/01/18 20:57 Calcium 7.0 mg/dL (8.6-10.3) L 04/02/18 05:29 Venous Ioniz Calcium 0.98 mmol/L (1.15-1.35) L 04/02/18 14:23 Magnesium 1.3 mg/dL (1.6-2.6) L 04/02/18 05:29 Serum Total Protein 5.3 g/dL (6.4-8.9) L 04/01/18 04:10 Albumin 2.6 g/dL (3.5-5.7) L 04/01/18 04:10 Albumin/Globulin Ratio 1.0 (1.1-2.2) L 04/01/18 04:10 Vancomycin Trough 12 mcg/mL (5-10) H 03/31/18 19:53 Consult Discharge Plan - Plan Referrals: Bulmaro Negro MD [Primary Care Provider] - 04/09/18 3:00 pm
[2018-04-02] MEDS: traMADol 50 MG TABLET PO PRN (17:20)
[2018-04-03 04:33] LABS: Basophils # 0.1 K/mcL (0.0-0.2); Basophils % 0.5 %; Eosinophils # 0.2 K/mcL (0.0-0.6); Eosinophils % 1.8 %; Hematocrit 33.7 % (37.5-50.1); Hemoglobin 10.5 g/dL (12.9-16.9); Immature Granulocytes % 0.6 % (0-4); Lymphocytes # 1.3 K/mcL (0.6-4.6); Lymphocytes % 10.7 %; Mean Corpuscular HGB Conc 31.2 g/dL (31.6-35.5); Mean Corpuscular Hemoglobin 27.4 pg (28.0-33.3); Mean Platelet Volume 10.3 fL (9.4-12.4); Monocytes # 0.9 K/mcL (0.0-1.3); Monocytes % 7.7 %; Neutrophils # 9.5 K/mcL (1.6-8.9); Platelet Count 304 K/mcL (140-400); Red Blood Count 3.83 M/mcL (4.19-5.50); Red Cell Distribution Width 14.8 % (11.5-14.5); Segmented Neutrophils % 78.7 %
[2018-04-03 05:00] LABS: Alanine Aminotransferase 13 Units/L (7-52); Albumin 2.8 g/dL (3.5-5.7); Alkaline Phosphatase 67 Units/L (34-104); Aspartate Amino Transferase 12 Units/L (13-39); BUN/Creatinine Ratio 15 (6-26); Bilirubin,Total 0.4 mg/dL (0.3-1.0); Blood Urea Nitrogen 13 mg/dL (8-23); Carbon Dioxide 30 mEq/L (23-29); Chloride 107 mEq/L (98-107); Globulin 2.8 g/dL (2.4-3.5); Glucose 102 mg/dL (70-105); Osmolality,Calculated 298 (280-300); Potassium 4.1 mEq/L (3.5-5.1); Sodium 144 mEq/L (136-145); Total Protein 5.6 g/dL (6.4-8.9); eGFR For African Americans > 60 (> 60); eGFR For Non-African Americans > 60 (> 60)
[2018-04-03] MEDS: *HR* Heparin 5,000 UNIT/ML VIAL SQ SCH ×3 (05:40→22:36)
[2018-04-03] MEDS: Metoprolol XL (24 HR) Succ 50 MG TAB.ER.24H PO SCH (09:02)
[2018-04-03] MEDS: Diltiazem CD (24hr) 120 MG CAPSULE PO SCH (09:02)
[2018-04-03] MEDS: Magnesium Oxide 400 MG TABLET PO SCH (09:02)
[2018-04-03] MEDS: Insulin LISPRO 300 UNITS/3 ML VIAL SQ SCH ×4 (09:14→22:37)
--- NOTE | 2018-04-03 10:18 | Neurology Progress Note ---
Date of Encounter: 04/03/18 Time of Encounter: 10:16 Assessment and Plan (1) Acute delirium Current Visit: Yes Status: Acute Suspect acute delirium seems to be improving today. I find no evidence of a primary central nervous system etiology to explain his symptoms. I would recommend increasing his activity to tolerance. We will reevaluate him at your request. Subjective Interval history: The chart was reviewed, the patient was seen and examined. His is present in the room. This morning he seems to be a bit improved. He is making eye contact and is somewhat more attentive. He follows commands and answers questions appropriately, he still seems a bit somnolent however. He is not back to his normal baseline. I see no tremors present today. Objective - Constitutional Vitals: Temp Pulse Resp BP Pulse Ox 97.7 F 88 18 127/95 95 04/03/18 07:00 04/03/18 07:00 04/03/18 07:00 04/03/18 07:00 04/03/18 07:00 - Neurological Exam Motor examination - right side: 5/5: deltoids, biceps, triceps, change booth attendant, hip flexors, tibialis Anterior, quadriceps, toe extension (EHL), plantarflexion Motor examination - left side: 5/5: deltoids, biceps, triceps, hip flexors, change booth attendant , quadriceps, tibialis Anterior, toe extension (EHL), plantarflexion Sensation intact: Present: intact Reflex and gait examination: other (Diminished throughout. No long tract signs are present.) Mental Status Examination: Present: awake, oriented to person, drowsy, makes eye contact, follows simple commands, localizes noxious stimulation, glabellar sign present, motor apraxia Cranial nerve examination: Present: PERRL, visual dixon intact, sensory to face intact, mastication intact, no facial asymmetry is present, no dysarthria, hearing is intact symmetrically, tongue protrudes midline. Absent: EOMI (He does seem to have disconjugate gaze present.) Cerebellar examination: Present: no dysmetria - VTE Documentation of Mechanical Device: Intermittent pneumatic compression device Results - Laboratory Findings CBC and BMP: 04/03/18 03:53 04/03/18 03:53 Abnormal lab findings: Abnormal lab results WBC 12.0 K/mcL (4.3-11.1) H 04/03/18 03:53 RBC 3.83 M/mcL (4.19-5.50) L 04/03/18 03:53 Hgb 10.5 g/dL (12.9-16.9) L 04/03/18 03:53 Hct 33.7 % (37.5-50.1) L 04/03/18 03:53 MCH 27.4 pg (28.0-33.3) L 04/03/18 03:53 MCHC 31.2 g/dL (31.6-35.5) L 04/03/18 03:53 RDW 14.8 % (11.5-14.5) H 04/03/18 03:53 Neutrophils # 9.5 K/mcL (1.6-8.9) H 04/03/18 03:53 Nucleated RBCs/100 WBC 0.2 /100 WBC (0) H 04/01/18 04:10 ABG pH 7.50 pH Units (7.32-7.45) H 03/29/18 17:14 ABG HCO3 29 mEq/L (21-27) H 03/29/18 17:14 ABG Total CO2 31 mEq/L (20-26) H 03/29/18 17:14 ABG Base Excess 6 mEq/L (-2 to 3) H 03/29/18 17:14 Carbon Dioxide 30 mEq/L (23-29) H 04/03/18 03:53 POC Glucose 100 mg/dL (70-99) H 04/02/18 19:39 Calcium 8.0 mg/dL (8.6-10.3) L 04/03/18 03:53 Venous Ioniz Calcium 0.98 mmol/L (1.15-1.35) L 04/02/18 14:23 AST 12 Units/L (13-39) L 04/03/18 03:53 Serum Total Protein 5.6 g/dL (6.4-8.9) L 04/03/18 03:53 Albumin 2.8 g/dL (3.5-5.7) L 04/03/18 03:53 Albumin/Globulin Ratio 1.0 (1.1-2.2) L 04/03/18 03:53 Vancomycin Trough 12 mcg/mL (5-10) H 03/31/18 19:53 Consult Discharge Plan - Plan Referrals: Bulmaro Negro MD [Primary Care Provider] - 04/09/18 3:00 pm
--- NOTE | 2018-04-03 11:08 | Internal Med Progress Note ---
Date of Encounter: 04/03/18 Time of Encounter: 11:08 - Assessment and plan (1) Atrial fibrillation with RVR Current Visit: Yes Status: Resolved Assessment and plan: Resolved HR now controlled Known hx of afib not on a/c due to GIB Continue Cardizem and toprol (2) Esophageal cancer Current Visit: Yes Status: Chronic Assessment and plan: Recent diagnosis of esophageal cancer and plan to undergo Chemoradiation but has not started therapy. Plan to follow up with Oncology on discharge. Has had some weight loss of about 40 Lbs over last 6 months. Qualifiers: Malignant neoplasm of esophagus location: lower third Qualified Code(s): C15.5 - Malignant neoplasm of lower third of esophagus (3) SUNI (acute kidney injury) Current Visit: Yes Status: Resolved Assessment and plan: Resolved. Secondary to possible afib rvr vs sepsis. Cr 1.14, improved from 1.24. Baseline 1.1 Continue encourage oral fluids (4) Electrolyte imbalance Current Visit: Yes Status: Acute Assessment and plan: Magnessium, Calcium, potassium corrected (5) Diabetes mellitus Current Visit: Yes Status: Chronic Assessment and plan: History of type II diabetes with A1C 7.8 Continue with diabetic diet and sliding scale insulin. Blood sugars well controlled during hospital stay. Qualifiers: Diabetes mellitus type: type 2 Diabetes mellitus mcfp insulin use: without lobsterman use Diabetes mellitus complication status: with circulatory complication Diabetes mellitus complication detail: with other circulatory complications Qualified Code(s): E11.59 - Type 2 diabetes mellitus with other circulatory complications (6) Hypertension Current Visit: Yes Status: Chronic Assessment and plan: Known history of hypertension. Bp 108-133/87-96 Continue holding hypertensive medications as bp stable and controlled, also on cardizem for afib. Qualifiers: Hypertension type: essential hypertension Qualified Code(s): I10 - Essential (primary) hypertension (7) DVT prophylaxis Current Visit: Yes Status: Acute Assessment and plan: Heparin subcutaneous. (8) Severe sepsis Current Visit: Yes Status: Ruled-out Assessment and plan: Ruled out All culturs negative and no source of sepsis Patient admitted with elevated WBC, tachycardia, and SUNI and initial lactic acid 2.1 with resolution after fluids. Urine culture negative and blood cultures at this time preliminary negative. Previous history of MRSA bacteremia. Patient is afebrile. Leukocytosis continues to downtrend At this time, patient does not appear to be septic. Will discontinue Vancomycin d3 and Zosyn d3 and continue following blood cultures. (9) Protein-calorie malnutrition, moderate Current Visit: Yes Status: Chronic Assessment and plan: 40 pound weight loss over past 6 months without known difficulties with feeding Nutrition consulted, Ensure supplement PT/OT ordered recommends Swing Bed on discharge (10) Intermittent confusion Current Visit: Yes Status: Acute Assessment and plan: Patient's reports progressive confusion for past couple months and is still currently confused. Patient AxO x 3 Patient previously on Xarelto, but was discontinued due to gi bleed. Has afib and unable to anticoagulate due to recent gi bleed. Patient also has known recent diagnosis of esophageal cancer. Consideration into possible multi infarct vs vascular dementia vs possible metastatic disease; however, MRI completed revealed no acute intracranial abnormality, no metastatic disease, and diffuse parenchymal loss. EEG ruled out seizures Brain MRI no acute issues TSH WNL Vit B 12 WNL - Time Spent With Patient Total time spent is greater than 50% in coordination of care (as documented) at patient's floor/unit and/or counseling patient: - Subjective Interval history: Patient is awake and oriented X3 He has made clinical improvement There is no signs of infection, EEG negative for seizures, he is having delirium . Neuro eval noted Pending SNF placement for rehab He denied any new complains - Constitutional Vitals: Temp Pulse Resp BP Pulse Ox 97.7 F 88 18 127/95 95 04/03/18 07:00 04/03/18 07:00 04/03/18 07:00 04/03/18 07:00 04/03/18 07:00 General appearance: Present: A&O X 3, morbidly obese, no acute distress, obese, answers questions appropriately - Head Head exam: Present: atraumatic, normocephalic - Eye Eye exam: Present: PERRL, conjuntiva pink, sclera anicteric Pupils: Present: PERRL - Neck Neck exam general surgery: Present: supple, trachea midline. Absent: lymphadenopathy - Respiratory Respiratory exam: Present: CTAB. Absent: accessory muscle use, rales, rhonchi, wheezes - Cardiovascular Cardiovascular exam: Present: RRR, +S1, +S2. Absent: diastolic murmur, gallop, rubs, systolic murmur - GI/Abdominal GI/Abdominal exam: Present: normal bowel sounds, soft, no peritoneal signs. Absent: distended, tenderness - Extremities Exam Additional comments: chronic venous stasis changes - Neurological Exam Neurological exam: Present: alert, CN II-XII intact, oriented X3, no focal deficits. Absent: pronater drift, facial droop, speech deficit - Skin Skin exam: Present: dry, intact Internal Medicine: Result - Labs CBC & Chem 7: 04/03/18 03:53 04/03/18 03:53 Labs: Short CBC 04/03/18 Range/Units 03:53 WBC 12.0 H (4.3-11.1) K/mcL Hgb 10.5 L (12.9-16.9) g/dL Hct 33.7 L (37.5-50.1) % Plt Count 304 (140-400) K/mcL Neutrophils # 9.5 H (1.6-8.9) K/mcL BMP 04/03/18 03:53 Sodium 144 Potassium 4.1 Chloride 107 Carbon Dioxide 30 H BUN 13 Creatinine 0.85 Glucose 102 Calcium 8.0 L Liver Function 04/03/18 Range/Units 03:53 Total Bilirubin 0.4 (0.3-1.0) mg/dL AST 12 L (13-39) Units/L ALT 13 (7-52) Units/L Alkaline Phosphatase 67 (34-104) Units/L Albumin 2.8 L (3.5-5.7) g/dL - ABG Interpretation ABG results: ABG ABG pH 7.50 pH Units (7.32-7.45) H 03/29/18 17:14 ABG pCO2 38 mmHg (35-45) 03/29/18 17:14 ABG pO2 92 mmHg (85-104) D 03/29/18 17:14 ABG O2 Saturation 98 % (95-98) 03/29/18 17:14 - VTE Documentation of Mechanical Device: Intermittent pneumatic compression device Consult Discharge Plan - Plan Referrals: Bulmaro Negro MD [Primary Care Provider] - 04/09/18 3:00 pm
[2018-04-03 14:39] LABS: VBG Ionized Calcium 1.06 mmol/L (1.15-1.35)
[2018-04-04] MEDS: *HR* Heparin 5,000 UNIT/ML VIAL SQ SCH ×3 (05:08→23:08)
[2018-04-04] MEDS: Insulin LISPRO 300 UNITS/3 ML VIAL SQ SCH ×4 (08:00→23:09)
[2018-04-04] MEDS: Metoprolol XL (24 HR) Succ 50 MG TAB.ER.24H PO SCH (09:55)
[2018-04-04] MEDS: Magnesium Oxide 400 MG TABLET PO SCH (09:55)
[2018-04-04] MEDS: Diltiazem CD (24hr) 120 MG CAPSULE PO SCH (09:55)
--- NOTE | 2018-04-04 11:37 | Internal Med Progress Note ---
Date of Encounter: 04/04/18 Time of Encounter: 11:37 - Assessment and plan (1) Atrial fibrillation with RVR Current Visit: Yes Status: Resolved Assessment and plan: Resolved HR now controlled Known hx of afib not on a/c due to GIB Continue Cardizem and toprol (2) Esophageal cancer Current Visit: Yes Status: Chronic Assessment and plan: Recent diagnosis of esophageal cancer and plan to undergo Chemoradiation but has not started therapy. Plan to follow up with Oncology on discharge. Has had some weight loss of about 40 Lbs over last 6 months. Qualifiers: Malignant neoplasm of esophagus location: lower third Qualified Code(s): C15.5 - Malignant neoplasm of lower third of esophagus (3) SUNI (acute kidney injury) Current Visit: Yes Status: Resolved Assessment and plan: Resolved. Secondary to possible afib rvr vs sepsis. Cr 1.14, improved from 1.24. Baseline 1.1 Continue encourage oral fluids (4) Electrolyte imbalance Current Visit: Yes Status: Resolved Assessment and plan: Magnessium, Calcium, potassium corrected (5) Diabetes mellitus Current Visit: Yes Status: Chronic Assessment and plan: History of type II diabetes with A1C 7.8 Continue with diabetic diet and sliding scale insulin. Blood sugars well controlled during hospital stay. 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 Bp 108-133/87-96 Continue holding hypertensive medications as bp stable and controlled, also on cardizem for afib. Qualifiers: Hypertension type: essential hypertension Qualified Code(s): I10 - Essential (primary) hypertension (7) DVT prophylaxis Current Visit: Yes Status: Acute Assessment and plan: Heparin subcutaneous. (8) Severe sepsis Current Visit: Yes Status: Ruled-out Assessment and plan: Ruled out All culturs negative and no source of sepsis Patient admitted with elevated WBC, tachycardia, and SUNI and initial lactic acid 2.1 with resolution after fluids. Urine culture negative and blood cultures at this time preliminary negative. Previous history of MRSA bacteremia. Patient is afebrile. Leukocytosis continues to downtrend At this time, patient does not appear to be septic. Will discontinue Vancomycin d3 and Zosyn d3 and continue following blood cultures. (9) Protein-calorie malnutrition, moderate Current Visit: Yes Status: Chronic Assessment and plan: 40 pound weight loss over past 6 months without known difficulties with feeding Nutrition consulted, Ensure supplement PT/OT ordered recommends Swing Bed on discharge (10) Intermittent confusion Current Visit: Yes Status: Acute Assessment and plan: Patient's reports progressive confusion for past couple months and is still currently confused. Patient AxO x 3 Patient previously on Xarelto, but was discontinued due to gi bleed. Has afib and unable to anticoagulate due to recent gi bleed. Patient also has known recent diagnosis of esophageal cancer. Neuro eval-possible delirium EEG ruled out seizures Brain MRI no acute issues TSH WNL Vit B 12 WNL Continue to monitor AAOX3 now - Time Spent With Patient Total time spent is greater than 50% in coordination of care (as documented) at patient's floor/unit and/or counseling patient: - Subjective Interval history: Patient is awake and oriented X3 at the bedside also denies any new events in the past few hrs He has made clinical improvement There is no signs of infection, EEG negative for seizures, he is having delirium . Neuro eval noted Pending SNF placement for rehab He denied any new complains - Constitutional Vitals: Temp Pulse Resp BP Pulse Ox 97.6 F 68 18 129/75 100 04/04/18 07:12 04/04/18 07:12 04/04/18 07:12 04/04/18 07:12 04/04/18 07:12 General appearance: Present: A&O X 3, morbidly obese, no acute distress, obese, answers questions appropriately - Head Head exam: Present: atraumatic, normocephalic - Eye Eye exam: Present: PERRL, conjuntiva pink, sclera anicteric Pupils: Present: PERRL - Neck Neck exam general surgery: Present: supple, trachea midline. Absent: lymphadenopathy - Respiratory Respiratory exam: Present: CTAB. Absent: accessory muscle use, rales, rhonchi, wheezes - Cardiovascular Cardiovascular exam: Present: irregular rhythm, +S1, +S2. Absent: diastolic murmur, gallop, rubs, systolic murmur - GI/Abdominal GI/Abdominal exam: Present: normal bowel sounds, soft, no peritoneal signs. Absent: distended, tenderness - Extremities Exam Extremities exam: Present: warm, radial pulses palpable and symmetrical. Absent : calf tenderness, cyanotic, pedal edema Additional comments: chronic venous stasis changes - Neurological Exam Neurological exam: Present: alert, CN II-XII intact, oriented X3, no focal deficits. Absent: pronater drift, facial droop, speech deficit - Skin Skin exam: Present: dry, intact Internal Medicine: Result - Labs CBC & Chem 7: 04/03/18 03:53 04/03/18 03:53 - ABG Interpretation ABG results: ABG ABG pH 7.50 pH Units (7.32-7.45) H 03/29/18 17:14 ABG pCO2 38 mmHg (35-45) 03/29/18 17:14 ABG pO2 92 mmHg (85-104) D 03/29/18 17:14 ABG O2 Saturation 98 % (95-98) 03/29/18 17:14 - VTE Documentation of Mechanical Device: Intermittent pneumatic compression device Consult Discharge Plan - Plan Referrals: Bulmaro Negro MD [Primary Care Provider] - 04/09/18 3:00 pm
[2018-04-04] MEDS: traMADol 50 MG TABLET PO PRN (23:09)
[2018-04-05] MEDS: *HR* Heparin 5,000 UNIT/ML VIAL SQ SCH ×3 (06:41→22:51)
[2018-04-05] MEDS: traMADol 50 MG TABLET PO PRN ×3 (06:52→22:52)
[2018-04-05] MEDS: Insulin LISPRO 300 UNITS/3 ML VIAL SQ SCH ×4 (08:10→23:13)
[2018-04-05] MEDS: Magnesium Oxide 400 MG TABLET PO SCH (09:53)
[2018-04-05] MEDS: Diltiazem CD (24hr) 120 MG CAPSULE PO SCH (09:53)
[2018-04-05] MEDS: Metoprolol XL (24 HR) Succ 50 MG TAB.ER.24H PO SCH (09:53)
--- NOTE | 2018-04-05 09:53 | Discharge Summary ---
<Miguel Lafleur - Last Filed: 04/05/18 13:11> - NOTES TO OUTPATIENT PROVIDER Notes to Outpatient Provider: Patient was sent to [facility] on 03/29/18 due to having a high WBC, but was found to have a. fib with rvr. He had severe sepsis and there was concern that the etiology was UTI given his previous indwelling tomlinson catheter. His a. fib. with rvr was improved with a cardizem drip. He given vancomycin due to the sensitivities of his previous UTI organisms. He improve significantly, but there was some concern with the development of delirium. He was seen by neurology who felt that his encephalopathy was an acute delirium, though he might have some baseline dementia. As of today, he has resolution of all of his symptoms and is safe/stable for discharge to a fpc facility for further rehabilitation. He will likely need follow up with his PCP for evaluation for resolution of his problems, heme/onc to reassess his esophageal cancer. 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 (3) SUNI (acute kidney injury) Priority: Primary Status: Resolved (4) Electrolyte imbalance Priority: Primary Status: Resolved (5) Diabetes mellitus Priority: Primary Status: Chronic Qualifiers: Diabetes mellitus type: type 2 Diabetes mellitus intermodal dispatcher insulin use: without fci use Diabetes mellitus complication status: with circulatory complication Diabetes mellitus complication detail: with other circulatory complications Qualified Code(s): E11.59 - Type 2 diabetes mellitus with other circulatory complications (6) Hypertension Priority: Primary Status: Chronic Qualifiers: Hypertension type: essential hypertension Qualified Code(s): I10 - Essential (primary) hypertension (7) DVT prophylaxis Priority: Secondary Status: Acute (8) Severe sepsis Priority: Primary Status: Ruled-out (9) Protein-calorie malnutrition, moderate Priority: Primary Status: Chronic (10) Intermittent confusion Priority: Primary Status: Chronic Hospital course: Mr. Jimenez is a 72 year old male with medical history of atrial fibrillation, esophageal cancer, CHF, COPD, DM, venous stasis, urinary incontinence with in- dwelling tomlinson. Patient was sent to [facility] on 03/29/18 due to having a high WBC, but was found to have a. fib with rvr. He had severe sepsis and there was concern that the etiology was UTI given his previous indwelling tomlinson catheter. His a. fib. with rvr was improved with a cardizem drip. He given vancomycin due to the sensitivities of his previous UTI organisms. He improve significantly, but there was some concern with the development of delirium. He was seen by neurology who felt that his encephalopathy was an acute delirium, though he might have some baseline dementia. As of today, he has resolution of all of his symptoms and is safe/stable for discharge to a fpc facility for further rehabilitation. He will likely need follow up with his PCP for evaluation for resolution of his problems, heme/onc to reassess his esophageal cancer. Discharge discussed with: patient, nurse - Time Spent with Patient Total time spent providing and/or coordinating discharge services: Greater than 30 minutes - Discharge Medications Prescriptions: Diltiazem CD (24hr) [Cardizem CD] 120 mg PO DAILY #30 cap.er.24h Home Medications: Furosemide [Lasix] 20 mg PO BID 03/29/18 [History] Lisinopril [Zestril] 40 mg PO DAILY 03/29/18 [History] Metformin HCl [Metformin HCl ER] 1,000 mg PO BID 03/29/18 [History] Metoprolol Succinate [Toprol Xl] 100 mg PO DAILY 03/29/18 [History] Omeprazole [PriLOSEC] 40 mg PO DAILY 03/29/18 [History] Oxybutynin Chloride [Ditropan Xl] 15 mg PO DAILY 03/29/18 [History] SitaGLIPtin [Januvia] 100 mg PO DAILY 03/29/18 [History] Tramadol HCl [Ultram] 50 mg PO TID PRN 03/29/18 [History] Diltiazem CD (24hr) [Cardizem CD] 120 mg PO DAILY #30 cap.er.24h 04/05/18 [Rx] Allergies/Adverse Reactions: 3 Allergy/AdvReac Type Severity Reaction Status Date / Time No Known Allergies Allergy Verified 03/29/18 18:46 Date of admission: 03/29/18 20:12 Primary care physician: Bulmaro Negro MD Consults: 04/02/18 09:49 Consult to Occupational Therapy [CONS] Routine Comment: Evaluate, develop and implement POC Reason for Consult: physical deconditioning, multiple hospital stays, weight loss. Does patient have active BEDREST order?: No Is patient medically & hemodynamically stable?: Yes Patient assessed for mobility or mobilized this visit?: No Consult to Physical Therapy [CONS] Routine Comment: Evaluate, develop and implement POC Reason for Consult: physical deconditioning, multiple hospital stays, weight loss. Does patient have active BEDREST order?: No Is patient medically & hemodynamically stable?: Yes Patient assessed for mobility or mobilized this visit?: No 04/02/18 10:11 Consult to Neurology [CONS] Routine Consulting Provider: [facility] Reason for Consult: Intermittent confusion, Dr. Olivares Call Completed: Yes 04/02/18 14:21 Consult to Interpret Exam [CONS] Routine Consulting Provider: Yon Olivares Consult to Interpret Exam: Interpret Sleep Study Discharging clinician: Miguel Lafleur Anticipated date of discharge: 04/05/18 - Constitutional Vitals: Temp Pulse Resp BP Pulse Ox 97.8 F 86 20 140/93 96 04/05/18 07:43 04/05/18 07:43 04/05/18 07:43 04/05/18 07:43 04/05/18 07:43 General appearance: Present: A&O X 3, morbidly obese, no acute distress, obese, answers questions appropriately Exam: General: Cooperative, pleasant, no acute distress, alert and oriented 3, answers questions appropriately HEENT: Normocephalic, atraumatic, Conjunctiva pink, sclera anicteric, oral mucosa moist, no orophargeal erythema or exudates Respiratory: No accessory muscle usage, clear to auscultation bilaterally, no wheezes/rhonchi/rales appreciated Cardiovascular: Regular rate and rhythm, S1 and S2 present, no murmurs/rubs/ gallops/clicks appreciated GI/abdominal: Nondistended, nontender, soft, normal bowel sounds, no peritoneal signs Extremities: No calf tenderness, chronic skin changes in the lower extremities, no pedal edema appreciated, warm, lower extremity pulses palpable and symmetrical Neurological: Alert and oriented 3, no facial droop, no focal deficits Skin: Dry, intact, normal color - Patient Status Disposition: Transfer SNF Condition: Fair Overall status at discharge: patient is progressing back to baseline - Discharge Instructions Follow Up With: Bulmaro Negro MD [Primary Care Provider] - 04/09/18 3:00 pm Additional Instructions: Please return to emergency department if development of chest pain or shortness of breath. Development of fever, chills, or sweating would be reason to return to the emergency room. Please take all medications prescribed: Cardizem 120 mg daily Resume prior home medications Please follow-up with your PCP 1-2 weeks Please follow-up with hematology/oncology - Diet and Activity Activity: as per physical therapy Diet: diabetic diet - VTE Documentation of Mechanical Device: Intermittent pneumatic compression device <Jude Yi - Last Filed: 04/05/18 14:40> Orders not resulted at time of discharge: Pending orders 04/03/18 08:17 MMA (VIT B12 STATUS) Stat Date of Encounter: 04/05/18 - Discharge Diagnosis (1) Atrial fibrillation with RVR Status: Resolved (2) Esophageal cancer Status: Chronic Qualifiers: Malignant neoplasm of esophagus location: lower third Qualified Code(s): C15.5 - Malignant neoplasm of lower third of esophagus (3) SUNI (acute kidney injury) Status: Resolved (4) Electrolyte imbalance Status: Resolved (5) Diabetes mellitus Status: Chronic Qualifiers: Diabetes mellitus type: type 2 Diabetes mellitus intermodal dispatcher insulin use: without intermodal dispatcher use Diabetes mellitus complication status: with circulatory complication Diabetes mellitus complication detail: with other circulatory complications Qualified Code(s): E11.59 - Type 2 diabetes mellitus with other circulatory complications (6) Hypertension Status: Chronic Qualifiers: Hypertension type: essential hypertension Qualified Code(s): I10 - Essential (primary) hypertension (7) DVT prophylaxis Status: Acute (8) Severe sepsis Status: Ruled-out (9) Protein-calorie malnutrition, moderate Status: Chronic (10) Intermittent confusion Status: Chronic Hospital course: Mr. Jimenez is a 72 year old male - Time Spent with Patient Total time spent providing and/or coordinating discharge services: Date of admission: 03/29/18 20:12 Primary care physician: Bulmaro Negro MD Consults: 04/02/18 09:49 Consult to Occupational Therapy [CONS] Routine Comment: Evaluate, develop and implement POC Reason for Consult: physical deconditioning, multiple hospital stays, weight loss. Does patient have active BEDREST order?: No Is patient medically & hemodynamically stable?: Yes Patient assessed for mobility or mobilized this visit?: No Consult to Physical Therapy [CONS] Routine Comment: Evaluate, develop and implement POC Reason for Consult: physical deconditioning, multiple hospital stays, weight loss. Does patient have active BEDREST order?: No Is patient medically & hemodynamically stable?: Yes Patient assessed for mobility or mobilized this visit?: No 04/02/18 10:11 Consult to Neurology [CONS] Routine Consulting Provider: [facility] Reason for Consult: Intermittent confusion, Dr. Olivares Call Completed: Yes 04/02/18 14:21 Consult to Interpret Exam [CONS] Routine Consulting Provider: Yon Olivares Consult to Interpret Exam: Interpret Sleep Study - Constitutional Vitals: Temp Pulse Resp BP Pulse Ox 98.5 F 88 18 133/97 95 04/05/18 12:00 04/05/18 12:00 04/05/18 12:00 04/05/18 12:00 04/05/18 12:00 - Attending Attestation I examined this patient and my medical decision-making was reviewed with the Resident Physician on 04/05/18. I agree with the documented findings, disposition and treatment plan as described except to the extent set forth below. Admitted for Afib with RVR (Not on anticoagulation due to prior GIB), Presumed sepsis (all cultures and imaging negative antibiotics discontinued 04/01), Sepsis ruled out as there was no defined source, He has a PMH of Esophageal CA, Chronic venous stasis, HTN, DM< COPD, recurrent UTIS. Hospital stay complicated with intention tremors,as well as episodes of waxing and waning mental status possibly due to delirium. Brain MRI was unremarkable. TSH, Vit B12 unremarkable , EEG compatible with no seizures, possible encephalopathy, Neuro evaluated with no new recommendations. Patient has been AAOX3 fo 3 consecutive days, no new problems medically. All deficient electrolytes were replaced, safe to discharge to SNF for rehab. Follow up with PCP and Oncology Rest of details as in the resident physician's documentation
--- NOTE | 2018-04-05 09:54 | Physician Discharge Referral ---
ExtendedCare Referral Info Provider in Charge after Transfer: PCP Institutional Level of Care: Skilled - Diagnosis (1) Atrial fibrillation with RVR Priority: Primary Status: Resolved (2) Esophageal cancer Priority: Primary Status: Chronic (3) SUNI (acute kidney injury) Priority: Primary Status: Resolved (4) Electrolyte imbalance Priority: Primary Status: Resolved (5) Diabetes mellitus Priority: Primary Status: Chronic (6) Hypertension Priority: Primary Status: Chronic (7) DVT prophylaxis Priority: Secondary Status: Acute (8) Severe sepsis Priority: Primary Status: Ruled-out (9) Protein-calorie malnutrition, moderate Priority: Primary Status: Chronic (10) Intermittent confusion Priority: Primary Status: Chronic - Transfer Medications Prescriptions: Diltiazem CD (24hr) [Cardizem CD] 120 mg PO DAILY #30 cap.er.24h Home Medications: Furosemide [Lasix] 20 mg PO BID 03/29/18 [History] Lisinopril [Zestril] 40 mg PO DAILY 03/29/18 [History] Metformin HCl [Metformin HCl ER] 1,000 mg PO BID 03/29/18 [History] Metoprolol Succinate [Toprol Xl] 100 mg PO DAILY 03/29/18 [History] Omeprazole [PriLOSEC] 40 mg PO DAILY 03/29/18 [History] Oxybutynin Chloride [Ditropan Xl] 15 mg PO DAILY 03/29/18 [History] SitaGLIPtin [Januvia] 100 mg PO DAILY 03/29/18 [History] Tramadol HCl [Ultram] 50 mg PO TID PRN 03/29/18 [History] Diltiazem CD (24hr) [Cardizem CD] 120 mg PO DAILY #30 cap.er.24h 04/05/18 [Rx] Allergies/Adverse Reactions: 3 Allergy/AdvReac Type Severity Reaction Status Date / Time No Known Allergies Allergy Verified 03/29/18 18:46 - Respiratory Orders Smoking Cessation: Smoking cessation has been advised. For more information, call the [place] Tobacco Quit Line at 1-464-XEBR-NOW. - Advance Directives Code Status: Full Code - Rehabiliation Orders Rehab Potential: Fair Rehab Orders: Evaluation for Physical Therapy, Evaluation for Occupational Therapy - Diet Orders No Concentrated Sweets CERTIFICATION: I certify that the transfer of the above named patient to an Extended Care Facility is necessary for the continuing treatment of the diagnosis listed. The above information is true and accurate reflection of patient's current condition. Confidential - Redisclosure prohibited without a patient's written consent.
[2018-04-06] MEDS: traMADol 50 MG TABLET PO PRN ×2 (05:23→14:00)
[2018-04-06] MEDS: *HR* Heparin 5,000 UNIT/ML VIAL SQ SCH ×3 (05:23→21:33)
--- NOTE | 2018-04-06 08:06 | Internal Med Progress Note ---
<Miguel Lafleur - Last Filed: 04/06/18 08:24> Date of Encounter: 04/06/18 Time of Encounter: 07:55 - Assessment and plan (1) Atrial fibrillation with RVR Current Visit: Yes Status: Resolved Assessment and plan: Resolved HR now controlled with PO cardizem Known hx of afib not on a/c due to GIB Continue Cardizem and toprol (2) Esophageal cancer Current Visit: Yes Status: Chronic Assessment and plan: Recent diagnosis of esophageal cancer and plan to undergo Chemoradiation but has not started therapy Has had some weight loss of about 40 Lbs over last 6 months Plan to follow up with Oncology on discharge Qualifiers: Malignant neoplasm of esophagus location: lower third Qualified Code(s): C15.5 - Malignant neoplasm of lower third of esophagus (3) SUNI (acute kidney injury) Current Visit: Yes Status: Resolved Assessment and plan: Resolved Secondary to possible afib rvr vs sepsis Cr 1.14, improved from 1.24 Baseline 1.1 Continue encourage oral fluids (4) Electrolyte imbalance Current Visit: Yes Status: Resolved Assessment and plan: Resolved (5) Diabetes mellitus Current Visit: Yes Status: Chronic Assessment and plan: History of type II diabetes with A1C 7.8 Blood sugars well controlled during hospital stay Continue with diabetic diet and sliding scale insulin Qualifiers: Diabetes mellitus type: type 2 Diabetes mellitus senior living insulin use: without salvage determiner use Diabetes mellitus complication status: with circulatory complication Diabetes mellitus complication detail: with other circulatory complications Qualified Code(s): E11.59 - Type 2 diabetes mellitus with other circulatory complications (6) Hypertension Current Visit: Yes Status: Chronic Assessment and plan: Known history of hypertension Bp 108-133/87-96 Continue to monitor bp patient might need reduction of previous blood pressure medications given the start of cardizem Qualifiers: Hypertension type: essential hypertension Qualified Code(s): I10 - Essential (primary) hypertension (7) DVT prophylaxis Current Visit: Yes Status: Acute Assessment and plan: Heparin subcutaneous (8) Severe sepsis Current Visit: Yes Status: Ruled-out Assessment and plan: Patient admitted with elevated WBC, tachycardia, and SUNI and initial lactic acid 2.1 with resolution after fluids Ruled out All cultures negative and no source of sepsis Urine culture negative and blood cultures at this time preliminary negative Previous history of MRSA bacteremia Patient is afebrile Leukocytosis almost normal when last checked At this time, patient does not appear to be septic Will discontinue Vancomycin d3 and Zosyn d3 and continue following blood cultures (9) Protein-calorie malnutrition, moderate Current Visit: Yes Status: Chronic Assessment and plan: 40 pound weight loss over past 6 months without known difficulties with feeding Nutrition consulted, Ensure supplement PT/OT ordered recommends Swing Bed on discharge (10) Intermittent confusion Current Visit: Yes Status: Chronic Assessment and plan: Patient's reports progressive confusion for past couple months and is still currently confused Patient AxO x 3 Patient previously on Xarelto, but was discontinued due to gi bleed Has afib and unable to anticoagulate due to recent gi bleed. Patient also has known recent diagnosis of esophageal cancer Neuro eval- possible acute delirium EEG ruled out seizures Brain MRI no acute issues TSH WNL Vit B 12 WNL Continue to monitor AAOX3 now - Time Spent With Patient Total time spent is greater than 50% in coordination of care (as documented) at patient's floor/unit and/or counseling patient: - Subjective Interval history: Patient is doing well today. He has no concerns/complaints today. He is resting comfortably, denies chest pain, shortness of breath, confusion, fever, or chills. - Constitutional Vitals: Temp Pulse Resp BP Pulse Ox 97.7 F 88 15 129/97 92 04/06/18 06:31 04/06/18 06:31 04/06/18 06:31 04/06/18 06:31 04/06/18 06:31 General appearance: Present: A&O X 3, morbidly obese, no acute distress, obese, answers questions appropriately Exam: General: Cooperative, pleasant, no acute distress, alert and oriented 3, answers questions appropriately HEENT: Normocephalic, atraumatic, Conjunctiva pink, sclera anicteric, oral mucosa moist Respiratory: No accessory muscle usage, clear to auscultation bilaterally, no wheezes/rhonchi/rales appreciated Cardiovascular: Regular rate and rhythm, S1 and S2 present, no murmurs/rubs/ gallops/clicks appreciated GI/abdominal: Nondistended, nontender, soft, normal bowel sounds, no peritoneal signs Extremities: No calf tenderness, chronic skin changes in the lower extremities, no pedal edema appreciated, warm, lower extremity pulses palpable and symmetrical Neurological: Alert and oriented 3, no facial droop, no focal deficits Skin: Dry, intact, normal color Internal Medicine: Result - Labs CBC & Chem 7: 04/03/18 03:53 04/03/18 03:53 - ABG Interpretation ABG results: ABG ABG pH 7.50 pH Units (7.32-7.45) H 03/29/18 17:14 ABG pCO2 38 mmHg (35-45) 03/29/18 17:14 ABG pO2 92 mmHg (85-104) D 03/29/18 17:14 ABG O2 Saturation 98 % (95-98) 03/29/18 17:14 - VTE Documentation of Mechanical Device: Intermittent pneumatic compression device Consult Discharge Plan - Plan Instructions: Diltiazem (By mouth), Heart Failure (DC), Atrial Fibrillation (DC ), Acute Respiratory Distress Syndrome (DC), Diverticulitis (DC), Urinary Tract Infection in Men (DC), Diabetes Mellitus Type 2 in Adults (DC), Chronic Obstructive Pulmonary Disease (DC), Chronic Hypertension (DC) Additional Instructions: Please return to emergency department if development of chest pain or shortness of breath. Development of fever, chills, or sweating would be reason to return to the emergency room. Please take all medications prescribed: Cardizem 120 mg daily Resume prior home medications Please follow-up with your PCP 1-2 weeks Please follow-up with hematology/oncology Referrals: Bulmaro Negro MD [Primary Care Provider] - 04/09/18 3:00 pm Prescriptions: Diltiazem CD (24hr) [Cardizem CD] 120 mg PO DAILY #30 cap.er.24h <Ananda Caba - Last Filed: 04/06/18 17:32> Date of Encounter: 04/06/18 - Assessment and plan (1) Chronic atrial fibrillation Current Visit: Yes Status: Chronic (2) Esophageal cancer Current Visit: Yes Status: Chronic Qualifiers: Malignant neoplasm of esophagus location: lower third Qualified Code(s): C15.5 - Malignant neoplasm of lower third of esophagus (3) SUNI (acute kidney injury) Current Visit: Yes Status: Resolved (4) Electrolyte imbalance Current Visit: Yes Status: Resolved (5) Diabetes mellitus Current Visit: Yes Status: Chronic Qualifiers: Diabetes mellitus type: type 2 Diabetes mellitus salvage determiner insulin use: without senior living use Diabetes mellitus complication status: with circulatory complication Diabetes mellitus complication detail: with other circulatory complications Qualified Code(s): E11.59 - Type 2 diabetes mellitus with other circulatory complications (6) Hypertension Current Visit: Yes Status: Chronic Qualifiers: Hypertension type: essential hypertension Qualified Code(s): I10 - Essential (primary) hypertension (7) DVT prophylaxis Current Visit: Yes Status: Acute (8) Severe sepsis Current Visit: Yes Status: Ruled-out (9) Protein-calorie malnutrition, moderate Current Visit: Yes Status: Chronic (10) Intermittent confusion Current Visit: Yes Status: Chronic - Time Spent With Patient Total time spent is greater than 50% in coordination of care (as documented) at patient's floor/unit and/or counseling patient: - Constitutional Vitals: Temp Pulse Resp BP Pulse Ox 98 F 78 18 126/87 92 04/06/18 15:00 04/06/18 15:00 04/06/18 15:00 04/06/18 15:00 04/06/18 11:00 Internal Medicine: Result - Labs CBC & Chem 7: 04/03/18 03:53 04/03/18 03:53 - ABG Interpretation ABG results: ABG ABG pH 7.50 pH Units (7.32-7.45) H 03/29/18 17:14 ABG pCO2 38 mmHg (35-45) 03/29/18 17:14 ABG pO2 92 mmHg (85-104) D 03/29/18 17:14 ABG O2 Saturation 98 % (95-98) 03/29/18 17:14 - Attending Attestation I examined this patient and my medical decision-making was reviewed with the Resident Physician on 04/06/18. I agree with the documented findings, disposition and treatment plan as described except to the extent set forth below. Mr Jimenez is currently admitted for rapid atrial fibrillation. He is awaiting placement in SNF. He remains moderate to high risk due to potential for worsening clinical status. Mr Jimenez is doing OK. No fever or chills. No CP or SOB. No new issues overnight. Exam alert Comfortable Mucus membranes dry Heart not tachy No wheeze I/P 1. Atrial fib 2. Esophageal cancer Further diagnoses and plan as above Awaiting d/c to swing bed.
[2018-04-06] MEDS: Insulin LISPRO 300 UNITS/3 ML VIAL SQ SCH ×4 (10:48→21:46)
[2018-04-06] MEDS: Metoprolol XL (24 HR) Succ 50 MG TAB.ER.24H PO SCH (10:48)
[2018-04-06] MEDS: Diltiazem CD (24hr) 120 MG CAPSULE PO SCH (10:49)
[2018-04-06] MEDS: Magnesium Oxide 400 MG TABLET PO SCH (10:49)
[2018-04-07] MEDS: *HR* Heparin 5,000 UNIT/ML VIAL SQ SCH ×3 (06:11→23:09)
[2018-04-07] MEDS: Insulin LISPRO 300 UNITS/3 ML VIAL SQ SCH ×4 (07:41→23:09)
[2018-04-07] MEDS: Magnesium Oxide 400 MG TABLET PO SCH (07:49)
[2018-04-07] MEDS: Metoprolol XL (24 HR) Succ 50 MG TAB.ER.24H PO SCH (07:49)
[2018-04-07] MEDS: Diltiazem CD (24hr) 120 MG CAPSULE PO SCH (07:49)
--- NOTE | 2018-04-07 10:49 | Internal Med Progress Note ---
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 (2) SUNI (acute kidney injury) Current Visit: Yes Status: Resolved Assessment and plan: Resolved Secondary to possible afib rvr vs sepsis Continue encourage oral fluids (3) Electrolyte imbalance Current Visit: Yes Status: Resolved Assessment and plan: Resolved (4) Diabetes mellitus Current Visit: Yes Status: Chronic Assessment and plan: History of type II diabetes with A1C 7.8 Blood sugars well controlled during hospital stay Continue with diabetic diet and sliding scale insulin Qualifiers: Diabetes mellitus type: type 2 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 Diabetes mellitus complication status: with circulatory complication Diabetes mellitus complication detail: with other circulatory complications Qualified Code(s): E11.59 - Type 2 diabetes mellitus with other circulatory complications (5) Hypertension Current Visit: Yes Status: Chronic Assessment and plan: Known history of hypertension Bp 108-133/87-96 Continue to monitor bp patient might need reduction of previous blood pressure medications given the start of cardizem Qualifiers: Hypertension type: essential hypertension Qualified Code(s): I10 - Essential (primary) hypertension (6) Severe sepsis Current Visit: Yes Status: Ruled-out Assessment and plan: Patient admitted with elevated WBC, tachycardia, and SUNI and initial lactic acid 2.1 with resolution after fluids Ruled out All cultures negative and no source of sepsis Urine culture negative and blood cultures at this time preliminary negative Previous history of MRSA bacteremia Patient is afebrile Leukocytosis almost normal when last checked At this time, patient does not appear to be septic Will discontinue Vancomycin d3 and Zosyn d3 and continue following blood cultures (7) Protein-calorie malnutrition, moderate Current Visit: Yes Status: Chronic Assessment and plan: 40 pound weight loss over past 6 months without known difficulties with feeding Nutrition consulted, Ensure supplement PT/OT ordered recommends Swing Bed on discharge (8) Intermittent confusion Current Visit: Yes Status: Chronic Assessment and plan: Patient's reports progressive confusion for past couple months and is still currently confused Patient AxO x 3 Patient previously on Xarelto, but was discontinued due to gi bleed Has afib and unable to anticoagulate due to recent gi bleed. Patient also has known recent diagnosis of esophageal cancer Neuro eval- possible acute delirium EEG ruled out seizures Brain MRI no acute issues TSH WNL Vit B 12 WNL Continue to monitor AAOX3 now (9) DVT prophylaxis Current Visit: Yes Status: Acute Assessment and plan: Heparin subcutaneous (10) Chronic atrial fibrillation Current Visit: Yes Status: Chronic - Time Spent With Patient Total time spent is greater than 50% in coordination of care (as documented) at patient's floor/unit and/or counseling patient: - Subjective Interval history: Patient has no concerns or complaints today. He is doing well, he denies having any shortness of breath, palpitations, or chest pain - Constitutional Vitals: Temp Pulse Resp BP Pulse Ox 98.3 F 66 19 127/77 100 04/06/18 22:00 04/07/18 07:16 04/07/18 07:16 04/07/18 07:16 04/07/18 07:16 General appearance: Present: A&O X 3, morbidly obese, no acute distress, obese, answers questions appropriately Exam: General: Cooperative, pleasant, no acute distress, alert and oriented 3, answers questions appropriately HEENT: Normocephalic, atraumatic, Conjunctiva pink, sclera anicteric, oral mucosa moist Respiratory: No accessory muscle usage, clear to auscultation bilaterally, no wheezes/rhonchi/rales appreciated Cardiovascular: Regular rate and rhythm, S1 and S2 present, no murmurs/rubs/ gallops/clicks appreciated GI/abdominal: Nondistended, nontender, soft, normal bowel sounds, no peritoneal signs Extremities: No calf tenderness, chronic skin changes in the lower extremities, no pedal edema appreciated, warm, lower extremity pulses palpable and symmetrical Neurological: Alert and oriented 3, no facial droop, no focal deficits Skin: Dry, intact, normal color Internal Medicine: Result - Labs CBC & Chem 7: 04/03/18 03:53 04/03/18 03:53 - ABG Interpretation ABG results: ABG ABG pH 7.50 pH Units (7.32-7.45) H 03/29/18 17:14 ABG pCO2 38 mmHg (35-45) 03/29/18 17:14 ABG pO2 92 mmHg (85-104) D 03/29/18 17:14 ABG O2 Saturation 98 % (95-98) 03/29/18 17:14 - VTE Documentation of Mechanical Device: Intermittent pneumatic compression device Consult Discharge Plan - Plan Instructions: Diltiazem (By mouth), Heart Failure (DC), Atrial Fibrillation (DC ), Acute Respiratory Distress Syndrome (DC), Diverticulitis (DC), Urinary Tract Infection in Men (DC), Diabetes Mellitus Type 2 in Adults (DC), Chronic Obstructive Pulmonary Disease (DC), Chronic Hypertension (DC) Additional Instructions: Please return to emergency department if development of chest pain or shortness of breath. Development of fever, chills, or sweating would be reason to return to the emergency room. 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 (2) SUNI (acute kidney injury) Current Visit: Yes Status: Resolved (3) Electrolyte imbalance Current Visit: Yes Status: Resolved (4) Diabetes mellitus Current Visit: Yes Status: Chronic Qualifiers: Diabetes mellitus type: type 2 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 Diabetes mellitus complication status: with circulatory complication Diabetes mellitus complication detail: with other circulatory complications Qualified Code(s): E11.59 - Type 2 diabetes mellitus with other circulatory complications (5) Hypertension Current Visit: Yes Status: Chronic Qualifiers: Hypertension type: essential hypertension Qualified Code(s): I10 - Essential (primary) hypertension (6) DVT prophylaxis Current Visit: Yes Status: Acute (7) Severe sepsis Current Visit: Yes Status: Ruled-out (8) Protein-calorie malnutrition, moderate Current Visit: Yes Status: Chronic (9) Intermittent confusion Current Visit: Yes Status: Chronic (10) Chronic atrial fibrillation Current Visit: Yes Status: Chronic - Time Spent With Patient Total time spent is greater than 50% in coordination of care (as documented) at patient's floor/unit and/or counseling patient: - Constitutional Vitals: Temp Pulse Resp BP Pulse Ox 98.3 F 72 18 122/88 98 04/06/18 22:00 04/07/18 15:00 04/07/18 15:00 04/07/18 15:00 04/07/18 15:00 Internal Medicine: Result - Labs CBC & Chem 7: 04/03/18 03:53 04/03/18 03:53 - ABG Interpretation ABG results: ABG ABG pH 7.50 pH Units (7.32-7.45) H 03/29/18 17:14 ABG pCO2 38 mmHg (35-45) 03/29/18 17:14 ABG pO2 92 mmHg (85-104) D 03/29/18 17:14 ABG O2 Saturation 98 % (95-98) 03/29/18 17:14 - Attending Attestation I examined this patient and my medical decision-making was reviewed with the Resident Physician on 04/07/18. I agree with the documented findings, disposition and treatment plan as described except to the extent set forth below. Mr Jimenez is currently admitted for rapid a fib and confusion. He remains moderate due to potential for worsening clinical status. Mr Jimenez feels OK. No fever or chills. No CP or SOB today. Heart rate has been controlled per vitals. Exam alert. Comfortable Mucus membranes dry Heart irreg Lungs diminished Abd soft I/P 1. A fib 2. esophageal cancer. Further diagnoses and plan as above. Awaiting d/c plans.
[2018-04-08] MEDS: traMADol 50 MG TABLET PO PRN (03:29)
[2018-04-08] MEDS: *HR* Heparin 5,000 UNIT/ML VIAL SQ SCH ×2 (06:35→13:50)
[2018-04-08] MEDS: Metoprolol XL (24 HR) Succ 50 MG TAB.ER.24H PO SCH (08:07)
[2018-04-08] MEDS: Diltiazem CD (24hr) 120 MG CAPSULE PO SCH (08:07)
[2018-04-08] MEDS: Magnesium Oxide 400 MG TABLET PO SCH (08:07)
[2018-04-08] MEDS: Insulin LISPRO 300 UNITS/3 ML VIAL SQ SCH ×2 (08:07→11:31)
--- NOTE | 2018-04-08 10:14 | Internal Med Progress Note ---
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 (2) SUNI (acute kidney injury) Status: Resolved Assessment and plan: Resolved Secondary to possible afib rvr vs sepsis Continue encourage oral fluids (3) Diabetes mellitus Status: Chronic Assessment and plan: History of type II diabetes with A1C 7.8 Blood sugars well controlled during hospital stay Continue with diabetic diet and sliding scale insulin Qualifiers: Diabetes mellitus type: type 2 Diabetes mellitus 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 Diabetes mellitus complication status: with circulatory complication Diabetes mellitus complication detail: with other circulatory complications Qualified Code(s): E11.59 - Type 2 diabetes mellitus with other circulatory complications (4) Hypertension Status: Chronic Assessment and plan: Known history of hypertension Bp 108-133/87-96 Continue to monitor bp patient might need reduction of previous blood pressure medications given the start of cardizem Qualifiers: Hypertension type: essential hypertension Qualified Code(s): I10 - Essential (primary) hypertension (5) Severe sepsis Status: Ruled-out Assessment and plan: Patient admitted with elevated WBC, tachycardia, and SUNI and initial lactic acid 2.1 with resolution after fluids Ruled out All cultures negative and no source of sepsis Urine culture negative and blood cultures at this time preliminary negative Previous history of MRSA bacteremia Patient is afebrile Leukocytosis almost normal when last checked At this time, patient does not appear to be septic Will discontinue Vancomycin d3 and Zosyn d3 and continue following blood cultures (6) Protein-calorie malnutrition, moderate Status: Chronic Assessment and plan: 40 pound weight loss over past 6 months without known difficulties with feeding Nutrition consulted, Ensure supplement PT/OT ordered recommends Swing Bed on discharge (7) Intermittent confusion Status: Chronic Assessment and plan: Patient's reports progressive confusion for past couple months and is still currently confused Patient AxO x 3 Patient previously on Xarelto, but was discontinued due to gi bleed Has afib and unable to anticoagulate due to recent gi bleed. Patient also has known recent diagnosis of esophageal cancer Neuro eval- possible acute delirium EEG ruled out seizures Brain MRI no acute issues TSH WNL Vit B 12 WNL Continue to monitor AAOX3 now (8) DVT prophylaxis Status: Acute Assessment and plan: Heparin subcutaneous (9) Chronic atrial fibrillation Status: Chronic - Time Spent With Patient Total time spent is greater than 50% in coordination of care (as documented) at patient's floor/unit and/or counseling patient: - Subjective Interval history: Patient reports that he is doing well today, but does state that he has increased weakness in general. This has been happening for the last couple months, when he has had numerous health problems. Previously he had been able to walk some on his own (with a walker), but currently he is unable to get up on his own. He does deny having any chest discomfort, dyspnea, fever/chills, headaches, nausea or vomiting. - Constitutional Vitals: Temp Pulse Resp BP Pulse Ox 98.6 F 72 18 147/61 96 04/08/18 06:59 04/08/18 06:59 04/08/18 06:59 04/08/18 06:59 04/08/18 06:59 General appearance: Present: A&O X 3, morbidly obese, no acute distress, obese, answers questions appropriately Exam: General: Cooperative, pleasant, no acute distress, alert and oriented 3, answers questions appropriately HEENT: Normocephalic, atraumatic, Conjunctiva pink, sclera anicteric, oral mucosa moist Respiratory: No accessory muscle usage, clear to auscultation bilaterally, no wheezes/rhonchi/rales appreciated Cardiovascular: Regular rate and rhythm, S1 and S2 present, no murmurs/rubs/ gallops/clicks appreciated GI/abdominal: Nondistended, nontender, soft, normal bowel sounds, no peritoneal signs Extremities: No calf tenderness, chronic skin changes in the lower extremities, no pedal edema appreciated, warm, lower extremity pulses palpable and symmetrical Neurological: Alert and oriented 3, no facial droop, no focal deficits Skin: Dry, intact, normal color Internal Medicine: Result - Labs CBC & Chem 7: 04/03/18 03:53 04/03/18 03:53 - ABG Interpretation ABG results: ABG ABG pH 7.50 pH Units (7.32-7.45) H 03/29/18 17:14 ABG pCO2 38 mmHg (35-45) 03/29/18 17:14 ABG pO2 92 mmHg (85-104) D 03/29/18 17:14 ABG O2 Saturation 98 % (95-98) 03/29/18 17:14 - VTE Documentation of Mechanical Device: Intermittent pneumatic compression device Consult Discharge Plan - Plan Instructions: Diltiazem (By mouth), Heart Failure (DC), Atrial Fibrillation (DC ), Acute Respiratory Distress Syndrome (DC), Diverticulitis (DC), Urinary Tract Infection in Men (DC), Diabetes Mellitus Type 2 in Adults (DC), Chronic Obstructive Pulmonary Disease (DC), Chronic Hypertension (DC) Additional Instructions: Please return to emergency department if development of chest pain or shortness of breath. Development of fever, chills, or sweating would be reason to return to the emergency room. 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 (3) SUNI (acute kidney injury) Status: Resolved (4) Diabetes mellitus Status: Chronic Qualifiers: Diabetes mellitus type: type 2 Diabetes mellitus custodial insulin use: without custodial use Diabetes mellitus complication status: with circulatory complication Diabetes mellitus complication detail: with other circulatory complications Qualified Code(s): E11.59 - Type 2 diabetes mellitus with other circulatory complications (5) Hypertension Status: Chronic Qualifiers: Hypertension type: essential hypertension Qualified Code(s): I10 - Essential (primary) hypertension (6) DVT prophylaxis Status: Acute (7) Severe sepsis Status: Ruled-out (8) Protein-calorie malnutrition, moderate Status: Chronic (9) Intermittent confusion Status: Chronic (10) Morbid obesity Status: Acute - Time Spent With Patient Total time spent is greater than 50% in coordination of care (as documented) at patient's floor/unit and/or counseling patient: - Constitutional Vitals: Temp Pulse Resp BP Pulse Ox 98.3 F 83 15 149/93 92 04/08/18 14:42 04/08/18 14:42 04/08/18 14:42 04/08/18 14:42 04/08/18 14:42 Internal Medicine: Result - Labs CBC & Chem 7: 04/03/18 03:53 04/03/18 03:53 - ABG Interpretation ABG results: ABG ABG pH 7.50 pH Units (7.32-7.45) H 03/29/18 17:14 ABG pCO2 38 mmHg (35-45) 03/29/18 17:14 ABG pO2 92 mmHg (85-104) D 03/29/18 17:14 ABG O2 Saturation 98 % (95-98) 03/29/18 17:14 - Attending Attestation I examined this patient and my medical decision-making was reviewed with the Resident Physician on 04/08/18. I agree with the documented findings, disposition and treatment plan as described except to the extent set forth below. Mr Jimenez is currently admitted for confusion and UTI. He is currently afebrile. He is to go home today with C. Exam alert Comfortable Mucus membranes dry Heart not tachy No wheeze I/P 1. A fib D/C home today Pt is high risk for readmission and further morbidity due to clinical condition. He has been denied SNF by his insurance and they suggest LTC.
--- NOTE | 2018-04-08 14:10 | Physician Discharge Referral ---
Home Health/Hosp Referral Info Transfer to: Home Health Provider in Charge Post Discharge: PCP - Diagnosis (1) Esophageal cancer Priority: Primary Status: Chronic (2) SUNI (acute kidney injury) Priority: Primary Status: Resolved (3) Diabetes mellitus Priority: Primary Status: Chronic (4) Hypertension Priority: Primary Status: Chronic (5) Severe sepsis Priority: Primary Status: Ruled-out (6) Protein-calorie malnutrition, moderate Priority: Primary Status: Chronic (7) Intermittent confusion Priority: Primary Status: Chronic (8) Chronic atrial fibrillation Priority: Primary Status: Chronic (9) DVT prophylaxis Priority: Secondary Status: Acute - Respiratory Orders Oxygen / L per min (2 L/min) Smoking Cessation: Smoking cessation has been advised. For more information, call the [place] Tobacco Quit Line at 1-429-RXGI-NOW. - Diet/Nutrition Diet/Nutrition Orders: Cardiac, No Concentrated Sweets - Activity Activity Orders: Ambulate, Chair, Walker - Services Needed Following services are medically necessary services: Nursing, Home Health Aide, Physical Therapy, Occupational Therapy, Med Social Work - Transfer Medications Prescriptions: Diltiazem CD (24hr) [Cardizem CD] 120 mg PO DAILY #30 cap.er.24h Home Medications: Furosemide [Lasix] 20 mg PO BID 03/29/18 [History] Lisinopril [Zestril] 40 mg PO DAILY 03/29/18 [History] Metformin HCl [Metformin HCl ER] 1,000 mg PO BID 03/29/18 [History] Metoprolol Succinate [Toprol Xl] 100 mg PO DAILY 03/29/18 [History] Omeprazole [PriLOSEC] 40 mg PO DAILY 03/29/18 [History] Oxybutynin Chloride [Ditropan Xl] 15 mg PO DAILY 03/29/18 [History] SitaGLIPtin [Januvia] 100 mg PO DAILY 03/29/18 [History] Tramadol HCl [Ultram] 50 mg PO TID PRN 03/29/18 [History] Diltiazem CD (24hr) [Cardizem CD] 120 mg PO DAILY #30 cap.er.24h 04/05/18 [Rx] Allergies/Adverse Reactions: 3 Allergy/AdvReac Type Severity Reaction Status Date / Time No Known Allergies Allergy Verified 03/29/18 18:46 Certification: Further, I certify that my clinical findings support that this patient is homebound (i.e. absences from home require considerable and taxing effort and are for medical reasons or jewish services or infrequently or short duration when for other reasons) because: Homebound Reason: Leaving home requires considerable and taxing effort due to condition, Severity of cardiac or pulmonary status limits activity tolerance Attestation: My signature below is to certify that this patient is under my care and that I, or nurse practitioner, or a physician's cardiovascular physician assistant working with me, has a face-to -face encounter with this patient.
[2018-04-08 14:52] VITALS: BP 149/93
== END 2018-04-08 16:57 | disposition home health service (06) | DRG 374 ==
LOC: EMEROO 14:33 → 2NENU 14:33 → SUATTDRO 20:12 → 2NENU 20:48
PROVIDERS: ADMIT Internal Medicine; ATTEND Internal Medicine

== ENCOUNTER 2018-05-30 19:21 | Inpatient (IN) ==
--- NOTE | 2018-05-30 19:45 | Emergency Department Note ---
Disposition Clinical Impression: Confusion, Weakness, Irregular heart rhythm Pneumonia Qualifiers: Pneumonia type: due to unspecified organism Laterality: bilateral Lung location : lower lobe of lung Qualified Code(s): J18.1 - Lobar pneumonia, unspecified organism UTI (urinary tract infection) Qualifiers: Urinary tract infection type: acute cystitis Hematuria presence: without hematuria Qualified Code(s): N30.00 - Acute cystitis without hematuria Abdominal pain Qualifiers: Abdominal location: generalized Qualified Code(s): R10.84 - Generalized abdominal pain Disposition: Admitted As Inpatient Condition: Fair Referrals: Bulmaro Negro MD [Primary Care Provider] - Forms: ED Satisfaction Letter General Adult HPI - General Chief complaint: ED Weakness Stated complaint: generalized weakness/AMS Time Seen by Provider: 05/30/18 19:27 Source: patient, family, EMS Limitations: no limitations Nursing Notes Reviewed: Yes Vital Signs Reviewed: Yes - History of Present Illness HPI Narrative: 72-year-old male presents emergency department for generalized weakness. Patient recent diagnosis of esophageal cancer. States that he has had a dry cough. Reports that patient had generalized weakness before when he has had urinary tract infections. Patient denies any nausea or vomiting. He does report having left lower quadrant abdominal pain, radiates over the suprapubic region. Family also reports confusion. Patient on any chest pain, pressure, chest tightness. Pain Scale: 4 - Related Data Home Medications Medication Instructions Recorded Confirmed Furosemide [Lasix] 20 mg PO BID 03/29/18 05/04/18 Metformin HCl [Metformin HCl ER] 1,000 mg PO BID 03/29/18 05/04/18 Metoprolol Succinate [Toprol Xl] 50 mg PO DAILY 03/29/18 05/04/18 Omeprazole [PriLOSEC] 40 mg PO DAILY 03/29/18 05/04/18 Oxybutynin Chloride [Ditropan Xl] 15 mg PO DAILY 03/29/18 05/04/18 SitaGLIPtin [Januvia] 100 mg PO DAILY 03/29/18 05/04/18 Tramadol HCl [Ultram] 50 mg PO TID PRN 03/29/18 05/04/18 Previous Rx's Medication Instructions Recorded Diltiazem CD (24hr) [Cardizem CD] 120 mg PO DAILY #30 cap.er.24h 04/05/18 Mirtazapine [Remeron] 15 mg PO HS #30 tablet 05/04/18 Allergies Allergy/AdvReac Type Severity Reaction Status Date / Time No Known Allergies Allergy Verified 04/13/18 08:45 All systems ED: reviewed and negative except as stated. Review of Systems: As Per HPI Constitutional: Denies: fever Cardiovascular: Denies: chest pain Respiratory: Reports: cough. Denies: sputum production Gastrointestinal: Reports: abdominal pain. Denies: nausea, vomiting Genitourinary: Denies: urgency, dysuria, frequency Neurological: Reports: weakness Endocrine: Reports: fatigue Past Medical History - Past Medical History Medical history: Reports: atrial fibrillation, cancer, CHF, COPD, diabetes, GERD , hyperlipidemia, hypertension, malignancy, venous stasis Surgical history: Reports: appendectomy, cholecystectomy, herniorrhaphy, knee replacement Psychiatric history: Reports: anxiety - Social History Smoking Status: Never smoker Smokeless Tobacco Status: No Alcohol use: Reports: none Drug use: Reports: none Physical Exam - General Limitations: no limitations General appearance: alert, in no apparent distress - Head Head exam: normocephalic - Eye Eye exam: Present: EOMI - ENT ENT exam: normal exam, normal oropharynx - Neck Neck exam: Present: trachea midline - Chest Chest inspection: Present: symmetric chest wall rise - Respiratory Respiratory exam: Present: normal lung sounds bilaterally. Absent: respiratory distress, accessory muscle use - Cardiovascular Cardiovascular exam: Present: tachycardia, irregular rhythm - Abdominal Exam Abdominal exam: Present: soft, tenderness. Absent: distention, guarding, rebound, rigidity Abdominal tenderness: Present: LLQ - Extremities Exam Extremities exam: Present: normal capillary refill - Neurological Exam Neurological exam: Present: alert, oriented X3 - Psychiatric Psychiatric exam: Present: normal affect, normal mood Course Vital Signs Temperature 97.9 F 05/30/18 19:34 Pulse Rate 97 05/30/18 19:34 Respiratory Rate 16 05/30/18 19:34 Blood Pressure 112/80 05/30/18 19:34 O2 Sat by Pulse Oximetry 94 05/30/18 19:34 Temperature 97.9 F 05/30/18 19:34 Pulse Rate 97 05/30/18 19:34 Respiratory Rate 16 05/30/18 19:34 Blood Pressure 112/80 05/30/18 19:34 O2 Sat by Pulse Oximetry 95 05/30/18 19:34 Oxygen Delivery Oxygen Delivery Room Air Medical Decision Making - [facility] Narrative Medical decision making narrative: 72-year-old male presents emergency department for generalized weakness, dry cough, left lower quadrant abdominal pain. Patient was in a multifocal tachycardia ranging from the 90s to the 130s. No ischemic ST changes were noted. Chest x-ray reveals cardiomegaly and possible infiltrate of the left basilar region of the lung. We obtained chest CT and this revealed multifocal groundglass attenuation bilaterally. At this time, patient has a leukocytosis of 16,000. He was reporting dry cough. He has been exposed to healthcare virus recently. We will cover for hospital-acquired pneumonia. Patient was given vancomycin, cefepime, azithromycin. CT scan of abdomen and pelvis also obtained as patient was having left lower quadrant pain. Did not reveal any acute intra-abdominal process. Patient's creatinine is 1.57. This is within his normal range. Patient is given a liter of fluid here in the emergency department. Urinalysis reveals moderate leukocyte esterase. Patient currently being cover for possible UTI at this time. Blood cultures have been obtained. I spoke with family and patient at bedside regarding disposition to the hospital. They agree with the plan. Patient was admitted to the hospitalist. Heart rate was in the 90s to low 100s. After admission, patient started having worsening of his heart rate with an irregular rhythm into the 130s. Patient was given 10 mg of Cardizem IV push followed by Cardizem drip. Chest X-Ray 05/30/18 19:28 IMPRESSION: 1. Cardiomegaly. 2. Calcific atherosclerosis aorta. 3. Focal left basilar atelectasis or infiltrate and small volume pleural effusion. Follow-up full inspiration PA and lateral chest may be useful for better characterization of pulmonary findings. D/ / Melchor Mercado / Melchor Mercado Interpreting Provider: Melchor Mercado Abdomen/Pelvis CT 05/30/18 19:56 IMPRESSION: 1. No acute intra-abdominal process identified. 2. Moderate hiatal hernia as noted on prior exam. D/ / Alonso Colindres MD / Alonso Colindres MD Interpreting Provider: Alonso Colindres MD Chest CT 05/30/18 21:13 IMPRESSION: Multifocal ground-glass attenuation is noted bilaterally. This is nonspecific and may represent subtle edema or hypersensitivity pneumonitis. Bronchiolitis not excluded Dependent atelectasis bilaterally. Small nodular densities are unchanged. Hiatal hernia is noted. Multiple small lymph nodes are again noted. D/ / John Mcdaniels / John Mcdaniels Interpreting Provider: John Mcdaniels Vital Signs Temperature 97.9 F 05/30/18 19:34 Pulse Rate 97 05/30/18 19:34 Respiratory Rate 16 05/30/18 19:34 Blood Pressure 112/80 05/30/18 19:34 O2 Sat by Pulse Oximetry 94 05/30/18 19:34 Temperature 97.9 F 05/30/18 19:34 Pulse Rate 97 05/30/18 19:34 Respiratory Rate 16 05/30/18 19:34 Blood Pressure 112/80 05/30/18 19:34 O2 Sat by Pulse Oximetry 95 05/30/18 19:34 Oxygen Delivery Oxygen Delivery Room Air - Lab Data Result diagrams: 05/30/18 19:48 05/30/18 19:48 Lab Results 05/30/18 05/30/18 05/30/18 Range/Units 19:48 19:48 19:48 WBC 16.0 H (4.3-11.1) K/mcL RBC 5.02 (4.19-5.50) M/mcL Hgb 13.0 (12.9-16.9) g/dL Hct 39.1 (37.5-50.1) % MCV 77.9 L (83.0-100.0) fL MCH 25.9 L (28.0-33.3) pg MCHC 33.2 (31.6-35.5) g/dL RDW 18.3 H (11.5-14.5) % Plt Count 418 H (140-400) K/mcL MPV 9.8 (9.4-12.4) fL Immature Gran % 0.7 (0-4) % Seg Neutrophils % 77.5 % Lymphocytes % 12.1 % Monocytes % 8.1 % Eosinophils % 1.1 % Basophils % 0.5 % Neutrophils # 12.4 H (1.6-8.9) K/mcL Lymphocytes # 1.9 (0.6-4.6) K/mcL Monocytes # 1.3 (0.0-1.3) K/mcL Eosinophils # 0.2 (0.0-0.6) K/mcL Basophils # 0.1 (0.0-0.2) K/mcL PT 13.3 H (9.4-12.1) Seconds INR 1.2 APTT 30.9 (26.0-36.0) Seconds Sodium 135 L (136-145) mEq/L Potassium 4.5 (3.5-5.1) mEq/L Chloride 104 (98-107) mEq/L Carbon Dioxide 20 L (23-29) mEq/L BUN 27 H (8-23) mg/dL Creatinine 1.57 H (0.70-1.30) mg/dL Est GFR ( Amer) 53 L (> 60) Est GFR (Non-Af Amer) 44 L (> 60) BUN/Creatinine Ratio 17 (6-26) Glucose 140 H (70-105) mg/dL Calculated Osmolality 287 (280-300) Calcium 7.4 L (8.6-10.3) mg/dL Total Bilirubin 0.4 (0.3-1.0) mg/dL Direct Bilirubin 0.3 H (0.0-0.2) mg/dL Indirect Bilirubin 0.1 (0.0-1.2) mg/dL AST 10 L (13-39) Units/L ALT 9 (7-52) Units/L Alkaline Phosphatase 93 (34-104) Units/L Ammonia (16-53) mcmol/L Troponin I < 0.03 (< 0.04) ng/mL Serum Total Protein 6.0 L (6.4-8.9) g/dL Albumin 3.0 L (3.5-5.7) g/dL Globulin 3.0 (2.4-3.5) g/dL Albumin/Globulin Ratio 1.0 L (1.1-2.2) Urine Color (Yellow) Urine Clarity (Clear) Urine pH (5.0-8.0) pH Units Ur Specific [place] (1.010-1.025) Urine Protein (Neg-Trace) mg/dL Urine Glucose (UA) (Normal) mg/dL Urine Ketones (Negative) mg/dL Urine Blood (Negative) Urine Nitrite (Negative) Urine Bilirubin (Negative) Urine Urobilinogen (Normal) mg/dL Ur Leukocyte Esterase (Negative) Urine Microscopic RBC (0-3) per hpf Urine Microscopic WBC (0-3) per hpf Ur Squamous Epith Cells (None-Few) per lpf Amorphous Sediment (Few) Urine Bacteria (None-Few) per hpf Ur Culture Indicated? (NO) Urine Opiates Screen (Pkxrdb=553) ng/mL Ur Barbiturates Screen (Jxjmxw=798) ng/mL Ur Phencyclidine Scrn (Cutoff=25) ng/mL Ur Amphetamines Screen (Kubzas=7045) ng/mL U Benzodiazepines Scrn (Cljcck=319) ng/mL Urine Cocaine Screen (Cutoff= 300) ng/mL U Marijuana (THC) Screen (Cutoff = 50) ng/mL Ur Drug Screen Interp Ethyl Alcohol < 10 (Less than 10) mg/dL 05/30/18 05/30/18 05/30/18 Range/Units 19:48 22:06 22:06 WBC (4.3-11.1) K/mcL RBC (4.19-5.50) M/mcL Hgb (12.9-16.9) g/dL Hct (37.5-50.1) % MCV (83.0-100.0) fL MCH (28.0-33.3) pg MCHC (31.6-35.5) g/dL RDW (11.5-14.5) % Plt Count (140-400) K/mcL MPV (9.4-12.4) fL Immature Gran % (0-4) % Seg Neutrophils % % Lymphocytes % % Monocytes % % Eosinophils % % Basophils % % Neutrophils # (1.6-8.9) K/mcL Lymphocytes # (0.6-4.6) K/mcL Monocytes # (0.0-1.3) K/mcL Eosinophils # (0.0-0.6) K/mcL Basophils # (0.0-0.2) K/mcL PT (9.4-12.1) Seconds INR APTT (26.0-36.0) Seconds Sodium (136-145) mEq/L Potassium (3.5-5.1) mEq/L Chloride (98-107) mEq/L Carbon Dioxide (23-29) mEq/L BUN (8-23) mg/dL Creatinine (0.70-1.30) mg/dL Est GFR ( Amer) (> 60) Est GFR (Non-Af Amer) (> 60) BUN/Creatinine Ratio (6-26) Glucose (70-105) mg/dL Calculated Osmolality (280-300) Calcium (8.6-10.3) mg/dL Total Bilirubin (0.3-1.0) mg/dL Direct Bilirubin (0.0-0.2) mg/dL Indirect Bilirubin (0.0-1.2) mg/dL AST (13-39) Units/L ALT (7-52) Units/L Alkaline Phosphatase (34-104) Units/L Ammonia 32 (16-53) mcmol/L Troponin I (< 0.04) ng/mL Serum Total Protein (6.4-8.9) g/dL Albumin (3.5-5.7) g/dL Globulin (2.4-3.5) g/dL Albumin/Globulin Ratio (1.1-2.2) Urine Color Yellow (Yellow) Urine Clarity Cloudy A (Clear) Urine pH 5.0 (5.0-8.0) pH Units Ur Specific [place] > 1.030 H (1.010-1.025) Urine Protein Negative (Neg-Trace) mg/dL Urine Glucose (UA) Normal (Normal) mg/dL Urine Ketones Negative (Negative) mg/dL Urine Blood Negative (Negative) Urine Nitrite Negative (Negative) Urine Bilirubin Negative (Negative) Urine Urobilinogen Normal (Normal) mg/dL Ur Leukocyte Esterase Moderate H (Negative) Urine Microscopic RBC 3-5 H (0-3) per hpf Urine Microscopic WBC 15-30 H (0-3) per hpf Ur Squamous Epith Cells Many H (None-Few) per lpf Amorphous Sediment Many H (Few) Urine Bacteria None Seen (None-Few) per hpf Ur Culture Indicated? NO. A (NO) Urine Opiates Screen Positive H (Eroprd=573) ng/mL Ur Barbiturates Screen Negative (Kieirv=057) ng/mL Ur Phencyclidine Scrn Negative (Cutoff=25) ng/mL Ur Amphetamines Screen Negative (Belsdp=8410) ng/mL U Benzodiazepines Scrn Negative (Ncjpmg=138) ng/mL Urine Cocaine Screen Negative (Cutoff= 300) ng/mL U Marijuana (THC) Screen Negative (Cutoff = 50) ng/mL Ur Drug Screen Interp See Below Ethyl Alcohol (Less than 10) mg/dL - EKG Data EKG #1 EKG attestation: Yes I reviewed and interpreted this EKG. EKG results narrative: 19:55 Ventricular rate 105 bpm, QRS duration 98 ms, QT 335 ms, QTC 396 ms, left axis deviation. This is a tachycardia with an irregularly irregular rhythm. There are P waves. There appears to be some premature atrial complexes as well. Also possible evidence of flutter waves. No evidence of any ischemic ST changes. Attestation Statement - Attestation Attestation: I, Vinay Jacobsen, examined this patient and my medical decision-making was reviewed with the [employer]ENT/PA/Advanced Practice Nurse/Resident Physician. I agree with the documented findings, disposition and treatment plan as described except to the extent set forth below. 72-year-old male presents emergency Department with concerns of increasing weakness and confusion. Family states the symptoms have been worsening over the past few days. Similar symptoms occurred last time he had a urinary tract infection. Patient does report an intermittent cough that is nonproductive. Patient otherwise denies chest pain, abdominal pain, diarrhea, specific area of pain during the exam. CT of the chest abdomen pelvis does not reveal acute surgical pathology however he does have possible multifocal airspace disease concerning for possible pneumonia. We will treat for healthcare associated pneumonia as he has been recently admitted to the hospital. Urinalysis is pending at this time. Patient will be admitted to hospital for further care and evaluation.
[2018-05-30] MEDS ORDERED: Isovue-370 500 ML INFUS..BTL IV ONE (19:56)
[2018-05-30 20:03] LABS: Basophils # 0.1 K/mcL (0.0-0.2); Basophils % 0.5 %; Eosinophils # 0.2 K/mcL (0.0-0.6); Eosinophils % 1.1 %; Hematocrit 39.1 % (37.5-50.1); Immature Granulocytes % 0.7 % (0-4); Lymphocytes # 1.9 K/mcL (0.6-4.6); Lymphocytes % 12.1 %; Mean Corpuscular HGB Conc 33.2 g/dL (31.6-35.5); Mean Corpuscular Hemoglobin 25.9 pg (28.0-33.3); Mean Corpuscular Volume 77.9 fL (83.0-100.0); Mean Platelet Volume 9.8 fL (9.4-12.4); Monocytes # 1.3 K/mcL (0.0-1.3); Monocytes % 8.1 %; Neutrophils # 12.4 K/mcL (1.6-8.9); Platelet Count 418 K/mcL (140-400); Red Blood Count 5.02 M/mcL (4.19-5.50); Red Cell Distribution Width 18.3 % (11.5-14.5); Segmented Neutrophils % 77.5 %
[2018-05-30] MEDS ORDERED: 0.9 % Sodium Chloride 1,000 ML IVC ONE (20:03)
[2018-05-30 20:10] LABS: INR 1.2; Prothrombin Time 13.3 Seconds (9.4-12.1)
[2018-05-30 20:13] LABS: Activated Partial Thrombo Time 30.9 Seconds (26.0-36.0)
[2018-05-30 20:24] LABS: Alanine Aminotransferase 9 Units/L (7-52); Alkaline Phosphatase 93 Units/L (34-104); Aspartate Amino Transferase 10 Units/L (13-39); BUN/Creatinine Ratio 17 (6-26); Bilirubin,Direct 0.3 mg/dL (0.0-0.2); Bilirubin,Indirect 0.1 mg/dL (0.0-1.2); Bilirubin,Total 0.4 mg/dL (0.3-1.0); Blood Urea Nitrogen 27 mg/dL (8-23); Calcium 7.4 mg/dL (8.6-10.3); Carbon Dioxide 20 mEq/L (23-29); Chloride 104 mEq/L (98-107); Ethanol < 10 mg/dL (Less than 10); Glucose 140 mg/dL (70-105); Osmolality,Calculated 287 (280-300); Potassium 4.5 mEq/L (3.5-5.1); Sodium 135 mEq/L (136-145); Troponin I < 0.03 ng/mL (< 0.04); eGFR For African Americans 53 (> 60); eGFR For Non-African Americans 44 (> 60)
[2018-05-30] MEDS ORDERED: Cefepime HCl 2,000 MG in 0.9 % Sodium Chloride Mini Bag 100 ML IVPB STA (22:08)
[2018-05-30] MEDS ORDERED: Azithromycin 500 MG in D5% in Water 250 ML IVPB ONE (22:09)
[2018-05-30 22:13] LABS: Bilirubin,Urine Negative (Negative); Blood,Urine Negative (Negative); Clarity,Urine Cloudy (Clear); Color,Urine Yellow (Yellow); Glucose,Urine (UA) Normal (Normal); Ketones,Urine Negative (Negative); Leukocyte Esterase,Urine Moderate (Negative); Nitrite,Urine Negative (Negative); Protein,Urine Negative (Neg-Trace); Specific Gravity,Urine > 1.030 (1.010-1.025); Urobilinogen,Urine Normal (Normal)
[2018-05-30 22:15] LABS: Bacteria,Urine None Seen per hpf (None-Few); Squamous Epithelial Cell,Urine Many per lpf (None-Few); WBC,Urine 15-30 per hpf (0-3)
[2018-05-30 22:31] LABS: Amorphous Sediment,Urine Many (Few)
[2018-05-30 22:42] LABS: Amphetamine Screen,Urine Negative ng/mL (Cutoff=1000); Barbiturate Screen,Urine Negative ng/mL (Cutoff=200); Benzodiazepines Screen,Urine Negative ng/mL (Cutoff=200); Cannabinoid Screen,Urine Negative ng/mL (Cutoff = 50); Cocaine Screen,Urine Negative ng/mL (Cutoff= 300); Opiate Screen,Urine Positive ng/mL (Cutoff=300); Phencyclidine Screen,Urine Negative ng/mL (Cutoff=25)
--- NOTE | 2018-05-30 22:54 | Internal Med History&Physical ---
<Jeovanny Clark - Last Filed: 05/31/18 00:48> Date of Encounter: 05/31/18 Time of Encounter: 22:49 Internal Medicine - H&P: HPI Chief complaint: Weakness Admitted From: Home History of present illness: Mr. Jimenez is a 72 year old male with a past medical history of atrial fibrillation, esophageal cancer, CHF, COPD, diabetes, GERD, hypertension, hyperlipidemia, CKD stage III, and moderate protein calorie malnutrition who presents secondary to weakness and deconditioning for the past couple of weeks per family. Patient has had about 40 Lbs weight loss over last 6 months and is too weak to undergo chemo-radiation per oncologist. The family reports patient has a decubitus ulcer on sacrum secondary to immobilization, and history of urinary incontinence with indwelling Adame and MRSA bacteremia in the past. Patient reports occasional shortness of breath and dry cough. He denies chest pain, sputum production, nausea, vomiting, diarrhea, or leg edema. Patient was previously on Xarelto, but he is not on anticoagulation for atrial fibrillation due to history of GI bleed. Past Med Surg Social Fam HX - Past Medical History Medical history: atrial fibrillation, cancer, CHF, COPD, diabetes, GERD, hyperlipidemia, hypertension, malignancy, venous stasis Additional medical history: esphogeal cancer Psychiatric history: anxiety - Past Surgical History Surgical History: appendectomy, cholecystectomy, herniorrhaphy, knee replacement Additional surgical history: Bilateral knee replacement - Social History Smoking Status: Never smoker Smokeless Tobacco Status: No Alcohol use: none Drug use: none - Family History Mother Living Status: Hx Family Cardiac Disorders: Yes (HTN) Father Living Status: Hx Family Cardiac Disorders: Yes (CHF, HTN) Hx Family Respiratory Disorders: No Hx Family Cancer: No Hx Family Endocrine Disorder: No Internal Medicine - H&P: Meds Furosemide [Lasix] 20 mg PO BID 03/29/18 [History] Metformin HCl [Metformin HCl ER] 1,000 mg PO BID 03/29/18 [History] Metoprolol Succinate [Toprol Xl] 50 mg PO DAILY 03/29/18 [History] Omeprazole [PriLOSEC] 40 mg PO DAILY 03/29/18 [History] Oxybutynin Chloride [Ditropan Xl] 15 mg PO DAILY 03/29/18 [History] SitaGLIPtin [Januvia] 100 mg PO DAILY 03/29/18 [History] Tramadol HCl [Ultram] 50 mg PO TID PRN 03/29/18 [History] Diltiazem CD (24hr) [Cardizem CD] 120 mg PO DAILY #30 cap.er.24h 04/05/18 [Rx] Mirtazapine [Remeron] 15 mg PO HS #30 tablet 05/04/18 [Rx] 3 Allergy/AdvReac Type Severity Reaction Status Date / Time No Known Allergies Allergy Verified 04/13/18 08:45 All Systems PM: A 10-system review of systems was performed and is negative for pertinent findings except as documented above in the HPI. - Constitutional Constitutional: fatigue, lethargy, weakness, weight loss, no chills, no fever(s) , no weight gain - EENT Eyes: no blurry vision, no diplopia Nose, mouth and throat: dysphagia, no sinus pain, no sore throat - Cardiovascular Cardiovascular ROS IM: no chest pain, no palpitations - Respiratory Respiratory: dyspnea, no cough, no chest congestion - Gastrointestinal Gastrointestinal: heartburn, no abdominal pain, no diarrhea, no melena, no nausea, no vomiting - Genitourinary Genitourinary ROS male: no difficulty urinating, no hematuria, no urinary frequency, no urinary urgency - Musculoskeletal Musculoskeletal ROS IM: no back pain, no limited range of motion, no numbness, no tingling - Integumentary Integumentary IM: erythema, skin ulcer, no rash, no jaundice - Neurological Neurological ROS: confusion, dizziness, weakness, no numbness, no tingling - Psychiatric Psychiatric: confusion, no anxiety, no depression - Endocrine Endocrine IM: no polydipsia, no polyphagia, no polyuria - Hematologic/Lymphatic Hematologic/Lymphatic: no easy bleeding, no easy bruising - Allergic/Immunologic Allergic/Immunologic: no wheezing - Constitutional Vitals: Temp Pulse Resp BP Pulse Ox 97.9 F 97 16 112/80 95 05/30/18 19:34 05/30/18 19:34 05/30/18 19:34 05/30/18 19:34 05/30/18 19:34 General appearance: Present: cooperative, A&O X 2, pleasant, no acute distress, obese - Head Head exam: Present: atraumatic, normocephalic - Eye Eye exam: Present: PERRL, conjuntiva pink, sclera anicteric Pupils: Present: PERRL - ENT ENT exam: Present: mucous membranes dry, normal oropharynx Additional comments: Temporal wasting - Neck Neck exam general surgery: Present: supple, trachea midline. Absent: lymphadenopathy - Respiratory Respiratory exam: Present: decreased breath sounds. Absent: accessory muscle use, rales, rhonchi, wheezes - Cardiovascular Cardiovascular exam: Present: irregular rhythm, +S1, +S2. Absent: diastolic murmur, gallop, rubs, systolic murmur - GI/Abdominal GI/Abdominal exam: Present: normal bowel sounds, soft, no peritoneal signs. Absent: distended, guarding, tenderness - Extremities Exam Extremities exam: Present: warm, radial pulses palpable and symmetrical. 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 Absent: paraspinal tenderness, tenderness - Neurological Exam Neurological exam: Present: altered, CN II-XII intact, no focal deficits, strengths equal and symetr throughout. Absent: pronater drift, facial droop, speech deficit - Psychiatric Psychiatric exam: Present: flat affect, normal mood - Skin Skin exam: Present: erythema (Stage I sacral decubitus ulcer), intact, pallor, warm Internal Med - H&P Results - Labs CBC & Chem 7: 05/30/18 19:48 05/30/18 19:48 Labs: Short CBC 05/30/18 Range/Units 19:48 WBC 16.0 H (4.3-11.1) K/mcL Hgb 13.0 (12.9-16.9) g/dL Hct 39.1 (37.5-50.1) % Plt Count 418 H (140-400) K/mcL Neutrophils # 12.4 H (1.6-8.9) K/mcL BMP 05/30/18 19:48 Sodium 135 L Potassium 4.5 Chloride 104 Carbon Dioxide 20 L BUN 27 H Creatinine 1.57 H Glucose 140 H Calcium 7.4 L Cardiac Enzymes 05/30/18 Range/Units 19:48 Troponin I < 0.03 (< 0.04) ng/mL Liver Function 05/30/18 Range/Units 19:48 Total Bilirubin 0.4 (0.3-1.0) mg/dL Direct Bilirubin 0.3 H (0.0-0.2) mg/dL AST 10 L (13-39) Units/L ALT 9 (7-52) Units/L Alkaline Phosphatase 93 (34-104) Units/L Albumin 3.0 L (3.5-5.7) g/dL Urine 05/30/18 Range/Units 22:06 Urine Color Yellow (Yellow) Urine Clarity Cloudy A (Clear) Urine pH 5.0 (5.0-8.0) pH Units Ur Specific [place] > 1.030 H (1.010-1.025) Urine Protein Negative (Neg-Trace) mg/dL Urine Glucose (UA) Normal (Normal) mg/dL - Pulse Oximetry Interpretation Digit-Finger O2 Sat by Pulse Oximetry: 95 (On room air) - Impressions ITS Impressions Chest X-Ray 05/30/18 19:28 IMPRESSION: 1. Cardiomegaly. 2. Calcific atherosclerosis aorta. 3. Focal left basilar atelectasis or infiltrate and small volume pleural effusion. Follow-up full inspiration PA and lateral chest may be useful for better characterization of pulmonary findings. D/ / Melchor Mercado / Melchor Mercado Interpreting Provider: Melchor Mercado Abdomen/Pelvis CT 05/30/18 19:56 IMPRESSION: 1. No acute intra-abdominal process identified. 2. Moderate hiatal hernia as noted on prior exam. D/ / Alonso Colindres MD / Alonso Colindres MD Interpreting Provider: Alonso Colindres MD Chest CT 05/30/18 21:13 IMPRESSION: Multifocal ground-glass attenuation is noted bilaterally. This is nonspecific and may represent subtle edema or hypersensitivity pneumonitis. Bronchiolitis not excluded Dependent atelectasis bilaterally. Small nodular densities are unchanged. Hiatal hernia is noted. Multiple small lymph nodes are again noted. D/ / John Mcdaniels / John Mcdaniels Interpreting Provider: John Mcdaniels - Assessment and plan (1) Hospital-acquired pneumonia Current Visit: Yes Status: Acute Assessment and plan: Patient with shortness of breath, cough, leukocytosis white blood count 16,000, and recent hospitalization 2 months ago CXR reveals focal left basilar atelectasis or infiltrate and small volume pleural effusion. CT chest reveals multifocal ground-glass attenuation is noted bilaterally. This is nonspecific and may represent subtle edema or hypersensitivity pneumonitis. Bronchiolitis not excluded Blood cultures pending Urine Legionella and strep pneumo antigens pending Procal level pending Continue empiric antibiotics Speech therapy evaluation to rule out aspiration Deescalate antibiotics based on culture results Encourage incentive spirometry (2) Atrial fibrillation with RVR Current Visit: Yes Status: Acute Assessment and plan: After admission, patient started having worsening of his heart rate with an irregular rhythm into the 130s. Patient was given 10 mg of Cardizem IV push followed by Cardizem drip. Patient was previously on Xarelto, but he is not on anticoagulation for atrial fibrillation due to history of GI bleed. Resume home metoprolol and Cardizem (3) Acute encephalopathy Current Visit: Yes Status: Acute Assessment and plan: Patient with weakness and confusion per family Nothing by mouth Speech therapy evaluation to rule out aspiration (4) Esophageal cancer Current Visit: Yes Status: Chronic Assessment and plan: Patient has had about 40 Lbs weight loss over last 6 months and is too weak to undergo chemo-radiation per oncologist. Nothing by mouth Speech therapy consulted Continue pain control Qualifiers: Malignant neoplasm of esophagus location: lower third Qualified Code(s): C15.5 - Malignant neoplasm of lower third of esophagus (5) CKD (chronic kidney disease) stage 3, GFR 30-59 ml/min Current Visit: Yes Status: Chronic Assessment and plan: Patient with chronically worsening renal function Continue gentle hydration Hold Lasix Consider nephrology consult if renal function continues to decline (6) Diastolic CHF, chronic Current Visit: No Status: Chronic Assessment and plan: Not in acute exacerbation Last echo 01/16/18 revealed LVEF 60-65%, mild LV diastolic dysfunction, no valvular dysfunction, no pulmonary hypertension Patient given IV fluids in the ED CXR reveals focal left basilar atelectasis or infiltrate and small volume pleural effusion. Hold Lasix Continue home beta anastacio (7) Diabetes mellitus Current Visit: No Status: Chronic Assessment and plan: Lower A1c level .9 on 05/19/18 Continue SSI Monitor blood glucose levels every 6 hours, change to ACHS after patient is back on ADA diet Qualifiers: Diabetes mellitus type: type 2 Diabetes mellitus buttermaker helper insulin use: without snf use Diabetes mellitus complication status: with circulatory complication Diabetes mellitus complication detail: with other circulatory complications Qualified Code(s): E11.59 - Type 2 diabetes mellitus with other circulatory complications (8) Hypertension Current Visit: No Status: Chronic Assessment and plan: Continue home meds Qualifiers: Hypertension type: essential hypertension Qualified Code(s): I10 - Essential (primary) hypertension (9) Hyperlipidemia Current Visit: No Status: Chronic Assessment and plan: Continue home meds Qualifiers: Hyperlipidemia type: unspecified Qualified Code(s): E78.5 - Hyperlipidemia , unspecified (10) Protein-calorie malnutrition, moderate Current Visit: Yes Status: Chronic Assessment and plan: Patient with significant weight loss in the setting of esophageal cancer Nutrition consulted Continue dietary supplementation (11) Sacral decubitus ulcer Current Visit: Yes Status: Acute Assessment and plan: Turn patient every 2 hours Wound care consulted Qualifiers: Pressure injury stage: stage 1 Qualified Code(s): L89.151 - Pressure ulcer of sacral region, stage 1 (12) Venous stasis dermatitis of both lower extremities Current Visit: No Status: Chronic Assessment and plan: Continue monitoring (13) DVT prophylaxis Current Visit: Yes Status: Acute Assessment and plan: Heparin subcutaneous TID (14) Acute on chronic respiratory failure with hypoxia and hypercapnia Current Visit: Yes Status: Acute Assessment and plan: Patient with acute respiratory distress, tachypnea, and hypoxemia, SpO2 81% on room air Patient wears 2 L supplemental oxygen at night at baseline Patient's previous ABG revealis hypercapnia Patient started on 4 L of oxygen with improvement in O2 sat Start Xopenex and Ipratropium breathing treatments scheduled every 6 hours, avoid Duoneb secondary to A-fib RVR Continue treatment for pneumonia - Time Spent With Patient Total time spent is greater than 50% in coordination of care (as documented) at patient's floor/unit and/or counseling patient: <Jude Yi T - Last Filed: 05/31/18 03:03> Date of Encounter: 05/31/18 Internal Medicine - H&P: HPI History of present illness: Mr. Jimenez is a 72 year old male All Systems PM: A 10-system review of systems was performed and is negative for pertinent findings except as documented above in the HPI. - Constitutional Vitals: Temp Pulse Resp BP Pulse Ox 97.6 F 118 18 118/89 96 05/31/18 02:40 05/31/18 02:40 05/31/18 02:40 05/31/18 02:40 05/31/18 02:40 Internal Med - H&P Results - Labs CBC & Chem 7: 05/30/18 19:48 05/30/18 19:48 - Attending Attestation I have independently seen and examined this patient at bedside in the emergency room along with family members. Most of the history is obtained from the family members. Plan of care is as detailed in the resident physician's documentation, which i have reviewed and agree with - Assessment and plan (1) Esophageal cancer Current Visit: Yes Status: Chronic Qualifiers: Malignant neoplasm of esophagus location: lower third Qualified Code(s): C15.5 - Malignant neoplasm of lower third of esophagus (2) Atrial fibrillation with RVR Current Visit: Yes Status: Acute (3) Diabetes mellitus Current Visit: No Status: Chronic Qualifiers: Diabetes mellitus type: type 2 Diabetes mellitus snf insulin use: without snf use Diabetes mellitus complication status: with circulatory complication Diabetes mellitus complication detail: with other circulatory complications Qualified Code(s): E11.59 - Type 2 diabetes mellitus with other circulatory complications (4) Hypertension Current Visit: No Status: Chronic Qualifiers: Hypertension type: essential hypertension Qualified Code(s): I10 - Essential (primary) hypertension (5) Venous stasis dermatitis of both lower extremities Current Visit: No Status: Chronic (6) DVT prophylaxis Current Visit: Yes Status: Acute (7) Protein-calorie malnutrition, moderate Current Visit: Yes Status: Chronic (8) Hospital-acquired pneumonia Current Visit: Yes Status: Acute (9) Hyperlipidemia Current Visit: No Status: Chronic Qualifiers: Hyperlipidemia type: unspecified Qualified Code(s): E78.5 - Hyperlipidemia , unspecified (10) CKD (chronic kidney disease) stage 3, GFR 30-59 ml/min Current Visit: Yes Status: Chronic (11) Acute encephalopathy Current Visit: Yes Status: Acute (12) Diastolic CHF, chronic Current Visit: No Status: Chronic (13) Sacral decubitus ulcer Current Visit: Yes Status: Acute Qualifiers: Pressure injury stage: stage 1 Qualified Code(s): L89.151 - Pressure ulcer of sacral region, stage 1 (14) Acute on chronic respiratory failure with hypoxia and hypercapnia Current Visit: Yes Status: Acute - Time Spent With Patient Total time spent is greater than 50% in coordination of care (as documented) at patient's floor/unit and/or counseling patient:
[2018-05-30] MEDS ORDERED: Acetaminophen 325 MG TABLET PO PRN (23:13)
[2018-05-30] MEDS ORDERED: Naloxone 0.4 MG/ML INJ IVP PRN (23:13)
[2018-05-30] MEDS ORDERED: levoFLOXacin 750 MG TABLET PO SCH (23:15)
[2018-05-30] MEDS ORDERED: 0.9 % Sodium Chloride 1,000 ML IVC SCH (23:15)
[2018-05-30] MEDS ORDERED: Dextrose Gel 15 GM/37.5 ML TUBE PO PRN ×2 (23:30)
[2018-05-30] MEDS ORDERED: *HR* Dextrose 50 % in Water (Syg) 50 ML SYRINGE IVP PRN (23:30)
[2018-05-30] MEDS ORDERED: D5% in Water 1,000 ML IVC PRN (23:30)
[2018-05-30] MEDS ORDERED: Vancomycin (wt based) 1,000 MG VIAL IVPB SCH (23:45)
[2018-05-31] MEDS: Ipratropium 1 PUFF INHALER IH SCH ×5 (00:15→22:36)
[2018-05-31] MEDS: Levalbuterol Neb 0.63 MG/3 ML IH SCH ×5 (00:15→22:35)
[2018-05-31] MEDS: Insulin LISPRO 300 UNITS/3 ML VIAL SQ SCH ×6 (03:00→20:26)
[2018-05-31] MEDS ORDERED: traMADol 50 MG TABLET PO PRN (03:04)
[2018-05-31] MEDS: Piperacillin/Tazobactam 3.375 GM in 0.9 % Sodium Chloride Mini Bag 100 ML IVPB SCH ×4 (03:10→22:50)
[2018-05-31 05:03] LABS: Basophils # 0.1 K/mcL (0.0-0.2); Basophils % 0.4 %; Eosinophils # 0.1 K/mcL (0.0-0.6); Hematocrit 37.1 % (37.5-50.1); Hemoglobin 11.5 g/dL (12.9-16.9); Immature Granulocytes % 0.8 % (0-4); Lymphocytes # 1.5 K/mcL (0.6-4.6); Lymphocytes % 10.6 %; Mean Corpuscular Hemoglobin 25.2 pg (28.0-33.3); Mean Corpuscular Volume 81.4 fL (83.0-100.0); Mean Platelet Volume 9.8 fL (9.4-12.4); Monocytes # 1.1 K/mcL (0.0-1.3); Monocytes % 7.6 %; Neutrophils # 10.9 K/mcL (1.6-8.9); Platelet Count 356 K/mcL (140-400); Red Blood Count 4.56 M/mcL (4.19-5.50); Red Cell Distribution Width 18.1 % (11.5-14.5); Segmented Neutrophils % 79.6 %
[2018-05-31 05:34] LABS: BUN/Creatinine Ratio 16 (6-26); Blood Urea Nitrogen 23 mg/dL (8-23); Calcium 6.9 mg/dL (8.6-10.3); Carbon Dioxide 22 mEq/L (23-29); Chloride 105 mEq/L (98-107); Glucose 112 mg/dL (70-105); Magnesium < 0.5 mg/dL (1.6-2.6); Osmolality,Calculated 284 (280-300); Potassium 4.3 mEq/L (3.5-5.1); Sodium 135 mEq/L (136-145); eGFR For African Americans 60 (> 60); eGFR For Non-African Americans 49 (> 60)
[2018-05-31] MEDS: Pantoprazole 40 MG VIAL IVP SCH ×2 (07:26→19:24)
[2018-05-31] MEDS: *HR* Heparin 5,000 UNIT/ML VIAL SQ SCH ×3 (07:28→22:51)
[2018-05-31] MEDS: Metoprolol XL (24 HR) Succ 50 MG TAB.ER.24H PO SCH (09:34)
[2018-05-31] MEDS: Diltiazem CD (24hr) 120 MG CAPSULE PO SCH (09:34)
[2018-05-31] MEDS: Cholecalciferol (D-3) 1,000 UNIT TABLET PO SCH (09:34)
[2018-05-31] MEDS: Triamcinolone Acet 0.1% CRM 15 GM TUBE TP SCH (09:35)
--- NOTE | 2018-05-31 10:36 | Internal Med Progress Note ---
Date of Encounter: 05/31/18 Time of Encounter: 10:32 - Assessment and plan (1) Sepsis Current Visit: Yes Status: Acute Assessment and plan: sepsis from pneumonia, with WBC 16 k, HR >90, improving with ATB Qualifiers: Sepsis type: sepsis due to unspecified organism Qualified Code(s): A41.9 - Sepsis, unspecified organism (2) Atrial fibrillation with RVR Current Visit: Yes Status: Acute Assessment and plan: improved with oral home meds, d/c cardiazem drip (3) Esophageal cancer Current Visit: Yes Status: Chronic Assessment and plan: consult oncology Qualifiers: Malignant neoplasm of esophagus location: lower third Qualified Code(s): C15.5 - Malignant neoplasm of lower third of esophagus (4) Hospital-acquired pneumonia Current Visit: Yes Status: Acute Assessment and plan: negative strep leginella, continue vanco, zosyn and levaquin (5) CKD (chronic kidney disease) stage 3, GFR 30-59 ml/min Current Visit: Yes Status: Chronic Assessment and plan: CKD III satble , continue IVF (6) Acute encephalopathy Current Visit: Yes Status: Acute Assessment and plan: from pneumonia, improved (7) Diastolic CHF, chronic Current Visit: No Status: Chronic (8) Diabetes mellitus Current Visit: Yes Status: Chronic Assessment and plan: continue SSI Qualifiers: Diabetes mellitus type: type 2 Diabetes mellitus custodial insulin use: without custodial use Diabetes mellitus complication status: with circulatory complication Diabetes mellitus complication detail: with other circulatory complications Qualified Code(s): E11.59 - Type 2 diabetes mellitus with other circulatory complications - Time Spent With Patient Total time spent is greater than 50% in coordination of care (as documented) at patient's floor/unit and/or counseling patient: 25 - 35 minutes - Subjective Interval history: Mr. Jimenez is a 72 year old male with a past medical history of atrial fibrillation, esophageal cancer, CHF, COPD, diabetes, GERD, hypertension, hyperlipidemia, CKD stage III, and moderate protein calorie malnutrition who presents secondary to weakness and deconditioning for the past couple of weeks per family. Patient has had about 40 Lbs weight loss over last 6 months and is too weak to undergo chemo-radiation per oncologist. The family reports patient has a decubitus ulcer on sacrum secondary to immobilization, and history of urinary incontinence with indwelling Adame and MRSA bacteremia in the past. Patient reports occasional shortness of breath and dry cough. He denies chest pain, sputum production, nausea, vomiting, diarrhea, or leg edema. Patient was previously on Xarelto, but he is not on anticoagulation for atrial fibrillation due to history of GI bleed. he was admitted for hospital associated pneumonia, atrial fibrillation was RVR. Patient is doing well, afebrile, WBC trending down. He is on 2 L nasal cannula O2 sats 96%. Patient was recently diagnosis esophageal cancer follow-up with Dr. Hernandez. He said he has appointment with Dr. Hernandez today. We will consult oncologist. Atrial fibrillation RVR, heart rate has been better controlled and will DC Cardizem drip continue home medications - Constitutional Vitals: Temp Pulse Resp BP Pulse Ox 98.3 F 100 16 106/76 96 05/31/18 07:29 05/31/18 09:00 05/31/18 09:00 05/31/18 09:00 05/31/18 09:00 General appearance: Present: cooperative, A&O X 2, pleasant, no acute distress, obese Exam: CONSTITUTIONAL: patient appears as an age appropriate male in no acute distress. EYES Clear sclerae, bilateral pupils are equal, reactive to light. EMOI. RESPIRATORY: No accessory muscle use, bilateral crackles/rales. CARDIOVASCULAR: Regular heart rate, normal S1 and S2, no murmurs GASTROINTESTINAL: bowel sounds present, soft, no tenderness. MUSCULOSKELETAL: Joints in normal range of motion, no clubbing, no edema, no cyanosis. Bilateral peripheral pulses 2+. NEUROLOGIC: CN II to XII are grossly intact, no focal neurological deficit. Internal Medicine: Result - Labs CBC & Chem 7: 05/31/18 04:43 05/31/18 04:43 Labs: Short CBC 05/31/18 Range/Units 04:43 WBC 13.7 H (4.3-11.1) K/mcL Hgb 11.5 L D (12.9-16.9) g/dL Hct 37.1 L (37.5-50.1) % Plt Count 356 (140-400) K/mcL Neutrophils # 10.9 H (1.6-8.9) K/mcL BMP 05/31/18 04:43 Sodium 135 L Potassium 4.3 Chloride 105 Carbon Dioxide 22 L BUN 23 Creatinine 1.42 H Glucose 112 H Calcium 6.9 L - ABG Interpretation ABG results: PT/INR, D-dimer PT 13.3 Seconds (9.4-12.1) H 05/30/18 19:48 Consult Discharge Plan - Plan Referrals: Bulmaro Negro MD [Primary Care Provider] -
--- NOTE | 2018-05-31 17:27 | Oncology Inp Consult Note ---
Date of Encounter: 06/01/18 Time of Encounter: 17:24 Assessment and Plan (1) Esophageal cancer Status: Chronic Assessment and plan: Since diagnosis, Mr. Jimenez has had a complicated road to treatment secondary to multiple hospitalizations, comorbidities, acute infections and continued decline in functional status. During the time period since his diagnosis, he has not been physically strong nor medically stable enough to be able to initiate treatment. Hospice has been discussed on multiple occasions and Mr. Jimenez has continued to pursue rehabilitation with the hopes to regain his strength. In speaking with the patient and family today, unfortunately his physical performance status has further declined more recently. He has been unable to get out of the bed or chair for multiple days now and unable to perform any of his ADL's without assistance of his . Discussed case with Dr. Hernandez, treating oncologist, at this time the recommendation would be hospice as patients performance status does not allow for chemoradiation treatments. Hospice would give the patient and family the support needed along with good quality of life and hopefully decrease number of hospitalizations for Mr. Jimenez as the goal would then be to spend more time with family/friends in the comfort of his home. 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 The hospice philosophy was discussed, palliative care consult has been placed. Appreciate further recommendation per palliative care team. At this time, oncology will sign off. Please feel free to contact for any other questions or concerns. 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 He is not a good surgical candidate per surgical oncology evaluation. He was initially planned to start concurrent chemoadiotherapy with carboplatin/paclitaxel, however, he has had multiple hospital admissions and comorbidities which have complicated his course to even starting treatment. He has been participating in therapy with the hopes to regain strength to start treatment. At his last visit with Dr. Hernandez on 05/04/18, he was still unable to perform most of his ADL's without assistance of his and he was unsure about his own wishes in regard to pursuit of treatment. The hospice philosophy was introduced. He was planned to return to see Dr. Hernandez today to discuss his physical state and plans for future treatment versus hospice. Mr. Jimenez presented to [facility] ED with weakness and debilitation. He has been admitted with sepsis, hospital acquired pneumonia and A-fib with RVR. Past Med Surg Social Fam HX - Past Medical History Medical history: atrial fibrillation, cancer, CHF, COPD, diabetes, GERD, hyperlipidemia, hypertension, malignancy, venous stasis Additional medical history: esphogeal cancer Psychiatric history: anxiety - Past Surgical History Surgical History: appendectomy, cholecystectomy, herniorrhaphy, knee replacement Additional surgical history: Bilateral knee replacement - Social History Smoking Status: Never smoker Smokeless Tobacco Status: No Alcohol use: none Drug use: none - Family History Mother Living Status: Hx Family Cardiac Disorders: Yes (HTN) Father Living Status: Hx Family Cardiac Disorders: Yes (CHF, HTN) Hx Family Respiratory Disorders: No Hx Family Cancer: No Hx Family Endocrine Disorder: No Medications and Allergies Metformin HCl [Metformin HCl ER] 1,000 mg PO BID 03/29/18 [History] Metoprolol Succinate [Toprol Xl] 50 mg PO DAILY 03/29/18 [History] Omeprazole [PriLOSEC] 40 mg PO BIDWM 03/29/18 [History] Oxybutynin Chloride [Ditropan Xl] 15 mg PO DAILY 03/29/18 [History] SitaGLIPtin [Januvia] 100 mg PO DAILY 03/29/18 [History] Tramadol HCl [Ultram] 50 mg PO TID PRN 03/29/18 [History] Diltiazem CD (24hr) [Cardizem CD] 120 mg PO DAILY #30 cap.er.24h 04/05/18 [Rx] Mirtazapine [Remeron] 15 mg PO HS #30 tablet 05/04/18 [Rx] Ammonium Lactate [Amlactin] 1 appl TP DAILY 05/31/18 [History] Cholecalciferol (Vitamin D3) [Vitamin D] 50,000 unit PO QWEEK 05/31/18 [History] OxyCODONE/APAP 5/325 [Percocet 5/325 MG] 1 each PO Q6HR PRN 05/31/18 [History] Potassium Chloride [K-Tab ER] 10 meq PO DAILY 05/31/18 [History] Triamcinolone Acet 0.1% CRM [Kenalog] 1 appl TP DAILY 05/31/18 [History] 3 Allergy/AdvReac Type Severity Reaction Status Date / Time No Known Allergies Allergy Verified 04/13/18 08:45 Constitutional: Present: anorexia, fatigue, malaise, weakness, weight loss. Absent: chills, fever(s) Eyes: Absent: change in vision Nose, mouth and throat: Present: dysphagia, odynophagia Cardiovascular: Absent: chest pain, palpitations Respiratory: Present: cough, dyspnea Additional comments: diffuse pain secondary to chronic hernias per patient Genitourinary: urinary incontinence Musculoskeletal: Present: muscle weakness Additional comments: decubitus ulcer Neurological: Present: confusion (intermittent confusion). Absent: focal weakness, frequent falls Psychiatric: Present: change in appetite Hematologic/Lymphatic: Present: as per HPI Oncology - Exam - Constitutional Vitals: Temp Pulse Resp BP Pulse Ox 98.3 F 73 18 115/69 100 05/31/18 17:08 05/31/18 17:08 05/31/18 17:08 05/31/18 17:08 05/31/18 17:08 General appearance: cooperative, disheveled, no acute distress, no febrile Exam: chronically ill appearing - Head Head exam: Present: atraumatic - ENT ENT exam: Present: mucous membranes moist - Respiratory Respiratory exam: Present: decreased breath sounds, CTAB. Absent: respiratory distress - Cardiovascular Cardiovascular exam: Present: irregular rhythm, tachycardia - GI/Abdominal GI/Abdominal exam: Present: normal bowel sounds, soft, tenderness. Absent: guarding, rebound - Extremities Exam Extremities exam: Absent: calf tenderness Additional comments: 2+ pitting edema, chronic discoloration to BLE - Neurological Exam Neurological exam: Present: alert, oriented X3, no focal deficits, strengths equal and symetr throughout - Psychiatric Psychiatric exam: Present: flat affect - Skin Skin exam: Present: dry, normal color, warm Additional comments: decubitus ulcer to sacram/coccyx, not observed on this assessment Oncology - Results Labs: 3 05/31/18 05/31/18 04:43 04:43 WBC 13.7 H RBC 4.56 Hgb 11.5 L D Hct 37.1 L MCV 81.4 L MCH 25.2 L MCHC 31.0 L RDW 18.1 H Plt Count 356 MPV 9.8 Immature Gran % 0.8 Seg Neutrophils % 79.6 Lymphocytes % 10.6 Monocytes % 7.6 Eosinophils % 1.0 Basophils % 0.4 Neutrophils # 10.9 H Lymphocytes # 1.5 Monocytes # 1.1 Eosinophils # 0.1 Basophils # 0.1 Sodium 135 L Potassium 4.3 Chloride 105 Carbon Dioxide 22 L BUN 23 Creatinine 1.42 H Est GFR ( Amer) 60 Est GFR (Non-Af Amer) 49 L BUN/Creatinine Ratio 16 Glucose 112 H Calculated Osmolality 284 Calcium 6.9 L Magnesium < 0.5 L Consult Discharge Plan - Plan Referrals: Bulmaro Negro MD [Primary Care Provider] -
[2018-05-31] MEDS: MICONAZOLE NITRATE 57 GM TUBE TP SCH (17:48)
--- NOTE | 2018-05-31 19:07 | Electrocardiograph Report ---
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 : 1945 Requested By: Vinay Jacobsen Order Number: [id number] Reading MD: Mukund Rodriguez Measurements Intervals [place] Rate: 105 P: SD: 0 QRS: -16 QRSD: 98 T: 6 QT: 335 QTc: 396 Interpretive Statements ATRIAL FIBRILLATION WITH RAPID VENTRICULAR RESPONSE BASELINE ARTIFACT Electronically Signed On 05-31-2018 19:05:22 EDT by Mukund Rodriguez
[2018-05-31] MEDS: Mirtazapine 15 MG TABLET PO SCH (21:08)
[2018-06-01] MEDS: Insulin LISPRO 300 UNITS/3 ML VIAL SQ SCH ×6 (01:20→20:43)
[2018-06-01] MEDS: Levalbuterol Neb 0.63 MG/3 ML IH SCH ×3 (04:01→16:18)
[2018-06-01] MEDS: Ipratropium 1 PUFF INHALER IH SCH ×3 (04:01→16:18)
[2018-06-01] MEDS: Pantoprazole 40 MG VIAL IVP SCH ×2 (05:15→17:51)
[2018-06-01] MEDS: *HR* Heparin 5,000 UNIT/ML VIAL SQ SCH ×3 (05:15→20:49)
[2018-06-01] MEDS: MICONAZOLE NITRATE 57 GM TUBE TP SCH ×2 (05:15→10:41)
[2018-06-01 05:57] LABS: Basophils # 0.1 K/mcL (0.0-0.2); Basophils % 0.4 %; Eosinophils # 0.2 K/mcL (0.0-0.6); Eosinophils % 1.3 %; Hematocrit 36.8 % (37.5-50.1); Hemoglobin 11.4 g/dL (12.9-16.9); Immature Granulocytes % 0.6 % (0-4); Lymphocytes # 1.8 K/mcL (0.6-4.6); Lymphocytes % 14.5 %; Mean Corpuscular Hemoglobin 25.3 pg (28.0-33.3); Mean Corpuscular Volume 81.6 fL (83.0-100.0); Mean Platelet Volume 9.7 fL (9.4-12.4); Monocytes # 1.1 K/mcL (0.0-1.3); Monocytes % 8.4 %; Neutrophils # 9.3 K/mcL (1.6-8.9); Platelet Count 333 K/mcL (140-400); Red Blood Count 4.51 M/mcL (4.19-5.50); Red Cell Distribution Width 18.6 % (11.5-14.5); Segmented Neutrophils % 74.8 %
[2018-06-01 06:59] LABS: BUN/Creatinine Ratio 13 (6-26); Blood Urea Nitrogen 17 mg/dL (8-23); Calcium 6.8 mg/dL (8.6-10.3); Carbon Dioxide 20 mEq/L (23-29); Chloride 107 mEq/L (98-107); Glucose 101 mg/dL (70-105); Magnesium < 0.5 mg/dL (1.6-2.6); Osmolality,Calculated 286 (280-300); Potassium 4.1 mEq/L (3.5-5.1); Sodium 137 mEq/L (136-145); eGFR For African Americans > 60 (> 60); eGFR For Non-African Americans 54 (> 60)
[2018-06-01] MEDS: Cholecalciferol (D-3) 1,000 UNIT TABLET PO SCH (10:41)
[2018-06-01] MEDS: Metoprolol XL (24 HR) Succ 50 MG TAB.ER.24H PO SCH (10:41)
[2018-06-01] MEDS: Diltiazem CD (24hr) 120 MG CAPSULE PO SCH (10:41)
[2018-06-01] MEDS: Triamcinolone Acet 0.1% CRM 15 GM TUBE TP SCH (10:42)
[2018-06-01] MEDS: Piperacillin/Tazobactam 3.375 GM in 0.9 % Sodium Chloride Mini Bag 100 ML IVPB SCH ×3 (10:42→23:31)
--- NOTE | 2018-06-01 14:38 | Palliative - Consult Note ---
Date of Encounter: 06/01/18 Time of Encounter: 13:45 - Assessment and Plan (1) Atrial fibrillation with RVR Current Visit: Yes Status: Acute Assessment and plan: Patient continues to have irregular heartbeat. Unable to have anticoagulation as hx of GI Bleed. (2) Acute respiratory failure with hypoxia and hypercapnia Current Visit: No Status: Acute Assessment and plan: Patient's oxygen saturation fluctuates 80s-95% during evaluation on Room air, make utilize oxygen PRN. Patient refuses intubation. (3) Protein-calorie malnutrition, moderate Current Visit: Yes Status: Chronic Assessment and plan: Patient's reports poor PO intake. Ate 75% of lunch. Continue to monitor PO Intake. reports she will now chop patient's food as she feels he is eating better. (4) Hospital-acquired pneumonia Current Visit: Yes Status: Acute Assessment and plan: Patient is ordered Vancomycin. Lungs sounds clear. Continue IV antibiotics. Family desires to continue hospitalized treatment until infection has improved. (5) Sacral decubitus ulcer Current Visit: Yes Status: Acute Assessment and plan: Wound care consulted. Qualifiers: Pressure injury stage: stage 1 Qualified Code(s): L89.151 - Pressure ulcer of sacral region, stage 1 (6) Goals of care, counseling/discussion Current Visit: Yes Status: Acute Assessment and plan: Conducted meeting with patient and patient's . Verbalized understanding that further cancer treatment is not an option and Oncology recommends hospice care. Patient previously had [facility] and has already been evaluated by [facility]. In April, patient and refused [facility] pending meeting with Dr. Hernandez. Patient's follow up appointment with Dr. Hernandez date occurred while in hospital. Shayna Alva CNP, reported that she spoke with Dr. Hernandez prior to visiting patient and was notified that patient was recommended to have hospice services. Patient's expressed concern over patient's inability to ambulate independently and desired further PT. Will order PT/OT while inpatient. Spoke with Cheli at [facility] (13:27), whom reports that PT would be possible with [facility] times 2 weeks maximum; patient's reports understanding. Patient's family and patient desire to discharge to [facility] at discharge once antibiotics are completed. Further discussed CODE STATUS and patient verbalized understanding of risks of CPR/Intubation; patient desired CODE STATUS be changed to DNR CCA/DNI. Notified Shayna Alva CNP with updated plan of care and CODE STATUS. (7) Esophageal cancer Current Visit: Yes Status: Chronic Assessment and plan: Oncology consult appreciated. Recommend hospice care at discharge. Qualifiers: Malignant neoplasm of esophagus location: lower third Qualified Code(s): C15.5 - Malignant neoplasm of lower third of esophagus (8) Debility, unspecified Current Visit: Yes Status: Acute Assessment and plan: Patient and patient's report increased debility for last several days. Patient and patient's desire continued PT with hospice at discharge. Will order PT/OT for hospital stay. Palliative-CN HPI - Data of Consult Patient: new to practice Consult date: 06/01/18 Requesting Physician: Savanna Zhou MD Primary Care Provider: Bulmaro Negro MD - Consult Narrative Palliative Care/Comfort Measures: Palliative care Reason for consult: Hospice/Goals of care History of present illness: Mr. Jimenez is a 72 year old male arrived to [facility] with generalized weakness and AMS on 05/30/18. Patient had been recently diagnosed with esophageal cancer. Patient reported generalized weakness and frequent UTI. Reported LLQ abdominal pain. PMH: Atrial fibrillation, Cancer, CHF, CKD stage 3, COPD, DM, GERD, Hyperlipidemia, HTN, Malignancy, and venous statis. Initial CXR showed cardiomegally, calcific atherosclerosis aorta, focal left basilar atelectasis or infiltrate and small volume pleural effusion; recommend full inspiration PA and lateral chest for pulmonary findings. Abdominal/Pelvis CT showing no acute intra-abdominal process and moderate hiatal hernia noted. Chest CT showing Multifocal ground-glass attenuation is noted bilaterally; bronchliolitis not excluded; dependent atelectasis bilaterally; small nodular densities unchanged; hiatal hernia noted; and multiple small lymph nodes noted. Patient admitted Hospital-acquired pneumonia, Atrial fibrillation with RVR, Acute encephalopathy , Esophageal Cancer, CKD stage 3, Diastolic CHF, Sacral Decubitus ulcer, Venous Status Dermatitis of BLE, Protein-Calorie Malnutrition, moderate, and acute on chronic respiratory failure with hypoxia and hypercapnia. Oncology Inpatient consult completed; recommend hospice care. Palliative care consult for hospice; goals of care. Patient resting in bed turned to right side upon arrival for assessment. Patient 's , Sabina Jimenez [phone], present at bedside. Patient alert and oriented times 3. Patient denies pain, nausea, shortness of breath, or anxiety during assessment. CC: Savanna Zhou MD Past Med Surg Social Fam HX - Past Medical History Medical history: atrial fibrillation, cancer, CHF, COPD, diabetes, GERD, hyperlipidemia, hypertension, malignancy, venous stasis Additional medical history: esphogeal cancer Psychiatric history: anxiety - Past Surgical History Surgical History: appendectomy, cholecystectomy, herniorrhaphy, knee replacement Additional surgical history: Bilateral knee replacement - Social History Smoking Status: Never smoker Smokeless Tobacco Status: No Alcohol use: none Drug use: none - Family History Mother Living Status: Hx Family Cardiac Disorders: Yes (HTN) Father Living Status: Hx Family Cardiac Disorders: Yes (CHF, HTN) Hx Family Respiratory Disorders: No Hx Family Cancer: No Hx Family Endocrine Disorder: No Medications and Allergies Metformin HCl [Metformin HCl ER] 1,000 mg PO BID 03/29/18 [History] Metoprolol Succinate [Toprol Xl] 50 mg PO DAILY 03/29/18 [History] Omeprazole [PriLOSEC] 40 mg PO BIDWM 03/29/18 [History] Oxybutynin Chloride [Ditropan Xl] 15 mg PO DAILY 03/29/18 [History] SitaGLIPtin [Januvia] 100 mg PO DAILY 03/29/18 [History] Tramadol HCl [Ultram] 50 mg PO TID PRN 03/29/18 [History] Diltiazem CD (24hr) [Cardizem CD] 120 mg PO DAILY #30 cap.er.24h 04/05/18 [Rx] Mirtazapine [Remeron] 15 mg PO HS #30 tablet 05/04/18 [Rx] Ammonium Lactate [Amlactin] 1 appl TP DAILY 05/31/18 [History] Cholecalciferol (Vitamin D3) [Vitamin D] 50,000 unit PO QWEEK 05/31/18 [History] OxyCODONE/APAP 5/325 [Percocet 5/325 MG] 1 each PO Q6HR PRN 05/31/18 [History] Potassium Chloride [K-Tab ER] 10 meq PO DAILY 05/31/18 [History] Triamcinolone Acet 0.1% CRM [Kenalog] 1 appl TP DAILY 05/31/18 [History] 3 Allergy/AdvReac Type Severity Reaction Status Date / Time No Known Allergies Allergy Verified 04/13/18 08:45 - Constitutional Constitutional ROS PAL: decreased appetite, fatigue, lethargy, weight loss - Cardiovascular Cardiovascular ROS: edema, irregular heart rhythm, leg edema, pedal edema, no chest pain, no dyspnea on exertion - Respiratory Respiratory: no dyspnea - Gastrointestinal Gastrointestinal: no abdominal pain, no change in bowel habits, no diarrhea, no nausea, no vomiting - Genitourinary Genitourinary ROS male: difficulty urinating, urinary incontinence - Musculoskeletal Musculoskeletal ROS IM: muscle weakness, no myalgias - Neurological Neurological ROS: confusion - Psychiatric Psychiatric general PM: change in appetite Palliative Care-Exam - Constitutional Vitals: Temp Pulse Resp BP Pulse Ox 98.0 F 97 16 122/88 98 06/01/18 13:04 06/01/18 13:04 06/01/18 13:04 06/01/18 13:04 06/01/18 13:04 General appearance: Present: cooperative, no acute distress - Head Head Exam: Present: atraumatic, normal inspection - Eye Eye exam: Present: normal appearance, PERRL. Absent: nystagmus, periorbital swelling, periorbital tenderness - ENT ENT exam: Present: mucous membranes dry, normal external ear exam - Expanded ENT Exam Mouth Exam: Absent: drooling - Neck Neck exam: Present: full ROM, normal inspection - Respiratory Respiratory exam: Present: CTAB. Absent: accessory muscle use, respiratory distress, wheezes, tachypnea - Cardiovascular Cardiovascular exam: Present: irregular rhythm, tachycardia - Expanded Cardiovascular Exam Peripheral pulses: 1+: Radial (L), Radial (R), Posterior Tibialis (L), Posterior Tibialis (R), Dorsalis Pedis (L) PM, Dorsalis Pedis (R) PM - GI/Abdominal Exam GI/Abdominal exam: Present: diminished bowel sounds, distended, soft. Absent: tenderness - Rectal Rectal Exam: Present: deferred - Neurological Exam Neurological exam: Present: alert, oriented X3, strengths equal and symetr throughout. Absent: altered, speech deficit - Expanded Neurological Exam Patient oriented to: Present: person, place, time Speech: Absent: expressive aphasia, garbled, slurred, stutter Coma Scale Eye Opening: Spontaneous Coma Scale Motor Response: Obeys Commands Coma Scale Verbal Response: Oriented Coma Scale Total: 15 - Skin Skin exam: Absent: intact (sacral decubitus), normal color Internal Medicine - CN: Reslt - Labs CBC & Chem 7: 06/01/18 05:46 06/01/18 05:46 Labs: Short CBC 06/01/18 Range/Units 05:46 WBC 12.4 H (4.3-11.1) K/mcL Hgb 11.4 L (12.9-16.9) g/dL Hct 36.8 L (37.5-50.1) % Plt Count 333 (140-400) K/mcL Neutrophils # 9.3 H (1.6-8.9) K/mcL BMP 06/01/18 05:46 Sodium 137 Potassium 4.1 Chloride 107 Carbon Dioxide 20 L BUN 17 Creatinine 1.31 H Glucose 101 Calcium 6.8 L - ABG Interpretation ABG results: PT/INR, D-dimer PT 13.3 Seconds (9.4-12.1) H 05/30/18 19:48 Consult Discharge Plan - Plan Referrals: Bulmaro Negro MD [Primary Care Provider] - Palliative Quality Palliative Quality: Screen for Code Status: Yes, Screen for Goals of Care: Yes, Screen for Pain: Yes, If Pain Regimen Started, Initiate Bowel Regimen: NA, Screen for Nausea/Vomitting: Yes Code Status: 06/01/18 14:17 DNR [Resuscitation Status: Active] [RES] Routine Comment: Resuscitation Status: [id number]
[2018-06-01] MEDS: *HR* OxyCODONE/APAP 5/325 TABLET PO PRN ×2 (15:52→23:30)
--- NOTE | 2018-06-01 18:34 | Internal Med Progress Note ---
Date of Encounter: 06/01/18 Time of Encounter: 14:40 - Assessment and plan (1) Esophageal cancer Current Visit: Yes Status: Chronic Assessment and plan: Oncology consult and recommendations appreciated; patient is currently very weak with a poor functional status and cannot tolerate chemoradiation; Hospice/ palliative care has been recommended; goals of care d/w patient and his at bedside; have been seen by Palliative care- code status changed to DNR/DNI, no further cancer treatment, goal for short term rehab if possible, or return home with Hospice vs [facility]; PT/OT evaluation; 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, cleared for soft diet and thin liquids; Qualifiers: Malignant neoplasm of esophagus location: lower third Qualified Code(s): C15.5 - Malignant neoplasm of lower third of esophagus (2) Atrial fibrillation with RVR Current Visit: Yes Status: Acute Assessment and plan: now rate-controlled; has been on IV Cardizem drip, now home doses of beta anastacio and CCB have been resumed; not on anticoagulation due to h/o- GI bleed; continue Telemetry monitoring; (3) Diabetes mellitus Current Visit: Yes Status: Chronic Assessment and plan: blood sugars well-controlled; hold oral hypoglycemics; continue Accucheck blood glucose monitoring with SSI as needed; diabetic diet; Qualifiers: Diabetes mellitus type: type 2 Diabetes mellitus prison insulin use: without prison use Diabetes mellitus complication status: with circulatory complication Diabetes mellitus complication detail: with other circulatory complications Qualified Code(s): E11.59 - Type 2 diabetes mellitus with other circulatory complications (4) Hypertension Current Visit: Yes Status: Chronic Qualifiers: Hypertension type: essential hypertension Qualified Code(s): I10 - Essential (primary) hypertension (5) Venous stasis dermatitis of both lower extremities Current Visit: Yes Status: Chronic (6) DVT prophylaxis Current Visit: Yes Status: Acute (7) Protein-calorie malnutrition, moderate Current Visit: Yes Status: Chronic Assessment and plan: Procurement Intern on board; due to underlying malignancy; (8) Hospital-acquired pneumonia Current Visit: Yes Status: Suspected Assessment and plan: CT chest shows- Multifocal ground-glass attenuation is noted bilaterally. Blood cultures, urine Legionella and Strep pneumo Ag negative; hold Levaquin, continue Vancomycin and Zosyn for now; supplemental O2 and supportive care; improved O2 requirements; (9) Hyperlipidemia Current Visit: Yes Status: Chronic Qualifiers: Hyperlipidemia type: unspecified Qualified Code(s): E78.5 - Hyperlipidemia , unspecified (10) CKD (chronic kidney disease) stage 3, GFR 30-59 ml/min Current Visit: Yes Status: Chronic (11) Acute encephalopathy Current Visit: Yes Status: Acute Assessment and plan: improving; (12) Diastolic CHF, chronic Current Visit: Yes Status: Chronic (13) Sacral decubitus ulcer Current Visit: Yes Status: Chronic Assessment and plan: present on admission; frequent repositioning and out of bed to chair as tolerated; barrier cream; Qualifiers: Pressure injury stage: stage 1 Qualified Code(s): L89.151 - Pressure ulcer of sacral region, stage 1 (14) Acute on chronic respiratory failure with hypoxia and hypercapnia Current Visit: Yes Status: Acute (15) Hypomagnesemia Current Visit: Yes Status: Acute Assessment and plan: due to poor oral intake; supplement with PO and IV Mg; (16) Hypophosphatemia Current Visit: Yes Status: Acute Assessment and plan: as above; supplement with PO P; - Time Spent With Patient Total time spent is greater than 50% in coordination of care (as documented) at patient's floor/unit and/or counseling patient: - Subjective Interval history: Appears weak; denies fever/chills, dyspnea, chest pain, palpitations; just worked with PT, fatigued; - Constitutional Vitals: Temp Pulse Resp BP Pulse Ox 98.0 F 79 20 120/90 96 06/01/18 16:08 06/01/18 16:08 06/01/18 16:08 06/01/18 16:08 06/01/18 16:08 General appearance: Present: cooperative, A&O X 2, pleasant, answers questions appropriately - Respiratory Respiratory exam: Present: CTAB. Absent: accessory muscle use, rales, rhonchi, wheezes - Cardiovascular Cardiovascular exam: Present: irregular rhythm, +S1, +S2. Absent: diastolic murmur, gallop, rubs, systolic murmur - GI/Abdominal GI/Abdominal exam: Present: normal bowel sounds, soft, no peritoneal signs. Absent: distended, tenderness - Extremities Exam Extremities exam: Present: pedal edema (dependent pedal edema with chronic stasis dermatitis), warm, radial pulses palpable and symmetrical. Absent: calf tenderness, cyanotic - Neurological Exam Neurological exam: Present: CN II-XII intact, oriented X3, no focal deficits ( decreased motor power B/L LE). Absent: pronater drift, facial droop, speech deficit Internal Medicine: Result - Labs CBC & Chem 7: 06/01/18 05:46 06/01/18 05:46 Labs: Short CBC 06/01/18 Range/Units 05:46 WBC 12.4 H (4.3-11.1) K/mcL Hgb 11.4 L (12.9-16.9) g/dL Hct 36.8 L (37.5-50.1) % Plt Count 333 (140-400) K/mcL Neutrophils # 9.3 H (1.6-8.9) K/mcL BMP 06/01/18 05:46 Sodium 137 Potassium 4.1 Chloride 107 Carbon Dioxide 20 L BUN 17 Creatinine 1.31 H Glucose 101 Calcium 6.8 L - ABG Interpretation ABG results: PT/INR, D-dimer PT 13.3 Seconds (9.4-12.1) H 05/30/18 19:48 Consult Discharge Plan - Plan Referrals: Bulmaro Negro MD [Primary Care Provider] -
[2018-06-01] MEDS: Mirtazapine 15 MG TABLET PO SCH (20:48)
[2018-06-01] MEDS: Magnesium Oxide 400 MG TABLET PO SCH (20:48)
[2018-06-02] MEDS: *HR* Heparin 5,000 UNIT/ML VIAL SQ SCH ×3 (06:00→21:15)
[2018-06-02] MEDS: Pantoprazole 40 MG VIAL IVP SCH ×2 (06:00→17:47)
[2018-06-02] MEDS: MICONAZOLE NITRATE 57 GM TUBE TP SCH (06:02)
[2018-06-02 06:20] LABS: Basophils # 0.1 K/mcL (0.0-0.2); Basophils % 0.6 %; Eosinophils # 0.3 K/mcL (0.0-0.6); Eosinophils % 2.2 %; Hematocrit 38.9 % (37.5-50.1); Hemoglobin 12.4 g/dL (12.9-16.9); Immature Granulocytes % 0.8 % (0-4); Lymphocytes # 1.5 K/mcL (0.6-4.6); Lymphocytes % 12.8 %; Mean Corpuscular HGB Conc 31.9 g/dL (31.6-35.5); Mean Corpuscular Hemoglobin 26.1 pg (28.0-33.3); Mean Corpuscular Volume 81.7 fL (83.0-100.0); Mean Platelet Volume 9.8 fL (9.4-12.4); Monocytes % 8.3 %; Neutrophils # 8.6 K/mcL (1.6-8.9); Platelet Count 363 K/mcL (140-400); Red Blood Count 4.76 M/mcL (4.19-5.50); Red Cell Distribution Width 18.5 % (11.5-14.5); Segmented Neutrophils % 75.3 %
[2018-06-02 06:43] LABS: BUN/Creatinine Ratio 10 (6-26); Blood Urea Nitrogen 13 mg/dL (8-23); Calcium 6.7 mg/dL (8.6-10.3); Carbon Dioxide 22 mEq/L (23-29); Chloride 107 mEq/L (98-107); Glucose 88 mg/dL (70-105); Magnesium 0.8 mg/dL (1.6-2.6); Osmolality,Calculated 286 (280-300); Phosphorous 2.2 mg/dL (2.7-4.5); Potassium 3.8 mEq/L (3.5-5.1); Sodium 138 mEq/L (136-145); eGFR For African Americans > 60 (> 60); eGFR For Non-African Americans 55 (> 60)
[2018-06-02] MEDS: Cholecalciferol (D-3) 1,000 UNIT TABLET PO SCH (09:16)
[2018-06-02] MEDS: Diltiazem CD (24hr) 120 MG CAPSULE PO SCH (09:16)
[2018-06-02] MEDS: Metoprolol XL (24 HR) Succ 50 MG TAB.ER.24H PO SCH (09:16)
[2018-06-02] MEDS: Magnesium Oxide 400 MG TABLET PO SCH ×2 (09:16→21:14)
[2018-06-02] MEDS: Piperacillin/Tazobactam 3.375 GM in 0.9 % Sodium Chloride Mini Bag 100 ML IVPB SCH ×2 (09:16→20:39)
[2018-06-02] MEDS: Insulin LISPRO 300 UNITS/3 ML VIAL SQ SCH ×4 (09:17→20:21)
[2018-06-02] MEDS: Triamcinolone Acet 0.1% CRM 15 GM TUBE TP SCH (09:17)
--- NOTE | 2018-06-02 09:39 | Palliative Progress Note ---
Date of Encounter: 06/02/18 Time of Encounter: 09:00 - Assessment and plan (1) Atrial fibrillation with RVR Current Visit: Yes Status: Acute Assessment and plan: Patient continues to have irregular heart beat. (2) Acute respiratory failure with hypoxia and hypercapnia Current Visit: No Status: Acute Assessment and plan: Patient's oxygen saturation 94% on room air. Continue oxygen PRN. (3) Protein-calorie malnutrition, moderate Current Visit: Yes Status: Chronic Assessment and plan: Patient ate 10% of breakfast per documentation. (4) Hospital-acquired pneumonia Current Visit: Yes Status: Suspected Assessment and plan: Patient's WBC improving. Remains afebrile. Continue Zosyn and Vancomycin per Primary team. (5) Sacral decubitus ulcer Current Visit: Yes Status: Chronic Assessment and plan: Wound care consulted. Qualifiers: Pressure injury stage: stage 1 Qualified Code(s): L89.151 - Pressure ulcer of sacral region, stage 1 (6) Goals of care, counseling/discussion Current Visit: Yes Status: Acute Assessment and plan: Spoke with patient regarding discharge planning. Patient and son agreed plan to discharge home with [facility] once IV antibiotic treatment completed while in hospital. Per speaking with Cheli yesterday, patient to receive two weeks of PT at home with [facility]. Palliative care will continue to follow patient at a distance. (7) Esophageal cancer Current Visit: Yes Status: Chronic Assessment and plan: Patient will not be receiving cancer treatment. 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 - Time Spent With Patient Total time spent is greater than 50% in coordination of care (as documented) at patient's floor/unit and/or counseling patient: less than 15 minutes - Subjective Interval history: Patient awake, alert, and oriented times 3 upon arrival for assessment. Patient' s primary RN and son, Yon, present at bedside during assessment. Patient denies pain, nausea, anxiety, or shortness of breath. Patient has received zero doses of Tramadol and two doses of Percocet in the last 24 hours. Patient's son reports PT was in already this am and patient worked with them. - Constitutional Vitals: Abnormal lab results WBC 11.4 K/mcL (4.3-11.1) H 06/02/18 05:51 Hgb 12.4 g/dL (12.9-16.9) L 06/02/18 05:51 MCV 81.7 fL (83.0-100.0) L 06/02/18 05:51 MCH 26.1 pg (28.0-33.3) L 06/02/18 05:51 RDW 18.5 % (11.5-14.5) H 06/02/18 05:51 PT 13.3 Seconds (9.4-12.1) H 05/30/18 19:48 Carbon Dioxide 22 mEq/L (23-29) L 06/02/18 05:51 Est GFR (Non-Af Amer) 55 (> 60) L 06/02/18 05:51 POC Glucose 157 mg/dL (70-99) H 06/01/18 20:02 Calcium 6.7 mg/dL (8.6-10.3) L 06/02/18 05:51 Phosphorus 2.2 mg/dL (2.7-4.5) L 06/02/18 05:51 Magnesium 0.8 mg/dL (1.6-2.6) L 06/02/18 05:51 Direct Bilirubin 0.3 mg/dL (0.0-0.2) H 05/30/18 19:48 AST 10 Units/L (13-39) L 05/30/18 19:48 Serum Total Protein 6.0 g/dL (6.4-8.9) L 05/30/18 19:48 Albumin 3.0 g/dL (3.5-5.7) L 05/30/18 19:48 Albumin/Globulin Ratio 1.0 (1.1-2.2) L 05/30/18 19:48 Urine Clarity Cloudy (Clear) A 05/30/18 22:06 Ur Specific [place] > 1.030 (1.010-1.025) H 05/30/18 22:06 Ur Leukocyte Esterase Moderate (Negative) H 05/30/18 22:06 Urine Microscopic RBC 3-5 per hpf (0-3) H 05/30/18 22:06 Urine Microscopic WBC 15-30 per hpf (0-3) H 05/30/18 22:06 Ur Squamous Epith Cells Many per lpf (None-Few) H 05/30/18 22:06 Amorphous Sediment Many (Few) H 05/30/18 22:06 Ur Culture Indicated? NO. (NO) A 05/30/18 22:06 Urine Opiates Screen Positive ng/mL ([id number]) H 05/30/18 22:06 General appearance: Present: cooperative, morbidly obese, no acute distress - Head Head exam: Present: atraumatic, normal inspection - Eye Eye exam: Present: EOMI, normal appearance, PERRL. Absent: periorbital swelling , periorbital tenderness Pupils: Present: normal accommodation, PERRL - ENT ENT exam: Present: mucous membranes moist - Neck Neck exam: Present: full ROM, normal inspection - Respiratory Respiratory exam: Present: wheezes. Absent: accessory muscle use, respiratory distress - Cardiovascular Cardiovascular exam: Present: irregular rhythm - GI/Abdominal GI/Abdominal exam: Present: distended, normal bowel sounds, soft. Absent: tenderness - Rectal Rectal exam: Present: deferred - Extremities Exam Extremities exam: Present: pedal edema (generalized edema 1-2+). Absent: calf tenderness, normal inspection - Neurological Exam Neurological exam: Present: alert, oriented X3, strengths equal and symetr throughout. Absent: altered - Psychiatric Psychiatric exam: Present: normal affect, normal mood. Absent: agitated, anxious - Skin Skin exam: Present: dry. Absent: intact Palliative Quality Palliative Quality: Screen for Code Status: Yes, Screen for Goals of Care: Yes, Screen for Pain: Yes, If Pain Regimen Started, Initiate Bowel Regimen: NA, Screen for Nausea/Vomitting: Yes Code Status: 06/01/18 14:17 DNR [Resuscitation Status: Active] [RES] Routine Comment: Resuscitation Status: [id number] - Labs CBC & Chem 7: 06/02/18 05:51 06/02/18 05:51 Labs: Laboratory Results - last 24 hr 06/01/18 06/01/18 06/01/18 07:17 12:10 16:10 WBC RBC Hgb Hct MCV MCH MCHC RDW Plt Count MPV Immature Gran % Seg Neutrophils % Lymphocytes % Monocytes % Eosinophils % Basophils % Neutrophils # Lymphocytes # Monocytes # Eosinophils # Basophils # Sodium Potassium Chloride Carbon Dioxide BUN Creatinine Est GFR ( Amer) Est GFR (Non-Af Amer) BUN/Creatinine Ratio Glucose POC Glucose 96 118 H 131 H Calculated Osmolality Calcium Phosphorus Magnesium 06/01/18 06/02/18 06/02/18 20:02 05:51 05:51 WBC 11.4 H RBC 4.76 Hgb 12.4 L Hct 38.9 MCV 81.7 L MCH 26.1 L MCHC 31.9 RDW 18.5 H Plt Count 363 MPV 9.8 Immature Gran % 0.8 Seg Neutrophils % 75.3 Lymphocytes % 12.8 Monocytes % 8.3 Eosinophils % 2.2 Basophils % 0.6 Neutrophils # 8.6 Lymphocytes # 1.5 Monocytes # 1.0 Eosinophils # 0.3 Basophils # 0.1 Sodium 138 Potassium 3.8 Chloride 107 Carbon Dioxide 22 L BUN 13 Creatinine 1.29 Est GFR ( Amer) > 60 Est GFR (Non-Af Amer) 55 L BUN/Creatinine Ratio 10 Glucose 88 POC Glucose 157 H Calculated Osmolality 286 Calcium 6.7 L Phosphorus 2.2 L Magnesium 0.8 L - ABG Interpretation ABG results: PT/INR, D-dimer PT 13.3 Seconds (9.4-12.1) H 05/30/18 19:48 Consult Discharge Plan - Plan Referrals: Bulmaro Negro MD [Primary Care Provider] -
[2018-06-02] MEDS ORDERED: Aminoglycoside Consult 1 EACH MC ONE (09:40)
--- NOTE | 2018-06-02 16:34 | Internal Med Progress Note ---
Date of Encounter: 06/02/18 Time of Encounter: 11:45 - Assessment and plan (1) Esophageal cancer Current Visit: Yes Status: Chronic Assessment and plan: Oncology consult and recommendations appreciated; no further plans for chemoradiation; Hospice/palliative care has been recommended; PT/OT evaluation recommends ECF; plan to discharge home with [facility] with home PT/OT; EVENT REPRESENTATIVE evaluation noted, cleared for soft diet and thin liquids; Qualifiers: Malignant neoplasm of esophagus location: lower third Qualified Code(s): C15.5 - Malignant neoplasm of lower third of esophagus (2) Atrial fibrillation with RVR Current Visit: Yes Status: Chronic Assessment and plan: now rate-controlled; continue home doses of beta anastacio and CCB; not on anticoagulation due to h/o- GI bleed; continue Telemetry monitoring; (3) Diabetes mellitus Current Visit: Yes Status: Chronic Assessment and plan: blood sugars well-controlled; hold oral hypoglycemics; continue Accucheck blood glucose monitoring with SSI as needed; diabetic diet; Qualifiers: Diabetes mellitus type: type 2 Diabetes mellitus nursing home insulin use: without 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 Diabetes mellitus complication status: with circulatory complication Diabetes mellitus complication detail: with other circulatory complications Qualified Code(s): E11.59 - Type 2 diabetes mellitus with other circulatory complications (4) Hypertension Current Visit: Yes Status: Chronic Qualifiers: Hypertension type: essential hypertension Qualified Code(s): I10 - Essential (primary) hypertension (5) Venous stasis dermatitis of both lower extremities Current Visit: Yes Status: Chronic (6) DVT prophylaxis Current Visit: Yes Status: Acute (7) Protein-calorie malnutrition, moderate Current Visit: Yes Status: Chronic (8) Hospital-acquired pneumonia Current Visit: Yes Status: Suspected Assessment and plan: CT chest shows- Multifocal ground-glass attenuation is noted bilaterally. Blood cultures, urine Legionella and Strep pneumo Ag negative; continue Zosyn for now; supplemental O2 and supportive care; improved O2 requirements; (9) Hyperlipidemia Current Visit: Yes Status: Chronic Assessment and plan: Continue home meds Qualifiers: Hyperlipidemia type: unspecified Qualified Code(s): E78.5 - Hyperlipidemia , unspecified (10) CKD (chronic kidney disease) stage 3, GFR 30-59 ml/min Current Visit: Yes Status: Chronic Assessment and plan: Renal function improving, serum creatinine at 1.29 today; (11) Acute encephalopathy Current Visit: Yes Status: Resolved (12) Diastolic CHF, chronic Current Visit: Yes Status: Chronic (13) Sacral decubitus ulcer Current Visit: Yes Status: Chronic Qualifiers: Pressure injury stage: stage 1 Qualified Code(s): L89.151 - Pressure ulcer of sacral region, stage 1 (14) Acute on chronic respiratory failure with hypoxia and hypercapnia Current Visit: Yes Status: Resolved Assessment and plan: due to pNA; currently saturating well on room air; (15) Hypomagnesemia Current Visit: Yes Status: Acute Assessment and plan: due to poor oral intake; supplement with PO and IV Mg; (16) Hypophosphatemia Current Visit: Yes Status: Acute Assessment and plan: as above; supplement with PO and IV P; - Time Spent With Patient Total time spent is greater than 50% in coordination of care (as documented) at patient's floor/unit and/or counseling patient: - Subjective Interval history: Reports feeling well; denies new complaints; continues to have generalized weakness; tolerates oral diet; no chest pain, dyspnea, palpitations; - Constitutional Vitals: Temp Pulse Resp BP Pulse Ox 98.5 F 84 18 114/81 98 06/02/18 15:21 06/02/18 15:21 06/02/18 15:21 06/02/18 15:21 06/02/18 15:21 General appearance: Present: cooperative, A&O X 2, answers questions appropriately - Respiratory Respiratory exam: Present: CTAB. Absent: accessory muscle use, rales, rhonchi, wheezes - Cardiovascular Cardiovascular exam: Present: irregular rhythm, +S1, +S2. Absent: diastolic murmur, gallop, rubs, systolic murmur Internal Medicine: Result - Labs CBC & Chem 7: 06/02/18 05:51 06/02/18 05:51 Labs: Short CBC 06/02/18 Range/Units 05:51 WBC 11.4 H (4.3-11.1) K/mcL Hgb 12.4 L (12.9-16.9) g/dL Hct 38.9 (37.5-50.1) % Plt Count 363 (140-400) K/mcL Neutrophils # 8.6 (1.6-8.9) K/mcL BMP 06/02/18 05:51 Sodium 138 Potassium 3.8 Chloride 107 Carbon Dioxide 22 L BUN 13 Creatinine 1.29 Glucose 88 Calcium 6.7 L - ABG Interpretation ABG results: PT/INR, D-dimer PT 13.3 Seconds (9.4-12.1) H 05/30/18 19:48 Consult Discharge Plan - Plan Referrals: Bulmaro Negro MD [Primary Care Provider] -
[2018-06-02] MEDS: Mirtazapine 15 MG TABLET PO SCH (21:14)
[2018-06-03 05:57] LABS: BUN/Creatinine Ratio 10 (6-26); Blood Urea Nitrogen 13 mg/dL (8-23); Calcium 6.7 mg/dL (8.6-10.3); Carbon Dioxide 23 mEq/L (23-29); Chloride 108 mEq/L (98-107); Glucose 115 mg/dL (70-105); Magnesium 1.3 mg/dL (1.6-2.6); Osmolality,Calculated 287 (280-300); Phosphorous 2.7 mg/dL (2.7-4.5); Potassium 3.6 mEq/L (3.5-5.1); Sodium 138 mEq/L (136-145); eGFR For African Americans > 60 (> 60); eGFR For Non-African Americans 57 (> 60)
[2018-06-03] MEDS: Piperacillin/Tazobactam 3.375 GM in 0.9 % Sodium Chloride Mini Bag 100 ML IVPB SCH ×3 (06:34→20:35)
[2018-06-03] MEDS: Pantoprazole 40 MG VIAL IVP SCH ×2 (06:35→18:11)
[2018-06-03] MEDS: *HR* Heparin 5,000 UNIT/ML VIAL SQ SCH ×3 (06:35→23:05)
--- NOTE | 2018-06-03 07:18 | Palliative Progress Note ---
Date of Encounter: 06/03/18 Time of Encounter: 07:10 - Assessment and plan (1) Acute on chronic respiratory failure with hypoxia and hypercapnia Current Visit: Yes Status: Resolved Assessment and plan: Appears to have resolved, patient is maintaining oxygenation very well not feeling short of breath. (2) Atrial fibrillation with RVR Current Visit: Yes Status: Chronic Assessment and plan: Rate appears well controlled at this time. (3) CKD (chronic kidney disease) stage 3, GFR 30-59 ml/min Current Visit: Yes Status: Chronic Assessment and plan: BUN and creatinine have normalized. Much better than when he came in, and 2 new to watch (4) Goals of care, counseling/discussion Current Visit: Yes Status: Acute Assessment and plan: Patient is DNR CCA DNI. Goals of care are to ultimately return home. 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 Currently the plan is for the patient to go out for in patient rehabilitation preferably at [facility] but [facility] would be a second choice. After that the patient has opted for [facility]. (5) Hospital-acquired pneumonia Current Visit: Yes Status: Suspected Assessment and plan: On antibiotics, blood cultures not showing anything thus far. No new white count today 11,400 yesterday. A she is showing clinical improvement even though there is no white count back today areas no fever. 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 He wishes no assistance with them at this time. He is looking forward to going out to rehabilitation inpatient at either [facility] which is the preference or [facility]. - Constitutional Vitals: Abnormal lab results WBC 11.4 K/mcL (4.3-11.1) H 06/02/18 05:51 Hgb 12.4 g/dL (12.9-16.9) L 06/02/18 05:51 MCV 81.7 fL (83.0-100.0) L 06/02/18 05:51 MCH 26.1 pg (28.0-33.3) L 06/02/18 05:51 RDW 18.5 % (11.5-14.5) H 06/02/18 05:51 PT 13.3 Seconds (9.4-12.1) H 05/30/18 19:48 Chloride 108 mEq/L (98-107) H 06/03/18 05:10 Est GFR (Non-Af Amer) 57 (> 60) L 06/03/18 05:10 Glucose 115 mg/dL (70-105) H 06/03/18 05:10 POC Glucose 177 mg/dL (70-99) H 06/02/18 19:00 Calcium 6.7 mg/dL (8.6-10.3) L 06/03/18 05:10 Magnesium 1.3 mg/dL (1.6-2.6) L 06/03/18 05:10 Direct Bilirubin 0.3 mg/dL (0.0-0.2) H 05/30/18 19:48 AST 10 Units/L (13-39) L 05/30/18 19:48 Serum Total Protein 6.0 g/dL (6.4-8.9) L 05/30/18 19:48 Albumin 3.0 g/dL (3.5-5.7) L 05/30/18 19:48 Albumin/Globulin Ratio 1.0 (1.1-2.2) L 05/30/18 19:48 Procalcitonin 0.14 ng/mL (<=0.07) H 05/30/18 23:29 Urine Clarity Cloudy (Clear) A 05/30/18 22:06 Ur Specific [place] > 1.030 (1.010-1.025) H 05/30/18 22:06 Ur Leukocyte Esterase Moderate (Negative) H 05/30/18 22:06 Urine Microscopic RBC 3-5 per hpf (0-3) H 05/30/18 22:06 Urine Microscopic WBC 15-30 per hpf (0-3) H 05/30/18 22:06 Ur Squamous Epith Cells Many per lpf (None-Few) H 05/30/18 22:06 Amorphous Sediment Many (Few) H 05/30/18 22:06 Ur Culture Indicated? NO. (NO) A 05/30/18 22:06 Vancomycin Trough 15 mcg/mL (5-10) H 06/02/18 16:39 Urine Opiates Screen Positive ng/mL (Oklaio=[id number]) H 05/30/18 22:06 General appearance: Present: no acute distress - Head Head exam: Present: atraumatic, normal inspection - Eye Eye exam: Present: normal appearance - Respiratory Respiratory exam: Present: CTAB - Cardiovascular Cardiovascular exam: Present: irregular rhythm - GI/Abdominal GI/Abdominal exam: Present: normal bowel sounds, soft. Absent: tenderness - Neurological Exam Neurological exam: Present: alert, oriented X3 - Psychiatric Psychiatric exam: Present: normal affect, normal mood. Absent: agitated, anxious - Skin Skin exam: Present: dry, warm Palliative Quality Palliative Quality: Screen for Code Status: Yes, Screen for Goals of Care: Yes, Screen for Pain: Yes, If Pain Regimen Started, Initiate Bowel Regimen: NA, Screen for Nausea/Vomitting: Yes Code Status: 06/01/18 14:17 DNR [Resuscitation Status: Active] [RES] Routine Comment: Resuscitation Status: [id number] - Labs CBC & Chem 7: 06/02/18 05:51 06/03/18 05:10 Labs: Laboratory Results - last 24 hr 06/02/18 06/02/18 06/02/18 07:42 11:13 15:25 Sodium Potassium Chloride Carbon Dioxide BUN Creatinine Est GFR ( Amer) Est GFR (Non-Af Amer) BUN/Creatinine Ratio Glucose POC Glucose 101 H 115 H 134 H Calculated Osmolality Calcium Phosphorus Magnesium Vancomycin Trough 06/02/18 06/02/18 06/03/18 16:39 19:00 05:10 Sodium 138 Potassium 3.6 Chloride 108 H Carbon Dioxide 23 BUN 13 Creatinine 1.26 Est GFR ( Amer) > 60 Est GFR (Non-Af Amer) 57 L BUN/Creatinine Ratio 10 Glucose 115 H POC Glucose 177 H Calculated Osmolality 287 Calcium 6.7 L Phosphorus 2.7 Magnesium 1.3 L Vancomycin Trough 15 H - ABG Interpretation ABG results: PT/INR, D-dimer PT 13.3 Seconds (9.4-12.1) H 05/30/18 19:48 Consult Discharge Plan - Plan Referrals: Bulmaro Negro MD [Primary Care Provider] -
[2018-06-03] MEDS: Insulin LISPRO 300 UNITS/3 ML VIAL SQ SCH ×4 (09:13→20:40)
[2018-06-03] MEDS: Metoprolol XL (24 HR) Succ 50 MG TAB.ER.24H PO SCH (09:15)
[2018-06-03] MEDS: Diltiazem CD (24hr) 120 MG CAPSULE PO SCH (09:15)
[2018-06-03] MEDS: Cholecalciferol (D-3) 1,000 UNIT TABLET PO SCH (09:15)
[2018-06-03] MEDS: Magnesium Oxide 400 MG TABLET PO SCH ×2 (09:16→20:05)
[2018-06-03] MEDS: Triamcinolone Acet 0.1% CRM 15 GM TUBE TP SCH (10:24)
--- NOTE | 2018-06-03 16:46 | Internal Med Progress Note ---
Date of Encounter: 06/03/18 Time of Encounter: 11:15 - Assessment and plan (1) Esophageal cancer Current Visit: Yes Status: Chronic Assessment and plan: Oncology consult and recommendations appreciated; no further plans for chemoradiation; Hospice/palliative care has been recommended; PT/OT evaluation recommends ECF; manager social responsibility working on the same. JOURNEYMAN PIPE FITTER evaluation noted, cleared for soft diet and thin liquids; Patient is medically stable for discharge, awaiting rehabilitation placement. Qualifiers: Malignant neoplasm of esophagus location: lower third Qualified Code(s): C15.5 - Malignant neoplasm of lower third of esophagus (2) Atrial fibrillation with RVR Current Visit: Yes Status: Chronic Assessment and plan: now rate-controlled; continue home doses of beta anastacio and CCB; not on anticoagulation due to h/o- GI bleed; continue Telemetry monitoring; (3) Diabetes mellitus Current Visit: Yes Status: Chronic Assessment and plan: blood sugars well-controlled; hold oral hypoglycemics; continue Accucheck blood glucose monitoring with SSI as needed; diabetic diet; Qualifiers: Diabetes mellitus type: type 2 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: without intermediate use Diabetes mellitus complication status: with circulatory complication Diabetes mellitus complication detail: with other circulatory complications Qualified Code(s): E11.59 - Type 2 diabetes mellitus with other circulatory complications (4) Hypertension Current Visit: Yes Status: Chronic Qualifiers: Hypertension type: essential hypertension Qualified Code(s): I10 - Essential (primary) hypertension (5) Venous stasis dermatitis of both lower extremities Current Visit: Yes Status: Chronic (6) DVT prophylaxis Current Visit: Yes Status: Acute (7) Protein-calorie malnutrition, moderate Current Visit: Yes Status: Chronic (8) Hospital-acquired pneumonia Current Visit: Yes Status: Suspected Assessment and plan: CT chest shows- Multifocal ground-glass attenuation is noted bilaterally. Blood cultures, urine Legionella and Strep pneumo Ag negative; continue Zosyn for now; supplemental O2 and supportive care; improved O2 requirements; (9) Hyperlipidemia Current Visit: Yes Status: Chronic Qualifiers: Hyperlipidemia type: unspecified Qualified Code(s): E78.5 - Hyperlipidemia , unspecified (10) CKD (chronic kidney disease) stage 3, GFR 30-59 ml/min Current Visit: Yes Status: Chronic (11) Acute encephalopathy Current Visit: Yes Status: Resolved Assessment and plan: Continues to be delirious, likely due to underlying malignancy, malnutrition and hospitalization. (12) Diastolic CHF, chronic Current Visit: Yes Status: Chronic (13) Sacral decubitus ulcer Current Visit: Yes Status: Chronic Qualifiers: Pressure injury stage: stage 1 Qualified Code(s): L89.151 - Pressure ulcer of sacral region, stage 1 (14) Acute on chronic respiratory failure with hypoxia and hypercapnia Current Visit: Yes Status: Resolved (15) Hypomagnesemia Current Visit: Yes Status: Acute Assessment and plan: Likely due to poor oral intake. Improving. Supplement with IV and oral magnesium. (16) Hypophosphatemia Current Visit: Yes Status: Acute Assessment and plan: as above; supplement with PO and P; - Time Spent With Patient Total time spent is greater than 50% in coordination of care (as documented) at patient's floor/unit and/or counseling patient: - Subjective Interval history: Noted to be delirious, falling asleep intermittently. Continues to report that he wants to go to rehabilitation, although his states that he was not able to answer her earlier today. No chest pain, shortness of breath, palpitations. - Constitutional Vitals: Temp Pulse Resp BP Pulse Ox 97.4 F L 74 14 117/78 96 06/03/18 14:53 06/03/18 14:53 06/03/18 14:53 06/03/18 14:53 06/03/18 14:53 General appearance: Present: cooperative, A&O X 2, answers questions appropriately - Respiratory Respiratory exam: Present: CTAB (coarse breath sounds B/L). Absent: accessory muscle use, rales, rhonchi, wheezes - Cardiovascular Cardiovascular exam: Present: irregular rhythm, +S1, +S2. Absent: diastolic murmur, gallop, rubs, systolic murmur Internal Medicine: Result - Labs CBC & Chem 7: 06/02/18 05:51 06/03/18 05:10 Labs: BMP 06/03/18 05:10 Sodium 138 Potassium 3.6 Chloride 108 H Carbon Dioxide 23 BUN 13 Creatinine 1.26 Glucose 115 H Calcium 6.7 L - ABG Interpretation ABG results: PT/INR, D-dimer PT 13.3 Seconds (9.4-12.1) H 05/30/18 19:48 Consult Discharge Plan - Plan Referrals: Bulmaro Negro MD [Primary Care Provider] -
[2018-06-03] MEDS: Mirtazapine 15 MG TABLET PO SCH (20:05)
[2018-06-04] MEDS: Pantoprazole 40 MG VIAL IVP SCH (06:23)
[2018-06-04] MEDS: *HR* Heparin 5,000 UNIT/ML VIAL SQ SCH ×2 (06:24→14:31)
[2018-06-04] MEDS: Piperacillin/Tazobactam 3.375 GM in 0.9 % Sodium Chloride Mini Bag 100 ML IVPB SCH ×2 (06:24→14:30)
[2018-06-04 06:26] LABS: BUN/Creatinine Ratio 10 (6-26); Blood Urea Nitrogen 12 mg/dL (8-23); Calcium 6.7 mg/dL (8.6-10.3); Carbon Dioxide 21 mEq/L (23-29); Chloride 111 mEq/L (98-107); Glucose 105 mg/dL (70-105); Magnesium 1.4 mg/dL (1.6-2.6); Osmolality,Calculated 288 (280-300); Potassium 3.9 mEq/L (3.5-5.1); Sodium 139 mEq/L (136-145); eGFR For African Americans > 60 (> 60); eGFR For Non-African Americans > 60 (> 60)
[2018-06-04] MEDS: Insulin LISPRO 300 UNITS/3 ML VIAL SQ SCH ×3 (09:02→17:21)
[2018-06-04] MEDS: Cholecalciferol (D-3) 1,000 UNIT TABLET PO SCH (09:03)
[2018-06-04] MEDS: Magnesium Oxide 400 MG TABLET PO SCH (09:03)
[2018-06-04] MEDS: Diltiazem CD (24hr) 120 MG CAPSULE PO SCH (09:03)
[2018-06-04] MEDS: Metoprolol XL (24 HR) Succ 50 MG TAB.ER.24H PO SCH (09:03)
[2018-06-04] MEDS: Triamcinolone Acet 0.1% CRM 15 GM TUBE TP SCH (09:25)
--- NOTE | 2018-06-04 09:35 | Event Note ---
Date of Encounter: 06/04/18 Time of Encounter: 09:15 Upon arrival to patients room, patient's present at bedside. Patient had not complaints at this time. Awaiting insurance approval for SNF at [place]. VSS. Labs improving. According to record, patient is medically ready for discharge to SNF. Palliative care will continue to follow at a distance.
--- NOTE | 2018-06-04 15:47 | Discharge Summary ---
- NOTES TO OUTPATIENT PROVIDER Notes to Outpatient Provider: Bassampalma with RVR, now improved; weakness and debility, due to malignancy; electrolyte abnormalities, on supplements; to monitor Mg, P; Date of Encounter: 06/04/18 Time of Encounter: 11:20 - Discharge Diagnosis (1) Esophageal cancer Priority: Primary Status: Chronic Qualifiers: Malignant neoplasm of esophagus location: lower third Qualified Code(s): C15.5 - Malignant neoplasm of lower third of esophagus (2) Atrial fibrillation with RVR Priority: Primary Status: Chronic (3) Diabetes mellitus Priority: Secondary Status: Chronic Qualifiers: Diabetes mellitus type: type 2 Diabetes mellitus penitentiary insulin use: without penitentiary use Diabetes mellitus complication status: with circulatory complication Diabetes mellitus complication detail: with other circulatory complications Qualified Code(s): E11.59 - Type 2 diabetes mellitus with other circulatory complications (4) Hypertension Priority: Secondary Status: Chronic Qualifiers: Hypertension type: essential hypertension Qualified Code(s): I10 - Essential (primary) hypertension (5) Venous stasis dermatitis of both lower extremities Priority: Secondary Status: Chronic (6) Protein-calorie malnutrition, moderate Priority: Secondary Status: Chronic (7) Hospital-acquired pneumonia Priority: Primary Status: Suspected (8) Hyperlipidemia Priority: Secondary Status: Chronic Qualifiers: Hyperlipidemia type: unspecified Qualified Code(s): E78.5 - Hyperlipidemia , unspecified (9) Acute encephalopathy Priority: Primary Status: Acute (10) Diastolic CHF, chronic Priority: Secondary Status: Chronic (11) Sacral decubitus ulcer Priority: Secondary Status: Chronic Qualifiers: Pressure injury stage: stage 1 Qualified Code(s): L89.151 - Pressure ulcer of sacral region, stage 1 (12) Acute on chronic respiratory failure with hypoxia and hypercapnia Priority: Primary Status: Resolved (13) Hypomagnesemia Priority: Primary Status: Acute (14) Hypophosphatemia Priority: Primary Status: Acute (15) SUNI (acute kidney injury) Priority: Primary Status: Resolved Hospital course: Mr. Jimenez is a 72 year old male with the above medical problems, who was admitted with generalized weakness. He was noted to have atrial fibrillation with RVR, which was eventually better controlled on his home medications. He was given empiric IV antibiotics for possible pneumonia. 2 sets of blood cultures are negative. Urine legionella and strep pneumoniae antigen negative. Physical and occupational therapy evaluation was completed, recommend ECF placement. Palliative care has been on board, CODE STATUS was changed to DNR comfort care arrest/DNI. Oncology was consulted, given his poor functional status he may not be a candidate for continued chemoradiation. Patient is noted to have multiple electrolyte abnormalities which were supplemented during his course. He is also noted to have delirium and hallucinations due to the underlying medical conditions and deconditioning. Plan of care has been discussed with his each day of his hospitalization. Discharge discussed with: patient, family, nurse, social work - Time Spent with Patient Total time spent providing and/or coordinating discharge services: Greater than 30 minutes (45 min) - Discharge Medications Prescriptions: Amoxicillin/Clavulanate [Augmentin] 875 mg PO BIDWM #12 tablet Tramadol HCl [Ultram] 50 mg PO TID PRN 5 Days #10 tablet PRN Reason: Severe Pain Home Medications: Metformin HCl [Metformin HCl ER] 1,000 mg PO BID 03/29/18 [History] Metoprolol Succinate [Toprol Xl] 50 mg PO DAILY 03/29/18 [History] Omeprazole [PriLOSEC] 40 mg PO BIDWM 03/29/18 [History] Oxybutynin Chloride [Ditropan Xl] 15 mg PO DAILY 03/29/18 [History] SitaGLIPtin [Januvia] 100 mg PO DAILY 03/29/18 [History] Diltiazem CD (24hr) [Cardizem CD] 120 mg PO DAILY #30 cap.er.24h 04/05/18 [Rx] Mirtazapine [Remeron] 15 mg PO HS #30 tablet 05/04/18 [Rx] Ammonium Lactate [Amlactin] 1 appl TP DAILY 05/31/18 [History] Cholecalciferol (Vitamin D3) [Vitamin D3] 50,000 unit PO QWEEK 05/31/18 [History ] Potassium Chloride [K-Tab ER] 10 meq PO DAILY 05/31/18 [History] Triamcinolone Acet 0.1% CRM [Kenalog] 1 appl TP DAILY 05/31/18 [History] Acetaminophen [Tylenol] 650 mg PO Q6HR PRN tablet 06/04/18 [Rx] Amoxicillin/Clavulanate [Augmentin] 875 mg PO BIDWM #12 tablet 06/04/18 [Rx] Magnesium Oxide [Mag-Ox] 400 mg PO TID tablet 06/04/18 [Rx] Phos-NaK [Neutra-Phos] 1 each PO TID powd.pack 06/04/18 [Rx] Tramadol HCl [Ultram] 50 mg PO TID PRN 5 Days #10 tablet 06/04/18 [Rx] Allergies/Adverse Reactions: 3 Allergy/AdvReac Type Severity Reaction Status Date / Time No Known Allergies Allergy Verified 04/13/18 08:45 Date of admission: 05/31/18 02:27 Primary care physician: Bulmaro Negro MD Consults: 05/31/18 02:57 Consult to Animal Biologist [CONS] Routine Reason for SW Consult: Discharge planning. Patient from home with home health and PT/OT. 05/31/18 10:30 Consult to Oncology Hematology [CONS] Routine Consulting Provider: Shayna Alva Reason for Consult: esophageal cancer, ongoing chemo Time Notified: 10:31 Call Completed: Yes 06/01/18 13:39 Consult to Palliative Care [CONS] Routine Comment: Consulting Provider: Palliative Care [facility] Reason for Consult: hospice, goals of care Call Completed: Yes Discharging clinician: Savanna Zhou Anticipated date of discharge: 06/04/18 - Constitutional Vitals: Temp Pulse Resp BP Pulse Ox 97.7 F 90 16 123/80 96 06/04/18 11:46 06/04/18 11:46 06/04/18 11:46 06/04/18 11:46 06/04/18 11:46 General appearance: Present: cooperative, A&O X 2 (somnolent), answers questions appropriately - Cardiovascular Cardiovascular exam: Present: irregular rhythm, +S1, +S2. Absent: diastolic murmur, gallop, rubs, systolic murmur - Patient Status Disposition: Transfer SNF Condition: Fair Functional capacity at discharge: uses cane/walker Overall status at discharge: patient is progressing back to baseline - Discharge Instructions Follow Up With: Bulmaro Negro MD [Primary Care Provider] - Additional Instructions: F/up with PCP in 1-2 weeks F/up with Oncology in 3-4 weeks - Diet and Activity Activity: as per physical therapy Diet: diabetic diet, low fat, low cholesterol, low salt diet
--- NOTE | 2018-06-04 15:57 | Physician Discharge Referral ---
ExtendedCare Referral Info Transfer To: [facility] Provider in Charge: Savanna Zhou Provider in Charge after Transfer: PCP Institutional Level of Care: Skilled - Diagnosis (1) Esophageal cancer Priority: Secondary Status: Chronic (2) Atrial fibrillation with RVR Priority: Primary Status: Chronic (3) Diabetes mellitus Priority: Secondary Status: Chronic (4) Hypertension Priority: Secondary Status: Chronic (5) Venous stasis dermatitis of both lower extremities Priority: Secondary Status: Chronic (6) Protein-calorie malnutrition, moderate Priority: Secondary Status: Chronic (7) Hospital-acquired pneumonia Priority: Primary Status: Suspected (8) Hyperlipidemia Priority: Secondary Status: Chronic (9) Acute encephalopathy Priority: Primary Status: Acute (10) Diastolic CHF, chronic Priority: Secondary Status: Chronic (11) Sacral decubitus ulcer Priority: Secondary Status: Chronic (12) Acute on chronic respiratory failure with hypoxia and hypercapnia Priority: Primary Status: Resolved (13) Hypomagnesemia Priority: Primary Status: Acute (14) Hypophosphatemia Priority: Primary Status: Acute (15) SUNI (acute kidney injury) Priority: Primary Status: Resolved Expected Duration of Placement: 3 weeks Prognosis: Fair Aware of Diagnosis: Patient, Family Aware of Prognosis: Family - Transfer Medications Prescriptions: Amoxicillin/Clavulanate [Augmentin] 875 mg PO BIDWM #12 tablet Tramadol HCl [Ultram] 50 mg PO TID PRN 5 Days #10 tablet PRN Reason: Severe Pain Home Medications: Metformin HCl [Metformin HCl ER] 1,000 mg PO BID 03/29/18 [History] Metoprolol Succinate [Toprol Xl] 50 mg PO DAILY 03/29/18 [History] Omeprazole [PriLOSEC] 40 mg PO BIDWM 03/29/18 [History] Oxybutynin Chloride [Ditropan Xl] 15 mg PO DAILY 03/29/18 [History] SitaGLIPtin [Januvia] 100 mg PO DAILY 03/29/18 [History] Diltiazem CD (24hr) [Cardizem CD] 120 mg PO DAILY #30 cap.er.24h 04/05/18 [Rx] Mirtazapine [Remeron] 15 mg PO HS #30 tablet 05/04/18 [Rx] Ammonium Lactate [Amlactin] 1 appl TP DAILY 05/31/18 [History] Cholecalciferol (Vitamin D3) [Vitamin D3] 50,000 unit PO QWEEK 05/31/18 [History ] Potassium Chloride [K-Tab ER] 10 meq PO DAILY 05/31/18 [History] Triamcinolone Acet 0.1% CRM [Kenalog] 1 appl TP DAILY 05/31/18 [History] Acetaminophen [Tylenol] 650 mg PO Q6HR PRN tablet 06/04/18 [Rx] Amoxicillin/Clavulanate [Augmentin] 875 mg PO BIDWM #12 tablet 06/04/18 [Rx] Magnesium Oxide [Mag-Ox] 400 mg PO TID tablet 06/04/18 [Rx] Phos-NaK [Neutra-Phos] 1 each PO TID powd.pack 06/04/18 [Rx] Tramadol HCl [Ultram] 50 mg PO TID PRN 5 Days #10 tablet 06/04/18 [Rx] Allergies/Adverse Reactions: 3 Allergy/AdvReac Type Severity Reaction Status Date / Time No Known Allergies Allergy Verified 04/13/18 08:45 - Respiratory Orders Smoking Cessation: Smoking cessation has been advised. For more information, call the [facility] Quit Line at 5-960-RLXN-NOW. - Advance Directives Power of Supervisor [place] Department: Yes Code Status: DNR-Arrest/Don't Intubate - Mobility Orders Ambulate - Rehabiliation Orders Rehab Potential: Fair Rehab Orders: Sternal Precautions, ROM Exercises, Evaluation for Physical Therapy, Evaluation for Occupational Therapy - Diet Orders No Concentrated Sweets (diabetic), Cardiac CERTIFICATION: I certify that the transfer of the above named patient to an Extended Care Facility is necessary for the continuing treatment of the diagnosis listed. The above information is true and accurate reflection of patient's current condition. Confidential - Redisclosure prohibited without a patient's written consent.
[2018-06-04 17:06] VITALS: BP 130/79
== END 2018-06-04 18:59 | DRG 871 ==
LOC: EMEROO 19:21 → 2SOUTHHOLD 05-31 02:12 → SUATTDRO 05-31 02:27 → 2SOUTHHOLD 05-31 02:27 → 3ANU 06-03 06:07
PROVIDERS: ADMIT Internal Medicine; ATTEND Internal Medicine